=== PATIENT | male | born 1985 | race Two or more races ===

== ENCOUNTER 2020-08-03 06:38 | Emergency (ER) | payer OTHER, SELFPAY ==
[2020-08-03 06:53] VITALS: BP 116/73; PULSE 78; RESP 18; TEMP 35.8; O2SAT 97; BMI 24.3
--- NOTE | 2020-08-03 07:06 | ED.SKABFB ---
HPI - Skin/Abscess/Foreign Bdy General Chief complaint: Wound/Laceration Stated complaint: Wound Check Time Seen by Provider: 08/03/20 07:06 Source: patient Mode of arrival: ambulatory Limitations: no limitations History of Present Illness HPI narrative: left lesion left groin - x 3 months no associated symptoms has not followed up with the PCP complaint: lesion Onset (ago): month(s) (3) Location: generalized (left groin) Severity: mild Relieving factors: none Exacerbating factors: none Context: none Related Data Home Medications Medication Instructions Recorded Confirmed hydroxyzine HCl [Atarax] 100 mg PO NEEDED PRN 08/03/20 08/03/20 Allergies Allergy/AdvReac Type Severity Reaction Status Date / Time Penicillins [PCN] Allergy Mild RASH Verified 08/03/20 06:48 silver AdvReac Intermediate rash Verified 08/03/20 06:48 [From [employer] MESH] Review of Systems Review of Systems: Constitutional : No Fever, No Chills, Cardiovascular : No Chest Pain, No SOB Respiratory : No Dyspnea Gastrointestinal : No abdominal pain Musculoskeletal : No Joint Swelling Skin : No rash, positive skin lesion Neuro : No Weakness, No Numbness Psych : No SI/HI PMFSH Past Medical History Medical History (Updated 08/03/20 @ 07:08 by Margret Mack DO) Schizophrenia Social History Social History (Updated 08/03/20 @ 07:07 by Margret Mack DO) Smoking Status: Current every day smoker Substance Use Type: Marijuana Physical Exam Vital Signs and I&O and Narrative: Vital Signs and I&O: Vital Signs Temp 96.5 F L 08/03/20 06:53 Pulse 78 08/03/20 06:53 Resp 18 08/03/20 06:53 BP 116/73 08/03/20 06:53 Pulse Ox 97 08/03/20 06:53 Intake & Output 08/02/20 08/03/20 08/03/20 18:59 06:59 18:59 Weight 72.668 kg Body Mass Index 24.3 Appearance: Alert. Oriented X3. No acute distress. Eyes: Pupils equal, round and reactive to light. ENT: Pharynx normal. Neck: Normal inspection. Neck supple. CVS: Normal heart rate and rhythm. Pulses normal. Respiratory: No respiratory distress. Breath sounds normal. Abdomen: Soft and nontender. Skin: Skin warm and dry. Normal skin color. Normal skin turgor. L groin small 1cm firm lesion no erythema/ttp/no fluctuance, no signs of infection Extremities: No lower extremity edema. No lower extremity edema. Neuro: Oriented X 3. No motor deficit. No sensory deficit. MDM - Skin/Abscess/Foreign Bdy MDM Narrative Medical decision making narrative: chronic bump in left groin - no signs of infection, needs follow up for biopsy at this time, not on scrotum itself in groin from prior boil that he treated at home could be scar formation Discharge Plan Discharge Clinical Impression: Bumps on skin Patient Disposition: Home, Self-Care Instructions: Abscess Follow-up (ED) Prescriptions: No Action Atarax 100 mg Tablet 100 mg PO NEEDED PRN (Reason: Anxiety) RF: 0 Referrals: Ramon Thompson MD [Physician] - 3 days (call wednesday to schedule appointment)
== END 2020-08-03 08:06 | disposition home or self-care (01) ==
LOC: HO.ED 07:52
PROVIDERS: Emergency Provider Emergency Medicine
DX: L98.8 Other specified disorders of the skin and subcutaneous tissue (principal); R10.30 Lower abdominal pain, unspecified; F17.200 Nicotine dependence, unspecified, uncomplicated
CPT/HCPCS: 99283

== ENCOUNTER 2020-08-11 22:03 | Emergency (ER) | payer OTHER, SELFPAY ==
[2020-08-11 22:04] VITALS: BP 98/64; PULSE 98; RESP 16; TEMP 37.9; O2SAT 98; BMI 22.8
[2020-08-12 00:48] VITALS: BP 104/58; PULSE 84; RESP 16; TEMP 36.9; O2SAT 98
--- NOTE | 2020-08-12 00:49 | ED.GENADULT ---
HPI - General Adult General Chief complaint: General Medical Stated complaint: ABD PAIN Time Seen by Provider: 08/12/20 00:43 History of Present Illness HPI narrative: mid abdominal pain for the past 4 5 hours positive nausea no vomiting no diarrhea. Patient states he ate seafood and shortly afterwards started getting stomach cramping. Denies fevers or chills denies recent illness MD complaint: abdominal pain Onset (ago): hour(s) ( 3 hours) Severity: moderate Severity scale (1-10): 4 Quality: stabbing Pain Consistency: constant Relieving factors: none Related Data Home Medications Medication Instructions Recorded Confirmed hydroxyzine HCl [Atarax] 100 mg PO NEEDED PRN 08/03/20 08/03/20 Allergies Allergy/AdvReac Type Severity Reaction Status Date / Time Penicillins [PCN] Allergy Mild RASH Verified 08/03/20 06:48 silver AdvReac Intermediate rash Verified 08/03/20 06:48 [From [employer] MESH] Review of Systems Review of Systems: Constitutional : No Weight loss, No Fever, No Chills, No Night Sweats, No Fatigue, No Malaise ENT/Mouth : No Hearing loss, No Ear Pain, No Nasal Congestion, No Sinus Pain, No Hoarseness, No sore throat, No Rhinorrhea, No Swallowing Difficulty Eyes: No Eye Pain, No Swelling, No Redness, No Foreign Body, No Discharge, No Vision Changes Cardiovascular : No Chest Pain, No SOB, No Dyspnea on Exertion, No Orthopnea, No Edema, No Palpitations Respiratory : No Cough, No Sputum, No Wheezing, No Smoke Exposure, No Dyspnea Gastrointestinal : Positive Nausea, Positive Vomiting, positive Diarrhea, positive abdominal Pain, No Hematochezia, No Melena Genitourinary : no irregular bleeding, No Dysuria, No Urinary Frequency, No Hematuria, No Urinary Incontinence, No Urgency, No Flank Pain, No Urinary Flow Changes, No Hesitancy Musculoskeletal : No joint pain, No Myalgias, No Joint Swelling Skin : No Skin Lesions, No rash Neuro : No Weakness, No Numbness, No Paresthesias, No Loss of Consciousness, No Dizziness, No Headache Psych : No Anxiety/Panic, No Depression, No SI/HI/AH/VH, No Social Issues, Heme/Lymph: No Bruising, No Bleeding,No Lymphadenopathy Endocrine : No Polyuria, No Polydipsia, No Temperature Intolerance Yes all other systems are reviewed and are negative [facility] Past Medical History Medical History (Updated 08/12/20 @ 02:30 by Scott Terry DO) Foot drop, right foot Schizophrenia Surgical History (Updated 08/12/20 @ 00:51 by Scott Terry DO) No pertinent past surgical history Social History Social History Smoking Status: Current every day smoker Substance Use Type: Marijuana Advance Directives: No Advance Directives Information Provided: No Physical Exam Vital Signs: Vital Signs: Vital Signs Temp Pulse Resp BP Pulse Ox 08/12/20 02:45 98.2 F 76 16 106/49 L 98 08/12/20 00:48 98.4 F 84 16 104/58 L 98 08/11/20 22:04 100.2 F 98 16 98/64 98 Body Mass Index 22.8 insert vital signs Appearance: Alert. Oriented X3. No acute distress. Eyes: Pupils equal, round and reactive to light. ENT: Pharynx normal. Neck: Normal inspection. Neck supple. No lymph nodes noted. No crepitus CVS: Normal heart rate and rhythm. Pulses normal. Normal S1 and S2 Respiratory: No respiratory distress. Breath sounds normal. No Wheezing. No rales Abdomen: Soft and tenderness to mid abdomen. No rigidity. No distention. good BS x4 Skin: Skin warm and dry. Normal skin color. Normal skin turgor. Extremities: No lower extremity edema. Neurovascular intact to all extremities. No Lacerations. No Rash Neuro: Oriented X 3. No motor deficit. No sensory deficit. Moving all extermities. No slurred speech. Course Course Course Narrative: patient mid abdominal pain. Will get basic lab work IV fluids IV Toradol and IV Zofran Medical Decision Making [facility] Narrative Medical decision making narrative: 35-year-old male with 1 day history abdominal pain labs within normal limits. Patient wants to go home. Tolerating p.o. intake. No distress no discomfort Lab Data Result diagrams: 08/12/20 01:09 08/12/20 01:09 Labs: Lab Results 08/12/20 08/12/20 Range/Units 01:09 01:09 WBC 11.9 H (4.8-10.8) X10*3/uL RBC 3.93 L (4.60-5.80) X10*6/uL Hgb 13.1 L (14.0-18.0) g/dl Hct 38.8 L (42-52) % MCV 98.7 H (80-98) fL MCH 33.3 H (27.0-33.0) pg MCHC 33.8 (31.0-36.0) g/dl RDW 12.3 (11.0-16.0) % Plt Count 199 (160-400) X10*3/uL MPV 9.8 (9.4-12.4) fL Immature Gran % (Auto) 0.3 (0.0-0.4) % Neut % (Auto) 58.3 (45-73) % Lymph % (Auto) 31.2 (20-40) % Jones % (Auto) 6.9 (2-11) % Eos % (Auto) 2.9 (0-4) % Baso % (Auto) 0.4 (0-2) % Lymph # (Auto) 3.7 (1.2-4.9) X10*3/uL Jones # (Auto) 0.8 (0.1-1.2) X10*3/uL Eos # (Auto) 0.3 (0.0-0.4) X10*3/uL Baso # (Auto) 0.1 (0.0-0.2) X10*3/uL Abs Immat Gran (auto) 0.03 (0.00-0.03) X10*3/uL Absolute Neuts (auto) 6.9 (2.0-8.3) X10*3/uL Absolute Nucleated RBC 0.000 (0.0-0.012) X10*3/uL Nucleated RBC % (auto) 0.0 (0.0-0.2) /100WBC Sodium 141 (135-145) mmol/L Potassium 3.8 (3.3-5.1) mmol/l Chloride 105 (96-108) mmol/L Carbon Dioxide 31 H (22-29) mmol/L Anion Gap 9 L (12-20) BUN 15 (9-16) mg/dL Creatinine 1.10 (0.5-1.4) mg/dL Estim Creat Clear Calc 90.2 Estimated GFR > 60 Random Glucose 86 (60-115) mg/dL Calcium 8.5 (8.4-10.2) mg/dL Total Bilirubin 0.3 (0.0-1.0) mg/dL Direct Bilirubin < 0.2 (0.0-0.5) mg/dL AST 29 (5-37) U/L ALT 84 H (0-40) U/L Alkaline Phosphatase 63 (39-117) U/L Total Protein 6.4 L (6.5-8.0) g/dL Albumin 4.0 (3.5-5.0) g/dL Lipase 35 (8-78) U/L Discharge Plan Discharge Clinical Impression: Abdominal pain Qualifiers: Abdominal location: generalized Qualified Code(s): R10.84 - Generalized abdominal pain Patient Disposition: Home, Self-Care Instructions: Abdominal Pain (ED) Additional Instructions: Thank you for visiting the emergency department today. If your symptoms worsen or do not resolve completely please return to the emergency department immediately or call 911. if he have any questions please call your primary care physician Prescriptions: No Action Atarax 100 mg Tablet 100 mg PO NEEDED PRN (Reason: Anxiety) RF: 0 Referrals: [facility] [Provider Group] - 2 days Interventions: ED Discharge Assessment Last Done: 08/12/20 02:57 Discharge Date/Time: 08/12/20 02:58
[2020-08-12] MEDS: Ketorolac Tromethamine 30 MG/ML VIAL IVPUSH (01:10)
[2020-08-12] MEDS: ondansetron HCL 4 MG/2 ML VIAL IVPUSH (01:10)
[2020-08-12] MEDS: 0.9 % Sodium Chloride 1,000 ML 999 ML IVCONT (01:10)
[2020-08-12 01:16] LABS: Basophils Absolute Auto 0.1 X10*3/uL (0.0-0.2); Basophils Percent Auto 0.4 % (0-2); Eosinophils Absolute Auto 0.3 X10*3/uL (0.0-0.4); Eosinophils Percent Auto 2.9 % (0-4); Hematocrit 38.8 % (42-52); Hemoglobin 13.1 g/dl (14.0-18.0); Imm Gran Abs Auto 0.03 X10*3/uL (0.00-0.03); Imm Gran Pct Auto 0.3 % (0.0-0.4); Lymphocytes Absolute Auto 3.7 X10*3/uL (1.2-4.9); Lymphocytes Percent Auto 31.2 % (20-40); MANUAL DIFF FLAG NO; Mean Corpuscular HGB Conc 33.8 g/dl (31.0-36.0); Mean Corpuscular Hemoglobin 33.3 pg (27.0-33.0); Mean Corpuscular Volume 98.7 fL (80-98); Mean Platelet Volume 9.8 fL (9.4-12.4); Monocytes Absolute Auto 0.8 X10*3/uL (0.1-1.2); Monocytes Percent Auto 6.9 % (2-11); Neutrophils Absolute Auto 6.9 X10*3/uL (2.0-8.3); Neutrophils Percent Auto 58.3 % (45-73); Platelet Count 199 X10*3/uL (160-400); Red Blood Count 3.93 X10*6/uL (4.60-5.80); Red Cell Distribution Width 12.3 % (11.0-16.0); White Blood Count 11.9 X10*3/uL (4.8-10.8)
[2020-08-12 02:00] LABS: Alanine Aminotransferase 84 U/L (0-40); Alkaline Phosphatase 63 U/L (39-117); Anion Gap 9 (12-20); Aspartate Amino Transferase 29 U/L (5-37); Bilirubin Direct < 0.2 mg/dL (0.0-0.5); Bilirubin Total 0.3 mg/dL (0.0-1.0); Blood Urea Nitrogen 15 mg/dL (9-16); Calcium 8.5 mg/dL (8.4-10.2); Carbon Dioxide 31 mmol/L (22-29); Chloride 105 mmol/L (96-108); Creatinine Clr Calc Pharmacy 90.2; Estimated Glomerular Filt Rate > 60; Glucose Random 86 mg/dL (60-115); Lipase 35 U/L (8-78); Potassium 3.8 mmol/l (3.3-5.1); Sodium 141 mmol/L (135-145); Total Protein 6.4 g/dL (6.5-8.0)
[2020-08-12 02:45] VITALS: BP 106/49; PULSE 76; RESP 16; TEMP 36.8; O2SAT 98
== END 2020-08-12 02:58 | disposition home or self-care (01) ==
PROVIDERS: Emergency Provider Emergency Medicine
DX: R10.84 Generalized abdominal pain (principal); F17.200 Nicotine dependence, unspecified, uncomplicated; F12.90 Cannabis use, unspecified, uncomplicated
CPT/HCPCS: 36415; 80048; 80076; 83690; 85025; 96361; 96374; 96375; 99284; J1885; J2405

== ENCOUNTER 2020-08-13 04:35 | Emergency (ER) | payer OTHER, SELFPAY ==
[2020-08-13 04:39] VITALS: BP 140/74; PULSE 74; RESP 16; TEMP 36.2; O2SAT 98; BMI 22.0
--- NOTE | 2020-08-13 05:38 | ED_ITS ---
HPI - GI Bleed General Chief complaint: GI Bleed Stated complaint: HEMORRHOIDS Time Seen by Provider: 08/13/20 05:29 Source: patient Mode of arrival: ambulatory Limitations: no limitations History of Present Illness HPI Narrative: Patient comes to emergency room complaining of anal pain with bowel movements and constipation. last night, patient noticed blood in the toilet paper after he wiped. MD complaint: blood on toilet paper Onset (ago): day(s) Pain Consistency: intermittent Severity: moderate Relieving factors: none Exacerbating factors: bowel movement Treatments Prior to Arrival: none Related Data Home Medications Medication Instructions Recorded Confirmed hydroxyzine HCl [Atarax] 100 mg PO NEEDED PRN 08/03/20 08/03/20 Previous Rx's Medication Instructions Recorded hydrocortisone [Anusol-HC] 1 applic [place] BEDTIME PRN #30 g 08/13/20 polyethylene glycol 3350 [Miralax] 17 g PO DAILY #119 g 08/13/20 Allergies Allergy/AdvReac Type Severity Reaction Status Date / Time Penicillins [PCN] Allergy Mild RASH Verified 08/03/20 06:48 silver AdvReac Intermediate rash Verified 08/03/20 06:48 [From [employer] MESH] Review of Systems Review of Systems: Constitutional: No Weight loss, No Fever, No Chills, No Night Sweats, No Fatigue, No Malaise ENT/Mouth: No Hearing loss, No Ear Pain, No Nasal Congestion, No Sinus Pain, No Hoarseness, No sore throat, No Rhinorrhea, No Swallowing Difficulty Eyes: No Eye Pain, No Swelling, No Redness, No Foreign Body, No Discharge, No Vision Changes Cardiovascular: No Chest Pain, No SOB, No Dyspnea on Exertion, No Orthopnea, No Edema, No Palpitations Respiratory: No Cough, No Sputum, No Wheezing, No Smoke Exposure, No Dyspnea Gastrointestinal: No Nausea, No Vomiting, No Diarrhea, Three weeks with Constipation, No abdominal Pain, anal pain with bowel movements and wiping Genitourinary: no irregular bleeding, No Dysuria, No Urinary Frequency, No Hematuria, No Urinary Incontinence, No Urgency, No Flank Pain, No Urinary Flow Changes, No Hesitancy Musculoskeletal: No joint pain, No Myalgias, No Joint Swelling Skin: No Skin Lesions, No rash Neuro: No Weakness, No Numbness, No Paresthesias, No Loss of Consciousness, No Dizziness, No Headache Psych: No Anxiety/Panic, No Depression, No SI/HI/AH/VH, No Social Issues, Heme/Lymph: No Bruising, No Bleeding,No Lymphadenopathy Endocrine: No Polyuria, No Polydipsia, No Temperature Intolerance [facility] Past Medical History Medical History Foot drop, right foot Schizophrenia Surgical History No pertinent past surgical history Social History Social History Smoking Status: Current every day smoker Substance Use Type: Marijuana Advance Directives: No Physical Exam Vital Signs: Vital Signs: Vital Signs Temp Pulse Resp BP Pulse Ox 08/13/20 04:39 97.1 F 74 16 140/74 H 98 Body Mass Index 22.0 Appearance: Alert. Oriented X3. No acute distress. Eyes: Pupils equal, round and reactive to light. ENT: Pharynx normal. Neck: Normal inspection. Neck supple. No lymph nodes noted. No crepitus CVS: Normal heart rate and rhythm. Pulses normal. Normal S1 and S2 Respiratory: No respiratory distress. Breath sounds normal. No Wheezing. No rales Abdomen: Soft and nontender. No rigidity. No distention. good BS x4. rectal exam shows fissures, no blood Skin: Skin warm and dry. Normal skin color. Normal skin turgor. Extremities: No lower extremity edema. No lower extremity edema. No Lacerations. No Rash Neuro: Oriented X 3. No motor deficit. No sensory deficit. Moving all extermities. No slurred speech. MDM - GI Bleed MDM Narrative Medical decision making narrative: patient declined KENN[facility]Y. I discussed with the patient the physical exam, patient has features in the anus. Discussed with the patient that these are likely secondary to the constipation. Differential Diagnosis Differential diagnosis: Likely hemorrhoids and anal fissure Discharge Plan Discharge Clinical Impression: Anal fissure Patient Disposition: Home, Self-Care Instructions: Anal Fissure (ED) Additional Instructions: If you have any worsening symptoms, any new symptoms, please return to the emergency room or call 911 Prescriptions: New hydrocortisone [Anusol-HC] 2.5 % cream with perineal applicator 1 applic DC BEDTIME PRN (Reason: pain) Qty: 30 RF: 0 polyethylene glycol 3350 [Miralax] 17 gram/dose powder 17 g PO DAILY Qty: 119 RF: 0 No Action Atarax 100 mg Tablet 100 mg PO NEEDED PRN (Reason: Anxiety) RF: 0
== END 2020-08-13 05:59 | disposition home or self-care (01) ==
PROVIDERS: Emergency Provider Emergency Medicine
DX: K60.2 Anal fissure, unspecified (principal); F17.200 Nicotine dependence, unspecified, uncomplicated; F12.90 Cannabis use, unspecified, uncomplicated; Z79.899 Other long term (current) drug therapy
CPT/HCPCS: 99283

== ENCOUNTER 2020-08-14 04:08 | Emergency (ER) | payer OTHER, SELFPAY ==
[2020-08-14 04:59] VITALS: BP 130/80; PULSE 83; RESP 18; TEMP 36.9; O2SAT 98; BMI 23.5
== END 2020-08-14 05:48 | disposition left against medical advice (07) ==
PROVIDERS: Emergency Provider Emergency Medicine
DX: K59.00 Constipation, unspecified (principal)
CPT/HCPCS: 99281; 99284

== ENCOUNTER 2020-08-15 07:31 | Emergency (ER) | payer OTHER, SELFPAY ==
[2020-08-15 07:54] VITALS: BP 144/80; PULSE 76; RESP 14; TEMP 36.9; O2SAT 96; BMI 24.2
--- NOTE | 2020-08-15 07:59 | ED.BACK ---
HPI - Back Pain/Injury General Chief Complaint: Back Pain/Injury Stated Complaint: BACK PAIN Time Seen by Provider: 08/15/20 07:58 Source: patient Mode of arrival: ambulatory History of Present Illness HPI Narrative: 35 years old male came in with acute on chronic back pain, patient had old back injury related to work many years ago. MD elicited complaint: back pain Pertinent past history: prior back pain Onset (ago): week(s) ( Several) Timing: constant Severity: moderate Similar Symptoms Previously: Yes Quality: dull Location: lumbar spine Radiation: none Exacerbating factors: immobilization Relieving factors: immobilization Related Data Home Medications Medication Instructions Recorded Confirmed hydroxyzine HCl [Atarax] 100 mg PO NEEDED PRN 08/03/20 08/03/20 Previous Rx's Medication Instructions Recorded hydrocortisone [Anusol-HC] 1 applic [place] BEDTIME PRN #30 g 08/13/20 polyethylene glycol 3350 [Miralax] 17 g PO DAILY #119 g 08/13/20 cyclobenzaprine 10 mg PO TID PRN #30 tab 08/15/20 Allergies Allergy/AdvReac Type Severity Reaction Status Date / Time Penicillins [PCN] Allergy Mild RASH Verified 08/14/20 04:59 silver AdvReac Intermediate rash Verified 08/14/20 04:59 [From [employer] MESH] Review of Systems Review of Systems: Yes all other systems are reviewed and are negative PMFSH Past Medical History Attestation statement: The following information was validated with the patient. Medical History Foot drop, right foot Schizophrenia Surgical History No pertinent past surgical history Social History Social History Alcohol intake: never Smoking Status: Current every day smoker Use of substances other than those prescribed or required for medical reasons: Yes Substance Use Type: Marijuana Substance Use Frequency: Daily Physical Exam Vital Signs: Vital Signs: Vital Signs Temp Pulse Resp BP Pulse Ox 08/15/20 07:54 98.4 F 76 14 144/80 H 96 Body Mass Index 24.2 Const: General: cooperative and healthy appearing Orientation/consciousness: oriented to person HENMT: Head: Yes normal to inspection and Yes No palpable skull fracture present Ears: hearing grossly normal bilaterally General nose exam: Normal external nose present Eyes: General: appearance normal, both eyes and all related structures Neck: Neck: Yes normal visual inspection Chest: Chest palpation & inspection: normal inspection of the chest Resp: Effort & Inspection: normal respiratory effort Cardio: Jugular venous distension: no JVD Palpation: normal PMI GI: Inspection: Yes normal to inspection : General: Yes Bimanual renal exam normal bilaterally and Yes no CVA tenderness Back/Spine/Pelvis: Back: no CVA tenderness Cervical Spine: normal cervical lordosis Thoracic/Lumbar Spine: straight leg raise negative bilaterally Pelvis: no pain with anterior-posterior compression Skin: General skin exam: no rashes or lesions noted Neuro: General: oriented to person Cognition (Neuro): normal cognition Gait exam (Neuro): Normal gait present Motor exam (neuro): 5/5 motor strength present throughout Extrem: Other: chronic right foot drop. General: Yes normal to inspection Psych: Appearance: grossly normal Mental Status: mental status grossly normal Speech and movement: Normal speech and movement present Course Course Course Narrative: Acute on chronic back pain due to old work injury. Reevaluation(s) Reevaluation #1: Patient is applying lidocaine patches on the lower back, patient felt better with Flexeril. MDM - Back Pain/Injury MDM Narrative Medical decision making narrative: 35-year-old male acute on chronic back pain due to old work-related injury with chronic right foot drop, patient ran out of his Flexeril muscle relaxant. Normal neuro exam. Will discharge with Flexeril prescription. Differential Diagnosis Differential diagnosis: Likely lumbar radiculopathy and strain of lumbar region Medical Records Attestation: I reviewed the patient's medical records. Discharge Plan Discharge Clinical Impression: Strain of lumbar region Patient Disposition: Home, Self-Care Instructions: Chronic Back Pain (DC) Prescriptions: New cyclobenzaprine 10 mg tablet 10 mg PO TID PRN (Reason: muscle spasm) Qty: 30 RF: 0 No Action Atarax 100 mg Tablet 100 mg PO NEEDED PRN (Reason: Anxiety) RF: 0 hydrocortisone [Anusol-HC] 2.5 % cream with perineal applicator 1 applic [place] BEDTIME PRN (Reason: pain) Qty: 30 RF: 0 polyethylene glycol 3350 [Miralax] 17 gram/dose powder 17 g PO DAILY Qty: 119 RF: 0
[2020-08-15] MEDS: Cyclobenzaprine HCl 10 MG TABLET PO (08:14)
== END 2020-08-15 08:20 | disposition home or self-care (01) ==
LOC: HO.ED 08:12
PROVIDERS: Emergency Provider Emergency Medicine
DX: S39.012A Strain of muscle, fascia and tendon of lower back, initial encounter (principal); X58.XXXA Exposure to other specified factors, initial encounter; F17.200 Nicotine dependence, unspecified, uncomplicated; F12.90 Cannabis use, unspecified, uncomplicated; Y93.9 Activity, unspecified; Y92.9 Unspecified place or not applicable; Y99.0 Civilian activity done for income or pay; Z79.899 Other long term (current) drug therapy
CPT/HCPCS: 99283; 99284

== ENCOUNTER 2020-08-15 20:12 | Emergency (ER) | payer OTHER, SELFPAY ==
[2020-08-15 20:47] VITALS: BP 113/60; PULSE 70; RESP 16; TEMP 37.2; O2SAT 100; BMI 22.0
--- NOTE | 2020-08-15 21:26 | PC.NURSE ---
PT IN W/C ROLLING ALL AROUND REPEATIVELY TOLD HE NEEDED TO STAY IN ROOM. PT KEEPS STATING HE HAS IMORTANT THING TO DO AND HE IS NOT WAITING ALL DAY RADHA TEE IN ROOM TO ASSESS PT.
--- NOTE | 2020-08-15 21:27 | ED.LOWEXIN ---
HPI - Extremity Injury (Lower) General Chief Complaint: Extremity Injury, Lower Stated Complaint: FOOT PAIN Source: patient Mode of arrival: ambulatory Limitations: no limitations History of Present Illness HPI Narrative: Patient presents to the ED for chronic right lower extremity. patient has Right foot drop this year and never followed up with orthopedics. patient denies any new trauma. MD complaint: leg injury Related Data Home Medications Medication Instructions Recorded Confirmed hydroxyzine HCl [Atarax] 100 mg PO NEEDED PRN 08/03/20 08/03/20 Previous Rx's Medication Instructions Recorded hydrocortisone [Anusol-HC] 1 applic [place] BEDTIME PRN #30 g 08/13/20 polyethylene glycol 3350 [Miralax] 17 g PO DAILY #119 g 08/13/20 cyclobenzaprine 10 mg PO TID PRN #30 tab 08/15/20 tramadol 50 mg PO Q8H PRN #12 tab 08/15/20 Allergies Allergy/AdvReac Type Severity Reaction Status Date / Time Penicillins [PCN] Allergy Mild RASH Verified 08/16/20 01:55 silver AdvReac Intermediate rash Verified 08/16/20 01:55 [From [employer] MESH] Review of Systems Review of Systems: Yes all other systems are reviewed and are negative and unobtainable due to endotracheal tube Constitutional: Constitutional: Reports as per HPI and Reports no additional constitutional complaints ENT: Reports system reviewed and no additional complaints, except as documented and Reports as per HPI Cardiovascular: Cardiovascular: Reports as per HPI, Reports no additional cardiovascular complaints, Denies chest pain at rest, Denies chest pain with activity and Denies dyspnea Respiratory: Respiratory: Reports as per HPI, Reports no additional respiratory complaints, Denies chest congestion, Denies excessive phlegm production, Denies pain on inspiration, Denies pain with cough and Denies dyspnea Musculoskeletal: Comments: Chronic Right lower extremity pain PMFSH Past Medical History Medical History Foot drop, right foot Schizophrenia Surgical History No pertinent past surgical history Social History Social History Alcohol intake: never Smoking Status: Current every day smoker Substance Use Type: Marijuana Advance Directives: No Advance Directives Information Provided: No Physical Exam Vital Signs: Vital Signs: Vital Signs Temp Pulse Resp BP Pulse Ox 08/15/20 20:47 98.9 F 70 16 113/60 100 Body Mass Index 22.0 Const: General: cooperative, healthy appearing and comfortable Orientation/consciousness: oriented to person, oriented to place, oriented to time and patient oriented x3 HENMT: Head: Yes normal to inspection Eyes: General: appearance normal, both eyes and all related structures Neck: Neck: Yes normal visual inspection and Yes full ROM Chest: Chest palpation & inspection: normal inspection of the chest and normal palpation of entire chest wall Resp: Effort & Inspection: normal respiratory effort and able to speak in complete sentences Cardio: Jugular venous distension: no JVD Heart sounds: S1 normal heart sound present and S2 normal heart sound present GI: Inspection: Yes normal to inspection, No abdominal wall ecchymosis, No Abdominal wall edema and No distended : General: No CVA tenderness and Yes no CVA tenderness Back/Spine/Pelvis: Back: no CVA tenderness and No CVA tenderness Skin: General skin exam: no rashes or lesions noted Neuro: Other: chronic right lower extremity foot drop. Vascular and neuro exam is intact. Patient ambulates with a limp General: oriented to person, oriented to place, oriented to time, patient oriented x3 and CN's II-XI intact bilaterally Cranial nerves: Yes CN's II-XII intact bilaterally Extrem: General: Yes normal to inspection and Yes full ROM Psych: Appearance: grossly normal and well kempt Course Course Course Narrative: patient states he wants a referral for orhopedic and also prescription for pain. No new imaging indicated Reevaluation(s) Reevaluation #1: patient is safe for discharge. Patient walked out the ED before recieving discharge papers and prescription. MDM - Extremity Injury (Lower) MDM Narrative Medical decision making narrative: FOot drop Discharge Plan Discharge Clinical Impression: Foot drop, right Patient Disposition: Elopement Instructions: Foot Drop (ED) Additional Instructions: Return to the ED for any leg swelling, redness, calf pain, weakness, chest pain, shortness, worsening gait, or any other concerning symptoms. Prescriptions: New tramadol 50 mg tablet 50 mg PO Q8H PRN (Reason: pain) Qty: 12 RF: 0 No Action Atarax 100 mg Tablet 100 mg PO NEEDED PRN (Reason: Anxiety) RF: 0 hydrocortisone [Anusol-HC] 2.5 % cream with perineal applicator 1 applic [place] BEDTIME PRN (Reason: pain) Qty: 30 RF: 0 polyethylene glycol 3350 [Miralax] 17 gram/dose powder 17 g PO DAILY Qty: 119 RF: 0 cyclobenzaprine 10 mg tablet 10 mg PO TID PRN (Reason: muscle spasm) Qty: 30 RF: 0 Referrals: Oh Clemente MD [Physician] - 2 days ( Right foot drop since the summer and patient never followed up.) Interventions: ED Discharge Assessment Last Done: 08/15/20 21:52 Discharge Date/Time: 08/15/20 21:31 Print Language: [place]i
--- NOTE | 2020-08-15 21:30 | PC.NURSE ---
PT STATED HE DID NOT WANT TO WAIT FOR PAPER WORK AND LEFT ROOM AMBULATING WITH STEADY GAIT.
== END 2020-08-15 21:31 | disposition left against medical advice (07) ==
PROVIDERS: Emergency Provider Emergency Medicine
DX: M21.371 Foot drop, right foot (principal)
CPT/HCPCS: 99283; 99284

== ENCOUNTER 2020-08-16 01:46 | Emergency (ER) | payer OTHER, SELFPAY ==
[2020-08-16 01:49] VITALS: BP 122/64; PULSE 73; RESP 16; TEMP 35.6; O2SAT 99; BMI 52.0
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
--- NOTE | 2020-08-16 03:05 | XR_ITS ---
EXAMINATION: XR ANKLE, RIGHT CLINICAL INFORMATION: Acute on chronic right ankle pain COMPARISON: None TECHNIQUE: AP, lateral, and mortise views of the right ankle. FINDINGS: Osseous alignment is anatomic. No acute fracture is seen. No significant focal soft tissue abnormality identified. IMPRESSION: No acute findings.
--- NOTE | 2020-08-16 03:05 | XR_ITS ---
EXAMINATION: XR KNEE, RIGHT CLINICAL INFORMATION: Worsening right knee pain COMPARISON: None TECHNIQUE: Four views of the right knee. FINDINGS: Osseous alignment is anatomic. Joint spaces are maintained. No acute fracture is seen. No significant effusion. IMPRESSION: No acute findings.
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
--- NOTE | 2020-08-16 03:43 | PC.NURSE ---
pt dressed and ambulatory with steady gait in room.
== END 2020-08-16 04:17 | disposition home or self-care (01) ==
PROVIDERS: Emergency Provider Emergency Medicine
DX: M25.561 Pain in right knee (principal); M25.571 Pain in right ankle and joints of right foot; M54.5 Low back pain; Z79.899 Other long term (current) drug therapy
CPT/HCPCS: 73564; 73610; 99283

== ENCOUNTER 2020-08-17 05:10 | Emergency (ER) | payer OTHER, SELFPAY ==
[2020-08-17 05:19] VITALS: BP 108/58; PULSE 72; RESP 16; TEMP 37.1; O2SAT 97; BMI 22.3
[2020-08-17 06:02] VITALS: BP 108/58; PULSE 72; RESP 16; TEMP 37.1
[2020-08-17] MEDS: Acetaminophen 325 MG TABLET 975 MG PO (06:04)
[2020-08-17] MEDS: Ketorolac Tromethamine 15 MG/ML VIAL IM (06:05)
[2020-08-17] MEDS: Lidocaine 4 % Patch ADH..PATCH 1 PATCH TRANSDERMA (06:08)
--- NOTE | 2020-08-17 06:30 | ED_ITS ---
HPI - Back Pain/Injury General Chief Complaint: Back Pain/Injury Stated Complaint: Back pain Time Seen by Provider: 08/17/20 05:25 Source: patient Mode of arrival: ambulatory Limitations: no limitations History of Present Illness HPI Narrative: this is a 35-year-old male who presents with chronic back pain that he states he ran out of lidocaine patches for and has been worsening over the past 1-2 days. Patient denies any associated fevers, chills, urinary pain /burning / frequency, diarrhea, or nausea/vomiting. Related Data Home Medications Medication Instructions Recorded Confirmed hydroxyzine HCl [Atarax] 100 mg PO NEEDED PRN 08/03/20 08/03/20 Previous Rx's Medication Instructions Recorded hydrocortisone [Anusol-HC] 1 applic [place] BEDTIME PRN #30 g 08/13/20 polyethylene glycol 3350 [Miralax] 17 g PO DAILY #119 g 08/13/20 cyclobenzaprine 10 mg PO TID PRN #30 tab 08/15/20 tramadol 50 mg PO Q8H PRN #12 tab 08/15/20 ketorolac 10 mg PO Q6H PRN 5 Days #20 tab 08/17/20 Allergies Allergy/AdvReac Type Severity Reaction Status Date / Time Penicillins [PCN] Allergy Mild RASH Verified 08/16/20 01:55 silver AdvReac Intermediate rash Verified 08/16/20 01:55 [From TEGADERM AG MESH] Review of Systems Review of Systems: Pertinent positives and negatives as stated in HPI 10 point review systems is otherwise negative. [facility] Past Medical History Source: nursing notes reviewed Medical History Foot drop, right foot Schizophrenia Surgical History No pertinent past surgical history Social History Social History Alcohol intake: former Smoking Status: Current every day smoker Smoked in Last 30 Days: Yes Use of substances other than those prescribed or required for medical reasons: Yes Substance Use Type: Marijuana Substance Use Frequency: Daily Last Used Substance: Just Prior to Admission Any prior treatment program specific to substance use: No Advance Directives: No Advance Directives Information Provided: No Physical Exam Vital Signs: Vital Signs: Vital Signs Temp Pulse Resp BP Pulse Ox 10/17/20 06:02 98.7 F 72 16 108/58 L 08/17/20 05:19 98.7 F 72 16 108/58 L 97 Body Mass Index 22.3 VITAL SIGNS: Reviewed. GENERAL: Well developed, well nourished, in no acute distress. HEAD: Normocephalic/atraumatic, EYES: PERRLA, EOMI intact without pain, no nystagmus/pallor/icterus noted EARS: Ext canals without abnormality, TMs non-bulging and non-erythematous NOSE: Nares patent bilateral OROPHARYNX: no oral lesions noted, posterior pharynx clear and non-erythematous without noted tonsillar enlargement/erythema/exudates NECK: Supple, no adenopathy LUNGS: Normal breath sounds. No adventitious sounds or accessory muscle use. SpO2<97%> CARDIOVASCULAR: Regular rate and rhythm without noted murmurs, no JVD or lower extremity edema. ABDOMEN: Soft, non-tender, non-distended with bowel sounds. No rigidity. No guarding. No palpable masses or hernias noted MUSCULOSKELETAL: No tenderness, deformities, or effusions noted on gross inspection. EXTREMITIES: No cyanosis, clubbing or edema. BACK: Straight leg test is negative strength 5/5 and symmetric SKIN: Inspection of the skin reveals no rashes, ulcerations, jaundice, pallor, or petechiae. NEUROLOGIC: Alert and oriented x 4. Strength and sensation to light touch were grossly intact Course Course Course Narrative: this is a 35-year-old male with history and clinical presentation consistent with chronic lower back pain with a very mild exacerbation and doubt renal colic, UTI/cystitis. Patient received combination analgesics here in the emergency department with almost complete resolution of symptoms on re-evaluation. Patient was reassured and given a treatment regimen as well as exercises to further assist in back recovery. Discharge Plan Discharge Clinical Impression: Back pain Qualifiers: Back pain location: low back pain Chronicity: chronic Back pain laterality: left Sciatica presence: without sciatica Qualified Code(s): M54.5 - Low back pain Patient Disposition: Home, Self-Care Instructions: Back Pain (ED), Lower Back Exercises (ED) Additional Instructions: 1. Tylenol 1000 mg, orally, every 6 hours as needed for pain control. Do not exceed 4000 mg within 24 hours. 2. lidocaine patch, Called Salonpas, available in every [facility] [place], apply to area of maximal tenderness as directed on the outside packaging. The patient and/or family acknowledge understanding of results (as applicable), diagnosis, treatment plan, need for follow up, and symptoms that should prompt a return to the emergency room. Prescriptions: New ketorolac 10 mg tablet 10 mg PO Q6H PRN (Reason: pain) 5 Days Qty: 20 RF: 0 No Action Atarax 100 mg Tablet 100 mg PO NEEDED PRN (Reason: Anxiety) RF: 0 hydrocortisone [Anusol-HC] 2.5 % cream with perineal applicator 1 applic [place] BEDTIME PRN (Reason: pain) Qty: 30 RF: 0 polyethylene glycol 3350 [Miralax] 17 gram/dose powder 17 g PO DAILY Qty: 119 RF: 0 cyclobenzaprine 10 mg tablet 10 mg PO TID PRN (Reason: muscle spasm) Qty: 30 RF: 0 tramadol 50 mg tablet 50 mg PO Q8H PRN (Reason: pain) Qty: 12 RF: 0 Referrals: Physician,Unknown [Primary Care Provider] - 2 days Discharge Date/Time: 08/17/20 06:33
[2020-08-17 06:31] LABS: Appearance Urine CLEAR; Color Urine YELLOW; Glucose Urine UA NEG (NEG); Leukocyte Esterase Urine NEG (NEG); Nitrite Urine NEG (NEG); Specific Gravity - Urine >= 1.030 (1.005-1.025); UACC Culture Trigger NO; Urine Blood NEG (NEG); Urine Ketones NEG (NEG); Urine Protein NEG (NEG-TRACE)
== END 2020-08-17 06:33 | disposition home or self-care (01) ==
PROVIDERS: Emergency Provider Student in an Organized Health Care Education/Training Program
DX: G89.29 Other chronic pain (principal); M54.5 Low back pain; F17.200 Nicotine dependence, unspecified, uncomplicated; F20.9 Schizophrenia, unspecified; Z79.899 Other long term (current) drug therapy
CPT/HCPCS: 81003; 96372; 99284; J1885

== ENCOUNTER 2020-08-18 05:14 | Emergency (ER) | payer OTHER, SELFPAY ==
[2020-08-18 05:22] VITALS: BP 111/56; PULSE 84; RESP 15; TEMP 36.7; O2SAT 98; BMI 25.8
--- NOTE | 2020-08-18 05:24 | ED.BACK ---
HPI - Back Pain/Injury General Chief Complaint: Back Pain/Injury Stated Complaint: BACK PAIN Time Seen by Provider: 08/18/20 05:24 History of Present Illness HPI Narrative: This is a 35-year-old male who returns to the emergency department with complaints right greater than left lower back discomfort with radiation into the right lower extremity but denies any associated numbness/tingling/ weakness in that lower extremity. In addition, patient denies any bowel or bladder dysfunction which includes no loss of sensation in the perineal area. Patient states that he was unable to get his prescription that he was provided yesterday due to other obligations. Related Data Home Medications Medication Instructions Recorded Confirmed hydroxyzine HCl [Atarax] 100 mg PO NEEDED PRN 08/03/20 08/03/20 Previous Rx's Medication Instructions Recorded hydrocortisone [Anusol-HC] 1 applic [place] BEDTIME PRN #30 g 08/13/20 polyethylene glycol 3350 [Miralax] 17 g PO DAILY #119 g 08/13/20 cyclobenzaprine 10 mg PO TID PRN #30 tab 08/15/20 tramadol 50 mg PO Q8H PRN #12 tab 08/15/20 ketorolac 10 mg PO Q6H PRN 5 Days #20 tab 08/17/20 Allergies Allergy/AdvReac Type Severity Reaction Status Date / Time Penicillins [PCN] Allergy Mild RASH Verified 08/16/20 01:55 silver AdvReac Intermediate rash Verified 08/16/20 01:55 [From TEGADERM AG MESH] Review of Systems Review of Systems: Pertinent positives and negatives as stated in HPI 10 point review of systems is otherwise negative. [facility] Past Medical History Source: nursing notes reviewed Medical History Foot drop, right foot Schizophrenia Surgical History No pertinent past surgical history Social History Social History Alcohol intake: unknown Smoking Status: Unknown if ever smoked Use of substances other than those prescribed or required for medical reasons: Unknown Substance Use Type: Marijuana Advance Directives: No Physical Exam Vital Signs: Vital Signs: Vital Signs Temp Pulse Resp BP Pulse Ox 08/18/20 05:22 98.1 F 84 15 111/56 L 98 Body Mass Index 25.8 VITAL SIGNS: Reviewed. GENERAL: Well developed, well nourished, in no acute distress. HEAD: Normocephalic/atraumatic, EYES: PERRLA, EOMI intact without pain, no nystagmus/pallor/icterus noted EARS: Ext canals without abnormality, TMs non-bulging and non-erythematous NOSE: Nares patent bilateral OROPHARYNX: no oral lesions noted, posterior pharynx clear and non-erythematous without noted tonsillar enlargement/erythema/exudates NECK: Supple, no adenopathy LUNGS: Normal breath sounds. No adventitious sounds or accessory muscle use. SpO2<98%> CARDIOVASCULAR: Regular rate and rhythm without noted murmurs, no JVD or lower extremity edema. ABDOMEN: Soft, non-tender, non-distended with bowel sounds. No rigidity. No guarding. No palpable masses or hernias noted MUSCULOSKELETAL: No tenderness, deformities, or effusions noted on gross inspection. EXTREMITIES: No cyanosis, clubbing or edema, No noted footdrop SKIN: Inspection of the skin reveals no rashes, ulcerations, jaundice, pallor, or petechiae. NEUROLOGIC: Alert and oriented x 4. Strength and sensation to light touch were grossly intact x 4. Course Course Course Narrative: this is a 35-year-old male with history and clinical presentation consistent with inability to fill prescription and now presenting with consistent symptoms as yesterday. Patient will be provided a combination of analgesics for his discomfort and discharged in stable condition. There were no further symptoms to prompt repeat lab work or urinalysis. Discharge Plan Discharge Clinical Impression: Back pain with right-sided sciatica Patient Disposition: Home, Self-Care Instructions: Lumbar Radiculopathy (ED), Lower Back Exercises (ED) Additional Instructions: The patient and/or family acknowledge understanding of results (as applicable), diagnosis, treatment plan, need for follow up, and symptoms that should prompt a return to the emergency room. Prescriptions: No Action ketorolac 10 mg tablet 10 mg PO Q6H PRN (Reason: pain) 5 Days Qty: 20 RF: 0 Atarax 100 mg Tablet 100 mg PO NEEDED PRN (Reason: Anxiety) RF: 0 hydrocortisone [Anusol-HC] 2.5 % cream with perineal applicator 1 applic [place] BEDTIME PRN (Reason: pain) Qty: 30 RF: 0 polyethylene glycol 3350 [Miralax] 17 gram/dose powder 17 g PO DAILY Qty: 119 RF: 0 cyclobenzaprine 10 mg tablet 10 mg PO TID PRN (Reason: muscle spasm) Qty: 30 RF: 0 tramadol 50 mg tablet 50 mg PO Q8H PRN (Reason: pain) Qty: 12 RF: 0 Referrals: Physician,Unknown [Primary Care Provider] - 2 days
[2020-08-18] MEDS: Ketorolac Tromethamine 15 MG/ML VIAL IM (05:31)
[2020-08-18] MEDS: Acetaminophen 325 MG TABLET 975 MG PO (05:32)
[2020-08-18 05:38] VITALS: BP 111/63; PULSE 84; RESP 15; TEMP 36.7; O2SAT 98
== END 2020-08-18 05:42 | disposition home or self-care (01) ==
LOC: HO.ED 05:34
PROVIDERS: Emergency Provider Student in an Organized Health Care Education/Training Program
DX: M54.41 Lumbago with sciatica, right side (principal)
CPT/HCPCS: 96372; 99284; J1885

== ENCOUNTER 2020-08-19 00:06 | Emergency (ER) | payer OTHER, SELFPAY ==
[2020-08-19 00:17] VITALS: BP 104/66; PULSE 60; RESP 18; TEMP 36.7; O2SAT 98; BMI 23.6
--- NOTE | 2020-08-19 00:24 | ED_ITS ---
HPI - General Adult General Chief complaint: General Medical Stated complaint: Constipated Time Seen by Provider: 08/19/20 00:23 History of Present Illness HPI narrative: is a 35-year-old male who presents with complaints of increasing constipation for the past couple of days and states his last bowel movement was Wednesday. He denies any associated fevers, chills, nausea, vomiting, urinary pain /burning /frequency and denies any shortness of breath or chest pain /palpitations. Related Data Home Medications Medication Instructions Recorded Confirmed hydroxyzine HCl [Atarax] 100 mg PO NEEDED PRN 08/03/20 08/03/20 Previous Rx's Medication Instructions Recorded hydrocortisone [Anusol-HC] 1 applic [place] BEDTIME PRN #30 g 08/13/20 polyethylene glycol 3350 [Miralax] 17 g PO DAILY #119 g 08/13/20 cyclobenzaprine 10 mg PO TID PRN #30 tab 08/15/20 tramadol 50 mg PO Q8H PRN #12 tab 08/15/20 ketorolac 10 mg PO Q6H PRN 5 Days #20 tab 08/17/20 Allergies Allergy/AdvReac Type Severity Reaction Status Date / Time Penicillins [PCN] Allergy Mild RASH Verified 08/16/20 01:55 silver AdvReac Intermediate rash Verified 08/16/20 01:55 [From TEGADERM AG MESH] Review of Systems Review of Systems: Pertinent positives and negatives as stated in HPI 10 po int review of systems is otherwise negative. [facility] Past Medical History Source: nursing notes reviewed Medical History Foot drop, right foot Schizophrenia Surgical History No pertinent past surgical history Social History Social History Alcohol intake: current Alcohol intake frequency: a few times a week Alcohol type: beer Smoking Status: Current every day smoker Smoked in Last 30 Days: Yes Use of substances other than those prescribed or required for medical reasons: Refusing to respond Substance Use Type: Marijuana Advance Directives: No Physical Exam Vital Signs: Vital Signs: Vital Signs Temp Pulse Resp BP Pulse Ox 08/19/20 00:17 98.1 F 60 18 104/66 98 Body Mass Index 23.6 VITAL SIGNS: Reviewed. GENERAL: Well developed, well nourished, in no acute distress. HEAD: Normocephalic/atraumatic, EYES: PERRLA, EOMI intact without pain, no nystagmus/pallor/icterus noted EARS: Ext canals without abnormality, TMs non-bulging and non-erythematous NOSE: Nares patent bilateral OROPHARYNX: no oral lesions noted, posterior pharynx clear and non-erythematous without noted tonsillar enlargement/erythema/exudates NECK: Supple, no adenopathy LUNGS: Normal breath sounds. No adventitious sounds or accessory muscle use. SpO2<98%> CARDIOVASCULAR: Regular rate and rhythm without noted murmurs, no JVD or lower extremity edema. ABDOMEN: Soft, Mildly tender on palpation without rebound., non-distended with bowel sounds. No rigidity. No guarding. No palpable masses or hernias noted MUSCULOSKELETAL: No tenderness, deformities, or effusions noted on gross inspection. EXTREMITIES: No cyanosis, clubbing or edema. SKIN: Inspection of the skin reveals no rashes, ulcerations, jaundice, pallor, or petechiae. NEUROLOGIC: Alert and oriented x 4. Strength and sensation to light touch were grossly intact x 4. Course Course Course Narrative: This is a 35-year-old male with history and clinical presentation consistent with constipation and able to have a bowel movement upon arrival here to the emergency department. On review of all laboratory and imaging studies there were no acute findings other than moderate volume of stool on the KUB. All results and findings were discussed with patient at bedside and he was recommended to increase his water intake as well as start taking Colace. Medical Decision Making Lab Data Result diagrams: 08/19/20 01:10 08/19/20 01:10 Labs: Lab Results 08/19/20 08/19/20 Range/Units 01:10 01:10 WBC 9.6 (4.8-10.8) X10*3/uL RBC 4.09 L (4.60-5.80) X10*6/uL Hgb 13.5 L (14.0-18.0) g/dl Hct 40.0 L (42-52) % MCV 97.8 (80-98) fL MCH 33.0 (27.0-33.0) pg MCHC 33.8 (31.0-36.0) g/dl RDW 12.1 (11.0-16.0) % Plt Count 198 (160-400) X10*3/uL MPV 9.6 (9.4-12.4) fL Immature Gran % (Auto) 0.1 (0.0-0.4) % Neut % (Auto) 50.9 (45-73) % Lymph % (Auto) 36.1 (20-40) % Harrison % (Auto) 8.7 (2-11) % Eos % (Auto) 3.8 (0-4) % Baso % (Auto) 0.4 (0-2) % Lymph # (Auto) 3.5 (1.2-4.9) X10*3/uL Harrison # (Auto) 0.8 (0.1-1.2) X10*3/uL Eos # (Auto) 0.4 (0.0-0.4) X10*3/uL Baso # (Auto) 0.0 (0.0-0.2) X10*3/uL Abs Immat Gran (auto) 0.01 (0.00-0.03) X10*3/uL Absolute Neuts (auto) 4.9 (2.0-8.3) X10*3/uL Absolute Nucleated RBC 0.000 (0.0-0.012) X10*3/uL Nucleated RBC % (auto) 0.0 (0.0-0.2) /100WBC Sodium 136 (135-145) mmol/L Potassium 4.0 (3.3-5.1) mmol/l Chloride 103 (96-108) mmol/L Carbon Dioxide 25 (22-29) mmol/L Anion Gap 12 (12-20) BUN 20 H (9-16) mg/dL Creatinine 1.01 (0.5-1.4) mg/dL Estim Creat Clear Calc 98.7 Estimated GFR > 60 Random Glucose 92 (60-115) mg/dL Calcium 8.4 (8.4-10.2) mg/dL Total Bilirubin 0.3 (0.0-1.0) mg/dL AST 29 (5-37) U/L ALT 29 (0-40) U/L Alkaline Phosphatase 62 (39-117) U/L Total Protein 6.8 (6.5-8.0) g/dL Albumin 4.3 (3.5-5.0) g/dL Discharge Plan Discharge Clinical Impression: Constipation Qualifiers: Constipation type: other constipation type Qualified Code(s): K59.09 - Other constipation Patient Disposition: Home, Self-Care Instructions: Constipation (ED), High Fiber Diet (ED) Additional Instructions: 1. Increase your fluid intake, especially with water. 2. Recommend Colace, this is available at all drug stores and you should begin taking this as directed on the outside packaging until you began having regular bowel movements. The patient and/or family acknowledge understanding of results (as applicable), diagnosis, treatment plan, need for follow up, and symptoms that should prompt a return to the emergency room. Prescriptions: No Action ketorolac 10 mg tablet 10 mg PO Q6H PRN (Reason: pain) 5 Days Qty: 20 RF: 0 Atarax 100 mg Tablet 100 mg PO NEEDED PRN (Reason: Anxiety) RF: 0 hydrocortisone [Anusol-HC] 2.5 % cream with perineal applicator 1 applic [place] BEDTIME PRN (Reason: pain) Qty: 30 RF: 0 polyethylene glycol 3350 [Miralax] 17 gram/dose powder 17 g PO DAILY Qty: 119 RF: 0 cyclobenzaprine 10 mg tablet 10 mg PO TID PRN (Reason: muscle spasm) Qty: 30 RF: 0 tramadol 50 mg tablet 50 mg PO Q8H PRN (Reason: pain) Qty: 12 RF: 0 Referrals: Physician,Unknown [Primary Care Provider] - 2 days
--- NOTE | 2020-08-19 00:26 | XR_ITS ---
EXAMINATION: XR ABDOMEN KUB CLINICAL INDICATION: Constipation COMPARISON: None TECHNIQUE: AP view of the abdomen. FINDINGS: Bowel gas pattern is nonobstructive. Moderate amount of stool is present. Nonspecific tiny calcification overlies the lateral left sacrum, also present on lumbar spine radiograph of 09/16/2019. Included lung bases appear well aerated. No acute osseous findings are seen. IMPRESSION: Nonobstructive bowel gas pattern with moderate volume of stool.
--- NOTE | 2020-08-19 00:27 | PC.NURSE ---
pt ambulated from main ed lobby to room without incident. pt speaking in clear and full sentences. nad noted. pt immedietly asks for sandwich and something to drink. pt educated that if the doctor allows he can.
--- NOTE | 2020-08-19 00:31 | PC.NURSE ---
pt ambulated to bathroom to have bowel movement
--- NOTE | 2020-08-19 00:51 | PC.NURSE ---
pt remains in bathroom attempting to void, aware
[2020-08-19 01:20] LABS: Basophils Percent Auto 0.4 % (0-2); Eosinophils Absolute Auto 0.4 X10*3/uL (0.0-0.4); Eosinophils Percent Auto 3.8 % (0-4); Hemoglobin 13.5 g/dl (14.0-18.0); Imm Gran Abs Auto 0.01 X10*3/uL (0.00-0.03); Imm Gran Pct Auto 0.1 % (0.0-0.4); Lymphocytes Absolute Auto 3.5 X10*3/uL (1.2-4.9); Lymphocytes Percent Auto 36.1 % (20-40); MANUAL DIFF FLAG NO; Mean Corpuscular HGB Conc 33.8 g/dl (31.0-36.0); Mean Corpuscular Volume 97.8 fL (80-98); Mean Platelet Volume 9.6 fL (9.4-12.4); Monocytes Absolute Auto 0.8 X10*3/uL (0.1-1.2); Monocytes Percent Auto 8.7 % (2-11); Neutrophils Absolute Auto 4.9 X10*3/uL (2.0-8.3); Neutrophils Percent Auto 50.9 % (45-73); Platelet Count 198 X10*3/uL (160-400); Red Blood Count 4.09 X10*6/uL (4.60-5.80); Red Cell Distribution Width 12.1 % (11.0-16.0); White Blood Count 9.6 X10*3/uL (4.8-10.8)
[2020-08-19 01:57] LABS: Alanine Aminotransferase 29 U/L (0-40); Albumin Level 4.3 g/dL (3.5-5.0); Alkaline Phosphatase 62 U/L (39-117); Anion Gap 12 (12-20); Aspartate Amino Transferase 29 U/L (5-37); Bilirubin Total 0.3 mg/dL (0.0-1.0); Blood Urea Nitrogen 20 mg/dL (9-16); Calcium 8.4 mg/dL (8.4-10.2); Carbon Dioxide 25 mmol/L (22-29); Chloride 103 mmol/L (96-108); Creatinine Clr Calc Pharmacy 98.7; Estimated Glomerular Filt Rate > 60; Glucose Random 92 mg/dL (60-115); Sodium 136 mmol/L (135-145); Total Protein 6.8 g/dL (6.5-8.0)
[2020-08-19 02:09] LABS: Lipase 378 U/L (8-78)
== END 2020-08-19 02:13 | disposition home or self-care (01) ==
PROVIDERS: Emergency Provider Student in an Organized Health Care Education/Training Program
DX: K59.09 Other constipation (principal); F17.200 Nicotine dependence, unspecified, uncomplicated; Z71.6 Tobacco abuse counseling; Z79.899 Other long term (current) drug therapy
CPT/HCPCS: 36415; 74018; 80053; 83690; 85025; 99283; 99284

== ENCOUNTER 2020-08-23 07:28 | Emergency (ER) | payer OTHER, SELFPAY ==
--- NOTE | 2020-08-23 07:41 | PC.NURSE ---
PT WALKED BACK TO ROOM 18. ANGRY AND DEMANDING AN EKG NOW. STATES HE HAS A HEART MURMUR AND IS HAVING CHEST PAIN ANDRZEJ ATTEMPTED TO INTRODUCE HERSELF AND EXPLAIN THAT SHE WILL COMPLETE AND EKG.PT STATED SPEED IT UP,SPEED IT UP I HAVE A JOB TO GET TO UNLIKE YOU,I WANT TO BE SEEN NOW SECURITY CALLED FOR SUPPORT, PT LEFT ON HIS OWN ACCORD
== END 2020-08-23 07:45 | disposition left against medical advice (07) ==
PROVIDERS: Emergency Provider Emergency Medicine; PCP Internal Medicine
DX: R07.9 Chest pain, unspecified (principal)
CPT/HCPCS: 99281

== ENCOUNTER 2020-08-23 15:50 | Emergency (ER) | payer OTHER, SELFPAY ==
[2020-08-23 16:16] VITALS: BP 127/66; BP 128/86; PULSE 71; PULSE 77; RESP 16; TEMP 36.2; O2SAT 98; BMI 23.2
--- NOTE | 2020-08-23 16:55 | ED.OVERDOSE ---
HPI - Overdose General Chief Complaint: Overdose Stated Complaint: pcp Time Seen by Provider: 08/23/20 16:54 Source: EMS Mode of arrival: EMS Limitations: other ( PCP use) Related Data Home Medications Medication Instructions Recorded Confirmed hydroxyzine HCl [Atarax] 100 mg PO NEEDED PRN 08/03/20 08/03/20 Previous Rx's Medication Instructions Recorded hydrocortisone [Anusol-HC] 1 applic SD BEDTIME PRN #30 g 08/13/20 polyethylene glycol 3350 [Miralax] 17 g PO DAILY #119 g 08/13/20 cyclobenzaprine 10 mg PO TID PRN #30 tab 08/15/20 tramadol 50 mg PO Q8H PRN #12 tab 08/15/20 ketorolac 10 mg PO Q6H PRN 5 Days #20 tab 08/17/20 Allergies Allergy/AdvReac Type Severity Reaction Status Date / Time Penicillins [PCN] Allergy Mild RASH Verified 08/16/20 01:55 silver AdvReac Intermediate rash Verified 08/16/20 01:55 [From TEGADERM AG MESH] PMFSH Past Medical History Medical History Foot drop, right foot Schizophrenia Surgical History No pertinent past surgical history Social History Social History Alcohol intake: unknown Smoking Status: Current every day smoker Use of substances other than those prescribed or required for medical reasons: Yes Substance Use Type: Marijuana and Other Substance Use Type Other:: pcp Substance Use Frequency: Occasionally Last Used Substance: Just Prior to Admission Any prior treatment program specific to substance use: No Advance Directives: No Advance Directives Information Provided: No Physical Exam Vital Signs: Vital Signs: Vital Signs Temp Pulse Resp BP Pulse Ox 08/23/20 16:16 97.1 F 71 16 128/86 98 Body Mass Index 23.2 Discharge Plan Discharge Prescriptions: No Action ketorolac 10 mg tablet 10 mg PO Q6H PRN (Reason: pain) 5 Days Qty: 20 RF: 0 Atarax 100 mg Tablet 100 mg PO NEEDED PRN (Reason: Anxiety) RF: 0 hydrocortisone [Anusol-HC] 2.5 % cream with perineal applicator 1 applic SD BEDTIME PRN (Reason: pain) Qty: 30 RF: 0 polyethylene glycol 3350 [Miralax] 17 gram/dose powder 17 g PO DAILY Qty: 119 RF: 0 cyclobenzaprine 10 mg tablet 10 mg PO TID PRN (Reason: muscle spasm) Qty: 30 RF: 0 tramadol 50 mg tablet 50 mg PO Q8H PRN (Reason: pain) Qty: 12 RF: 0
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
--- NOTE | 2020-08-23 17:39 | CT_ITS ---
EXAMINATION: CT BRAIN AND CT CERVICAL SPINE WITHOUT CONTRAST. CLINICAL INFORMATION: EtOH/fall. COMPARISON: None TECHNIQUE: 5 mm thin axial and reformatted 2 mm thin sagittal and coronal images of brain were obtained. Subsequently axial 3 mm thin and reformatted 2 minutes thin sagittal and coronal images of cervical spine were obtained. DL 1136 FINDINGS: : There is a right frontal scalp hematoma without any underlying calvarial fracture. There is no acute intra-axial, extra-axial bleed, masses or midline shift. There is no acute infarction in evolution. There is no acute infarct in evolution. The lateral ventricles are symmetrical in size and configuration without enlargement. The paranasal sinuses and mastoid air cells are well-aerated. Cervical spine: There is normal cervical lordosis. The vertebral heights and alignment is normal. The disc heights is maintained. The craniovertebral junction and the C1-C2 alignment is normal. No visible acute fracture or dislocation or subluxation seen. The prevertebral and paravertebral soft tissues are normal. The lung apices are clear. CT/CT head/brain wo con IMPRESSION: No acute intracranial process seen except for right frontal scalp hematoma. No acute fracture or dislocation of cervical spine.
--- NOTE | 2020-08-23 17:39 | CT_ITS ---
EXAMINATION: CT BRAIN AND CT CERVICAL SPINE WITHOUT CONTRAST. CLINICAL INFORMATION: EtOH/fall. COMPARISON: None TECHNIQUE: 5 mm thin axial and reformatted 2 mm thin sagittal and coronal images of brain were obtained. Subsequently axial 3 mm thin and reformatted 2 minutes thin sagittal and coronal images of cervical spine were obtained. DL 1136 FINDINGS: : There is a right frontal scalp hematoma without any underlying calvarial fracture. There is no acute intra-axial, extra-axial bleed, masses or midline shift. There is no acute infarction in evolution. There is no acute infarct in evolution. The lateral ventricles are symmetrical in size and configuration without enlargement. The paranasal sinuses and mastoid air cells are well-aerated. Cervical spine: There is normal cervical lordosis. The vertebral heights and alignment is normal. The disc heights is maintained. The craniovertebral junction and the C1-C2 alignment is normal. No visible acute fracture or dislocation or subluxation seen. The prevertebral and paravertebral soft tissues are normal. The lung apices are clear. CT/CT cervical spine wo con IMPRESSION: No acute intracranial process seen except for right frontal scalp hematoma. No acute fracture or dislocation of cervical spine.
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
[2020-08-23 18:20] LABS: Amphetamine Screen Urine Not Detected (Not Detect); Barbiturates, Urine Not Detected (Not Detect); Benzodiazepines Screen Urine Not Detected (Not Detect); Cannabinoid Screen Urine POSITIVE (Not Detect); Cocaine Screen Urine Not Detected (Not Detect); Opiate Screen Urine Not Detected (Not Detect); Phencyclidine Screen Urine Not Detected (Not Detect)
--- NOTE | 2020-08-23 19:18 | PC.NURSE ---
Patient sleeping, unable to wake up for lab draw and CT scan, respiration +/=/non-labored bilaterally, patient is being observed on 1:1 for safety, patient had fall earlier shift. Will continue to monitor.
[2020-08-23 22:55] LABS: Ethanol 307 mg/dL
--- NOTE | 2020-08-24 00:46 | PC.NURSE ---
Patient demanding d/c/confrontational/argumentative/[id number]. Provider notified, patient continues defy redirection. Will continue to monitor.
[2020-08-24] MEDS: LORazepam 1 MG TABLET 2 MG PO (01:08)
[2020-08-24] MEDS: Acetaminophen 325 MG TABLET 650 MG PO (01:08)
--- NOTE | 2020-08-24 01:20 | PC.NURSE ---
Patient received Ativan 2 mg and Tylenol 650 mg, patient reluctantly took the medication, patient has been threatening staff member, loud/disruptive, non re-directable, will continue to monitor.
--- NOTE | 2020-08-24 01:44 | PC.NURSE ---
Patient is still hyper-verbal, non re-directable, argumentative, accusatory/threatening towards staff member, stated patient will have staff fired for keeping here. Patient currently sitting in his chair at [facility]. Will continue to monitor.
== END 2020-08-24 06:28 | disposition home or self-care (01) ==
PROVIDERS: Nurse Practitioner Primary Care; Emergency Provider Emergency Medicine
DX: F16.20 Hallucinogen dependence, uncomplicated (principal); F10.10 Alcohol abuse, uncomplicated; Y90.8 Blood alcohol level of 240 mg/100 ml or more; F17.200 Nicotine dependence, unspecified, uncomplicated; F20.9 Schizophrenia, unspecified; F12.90 Cannabis use, unspecified, uncomplicated; Z79.899 Other long term (current) drug therapy
CPT/HCPCS: 70450; 72125; 80307; 80320; 99284

== ENCOUNTER 2020-09-01 07:40 | Emergency (ER) | payer OTHER, SELFPAY ==
[2020-09-01 07:54] VITALS: BP 132/92; PULSE 86; RESP 18; TEMP 36.6; O2SAT 98; BMI 22.8
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
== END 2020-09-01 08:37 | disposition home or self-care (01) ==
PROVIDERS: Emergency Provider Emergency Medicine
DX: S70.11XA Contusion of right thigh, initial encounter (principal); M79.604 Pain in right leg; Y29.XXXA Contact with blunt object, undetermined intent, initial encounter; Y93.9 Activity, unspecified; Y92.9 Unspecified place or not applicable; Y99.9 Unspecified external cause status; Z79.899 Other long term (current) drug therapy
CPT/HCPCS: 99283

== ENCOUNTER 2020-09-08 05:18 | Emergency (ER) | payer OTHER, SELFPAY ==
[2020-09-08 05:36] VITALS: BP 126/79; PULSE 67; RESP 16; TEMP 36.9; O2SAT 99; BMI 23.4
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
== END 2020-09-08 06:41 | disposition home or self-care (01) ==
PROVIDERS: Emergency Provider Emergency Medicine Emergency Medical Services
DX: S93.401A Sprain of unspecified ligament of right ankle, initial encounter (principal); M79.604 Pain in right leg; X58.XXXA Exposure to other specified factors, initial encounter; Y93.9 Activity, unspecified; Y92.9 Unspecified place or not applicable; Y99.9 Unspecified external cause status; F17.200 Nicotine dependence, unspecified, uncomplicated; Z71.6 Tobacco abuse counseling; F12.90 Cannabis use, unspecified, uncomplicated; Z79.899 Other long term (current) drug therapy
CPT/HCPCS: 99283

== ENCOUNTER 2020-09-09 21:57 | Emergency (ER) | payer OTHER, SELFPAY ==
[2020-09-09 22:02] VITALS: BP 144/64; PULSE 88; RESP 18; TEMP 37.2; O2SAT 97; BMI 21.9
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
[2020-09-09] MEDS: Acetaminophen 325 MG TABLET 650 MG PO (22:44)
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
== END 2020-09-09 22:50 | disposition home or self-care (01) ==
PROVIDERS: Emergency Provider Emergency Medicine
DX: M25.571 Pain in right ankle and joints of right foot (principal); M54.5 Low back pain; F17.200 Nicotine dependence, unspecified, uncomplicated; Z71.6 Tobacco abuse counseling; F12.90 Cannabis use, unspecified, uncomplicated; Z79.899 Other long term (current) drug therapy
CPT/HCPCS: 99283

== ENCOUNTER 2020-09-17 06:12 | Emergency (ER) | payer OTHER, SELFPAY ==
[2020-09-17 06:26] VITALS: BP 130/84; PULSE 69; RESP 16; TEMP 37.1; O2SAT 100; BMI 48.6
[2020-09-17] MEDS: Ketorolac Tromethamine 15 MG/ML VIAL IM (06:36)
[2020-09-17] MEDS: Cyclobenzaprine HCl 10 MG TABLET PO (06:37)
[2020-09-17] MEDS: Acetaminophen 325 MG TABLET 975 MG PO (06:37)
--- NOTE | 2020-09-17 06:39 | PC.NURSE ---
MD at bedside, pt medicated per EMAR.
--- NOTE | 2020-09-17 06:46 | ED.BACK ---
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 Otherwise, he denies any fevers, chills, numbness/ tingling / weakness into either lower extremity, and denies any urinary or fecal incontinence. Related Data Home Medications Medication Instructions Recorded Confirmed hydroxyzine HCl [Atarax] 100 mg PO NEEDED PRN 08/03/20 08/03/20 Previous Rx's Medication Instructions Recorded hydrocortisone [Anusol-HC] 1 applic [place] BEDTIME PRN #30 g 08/13/20 polyethylene glycol 3350 [Miralax] 17 g PO DAILY #119 g 08/13/20 cyclobenzaprine 10 mg PO TID PRN #30 tab 08/15/20 tramadol 50 mg PO Q8H PRN #12 tab 08/15/20 ketorolac 10 mg PO Q6H PRN 5 Days #20 tab 08/17/20 cane #1 ea 09/01/20 cyclobenzaprine 5 mg PO TID PRN #10 tab 09/01/20 naproxen 500 mg PO BID PRN #14 tab 09/01/20 cyclobenzaprine 5 mg PO TID PRN #5 tab 09/08/20 cyclobenzaprine 10 mg PO BEDTIME PRN #3 tab 09/17/20 Allergies Allergy/AdvReac Type Severity Reaction Status Date / Time Penicillins [PCN] Allergy Mild RASH Verified 09/09/20 22:02 silver AdvReac Intermediate rash Verified 09/09/20 22:02 [From TEGADERM AG MESH] Review of Systems Review of Systems: Pertinent positives and negatives as stated in HPI 10 point review of systems otherwise negative. [facility] Past Medical History Source: nursing notes reviewed Medical History Contusion Foot drop, right foot Schizophrenia Surgical History No pertinent past surgical history Social History Social History Alcohol intake: unknown Smoking Status: Current every day smoker Substance Use Type: Heroin and Marijuana Advance Directives: No Physical Exam Vital Signs: Vital Signs: Last Vital Signs Temp 98.8 F 09/17/20 06:26 Pulse 69 09/17/20 06:26 Resp 16 09/17/20 06:26 BP 130/84 09/17/20 06:26 Pulse Ox 100 09/17/20 06:26 Body Mass Index 48.6 VITAL SIGNS: Reviewed. GENERAL: Well developed, well nourished, in no acute distress. HEAD: Normocephalic/atraumatic, EYES: PERRLA, EOMI intact without pain, no nystagmus/pallor/icterus noted EARS: Ext canals without abnormality, TMs non-bulging and non-erythematous NOSE: Nares patent bilateral OROPHARYNX: no oral lesions noted, posterior pharynx clear and non-erythematous without noted tonsillar enlargement/erythema/exudates NECK: Supple, no adenopathy LUNGS: Normal breath sounds. No adventitious sounds or accessory muscle use. SpO2<100> CARDIOVASCULAR: Regular rate and rhythm without noted murmurs, no JVD or lower extremity edema. ABDOMEN: Soft, non-tender, non-distended with bowel sounds. No rigidity. No guarding. No palpable masses or hernias noted MUSCULOSKELETAL: No tenderness, deformities, or effusions noted on gross inspection. EXTREMITIES: No cyanosis, clubbing or edema. SKIN: Inspection of the skin reveals no rashes, ulcerations, jaundice, pallor, or petechiae. NEUROLOGIC: Alert and oriented x 4. Strength and sensation to light touch were grossly intact x 4. Course Course Course Narrative: This is a 35-year-old male with history and clinical presentation consistent with chronic back pain and inadequate pain control. Patient was provided with combination analgesics and muscle relaxants with good resolution of symptoms on re-evaluation. Patient was discharged to home in stable condition. Discharge Plan Discharge Clinical Impression: Back pain Qualifiers: Back pain location: low back pain Chronicity: chronic Back pain laterality: bilateral Sciatica presence: without sciatica Qualified Code(s): M54.5 - Low back pain Patient Disposition: Home, Self-Care Instructions: Back Pain (ED) Additional Instructions: The patient and/or family acknowledge understanding of results (as applicable), diagnosis, treatment plan, need for follow up, and symptoms that should prompt a return to the emergency room. Prescriptions: New cyclobenzaprine 10 mg tablet 10 mg PO BEDTIME PRN (Reason: muscle spasm) Qty: 3 RF: 0 No Action ketorolac 10 mg tablet 10 mg PO Q6H PRN (Reason: pain) 5 Days Qty: 20 RF: 0 naproxen 500 mg tablet 500 mg PO BID PRN (Reason: pain) Qty: 14 RF: 0 cyclobenzaprine 5 mg tablet 5 mg PO TID PRN (Reason: muscle spasm) Qty: 10 RF: 0 (DME) cane Device See Rx Instructions .ROUTE .MEDSUPPLY Qty: 1 RF: 0 Atarax 100 mg Tablet 100 mg PO NEEDED PRN (Reason: Anxiety) RF: 0 hydrocortisone [Anusol-HC] 2.5 % cream with perineal applicator 1 applic [place] BEDTIME PRN (Reason: pain) Qty: 30 RF: 0 polyethylene glycol 3350 [Miralax] 17 gram/dose powder 17 g PO DAILY Qty: 119 RF: 0 cyclobenzaprine 10 mg tablet 10 mg PO TID PRN (Reason: muscle spasm) Qty: 30 RF: 0 tramadol 50 mg tablet 50 mg PO Q8H PRN (Reason: pain) Qty: 12 RF: 0 cyclobenzaprine 5 mg tablet 5 mg PO TID PRN (Reason: muscle spasm) Qty: 5 RF: 0 Referrals: Physician,Unknown [Primary Care Provider] - 2 days
== END 2020-09-17 07:09 | disposition home or self-care (01) ==
PROVIDERS: Emergency Provider Student in an Organized Health Care Education/Training Program
DX: M54.5 Low back pain (principal); F17.200 Nicotine dependence, unspecified, uncomplicated; F11.90 Opioid use, unspecified, uncomplicated; F12.90 Cannabis use, unspecified, uncomplicated; Z79.899 Other long term (current) drug therapy; Z71.6 Tobacco abuse counseling
CPT/HCPCS: 96372; 99283; 99284; J1885

== ENCOUNTER 2020-09-22 09:05 | Emergency (ER) | payer OTHER, SELFPAY ==
[2020-09-22 09:19] VITALS: PULSE 74; RESP 18; TEMP 36.6; O2SAT 100; BMI 22.4
--- NOTE | 2020-09-22 09:22 | ED.BACK ---
HPI - Back Pain/Injury General Chief Complaint: Back Pain/Injury Stated Complaint: back pain Time Seen by Provider: 09/22/20 09:22 Source: patient Mode of arrival: ambulatory Limitations: no limitations History of Present Illness HPI Narrative: 35-year-old male with history of chronic low back pain Presenting with acute exacerbation Denies any injury Pain is consistent with his ?chronic? pain States he has had this pain for several years now Recently had MRI and in PT being followed by his primary care doctor and referred to orthopedics States he ran out of Flexeril and his controller lock this causing exacerbation and pain No fever, headache, denies IVDA use, denies GI symptoms. MD elicited complaint: back pain Pertinent past history: prior back pain Onset (ago): day(s) Timing: intermittent Severity: moderate Similar Symptoms Previously: Yes Quality: aching Location: lumbar spine Radiation: none Exacerbating factors: movement Relieving factors: immobilization Associated symptoms: denies other symptoms Work related injury: No Related Data Home Medications Medication Instructions Recorded Confirmed hydroxyzine HCl [Atarax] 100 mg PO NEEDED PRN 08/03/20 08/03/20 Previous Rx's Medication Instructions Recorded hydrocortisone [Anusol-HC] 1 applic [place] BEDTIME PRN #30 g 08/13/20 polyethylene glycol 3350 [Miralax] 17 g PO DAILY #119 g 08/13/20 cyclobenzaprine 10 mg PO TID PRN #30 tab 08/15/20 tramadol 50 mg PO Q8H PRN #12 tab 08/15/20 ketorolac 10 mg PO Q6H PRN 5 Days #20 tab 08/17/20 cane #1 ea 09/01/20 cyclobenzaprine 5 mg PO TID PRN #10 tab 09/01/20 naproxen 500 mg PO BID PRN #14 tab 09/01/20 cyclobenzaprine 5 mg PO TID PRN #5 tab 09/08/20 cyclobenzaprine 10 mg PO BEDTIME PRN #3 tab 09/17/20 cyclobenzaprine 10 mg PO TID PRN #20 tab 09/22/20 ketorolac 10 mg PO QID 5 Days #20 tab 09/22/20 Allergies Allergy/AdvReac Type Severity Reaction Status Date / Time Penicillins [PCN] Allergy Mild RASH Verified 09/09/20 22:02 silver AdvReac Intermediate rash Verified 09/09/20 22:02 [From TEGADERM AG MESH] Review of Systems Review of Systems: Constitutional: No Weight loss, No Fever, No Chills, No Night Sweats, No Fatigue, No Malaise ENT/Mouth: No Hearing loss, No Ear Pain, No Nasal Congestion, No Sinus Pain, No Hoarseness, No sore throat, No Rhinorrhea, No Swallowing Difficulty Eyes: No Eye Pain, No Swelling, No Redness, No Foreign Body, No Discharge, No Vision Changes Cardiovascular: No Chest Pain, No SOB, No Dyspnea on Exertion, No Orthopnea, No Edema, No Palpitations Respiratory: No Cough, No Sputum, No Wheezing, No Smoke Exposure, No Dyspnea Gastrointestinal: No Nausea, No Vomiting, No Diarrhea, No Constipation, No abdominal Pain, No Hematochezia, No Melena Genitourinary: no irregular bleeding, No Dysuria, No Urinary Frequency, No Hematuria, No Urinary Incontinence Musculoskeletal: No joint pain, No Myalgias, No Joint Swelling Skin: No Skin Lesions, No rash Neuro: No Weakness, No Numbness, No Paresthesias, No Loss of Consciousness, No Dizziness, No Headache Psych: No Anxiety/Panic, No Depression, No SI/HI/AH/VH, No Social Issues Heme/Lymph: No Bruising, No Bleeding,No Lymphadenopathy Endocrine: No Polyuria, No Polydipsia, No Temperature Intolerance Yes all other systems are reviewed and are negative [facility] Past Medical History Medical History Contusion Foot drop, right foot Schizophrenia Surgical History No pertinent past surgical history Social History Social History Alcohol intake: unknown Smoking Status: Current every day smoker Substance Use Type: Heroin and Marijuana Advance Directives: No Advance Directives Information Provided: Yes Physical Exam Vital Signs: Vital Signs: Last Vital Signs Temp 98 F 09/22/20 09:19 Pulse 74 09/22/20 09:19 Resp 18 09/22/20 09:19 Pulse Ox 100 09/22/20 09:19 Body Mass Index 22.4 Reviewed Const: General: cooperative and healthy appearing; No acute distress or intoxicated appearing Nutritional Appearance: average body habitus Orientation/consciousness: patient oriented x3 HENMT: Head: Yes normal to inspection Ears: hearing grossly normal bilaterally Eyes: General: appearance normal, both eyes and all related structures Visual Ace: normal visual ace by confrontation Neck: Neck: Yes normal visual inspection, No positive Brudzinski's sign, No positive Kernig's sign and No tender Thyroid: Thyroid normal Chest: Chest palpation & inspection: normal inspection of the chest Resp: Effort & Inspection: normal respiratory effort Cardio: Jugular venous distension: no JVD GI: Inspection: Yes normal to inspection Percussion: Yes normal to percussion Auscultation: normal bowel sounds : General: Yes no CVA tenderness Back/Spine/Pelvis: Other: Pain diffusely of the paraspinal muscle. No midline to palpation, step-off. No induration. Negative leg lift. Deep tendon reflexes within normal limits. Pulses within normal limits. Back: no CVA tenderness Skin: General skin exam: no rashes or lesions noted Neuro: General: patient oriented x3 Extrem: General: Yes normal to inspection Course Course Course Narrative: AP of acute on chronic low back pain without red flags. Ambulatory status with gait. Will provide with refill of his Flexeril and ketorolac requesting referral to back surgeon will provide follow-up Dr. Radha Lopez. Agreeable clear return follow-up instructions provided. Stable for discharge Discharge Plan Discharge Clinical Impression: Strain of lumbar region Qualifiers: Encounter type: initial encounter Qualified Code(s): S39.012A - Strain of muscle, fascia and tendon of lower back, initial encounter Patient Disposition: Home, Self-Care Instructions: Back Pain (ED), Lower Back Exercises (ED) Prescriptions: New cyclobenzaprine 10 mg tablet 10 mg PO TID PRN (Reason: muscle spasm) Qty: 20 RF: 0 ketorolac 10 mg tablet 10 mg PO QID 5 Days Qty: 20 RF: 0 No Action ketorolac 10 mg tablet 10 mg PO Q6H PRN (Reason: pain) 5 Days Qty: 20 RF: 0 naproxen 500 mg tablet 500 mg PO BID PRN (Reason: pain) Qty: 14 RF: 0 cyclobenzaprine 5 mg tablet 5 mg PO TID PRN (Reason: muscle spasm) Qty: 10 RF: 0 (DME) cane Device See Rx Instructions .ROUTE .MEDSUPPLY Qty: 1 RF: 0 cyclobenzaprine 10 mg tablet 10 mg PO BEDTIME PRN (Reason: muscle spasm) Qty: 3 RF: 0 Atarax 100 mg Tablet 100 mg PO NEEDED PRN (Reason: Anxiety) RF: 0 hydrocortisone [Anusol-HC] 2.5 % cream with perineal applicator 1 applic [place] BEDTIME PRN (Reason: pain) Qty: 30 RF: 0 polyethylene glycol 3350 [Miralax] 17 gram/dose powder 17 g PO DAILY Qty: 119 RF: 0 cyclobenzaprine 10 mg tablet 10 mg PO TID PRN (Reason: muscle spasm) Qty: 30 RF: 0 tramadol 50 mg tablet 50 mg PO Q8H PRN (Reason: pain) Qty: 12 RF: 0 cyclobenzaprine 5 mg tablet 5 mg PO TID PRN (Reason: muscle spasm) Qty: 5 RF: 0 Referrals: Radha Lopez MD [Physician] - 2 weeks
[2020-09-22] MEDS: Ketorolac Tromethamine 30 MG/ML VIAL IM (09:32)
== END 2020-09-22 09:37 | disposition home or self-care (01) ==
PROVIDERS: Emergency Provider Emergency Medicine
DX: S39.012A Strain of muscle, fascia and tendon of lower back, initial encounter (principal); X58.XXXA Exposure to other specified factors, initial encounter; Y93.9 Activity, unspecified; Y92.9 Unspecified place or not applicable; Y99.9 Unspecified external cause status; Z79.899 Other long term (current) drug therapy; F17.200 Nicotine dependence, unspecified, uncomplicated; Z71.6 Tobacco abuse counseling
CPT/HCPCS: 96372; 99283; J1885

== ENCOUNTER 2020-09-26 10:03 | Emergency (ER) | payer OTHER, SELFPAY ==
[2020-09-26 10:19] VITALS: BP 130/76; PULSE 71; RESP 16; TEMP 36.6; O2SAT 100; BMI 23.6
--- NOTE | 2020-09-26 10:33 | ED.SKABFB ---
HPI - Skin/Abscess/Foreign Bdy General Chief complaint: Skin/Abscess/Foreign Body Stated complaint: wound check Time Seen by Provider: 09/26/20 10:11 Source: patient Mode of arrival: ambulatory Limitations: no limitations History of Present Illness HPI narrative: 35 y/o male presenting with a painful, warm, lump in his left groin. He thinks it is an ingrown hair. He states it has been present for 4 weeks and is worsening. He drained it early on but then it became larger and more painful. He denies recent drainage, no fevers, chills. No hx IVDA. complaint: abscess/boil Onset (ago): week(s) (4) Tetanus up to date: yes Location: genitals (left groin) Severity: mild Quality: aching Pain Consistency: constant Relieving factors: none Exacerbating factors: none Context: other (shaving ) Associated symptoms: denies other symptoms Treatments prior to arrival: none Related Data Home Medications Medication Instructions Recorded Confirmed hydroxyzine HCl [Atarax] 100 mg PO NEEDED PRN 08/03/20 08/03/20 Previous Rx's Medication Instructions Recorded hydrocortisone [Anusol-HC] 1 applic [place] BEDTIME PRN #30 g 08/13/20 polyethylene glycol 3350 [Miralax] 17 g PO DAILY #119 g 08/13/20 cyclobenzaprine 10 mg PO TID PRN #30 tab 08/15/20 tramadol 50 mg PO Q8H PRN #12 tab 08/15/20 ketorolac 10 mg PO Q6H PRN 5 Days #20 tab 08/17/20 cane #1 ea 09/01/20 cyclobenzaprine 5 mg PO TID PRN #10 tab 09/01/20 naproxen 500 mg PO BID PRN #14 tab 09/01/20 cyclobenzaprine 5 mg PO TID PRN #5 tab 09/08/20 cyclobenzaprine 10 mg PO BEDTIME PRN #3 tab 09/17/20 cyclobenzaprine 10 mg PO TID PRN #20 tab 09/22/20 ketorolac 10 mg PO QID 5 Days #20 tab 09/22/20 cephalexin [Keflex] 500 mg PO QID 7 Days #28 cap 09/26/20 doxycycline monohydrate 100 mg PO BID 7 Days #14 cap 09/26/20 Allergies Allergy/AdvReac Type Severity Reaction Status Date / Time Penicillins [PCN] Allergy Mild RASH Verified 09/09/20 22:02 silver AdvReac Intermediate rash Verified 09/09/20 22:02 [From TEGADERM AG MESH] Review of Systems Review of Systems: Constitutional: No Fever, No Chills Cardiovascular: No Chest Pain, No SOB, No Orthopnea, No Edema Respiratory: No Cough, No Sputum, No Wheezing, No dyspnea Gastrointestinal: No Nausea, No Vomiting, No Diarrhea, No abdominal Pain Genitourinary: No Dysuria, No Urinary Frequency, No Hematuria Musculoskeletal: + joint pain (chronic back pain), No Myalgias Skin: + Skin Lesions, No rash Heme/Lymph: No Bruising, No Lymphadenopathy PMFSH Past Medical History Attestation statement: The following information was validated with the patient. Medical History Contusion Foot drop, right foot Schizophrenia Surgical History No pertinent past surgical history Social History Social History Alcohol intake: unknown Smoking Status: Current every day smoker Substance Use Type: Heroin and Marijuana Advance Directives: No Advance Directives Information Provided: Yes Physical Exam Vital Signs: Vital Signs: Last Vital Signs Temp 97.8 F 09/26/20 10:19 Pulse 71 09/26/20 10:19 Resp 16 09/26/20 10:19 BP 130/76 09/26/20 10:19 Pulse Ox 100 09/26/20 10:19 Body Mass Index 23.6 Appearance: Alert. Oriented X3. No acute distress. HEENT: normal inspection Respiratory: No respiratory distress. Skin: Skin warm and dry. Left inguinal region with 2cm palpable tenderness mass with mild fluctuance and erythema Neuro: Oriented X 3. Non-foical Course Course Course Narrative: 35 y/o male presenting with left inguinal asbcess, amenable to drainage. See i&D note. Will give abx upon d/c. Stable for discharge. Procedures Abscess I/D Site: lower extremity (left inner groin ) Side (if applicable): left Local Anesthetic: lidocaine 2% Amount of anesthesia used (mL): 2 Technique: incised with blade Sent for culture/gram staining?: No Irrigation: Yes Packing used?: none Complications: pain MDM - Skin/Abscess/Foreign Bdy Differential Diagnosis Differential diagnosis: Likely abscess of skin or subcutaneous tissue, cellulitis and insect bites Critical Care Time Critical Care Time Critical Care Time: No Discharge Plan Discharge Clinical Impression: Abscess of skin or subcutaneous tissue Qualifiers: Site of cutaneous abscess: trunk Site of cutaneous abscess of trunk: groin Qualified Code(s): L02.214 - Cutaneous abscess of groin Patient Disposition: Home, Self-Care Instructions: Abscess Incision and Drainage (DC) Additional Instructions: Keep area clean and dry. Cover with gauze to absorb any additional drainage. Monitor for worsening infection - signs include increase pain, redness, warmth or drainage of pus. Take both of the antibiotics until they are completely gone. Avoid shaving in that area. Follow up with your primary care doctor next week. Prescriptions: New doxycycline monohydrate 100 mg capsule 100 mg PO BID 7 Days Qty: 14 RF: 0 cephalexin [Keflex] 500 mg capsule 500 mg PO QID 7 Days Qty: 28 RF: 0 No Action ketorolac 10 mg tablet 10 mg PO Q6H PRN (Reason: pain) 5 Days Qty: 20 RF: 0 naproxen 500 mg tablet 500 mg PO BID PRN (Reason: pain) Qty: 14 RF: 0 cyclobenzaprine 5 mg tablet 5 mg PO TID PRN (Reason: muscle spasm) Qty: 10 RF: 0 (DME) cane Device See Rx Instructions .ROUTE .MEDSUPPLY Qty: 1 RF: 0 cyclobenzaprine 10 mg tablet 10 mg PO BEDTIME PRN (Reason: muscle spasm) Qty: 3 RF: 0 Atarax 100 mg Tablet 100 mg PO NEEDED PRN (Reason: Anxiety) RF: 0 hydrocortisone [Anusol-HC] 2.5 % cream with perineal applicator 1 applic [place] BEDTIME PRN (Reason: pain) Qty: 30 RF: 0 polyethylene glycol 3350 [Miralax] 17 gram/dose powder 17 g PO DAILY Qty: 119 RF: 0 cyclobenzaprine 10 mg tablet 10 mg PO TID PRN (Reason: muscle spasm) Qty: 30 RF: 0 tramadol 50 mg tablet 50 mg PO Q8H PRN (Reason: pain) Qty: 12 RF: 0 cyclobenzaprine 5 mg tablet 5 mg PO TID PRN (Reason: muscle spasm) Qty: 5 RF: 0 cyclobenzaprine 10 mg tablet 10 mg PO TID PRN (Reason: muscle spasm) Qty: 20 RF: 0 ketorolac 10 mg tablet 10 mg PO QID 5 Days Qty: 20 RF: 0 Interventions: ED Discharge Assessment Last Done: 09/26/20 11:01 Discharge Date/Time: 09/26/20 11:02
[2020-09-26] MEDS: Lidocaine HCl 2 % MPF 5 ML VIAL INFILTRATI (10:55)
[2020-09-26] MEDS: cephALEXin 500 MG CAPSULE 1000 MG PO (10:56)
== END 2020-09-26 11:02 | disposition home or self-care (01) ==
PROVIDERS: Emergency Provider Emergency Medicine Emergency Medical Services
DX: L02.214 Cutaneous abscess of groin (principal); F11.10 Opioid abuse, uncomplicated; F12.10 Cannabis abuse, uncomplicated; Z71.51 Drug abuse counseling and surveillance of drug abuser; F17.200 Nicotine dependence, unspecified, uncomplicated; Z71.6 Tobacco abuse counseling; Z79.899 Other long term (current) drug therapy
CPT/HCPCS: 10060; 99283; 99284

== ENCOUNTER 2020-09-29 09:46 | Emergency (ER) | payer OTHER, SELFPAY ==
[2020-09-29 09:59] VITALS: BP 133/77; PULSE 82; RESP 14; TEMP 36.6; O2SAT 100; BMI 22.0
--- NOTE | 2020-09-29 10:16 | ED.BACK ---
HPI - Back Pain/Injury General Chief Complaint: Back Pain/Injury Stated Complaint: upper back pain Time Seen by Provider: 09/29/20 10:15 Source: patient Mode of arrival: ambulatory Limitations: no limitations History of Present Illness HPI Narrative: 35 y/o male presenting with acute on chronic back pain. He states he drank alcohol yesterday and thinks he slept in an uncomfortable position last night. His upper back and neck are sore. He reports chronic back pain, usually lower. He denies injury, headache or neck pain. No SOB, chest pain. MD elicited complaint: back pain Pertinent past history: prior back pain Onset (ago): hour(s) (4) Timing: constant Severity: moderate Similar Symptoms Previously: Yes Quality: aching Location: right upper back and left upper back Radiation: none Exacerbating factors: movement Relieving factors: immobilization Context: unknown Associated symptoms: denies other symptoms Work related injury: No Related Data Home Medications Medication Instructions Recorded Confirmed hydroxyzine HCl [Atarax] 100 mg PO NEEDED PRN 08/03/20 08/03/20 Previous Rx's Medication Instructions Recorded hydrocortisone [Anusol-HC] 1 applic [place] BEDTIME PRN #30 g 08/13/20 polyethylene glycol 3350 [Miralax] 17 g PO DAILY #119 g 08/13/20 cyclobenzaprine 10 mg PO TID PRN #30 tab 08/15/20 tramadol 50 mg PO Q8H PRN #12 tab 08/15/20 ketorolac 10 mg PO Q6H PRN 5 Days #20 tab 08/17/20 cane #1 ea 09/01/20 cyclobenzaprine 5 mg PO TID PRN #10 tab 09/01/20 naproxen 500 mg PO BID PRN #14 tab 09/01/20 cyclobenzaprine 5 mg PO TID PRN #5 tab 09/08/20 cyclobenzaprine 10 mg PO BEDTIME PRN #3 tab 09/17/20 cyclobenzaprine 10 mg PO TID PRN #20 tab 09/22/20 ketorolac 10 mg PO QID 5 Days #20 tab 09/22/20 cephalexin [Keflex] 500 mg PO QID 7 Days #28 cap 09/26/20 doxycycline monohydrate 100 mg PO BID 7 Days #14 cap 09/26/20 cyclobenzaprine 10 mg PO TID PRN #8 tab 09/29/20 ibuprofen 600 mg PO Q8H PRN #15 tab 09/29/20 lidocaine [Lidoderm] 1 patch TOPICAL DAILY #15 ea 09/29/20 Allergies Allergy/AdvReac Type Severity Reaction Status Date / Time Penicillins [PCN] Allergy Mild RASH Verified 09/09/20 22:02 silver AdvReac Intermediate rash Verified 09/09/20 22:02 [From TEGADES[employer] AG MESH] Review of Systems Review of Systems: Constitutional: No Fever, No Chills ENT/Mouth: No sore throat, No Rhinorrhea, No Swallowing Difficulty Eyes: No Eye Pain, No Swelling, No Redness Cardiovascular: No Chest Pain, No SOB Respiratory: No Cough, No Sputum Gastrointestinal: No Nausea, No Vomiting, No Diarrhea, No abdominal Pain Genitourinary: No Dysuria, No Urinary Frequency, No Hematuria Musculoskeletal: No joint pain, + Myalgias Skin: No Skin Lesions, No rash Neuro: No Weakness, No Numbness, No Dizziness, No Headache Psych: No Anxiety/Panic, No Depression Heme/Lymph: No Bruising PMFSH Past Medical History Attestation statement: The following information was validated with the patient. Medical History Contusion Foot drop, right foot Schizophrenia Surgical History No pertinent past surgical history Social History Social History Alcohol intake: unknown Smoking Status: Current every day smoker Substance Use Type: Heroin and Marijuana Advance Directives: No Advance Directives Information Provided: No Physical Exam Vital Signs: Vital Signs: Last Vital Signs Temp 97.8 F 09/29/20 09:59 Pulse 82 09/29/20 09:59 Resp 14 09/29/20 09:59 BP 133/77 09/29/20 09:59 Pulse Ox 100 09/29/20 09:59 Body Mass Index 22.0 Appearance: Alert. Oriented X3. No acute distress. HEENT: normal inspection Respiratory: No respiratory distress. Skin: Skin warm and dry. Normal skin color. Nomal skin turgor. No rashes. Back: muscle spasm and soft tissue tenderness of the entire trapezius muscle, no CVA tenderness, no spinal tenderness Extremities: atraumatic, normal ROM, no edema Neuro: Oriented X 3. No motor deficit. No sensory deficit. Course Course Course Narrative: 35 y/o male here with upper back soreness after sleeping in an uncomfortable position. No known injury, no SOB. Will treat for muscle spasm. Discharge Plan Discharge Clinical Impression: Thoracic back pain Qualifiers: Chronicity: acute Back pain laterality: bilateral Qualified Code(s): M54.6 - Pain in thoracic spine Patient Disposition: Home, Self-Care Instructions: Back Pain (ED) Additional Instructions: Use heat to the area several times per day. Take prescribed medications as needed for pain/discomfort. Follow up with your doctor this week. Prescriptions: New lidocaine [Lidoderm] 5 % adhesive patch,medicated 1 patch topical DAILY Qty: 15 RF: 0 ibuprofen 600 mg tablet 600 mg PO Q8H PRN (Reason: pain) Qty: 15 RF: 0 cyclobenzaprine 10 mg tablet 10 mg PO TID PRN (Reason: muscle spasm) Qty: 8 RF: 0 No Action ketorolac 10 mg tablet 10 mg PO Q6H PRN (Reason: pain) 5 Days Qty: 20 RF: 0 naproxen 500 mg tablet 500 mg PO BID PRN (Reason: pain) Qty: 14 RF: 0 cyclobenzaprine 5 mg tablet 5 mg PO TID PRN (Reason: muscle spasm) Qty: 10 RF: 0 (DME) cane Device See Rx Instructions .ROUTE .MEDSUPPLY Qty: 1 RF: 0 cyclobenzaprine 10 mg tablet 10 mg PO BEDTIME PRN (Reason: muscle spasm) Qty: 3 RF: 0 doxycycline monohydrate 100 mg capsule 100 mg PO BID 7 Days Qty: 14 RF: 0 cephalexin [Keflex] 500 mg capsule 500 mg PO QID 7 Days Qty: 28 RF: 0 Atarax 100 mg Tablet 100 mg PO NEEDED PRN (Reason: Anxiety) RF: 0 hydrocortisone [Anusol-HC] 2.5 % cream with perineal applicator 1 applic [place] BEDTIME PRN (Reason: pain) Qty: 30 RF: 0 polyethylene glycol 3350 [Miralax] 17 gram/dose powder 17 g PO DAILY Qty: 119 RF: 0 cyclobenzaprine 10 mg tablet 10 mg PO TID PRN (Reason: muscle spasm) Qty: 30 RF: 0 tramadol 50 mg tablet 50 mg PO Q8H PRN (Reason: pain) Qty: 12 RF: 0 cyclobenzaprine 5 mg tablet 5 mg PO TID PRN (Reason: muscle spasm) Qty: 5 RF: 0 cyclobenzaprine 10 mg tablet 10 mg PO TID PRN (Reason: muscle spasm) Qty: 20 RF: 0 ketorolac 10 mg tablet 10 mg PO QID 5 Days Qty: 20 RF: 0
== END 2020-09-29 10:35 | disposition home or self-care (01) ==
PROVIDERS: Emergency Provider Internal Medicine
DX: M54.6 Pain in thoracic spine (principal); F17.200 Nicotine dependence, unspecified, uncomplicated; F11.90 Opioid use, unspecified, uncomplicated; F12.90 Cannabis use, unspecified, uncomplicated; Z71.6 Tobacco abuse counseling; Z79.899 Other long term (current) drug therapy
CPT/HCPCS: 99283

== ENCOUNTER 2020-10-04 08:06 | Emergency (ER) | payer OTHER, SELFPAY ==
[2020-10-04 08:12] VITALS: BP 109/68; PULSE 93; RESP 18; TEMP 36.3; O2SAT 98; BMI 24.2
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
== END 2020-10-04 09:21 | disposition home or self-care (01) ==
PROVIDERS: Emergency Provider Emergency Medicine
DX: M54.5 Low back pain (principal); M25.562 Pain in left knee; M25.561 Pain in right knee; M54.6 Pain in thoracic spine; F20.9 Schizophrenia, unspecified; F12.90 Cannabis use, unspecified, uncomplicated; F11.90 Opioid use, unspecified, uncomplicated; F17.200 Nicotine dependence, unspecified, uncomplicated; Z71.6 Tobacco abuse counseling; Z79.899 Other long term (current) drug therapy
CPT/HCPCS: 99283

== ENCOUNTER 2020-10-06 06:18 | Emergency (ER) | payer OTHER, SELFPAY ==
[2020-10-06 06:35] VITALS: BP 104/69; PULSE 76; RESP 16; TEMP 36.6; O2SAT 100; BMI 22.8
--- NOTE | 2020-10-06 06:53 | ED.GENADULT ---
HPI - General Adult General Chief complaint: General Medical Stated complaint: multiple complatints Time Seen by Provider: 10/06/20 06:53 Source: patient Mode of arrival: ambulatory Limitations: no limitations History of Present Illness HPI narrative: patient is here schizophrenia with chronic pain problems for last few years, been here 15 times in last 2 months complaining of pain all over body again specially in the back patient ambulatory in the ER without any distress no trauma Related Data Home Medications Medication Instructions Recorded Confirmed hydroxyzine HCl [Atarax] 100 mg PO NEEDED PRN 08/03/20 08/03/20 Previous Rx's Medication Instructions Recorded hydrocortisone [Anusol-HC] 1 applic [place] BEDTIME PRN #30 g 08/13/20 polyethylene glycol 3350 [Miralax] 17 g PO DAILY #119 g 08/13/20 cyclobenzaprine 10 mg PO TID PRN #30 tab 08/15/20 tramadol 50 mg PO Q8H PRN #12 tab 08/15/20 ketorolac 10 mg PO Q6H PRN 5 Days #20 tab 08/17/20 cane #1 ea 09/01/20 cyclobenzaprine 5 mg PO TID PRN #10 tab 09/01/20 naproxen 500 mg PO BID PRN #14 tab 09/01/20 cyclobenzaprine 5 mg PO TID PRN #5 tab 09/08/20 cyclobenzaprine 10 mg PO BEDTIME PRN #3 tab 09/17/20 cyclobenzaprine 10 mg PO TID PRN #20 tab 09/22/20 ketorolac 10 mg PO QID 5 Days #20 tab 09/22/20 cephalexin [Keflex] 500 mg PO QID 7 Days #28 cap 09/26/20 doxycycline monohydrate 100 mg PO BID 7 Days #14 cap 09/26/20 cyclobenzaprine 10 mg PO TID PRN #8 tab 09/29/20 ibuprofen 600 mg PO Q8H PRN #15 tab 09/29/20 lidocaine [Lidoderm] 1 patch TOPICAL DAILY #15 ea 09/29/20 acetaminophen [Tylenol Extra 500 mg PO Q6H PRN #20 tab 10/04/20 Strength] lidocaine [Lidoderm] 1 patch TOPICAL DAILY PRN #30 ea 10/04/20 MDD remove after 12 hours methocarbamol [Robaxin-750] 750 mg PO Q8H PRN #10 tab 10/04/20 naproxen 500 mg PO BID PRN 10 Days #20 tab 10/04/20 Allergies Allergy/AdvReac Type Severity Reaction Status Date / Time Penicillins [PCN] Allergy Mild RASH Verified 09/09/20 22:02 silver AdvReac Intermediate rash Verified 09/09/20 22:02 [From TEGADERM AG MESH] Review of Systems Review of Systems: Yes all other systems are reviewed and are negative [facility] Past Medical History Medical History Contusion Foot drop, right foot Schizophrenia Surgical History No pertinent past surgical history Social History Social History Alcohol intake: never Smoking Status: Current every day smoker Substance Use Type: Heroin and Marijuana Advance Directives: No Physical Exam Vital Signs: Vital Signs: Last Vital Signs Temp 97.8 F 10/06/20 06:35 Pulse 76 10/06/20 06:35 Resp 16 10/06/20 06:35 BP 104/69 10/06/20 06:35 Pulse Ox 100 10/06/20 06:35 Body Mass Index 22.8 Appearance: Alert. Oriented X3. No acute distress. Eyes: Pupils equal, round and reactive to light. ENT: Pharynx normal. Neck: Normal inspection. Neck supple. CVS: Normal heart rate and rhythm. Pulses normal. Respiratory: No respiratory distress. Breath sounds normal. Abdomen: Soft and nontender. back: no focal spinal tenderness diffuse muscle tenderness is more subjective than objective good range of movements no neuro deficit Skin: Skin warm and dry. Normal skin color. Normal skin turgor. Extremities: No lower extremity edema. Good range of movement Neuro: Oriented X 3. No motor deficit. No sensory deficit. Medical Decision Making MDM Narrative Medical decision making narrative: patient with chronic muscular pain more related to anxiety and schizophrenia done any focal exam patient already has pain medicine at home patient advised to do exercise and yoga at home Discharge Plan Discharge Clinical Impression: Musculoskeletal back pain Patient Disposition: Home, Self-Care Instructions: Musculoskeletal Pain (ED) Additional Instructions: exercise and drink plenty of fluids Prescriptions: No Action ketorolac 10 mg tablet 10 mg PO Q6H PRN (Reason: pain) 5 Days Qty: 20 RF: 0 naproxen 500 mg tablet 500 mg PO BID PRN (Reason: pain) Qty: 14 RF: 0 cyclobenzaprine 5 mg tablet 5 mg PO TID PRN (Reason: muscle spasm) Qty: 10 RF: 0 (DME) cane Device See Rx Instructions .ROUTE .MEDSUPPLY Qty: 1 RF: 0 cyclobenzaprine 10 mg tablet 10 mg PO BEDTIME PRN (Reason: muscle spasm) Qty: 3 RF: 0 doxycycline monohydrate 100 mg capsule 100 mg PO BID 7 Days Qty: 14 RF: 0 cephalexin [Keflex] 500 mg capsule 500 mg PO QID 7 Days Qty: 28 RF: 0 lidocaine [Lidoderm] 5 % adhesive patch,medicated 1 patch topical DAILY Qty: 15 RF: 0 ibuprofen 600 mg tablet 600 mg PO Q8H PRN (Reason: pain) Qty: 15 RF: 0 cyclobenzaprine 10 mg tablet 10 mg PO TID PRN (Reason: muscle spasm) Qty: 8 RF: 0 Atarax 100 mg Tablet 100 mg PO NEEDED PRN (Reason: Anxiety) RF: 0 hydrocortisone [Anusol-HC] 2.5 % cream with perineal applicator 1 applic [place] BEDTIME PRN (Reason: pain) Qty: 30 RF: 0 polyethylene glycol 3350 [Miralax] 17 gram/dose powder 17 g PO DAILY Qty: 119 RF: 0 cyclobenzaprine 10 mg tablet 10 mg PO TID PRN (Reason: muscle spasm) Qty: 30 RF: 0 tramadol 50 mg tablet 50 mg PO Q8H PRN (Reason: pain) Qty: 12 RF: 0 cyclobenzaprine 5 mg tablet 5 mg PO TID PRN (Reason: muscle spasm) Qty: 5 RF: 0 cyclobenzaprine 10 mg tablet 10 mg PO TID PRN (Reason: muscle spasm) Qty: 20 RF: 0 ketorolac 10 mg tablet 10 mg PO QID 5 Days Qty: 20 RF: 0 methocarbamol [Robaxin-750] 750 mg tablet 750 mg PO Q8H PRN (Reason: pain, severe) Qty: 10 RF: 0 acetaminophen [Tylenol Extra Strength] 500 mg tablet 500 mg PO Q6H PRN (Reason: pain or fever) Qty: 20 RF: 0 lidocaine [Lidoderm] 5 % adhesive patch,medicated 1 patch topical DAILY MDD remove after 12 hours PRN (Reason: pain) Qty: 30 RF: 0 naproxen 500 mg tablet 500 mg PO BID PRN (Reason: pain) 10 Days Qty: 20 RF: 0
== END 2020-10-06 07:30 | disposition home or self-care (01) ==
PROVIDERS: Emergency Provider Internal Medicine
DX: M54.5 Low back pain (principal); F20.9 Schizophrenia, unspecified; F11.90 Opioid use, unspecified, uncomplicated; F12.90 Cannabis use, unspecified, uncomplicated; F17.200 Nicotine dependence, unspecified, uncomplicated; Z71.6 Tobacco abuse counseling; Z79.899 Other long term (current) drug therapy
CPT/HCPCS: 99283

== ENCOUNTER 2020-10-10 08:19 | Emergency (ER) | payer OTHER, SELFPAY ==
[2020-10-10 08:36] VITALS: BP 120/37; PULSE 98; RESP 18; TEMP 36.8; O2SAT 98; BMI 23.4
--- NOTE | 2020-10-10 08:53 | ED.DENTAL ---
HPI - Dental/Oral General Chief complaint: Dental/Oral Stated complaint: lump in mouth Time Seen by Provider: 10/10/20 08:42 Source: patient Mode of arrival: ambulatory History of Present Illness HPI Narrative: 35-year-old male With past medical history of schizophrenia, right footdrop, chronic back pain, presenting to ED complaining he bit right cheek, area formed a blister, and blister popped last night. Reports continued pain to area. Concerned it is infected. Denies sore throat, oral swelling, ear pain, fever, chills, difficulty swallowing Related Data Home Medications Medication Instructions Recorded Confirmed hydroxyzine HCl [Atarax] 100 mg PO NEEDED PRN 08/03/20 08/03/20 Previous Rx's Medication Instructions Recorded hydrocortisone [Anusol-HC] 1 applic [place] BEDTIME PRN #30 g 08/13/20 polyethylene glycol 3350 [Miralax] 17 g PO DAILY #119 g 08/13/20 cyclobenzaprine 10 mg PO TID PRN #30 tab 08/15/20 tramadol 50 mg PO Q8H PRN #12 tab 08/15/20 ketorolac 10 mg PO Q6H PRN 5 Days #20 tab 08/17/20 cane #1 ea 09/01/20 cyclobenzaprine 5 mg PO TID PRN #10 tab 09/01/20 naproxen 500 mg PO BID PRN #14 tab 09/01/20 cyclobenzaprine 5 mg PO TID PRN #5 tab 09/08/20 cyclobenzaprine 10 mg PO BEDTIME PRN #3 tab 09/17/20 cyclobenzaprine 10 mg PO TID PRN #20 tab 09/22/20 ketorolac 10 mg PO QID 5 Days #20 tab 09/22/20 cephalexin [Keflex] 500 mg PO QID 7 Days #28 cap 09/26/20 doxycycline monohydrate 100 mg PO BID 7 Days #14 cap 09/26/20 cyclobenzaprine 10 mg PO TID PRN #8 tab 09/29/20 ibuprofen 600 mg PO Q8H PRN #15 tab 09/29/20 lidocaine [Lidoderm] 1 patch TOPICAL DAILY #15 ea 09/29/20 acetaminophen [Tylenol Extra 500 mg PO Q6H PRN #20 tab 10/04/20 Strength] lidocaine [Lidoderm] 1 patch TOPICAL DAILY PRN #30 ea 10/04/20 MDD remove after 12 hours methocarbamol [Robaxin-750] 750 mg PO Q8H PRN #10 tab 10/04/20 naproxen 500 mg PO BID PRN 10 Days #20 tab 10/04/20 Allergies Allergy/AdvReac Type Severity Reaction Status Date / Time Penicillins [PCN] Allergy Mild RASH Verified 09/09/20 22:02 silver AdvReac Intermediate rash Verified 09/09/20 22:02 [From [employer] [facility]] Review of Systems Review of Systems: Constitutional: No Weight loss, No Fever, No Chills ENT/Mouth: No Ear Pain, No Sinus Pain, No Hoarseness, No sore throat, No Swallowing Difficulty, +R cheek pain Cardiovascular: No Chest Pain, No SOB Respiratory: No Cough, No Sputum, No Wheezing Gastrointestinal: No Nausea, No Vomiting, No Diarrhea, No Constipation, No Abdominal pain Skin: No Skin Lesions, No rash Yes all other systems are reviewed and are negative FOR[facility]LY [facility] Past Medical History Attestation statement: The following information was validated with the patient. Medical History Contusion Foot drop, right foot Schizophrenia Surgical History No pertinent past surgical history Social History Social History Alcohol intake: never Smoking Status: Current every day smoker Substance Use Type: Heroin and Marijuana Advance Directives: No Advance Directives Information Provided: Yes Physical Exam Vital Signs: Vital Signs: Last Vital Signs Temp 98.3 F 10/10/20 08:36 Pulse 98 10/10/20 08:36 Resp 18 10/10/20 08:36 BP 120/37 L 10/10/20 08:36 Pulse Ox 98 10/10/20 08:36 Body Mass Index 23.4 Const: General: cooperative and healthy appearing Orientation/consciousness: patient oriented x3 Limitations: no limitations HENMT: Other: +small bite michael noted to right internal cheek. No surrounding erythema, fluctuance, induration or cellulitis Head: Yes normal to inspection Ears: hearing grossly normal bilaterally and TM's normal bilaterally General nose exam: Normal external nose present Face and sinus: Yes normal facial exam Mouth: no drooling Throat: Yes posterior oropharynx normal, Yes uvula midline, No peritonsillar mass and No uvular edema Eyes: General: appearance normal, both eyes and all related structures EOM: EOMs intact bilaterally Neck: Neck: Yes normal visual inspection Resp: Effort & Inspection: normal respiratory effort and no stridor Cardio: Rate: regular rate Skin: Rashes: no rashes Wounds: no wounds Neuro: General: patient oriented x3 Gait exam (Neuro): Normal gait present Extrem: General: Yes normal to inspection MDM - Dental/Oral MDM Narrative Medical decision making narrative: R cheek with bite michael/popped possible blister site noted. No active infection, no intraoral or facial swelling Discharge Plan Discharge Clinical Impression: Aphthous ulcer Patient Disposition: Home, Self-Care Instructions: Canker Sores (ED) Additional Instructions: Practice warm saltwater rinses at home, you may also suck on ice cubes, take Tylenol Motrin for pain Follow-up with a dentist if area gets worse or swollen or you have fever return to the ED Prescriptions: No Action ketorolac 10 mg tablet 10 mg PO Q6H PRN (Reason: pain) 5 Days Qty: 20 RF: 0 naproxen 500 mg tablet 500 mg PO BID PRN (Reason: pain) Qty: 14 RF: 0 cyclobenzaprine 5 mg tablet 5 mg PO TID PRN (Reason: muscle spasm) Qty: 10 RF: 0 (DME) cane Device See Rx Instructions .ROUTE .MEDSUPPLY Qty: 1 RF: 0 cyclobenzaprine 10 mg tablet 10 mg PO BEDTIME PRN (Reason: muscle spasm) Qty: 3 RF: 0 doxycycline monohydrate 100 mg capsule 100 mg PO BID 7 Days Qty: 14 RF: 0 cephalexin [Keflex] 500 mg capsule 500 mg PO QID 7 Days Qty: 28 RF: 0 lidocaine [Lidoderm] 5 % adhesive patch,medicated 1 patch topical DAILY Qty: 15 RF: 0 ibuprofen 600 mg tablet 600 mg PO Q8H PRN (Reason: pain) Qty: 15 RF: 0 cyclobenzaprine 10 mg tablet 10 mg PO TID PRN (Reason: muscle spasm) Qty: 8 RF: 0 Atarax 100 mg Tablet 100 mg PO NEEDED PRN (Reason: Anxiety) RF: 0 hydrocortisone [Anusol-HC] 2.5 % cream with perineal applicator 1 applic WI BEDTIME PRN (Reason: pain) Qty: 30 RF: 0 polyethylene glycol 3350 [Miralax] 17 gram/dose powder 17 g PO DAILY Qty: 119 RF: 0 cyclobenzaprine 10 mg tablet 10 mg PO TID PRN (Reason: muscle spasm) Qty: 30 RF: 0 tramadol 50 mg tablet 50 mg PO Q8H PRN (Reason: pain) Qty: 12 RF: 0 cyclobenzaprine 5 mg tablet 5 mg PO TID PRN (Reason: muscle spasm) Qty: 5 RF: 0 cyclobenzaprine 10 mg tablet 10 mg PO TID PRN (Reason: muscle spasm) Qty: 20 RF: 0 ketorolac 10 mg tablet 10 mg PO QID 5 Days Qty: 20 RF: 0 methocarbamol [Robaxin-750] 750 mg tablet 750 mg PO Q8H PRN (Reason: pain, severe) Qty: 10 RF: 0 acetaminophen [Tylenol Extra Strength] 500 mg tablet 500 mg PO Q6H PRN (Reason: pain or fever) Qty: 20 RF: 0 lidocaine [Lidoderm] 5 % adhesive patch,medicated 1 patch topical DAILY MDD remove after 12 hours PRN (Reason: pain) Qty: 30 RF: 0 naproxen 500 mg tablet 500 mg PO BID PRN (Reason: pain) 10 Days Qty: 20 RF: 0 Referrals: Jonathan Aquino DMD [Dentist] - 2 days Dana Wren DMD [Dentist] - 2 days Tyler Reynolds DDS [Physician] - 2 days
== END 2020-10-10 09:09 | disposition home or self-care (01) ==
PROVIDERS: Emergency Provider Emergency Medicine
DX: K12.0 Recurrent oral aphthae (principal); F17.200 Nicotine dependence, unspecified, uncomplicated
CPT/HCPCS: 99283

== ENCOUNTER 2020-10-30 09:05 | Emergency (ER) | payer OTHER, SELFPAY ==
[2020-10-30 09:14] VITALS: BP 118/65; PULSE 86; RESP 17; TEMP 36.7; O2SAT 99; BMI 22.8
--- NOTE | 2020-10-30 09:26 | ED.BACK ---
HPI - Back Pain/Injury General Chief Complaint: Back Pain/Injury Stated Complaint: back pain Time Seen by Provider: 10/30/20 09:26 History of Present Illness HPI Narrative: Patient is a 35-year-old male with a history of schizophrenia presents today with having back pain mainly over the right side. Paraspinal area. Worse with movement. The pain is sharp. Patient denies any heavy lifting. Denies any trauma. Denies any IV drug use. Denies any bowel urinary incontinence. Denies any focal weakness. The pain is worse with movement. Rates it a /10. Denies any difficulty ambulating. Related Data Home Medications Medication Instructions Recorded Confirmed hydroxyzine HCl [Atarax] 100 mg PO NEEDED PRN 08/03/20 08/03/20 Previous Rx's Medication Instructions Recorded hydrocortisone [Anusol-HC] 1 applic [place] BEDTIME PRN #30 g 08/13/20 polyethylene glycol 3350 [Miralax] 17 g PO DAILY #119 g 08/13/20 cyclobenzaprine 10 mg PO TID PRN #30 tab 08/15/20 tramadol 50 mg PO Q8H PRN #12 tab 08/15/20 ketorolac 10 mg PO Q6H PRN 5 Days #20 tab 08/17/20 cane #1 ea 09/01/20 cyclobenzaprine 5 mg PO TID PRN #10 tab 09/01/20 naproxen 500 mg PO BID PRN #14 tab 09/01/20 cyclobenzaprine 5 mg PO TID PRN #5 tab 09/08/20 cyclobenzaprine 10 mg PO BEDTIME PRN #3 tab 09/17/20 cyclobenzaprine 10 mg PO TID PRN #20 tab 09/22/20 ketorolac 10 mg PO QID 5 Days #20 tab 09/22/20 cephalexin [Keflex] 500 mg PO QID 7 Days #28 cap 09/26/20 doxycycline monohydrate 100 mg PO BID 7 Days #14 cap 09/26/20 cyclobenzaprine 10 mg PO TID PRN #8 tab 09/29/20 ibuprofen 600 mg PO Q8H PRN #15 tab 09/29/20 lidocaine [Lidoderm] 1 patch TOPICAL DAILY #15 ea 09/29/20 acetaminophen [Tylenol Extra 500 mg PO Q6H PRN #20 tab 10/04/20 Strength] lidocaine [Lidoderm] 1 patch TOPICAL DAILY PRN #30 ea 10/04/20 MDD remove after 12 hours methocarbamol [Robaxin-750] 750 mg PO Q8H PRN #10 tab 10/04/20 naproxen 500 mg PO BID PRN 10 Days #20 tab 10/04/20 ibuprofen 400 mg PO Q6H PRN #20 tab 10/30/20 lidocaine [Lidoderm] 1 patch TOPICAL DAILY PRN #1 ea 10/30/20 Allergies Allergy/AdvReac Type Severity Reaction Status Date / Time Penicillins [PCN] Allergy Mild RASH Verified 10/30/20 09:16 silver AdvReac Intermediate rash Verified 10/30/20 09:16 [From [facility]] Review of Systems Review of Systems: Constitutional: No Weight loss, No Fever, No Chills, No Night Sweats, No Fatigue, No Malaise ENT/Mouth: No Hearing loss, No Ear Pain, No Nasal Congestion, No Sinus Pain, No Hoarseness, No sore throat, No Rhinorrhea, No Swallowing Difficulty Eyes: No Eye Pain, No Swelling, No Redness, No Foreign Body, No Discharge, No Vision Changes Cardiovascular: No Chest Pain, No SOB, No Dyspnea on Exertion, No Orthopnea, No Edema, No Palpitations Respiratory: No Cough, No Sputum, No Wheezing, No Smoke Exposure, No Dyspnea Gastrointestinal: No Nausea, No Vomiting, No Diarrhea, No Constipation, No abdominal Pain, No Hematochezia, No Melena Genitourinary: no irregular bleeding, No Dysuria, No Urinary Frequency, No Hematuria, No Urinary Incontinence, No Urgency, No Flank Pain, No Urinary Flow Changes, No Hesitancy Musculoskeletal: No joint pain, No Myalgias, No Joint Swelling Skin: No Skin Lesions, No rash Neuro: No Weakness, No Numbness, No Paresthesias, No Loss of Consciousness, No Dizziness, No Headache Psych: No Anxiety/Panic, No Depression, No SI/HI/AH/VH, No Social Issues, Heme/Lymph: No Bruising, No Bleeding,No Lymphadenopathy Endocrine: No Polyuria, No Polydipsia, No Temperature Intolerance PMFSH Past Medical History Attestation statement: The following information was validated with the patient. Medical History Contusion Foot drop, right foot Schizophrenia Surgical History No pertinent past surgical history Social History Social History Alcohol intake: never Smoking Status: Current every day smoker Substance Use Type: Heroin and Marijuana Advance Directives: No Advance Directives Information Provided: Yes Physical Exam Vital Signs: Vital Signs: Last Vital Signs Temp 98.0 F 10/30/20 09:14 Pulse 86 10/30/20 09:14 Resp 17 10/30/20 09:14 BP 118/65 10/30/20 09:14 Pulse Ox 99 10/30/20 09:14 Body Mass Index 22.8 Appearance: Alert. Oriented X3. No acute distress. Eyes: Pupils equal, round and reactive to light. ENT: Pharynx normal. Neck: Normal inspection. Neck supple. No lymph nodes noted. No crepitus CVS: Normal heart rate and rhythm. Pulses normal. Normal S1 and S2 Respiratory: No respiratory distress. Breath sounds normal. No Wheezing. No rales Abdomen: Soft and nontender. No rigidity. No distention. good BS x4 Skin: Skin warm and dry. Normal skin color. Normal skin turgor. Extremities: No lower extremity edema. Neurovascular intact to all extremities. No Lacerations. No Rash Neuro: Oriented X 3. No motor deficit. No sensory deficit. Moving all extermities. No slurred speech MDM - Back Pain/Injury MDM Narrative Medical decision making narrative: No bowel urinary incontinence. No focal weakness. Pain is localized to the lower back. In the paraspinal area. There is no areas of point tenderness to suggest spinal abscess. Patient has no history of IV use. In stable condition with discharge home. No trauma. Differential Diagnosis Differential diagnosis: Likely lumbar radiculopathy, sciatica, strain of lumbar region, renal colic and pyelonephritis Medical Records Attestation: I reviewed the patient's medical records. Lab Data Attestation: I reviewed the patient's lab results. Discharge Plan Discharge Clinical Impression: Strain of lumbar region Patient Disposition: Home, Self-Care Instructions: Acute Low Back Pain (ED) Prescriptions: New lidocaine [Lidoderm] 5 % adhesive patch,medicated 1 patch topical DAILY PRN (Reason: pain) Qty: 1 RF: 0 ibuprofen 400 mg tablet 400 mg PO Q6H PRN (Reason: pain) Qty: 20 RF: 0 No Action ketorolac 10 mg tablet 10 mg PO Q6H PRN (Reason: pain) 5 Days Qty: 20 RF: 0 naproxen 500 mg tablet 500 mg PO BID PRN (Reason: pain) Qty: 14 RF: 0 cyclobenzaprine 5 mg tablet 5 mg PO TID PRN (Reason: muscle spasm) Qty: 10 RF: 0 (DME) cane Device See Rx Instructions .ROUTE .MEDSUPPLY Qty: 1 RF: 0 cyclobenzaprine 10 mg tablet 10 mg PO BEDTIME PRN (Reason: muscle spasm) Qty: 3 RF: 0 doxycycline monohydrate 100 mg capsule 100 mg PO BID 7 Days Qty: 14 RF: 0 cephalexin [Keflex] 500 mg capsule 500 mg PO QID 7 Days Qty: 28 RF: 0 lidocaine [Lidoderm] 5 % adhesive patch,medicated 1 patch topical DAILY Qty: 15 RF: 0 ibuprofen 600 mg tablet 600 mg PO Q8H PRN (Reason: pain) Qty: 15 RF: 0 cyclobenzaprine 10 mg tablet 10 mg PO TID PRN (Reason: muscle spasm) Qty: 8 RF: 0 Atarax 100 mg Tablet 100 mg PO NEEDED PRN (Reason: Anxiety) RF: 0 hydrocortisone [Anusol-HC] 2.5 % cream with perineal applicator 1 applic MO BEDTIME PRN (Reason: pain) Qty: 30 RF: 0 polyethylene glycol 3350 [Miralax] 17 gram/dose powder 17 g PO DAILY Qty: 119 RF: 0 cyclobenzaprine 10 mg tablet 10 mg PO TID PRN (Reason: muscle spasm) Qty: 30 RF: 0 tramadol 50 mg tablet 50 mg PO Q8H PRN (Reason: pain) Qty: 12 RF: 0 cyclobenzaprine 5 mg tablet 5 mg PO TID PRN (Reason: muscle spasm) Qty: 5 RF: 0 cyclobenzaprine 10 mg tablet 10 mg PO TID PRN (Reason: muscle spasm) Qty: 20 RF: 0 ketorolac 10 mg tablet 10 mg PO QID 5 Days Qty: 20 RF: 0 methocarbamol [Robaxin-750] 750 mg tablet 750 mg PO Q8H PRN (Reason: pain, severe) Qty: 10 RF: 0 acetaminophen [Tylenol Extra Strength] 500 mg tablet 500 mg PO Q6H PRN (Reason: pain or fever) Qty: 20 RF: 0 lidocaine [Lidoderm] 5 % adhesive patch,medicated 1 patch topical DAILY MDD remove after 12 hours PRN (Reason: pain) Qty: 30 RF: 0 naproxen 500 mg tablet 500 mg PO BID PRN (Reason: pain) 10 Days Qty: 20 RF: 0 Referrals: Physician,Unknown [Primary Care Provider] - 2 days
== END 2020-10-30 09:38 | disposition home or self-care (01) ==
PROVIDERS: Emergency Provider Emergency Medicine Emergency Medical Services
DX: S39.012A Strain of muscle, fascia and tendon of lower back, initial encounter (principal); X58.XXXA Exposure to other specified factors, initial encounter; Y93.9 Activity, unspecified; Y92.9 Unspecified place or not applicable; Y99.9 Unspecified external cause status; F17.200 Nicotine dependence, unspecified, uncomplicated
CPT/HCPCS: 99283

== ENCOUNTER 2020-11-04 05:03 | Emergency (ER) | payer OTHER, SELFPAY ==
[2020-11-04 05:40] VITALS: BP 111/67; PULSE 69; RESP 18; O2SAT 100; BMI 24.3
--- NOTE | 2020-11-04 05:42 | ED_ITS ---
HPI - Abdominal Pain General Chief Complaint: Abdominal Pain Stated Complaint: ABD PAIN Time Seen by Provider: 11/04/20 05:42 Source: patient Mode of arrival: ambulatory Limitations: no limitations History of Present Illness HPI narrative: History of anxiety schizophrenia been here multiple times for multiple complaints comes here now for epigastric pain and vomiting 2 times earlier today no diarrhea feeling much better now, feels very anxious and he does get similar complaints when he gets anxiety no black stool no abdominal distention Related Data Home Medications Medication Instructions Recorded Confirmed hydroxyzine HCl [Atarax] 100 mg PO NEEDED PRN 08/03/20 08/03/20 Previous Rx's Medication Instructions Recorded hydrocortisone [Anusol-HC] 1 applic [place] BEDTIME PRN #30 g 08/13/20 polyethylene glycol 3350 [Miralax] 17 g PO DAILY #119 g 08/13/20 cyclobenzaprine 10 mg PO TID PRN #30 tab 08/15/20 tramadol 50 mg PO Q8H PRN #12 tab 08/15/20 ketorolac 10 mg PO Q6H PRN 5 Days #20 tab 08/17/20 cane #1 ea 09/01/20 cyclobenzaprine 5 mg PO TID PRN #10 tab 09/01/20 naproxen 500 mg PO BID PRN #14 tab 09/01/20 cyclobenzaprine 5 mg PO TID PRN #5 tab 09/08/20 cyclobenzaprine 10 mg PO BEDTIME PRN #3 tab 09/17/20 cyclobenzaprine 10 mg PO TID PRN #20 tab 09/22/20 ketorolac 10 mg PO QID 5 Days #20 tab 09/22/20 cephalexin [Keflex] 500 mg PO QID 7 Days #28 cap 09/26/20 doxycycline monohydrate 100 mg PO BID 7 Days #14 cap 09/26/20 cyclobenzaprine 10 mg PO TID PRN #8 tab 09/29/20 ibuprofen 600 mg PO Q8H PRN #15 tab 09/29/20 lidocaine [Lidoderm] 1 patch TOPICAL DAILY #15 ea 09/29/20 acetaminophen [Tylenol Extra 500 mg PO Q6H PRN #20 tab 10/04/20 Strength] lidocaine [Lidoderm] 1 patch TOPICAL DAILY PRN #30 ea 10/04/20 MDD remove after 12 hours methocarbamol [Robaxin-750] 750 mg PO Q8H PRN #10 tab 10/04/20 naproxen 500 mg PO BID PRN 10 Days #20 tab 10/04/20 ibuprofen 400 mg PO Q6H PRN #20 tab 10/30/20 lidocaine [Lidoderm] 1 patch TOPICAL DAILY PRN #1 ea 10/30/20 omeprazole 40 mg PO DAILY #20 cap 11/04/20 sucralfate [Carafate] 1 g PO BID #30 tab 11/04/20 Allergies Allergy/AdvReac Type Severity Reaction Status Date / Time Penicillins [PCN] Allergy Mild RASH Verified 10/30/20 09:16 silver AdvReac Intermediate rash Verified 10/30/20 09:16 [From [employer] MESH] Review of Systems Review of Systems Constitutional : No Weight loss, No Fever, No Chills ENT/Mouth : No sore throat, No Rhinorrhea Eyes: No Eye Pain, No Swelling Cardiovascular : No Chest Pain, no palpitations Respiratory : No Cough, No Sputum, no shortness of breath Gastrointestinal : + Nausea, +Vomiting, No Diarrhea, +abdominal Pain, no black stools Genitourinary : No Dysuria, No Urinary Frequency Musculoskeletal : No joint pain, No Myalgias, No Joint Swelling Skin : No Skin Lesions, No rash Neuro : No Weakness, No Numbness, No Dizziness, No Headache Psych : + Anxiety - Panic, No Depression Heme/Lymph: No Bruising, No Lymphadenopathy Endocrine : No Polyuria, No Polydipsia All other systems reviewed and are negative Physical Exam Vital Signs: Vital Signs: Last Vital Signs Pulse 69 11/04/20 05:40 Resp 18 11/04/20 05:40 BP 111/67 11/04/20 05:40 Pulse Ox 100 11/04/20 05:40 Body Mass Index 24.3 Appearance: Alert. Oriented X3. No acute distress. Anxious Eyes: Pupils equal, round and reactive to light. ENT: Pharynx normal. Neck: Normal inspection. Neck supple. CVS: Normal heart rate and rhythm. Pulses normal. Respiratory: No respiratory distress. Breath sounds normal. Abdomen: Soft mild epigastric tenderness no rebound tenderness. Bowel sounds are present, no mass palpable, no CVA tenderness Skin: Skin warm and dry. Normal skin color. Normal skin turgor. Extremities: No lower extremity edema. Neuro: Oriented X 3. No motor deficit. No sensory deficit. Course Course Course Narrative: Patient with frequent visits with anxiety and schizophrenia complaining of upper abdominal pain with nausea and vomiting after arrival in the ER patient feeling much better able to drink water without any vomiting give him Maalox for gastritis and Ativan for anxiety Discharge Plan Discharge Clinical Impression: Acute gastritis Qualifiers: Gastritis type: unspecified gastritis Gastritis bleeding: without bleeding Qualified Code(s): K29.00 - Acute gastritis without bleeding Patient Disposition: Home, Self-Care Instructions: Gastritis (ED) Additional Instructions: Drink plenty of fluids to not smoke do not drink, do not take ibuprofen in empty stomach. Take medication as prescribed. Report to the ER/PCP if not better Prescriptions: New omeprazole 40 mg capsule,delayed release(DR/EC) 40 mg PO DAILY Qty: 20 RF: 0 sucralfate [Carafate] 1 gram tablet 1 g PO BID Qty: 30 RF: 0 No Action ketorolac 10 mg tablet 10 mg PO Q6H PRN (Reason: pain) 5 Days Qty: 20 RF: 0 naproxen 500 mg tablet 500 mg PO BID PRN (Reason: pain) Qty: 14 RF: 0 cyclobenzaprine 5 mg tablet 5 mg PO TID PRN (Reason: muscle spasm) Qty: 10 RF: 0 (DME) cane Device See Rx Instructions .ROUTE .MEDSUPPLY Qty: 1 RF: 0 cyclobenzaprine 10 mg tablet 10 mg PO BEDTIME PRN (Reason: muscle spasm) Qty: 3 RF: 0 doxycycline monohydrate 100 mg capsule 100 mg PO BID 7 Days Qty: 14 RF: 0 cephalexin [Keflex] 500 mg capsule 500 mg PO QID 7 Days Qty: 28 RF: 0 lidocaine [Lidoderm] 5 % adhesive patch,medicated 1 patch topical DAILY Qty: 15 RF: 0 ibuprofen 600 mg tablet 600 mg PO Q8H PRN (Reason: pain) Qty: 15 RF: 0 cyclobenzaprine 10 mg tablet 10 mg PO TID PRN (Reason: muscle spasm) Qty: 8 RF: 0 lidocaine [Lidoderm] 5 % adhesive patch,medicated 1 patch topical DAILY PRN (Reason: pain) Qty: 1 RF: 0 ibuprofen 400 mg tablet 400 mg PO Q6H PRN (Reason: pain) Qty: 20 RF: 0 Atarax 100 mg Tablet 100 mg PO NEEDED PRN (Reason: Anxiety) RF: 0 hydrocortisone [Anusol-HC] 2.5 % cream with perineal applicator 1 applic NM BEDTIME PRN (Reason: pain) Qty: 30 RF: 0 polyethylene glycol 3350 [Miralax] 17 gram/dose powder 17 g PO DAILY Qty: 119 RF: 0 cyclobenzaprine 10 mg tablet 10 mg PO TID PRN (Reason: muscle spasm) Qty: 30 RF: 0 tramadol 50 mg tablet 50 mg PO Q8H PRN (Reason: pain) Qty: 12 RF: 0 cyclobenzaprine 5 mg tablet 5 mg PO TID PRN (Reason: muscle spasm) Qty: 5 RF: 0 cyclobenzaprine 10 mg tablet 10 mg PO TID PRN (Reason: muscle spasm) Qty: 20 RF: 0 ketorolac 10 mg tablet 10 mg PO QID 5 Days Qty: 20 RF: 0 methocarbamol [Robaxin-750] 750 mg tablet 750 mg PO Q8H PRN (Reason: pain, severe) Qty: 10 RF: 0 acetaminophen [Tylenol Extra Strength] 500 mg tablet 500 mg PO Q6H PRN (Reason: pain or fever) Qty: 20 RF: 0 lidocaine [Lidoderm] 5 % adhesive patch,medicated 1 patch topical DAILY MDD remove after 12 hours PRN (Reason: pain) Qty: 30 RF: 0 naproxen 500 mg tablet 500 mg PO BID PRN (Reason: pain) 10 Days Qty: 20 RF: 0 Interventions: ED Discharge Assessment Last Done: 11/04/20 06:13 Discharge Date/Time: 11/04/20 06:13 [facility] Past Medical History Medical History Contusion Foot drop, right foot Heart murmur Schizophrenia Surgical History No pertinent past surgical history Social History Social History Alcohol intake: never Smoking Status: Current every day smoker Substance Use Type: Heroin and Marijuana Advance Directives: No Advance Directives Information Provided: No
--- NOTE | 2020-11-04 05:53 | PC.NURSE ---
PO CHALLENGE WITH WATER, GIVEN BY . PLAN TO MEDICATE AND RE-EVALUATE. PT REPORTS 10 OUT OF 10 PAIN. PT DOES NOT APPEAR TO BE IN ANY DISTRESS AT THIS TIME, NO FACIAL GRIMACING, NO GUARDING, NO OTHER SIGNS OF PAIN/DISCOMFORT. AMBULATES STEADILY. STATES I THINK I HAD TOO MUCH CANDY LAST NIGHT .
[2020-11-04] MEDS: Omeprazole 40 MG CAPSULE.DR PO (06:06)
[2020-11-04] MEDS: Magnesium Hydrox/Alum Hydrox 30 ML ORAL.SUSP PO (06:06)
[2020-11-04] MEDS: LORazepam 1 MG TABLET PO (06:06)
== END 2020-11-04 06:13 | disposition home or self-care (01) ==
PROVIDERS: Emergency Provider Internal Medicine
DX: K29.00 Acute gastritis without bleeding (principal)
CPT/HCPCS: 99283

== ENCOUNTER 2020-11-26 07:29 | Emergency (ER) | payer OTHER, SELFPAY | END 2020-11-26 08:42 | disposition left against medical advice (07) | PROVIDERS: Emergency Provider Emergency Medicine | DX: R52 Pain, unspecified (principal) ==

== ENCOUNTER 2020-12-04 08:42 | Emergency (ER) | payer OTHER, SELFPAY ==
[2020-12-04 09:22] VITALS: BP 136/74; PULSE 81; RESP 16; TEMP 37.4; O2SAT 97; BMI 24.3
--- NOTE | 2020-12-04 10:09 | ED.GENADULT ---
HPI - General Adult General Chief complaint: General Medical <Ray Ogden NP - Last Filed: 12/06/20 12:55> Stated complaint: swollen lip <Ray Ogden NP - Last Filed: 12/06/20 12:55> Time Seen by Provider: 12/04/20 10:09 <Ray Ogden NP - Last Filed: 12/06/20 12:55> Source: patient <Ray Ogden NP - Last Filed: 12/06/20 12:55> Mode of arrival: ambulatory <Ray Ogden NP - Last Filed: 12/06/20 12:55> Limitations: no limitations <Ray Ogden NP - Last Filed: 12/06/20 12:55> History of Present Illness HPI narrative: State irritated skin on the left side of the face just inferior to the lip chin area. <Ray Ogden NP - Last Filed: 12/06/20 12:55> Onset (ago): minute(s) <Ray Ogden NP - Last Filed: 12/06/20 12:55> Related Data Home medications: Home Medications Medication Instructions Recorded Confirmed hydroxyzine HCl [Atarax] 100 mg PO NEEDED PRN 08/03/20 08/03/20 Previous Rx's Medication Instructions Recorded hydrocortisone [Anusol-HC] 1 applic [place] BEDTIME PRN #30 g 08/13/20 polyethylene glycol 3350 [Miralax] 17 g PO DAILY #119 g 08/13/20 cyclobenzaprine 10 mg PO TID PRN #30 tab 08/15/20 tramadol 50 mg PO Q8H PRN #12 tab 08/15/20 ketorolac 10 mg PO Q6H PRN 5 Days #20 tab 08/17/20 cane #1 ea 09/01/20 cyclobenzaprine 5 mg PO TID PRN #10 tab 09/01/20 naproxen 500 mg PO BID PRN #14 tab 09/01/20 cyclobenzaprine 5 mg PO TID PRN #5 tab 09/08/20 cyclobenzaprine 10 mg PO BEDTIME PRN #3 tab 09/17/20 cyclobenzaprine 10 mg PO TID PRN #20 tab 09/22/20 ketorolac 10 mg PO QID 5 Days #20 tab 09/22/20 cephalexin [Keflex] 500 mg PO QID 7 Days #28 cap 09/26/20 doxycycline monohydrate 100 mg PO BID 7 Days #14 cap 09/26/20 cyclobenzaprine 10 mg PO TID PRN #8 tab 09/29/20 ibuprofen 600 mg PO Q8H PRN #15 tab 09/29/20 lidocaine [Lidoderm] 1 patch TOPICAL DAILY #15 ea 09/29/20 acetaminophen [Tylenol Extra 500 mg PO Q6H PRN #20 tab 10/04/20 Strength] lidocaine [Lidoderm] 1 patch TOPICAL DAILY PRN #30 ea 10/04/20 MDD remove after 12 hours methocarbamol [Robaxin-750] 750 mg PO Q8H PRN #10 tab 10/04/20 naproxen 500 mg PO BID PRN 10 Days #20 tab 10/04/20 ibuprofen 400 mg PO Q6H PRN #20 tab 10/30/20 lidocaine [Lidoderm] 1 patch TOPICAL DAILY PRN #1 ea 10/30/20 omeprazole 40 mg PO DAILY #20 cap 11/04/20 sucralfate [Carafate] 1 g PO BID #30 tab 11/04/20 mupirocin 1 appl TOPICAL BID #15 g 12/04/20 cyclobenzaprine 10 mg PO TID PRN #14 tab 12/07/20 ibuprofen 600 mg PO Q6H PRN #30 tab 12/07/20 lidocaine 1 patch TOPICAL DAILY PRN #10 ea 12/07/20 PNV no.170-iron fum-folic acid 1 tab PO DAILY #30 tab 12/15/20 omeprazole 20 mg PO DAILY #30 cap 12/15/20 <Ray Ogden NP - Last Filed: 12/06/20 12:55> Allergies/adverse reactions: Allergies Allergy/AdvReac Type Severity Reaction Status Date / Time Penicillins [PCN] Allergy Mild RASH Verified 10/30/20 09:16 silver AdvReac Intermediate rash Verified 10/30/20 09:16 [From TEGADER[facility]ESH] <Ray Ogden NP - Last Filed: 12/06/20 12:55> Review of Systems Review of Systems: Constitutional: No Weight loss, No Fever, No Chills, No Night Sweats, No Fatigue, No Malaise ENT/Mouth: No Hearing loss, No Ear Pain, No Nasal Congestion, No Sinus Pain, No Hoarseness, No sore throat, No Rhinorrhea, No Swallowing Difficulty Eyes: No Eye Pain, No Swelling, No Redness, No Foreign Body, No Discharge, No Vision Changes Cardiovascular: Negative Respiratory: Negative Musculoskeletal: No joint pain, No Myalgias, No Joint Swelling Skin: No Skin Lesions, No rash, as noted HPI Neuro: Negative Psych: Negative Heme/Lymph: No Bruising, No Bleeding,No Lymphadenopathy Endocrine: Negative <Ray Ogden NP - Last Filed: 12/06/20 12:55> Yes all other systems are reviewed and are negative <Ray Ogden NP - Last Filed: 12/06/20 12:55> PMFSH Past Medical History Medical History: Medical History Contusion Foot drop, right foot Heart murmur Schizophrenia <Ray Ogden NP - Last Filed: 12/06/20 12:55> Surgical History: Surgical History No pertinent past surgical history <Ray Ogden NP - Last Filed: 12/06/20 12:55> Social History Social History: Social History Alcohol intake: current Alcohol intake frequency: 0-2 drinks per day Alcohol type: beer and hard liquor Smoking Status: Current every day smoker Use of substances other than those prescribed or required for medical reasons: Yes Substance Use Type: Crack/Cocaine and Heroin Advance Directives: No Advance Directives Information Provided: Yes <Ray Ogden NP - Last Filed: 12/06/20 12:55> Physical Exam Vital Signs: Vital Signs: Last Vital Signs Temp 99.4 F 12/04/20 09:22 Pulse 81 12/04/20 09:22 Resp 16 12/04/20 09:22 BP 136/74 12/04/20 09:22 Pulse Ox 97 12/04/20 09:22 Body Mass Index 24.3 Reviewed <Ray Ogden NP - Last Filed: 12/06/20 12:55> Vital Signs: Last Vital Signs Temp 99.4 F 12/04/20 09:22 Pulse 81 02/03/21 09:22 Resp 16 12/04/20 09:22 BP 136/74 12/04/20 09:22 Pulse Ox 97 12/04/20 09:22 Body Mass Index 24.3 <Chan Flood MD - Last Filed: 12/23/20 06:42> Const: General: cooperative and healthy appearing; No acute distress or intoxicated appearing <Ray Ogden NP - Last Filed: 12/06/20 12:55> Nutritional Appearance: average body habitus <Ray Ogden NP - Last Filed: 12/06/20 12:55> Orientation/consciousness: patient oriented x3 <Ray Ogden NP - Last Filed: 12/06/20 12:55> HENMT: Head: Yes normal to inspection <Ray Ogden NP - Last Filed: 12/06/20 12:55> Ears: hearing grossly normal bilaterally <Ray Ogden NP - Last Filed: 12/06/20 12:55> Chest: Chest palpation & inspection: normal inspection of the chest <Ray Ogden NP - Last Filed: 12/06/20 12:55> Resp: Effort & Inspection: normal respiratory effort <Ray Ogden NP - Last Filed: 12/06/20 12:55> : General: Yes no CVA tenderness <Ray Ogden NP - Last Filed: 12/06/20 12:55> Back/Spine/Pelvis: Back: no CVA tenderness <Ray Ogden NP - Last Filed: 12/06/20 12:55> Skin: Other: Less than 0.5 mm area to the inferior left lip chin area consistent with follicular disease. No induration or lip involvement. No overt cellulitis. <Ray Ogden NP - Last Filed: 12/06/20 12:55> General skin exam: no rashes or lesions noted <Ray Ogden NP - Last Filed: 12/06/20 12:55> Neuro: General: patient oriented x3 <Ray Ogden NP - Last Filed: 12/06/20 12:55> Extrem: General: Yes normal to inspection <Ray Ogden NP - Last Filed: 12/06/20 12:55> Course Course Course Narrative: I have reviewed the chart <Chan Flood MD - Last Filed: 12/23/20 06:42> Discharge Plan Discharge Clinical Impression: Folliculitis <Ray Ogden NP - Last Filed: 12/06/20 12:55> Patient Disposition: Home, Self-Care <Ray Ogden NP - Last Filed: 12/06/20 12:55> Instructions: Folliculitis (ED), Cold Compress or Soak (ED) <Ray Ogden NP - Last Filed: 12/06/20 12:55> Additional Instructions: This is a hair follicle infection after shaving This will get better with home remedy as well as topical antibiotic ointment as prescribed Trying to shave in this area or pick at it for the next 1 week Compresses I discussed Return if any concerns or worsening symptoms Thank you <Ray Ogden NP - Last Filed: 12/06/20 12:55> Prescriptions: New mupirocin 2 % ointment 1 appl topical BID Qty: 15 RF: 0 No Action ketorolac 10 mg tablet 10 mg PO Q6H PRN (Reason: pain) 5 Days Qty: 20 RF: 0 naproxen 500 mg tablet 500 mg PO BID PRN (Reason: pain) Qty: 14 RF: 0 cyclobenzaprine 5 mg tablet 5 mg PO TID PRN (Reason: muscle spasm) Qty: 10 RF: 0 (DME) cane Device See Rx Instructions .ROUTE .MEDSUPPLY Qty: 1 RF: 0 cyclobenzaprine 10 mg tablet 10 mg PO BEDTIME PRN (Reason: muscle spasm) Qty: 3 RF: 0 doxycycline monohydrate 100 mg capsule 100 mg PO BID 7 Days Qty: 14 RF: 0 cephalexin [Keflex] 500 mg capsule 500 mg PO QID 7 Days Qty: 28 RF: 0 lidocaine [Lidoderm] 5 % adhesive patch,medicated 1 patch topical DAILY Qty: 15 RF: 0 ibuprofen 600 mg tablet 600 mg PO Q8H PRN (Reason: pain) Qty: 15 RF: 0 cyclobenzaprine 10 mg tablet 10 mg PO TID PRN (Reason: muscle spasm) Qty: 8 RF: 0 lidocaine [Lidoderm] 5 % adhesive patch,medicated 1 patch topical DAILY PRN (Reason: pain) Qty: 1 RF: 0 ibuprofen 400 mg tablet 400 mg PO Q6H PRN (Reason: pain) Qty: 20 RF: 0 omeprazole 40 mg capsule,delayed release(DR/EC) 40 mg PO DAILY Qty: 20 RF: 0 sucralfate [Carafate] 1 gram tablet 1 g PO BID Qty: 30 RF: 0 omeprazole 20 mg capsule,delayed release(DR/EC) 20 mg PO DAILY Qty: 30 RF: 0 PNV no.170-iron fum-folic acid 27 mg iron- 1 mg tablet 1 tab PO DAILY Qty: 30 RF: 0 Atarax 100 mg Tablet 100 mg PO NEEDED PRN (Reason: Anxiety) RF: 0 hydrocortisone [Anusol-HC] 2.5 % cream with perineal applicator 1 applic IL BEDTIME PRN (Reason: pain) Qty: 30 RF: 0 polyethylene glycol 3350 [Miralax] 17 gram/dose powder 17 g PO DAILY Qty: 119 RF: 0 cyclobenzaprine 10 mg tablet 10 mg PO TID PRN (Reason: muscle spasm) Qty: 30 RF: 0 tramadol 50 mg tablet 50 mg PO Q8H PRN (Reason: pain) Qty: 12 RF: 0 cyclobenzaprine 5 mg tablet 5 mg PO TID PRN (Reason: muscle spasm) Qty: 5 RF: 0 cyclobenzaprine 10 mg tablet 10 mg PO TID PRN (Reason: muscle spasm) Qty: 20 RF: 0 ketorolac 10 mg tablet 10 mg PO QID 5 Days Qty: 20 RF: 0 methocarbamol [Robaxin-750] 750 mg tablet 750 mg PO Q8H PRN (Reason: pain, severe) Qty: 10 RF: 0 acetaminophen [Tylenol Extra Strength] 500 mg tablet 500 mg PO Q6H PRN (Reason: pain or fever) Qty: 20 RF: 0 lidocaine [Lidoderm] 5 % adhesive patch,medicated 1 patch topical DAILY MDD remove after 12 hours PRN (Reason: pain) Qty: 30 RF: 0 naproxen 500 mg tablet 500 mg PO BID PRN (Reason: pain) 10 Days Qty: 20 RF: 0 cyclobenzaprine 10 mg tablet 10 mg PO TID PRN (Reason: muscle spasm) Qty: 14 RF: 0 lidocaine 4 % adhesive patch,medicated 1 patch topical DAILY PRN (Reason: pain) Qty: 10 RF: 0 ibuprofen 600 mg tablet 600 mg PO Q6H PRN (Reason: pain) Qty: 30 RF: 0 <Ray Ogden NP - Last Filed: 12/06/20 12:55> Referrals: Physician,Unknown [Primary Care Provider] - 1 week (Your primary care doctor) <Ray Ogden NP - Last Filed: 12/06/20 12:55> Interventions: ED Discharge Assessment Last Done: 12/04/20 10:28 <Ray Ogden NP - Last Filed: 12/06/20 12:55> Discharge Date/Time: 12/04/20 10:28 <Ray Ogden NP - Last Filed: 12/06/20 12:55>
== END 2020-12-04 10:28 | disposition home or self-care (01) ==
PROVIDERS: Emergency Provider Emergency Medicine
DX: L73.9 Follicular disorder, unspecified (principal); F17.200 Nicotine dependence, unspecified, uncomplicated
CPT/HCPCS: 99283

== ENCOUNTER 2020-12-05 07:39 | Emergency (ER) | payer OTHER, SELFPAY ==
[2020-12-05 08:22] VITALS: BP 122/66; PULSE 69; RESP 16; TEMP 36.8; O2SAT 100; BMI 24.3
--- NOTE | 2020-12-05 10:51 | PC.NURSE ---
1st call to ed bed, not in wr
== END 2020-12-05 11:27 | disposition left against medical advice (07) ==
PROVIDERS: Emergency Provider Emergency Medicine
DX: M79.10 Myalgia, unspecified site (principal)
CPT/HCPCS: 99281; 99283

== ENCOUNTER 2020-12-07 04:56 | Emergency (ER) | payer OTHER, SELFPAY ==
[2020-12-07 06:43] VITALS: BP 121/74; PULSE 62; RESP 16; TEMP 36.8; O2SAT 98; BMI 24.7
--- NOTE | 2020-12-07 06:45 | ED.BACK ---
HPI - Back Pain/Injury General Chief Complaint: Back Pain/Injury Stated Complaint: Back pain Time Seen by Provider: 12/07/20 06:43 Source: patient and old records reviewed Mode of arrival: ambulatory Limitations: no limitations History of Present Illness MD elicited complaint: back pain Pertinent past history: prior back pain Onset (ago): day(s) (few) Timing: constant Severity: moderate Similar Symptoms Previously: Yes Quality: aching and spasming Location: lumbar spine and thoracic spine Radiation: none Exacerbating factors: movement Relieving factors: medication Context: unknown Associated symptoms: denies other symptoms Work related injury: No Related Data Home Medications Medication Instructions Recorded Confirmed hydroxyzine HCl [Atarax] 100 mg PO NEEDED PRN 08/03/20 08/03/20 Previous Rx's Medication Instructions Recorded hydrocortisone [Anusol-HC] 1 applic NE BEDTIME PRN #30 g 08/13/20 polyethylene glycol 3350 [Miralax] 17 g PO DAILY #119 g 08/13/20 cyclobenzaprine 10 mg PO TID PRN #30 tab 08/15/20 tramadol 50 mg PO Q8H PRN #12 tab 08/15/20 ketorolac 10 mg PO Q6H PRN 5 Days #20 tab 08/17/20 cane #1 ea 09/01/20 cyclobenzaprine 5 mg PO TID PRN #10 tab 09/01/20 naproxen 500 mg PO BID PRN #14 tab 09/01/20 cyclobenzaprine 5 mg PO TID PRN #5 tab 09/08/20 cyclobenzaprine 10 mg PO BEDTIME PRN #3 tab 09/17/20 cyclobenzaprine 10 mg PO TID PRN #20 tab 09/22/20 ketorolac 10 mg PO QID 5 Days #20 tab 09/22/20 cephalexin [Keflex] 500 mg PO QID 7 Days #28 cap 09/26/20 doxycycline monohydrate 100 mg PO BID 7 Days #14 cap 09/26/20 cyclobenzaprine 10 mg PO TID PRN #8 tab 09/29/20 ibuprofen 600 mg PO Q8H PRN #15 tab 09/29/20 lidocaine [Lidoderm] 1 patch TOPICAL DAILY #15 ea 09/29/20 acetaminophen [Tylenol Extra 500 mg PO Q6H PRN #20 tab 10/04/20 Strength] lidocaine [Lidoderm] 1 patch TOPICAL DAILY PRN #30 ea 10/04/20 MDD remove after 12 hours methocarbamol [Robaxin-750] 750 mg PO Q8H PRN #10 tab 10/04/20 naproxen 500 mg PO BID PRN 10 Days #20 tab 10/04/20 ibuprofen 400 mg PO Q6H PRN #20 tab 10/30/20 lidocaine [Lidoderm] 1 patch TOPICAL DAILY PRN #1 ea 10/30/20 omeprazole 40 mg PO DAILY #20 cap 11/04/20 sucralfate [Carafate] 1 g PO BID #30 tab 11/04/20 mupirocin 1 appl TOPICAL BID #15 g 12/04/20 cyclobenzaprine 10 mg PO TID PRN #14 tab 12/07/20 ibuprofen 600 mg PO Q6H PRN #30 tab 12/07/20 lidocaine 1 patch TOPICAL DAILY PRN #10 ea 12/07/20 Allergies Allergy/AdvReac Type Severity Reaction Status Date / Time Penicillins [PCN] Allergy Mild RASH Verified 10/30/20 09:16 silver AdvReac Intermediate rash Verified 10/30/20 09:16 [From [facility]ESH] Review of Systems Review of Systems: Constitutional : No Weight loss, No Fever, No Chills, ENT/Mouth : No Hearing loss, No Ear Pain, No Nasal Congestion, No Sinus Pain, No Hoarseness, No sore throat, No Rhinorrhea, No Swallowing Difficulty Cardiovascular : No Chest Pain, No SOB Respiratory : No Cough, No Dyspnea Gastrointestinal : No Nausea, No Vomiting, No Diarrhea, No abdominal Pain, No Hematochezia, No Melena Genitourinary : No Dysuria, No Urinary Frequency, No Hematuria, No Urinary Incontinence, Musculoskeletal : positive back pain Skin : No Skin Lesions, No rash Neuro : No Weakness, No Numbness, No Paresthesias, no loss of bowel or bladder incontinence, no saddle anesthesia [facility] Past Medical History Attestation statement: The following information was validated with the patient. Medical History Contusion Foot drop, right foot Heart murmur Schizophrenia Surgical History No pertinent past surgical history Social History Social History Alcohol intake: current Alcohol intake frequency: 3 or more drinks per day Alcohol type: beer and hard liquor Smoking Status: Current every day smoker Substance Use Type: Marijuana Advance Directives: No Advance Directives Information Provided: No Physical Exam Vital Signs: Vital Signs: Last Vital Signs Temp 98.2 F 12/07/20 06:43 Pulse 62 12/07/20 06:43 Resp 16 12/07/20 06:43 BP 121/74 12/07/20 06:43 Pulse Ox 98 12/07/20 06:43 Body Mass Index 24.7 Appearance: Alert. Oriented X3. No acute distress. Eyes: Pupils equal, round and reactive to light. ENT: Pharynx normal. Neck: Normal inspection. Neck supple. CVS: Normal heart rate and rhythm. Pulses normal. Respiratory: No respiratory distress. Breath sounds normal. Abdomen: Soft and nontender. Skin: Skin warm and dry. Normal skin color. Normal skin turgor. Extremities: No lower extremity edema. No calf ttp Neuro: Oriented X 3. No motor deficit. No sensory deficit. (chronic R foot drop) MDM - Back Pain/Injury MDM Narrative Medical decision making narrative: 35 yo male with no IVDA, no AC therapy, no saddle anesthesia, no b/b incontinence, comes in with c/o chronic back pain and spasms, he is NV intact other than R chronic foot drop - start on lidocaine, flexeril, ibuprofen, refer to PCP, threw away his orthotic boot explained to him that it may be difficult to replace needs to follow up with PCP Discharge Plan Discharge Clinical Impression: Muscle spasm of back Patient Disposition: Home, Self-Care Instructions: Muscle Spasm (ED) Additional Instructions: return to ED for any worsening symptoms or concerns Prescriptions: New cyclobenzaprine 10 mg tablet 10 mg PO TID PRN (Reason: muscle spasm) Qty: 14 RF: 0 lidocaine 4 % adhesive patch,medicated 1 patch topical DAILY PRN (Reason: pain) Qty: 10 RF: 0 ibuprofen 600 mg tablet 600 mg PO Q6H PRN (Reason: pain) Qty: 30 RF: 0 No Action ketorolac 10 mg tablet 10 mg PO Q6H PRN (Reason: pain) 5 Days Qty: 20 RF: 0 naproxen 500 mg tablet 500 mg PO BID PRN (Reason: pain) Qty: 14 RF: 0 cyclobenzaprine 5 mg tablet 5 mg PO TID PRN (Reason: muscle spasm) Qty: 10 RF: 0 (DME) cane Device See Rx Instructions .ROUTE .MEDSUPPLY Qty: 1 RF: 0 cyclobenzaprine 10 mg tablet 10 mg PO BEDTIME PRN (Reason: muscle spasm) Qty: 3 RF: 0 doxycycline monohydrate 100 mg capsule 100 mg PO BID 7 Days Qty: 14 RF: 0 cephalexin [Keflex] 500 mg capsule 500 mg PO QID 7 Days Qty: 28 RF: 0 lidocaine [Lidoderm] 5 % adhesive patch,medicated 1 patch topical DAILY Qty: 15 RF: 0 ibuprofen 600 mg tablet 600 mg PO Q8H PRN (Reason: pain) Qty: 15 RF: 0 cyclobenzaprine 10 mg tablet 10 mg PO TID PRN (Reason: muscle spasm) Qty: 8 RF: 0 lidocaine [Lidoderm] 5 % adhesive patch,medicated 1 patch topical DAILY PRN (Reason: pain) Qty: 1 RF: 0 ibuprofen 400 mg tablet 400 mg PO Q6H PRN (Reason: pain) Qty: 20 RF: 0 omeprazole 40 mg capsule,delayed release(DR/EC) 40 mg PO DAILY Qty: 20 RF: 0 sucralfate [Carafate] 1 gram tablet 1 g PO BID Qty: 30 RF: 0 mupirocin 2 % ointment 1 appl topical BID Qty: 15 RF: 0 Atarax 100 mg Tablet 100 mg PO NEEDED PRN (Reason: Anxiety) RF: 0 hydrocortisone [Anusol-HC] 2.5 % cream with perineal applicator 1 applic NE BEDTIME PRN (Reason: pain) Qty: 30 RF: 0 polyethylene glycol 3350 [Miralax] 17 gram/dose powder 17 g PO DAILY Qty: 119 RF: 0 cyclobenzaprine 10 mg tablet 10 mg PO TID PRN (Reason: muscle spasm) Qty: 30 RF: 0 tramadol 50 mg tablet 50 mg PO Q8H PRN (Reason: pain) Qty: 12 RF: 0 cyclobenzaprine 5 mg tablet 5 mg PO TID PRN (Reason: muscle spasm) Qty: 5 RF: 0 cyclobenzaprine 10 mg tablet 10 mg PO TID PRN (Reason: muscle spasm) Qty: 20 RF: 0 ketorolac 10 mg tablet 10 mg PO QID 5 Days Qty: 20 RF: 0 methocarbamol [Robaxin-750] 750 mg tablet 750 mg PO Q8H PRN (Reason: pain, severe) Qty: 10 RF: 0 acetaminophen [Tylenol Extra Strength] 500 mg tablet 500 mg PO Q6H PRN (Reason: pain or fever) Qty: 20 RF: 0 lidocaine [Lidoderm] 5 % adhesive patch,medicated 1 patch topical DAILY MDD remove after 12 hours PRN (Reason: pain) Qty: 30 RF: 0 naproxen 500 mg tablet 500 mg PO BID PRN (Reason: pain) 10 Days Qty: 20 RF: 0 Referrals: Physician,Unknown [Primary Care Provider] - 2 days (if not better)
[2020-12-07] MEDS: Cyclobenzaprine HCl 10 MG TABLET PO (07:06)
[2020-12-07] MEDS: Lidocaine 4 % Patch ADH..PATCH 1 PATCH TRANSDERMA (07:06)
== END 2020-12-07 07:08 | disposition home or self-care (01) ==
PROVIDERS: Emergency Provider Emergency Medicine
DX: M62.830 Muscle spasm of back (principal); M21.371 Foot drop, right foot; F17.200 Nicotine dependence, unspecified, uncomplicated
CPT/HCPCS: 99283

== ENCOUNTER 2020-12-08 12:46 | Emergency (ER) | payer OTHER, SELFPAY | END 2020-12-08 15:54 | disposition left against medical advice (07) | PROVIDERS: Emergency Provider Emergency Medicine | DX: M79.672 Pain in left foot (principal) ==

== ENCOUNTER 2020-12-13 14:10 | Emergency (ER) | payer OTHER, SELFPAY | END 2020-12-13 15:34 | disposition left against medical advice (07) | PROVIDERS: Emergency Provider Emergency Medicine | DX: R10.9 Unspecified abdominal pain (principal); R11.10 Vomiting, unspecified ==

== ENCOUNTER 2020-12-15 07:12 | Emergency (ER) | payer OTHER, SELFPAY ==
[2020-12-15 07:33] VITALS: BP 111/71; PULSE 80; RESP 16; TEMP 36.8; O2SAT 98; BMI 22.0
--- NOTE | 2020-12-15 07:56 | ED.GENADULT ---
HPI - General Adult General Chief complaint: Nausea/Vomiting/Diarrhea Stated complaint: STOMACH PAIN Time Seen by Provider: 12/15/20 07:40 Source: patient Mode of arrival: ambulatory Limitations: no limitations History of Present Illness HPI narrative: 35-year-old male who presents to the emergency department for evaluation of abdominal pain, nausea and weakness. The patient states that he drinks daily. He states that he drank a pt of Tequila, yesterday and stop drinking around 5:00 p.m. He states that he has history of gastritis and has epigastric pain constantly. He states that since finishing the Tequila he has had increased pain. He points to his mid epigastric area when asked to localize the pain. The pain is a constant, burning sensation which is 9/10 at its worst. He has associated nausea. He states that he vomited 2 times this morning, there was no blood in the emesis. He states that he is feeling weak. The patient denied change in his bowel movements, he states that he is constipated and this is a chronic condition. The patient recently got out of detox but did not complete his course of detox since he disagreed with the staff and had to leave early. He states that he also uses heroin-injection and intranasal, and smokes crack cocaine. He has not used these drugs in over a week. Related Data Home Medications Medication Instructions Recorded Confirmed hydroxyzine HCl [Atarax] 100 mg PO NEEDED PRN 08/03/20 08/03/20 Previous Rx's Medication Instructions Recorded hydrocortisone [Anusol-HC] 1 applic GA BEDTIME PRN #30 g 08/13/20 polyethylene glycol 3350 [Miralax] 17 g PO DAILY #119 g 08/13/20 cyclobenzaprine 10 mg PO TID PRN #30 tab 08/15/20 tramadol 50 mg PO Q8H PRN #12 tab 08/15/20 ketorolac 10 mg PO Q6H PRN 5 Days #20 tab 08/17/20 cane #1 ea 09/01/20 cyclobenzaprine 5 mg PO TID PRN #10 tab 09/01/20 naproxen 500 mg PO BID PRN #14 tab 09/01/20 cyclobenzaprine 5 mg PO TID PRN #5 tab 09/08/20 cyclobenzaprine 10 mg PO BEDTIME PRN #3 tab 09/17/20 cyclobenzaprine 10 mg PO TID PRN #20 tab 09/22/20 ketorolac 10 mg PO QID 5 Days #20 tab 09/22/20 cephalexin [Keflex] 500 mg PO QID 7 Days #28 cap 09/26/20 doxycycline monohydrate 100 mg PO BID 7 Days #14 cap 09/26/20 cyclobenzaprine 10 mg PO TID PRN #8 tab 09/29/20 ibuprofen 600 mg PO Q8H PRN #15 tab 09/29/20 lidocaine [Lidoderm] 1 patch TOPICAL DAILY #15 ea 09/29/20 acetaminophen [Tylenol Extra 500 mg PO Q6H PRN #20 tab 10/04/20 Strength] lidocaine [Lidoderm] 1 patch TOPICAL DAILY PRN #30 ea 10/04/20 MDD remove after 12 hours methocarbamol [Robaxin-750] 750 mg PO Q8H PRN #10 tab 10/04/20 naproxen 500 mg PO BID PRN 10 Days #20 tab 10/04/20 ibuprofen 400 mg PO Q6H PRN #20 tab 10/30/20 lidocaine [Lidoderm] 1 patch TOPICAL DAILY PRN #1 ea 10/30/20 omeprazole 40 mg PO DAILY #20 cap 11/04/20 sucralfate [Carafate] 1 g PO BID #30 tab 11/04/20 mupirocin 1 appl TOPICAL BID #15 g 12/04/20 cyclobenzaprine 10 mg PO TID PRN #14 tab 12/07/20 ibuprofen 600 mg PO Q6H PRN #30 tab 12/07/20 lidocaine 1 patch TOPICAL DAILY PRN #10 ea 12/07/20 Allergies Allergy/AdvReac Type Severity Reaction Status Date / Time Penicillins [PCN] Allergy Mild RASH Verified 10/30/20 09:16 silver AdvReac Intermediate rash Verified 10/30/20 09:16 [From [employer] MESH] Review of Systems Review of Systems: Yes all other systems are reviewed and are negative Neurologic: Reports Abnormal speech present [facility] Past Medical History [facility] Narrative: Past medical history: Schizoaffective disorder, fibromyalgia, heart murmur, alcohol abuse, opiate abuse, cocaine abuse. The patient smokes 2 packs per day times 14 years, he drinks alcohol daily up to 1-2 pt, he uses injection intranasal heroin and smokes crack cocaine. Medical History Contusion Foot drop, right foot Heart murmur Schizophrenia Surgical History No pertinent past surgical history Social History Social History Alcohol intake: current Alcohol intake frequency: 0-2 drinks per day Alcohol type: beer and hard liquor Smoking Status: Current every day smoker Use of substances other than those prescribed or required for medical reasons: Yes Substance Use Type: Crack/Cocaine and Heroin Advance Directives: No Advance Directives Information Provided: Yes Physical Exam Vital Signs: Vital Signs: Last Vital Signs Temp 98.3 F 12/15/20 07:33 Pulse 80 12/15/20 07:33 Resp 16 12/15/20 07:33 BP 111/71 12/15/20 07:33 Pulse Ox 98 12/15/20 07:33 Body Mass Index 22.0 Const: General: cooperative and healthy appearing Orientation/consciousness: oriented to person and oriented to place Limitations: no limitations HENMT: Head: Yes normal to inspection, Yes normocephalic and Yes atraumatic Ears: external ears normal General nose exam: Normal external nose present Face and sinus: Yes normal facial exam Mouth: Normal oral and palatal mucosa present Throat: Yes posterior oropharynx normal Eyes: Periorbital: periorbital findings normal Eyelids: Yes eyelids normal Conjunctivae: conjunctivae normal Sclerae: sclerae normal Corneas: corneas normal Pupils: Equal, round and reactive pupils present Direct Ophthalmoscopy: normal light reflex Neck: Neck: Yes full ROM, Yes no lymphadenopathy, Yes no meningeal signs, Yes trachea midline and Yes supple Chest: Chest palpation & inspection: normal inspection of the chest and normal palpation of entire chest wall Resp: Effort & Inspection: normal respiratory effort and able to speak in complete sentences Auscultation: clear to auscultation bilaterally Cardio: Rate: regular rate Rhythm: regular rhythm Heart sounds: S1 normal heart sound present, S2 normal heart sound present and no murmurs GI: Inspection: Yes normal to inspection Palpation (GI): Soft to palpation, Tenderness to palpation present (GI) in the epigastrum (Moderate), no guarding, not rigid and No hepatosplenomegaly present : General: Yes no CVA tenderness Back/Spine/Pelvis: Back: no CVA tenderness Cervical Spine: normal cervical lordosis Thoracic/Lumbar Spine: thoracic and lumbar spine normal to inspection Skin: Lesions: no lesions Rashes: no rashes Wounds: no wounds Neuro: General: oriented to person, oriented to place and no meningeal signs Cranial nerves: Yes Equal, round and reactive pupils present Cognition (Neuro): normal cognition Speech: Abnormal speech present Motor exam (neuro): 5/5 motor strength present throughout Extrem: General: Yes normal to inspection and Yes full ROM Psych: Appearance: well kempt Mental Status: mental status grossly normal Speech and movement: Normal speech and movement present Affect: normal affect Attitude: cooperative Thought process: Normal thought process present Thought content: Normal thought content present Course Course Course Narrative: 35-year-old male who presents emergency department for evaluation of nausea, vomiting and abdominal pain. The patient has gastritis. He drinks alcohol daily. He states that he finished a pint of TeGenescoila yesterday and since then he has been having increased epigastric pain. He also had nausea and vomiting which began this morning. Examination revealed midepigastric tenderness otherwise was unremarkable. Patient was ordered to get Zofran 4 mg ODT sublingual and a GI cocktail of Maalox 30 cc, viscous lidocaine 10 cc and 10 cc orally. 0837: Patient is feeling better after the above treatment. The patient is not interested in getting into detox at this time. The patient will be discharged with a prescription for omeprazole and vitamins. Discharge Plan Discharge Prescriptions: No Action ketorolac 10 mg tablet 10 mg PO Q6H PRN (Reason: pain) 5 Days Qty: 20 RF: 0 naproxen 500 mg tablet 500 mg PO BID PRN (Reason: pain) Qty: 14 RF: 0 cyclobenzaprine 5 mg tablet 5 mg PO TID PRN (Reason: muscle spasm) Qty: 10 RF: 0 (DME) cane Device See Rx Instructions .ROUTE .MEDSUPPLY Qty: 1 RF: 0 cyclobenzaprine 10 mg tablet 10 mg PO BEDTIME PRN (Reason: muscle spasm) Qty: 3 RF: 0 doxycycline monohydrate 100 mg capsule 100 mg PO BID 7 Days Qty: 14 RF: 0 cephalexin [Keflex] 500 mg capsule 500 mg PO QID 7 Days Qty: 28 RF: 0 lidocaine [Lidoderm] 5 % adhesive patch,medicated 1 patch topical DAILY Qty: 15 RF: 0 ibuprofen 600 mg tablet 600 mg PO Q8H PRN (Reason: pain) Qty: 15 RF: 0 cyclobenzaprine 10 mg tablet 10 mg PO TID PRN (Reason: muscle spasm) Qty: 8 RF: 0 lidocaine [Lidoderm] 5 % adhesive patch,medicated 1 patch topical DAILY PRN (Reason: pain) Qty: 1 RF: 0 ibuprofen 400 mg tablet 400 mg PO Q6H PRN (Reason: pain) Qty: 20 RF: 0 omeprazole 40 mg capsule,delayed release(DR/EC) 40 mg PO DAILY Qty: 20 RF: 0 sucralfate [Carafate] 1 gram tablet 1 g PO BID Qty: 30 RF: 0 mupirocin 2 % ointment 1 appl topical BID Qty: 15 RF: 0 Atarax 100 mg Tablet 100 mg PO NEEDED PRN (Reason: Anxiety) RF: 0 hydrocortisone [Anusol-HC] 2.5 % cream with perineal applicator 1 applic GA BEDTIME PRN (Reason: pain) Qty: 30 RF: 0 polyethylene glycol 3350 [Miralax] 17 gram/dose powder 17 g PO DAILY Qty: 119 RF: 0 cyclobenzaprine 10 mg tablet 10 mg PO TID PRN (Reason: muscle spasm) Qty: 30 RF: 0 tramadol 50 mg tablet 50 mg PO Q8H PRN (Reason: pain) Qty: 12 RF: 0 cyclobenzaprine 5 mg tablet 5 mg PO TID PRN (Reason: muscle spasm) Qty: 5 RF: 0 cyclobenzaprine 10 mg tablet 10 mg PO TID PRN (Reason: muscle spasm) Qty: 20 RF: 0 ketorolac 10 mg tablet 10 mg PO QID 5 Days Qty: 20 RF: 0 methocarbamol [Robaxin-750] 750 mg tablet 750 mg PO Q8H PRN (Reason: pain, severe) Qty: 10 RF: 0 acetaminophen [Tylenol Extra Strength] 500 mg tablet 500 mg PO Q6H PRN (Reason: pain or fever) Qty: 20 RF: 0 lidocaine [Lidoderm] 5 % adhesive patch,medicated 1 patch topical DAILY MDD remove after 12 hours PRN (Reason: pain) Qty: 30 RF: 0 naproxen 500 mg tablet 500 mg PO BID PRN (Reason: pain) 10 Days Qty: 20 RF: 0 cyclobenzaprine 10 mg tablet 10 mg PO TID PRN (Reason: muscle spasm) Qty: 14 RF: 0 lidocaine 4 % adhesive patch,medicated 1 patch topical DAILY PRN (Reason: pain) Qty: 10 RF: 0 ibuprofen 600 mg tablet 600 mg PO Q6H PRN (Reason: pain) Qty: 30 RF: 0
[2020-12-15] MEDS: Magnesium Hydrox/Alum Hydrox 30 ML ORAL.SUSP PO (08:11)
[2020-12-15] MEDS: Lidocaine HCl Viscous 2 % 15 ML SOLUTION 10 ML PO (08:11)
[2020-12-15] MEDS: PHENobarb/Hyoscy/Atropine/Scop 10 ML ELIXIR PO (08:11)
--- NOTE | 2020-12-15 08:12 | PC.NURSE ---
pt eating pretzels and drinking gingerale
== END 2020-12-15 08:58 | disposition home or self-care (01) ==
PROVIDERS: Emergency Provider Emergency Medicine Emergency Medical Services
DX: R10.13 Epigastric pain (principal); F11.10 Opioid abuse, uncomplicated; F14.10 Cocaine abuse, uncomplicated; F17.200 Nicotine dependence, unspecified, uncomplicated; Z79.899 Other long term (current) drug therapy; Z71.6 Tobacco abuse counseling; Z71.51 Drug abuse counseling and surveillance of drug abuser
CPT/HCPCS: 99283

== ENCOUNTER 2020-12-27 06:03 | Emergency (ER) | payer OTHER, SELFPAY ==
[2020-12-27 06:15] VITALS: BP 119/71; PULSE 58; RESP 16; TEMP 36.7; O2SAT 98; BMI 21.2
--- NOTE | 2020-12-27 07:29 | ED_ITS ---
HPI - General Adult General Chief complaint: Abdominal Pain Stated complaint: Abd pain/ Vomiting/ L Arm pain Time Seen by Provider: 12/27/20 07:10 Source: patient Mode of arrival: ambulatory Limitations: no limitations History of Present Illness HPI narrative: 35-year-old male who presents emergency department for evaluation of abdominal pain and vomiting. Patient is well-known to the emergency department, has a history of alcohol use disorder and gastritis, he has been seen here frequently with similar complaints. He was last seen on December 15, 2020 by me for similar complaints. At that time he was given prescription for omeprazole and multivitamins, he states that he has filled the omeprazole and is taking it. The patient does have a history of alcohol use disorder and drinks a pint of Tequila per day but states he has not had a drink for approximately 4-5 days. He states that yesterday at 5:00 p.m. he ate fried chicken and shortly after that developed nausea, abdominal pain and vomiting. He states that he has a burning abdominal pain which is constant, located in the mid epigastric area, is moderate to severe in intensity and is associated with nausea and vomiting. He states he has vomited 2-3 times since onset of his symptoms. He denies any diarrhea. He also is complaining of chronic back pain. He states that his back hurts from his neck to his lower spine and that this is a chronic condition that he takes Ketoralac, Flexeril and lidocaine patches with some relief his pain. He states he is out of all 3 of these medications. Related Data Home Medications Medication Instructions Recorded Confirmed hydroxyzine HCl [Atarax] 100 mg PO NEEDED PRN 08/03/20 08/03/20 Previous Rx's Medication Instructions Recorded hydrocortisone [Anusol-HC] 1 applic MD BEDTIME PRN #30 g 08/13/20 polyethylene glycol 3350 [Miralax] 17 g PO DAILY #119 g 08/13/20 cyclobenzaprine 10 mg PO TID PRN #30 tab 08/15/20 tramadol 50 mg PO Q8H PRN #12 tab 08/15/20 ketorolac 10 mg PO Q6H PRN 5 Days #20 tab 08/17/20 cane #1 ea 09/01/20 cyclobenzaprine 5 mg PO TID PRN #10 tab 09/01/20 naproxen 500 mg PO BID PRN #14 tab 09/01/20 cyclobenzaprine 5 mg PO TID PRN #5 tab 09/08/20 cyclobenzaprine 10 mg PO BEDTIME PRN #3 tab 09/17/20 cyclobenzaprine 10 mg PO TID PRN #20 tab 09/22/20 ketorolac 10 mg PO QID 5 Days #20 tab 09/22/20 cephalexin [Keflex] 500 mg PO QID 7 Days #28 cap 09/26/20 doxycycline monohydrate 100 mg PO BID 7 Days #14 cap 09/26/20 cyclobenzaprine 10 mg PO TID PRN #8 tab 09/29/20 ibuprofen 600 mg PO Q8H PRN #15 tab 09/29/20 lidocaine [Lidoderm] 1 patch TOPICAL DAILY #15 ea 09/29/20 acetaminophen [Tylenol Extra 500 mg PO Q6H PRN #20 tab 10/04/20 Strength] lidocaine [Lidoderm] 1 patch TOPICAL DAILY PRN #30 ea 10/04/20 MDD remove after 12 hours methocarbamol [Robaxin-750] 750 mg PO Q8H PRN #10 tab 10/04/20 naproxen 500 mg PO BID PRN 10 Days #20 tab 10/04/20 ibuprofen 400 mg PO Q6H PRN #20 tab 10/30/20 lidocaine [Lidoderm] 1 patch TOPICAL DAILY PRN #1 ea 10/30/20 omeprazole 40 mg PO DAILY #20 cap 11/04/20 sucralfate [Carafate] 1 g PO BID #30 tab 11/04/20 mupirocin 1 appl TOPICAL BID #15 g 12/04/20 cyclobenzaprine 10 mg PO TID PRN #14 tab 12/07/20 ibuprofen 600 mg PO Q6H PRN #30 tab 12/07/20 lidocaine 1 patch TOPICAL DAILY PRN #10 ea 12/07/20 PNV no.170-iron fum-folic acid 1 tab PO DAILY #30 tab 12/15/20 omeprazole 20 mg PO DAILY #30 cap 12/15/20 cyclobenzaprine 10 mg PO TID PRN #20 tab 12/27/20 lidocaine 1 patch TOPICAL Q24H #15 ea 12/27/20 Allergies Allergy/AdvReac Type Severity Reaction Status Date / Time Penicillins [PCN] Allergy Mild RASH Verified 10/30/20 09:16 silver AdvReac Intermediate rash Verified 10/30/20 09:16 [From [employer] MESH] Review of Systems Review of Systems: Yes all other systems are reviewed and are negative Neurologic: Reports Abnormal speech present [facility] Past Medical History [facility] Narrative: Past medical history also includes alcohol use disorder, alcoholic gastritis and chronic back pain Medical History Contusion Foot drop, right foot Heart murmur Schizophrenia Surgical History No pertinent past surgical history Social History Social History Alcohol intake: current Alcohol intake frequency: 0-2 drinks per day Alcohol type: beer and hard liquor Smoking Status: Current every day smoker Substance Use Type: Crack/Cocaine and Heroin Advance Directives: No Physical Exam Vital Signs: Vital Signs: Last Vital Signs Temp 98.1 F 12/27/20 06:15 Pulse 58 12/27/20 06:15 Resp 16 12/27/20 06:15 BP 119/71 12/27/20 06:15 Pulse Ox 98 12/27/20 06:15 Body Mass Index 21.2 Const: General: cooperative Orientation/consciousness: oriented to person and oriented to place Limitations: no limitations HENMT: Head: Yes normal to inspection, Yes normocephalic and Yes atraumatic Ears: external ears normal General nose exam: Normal external nose present Face and sinus: Yes normal facial exam Mouth: Normal oral and palatal mucosa present Throat: Yes posterior oropharynx normal Eyes: Periorbital: periorbital findings normal Eyelids: Yes eyelids normal Conjunctivae: conjunctivae normal Sclerae: sclerae normal Corneas: corneas normal Pupils: Equal, round and reactive pupils present Direct Ophthalmoscopy: normal light reflex Neck: Neck: Yes full ROM, Yes no lymphadenopathy, Yes no meningeal signs, Yes trachea midline and Yes supple Chest: Chest palpation & inspection: normal inspection of the chest and normal palpation of entire chest wall Resp: Effort & Inspection: normal respiratory effort and able to speak in complete sentences Auscultation: clear to auscultation bilaterally Cardio: Rate: regular rate Rhythm: regular rhythm Heart sounds: S1 normal heart sound present, S2 normal heart sound present and no murmurs GI: Inspection: Yes normal to inspection Palpation (GI): Soft to palpation, Tenderness to palpation present (GI) in the epigastrum (Moderate), no guarding, not rigid and No hepatosplenomegaly present : General: Yes no CVA tenderness Back/Spine/Pelvis: Back: no CVA tenderness Cervical Spine: normal cervical lordosis Thoracic/Lumbar Spine: thoracic and lumbar spine normal to inspection Skin: Lesions: no lesions Rashes: no rashes Wounds: no wounds Neuro: General: oriented to person, oriented to place and no meningeal signs Cranial nerves: Yes CN's II-XII intact bilaterally and Yes Equal, round and reactive pupils present Cognition (Neuro): normal cognition Speech: Abnormal speech present Motor exam (neuro): 5/5 motor strength present throughout Extrem: General: Yes normal to inspection and Yes full ROM Psych: Appearance: well kempt Mental Status: mental status grossly normal Speech and movement: Normal speech and movement present Affect: normal affect Attitude: cooperative Thought process: Normal thought process present Thought content: Normal thought content present Course Course Course Narrative: 35-year-old male with a history of alcohol use disorder, alcoholic gastritis, chronic back pain who presents emergency department for evaluation of epigastric pain, nausea, vomiting and back pain. Physical examination did reveal midepigastric tenderness otherwise was unremarkable. The patient was worked up 1 week ago and has had multiple workups in the past which have been unremarkable. The patient will be treated for nausea, vomiting and gastritis with Zofran 4 mg ODT, viscous lidocaine 10 mL orally, 10 mL orally and Maalox 30 mL orally. 0800: Patient states that he is feeling better. The patient was discharged home, I did give him a prescription for cyclobenzaprine and lidocaine patches for his back pain. He was advised to continue to take omeprazole for his gastritis. Discharge Plan Discharge Clinical Impression: Gastritis Qualifiers: Gastritis type: alcoholic Chronicity: acute Gastritis bleeding: without bleeding Qualified Code(s): K29.20 - Alcoholic gastritis without bleeding Back pain Qualifiers: Back pain location: low back pain Chronicity: acute Back pain laterality: bilateral Sciatica presence: without sciatica Qualified Code(s): M54.5 - Low back pain Patient Disposition: Home, Self-Care Instructions: Gastritis (ED) Prescriptions: New cyclobenzaprine 10 mg tablet 10 mg PO TID PRN (Reason: muscle pain or spasm) Qty: 20 RF: 0 lidocaine 5 % adhesive patch,medicated 1 patch topical Q24H Qty: 15 RF: 0 No Action ketorolac 10 mg tablet 10 mg PO Q6H PRN (Reason: pain) 5 Days Qty: 20 RF: 0 naproxen 500 mg tablet 500 mg PO BID PRN (Reason: pain) Qty: 14 RF: 0 cyclobenzaprine 5 mg tablet 5 mg PO TID PRN (Reason: muscle spasm) Qty: 10 RF: 0 (DME) cane Device See Rx Instructions .ROUTE .MEDSUPPLY Qty: 1 RF: 0 cyclobenzaprine 10 mg tablet 10 mg PO BEDTIME PRN (Reason: muscle spasm) Qty: 3 RF: 0 doxycycline monohydrate 100 mg capsule 100 mg PO BID 7 Days Qty: 14 RF: 0 cephalexin [Keflex] 500 mg capsule 500 mg PO QID 7 Days Qty: 28 RF: 0 lidocaine [Lidoderm] 5 % adhesive patch,medicated 1 patch topical DAILY Qty: 15 RF: 0 ibuprofen 600 mg tablet 600 mg PO Q8H PRN (Reason: pain) Qty: 15 RF: 0 cyclobenzaprine 10 mg tablet 10 mg PO TID PRN (Reason: muscle spasm) Qty: 8 RF: 0 lidocaine [Lidoderm] 5 % adhesive patch,medicated 1 patch topical DAILY PRN (Reason: pain) Qty: 1 RF: 0 ibuprofen 400 mg tablet 400 mg PO Q6H PRN (Reason: pain) Qty: 20 RF: 0 omeprazole 40 mg capsule,delayed release(DR/EC) 40 mg PO DAILY Qty: 20 RF: 0 sucralfate [Carafate] 1 gram tablet 1 g PO BID Qty: 30 RF: 0 mupirocin 2 % ointment 1 appl topical BID Qty: 15 RF: 0 omeprazole 20 mg capsule,delayed release(DR/EC) 20 mg PO DAILY Qty: 30 RF: 0 PNV no.170-iron fum-folic acid 27 mg iron- 1 mg tablet 1 tab PO DAILY Qty: 30 RF: 0 Atarax 100 mg Tablet 100 mg PO NEEDED PRN (Reason: Anxiety) RF: 0 hydrocortisone [Anusol-HC] 2.5 % cream with perineal applicator 1 applic MD BEDTIME PRN (Reason: pain) Qty: 30 RF: 0 polyethylene glycol 3350 [Miralax] 17 gram/dose powder 17 g PO DAILY Qty: 119 RF: 0 cyclobenzaprine 10 mg tablet 10 mg PO TID PRN (Reason: muscle spasm) Qty: 30 RF: 0 tramadol 50 mg tablet 50 mg PO Q8H PRN (Reason: pain) Qty: 12 RF: 0 cyclobenzaprine 5 mg tablet 5 mg PO TID PRN (Reason: muscle spasm) Qty: 5 RF: 0 cyclobenzaprine 10 mg tablet 10 mg PO TID PRN (Reason: muscle spasm) Qty: 20 RF: 0 ketorolac 10 mg tablet 10 mg PO QID 5 Days Qty: 20 RF: 0 methocarbamol [Robaxin-750] 750 mg tablet 750 mg PO Q8H PRN (Reason: pain, severe) Qty: 10 RF: 0 acetaminophen [Tylenol Extra Strength] 500 mg tablet 500 mg PO Q6H PRN (Reason: pain or fever) Qty: 20 RF: 0 lidocaine [Lidoderm] 5 % adhesive patch,medicated 1 patch topical DAILY MDD remove after 12 hours PRN (Reason: pain) Qty: 30 RF: 0 naproxen 500 mg tablet 500 mg PO BID PRN (Reason: pain) 10 Days Qty: 20 RF: 0 cyclobenzaprine 10 mg tablet 10 mg PO TID PRN (Reason: muscle spasm) Qty: 14 RF: 0 lidocaine 4 % adhesive patch,medicated 1 patch topical DAILY PRN (Reason: pain) Qty: 10 RF: 0 ibuprofen 600 mg tablet 600 mg PO Q6H PRN (Reason: pain) Qty: 30 RF: 0
[2020-12-27] MEDS: Lidocaine HCl Viscous 2 % 15 ML SOLUTION PO (07:47)
[2020-12-27] MEDS: PHENobarb/Hyoscy/Atropine/Scop 10 ML ELIXIR PO (07:47)
[2020-12-27] MEDS: Magnesium Hydrox/Alum Hydrox 30 ML ORAL.SUSP PO (07:47)
== END 2020-12-27 08:03 | disposition home or self-care (01) ==
PROVIDERS: Emergency Provider Emergency Medicine Emergency Medical Services
DX: M54.5 Low back pain (principal); K29.20 Alcoholic gastritis without bleeding; M79.602 Pain in left arm; R11.10 Vomiting, unspecified; F11.90 Opioid use, unspecified, uncomplicated; F14.90 Cocaine use, unspecified, uncomplicated; F17.200 Nicotine dependence, unspecified, uncomplicated; Z79.899 Other long term (current) drug therapy; Z71.6 Tobacco abuse counseling
CPT/HCPCS: 99283

== ENCOUNTER 2021-01-02 05:32 | Emergency (ER) | payer OTHER, SELFPAY ==
--- NOTE | ~2021-01-02 | US_ITS ---
EXAMINATION: US ABDOMEN LIMITED CLINICAL INFORMATION: Right upper quadrant pain.. COMPARISON: Abdominal radiograph 08/19/2020. TECHNIQUE: Real-time imaging of the right upper quadrant abdominal viscera. FINDINGS: PANCREAS: Normal. LIVER: Normal. The liver is normal in size. The liver contour is normal. Parenchymal echogenicity is normal. No focal hepatic lesion. There is no intrahepatic biliary duct dilatation seen. GALLBLADDER: Normal. The gallbladder is physiologically distended without evidence of stones, sludge, polyps, wall thickening or pericholecystic fluid. COMMON BILE DUCT: Normal in caliber measuring 0.3 cm in diameter. RIGHT KIDNEY: Normal. No hydronephrosis. No renal calculi or focal parenchymal lesions. The kidney measures 11.2 cm in maximum dimension. FREE FLUID: None. US/US abdomen limited IMPRESSION: Normal right upper quadrant abdominal ultrasound. No cholelithiasis. Normal appearance of the gallbladder. No biliary duct dilatation.
[2021-01-02 05:47] VITALS: BP 108/59; PULSE 76; RESP 16; TEMP 36.6; O2SAT 98; BMI 21.2
--- NOTE | 2021-01-02 06:38 | ED.ABDPAIN ---
HPI - Abdominal Pain General Chief Complaint: Abdominal Pain Stated Complaint: ABD PAIN Time Seen by Provider: 01/02/21 06:38 Source: patient Mode of arrival: ambulatory Limitations: no limitations History of Present Illness HPI narrative: 35 yo male with repeat visits for upper abdominal pain has not had recent labs or US/CT for this, he is eating poorly notes pain with spicy and fried foods now notes after eating fried chicken and fried porkchops he has RUQ pain and vomiting MD elicited complaint: abdominal pain Onset (ago): day(s) (3) Pain Consistency: intermittent Location: epigastric and RUQ Severity: moderate Quality: stabbing Radiation: none Migration to: no migration Exacerbating factors: eating Relieving factors: nothing Context: history of similar episodes Associated symptoms: nausea and vomiting Related Data Home Medications Medication Instructions Recorded Confirmed hydroxyzine HCl [Atarax] 100 mg PO NEEDED PRN 08/03/20 08/03/20 Previous Rx's Medication Instructions Recorded hydrocortisone [Anusol-HC] 1 applic DC BEDTIME PRN #30 g 08/13/20 polyethylene glycol 3350 [Miralax] 17 g PO DAILY #119 g 08/13/20 cyclobenzaprine 10 mg PO TID PRN #30 tab 08/15/20 tramadol 50 mg PO Q8H PRN #12 tab 08/15/20 ketorolac 10 mg PO Q6H PRN 5 Days #20 tab 08/17/20 cane #1 ea 09/01/20 cyclobenzaprine 5 mg PO TID PRN #10 tab 09/01/20 naproxen 500 mg PO BID PRN #14 tab 09/01/20 cyclobenzaprine 5 mg PO TID PRN #5 tab 09/08/20 cyclobenzaprine 10 mg PO BEDTIME PRN #3 tab 09/17/20 cyclobenzaprine 10 mg PO TID PRN #20 tab 09/22/20 ketorolac 10 mg PO QID 5 Days #20 tab 09/22/20 cephalexin [Keflex] 500 mg PO QID 7 Days #28 cap 09/26/20 doxycycline monohydrate 100 mg PO BID 7 Days #14 cap 09/26/20 cyclobenzaprine 10 mg PO TID PRN #8 tab 09/29/20 ibuprofen 600 mg PO Q8H PRN #15 tab 09/29/20 lidocaine [Lidoderm] 1 patch TOPICAL DAILY #15 ea 09/29/20 acetaminophen [Tylenol Extra 500 mg PO Q6H PRN #20 tab 10/04/20 Strength] lidocaine [Lidoderm] 1 patch TOPICAL DAILY PRN #30 ea 10/04/20 MDD remove after 12 hours methocarbamol [Robaxin-750] 750 mg PO Q8H PRN #10 tab 10/04/20 naproxen 500 mg PO BID PRN 10 Days #20 tab 10/04/20 ibuprofen 400 mg PO Q6H PRN #20 tab 10/30/20 lidocaine [Lidoderm] 1 patch TOPICAL DAILY PRN #1 ea 10/30/20 omeprazole 40 mg PO DAILY #20 cap 11/04/20 sucralfate [Carafate] 1 g PO BID #30 tab 11/04/20 mupirocin 1 appl TOPICAL BID #15 g 12/04/20 cyclobenzaprine 10 mg PO TID PRN #14 tab 12/07/20 ibuprofen 600 mg PO Q6H PRN #30 tab 12/07/20 lidocaine 1 patch TOPICAL DAILY PRN #10 ea 12/07/20 PNV no.170-iron fum-folic acid 1 tab PO DAILY #30 tab 12/15/20 omeprazole 20 mg PO DAILY #30 cap 12/15/20 cyclobenzaprine 10 mg PO TID PRN #20 tab 12/27/20 lidocaine 1 patch TOPICAL Q24H #15 ea 12/27/20 ondansetron 4 mg PO Q8H PRN #20 tab 01/02/21 Allergies Allergy/AdvReac Type Severity Reaction Status Date / Time Penicillins [PCN] Allergy Mild RASH Verified 10/30/20 09:16 silver AdvReac Intermediate rash Verified 10/30/20 09:16 [From TEGADERM AG MESH] Review of Systems Review of Systems Constitutional : No Weight loss, No Fever, No Chills ENT/Mouth : No sore throat, No Rhinorrhea Eyes: No Swelling, No Redness Cardiovascular : No Chest Pain, No SOB, NoEdema Respiratory : No Cough, No Sputum, No Wheezing Gastrointestinal : Positive Nausea, Positive Vomiting, no Diarrhea, positive abdominal Pain, No Hematochezia, No Melena Genitourinary : No Dysuria, No Urinary Frequency, No Hematuria, No Urgency Musculoskeletal : No joint pain, No Myalgias, No Joint Swelling Skin : No Skin Lesions, No rash Neuro : No Weakness, No Numbness, No Dizziness, No Headache Psych : No Anxiety/Panic, No Depression Heme/Lymph: No Bruising, No Lymphadenopathy Endocrine : No Polyuria, No Polydipsia All other systems reviewed and are negative. Physical Exam Vital Signs: Vital Signs: Last Vital Signs Temp 98 F 01/02/21 05:47 Pulse 76 01/02/21 05:47 Resp 16 01/02/21 05:47 BP 108/59 L 01/02/21 05:47 Pulse Ox 98 01/02/21 05:47 Body Mass Index 21.2 Appearance: Alert. Oriented X3. No acute distress. Eyes: Pupils equal, round and reactive to light. ENT: Pharynx normal. Neck: Normal inspection. Neck supple. CVS: Normal heart rate and rhythm. Pulses normal. Respiratory: No respiratory distress. Breath sounds normal. Abdomen: Soft and moderate RUQ and epigastric pain Skin: Skin warm and dry. Normal skin color. Normal skin turgor. Extremities: No lower extremity edema. No calf ttp Neuro: Oriented X 3. No motor deficit. No sensory deficit. Course Course Course Narrative: wants to leave mild elevation in LFTs - stable for DC at this time MDM - Abdominal Pain MDM Narrative Medical decision making narrative: 35 yo male with worsening RUQ and epigastric pain after eating fried foods at this time will need labs, US to r/o GB disease, dispo per results and findings. Lab Data Result diagrams: 01/02/21 06:56 01/02/21 06:56 Labs: Lab Results 01/02/21 01/02/21 01/02/21 Range/Units 06:56 06:56 06:56 WBC 9.1 (4.8-10.8) X10*3/uL RBC 4.36 L (4.60-5.80) X10*6/uL Hgb 14.6 (14.0-18.0) g/dl Hct 43.7 (42-52) % MCV 100.2 H (80-98) fL MCH 33.5 H (27.0-33.0) pg MCHC 33.4 (31.0-36.0) g/dl RDW 12.6 (11.0-16.0) % Plt Count 196 (160-400) X10*3/uL MPV 9.9 (9.4-12.4) fL Immature Gran % (Auto) 0.3 (0.0-0.4) % Neut % (Auto) 64.4 (45-73) % Lymph % (Auto) 25.4 (20-40) % [place] % (Auto) 5.4 (2-11) % Eos % (Auto) 4.2 H (0-4) % Baso % (Auto) 0.3 (0-2) % Lymph # (Auto) 2.3 (1.2-4.9) X10*3/uL [place] # (Auto) 0.5 (0.1-1.2) X10*3/uL Eos # (Auto) 0.4 (0.0-0.4) X10*3/uL Baso # (Auto) 0.0 (0.0-0.2) X10*3/uL Abs Immat Gran (auto) 0.03 (0.00-0.03) X10*3/uL Absolute Neuts (auto) 5.9 (2.0-8.3) X10*3/uL Absolute Nucleated RBC 0.000 (0.0-0.012) X10*3/uL Nucleated RBC % (auto) 0.0 (0.0-0.2) /100WBC Hold Blue Top SEE NOTE Sodium 140 (135-145) mmol/L Potassium 4.1 (3.3-5.1) mmol/L Chloride 103 (96-108) mmol/L Carbon Dioxide 30 H (22-29) mmol/L Anion Gap 11 L (12-20) BUN 10 (9-16) mg/dL Creatinine 0.97 (0.5-1.4) mg/dL Estim Creat Clear Calc 95.4 Estimated GFR > 60 Random Glucose 88 (60-115) mg/dL Calcium 8.7 (8.4-10.2) mg/dL Magnesium 1.9 (1.6-2.6) mg/dL Total Bilirubin 0.5 (0.0-1.0) mg/dL Direct Bilirubin 0.2 (0.0-0.5) mg/dL AST 59 H (5-37) U/L ALT 99 H (0-40) U/L Alkaline Phosphatase 64 (39-117) U/L Total Protein 6.9 (6.5-8.0) g/dL Albumin 4.4 (3.5-5.0) g/dL Lipase 25 (8-78) U/L Discharge Plan Discharge Clinical Impression: Abdominal pain Qualifiers: Abdominal location: epigastric Qualified Code(s): R10.13 - Epigastric pain Gastritis Qualifiers: Gastritis type: unspecified gastritis Chronicity: chronic Gastritis bleeding: without bleeding Qualified Code(s): K29.50 - Unspecified chronic gastritis without bleeding Patient Disposition: Home, Self-Care Instructions: Gastritis (ED) Additional Instructions: return to ED for any worsening symptoms or concerns Prescriptions: New ondansetron 4 mg tablet,disintegrating 4 mg PO Q8H PRN (Reason: nausea and vomiting) Qty: 20 RF: 0 No Action ketorolac 10 mg tablet 10 mg PO Q6H PRN (Reason: pain) 5 Days Qty: 20 RF: 0 naproxen 500 mg tablet 500 mg PO BID PRN (Reason: pain) Qty: 14 RF: 0 cyclobenzaprine 5 mg tablet 5 mg PO TID PRN (Reason: muscle spasm) Qty: 10 RF: 0 (DME) cane Device See Rx Instructions .ROUTE .MEDSUPPLY Qty: 1 RF: 0 cyclobenzaprine 10 mg tablet 10 mg PO BEDTIME PRN (Reason: muscle spasm) Qty: 3 RF: 0 doxycycline monohydrate 100 mg capsule 100 mg PO BID 7 Days Qty: 14 RF: 0 cephalexin [Keflex] 500 mg capsule 500 mg PO QID 7 Days Qty: 28 RF: 0 lidocaine [Lidoderm] 5 % adhesive patch,medicated 1 patch topical DAILY Qty: 15 RF: 0 ibuprofen 600 mg tablet 600 mg PO Q8H PRN (Reason: pain) Qty: 15 RF: 0 cyclobenzaprine 10 mg tablet 10 mg PO TID PRN (Reason: muscle spasm) Qty: 8 RF: 0 lidocaine [Lidoderm] 5 % adhesive patch,medicated 1 patch topical DAILY PRN (Reason: pain) Qty: 1 RF: 0 ibuprofen 400 mg tablet 400 mg PO Q6H PRN (Reason: pain) Qty: 20 RF: 0 omeprazole 40 mg capsule,delayed release(DR/EC) 40 mg PO DAILY Qty: 20 RF: 0 sucralfate [Carafate] 1 gram tablet 1 g PO BID Qty: 30 RF: 0 mupirocin 2 % ointment 1 appl topical BID Qty: 15 RF: 0 omeprazole 20 mg capsule,delayed release(DR/EC) 20 mg PO DAILY Qty: 30 RF: 0 PNV no.170-iron fum-folic acid 27 mg iron- 1 mg tablet 1 tab PO DAILY Qty: 30 RF: 0 cyclobenzaprine 10 mg tablet 10 mg PO TID PRN (Reason: muscle pain or spasm) Qty: 20 RF: 0 lidocaine 5 % adhesive patch,medicated 1 patch topical Q24H Qty: 15 RF: 0 Atarax 100 mg Tablet 100 mg PO NEEDED PRN (Reason: Anxiety) RF: 0 hydrocortisone [Anusol-HC] 2.5 % cream with perineal applicator 1 applic DC BEDTIME PRN (Reason: pain) Qty: 30 RF: 0 polyethylene glycol 3350 [Miralax] 17 gram/dose powder 17 g PO DAILY Qty: 119 RF: 0 cyclobenzaprine 10 mg tablet 10 mg PO TID PRN (Reason: muscle spasm) Qty: 30 RF: 0 tramadol 50 mg tablet 50 mg PO Q8H PRN (Reason: pain) Qty: 12 RF: 0 cyclobenzaprine 5 mg tablet 5 mg PO TID PRN (Reason: muscle spasm) Qty: 5 RF: 0 cyclobenzaprine 10 mg tablet 10 mg PO TID PRN (Reason: muscle spasm) Qty: 20 RF: 0 ketorolac 10 mg tablet 10 mg PO QID 5 Days Qty: 20 RF: 0 methocarbamol [Robaxin-750] 750 mg tablet 750 mg PO Q8H PRN (Reason: pain, severe) Qty: 10 RF: 0 acetaminophen [Tylenol Extra Strength] 500 mg tablet 500 mg PO Q6H PRN (Reason: pain or fever) Qty: 20 RF: 0 lidocaine [Lidoderm] 5 % adhesive patch,medicated 1 patch topical DAILY MDD remove after 12 hours PRN (Reason: pain) Qty: 30 RF: 0 naproxen 500 mg tablet 500 mg PO BID PRN (Reason: pain) 10 Days Qty: 20 RF: 0 cyclobenzaprine 10 mg tablet 10 mg PO TID PRN (Reason: muscle spasm) Qty: 14 RF: 0 lidocaine 4 % adhesive patch,medicated 1 patch topical DAILY PRN (Reason: pain) Qty: 10 RF: 0 ibuprofen 600 mg tablet 600 mg PO Q6H PRN (Reason: pain) Qty: 30 RF: 0 PMFSH Past Medical History Medical History Contusion Foot drop, right foot Heart murmur Schizophrenia Surgical History No pertinent past surgical history Social History Social History Alcohol intake: current Alcohol intake frequency: 0-2 drinks per day Alcohol type: beer and hard liquor Smoking Status: Current every day smoker Substance Use Type: Crack/Cocaine and Heroin Advance Directives: No Advance Directives Information Provided: No
--- NOTE | 2021-01-02 06:40 | PC.NURSE ---
AT BEDSIDE EVALUATING PATIENT.
[2021-01-02 07:02] LABS: Basophils Percent Auto 0.3 % (0-2); Eosinophils Absolute Auto 0.4 X10*3/uL (0.0-0.4); Eosinophils Percent Auto 4.2 % (0-4); Hematocrit 43.7 % (42-52); Hemoglobin 14.6 g/dl (14.0-18.0); Imm Gran Abs Auto 0.03 X10*3/uL (0.00-0.03); Imm Gran Pct Auto 0.3 % (0.0-0.4); Lymphocytes Absolute Auto 2.3 X10*3/uL (1.2-4.9); Lymphocytes Percent Auto 25.4 % (20-40); MANUAL DIFF FLAG NO; Mean Corpuscular HGB Conc 33.4 g/dl (31.0-36.0); Mean Corpuscular Hemoglobin 33.5 pg (27.0-33.0); Mean Corpuscular Volume 100.2 fL (80-98); Mean Platelet Volume 9.9 fL (9.4-12.4); Monocytes Absolute Auto 0.5 X10*3/uL (0.1-1.2); Monocytes Percent Auto 5.4 % (2-11); Neutrophils Absolute Auto 5.9 X10*3/uL (2.0-8.3); Neutrophils Percent Auto 64.4 % (45-73); Platelet Count 196 X10*3/uL (160-400); Red Blood Count 4.36 X10*6/uL (4.60-5.80); Red Cell Distribution Width 12.6 % (11.0-16.0); White Blood Count 9.1 X10*3/uL (4.8-10.8)
[2021-01-02] MEDS: ondansetron HCL 4 MG/2 ML VIAL IVPUSH (07:05)
[2021-01-02] MEDS: 0.9 % Sodium Chloride 1,000 ML 999 ML IVCONT (07:05)
[2021-01-02] MEDS: Famotidine/PF 20 MG/2 ML VIAL IVPUSH (07:06)
[2021-01-02] MEDS: Ketorolac Tromethamine 30 MG/ML VIAL IVPUSH (07:06)
--- NOTE | 2021-01-02 07:09 | PC.NURSE ---
LAYING ON STRETCHER. WATCHING TV. AWARE OF NPO STATUS
--- NOTE | 2021-01-02 07:51 | PC.NURSE ---
PT REQUESTING CRACKERS AND LAXMI WHARTON. REMINDED OF NPO STATUS
[2021-01-02 07:57] LABS: Alanine Aminotransferase 99 U/L (0-40); Albumin Level 4.4 g/dL (3.5-5.0); Alkaline Phosphatase 64 U/L (39-117); Anion Gap 11 (12-20); Aspartate Amino Transferase 59 U/L (5-37); Bilirubin Direct 0.2 mg/dL (0.0-0.5); Bilirubin Total 0.5 mg/dL (0.0-1.0); Blood Urea Nitrogen 10 mg/dL (9-16); Calcium 8.7 mg/dL (8.4-10.2); Carbon Dioxide 30 mmol/L (22-29); Chloride 103 mmol/L (96-108); Creatinine Clr Calc Pharmacy 95.4; Estimated Glomerular Filt Rate > 60; Glucose Random 88 mg/dL (60-115); Lipase 25 U/L (8-78); Magnesium 1.9 mg/dL (1.6-2.6); Potassium 4.1 mmol/L (3.3-5.1); Sodium 140 mmol/L (135-145); Total Protein 6.9 g/dL (6.5-8.0)
== END 2021-01-02 08:38 | disposition home or self-care (01) ==
PROVIDERS: Emergency Provider Emergency Medicine
DX: K29.50 Unspecified chronic gastritis without bleeding (principal); R10.11 Right upper quadrant pain; F17.200 Nicotine dependence, unspecified, uncomplicated; F12.90 Cannabis use, unspecified, uncomplicated
CPT/HCPCS: 36415; 76705; 80048; 80076; 83690; 83735; 85025; 96361; 96374; 96375; 99283; J1885; J2405

== ENCOUNTER 2021-01-05 02:25 | Emergency (ER) | payer OTHER, SELFPAY ==
--- NOTE | ~2021-01-05 | XR_ITS ---
EXAMINATION: XR CHEST CLINICAL INFORMATION: Pain COMPARISON: 02/22/2020 TECHNIQUE: Frontal view of the chest was obtained. FINDINGS: Lung volumes are symmetric. No focal consolidation is seen. No evidence of pneumothorax, pleural effusion, or pulmonary edema. The cardiomediastinal contour is unremarkable. No acute osseous findings are seen. XR/XR chest 1V IMPRESSION: No acute cardiopulmonary findings.
[2021-01-05 02:50] VITALS: BP 114/63; PULSE 86; RESP 18; TEMP 36.9; O2SAT 96; BMI 22.8
--- NOTE | 2021-01-05 02:50 | ED.CHESTPAIN ---
HPI - Chest Pain General Chief Complaint: General Medical Stated Complaint: Chest wall pain Time Seen by Provider: 01/05/21 02:50 Source: patient Mode of arrival: ambulatory Limitations: no limitations History of Present Illness HPI narrative: CWP since coughing yesterday while smoking THC complaint: chest pain Onset (ago): day(s) (1) Timing of current episode: constant Prior episodes: Yes Onset: associated with drug use Pain location: substernal Pain radiation: none Severity: mild Quality: aching Relieving factors: nothing Exacerbating factors: palpation Treatment prior to arrival: none Related Data Home Medications Medication Instructions Recorded Confirmed hydroxyzine HCl [Atarax] 100 mg PO NEEDED PRN 08/03/20 08/03/20 Previous Rx's Medication Instructions Recorded hydrocortisone [Anusol-HC] 1 applic VA BEDTIME PRN #30 g 08/13/20 polyethylene glycol 3350 [Miralax] 17 g PO DAILY #119 g 08/13/20 cyclobenzaprine 10 mg PO TID PRN #30 tab 08/15/20 tramadol 50 mg PO Q8H PRN #12 tab 08/15/20 ketorolac 10 mg PO Q6H PRN 5 Days #20 tab 08/17/20 cane #1 ea 09/01/20 cyclobenzaprine 5 mg PO TID PRN #10 tab 09/01/20 naproxen 500 mg PO BID PRN #14 tab 09/01/20 cyclobenzaprine 5 mg PO TID PRN #5 tab 09/08/20 cyclobenzaprine 10 mg PO BEDTIME PRN #3 tab 09/17/20 cyclobenzaprine 10 mg PO TID PRN #20 tab 09/22/20 ketorolac 10 mg PO QID 5 Days #20 tab 09/22/20 cephalexin [Keflex] 500 mg PO QID 7 Days #28 cap 09/26/20 doxycycline monohydrate 100 mg PO BID 7 Days #14 cap 09/26/20 cyclobenzaprine 10 mg PO TID PRN #8 tab 09/29/20 ibuprofen 600 mg PO Q8H PRN #15 tab 09/29/20 lidocaine [Lidoderm] 1 patch TOPICAL DAILY #15 ea 09/29/20 acetaminophen [Tylenol Extra 500 mg PO Q6H PRN #20 tab 10/04/20 Strength] lidocaine [Lidoderm] 1 patch TOPICAL DAILY PRN #30 ea 10/04/20 MDD remove after 12 hours methocarbamol [Robaxin-750] 750 mg PO Q8H PRN #10 tab 10/04/20 naproxen 500 mg PO BID PRN 10 Days #20 tab 10/04/20 ibuprofen 400 mg PO Q6H PRN #20 tab 10/30/20 lidocaine [Lidoderm] 1 patch TOPICAL DAILY PRN #1 ea 10/30/20 omeprazole 40 mg PO DAILY #20 cap 11/04/20 sucralfate [Carafate] 1 g PO BID #30 tab 11/04/20 mupirocin 1 appl TOPICAL BID #15 g 12/04/20 cyclobenzaprine 10 mg PO TID PRN #14 tab 12/07/20 ibuprofen 600 mg PO Q6H PRN #30 tab 12/07/20 lidocaine 1 patch TOPICAL DAILY PRN #10 ea 12/07/20 PNV no.170-iron fum-folic acid 1 tab PO DAILY #30 tab 12/15/20 omeprazole 20 mg PO DAILY #30 cap 12/15/20 cyclobenzaprine 10 mg PO TID PRN #20 tab 12/27/20 lidocaine 1 patch TOPICAL Q24H #15 ea 12/27/20 ondansetron 4 mg PO Q8H PRN #20 tab 01/02/21 Allergies Allergy/AdvReac Type Severity Reaction Status Date / Time Penicillins [PCN] Allergy Mild RASH Verified 10/30/20 09:16 silver AdvReac Intermediate rash Verified 10/30/20 09:16 [From TEGADERM AG MESH] Review of Systems Review of Systems: Constitutional : No Weight loss, No Fever, No Chills ENT/Mouth : No sore throat, No Rhinorrhea Eyes: No Eye Pain, No Swelling Cardiovascular : pos Chest Pain, no SOB, no Dyspnea on Exertion, No Orthopnea, No Edema, No Palpitations Respiratory : No Cough, No Sputum Gastrointestinal : no Nausea, No Vomiting, No Diarrhea, No abdominal Pain, No Hematochezia, No Melena Genitourinary : No Dysuria, No Urinary Frequency Musculoskeletal : No joint pain, No Myalgias, No Joint Swelling Skin : No Skin Lesions, No rash Neuro : No Weakness, No Numbness, No Dizziness, No Headache Psych : No Anxiety/Panic, No Depression Heme/Lymph: No Bruising, No Lymphadenopathy Endocrine : No Polyuria, No Polydipsia All other systems reviewed and are negative [facility] Past Medical History Attestation statement: The following information was validated with the patient. Medical History Contusion Foot drop, right foot Heart murmur Schizophrenia Surgical History No pertinent past surgical history Social History Social History Alcohol intake: current Alcohol intake frequency: 0-2 drinks per day Alcohol type: beer and hard liquor Smoking Status: Current every day smoker Smoked in Last 30 Days: Yes Use of substances other than those prescribed or required for medical reasons: Yes Substance Use Type: Marijuana Substance Use Frequency: Daily Last Used Substance: Hours (ago) Any prior treatment program specific to substance use: No Advance Directives: No Advance Directives Information Provided: No Physical Exam Vital Signs: Vital Signs: Last Vital Signs Temp 98.5 F 01/05/21 02:55 Pulse 83 01/05/21 02:55 Resp 18 01/05/21 02:55 BP 106/64 01/05/21 02:55 Pulse Ox 96 01/05/21 02:55 Body Mass Index 22.8 Appearance: Alert. Oriented X3. No acute distress. strong odor of THC Eyes: Pupils equal, round and reactive to light. blood shot ENT: Pharynx normal. Neck: Normal inspection. Neck supple. CVS: Normal heart rate and rhythm. Pulses normal. Chest: reproduceable CWP with palpation of sternum Respiratory: No respiratory distress. Breath sounds normal. Abdomen: Soft and nontender. Skin: Skin warm and dry. Normal skin color. Normal skin turgor. Extremities: No lower extremity edema. No calf ttp Neuro: Oriented X 3. No motor deficit. No sensory deficit. MDM - Chest Pain MDM Narrative Medical decision making narrative: 35 yo male with frequent ED visits for various complaints today c/o reproduceable CWP after smoking THC - no cocaine reported, he is PERC negative it seems MSK in nature doubt ACS, CXR ordered for pneumomediastinum it seems mostly MSK Discharge Plan Discharge Clinical Impression: Chest wall pain Patient Disposition: Home, Self-Care Instructions: Chest Wall Pain (ED) Additional Instructions: return to ED for any worsening symptoms or concerns Prescriptions: No Action ketorolac 10 mg tablet 10 mg PO Q6H PRN (Reason: pain) 5 Days Qty: 20 RF: 0 naproxen 500 mg tablet 500 mg PO BID PRN (Reason: pain) Qty: 14 RF: 0 cyclobenzaprine 5 mg tablet 5 mg PO TID PRN (Reason: muscle spasm) Qty: 10 RF: 0 (DME) cane Device See Rx Instructions .ROUTE .MEDSUPPLY Qty: 1 RF: 0 cyclobenzaprine 10 mg tablet 10 mg PO BEDTIME PRN (Reason: muscle spasm) Qty: 3 RF: 0 doxycycline monohydrate 100 mg capsule 100 mg PO BID 7 Days Qty: 14 RF: 0 cephalexin [Keflex] 500 mg capsule 500 mg PO QID 7 Days Qty: 28 RF: 0 lidocaine [Lidoderm] 5 % adhesive patch,medicated 1 patch topical DAILY Qty: 15 RF: 0 ibuprofen 600 mg tablet 600 mg PO Q8H PRN (Reason: pain) Qty: 15 RF: 0 cyclobenzaprine 10 mg tablet 10 mg PO TID PRN (Reason: muscle spasm) Qty: 8 RF: 0 lidocaine [Lidoderm] 5 % adhesive patch,medicated 1 patch topical DAILY PRN (Reason: pain) Qty: 1 RF: 0 ibuprofen 400 mg tablet 400 mg PO Q6H PRN (Reason: pain) Qty: 20 RF: 0 omeprazole 40 mg capsule,delayed release(DR/EC) 40 mg PO DAILY Qty: 20 RF: 0 sucralfate [Carafate] 1 gram tablet 1 g PO BID Qty: 30 RF: 0 mupirocin 2 % ointment 1 appl topical BID Qty: 15 RF: 0 omeprazole 20 mg capsule,delayed release(DR/EC) 20 mg PO DAILY Qty: 30 RF: 0 PNV no.170-iron fum-folic acid 27 mg iron- 1 mg tablet 1 tab PO DAILY Qty: 30 RF: 0 cyclobenzaprine 10 mg tablet 10 mg PO TID PRN (Reason: muscle pain or spasm) Qty: 20 RF: 0 lidocaine 5 % adhesive patch,medicated 1 patch topical Q24H Qty: 15 RF: 0 ondansetron 4 mg tablet,disintegrating 4 mg PO Q8H PRN (Reason: nausea and vomiting) Qty: 20 RF: 0 Atarax 100 mg Tablet 100 mg PO NEEDED PRN (Reason: Anxiety) RF: 0 hydrocortisone [Anusol-HC] 2.5 % cream with perineal applicator 1 applic VA BEDTIME PRN (Reason: pain) Qty: 30 RF: 0 polyethylene glycol 3350 [Miralax] 17 gram/dose powder 17 g PO DAILY Qty: 119 RF: 0 cyclobenzaprine 10 mg tablet 10 mg PO TID PRN (Reason: muscle spasm) Qty: 30 RF: 0 tramadol 50 mg tablet 50 mg PO Q8H PRN (Reason: pain) Qty: 12 RF: 0 cyclobenzaprine 5 mg tablet 5 mg PO TID PRN (Reason: muscle spasm) Qty: 5 RF: 0 cyclobenzaprine 10 mg tablet 10 mg PO TID PRN (Reason: muscle spasm) Qty: 20 RF: 0 ketorolac 10 mg tablet 10 mg PO QID 5 Days Qty: 20 RF: 0 methocarbamol [Robaxin-750] 750 mg tablet 750 mg PO Q8H PRN (Reason: pain, severe) Qty: 10 RF: 0 acetaminophen [Tylenol Extra Strength] 500 mg tablet 500 mg PO Q6H PRN (Reason: pain or fever) Qty: 20 RF: 0 lidocaine [Lidoderm] 5 % adhesive patch,medicated 1 patch topical DAILY MDD remove after 12 hours PRN (Reason: pain) Qty: 30 RF: 0 naproxen 500 mg tablet 500 mg PO BID PRN (Reason: pain) 10 Days Qty: 20 RF: 0 cyclobenzaprine 10 mg tablet 10 mg PO TID PRN (Reason: muscle spasm) Qty: 14 RF: 0 lidocaine 4 % adhesive patch,medicated 1 patch topical DAILY PRN (Reason: pain) Qty: 10 RF: 0 ibuprofen 600 mg tablet 600 mg PO Q6H PRN (Reason: pain) Qty: 30 RF: 0
[2021-01-05 02:55] VITALS: BP 106/64; PULSE 83; RESP 18; TEMP 36.9; O2SAT 96
--- NOTE | 2021-01-05 04:05 | PC.NURSE ---
pt a&O, no sob or chest pain at this time. pt denies any n/v. pt out of bed to bathroom-no dizziness or lightheadedness. reviewed discharge instructions.
== END 2021-01-05 04:06 | disposition home or self-care (01) ==
PROVIDERS: Emergency Provider Emergency Medicine
DX: R07.89 Other chest pain (principal); F17.200 Nicotine dependence, unspecified, uncomplicated; F12.90 Cannabis use, unspecified, uncomplicated; Z71.6 Tobacco abuse counseling; Z79.899 Other long term (current) drug therapy
CPT/HCPCS: 71045; 99284

== ENCOUNTER 2021-01-08 18:14 | Emergency (ER) | payer OTHER, SELFPAY ==
--- NOTE | 2021-01-08 18:35 | ED_ITS ---
HPI - Overdose General Stated Complaint: OD Time Seen by Provider: 01/08/21 18:29 Source: patient Mode of arrival: EMS Limitations: no limitations History of Present Illness HPI Narrative: Patient is a 35-year-old male who was doing 5 bags of heroin with his friends today when he overdosed, he states his friends gave him Narcan and called 911. Upon arrival to the hospital, patient was conscious, feeling well and during my exam, he was eating dinner. He states he feels fine, denies headache, dizziness, chest pain, shortness of breath, abdominal pain, nausea, vomiting, diarrhea or fevers. He states he would like to go home [place]. When asked if he has any interest in quitting drugs he did say yes. MD complaint: accidental overdose Related Data Home Medications Medication Instructions Recorded Confirmed hydroxyzine HCl [Atarax] 100 mg PO NEEDED PRN 08/03/20 08/03/20 Previous Rx's Medication Instructions Recorded hydrocortisone [Anusol-HC] 1 applic TN BEDTIME PRN #30 g 08/13/20 polyethylene glycol 3350 [Miralax] 17 g PO DAILY #119 g 08/13/20 cyclobenzaprine 10 mg PO TID PRN #30 tab 08/15/20 tramadol 50 mg PO Q8H PRN #12 tab 08/15/20 ketorolac 10 mg PO Q6H PRN 5 Days #20 tab 08/17/20 cane #1 ea 09/01/20 cyclobenzaprine 5 mg PO TID PRN #10 tab 09/01/20 naproxen 500 mg PO BID PRN #14 tab 09/01/20 cyclobenzaprine 5 mg PO TID PRN #5 tab 09/08/20 cyclobenzaprine 10 mg PO BEDTIME PRN #3 tab 09/17/20 cyclobenzaprine 10 mg PO TID PRN #20 tab 09/22/20 ketorolac 10 mg PO QID 5 Days #20 tab 09/22/20 cephalexin [Keflex] 500 mg PO QID 7 Days #28 cap 09/26/20 doxycycline monohydrate 100 mg PO BID 7 Days #14 cap 09/26/20 cyclobenzaprine 10 mg PO TID PRN #8 tab 09/29/20 ibuprofen 600 mg PO Q8H PRN #15 tab 09/29/20 lidocaine [Lidoderm] 1 patch TOPICAL DAILY #15 ea 09/29/20 acetaminophen [Tylenol Extra 500 mg PO Q6H PRN #20 tab 10/04/20 Strength] lidocaine [Lidoderm] 1 patch TOPICAL DAILY PRN #30 ea 10/04/20 MDD remove after 12 hours methocarbamol [Robaxin-750] 750 mg PO Q8H PRN #10 tab 10/04/20 naproxen 500 mg PO BID PRN 10 Days #20 tab 10/04/20 ibuprofen 400 mg PO Q6H PRN #20 tab 10/30/20 lidocaine [Lidoderm] 1 patch TOPICAL DAILY PRN #1 ea 10/30/20 omeprazole 40 mg PO DAILY #20 cap 11/04/20 sucralfate [Carafate] 1 g PO BID #30 tab 11/04/20 mupirocin 1 appl TOPICAL BID #15 g 12/04/20 cyclobenzaprine 10 mg PO TID PRN #14 tab 12/07/20 ibuprofen 600 mg PO Q6H PRN #30 tab 12/07/20 lidocaine 1 patch TOPICAL DAILY PRN #10 ea 12/07/20 PNV no.170-iron fum-folic acid 1 tab PO DAILY #30 tab 12/15/20 omeprazole 20 mg PO DAILY #30 cap 12/15/20 cyclobenzaprine 10 mg PO TID PRN #20 tab 12/27/20 lidocaine 1 patch TOPICAL Q24H #15 ea 12/27/20 ondansetron 4 mg PO Q8H PRN #20 tab 01/02/21 Allergies Allergy/AdvReac Type Severity Reaction Status Date / Time Penicillins [PCN] Allergy Mild RASH Verified 10/30/20 09:16 silver AdvReac Intermediate rash Verified 10/30/20 09:16 [From TEGADERM AG MESH] Review of Systems Review of Systems: Yes all other systems are reviewed and are negative PMFSH Past Medical History Medical History Contusion Foot drop, right foot Heart murmur Schizophrenia Surgical History No pertinent past surgical history Social History Social History Alcohol intake: current Alcohol intake frequency: 0-2 drinks per day Alcohol type: beer and hard liquor Smoking Status: Current every day smoker Substance Use Type: Marijuana Physical Exam Const: General: cooperative, healthy appearing, comfortable, no acute distress and well developed Orientation/consciousness: patient oriented x3 Limitations: no limitations HENMT: Head: Yes normal to inspection Eyes: General: appearance normal, both eyes and all related structures Pupils: Equal, round and reactive pupils present and Pupil size comments bilaterally 2 Neck: Neck: Yes normal visual inspection and Yes full ROM Resp: Effort & Inspection: normal respiratory effort and able to speak in complete sentences Neuro: General: patient oriented x3 Cranial nerves: Yes Equal, round and reactive pupils present Extrem: General: Yes normal to inspection Psych: Appearance: grossly normal Speech and movement: Normal speech and movement present Affect: Blunted affect present Attitude: cooperative Thought content: Normal thought content present Course Course Course Narrative: Patient is a 35-year-old male with a past medical history of schizophrenia who was brought in by ambulance today after he overdosed on heroin and his friends gave him Narcan. Patient has no complaints and is eating dinner. Patient did express interest in quitting drugs so I have the recovery advocate speak with him. Will discharge patient after we observed him for 1 hour, VSS. Discharge Plan Discharge Prescriptions: No Action ketorolac 10 mg tablet 10 mg PO Q6H PRN (Reason: pain) 5 Days Qty: 20 RF: 0 naproxen 500 mg tablet 500 mg PO BID PRN (Reason: pain) Qty: 14 RF: 0 cyclobenzaprine 5 mg tablet 5 mg PO TID PRN (Reason: muscle spasm) Qty: 10 RF: 0 (DME) cane Device See Rx Instructions .ROUTE .MEDSUPPLY Qty: 1 RF: 0 cyclobenzaprine 10 mg tablet 10 mg PO BEDTIME PRN (Reason: muscle spasm) Qty: 3 RF: 0 doxycycline monohydrate 100 mg capsule 100 mg PO BID 7 Days Qty: 14 RF: 0 cephalexin [Keflex] 500 mg capsule 500 mg PO QID 7 Days Qty: 28 RF: 0 lidocaine [Lidoderm] 5 % adhesive patch,medicated 1 patch topical DAILY Qty: 15 RF: 0 ibuprofen 600 mg tablet 600 mg PO Q8H PRN (Reason: pain) Qty: 15 RF: 0 cyclobenzaprine 10 mg tablet 10 mg PO TID PRN (Reason: muscle spasm) Qty: 8 RF: 0 lidocaine [Lidoderm] 5 % adhesive patch,medicated 1 patch topical DAILY PRN (Reason: pain) Qty: 1 RF: 0 ibuprofen 400 mg tablet 400 mg PO Q6H PRN (Reason: pain) Qty: 20 RF: 0 omeprazole 40 mg capsule,delayed release(DR/EC) 40 mg PO DAILY Qty: 20 RF: 0 sucralfate [Carafate] 1 gram tablet 1 g PO BID Qty: 30 RF: 0 mupirocin 2 % ointment 1 appl topical BID Qty: 15 RF: 0 omeprazole 20 mg capsule,delayed release(DR/EC) 20 mg PO DAILY Qty: 30 RF: 0 PNV no.170-iron fum-folic acid 27 mg iron- 1 mg tablet 1 tab PO DAILY Qty: 30 RF: 0 cyclobenzaprine 10 mg tablet 10 mg PO TID PRN (Reason: muscle pain or spasm) Qty: 20 RF: 0 lidocaine 5 % adhesive patch,medicated 1 patch topical Q24H Qty: 15 RF: 0 ondansetron 4 mg tablet,disintegrating 4 mg PO Q8H PRN (Reason: nausea and vomiting) Qty: 20 RF: 0 Atarax 100 mg Tablet 100 mg PO NEEDED PRN (Reason: Anxiety) RF: 0 hydrocortisone [Anusol-HC] 2.5 % cream with perineal applicator 1 applic TN BEDTIME PRN (Reason: pain) Qty: 30 RF: 0 polyethylene glycol 3350 [Miralax] 17 gram/dose powder 17 g PO DAILY Qty: 119 RF: 0 cyclobenzaprine 10 mg tablet 10 mg PO TID PRN (Reason: muscle spasm) Qty: 30 RF: 0 tramadol 50 mg tablet 50 mg PO Q8H PRN (Reason: pain) Qty: 12 RF: 0 cyclobenzaprine 5 mg tablet 5 mg PO TID PRN (Reason: muscle spasm) Qty: 5 RF: 0 cyclobenzaprine 10 mg tablet 10 mg PO TID PRN (Reason: muscle spasm) Qty: 20 RF: 0 ketorolac 10 mg tablet 10 mg PO QID 5 Days Qty: 20 RF: 0 methocarbamol [Robaxin-750] 750 mg tablet 750 mg PO Q8H PRN (Reason: pain, severe) Qty: 10 RF: 0 acetaminophen [Tylenol Extra Strength] 500 mg tablet 500 mg PO Q6H PRN (Reason: pain or fever) Qty: 20 RF: 0 lidocaine [Lidoderm] 5 % adhesive patch,medicated 1 patch topical DAILY MDD remove after 12 hours PRN (Reason: pain) Qty: 30 RF: 0 naproxen 500 mg tablet 500 mg PO BID PRN (Reason: pain) 10 Days Qty: 20 RF: 0 cyclobenzaprine 10 mg tablet 10 mg PO TID PRN (Reason: muscle spasm) Qty: 14 RF: 0 lidocaine 4 % adhesive patch,medicated 1 patch topical DAILY PRN (Reason: pain) Qty: 10 RF: 0 ibuprofen 600 mg tablet 600 mg PO Q6H PRN (Reason: pain) Qty: 30 RF: 0
--- NOTE | 2021-01-08 18:41 | MHC.RECOVSUP ---
? Reason for consult Overdose o Current location: [facility] o Identified substance use concern: Heroin - Overdose - Support ? Intervention: o ATS bed search started/completed/in process o MAT started or to be started o Community resources provided o Harm reduction discussion ? Plan: ? Additional information: Patient was Cooperative And refused service
[2021-01-08 18:48] VITALS: BP 117/90; BP 145/62; PULSE 80; PULSE 88; RESP 16; TEMP 36.8; O2SAT 98; O2SAT 99; BMI 22.8
--- NOTE | 2021-01-08 18:49 | MHC.RECOVSUP ---
? Reason for consult Overdose o Current location: [facility] o Identified substance use concern: Heroin - Overdose ? Additional information: Patient refused service
--- NOTE | 2021-01-08 18:54 | PC.NURSE ---
pt ate 75% of supper.
--- NOTE | 2021-01-08 18:57 | PC.NURSE ---
pt is rude is continuously asking to leave. mlp (cash) aware.
--- NOTE | 2021-01-08 18:58 | PC.NURSE ---
Patient came in with overdose of heroine. Patient states he wants to go home and leave AMA. Explained to patient that he may leave at 1915. Patient is agreeable.
== END 2021-01-08 19:22 | disposition home or self-care (01) ==
LOC: HO.ED 18:55
PROVIDERS: Emergency Provider Emergency Medicine
DX: T40.1X1A Poisoning by heroin, accidental (unintentional), initial encounter (principal); Y92.9 Unspecified place or not applicable; F20.9 Schizophrenia, unspecified; F17.200 Nicotine dependence, unspecified, uncomplicated; F12.90 Cannabis use, unspecified, uncomplicated
CPT/HCPCS: 99283; 99284

== ENCOUNTER 2021-01-16 09:20 | Emergency (ER) | payer OTHER, SELFPAY ==
--- NOTE | ~2021-01-16 | XR_ITS ---
EXAMINATION: XR ELBOW, LEFT CLINICAL INFORMATION: Left shoulder pain COMPARISON: None TECHNIQUE: AP, lateral, and oblique views of the left elbow. FINDINGS: The bones and soft tissues are normal. No fracture or joint effusion. Alignment is anatomic. Joint spaces are maintained. XR/XR elbow LT min 3V IMPRESSION: Normal left elbow.
--- NOTE | ~2021-01-16 | XR_ITS ---
EXAMINATION: XR SHOULDER, LEFT CLINICAL INFORMATION: Left shoulder pain COMPARISON: Radiographs of the left humerus 09/20/2019 TECHNIQUE: AP external rotation, Grashey, scapular Y, and axillary views of the left shoulder. FINDINGS: There is a tiny calcific density along the inferior aspect of the glenoid which may relate to chronic changes/old injury. Arguably this may have been present on prior radiographs 09/20/2000 Otherwise, the bones and soft tissues are normal. No fracture. Glenohumeral and acromioclavicular alignment is anatomic with normal joint space. No abnormal soft tissue calcifications. XR/XR shoulder LT min 2V IMPRESSION: No acute abnormality of the left shoulder.
[2021-01-16 09:38] VITALS: BP 120/64; PULSE 76; RESP 16; TEMP 36.3; O2SAT 97; BMI 22.0
--- NOTE | 2021-01-16 10:44 | ED_ITS ---
HPI - Extremity Problem General Chief complaint: Extremity Injury, Upper Stated complaint: lt arm pain Time Seen by Provider: 01/16/21 09:39 Source: patient Mode of arrival: ambulatory Limitations: no limitations History of Present Illness HPI Narrative: 35-year-old male with a past medical history of substance abuse of alcohol and IV drug usage, chronic mental illness, schizophrenia, heart murmur, hypertension and chronic back pain presenting to the ED with complaint left shoulder/elbow pain after he fell approximately 2 weeks ago. Denies head injury or loss of consciousness or being on any blood thinners or any other injuries complaints or concerns at this time. Complaint: extremity pain Onset (ago): week(s) (Two weeks ago worse today) Pain Consistency: constant Location: left, upper extremity and elbow Quality: aching Radiation: none Relieving factors: nothing Exacerbating factors: range of motion and palpation Associated symptoms: denies other symptoms Related Data Home Medications Medication Instructions Recorded Confirmed hydroxyzine HCl [Atarax] 100 mg PO NEEDED PRN 08/03/20 08/03/20 Previous Rx's Medication Instructions Recorded hydrocortisone [Anusol-HC] 1 applic FL BEDTIME PRN #30 g 08/13/20 polyethylene glycol 3350 [Miralax] 17 g PO DAILY #119 g 08/13/20 cyclobenzaprine 10 mg PO TID PRN #30 tab 08/15/20 tramadol 50 mg PO Q8H PRN #12 tab 08/15/20 ketorolac 10 mg PO Q6H PRN 5 Days #20 tab 08/17/20 cane #1 ea 09/01/20 cyclobenzaprine 5 mg PO TID PRN #10 tab 09/01/20 naproxen 500 mg PO BID PRN #14 tab 09/01/20 cyclobenzaprine 5 mg PO TID PRN #5 tab 09/08/20 cyclobenzaprine 10 mg PO BEDTIME PRN #3 tab 09/17/20 cyclobenzaprine 10 mg PO TID PRN #20 tab 09/22/20 ketorolac 10 mg PO QID 5 Days #20 tab 09/22/20 cephalexin [Keflex] 500 mg PO QID 7 Days #28 cap 09/26/20 doxycycline monohydrate 100 mg PO BID 7 Days #14 cap 09/26/20 cyclobenzaprine 10 mg PO TID PRN #8 tab 09/29/20 ibuprofen 600 mg PO Q8H PRN #15 tab 09/29/20 lidocaine [Lidoderm] 1 patch TOPICAL DAILY #15 ea 09/29/20 acetaminophen [Tylenol Extra 500 mg PO Q6H PRN #20 tab 10/04/20 Strength] lidocaine [Lidoderm] 1 patch TOPICAL DAILY PRN #30 ea 10/04/20 MDD remove after 12 hours methocarbamol [Robaxin-750] 750 mg PO Q8H PRN #10 tab 10/04/20 naproxen 500 mg PO BID PRN 10 Days #20 tab 10/04/20 ibuprofen 400 mg PO Q6H PRN #20 tab 10/30/20 lidocaine [Lidoderm] 1 patch TOPICAL DAILY PRN #1 ea 10/30/20 omeprazole 40 mg PO DAILY #20 cap 11/04/20 sucralfate [Carafate] 1 g PO BID #30 tab 11/04/20 mupirocin 1 appl TOPICAL BID #15 g 12/04/20 cyclobenzaprine 10 mg PO TID PRN #14 tab 12/07/20 ibuprofen 600 mg PO Q6H PRN #30 tab 12/07/20 lidocaine 1 patch TOPICAL DAILY PRN #10 ea 12/07/20 PNV no.170-iron fum-folic acid 1 tab PO DAILY #30 tab 12/15/20 omeprazole 20 mg PO DAILY #30 cap 12/15/20 cyclobenzaprine 10 mg PO TID PRN #20 tab 12/27/20 lidocaine 1 patch TOPICAL Q24H #15 ea 12/27/20 ondansetron 4 mg PO Q8H PRN #20 tab 01/02/21 naloxone [Narcan] 4 mg INTRANASAL Q3M PRN #2 ea 01/08/21 cyclobenzaprine 10 mg PO TID PRN #10 tab 01/16/21 ketorolac 10 mg PO Q8H PRN #10 tab 01/16/21 Allergies Allergy/AdvReac Type Severity Reaction Status Date / Time Penicillins [PCN] Allergy Mild RASH Verified 10/30/20 09:16 silver AdvReac Intermediate rash Verified 10/30/20 09:16 [From TEGADERM AG MESH] Review of Systems Review of Systems: Constitutional : No changes in activity, No lethargy, No recent prior head injury, No agitation, No increased fussiness ENT/Mouth : No Ear Pain, No Nasal discharge/drainage Eyes: No Eye Pain, No Swelling, No Redness, No Foreign Body, No Vision Changes Cardiovascular : No Chest Pain, No SOB Respiratory : No Cough Gastrointestinal : No Nausea, No Vomiting, No abdominal Pain Genitourinary : No Dysuria, No Urinary Frequency, No Urinary Incontinence, No Urgency, No Flank Pain Musculoskeletal : + joint pain, No neck stiffness, No back pain/injury Skin : No lacerations Neuro : No unsteady gait, No Paresthesias, No Loss of Consciousness, No altered mental status, No Headache Yes all other systems are reviewed and are negative REPLACED BY [facility] Past Medical History Attestation statement: The following information was validated with the patient. Medical History Contusion Foot drop, right foot Heart murmur Schizophrenia Surgical History No pertinent past surgical history Social History Social History Alcohol intake: unknown Smoking Status: Current every day smoker Use of substances other than those prescribed or required for medical reasons: Yes Substance Use Type: Heroin and Marijuana Substance Use Frequency: Daily Advance Directives: No Advance Directives Information Provided: No Physical Exam Vital Signs: Vital Signs: Last Vital Signs Temp 97.4 F 01/16/21 09:38 Pulse 76 01/16/21 09:38 Resp 16 01/16/21 09:38 BP 120/64 01/16/21 09:38 Pulse Ox 97 01/16/21 09:38 Body Mass Index 22.0 vital signs have been reviewed as normal and appeared to be correct. Blood pressure normal. Heart rate normal. Respiration rate normal. Temperature normal. Oxygen saturation normal. Appearance: Alert. Oriented X3. No acute distress. Head: Normal external exam. Normocephalic. Atraumatic. Eyes: PERRLA. EOMI. Conjunctiva and sclera normal. Eyelids normal. ENT: Pharynx normal. Uvula midline. Moist mucous membranes. Neck: Normal inspection. Neck supple. FROM. No adenopathy. No meningeal signs. CVS: Normal heart rate and rhythm. Heart sound normal. No murmurs noted. Pulses normal throughout. Respiratory: No respiratory distress. Painless inspiration. Breath sounds normal. No wheezes/rales/rhonchi noted. Chest nontender. No accessory muscle usage noted or decreased air movement noted. Back: Full range of motion noted. Skin: Skin warm and dry. Normal skin color. Normal skin turgor. No rashes/lesions/lacerations noted. Extremities: Patient with tenderness to palpation to anterior aspect of left shoulder. Patient with full range of motion. No laxity noted. No obvious deformities surrounding erythema or signs of infection/fluctuance or induration noted. Patient with mild tenderness to palpation to left elbow joint. No obvious laxity noted. No obvious deformities noted. No signs of infection/fluctuance/erythema/induration noted. Patient has full range of motion to the left elbow joint. No upper/lower extremity edema. Otherwise all other Extremities exhibit normal range of motion and nontender. Neuro: Oriented X 3. No motor deficit. No sensory deficit. Reflexes normal. Course Course Course Narrative: 35-year-old male presenting to the ED after he had a fall approximately 2 weeks ago injuring his left elbow/left shoulder with persistent pain worse today. Imaging obtained and negative for any fractures or any other acute processes. Patient has full range of motion no laxity or obvious deformities. No signs of infection. Will DC home with symptomatic treatment only instructed to return if any new or worsening symptoms and to follow up with primary care provider. Patient understands agrees with this plan. MDM - Extremity (Nontraumatic) Imaging Data Left elbow/left shoulder: Attestation: I personally reviewed and interpreted this imaging study as follows: Radiologist's impression: FINDINGS: The bones and soft tissues are normal. No fracture or joint effusion. Alignment is anatomic. Joint spaces are maintained. XR/XR elbow LT min 3V IMPRESSION: Normal left elbow FINDINGS: There is a tiny calcific density along the inferior aspect of the glenoid which may relate to chronic changes/old injury. Arguably this may have been present on prior radiographs 09/20/2000 Otherwise, the bones and soft tissues are normal. No fracture. Glenohumeral and acromioclavicular alignment is anatomic with normal joint space. No abnormal soft tissue calcifications. XR/XR shoulder LT min 2V IMPRESSION: No acute abnormality of the left shoulder. Discharge Plan Discharge Clinical Impression: Fall Qualifiers: Encounter type: initial encounter Qualified Code(s): W19.XXXA - Unspecified fall, initial encounter Sprain of elbow, left Qualifiers: Encounter type: initial encounter Qualified Code(s): S53.402A - Unspecified sprain of left elbow, initial encounter Sprain of left shoulder joint Qualifiers: Encounter type: initial encounter Shoulder sprain type: unspecified sprain Qualified Code(s): S43.402A - Unspecified sprain of left shoulder joint, initial encounter Patient Disposition: Home, Self-Care Instructions: Elbow Sprain (ED), Shoulder Sprain (ED) Prescriptions: New ketorolac 10 mg tablet 10 mg PO Q8H PRN (Reason: pain) Qty: 10 RF: 0 cyclobenzaprine 10 mg tablet 10 mg PO TID PRN (Reason: muscle spasm) Qty: 10 RF: 0 No Action ketorolac 10 mg tablet 10 mg PO Q6H PRN (Reason: pain) 5 Days Qty: 20 RF: 0 naproxen 500 mg tablet 500 mg PO BID PRN (Reason: pain) Qty: 14 RF: 0 cyclobenzaprine 5 mg tablet 5 mg PO TID PRN (Reason: muscle spasm) Qty: 10 RF: 0 (DME) cane Device See Rx Instructions .ROUTE .MEDSUPPLY Qty: 1 RF: 0 cyclobenzaprine 10 mg tablet 10 mg PO BEDTIME PRN (Reason: muscle spasm) Qty: 3 RF: 0 doxycycline monohydrate 100 mg capsule 100 mg PO BID 7 Days Qty: 14 RF: 0 cephalexin [Keflex] 500 mg capsule 500 mg PO QID 7 Days Qty: 28 RF: 0 lidocaine [Lidoderm] 5 % adhesive patch,medicated 1 patch topical DAILY Qty: 15 RF: 0 ibuprofen 600 mg tablet 600 mg PO Q8H PRN (Reason: pain) Qty: 15 RF: 0 cyclobenzaprine 10 mg tablet 10 mg PO TID PRN (Reason: muscle spasm) Qty: 8 RF: 0 lidocaine [Lidoderm] 5 % adhesive patch,medicated 1 patch topical DAILY PRN (Reason: pain) Qty: 1 RF: 0 ibuprofen 400 mg tablet 400 mg PO Q6H PRN (Reason: pain) Qty: 20 RF: 0 omeprazole 40 mg capsule,delayed release(DR/EC) 40 mg PO DAILY Qty: 20 RF: 0 sucralfate [Carafate] 1 gram tablet 1 g PO BID Qty: 30 RF: 0 mupirocin 2 % ointment 1 appl topical BID Qty: 15 RF: 0 omeprazole 20 mg capsule,delayed release(DR/EC) 20 mg PO DAILY Qty: 30 RF: 0 PNV no.170-iron fum-folic acid 27 mg iron- 1 mg tablet 1 tab PO DAILY Qty: 30 RF: 0 cyclobenzaprine 10 mg tablet 10 mg PO TID PRN (Reason: muscle pain or spasm) Qty: 20 RF: 0 lidocaine 5 % adhesive patch,medicated 1 patch topical Q24H Qty: 15 RF: 0 ondansetron 4 mg tablet,disintegrating 4 mg PO Q8H PRN (Reason: nausea and vomiting) Qty: 20 RF: 0 Narcan 4 mg/actuation spray,non-aerosol 4 mg intranasal Q3M PRN (Reason: opioid overdose) Qty: 2 RF: 0 Atarax 100 mg Tablet 100 mg PO NEEDED PRN (Reason: Anxiety) RF: 0 hydrocortisone [Anusol-HC] 2.5 % cream with perineal applicator 1 applic FL BEDTIME PRN (Reason: pain) Qty: 30 RF: 0 polyethylene glycol 3350 [Miralax] 17 gram/dose powder 17 g PO DAILY Qty: 119 RF: 0 cyclobenzaprine 10 mg tablet 10 mg PO TID PRN (Reason: muscle spasm) Qty: 30 RF: 0 tramadol 50 mg tablet 50 mg PO Q8H PRN (Reason: pain) Qty: 12 RF: 0 cyclobenzaprine 5 mg tablet 5 mg PO TID PRN (Reason: muscle spasm) Qty: 5 RF: 0 cyclobenzaprine 10 mg tablet 10 mg PO TID PRN (Reason: muscle spasm) Qty: 20 RF: 0 ketorolac 10 mg tablet 10 mg PO QID 5 Days Qty: 20 RF: 0 methocarbamol [Robaxin-750] 750 mg tablet 750 mg PO Q8H PRN (Reason: pain, severe) Qty: 10 RF: 0 acetaminophen [Tylenol Extra Strength] 500 mg tablet 500 mg PO Q6H PRN (Reason: pain or fever) Qty: 20 RF: 0 lidocaine [Lidoderm] 5 % adhesive patch,medicated 1 patch topical DAILY MDD remove after 12 hours PRN (Reason: pain) Qty: 30 RF: 0 naproxen 500 mg tablet 500 mg PO BID PRN (Reason: pain) 10 Days Qty: 20 RF: 0 cyclobenzaprine 10 mg tablet 10 mg PO TID PRN (Reason: muscle spasm) Qty: 14 RF: 0 lidocaine 4 % adhesive patch,medicated 1 patch topical DAILY PRN (Reason: pain) Qty: 10 RF: 0 ibuprofen 600 mg tablet 600 mg PO Q6H PRN (Reason: pain) Qty: 30 RF: 0 Referrals: Physician,Unknown [Primary Care Provider] - 2 days (your pcp) Print Language: Armenian
== END 2021-01-16 11:00 | disposition home or self-care (01) ==
PROVIDERS: Emergency Provider Emergency Medicine Emergency Medical Services
DX: S53.402A Unspecified sprain of left elbow, initial encounter (principal); S43.402A Unspecified sprain of left shoulder joint, initial encounter; W19.XXXA Unspecified fall, initial encounter; I10 Essential (primary) hypertension; F20.9 Schizophrenia, unspecified; F11.10 Opioid abuse, uncomplicated; F10.10 Alcohol abuse, uncomplicated; F12.90 Cannabis use, unspecified, uncomplicated; Y93.9 Activity, unspecified; Y92.9 Unspecified place or not applicable; Y99.9 Unspecified external cause status
CPT/HCPCS: 73030; 73080; 99283

== ENCOUNTER 2021-01-18 10:28 | Emergency (ER) | payer OTHER, SELFPAY ==
[2021-01-18 10:45] VITALS: BP 124/70; PULSE 74; RESP 18; TEMP 36.7; O2SAT 98; BMI 22.0
--- NOTE | 2021-01-18 11:32 | PC.NURSE ---
PT GIVEN BUS PASS TO GET TO [facility] IN [place].
--- NOTE | 2021-01-18 11:42 | ED.GENADULT ---
HPI - General Adult General Chief complaint: ETOH/Substance Use Stated complaint: DETOX Time Seen by Provider: 01/18/21 11:41 History of Present Illness HPI narrative: Patient is requesting to go to detox but says he has no transportation and apparently a bed is ready in [place] He denies any recent illness he denies any recent injury or illness and says the only issue is he is hoping we could help him get to the detox He has been regularly abusing heroin cocaine and alcohol Denies any suicidal homicidal thoughts and denies hearing voices or any delusions or hallucinations Related Data Home Medications Medication Instructions Recorded Confirmed hydroxyzine HCl [Atarax] 100 mg PO NEEDED PRN 08/03/20 08/03/20 Previous Rx's Medication Instructions Recorded hydrocortisone [Anusol-HC] 1 applic [place] BEDTIME PRN #30 g 08/13/20 polyethylene glycol 3350 [Miralax] 17 g PO DAILY #119 g 08/13/20 cyclobenzaprine 10 mg PO TID PRN #30 tab 08/15/20 tramadol 50 mg PO Q8H PRN #12 tab 08/15/20 ketorolac 10 mg PO Q6H PRN 5 Days #20 tab 08/17/20 cane #1 ea 09/01/20 cyclobenzaprine 5 mg PO TID PRN #10 tab 09/01/20 naproxen 500 mg PO BID PRN #14 tab 09/01/20 cyclobenzaprine 5 mg PO TID PRN #5 tab 09/08/20 cyclobenzaprine 10 mg PO BEDTIME PRN #3 tab 09/17/20 cyclobenzaprine 10 mg PO TID PRN #20 tab 09/22/20 ketorolac 10 mg PO QID 5 Days #20 tab 09/22/20 cephalexin [Keflex] 500 mg PO QID 7 Days #28 cap 09/26/20 doxycycline monohydrate 100 mg PO BID 7 Days #14 cap 09/26/20 cyclobenzaprine 10 mg PO TID PRN #8 tab 09/29/20 ibuprofen 600 mg PO Q8H PRN #15 tab 09/29/20 lidocaine [Lidoderm] 1 patch TOPICAL DAILY #15 ea 09/29/20 acetaminophen [Tylenol Extra 500 mg PO Q6H PRN #20 tab 10/04/20 Strength] lidocaine [Lidoderm] 1 patch TOPICAL DAILY PRN #30 ea 10/04/20 MDD remove after 12 hours methocarbamol [Robaxin-750] 750 mg PO Q8H PRN #10 tab 10/04/20 naproxen 500 mg PO BID PRN 10 Days #20 tab 10/04/20 ibuprofen 400 mg PO Q6H PRN #20 tab 10/30/20 lidocaine [Lidoderm] 1 patch TOPICAL DAILY PRN #1 ea 10/30/20 omeprazole 40 mg PO DAILY #20 cap 11/04/20 sucralfate [Carafate] 1 g PO BID #30 tab 11/04/20 mupirocin 1 appl TOPICAL BID #15 g 12/04/20 cyclobenzaprine 10 mg PO TID PRN #14 tab 12/07/20 ibuprofen 600 mg PO Q6H PRN #30 tab 12/07/20 lidocaine 1 patch TOPICAL DAILY PRN #10 ea 12/07/20 PNV no.170-iron fum-folic acid 1 tab PO DAILY #30 tab 12/15/20 omeprazole 20 mg PO DAILY #30 cap 12/15/20 cyclobenzaprine 10 mg PO TID PRN #20 tab 12/27/20 lidocaine 1 patch TOPICAL Q24H #15 ea 12/27/20 ondansetron 4 mg PO Q8H PRN #20 tab 01/02/21 naloxone [Narcan] 4 mg INTRANASAL Q3M PRN #2 ea 01/08/21 cyclobenzaprine 10 mg PO TID PRN #10 tab 01/16/21 ketorolac 10 mg PO Q8H PRN #10 tab 01/16/21 Allergies Allergy/AdvReac Type Severity Reaction Status Date / Time Penicillins [PCN] Allergy Mild RASH Verified 10/30/20 09:16 silver AdvReac Intermediate rash Verified 10/30/20 09:16 [From TEGADERM AG MESH] Review of Systems Review of Systems: No fever no chills no dizziness no confusion no weakness no headache no chest pain no shortness of breath no abdominal pain no nausea vomiting or diarrhea no skin rash no numbness or weakness PMFSH Past Medical History PMFSH Narrative: Patient confirms using opiates cocaine and alcohol regularly Source: nursing notes reviewed Medical History Contusion Foot drop, right foot Heart murmur Schizophrenia Surgical History No pertinent past surgical history Social History Social History Alcohol intake: unknown Smoking Status: Current every day smoker Substance Use Type: Heroin and Marijuana Advance Directives: No Advance Directives Information Provided: No Physical Exam Vital Signs: Vital Signs: Last Vital Signs Temp 98.0 F 01/18/21 10:45 Pulse 74 01/18/21 10:45 Resp 18 01/18/21 10:45 BP 124/70 01/18/21 10:45 Pulse Ox 98 01/18/21 10:45 Body Mass Index 22.0 General appearance no acute distress comfortable relaxed and cooperative A&O x3 Head is normocephalic atraumatic Pupils equal round react to light neck is ocular motions are intact Neck is supple Chest clear to auscultation bilaterally with full symmetrical breath sounds Heart no murmurs Abdomen soft nontender Extremities full range of motion x4 Neuro there is no tremor, gait and balance are normal, verbal communication and understanding are normal, motor is 5/5 x4 no facial asymmetry Course Course Course Narrative: Patient seems to be sober not in any acute or dangerous phase of withdrawal and is cleared to go to detox and is provided with a bus voucher Discharge Plan Discharge Clinical Impression: Substance abuse Patient Disposition: Home, Self-Care Additional Instructions: We have arranged transportation to detox You are medically cleared to go to detox Prescriptions: No Action ketorolac 10 mg tablet 10 mg PO Q6H PRN (Reason: pain) 5 Days Qty: 20 RF: 0 naproxen 500 mg tablet 500 mg PO BID PRN (Reason: pain) Qty: 14 RF: 0 cyclobenzaprine 5 mg tablet 5 mg PO TID PRN (Reason: muscle spasm) Qty: 10 RF: 0 (DME) cane Device See Rx Instructions .ROUTE .MEDSUPPLY Qty: 1 RF: 0 cyclobenzaprine 10 mg tablet 10 mg PO BEDTIME PRN (Reason: muscle spasm) Qty: 3 RF: 0 doxycycline monohydrate 100 mg capsule 100 mg PO BID 7 Days Qty: 14 RF: 0 cephalexin [Keflex] 500 mg capsule 500 mg PO QID 7 Days Qty: 28 RF: 0 lidocaine [Lidoderm] 5 % adhesive patch,medicated 1 patch topical DAILY Qty: 15 RF: 0 ibuprofen 600 mg tablet 600 mg PO Q8H PRN (Reason: pain) Qty: 15 RF: 0 cyclobenzaprine 10 mg tablet 10 mg PO TID PRN (Reason: muscle spasm) Qty: 8 RF: 0 lidocaine [Lidoderm] 5 % adhesive patch,medicated 1 patch topical DAILY PRN (Reason: pain) Qty: 1 RF: 0 ibuprofen 400 mg tablet 400 mg PO Q6H PRN (Reason: pain) Qty: 20 RF: 0 omeprazole 40 mg capsule,delayed release(DR/EC) 40 mg PO DAILY Qty: 20 RF: 0 sucralfate [Carafate] 1 gram tablet 1 g PO BID Qty: 30 RF: 0 mupirocin 2 % ointment 1 appl topical BID Qty: 15 RF: 0 omeprazole 20 mg capsule,delayed release(DR/EC) 20 mg PO DAILY Qty: 30 RF: 0 PNV no.170-iron fum-folic acid 27 mg iron- 1 mg tablet 1 tab PO DAILY Qty: 30 RF: 0 cyclobenzaprine 10 mg tablet 10 mg PO TID PRN (Reason: muscle pain or spasm) Qty: 20 RF: 0 lidocaine 5 % adhesive patch,medicated 1 patch topical Q24H Qty: 15 RF: 0 ondansetron 4 mg tablet,disintegrating 4 mg PO Q8H PRN (Reason: nausea and vomiting) Qty: 20 RF: 0 Narcan 4 mg/actuation spray,non-aerosol 4 mg intranasal Q3M PRN (Reason: opioid overdose) Qty: 2 RF: 0 Atarax 100 mg Tablet 100 mg PO NEEDED PRN (Reason: Anxiety) RF: 0 hydrocortisone [Anusol-HC] 2.5 % cream with perineal applicator 1 applic [place] BEDTIME PRN (Reason: pain) Qty: 30 RF: 0 polyethylene glycol 3350 [Miralax] 17 gram/dose powder 17 g PO DAILY Qty: 119 RF: 0 cyclobenzaprine 10 mg tablet 10 mg PO TID PRN (Reason: muscle spasm) Qty: 30 RF: 0 tramadol 50 mg tablet 50 mg PO Q8H PRN (Reason: pain) Qty: 12 RF: 0 cyclobenzaprine 5 mg tablet 5 mg PO TID PRN (Reason: muscle spasm) Qty: 5 RF: 0 cyclobenzaprine 10 mg tablet 10 mg PO TID PRN (Reason: muscle spasm) Qty: 20 RF: 0 ketorolac 10 mg tablet 10 mg PO QID 5 Days Qty: 20 RF: 0 methocarbamol [Robaxin-750] 750 mg tablet 750 mg PO Q8H PRN (Reason: pain, severe) Qty: 10 RF: 0 acetaminophen [Tylenol Extra Strength] 500 mg tablet 500 mg PO Q6H PRN (Reason: pain or fever) Qty: 20 RF: 0 lidocaine [Lidoderm] 5 % adhesive patch,medicated 1 patch topical DAILY MDD remove after 12 hours PRN (Reason: pain) Qty: 30 RF: 0 naproxen 500 mg tablet 500 mg PO BID PRN (Reason: pain) 10 Days Qty: 20 RF: 0 cyclobenzaprine 10 mg tablet 10 mg PO TID PRN (Reason: muscle spasm) Qty: 14 RF: 0 lidocaine 4 % adhesive patch,medicated 1 patch topical DAILY PRN (Reason: pain) Qty: 10 RF: 0 ibuprofen 600 mg tablet 600 mg PO Q6H PRN (Reason: pain) Qty: 30 RF: 0 ketorolac 10 mg tablet 10 mg PO Q8H PRN (Reason: pain) Qty: 10 RF: 0 cyclobenzaprine 10 mg tablet 10 mg PO TID PRN (Reason: muscle spasm) Qty: 10 RF: 0 Interventions: ED Discharge Assessment Last Done: 01/18/21 11:46 Discharge Date/Time: 01/18/21 11:46
--- NOTE | 2021-01-18 12:14 | MHC.CARE ---
10:30 - Met w/ Pt at the request of the ED home care associate. Pt walked to the hospital from his residence and stated that he wanted to enter into a recovery program. Pt advised me that [facility] had open beds but he had no way there. Pt stated that he last used yesterday. Upon speaking with ED staff it was determined that pt would have to be seen by a provider and that he would be given a bus ticket if he was medically cleared. Pt advised me he had no thoughts of harm to self or others and came here to attempt to get a means of transportation to the [facility].
== END 2021-01-18 11:46 | disposition home or self-care (01) ==
PROVIDERS: Emergency Provider Emergency Medicine
DX: Z02.2 Encounter for examination for admission to residential institution (principal); F14.10 Cocaine abuse, uncomplicated; F11.10 Opioid abuse, uncomplicated; F10.10 Alcohol abuse, uncomplicated; F17.200 Nicotine dependence, unspecified, uncomplicated; F12.90 Cannabis use, unspecified, uncomplicated
CPT/HCPCS: 99283; 99284

== ENCOUNTER 2021-01-27 05:06 | Emergency (ER) | payer OTHER, SELFPAY ==
[2021-01-27 05:14] VITALS: BP 135/85; PULSE 88; RESP 16; TEMP 36.7; O2SAT 98; BMI 24.3
[2021-01-27] MEDS: Lidocaine 4 % Patch ADH..PATCH 1 PATCH TRANSDERMA (05:54)
[2021-01-27] MEDS: Ketorolac Tromethamine 15 MG/ML VIAL IM (05:54)
[2021-01-27] MEDS: Acetaminophen 325 MG TABLET 975 MG PO (05:55)
--- NOTE | 2021-01-27 06:11 | ED_ITS ---
HPI - Back Pain/Injury General Chief Complaint: Back Pain/Injury Stated Complaint: Back pain Time Seen by Provider: 01/27/21 05:24 Source: patient Mode of arrival: ambulatory History of Present Illness HPI Narrative: This is a 36-year-old male presents with acute on chronic right- sided lower back pain that does not radiate into the right lower extremity and is not associated with any bowel or bladder dysfunction. Patient states that it simply flare sometimes and denies any associated fevers, chills, IV drug use, urinary pain/burning/frequency. Related Data Home Medications Medication Instructions Recorded Confirmed hydroxyzine HCl [Atarax] 100 mg PO NEEDED PRN 08/03/20 08/03/20 Previous Rx's Medication Instructions Recorded hydrocortisone [Anusol-HC] 1 applic [place] BEDTIME PRN #30 g 08/13/20 polyethylene glycol 3350 [Miralax] 17 g PO DAILY #119 g 08/13/20 cyclobenzaprine 10 mg PO TID PRN #30 tab 08/15/20 tramadol 50 mg PO Q8H PRN #12 tab 08/15/20 ketorolac 10 mg PO Q6H PRN 5 Days #20 tab 08/17/20 cane #1 ea 09/01/20 cyclobenzaprine 5 mg PO TID PRN #10 tab 09/01/20 naproxen 500 mg PO BID PRN #14 tab 09/01/20 cyclobenzaprine 5 mg PO TID PRN #5 tab 09/08/20 cyclobenzaprine 10 mg PO BEDTIME PRN #3 tab 09/17/20 cyclobenzaprine 10 mg PO TID PRN #20 tab 09/22/20 ketorolac 10 mg PO QID 5 Days #20 tab 09/22/20 cephalexin [Keflex] 500 mg PO QID 7 Days #28 cap 09/26/20 doxycycline monohydrate 100 mg PO BID 7 Days #14 cap 09/26/20 cyclobenzaprine 10 mg PO TID PRN #8 tab 09/29/20 ibuprofen 600 mg PO Q8H PRN #15 tab 09/29/20 lidocaine [Lidoderm] 1 patch TOPICAL DAILY #15 ea 09/29/20 acetaminophen [Tylenol Extra 500 mg PO Q6H PRN #20 tab 10/04/20 Strength] lidocaine [Lidoderm] 1 patch TOPICAL DAILY PRN #30 ea 10/04/20 MDD remove after 12 hours methocarbamol [Robaxin-750] 750 mg PO Q8H PRN #10 tab 10/04/20 naproxen 500 mg PO BID PRN 10 Days #20 tab 10/04/20 ibuprofen 400 mg PO Q6H PRN #20 tab 10/30/20 lidocaine [Lidoderm] 1 patch TOPICAL DAILY PRN #1 ea 10/30/20 omeprazole 40 mg PO DAILY #20 cap 11/04/20 sucralfate [Carafate] 1 g PO BID #30 tab 11/04/20 mupirocin 1 appl TOPICAL BID #15 g 12/04/20 cyclobenzaprine 10 mg PO TID PRN #14 tab 12/07/20 ibuprofen 600 mg PO Q6H PRN #30 tab 12/07/20 lidocaine 1 patch TOPICAL DAILY PRN #10 ea 12/07/20 PNV no.170-iron fum-folic acid 1 tab PO DAILY #30 tab 12/15/20 omeprazole 20 mg PO DAILY #30 cap 12/15/20 cyclobenzaprine 10 mg PO TID PRN #20 tab 12/27/20 lidocaine 1 patch TOPICAL Q24H #15 ea 12/27/20 ondansetron 4 mg PO Q8H PRN #20 tab 01/02/21 naloxone [Narcan] 4 mg INTRANASAL Q3M PRN #2 ea 01/08/21 cyclobenzaprine 10 mg PO TID PRN #10 tab 01/16/21 ketorolac 10 mg PO Q8H PRN #10 tab 01/16/21 ketorolac 10 mg PO Q6H PRN 5 Days #20 tab 01/27/21 Allergies Allergy/AdvReac Type Severity Reaction Status Date / Time Penicillins [PCN] Allergy Mild RASH Verified 01/27/21 05:17 silver AdvReac Intermediate rash Verified 01/27/21 05:17 [From TEGADERM AG MESH] Review of Systems Review of Systems: Pertinent positives and negatives as stated in HPI 10 point review of systems is otherwise negative. [facility] Past Medical History Source: nursing notes reviewed Medical History Contusion Foot drop, right foot Heart murmur Schizophrenia Surgical History No pertinent past surgical history Social History Social History Alcohol intake: unknown Smoking Status: Current every day smoker Use of substances other than those prescribed or required for medical reasons: Yes Substance Use Type: Crack/Cocaine, Heroin and Marijuana Substance Use Frequency: Chronic Longstanding Advance Directives: No Advance Directives Information Provided: No Physical Exam Vital Signs: Vital Signs: Last Vital Signs Temp 98.1 F 01/27/21 05:14 Pulse 88 01/27/21 05:14 Resp 16 01/27/21 05:14 BP 135/85 01/27/21 05:14 Pulse Ox 98 01/27/21 05:14 Body Mass Index 24.3 VITAL SIGNS: Reviewed. GENERAL: Well developed, well nourished, in no acute distress. HEAD: Normocephalic/atraumatic, EYES: PERRLA, EOMI OROPHARYNX: no oral lesions noted, posterior pharynx clear NECK: Supple, no adenopathy LUNGS: Normal breath sounds. No adventitious sounds or accessory muscle use. SpO2<98> CARDIOVASCULAR: Regular rate and rhythm without noted murmurs ABDOMEN: Soft, non-tender, non-distended with bowel sounds. BACK: No midline vertebral tenderness, there is some mild pain on palpation over the right paraspinal lumbar region with negative straight leg testing NEUROLOGIC: Alert and oriented x 4. Course Course Course Narrative: This is a 36-year-old male presents with acute on chronic back pain with low clinical suspicion for infection or etiologies. Patient was provided with combination analgesics and reassessed. On re-evaluation patient reports complete resolution of discomfort and he was discharged in stable condition. Discharge Plan Discharge Clinical Impression: Back pain Qualifiers: Back pain location: low back pain Chronicity: chronic Back pain laterality: right Sciatica presence: without sciatica Qualified Code(s): M54.5 - Low back pain Patient Disposition: Home, Self-Care Instructions: Chronic Back Pain (DC), Lower Back Exercises (ED) Additional Instructions: 1. Tylenol 1000 mg, orally, every 6 hours as needed for pain control. Do not exceed 4000 mg within 24 hours. 2. Please follow-up with your primary care provider in the next 2-3 days for re- evaluation. 3. Lidocaine patch, these are available at every [facility]/[employer], apply to area of maximal tenderness as directed on the outside packaging. Do not hesitate to return to the emergency department should you experience any acute worsening of your symptoms especially if associated with fever, chills, urinary difficulties. Prescriptions: New ketorolac 10 mg tablet 10 mg PO Q6H PRN (Reason: pain) 5 Days Qty: 20 RF: 0 No Action ketorolac 10 mg tablet 10 mg PO Q6H PRN (Reason: pain) 5 Days Qty: 20 RF: 0 naproxen 500 mg tablet 500 mg PO BID PRN (Reason: pain) Qty: 14 RF: 0 cyclobenzaprine 5 mg tablet 5 mg PO TID PRN (Reason: muscle spasm) Qty: 10 RF: 0 (DME) cane Device See Rx Instructions .ROUTE .MEDSUPPLY Qty: 1 RF: 0 cyclobenzaprine 10 mg tablet 10 mg PO BEDTIME PRN (Reason: muscle spasm) Qty: 3 RF: 0 doxycycline monohydrate 100 mg capsule 100 mg PO BID 7 Days Qty: 14 RF: 0 cephalexin [Keflex] 500 mg capsule 500 mg PO QID 7 Days Qty: 28 RF: 0 lidocaine [Lidoderm] 5 % adhesive patch,medicated 1 patch topical DAILY Qty: 15 RF: 0 ibuprofen 600 mg tablet 600 mg PO Q8H PRN (Reason: pain) Qty: 15 RF: 0 cyclobenzaprine 10 mg tablet 10 mg PO TID PRN (Reason: muscle spasm) Qty: 8 RF: 0 lidocaine [Lidoderm] 5 % adhesive patch,medicated 1 patch topical DAILY PRN (Reason: pain) Qty: 1 RF: 0 ibuprofen 400 mg tablet 400 mg PO Q6H PRN (Reason: pain) Qty: 20 RF: 0 omeprazole 40 mg capsule,delayed release(DR/EC) 40 mg PO DAILY Qty: 20 RF: 0 sucralfate [Carafate] 1 gram tablet 1 g PO BID Qty: 30 RF: 0 mupirocin 2 % ointment 1 appl topical BID Qty: 15 RF: 0 omeprazole 20 mg capsule,delayed release(DR/EC) 20 mg PO DAILY Qty: 30 RF: 0 PNV no.170-iron fum-folic acid 27 mg iron- 1 mg tablet 1 tab PO DAILY Qty: 30 RF: 0 cyclobenzaprine 10 mg tablet 10 mg PO TID PRN (Reason: muscle pain or spasm) Qty: 20 RF: 0 lidocaine 5 % adhesive patch,medicated 1 patch topical Q24H Qty: 15 RF: 0 ondansetron 4 mg tablet,disintegrating 4 mg PO Q8H PRN (Reason: nausea and vomiting) Qty: 20 RF: 0 Narcan 4 mg/actuation spray,non-aerosol 4 mg intranasal Q3M PRN (Reason: opioid overdose) Qty: 2 RF: 0 Atarax 100 mg Tablet 100 mg PO NEEDED PRN (Reason: Anxiety) RF: 0 hydrocortisone [Anusol-HC] 2.5 % cream with perineal applicator 1 applic [place] BEDTIME PRN (Reason: pain) Qty: 30 RF: 0 polyethylene glycol 3350 [Miralax] 17 gram/dose powder 17 g PO DAILY Qty: 119 RF: 0 cyclobenzaprine 10 mg tablet 10 mg PO TID PRN (Reason: muscle spasm) Qty: 30 RF: 0 tramadol 50 mg tablet 50 mg PO Q8H PRN (Reason: pain) Qty: 12 RF: 0 cyclobenzaprine 5 mg tablet 5 mg PO TID PRN (Reason: muscle spasm) Qty: 5 RF: 0 cyclobenzaprine 10 mg tablet 10 mg PO TID PRN (Reason: muscle spasm) Qty: 20 RF: 0 ketorolac 10 mg tablet 10 mg PO QID 5 Days Qty: 20 RF: 0 methocarbamol [Robaxin-750] 750 mg tablet 750 mg PO Q8H PRN (Reason: pain, severe) Qty: 10 RF: 0 acetaminophen [Tylenol Extra Strength] 500 mg tablet 500 mg PO Q6H PRN (Reason: pain or fever) Qty: 20 RF: 0 lidocaine [Lidoderm] 5 % adhesive patch,medicated 1 patch topical DAILY MDD remove after 12 hours PRN (Reason: pain) Qty: 30 RF: 0 naproxen 500 mg tablet 500 mg PO BID PRN (Reason: pain) 10 Days Qty: 20 RF: 0 cyclobenzaprine 10 mg tablet 10 mg PO TID PRN (Reason: muscle spasm) Qty: 14 RF: 0 lidocaine 4 % adhesive patch,medicated 1 patch topical DAILY PRN (Reason: pain) Qty: 10 RF: 0 ibuprofen 600 mg tablet 600 mg PO Q6H PRN (Reason: pain) Qty: 30 RF: 0 ketorolac 10 mg tablet 10 mg PO Q8H PRN (Reason: pain) Qty: 10 RF: 0 cyclobenzaprine 10 mg tablet 10 mg PO TID PRN (Reason: muscle spasm) Qty: 10 RF: 0 Interventions: ED Discharge Assessment Last Done: 01/27/21 06:49 Discharge Date/Time: 01/27/21 07:31
== END 2021-01-27 07:31 | disposition home or self-care (01) ==
PROVIDERS: Emergency Provider Student in an Organized Health Care Education/Training Program
DX: M54.5 Low back pain (principal); F17.200 Nicotine dependence, unspecified, uncomplicated; F14.90 Cocaine use, unspecified, uncomplicated; F12.90 Cannabis use, unspecified, uncomplicated; F11.90 Opioid use, unspecified, uncomplicated; I10 Essential (primary) hypertension
CPT/HCPCS: 96372; 99284; J1885

== ENCOUNTER 2021-01-27 14:53 | Emergency (ER) | payer OTHER, SELFPAY ==
--- NOTE | 2021-01-27 15:10 | ED.OVERDOSE ---
HPI - Overdose General Chief Complaint: Overdose <RADHA Barber - Last Filed: 01/27/21 16:26> Stated Complaint: OD <RADHA Barber - Last Filed: 01/27/21 16:26> Time Seen by Provider: 01/27/21 15:06 <RADHA Barber - Last Filed: 01/27/21 16:26> Source: patient and EMS <RADHA Barber - Last Filed: 01/27/21 16:26> Mode of arrival: EMS <RADHA Barber - Last Filed: 01/27/21 16:26> Limitations: no limitations <RADHA Barber - Last Filed: 01/27/21 16:26> History of Present Illness HPI Narrative: 36 y/o male with history of polysubstance abuse, history of several overdoses in the past presents, schizophrenia, HTN who presents to the ED via EMS after he had an unintentional overdose on heroin and crack 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 He was given 4mg IN Narcan by EMS. He states he was just trying to get high and not trying to kill or hurt himself. He cannot quantify how much he uses, reports it's a lot and it's every day. He was just out of [facility] recently with an appointment at [facility] in [place] on 01/30/21. He arrives to the ED AAOX 3 and conversant. <RADHA Barber - Last Filed: 01/27/21 16:26> MD complaint: intentional overdose <RADHA Barber - Last Filed: 01/27/21 16:26> Onset (ago): hour(s) (1) <RADHA Barber - Last Filed: 01/27/21 16:26> Intent: other (to get high ) <RADHA Barber - Last Filed: 01/27/21 16:26> How Overdose Was Discovered: family/friend present at time <RADHA Barber - Last Filed: 01/27/21 16:26> Context: Intentional Overdose: relationship problems <RADHA Barber - Last Filed: 01/27/21 16:26> Context: Accidental Overdose: wanted to get high <RADHA Barber - Last Filed: 01/27/21 16:26> Treatments Prior to Arrival: narcan <RADHA Barber - Last Filed: 01/27/21 16:26> Related Data Home Medications: Home Medications Medication Instructions Recorded Confirmed hydroxyzine HCl [Atarax] 100 mg PO NEEDED PRN 08/03/20 08/03/20 Previous Rx's Medication Instructions Recorded hydrocortisone [Anusol-HC] 1 applic WI BEDTIME PRN #30 g 08/13/20 polyethylene glycol 3350 [Miralax] 17 g PO DAILY #119 g 08/13/20 cyclobenzaprine 10 mg PO TID PRN #30 tab 08/15/20 tramadol 50 mg PO Q8H PRN #12 tab 08/15/20 ketorolac 10 mg PO Q6H PRN 5 Days #20 tab 08/17/20 cane #1 ea 09/01/20 cyclobenzaprine 5 mg PO TID PRN #10 tab 09/01/20 naproxen 500 mg PO BID PRN #14 tab 09/01/20 cyclobenzaprine 5 mg PO TID PRN #5 tab 09/08/20 cyclobenzaprine 10 mg PO BEDTIME PRN #3 tab 09/17/20 cyclobenzaprine 10 mg PO TID PRN #20 tab 09/22/20 ketorolac 10 mg PO QID 5 Days #20 tab 09/22/20 cephalexin [Keflex] 500 mg PO QID 7 Days #28 cap 09/26/20 doxycycline monohydrate 100 mg PO BID 7 Days #14 cap 09/26/20 cyclobenzaprine 10 mg PO TID PRN #8 tab 09/29/20 ibuprofen 600 mg PO Q8H PRN #15 tab 09/29/20 lidocaine [Lidoderm] 1 patch TOPICAL DAILY #15 ea 09/29/20 acetaminophen [Tylenol Extra 500 mg PO Q6H PRN #20 tab 10/04/20 Strength] lidocaine [Lidoderm] 1 patch TOPICAL DAILY PRN #30 ea 10/04/20 MDD remove after 12 hours methocarbamol [Robaxin-750] 750 mg PO Q8H PRN #10 tab 10/04/20 naproxen 500 mg PO BID PRN 10 Days #20 tab 10/04/20 ibuprofen 400 mg PO Q6H PRN #20 tab 10/30/20 lidocaine [Lidoderm] 1 patch TOPICAL DAILY PRN #1 ea 10/30/20 omeprazole 40 mg PO DAILY #20 cap 11/04/20 sucralfate [Carafate] 1 g PO BID #30 tab 11/04/20 mupirocin 1 appl TOPICAL BID #15 g 12/04/20 cyclobenzaprine 10 mg PO TID PRN #14 tab 12/07/20 ibuprofen 600 mg PO Q6H PRN #30 tab 12/07/20 lidocaine 1 patch TOPICAL DAILY PRN #10 ea 12/07/20 PNV no.170-iron fum-folic acid 1 tab PO DAILY #30 tab 12/15/20 omeprazole 20 mg PO DAILY #30 cap 12/15/20 cyclobenzaprine 10 mg PO TID PRN #20 tab 12/27/20 lidocaine 1 patch TOPICAL Q24H #15 ea 12/27/20 ondansetron 4 mg PO Q8H PRN #20 tab 01/02/21 naloxone [Narcan] 4 mg INTRANASAL Q3M PRN #2 ea 01/08/21 cyclobenzaprine 10 mg PO TID PRN #10 tab 01/16/21 ketorolac 10 mg PO Q8H PRN #10 tab 01/16/21 ketorolac 10 mg PO Q6H PRN 5 Days #20 tab 01/27/21 ibuprofen 600 mg PO Q6H PRN #20 tab 02/10/21 loperamide [Anti-Diarrheal 2 mg PO Q4H PRN #10 tab 02/10/21 (loperamide)] ondansetron HCl [Zofran] 4 mg PO Q6H PRN #14 tab 02/10/21 ondansetron 4 mg PO Q6-8H PRN #14 tab 02/13/21 pantoprazole [Protonix] 20 mg PO DAILY #30 tab 02/13/21 <RADHA Barber - Last Filed: 01/27/21 16:26> Allergies/Adverse Reactions: Allergies Allergy/AdvReac Type Severity Reaction Status Date / Time Penicillins [PCN] Allergy Mild RASH Verified 01/27/21 05:17 silver AdvReac Intermediate rash Verified 01/27/21 05:17 [From TEGADERM AG MESH] <RADHA Barber - Last Filed: 01/27/21 16:26> Review of Systems Review of Systems: Constitutional: No Fever, No Chills Cardiovascular: No Chest Pain, No SOB, Respiratory: No Cough, No Sputum Gastrointestinal: No Nausea, No Vomiting, No Diarrhea, No abdominal Pain, Musculoskeletal: No joint pain, No Myalgias Skin: No Skin Lesions, No rash Neuro: No Weakness, No Numbness, No Dizziness, + Headache Psych: No Anxiety/Panic, No Depression Heme/Lymph: + Bruising, No Lymphadenopathy <RADHA Barber - Last Filed: 01/27/21 16:26> [facility] Past Medical History Attestation statement: The following information was validated with the patient. <RADHA Barber - Last Filed: 01/27/21 16:26> Medical History: Medical History Contusion Foot drop, right foot Heart murmur Schizophrenia <RADHA Barber - Last Filed: 01/27/21 16:26> Surgical History: Surgical History No pertinent past surgical history <RADHA Barber - Last Filed: 01/27/21 16:26> Social History Social History: Social History Alcohol intake: unknown Smoking Status: Current every day smoker Use of substances other than those prescribed or required for medical reasons: Yes Substance Use Type: Marijuana Substance Use Frequency: Daily Advance Directives: No <RADHA Barber - Last Filed: 01/27/21 16:26> Physical Exam Vital Signs: Vital Signs: Last Vital Signs Temp 97.8 F 01/27/21 15:11 Pulse 102 H 01/27/21 15:11 Resp 18 01/27/21 15:11 BP 132/68 01/27/21 15:11 Pulse Ox 100 01/27/21 15:11 Body Mass Index 19.7 Appearance: Alert. Oriented X3. No acute distress. Eyes: Pupils equal, round and reactive to light. ENT: Pharynx normal. Neck: Normal inspection. Neck supple. CVS: Normal heart rate and rhythm. Pulses normal. Respiratory: No respiratory distress. Breath sounds normal. Abdomen: Soft and nontender. +BS x4 Skin: Skin warm and dry. Normal skin color. Normal skin turgor. No rashes. Extremities: No lower extremity edema. LUE with bruising in AC area from recent injection of drugs Neuro: Oriented X 3. No motor deficit. No sensory deficit. Steady gait. <RADHA Barber - Last Filed: 01/27/21 16:26> Vital Signs: Last Vital Signs Temp 97.8 F 01/27/21 15:11 Pulse 102 H 01/27/21 15:11 Resp 18 01/27/21 15:11 BP 132/68 01/27/21 15:11 Pulse Ox 100 01/27/21 15:11 Body Mass Index 19.7 <Chan Flood MD - Last Filed: 02/14/21 13:33> Course Course Course Narrative: 36 y/o male presenting with unintentional overdose requiring narcan. He is AAO on arrival. Will monitor and d/c when clinically approrpiate. 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 <RADHA Barber - Last Filed: 01/27/21 16:26> I have reviewed the chart <Chan Flood MD - Last Filed: 02/14/21 13:33> Reevaluation(s) Reevaluation #1: Pelon from CARE team discussed sobriety and options with the patient - resources provided. He made an appointment in our clinic for tomorrow instead of [facility]. He has been observed in the ED for 1.5 hours. He is AAO, ambulating well and eating. He is stable for discharge. <RADHA Barber - Last Filed: 01/27/21 16:26> Consultations Consultation #1: CARE team <RADHA Barber - Last Filed: 01/27/21 16:26> Discharge Plan Discharge Clinical Impression: Drug overdose <RADHA Barber - Last Filed: 01/27/21 16:26> Patient Disposition: Home, Self-Care <RADHA Barber - Last Filed: 01/27/21 16:26> Instructions: Adult Overdose (ED) <RADHA Barber - Last Filed: 01/27/21 16:26> Additional Instructions: DO NOT USE HEROIN - IT CAN KILL YOU Recommend detox Follow up in the Clinic tomorrow as scheduled <RADHA Barber - Last Filed: 01/27/21 16:26> Prescriptions: No Action ketorolac 10 mg tablet 10 mg PO Q6H PRN (Reason: pain) 5 Days Qty: 20 RF: 0 naproxen 500 mg tablet 500 mg PO BID PRN (Reason: pain) Qty: 14 RF: 0 cyclobenzaprine 5 mg tablet 5 mg PO TID PRN (Reason: muscle spasm) Qty: 10 RF: 0 (DME) cane Device See Rx Instructions .ROUTE .MEDSUPPLY Qty: 1 RF: 0 cyclobenzaprine 10 mg tablet 10 mg PO BEDTIME PRN (Reason: muscle spasm) Qty: 3 RF: 0 doxycycline monohydrate 100 mg capsule 100 mg PO BID 7 Days Qty: 14 RF: 0 cephalexin [Keflex] 500 mg capsule 500 mg PO QID 7 Days Qty: 28 RF: 0 lidocaine [Lidoderm] 5 % adhesive patch,medicated 1 patch topical DAILY Qty: 15 RF: 0 ibuprofen 600 mg tablet 600 mg PO Q8H PRN (Reason: pain) Qty: 15 RF: 0 cyclobenzaprine 10 mg tablet 10 mg PO TID PRN (Reason: muscle spasm) Qty: 8 RF: 0 lidocaine [Lidoderm] 5 % adhesive patch,medicated 1 patch topical DAILY PRN (Reason: pain) Qty: 1 RF: 0 ibuprofen 400 mg tablet 400 mg PO Q6H PRN (Reason: pain) Qty: 20 RF: 0 omeprazole 40 mg capsule,delayed release(DR/EC) 40 mg PO DAILY Qty: 20 RF: 0 sucralfate [Carafate] 1 gram tablet 1 g PO BID Qty: 30 RF: 0 mupirocin 2 % ointment 1 appl topical BID Qty: 15 RF: 0 omeprazole 20 mg capsule,delayed release(DR/EC) 20 mg PO DAILY Qty: 30 RF: 0 PNV no.170-iron fum-folic acid 27 mg iron- 1 mg tablet 1 tab PO DAILY Qty: 30 RF: 0 cyclobenzaprine 10 mg tablet 10 mg PO TID PRN (Reason: muscle pain or spasm) Qty: 20 RF: 0 lidocaine 5 % adhesive patch,medicated 1 patch topical Q24H Qty: 15 RF: 0 ondansetron 4 mg tablet,disintegrating 4 mg PO Q8H PRN (Reason: nausea and vomiting) Qty: 20 RF: 0 Narcan 4 mg/actuation spray,non-aerosol 4 mg intranasal Q3M PRN (Reason: opioid overdose) Qty: 2 RF: 0 ketorolac 10 mg tablet 10 mg PO Q6H PRN (Reason: pain) 5 Days Qty: 20 RF: 0 ondansetron HCl [Zofran] 4 mg tablet 4 mg PO Q6H PRN (Reason: nausea and vomiting) Qty: 14 RF: 0 loperamide [Anti-Diarrheal (loperamide)] 2 mg tablet 2 mg PO Q4H PRN (Reason: loose stool) Qty: 10 RF: 0 ibuprofen 600 mg tablet 600 mg PO Q6H PRN (Reason: fever or pain) Qty: 20 RF: 0 Atarax 100 mg Tablet 100 mg PO NEEDED PRN (Reason: Anxiety) RF: 0 hydrocortisone [Anusol-HC] 2.5 % cream with perineal applicator 1 applic WI BEDTIME PRN (Reason: pain) Qty: 30 RF: 0 polyethylene glycol 3350 [Miralax] 17 gram/dose powder 17 g PO DAILY Qty: 119 RF: 0 cyclobenzaprine 10 mg tablet 10 mg PO TID PRN (Reason: muscle spasm) Qty: 30 RF: 0 tramadol 50 mg tablet 50 mg PO Q8H PRN (Reason: pain) Qty: 12 RF: 0 cyclobenzaprine 5 mg tablet 5 mg PO TID PRN (Reason: muscle spasm) Qty: 5 RF: 0 cyclobenzaprine 10 mg tablet 10 mg PO TID PRN (Reason: muscle spasm) Qty: 20 RF: 0 ketorolac 10 mg tablet 10 mg PO QID 5 Days Qty: 20 RF: 0 methocarbamol [Robaxin-750] 750 mg tablet 750 mg PO Q8H PRN (Reason: pain, severe) Qty: 10 RF: 0 acetaminophen [Tylenol Extra Strength] 500 mg tablet 500 mg PO Q6H PRN (Reason: pain or fever) Qty: 20 RF: 0 lidocaine [Lidoderm] 5 % adhesive patch,medicated 1 patch topical DAILY MDD remove after 12 hours PRN (Reason: pain) Qty: 30 RF: 0 naproxen 500 mg tablet 500 mg PO BID PRN (Reason: pain) 10 Days Qty: 20 RF: 0 cyclobenzaprine 10 mg tablet 10 mg PO TID PRN (Reason: muscle spasm) Qty: 14 RF: 0 lidocaine 4 % adhesive patch,medicated 1 patch topical DAILY PRN (Reason: pain) Qty: 10 RF: 0 ibuprofen 600 mg tablet 600 mg PO Q6H PRN (Reason: pain) Qty: 30 RF: 0 ketorolac 10 mg tablet 10 mg PO Q8H PRN (Reason: pain) Qty: 10 RF: 0 cyclobenzaprine 10 mg tablet 10 mg PO TID PRN (Reason: muscle spasm) Qty: 10 RF: 0 pantoprazole [Protonix] 20 mg tablet,delayed release (DR/EC) 20 mg PO DAILY Qty: 30 RF: 0 ondansetron 4 mg tablet,disintegrating 4 mg PO Q6-8H PRN (Reason: nausea and vomiting) Qty: 14 RF: 0 <RADHA Barber - Last Filed: 01/27/21 16:26> Interventions: ED Discharge Assessment Last Done: 01/27/21 16:35 <RADHA Barber - Last Filed: 01/27/21 16:26> Discharge Date/Time: 01/27/21 16:36 <RADHA Barber - Last Filed: 01/27/21 16:26>
[2021-01-27 15:11] VITALS: BP 132/68; PULSE 102; RESP 18; TEMP 36.6; O2SAT 100; BMI 19.7
--- NOTE | 2021-01-27 16:06 | MHC.RECOVSUP ---
Recovery Support note: Patient is a 36 year old Taiwanese speaking male who presented to [facility] after an accidental overdose. This sql report writer met with patient to discuss substance use and treatment options. Patient reports daily heroin use, stating he has overdosed five times in one day. Patient acknowledges that he cannot continue this lifestyle and he reports a desire to get on Suboxone. Patient reports the [facility] is more convenient for him as he [address]. Patient has an appointment at the [facility] for 01/28 at 11:00. Patient provided with information on support groups as well.
== END 2021-01-27 16:36 | disposition home or self-care (01) ==
PROVIDERS: Emergency Provider Emergency Medicine
DX: T40.1X1A Poisoning by heroin, accidental (unintentional), initial encounter (principal); T40.5X1A Poisoning by cocaine, accidental (unintentional), initial encounter; Y92.9 Unspecified place or not applicable; F17.200 Nicotine dependence, unspecified, uncomplicated; I10 Essential (primary) hypertension
CPT/HCPCS: 99283

== ENCOUNTER 2021-01-31 00:39 | Emergency (ER) | payer OTHER, SELFPAY | END 2021-01-31 03:38 | disposition left against medical advice (07) | PROVIDERS: Emergency Provider Emergency Medicine | DX: M54.5 Low back pain (principal) ==

== ENCOUNTER 2021-02-02 01:24 | Emergency (ER) | payer OTHER, SELFPAY | END 2021-02-02 03:03 | disposition left against medical advice (07) | PROVIDERS: Emergency Provider Emergency Medicine | DX: M54.5 Low back pain (principal); M79.605 Pain in left leg; M79.604 Pain in right leg ==

== ENCOUNTER 2021-02-03 05:51 | Emergency (ER) | payer OTHER, SELFPAY ==
[2021-02-03 07:08] VITALS: BP 132/75; PULSE 68; RESP 18; TEMP 36.7; O2SAT 100; BMI 25.0
--- NOTE | 2021-02-03 07:24 | ED_ITS ---
HPI - Nausea/Vomiting/Diarrhea General Chief complaint: Nausea/Vomiting/Diarrhea Stated complaint: Abd pain/Multiple complaints Time Seen by Provider: 02/03/21 07:24 Source: patient Mode of arrival: ambulatory Limitations: no limitations History of Present Illness HPI Narrative: abdominal pain and back pain worse for years. patient with history of pancreatitis and is still drinking MD elicited complaint: nausea and vomiting Pertinent past history: other (gastritis) Onset (ago): year(s) Description of vomiting: watery Associated nausea: Yes Location of pain: epigastric Radiation: other (into the back) Pain consistency: intermittent Severity: moderate Quality: aching Exacerbating factors: eating and alcohol intake Relieving factors: none Associated symptoms: nausea/vomiting Related Data Home Medications Medication Instructions Recorded Confirmed hydroxyzine HCl [Atarax] 100 mg PO NEEDED PRN 08/03/20 08/03/20 Previous Rx's Medication Instructions Recorded hydrocortisone [Anusol-HC] 1 applic GA BEDTIME PRN #30 g 08/13/20 polyethylene glycol 3350 [Miralax] 17 g PO DAILY #119 g 08/13/20 cyclobenzaprine 10 mg PO TID PRN #30 tab 08/15/20 tramadol 50 mg PO Q8H PRN #12 tab 08/15/20 ketorolac 10 mg PO Q6H PRN 5 Days #20 tab 08/17/20 cane #1 ea 09/01/20 cyclobenzaprine 5 mg PO TID PRN #10 tab 09/01/20 naproxen 500 mg PO BID PRN #14 tab 09/01/20 cyclobenzaprine 5 mg PO TID PRN #5 tab 09/08/20 cyclobenzaprine 10 mg PO BEDTIME PRN #3 tab 09/17/20 cyclobenzaprine 10 mg PO TID PRN #20 tab 09/22/20 ketorolac 10 mg PO QID 5 Days #20 tab 09/22/20 cephalexin [Keflex] 500 mg PO QID 7 Days #28 cap 09/26/20 doxycycline monohydrate 100 mg PO BID 7 Days #14 cap 09/26/20 cyclobenzaprine 10 mg PO TID PRN #8 tab 09/29/20 ibuprofen 600 mg PO Q8H PRN #15 tab 09/29/20 lidocaine [Lidoderm] 1 patch TOPICAL DAILY #15 ea 09/29/20 acetaminophen [Tylenol Extra 500 mg PO Q6H PRN #20 tab 10/04/20 Strength] lidocaine [Lidoderm] 1 patch TOPICAL DAILY PRN #30 ea 10/04/20 MDD remove after 12 hours methocarbamol [Robaxin-750] 750 mg PO Q8H PRN #10 tab 10/04/20 naproxen 500 mg PO BID PRN 10 Days #20 tab 10/04/20 ibuprofen 400 mg PO Q6H PRN #20 tab 10/30/20 lidocaine [Lidoderm] 1 patch TOPICAL DAILY PRN #1 ea 10/30/20 omeprazole 40 mg PO DAILY #20 cap 11/04/20 sucralfate [Carafate] 1 g PO BID #30 tab 11/04/20 mupirocin 1 appl TOPICAL BID #15 g 12/04/20 cyclobenzaprine 10 mg PO TID PRN #14 tab 12/07/20 ibuprofen 600 mg PO Q6H PRN #30 tab 12/07/20 lidocaine 1 patch TOPICAL DAILY PRN #10 ea 12/07/20 PNV no.170-iron fum-folic acid 1 tab PO DAILY #30 tab 12/15/20 omeprazole 20 mg PO DAILY #30 cap 12/15/20 cyclobenzaprine 10 mg PO TID PRN #20 tab 12/27/20 lidocaine 1 patch TOPICAL Q24H #15 ea 12/27/20 ondansetron 4 mg PO Q8H PRN #20 tab 01/02/21 naloxone [Narcan] 4 mg INTRANASAL Q3M PRN #2 ea 01/08/21 cyclobenzaprine 10 mg PO TID PRN #10 tab 01/16/21 ketorolac 10 mg PO Q8H PRN #10 tab 01/16/21 ketorolac 10 mg PO Q6H PRN 5 Days #20 tab 01/27/21 Allergies Allergy/AdvReac Type Severity Reaction Status Date / Time Penicillins [PCN] Allergy Mild RASH Verified 01/27/21 05:17 silver AdvReac Intermediate rash Verified 01/27/21 05:17 [From TEGADERM AG MESH] Review of Systems Constitutional: Constitutional: Reports no additional constitutional complaints Eyes: Eyes: Reports no additional eye complaints ENT: Denies dizziness Cardiovascular: Cardiovascular: Reports no additional cardiovascular complaints Respiratory: Respiratory: Reports as per HPI Gastrointestinal: Gastrointestinal: Reports nausea Musculoskeletal: Musculoskeletal: Reports no additional musculoskeletal complaints Integumentary/Breasts: Skin/Breast: Denies rash Neurologic: Reports system reviewed and no additional complaints, except as documented, Denies dizziness and Denies Sensory deficit (Neuro) Psychiatric: Psychiatric: Denies anxiety [facility] Past Medical History Medical History Contusion Foot drop, right foot Heart murmur Schizophrenia Surgical History No pertinent past surgical history Social History Social History Alcohol intake: unknown Smoking Status: Current every day smoker Substance Use Type: Crack/Cocaine, Heroin and Marijuana Advance Directives: No Advance Directives Information Provided: No Physical Exam Vital Signs: Vital Signs: Last Vital Signs Temp 98.0 F 02/03/21 07:08 Pulse 68 02/03/21 07:08 Resp 18 02/03/21 07:08 BP 132/75 02/03/21 07:08 Pulse Ox 100 02/03/21 07:08 Body Mass Index 25.0 Const: General: healthy appearing Nutritional Appearance: average body habitus Orientation/consciousness: oriented to person and patient oriented x3 Limitations: no limitations HENMT: Head: Yes normal to inspection Ears: external ears normal General nose exam: Normal external nose present Mouth: Normal oral and palatal mucosa present and oropharynx normal Throat: Yes posterior oropharynx normal Eyes: General: appearance normal, both eyes and all related structures Neck: Other: supple Neck: Yes normal visual inspection Chest: Chest palpation & inspection: normal inspection of the chest Resp: Auscultation: clear to auscultation bilaterally Cardio: Jugular venous distension: no JVD Rate: regular rate Rhythm: regular rhythm Heart sounds: S1 normal heart sound present and S2 normal heart sound present GI: Other: epigastric tenderness Inspection: Yes normal to inspection Palpation (GI): Soft to palpation, Tenderness to palpation present (GI) and No hepatosplenomegaly present Auscultation: normal bowel sounds : General: Yes no CVA tenderness Back/Spine/Pelvis: Back: no CVA tenderness Skin: General skin exam: no rashes or lesions noted Neuro: General: oriented to person and patient oriented x3 Cranial nerves: Yes CN's II-XII intact bilaterally Motor exam (neuro): 5/5 motor strength present throughout Sensory Exam: No Sensory deficit (Neuro) Extrem: General: Yes normal to inspection Psych: Appearance: grossly normal Discharge Plan Discharge Prescriptions: No Action ketorolac 10 mg tablet 10 mg PO Q6H PRN (Reason: pain) 5 Days Qty: 20 RF: 0 naproxen 500 mg tablet 500 mg PO BID PRN (Reason: pain) Qty: 14 RF: 0 cyclobenzaprine 5 mg tablet 5 mg PO TID PRN (Reason: muscle spasm) Qty: 10 RF: 0 (DME) cane Device See Rx Instructions .ROUTE .MEDSUPPLY Qty: 1 RF: 0 cyclobenzaprine 10 mg tablet 10 mg PO BEDTIME PRN (Reason: muscle spasm) Qty: 3 RF: 0 doxycycline monohydrate 100 mg capsule 100 mg PO BID 7 Days Qty: 14 RF: 0 cephalexin [Keflex] 500 mg capsule 500 mg PO QID 7 Days Qty: 28 RF: 0 lidocaine [Lidoderm] 5 % adhesive patch,medicated 1 patch topical DAILY Qty: 15 RF: 0 ibuprofen 600 mg tablet 600 mg PO Q8H PRN (Reason: pain) Qty: 15 RF: 0 cyclobenzaprine 10 mg tablet 10 mg PO TID PRN (Reason: muscle spasm) Qty: 8 RF: 0 lidocaine [Lidoderm] 5 % adhesive patch,medicated 1 patch topical DAILY PRN (Reason: pain) Qty: 1 RF: 0 ibuprofen 400 mg tablet 400 mg PO Q6H PRN (Reason: pain) Qty: 20 RF: 0 omeprazole 40 mg capsule,delayed release(DR/EC) 40 mg PO DAILY Qty: 20 RF: 0 sucralfate [Carafate] 1 gram tablet 1 g PO BID Qty: 30 RF: 0 mupirocin 2 % ointment 1 appl topical BID Qty: 15 RF: 0 omeprazole 20 mg capsule,delayed release(DR/EC) 20 mg PO DAILY Qty: 30 RF: 0 PNV no.170-iron fum-folic acid 27 mg iron- 1 mg tablet 1 tab PO DAILY Qty: 30 RF: 0 cyclobenzaprine 10 mg tablet 10 mg PO TID PRN (Reason: muscle pain or spasm) Qty: 20 RF: 0 lidocaine 5 % adhesive patch,medicated 1 patch topical Q24H Qty: 15 RF: 0 ondansetron 4 mg tablet,disintegrating 4 mg PO Q8H PRN (Reason: nausea and vomiting) Qty: 20 RF: 0 Narcan 4 mg/actuation spray,non-aerosol 4 mg intranasal Q3M PRN (Reason: opioid overdose) Qty: 2 RF: 0 ketorolac 10 mg tablet 10 mg PO Q6H PRN (Reason: pain) 5 Days Qty: 20 RF: 0 Atarax 100 mg Tablet 100 mg PO NEEDED PRN (Reason: Anxiety) RF: 0 hydrocortisone [Anusol-HC] 2.5 % cream with perineal applicator 1 applic GA BEDTIME PRN (Reason: pain) Qty: 30 RF: 0 polyethylene glycol 3350 [Miralax] 17 gram/dose powder 17 g PO DAILY Qty: 119 RF: 0 cyclobenzaprine 10 mg tablet 10 mg PO TID PRN (Reason: muscle spasm) Qty: 30 RF: 0 tramadol 50 mg tablet 50 mg PO Q8H PRN (Reason: pain) Qty: 12 RF: 0 cyclobenzaprine 5 mg tablet 5 mg PO TID PRN (Reason: muscle spasm) Qty: 5 RF: 0 cyclobenzaprine 10 mg tablet 10 mg PO TID PRN (Reason: muscle spasm) Qty: 20 RF: 0 ketorolac 10 mg tablet 10 mg PO QID 5 Days Qty: 20 RF: 0 methocarbamol [Robaxin-750] 750 mg tablet 750 mg PO Q8H PRN (Reason: pain, severe) Qty: 10 RF: 0 acetaminophen [Tylenol Extra Strength] 500 mg tablet 500 mg PO Q6H PRN (Reason: pain or fever) Qty: 20 RF: 0 lidocaine [Lidoderm] 5 % adhesive patch,medicated 1 patch topical DAILY MDD remove after 12 hours PRN (Reason: pain) Qty: 30 RF: 0 naproxen 500 mg tablet 500 mg PO BID PRN (Reason: pain) 10 Days Qty: 20 RF: 0 cyclobenzaprine 10 mg tablet 10 mg PO TID PRN (Reason: muscle spasm) Qty: 14 RF: 0 lidocaine 4 % adhesive patch,medicated 1 patch topical DAILY PRN (Reason: pain) Qty: 10 RF: 0 ibuprofen 600 mg tablet 600 mg PO Q6H PRN (Reason: pain) Qty: 30 RF: 0 ketorolac 10 mg tablet 10 mg PO Q8H PRN (Reason: pain) Qty: 10 RF: 0 cyclobenzaprine 10 mg tablet 10 mg PO TID PRN (Reason: muscle spasm) Qty: 10 RF: 0
== END 2021-02-03 08:39 | disposition left against medical advice (07) ==
LOC: HO.ED 07:30
PROVIDERS: Emergency Provider Emergency Medicine
DX: R10.13 Epigastric pain (principal); M54.5 Low back pain; F11.90 Opioid use, unspecified, uncomplicated; F17.200 Nicotine dependence, unspecified, uncomplicated; Z79.899 Other long term (current) drug therapy; Z71.6 Tobacco abuse counseling
CPT/HCPCS: 99282; 99283

== ENCOUNTER 2021-02-05 03:00 | Emergency (ER) | payer OTHER, SELFPAY ==
[2021-02-05 03:09] VITALS: BP 138/81; PULSE 80; RESP 16; TEMP 37.1; O2SAT 100; BMI 24.3
[2021-02-05 05:09] LABS: MANUAL DIFF FLAG NO
[2021-02-05 05:10] LABS: Basophils Percent Auto 0.3 % (0-2); Eosinophils Absolute Auto 0.3 X10*3/uL (0.0-0.4); Eosinophils Percent Auto 1.9 % (0-4); Hematocrit 43.4 % (42-52); Hemoglobin 14.5 g/dl (14.0-18.0); Imm Gran Abs Auto 0.05 X10*3/uL (0.00-0.03); Imm Gran Pct Auto 0.4 % (0.0-0.4); Lymphocytes Absolute Auto 2.7 X10*3/uL (1.2-4.9); Lymphocytes Percent Auto 19.1 % (20-40); Mean Corpuscular HGB Conc 33.4 g/dl (31.0-36.0); Mean Corpuscular Hemoglobin 32.7 pg (27.0-33.0); Mean Platelet Volume 9.2 fL (9.4-12.4); Monocytes Absolute Auto 0.6 X10*3/uL (0.1-1.2); Monocytes Percent Auto 3.9 % (2-11); Neutrophils Absolute Auto 10.6 X10*3/uL (2.0-8.3); Neutrophils Percent Auto 74.4 % (45-73); Platelet Count 277 X10*3/uL (160-400); Red Blood Count 4.43 X10*6/uL (4.60-5.80); Red Cell Distribution Width 12.8 % (11.0-16.0); White Blood Count 14.2 X10*3/uL (4.8-10.8)
--- NOTE | 2021-02-05 05:21 | ED_ITS ---
HPI - Abdominal Pain General Chief Complaint: Abdominal Pain Stated Complaint: BLEEDING RECTUM Time Seen by Provider: 02/05/21 04:52 History of Present Illness HPI narrative: Patient complaining of history of having anal fissure hemorrhoids with having streaks of blood mixed with normal stool. Patient denies any abdominal pain or fever no chills no cough no congestion no systemic complaints. Related Data Home Medications Medication Instructions Recorded Confirmed hydroxyzine HCl [Atarax] 100 mg PO NEEDED PRN 08/03/20 08/03/20 Previous Rx's Medication Instructions Recorded hydrocortisone [Anusol-HC] 1 applic SC BEDTIME PRN #30 g 08/13/20 polyethylene glycol 3350 [Miralax] 17 g PO DAILY #119 g 08/13/20 cyclobenzaprine 10 mg PO TID PRN #30 tab 08/15/20 tramadol 50 mg PO Q8H PRN #12 tab 08/15/20 ketorolac 10 mg PO Q6H PRN 5 Days #20 tab 08/17/20 cane #1 ea 09/01/20 cyclobenzaprine 5 mg PO TID PRN #10 tab 09/01/20 naproxen 500 mg PO BID PRN #14 tab 09/01/20 cyclobenzaprine 5 mg PO TID PRN #5 tab 09/08/20 cyclobenzaprine 10 mg PO BEDTIME PRN #3 tab 09/17/20 cyclobenzaprine 10 mg PO TID PRN #20 tab 09/22/20 ketorolac 10 mg PO QID 5 Days #20 tab 09/22/20 cephalexin [Keflex] 500 mg PO QID 7 Days #28 cap 09/26/20 doxycycline monohydrate 100 mg PO BID 7 Days #14 cap 09/26/20 cyclobenzaprine 10 mg PO TID PRN #8 tab 09/29/20 ibuprofen 600 mg PO Q8H PRN #15 tab 09/29/20 lidocaine [Lidoderm] 1 patch TOPICAL DAILY #15 ea 09/29/20 acetaminophen [Tylenol Extra 500 mg PO Q6H PRN #20 tab 10/04/20 Strength] lidocaine [Lidoderm] 1 patch TOPICAL DAILY PRN #30 ea 10/04/20 MDD remove after 12 hours methocarbamol [Robaxin-750] 750 mg PO Q8H PRN #10 tab 10/04/20 naproxen 500 mg PO BID PRN 10 Days #20 tab 10/04/20 ibuprofen 400 mg PO Q6H PRN #20 tab 10/30/20 lidocaine [Lidoderm] 1 patch TOPICAL DAILY PRN #1 ea 10/30/20 omeprazole 40 mg PO DAILY #20 cap 11/04/20 sucralfate [Carafate] 1 g PO BID #30 tab 11/04/20 mupirocin 1 appl TOPICAL BID #15 g 12/04/20 cyclobenzaprine 10 mg PO TID PRN #14 tab 12/07/20 ibuprofen 600 mg PO Q6H PRN #30 tab 12/07/20 lidocaine 1 patch TOPICAL DAILY PRN #10 ea 12/07/20 PNV no.170-iron fum-folic acid 1 tab PO DAILY #30 tab 12/15/20 omeprazole 20 mg PO DAILY #30 cap 12/15/20 cyclobenzaprine 10 mg PO TID PRN #20 tab 12/27/20 lidocaine 1 patch TOPICAL Q24H #15 ea 12/27/20 ondansetron 4 mg PO Q8H PRN #20 tab 01/02/21 naloxone [Narcan] 4 mg INTRANASAL Q3M PRN #2 ea 01/08/21 cyclobenzaprine 10 mg PO TID PRN #10 tab 01/16/21 ketorolac 10 mg PO Q8H PRN #10 tab 01/16/21 ketorolac 10 mg PO Q6H PRN 5 Days #20 tab 01/27/21 Allergies Allergy/AdvReac Type Severity Reaction Status Date / Time Penicillins [PCN] Allergy Mild RASH Verified 01/27/21 05:17 silver AdvReac Intermediate rash Verified 01/27/21 05:17 [From TEGADERM AG MESH] Review of Systems Review of Systems Constitutional: No Weight loss, No Fever, No Chills, No Night Sweats, No Fatigue, No Malaise ENT/Mouth: No Hearing loss, No Ear Pain, No Nasal Congestion, No Sinus Pain, No Hoarseness, No sore throat, No Rhinorrhea, No Swallowing Difficulty Eyes: No Eye Pain, No Swelling, No Redness, No Foreign Body, No Discharge, No Vision Changes Cardiovascular: No Chest Pain, No SOB, No Dyspnea on Exertion, No Orthopnea, No Edema, No Palpitations Respiratory: No Cough, No Sputum, No Wheezing, No Smoke Exposure, No Dyspnea Gastrointestinal: No Nausea, No Vomiting, No Diarrhea, No Constipation, No abdominal Pain, No Hematochezia, No Melena Genitourinary: no irregular bleeding, No Dysuria, No Urinary Frequency, No Hematuria, No Urinary Incontinence, No Urgency, No Flank Pain, No Urinary Flow Changes, No Hesitancy Musculoskeletal: No joint pain, No Myalgias, No Joint Swelling Skin: No Skin Lesions, No rash Neuro: No Weakness, No Numbness, No Paresthesias, No Loss of Consciousness, No Dizziness, No Headache Psych: No Anxiety/Panic, No Depression, No SI/HI/AH/VH, No Social Issues, Heme/Lymph: No Bruising, No Bleeding,No Lymphadenopathy Endocrine: No Polyuria, No Polydipsia, No Temperature Intolerance Physical Exam Vital Signs: Vital Signs: Last Vital Signs Temp 98.7 F 02/05/21 03:09 Pulse 80 02/05/21 03:09 Resp 16 02/05/21 03:09 BP 138/81 02/05/21 03:09 Pulse Ox 100 02/05/21 03:09 Body Mass Index 24.3 Appearance: Alert. Oriented X3. No acute distress. Eyes: Pupils equal, round and reactive to light. ENT: Pharynx normal. Neck: Normal inspection. Neck supple. No lymph nodes noted. No crepitus CVS: Normal heart rate and rhythm. Pulses normal. Normal S1 and S2 Respiratory: No respiratory distress. Breath sounds normal. No Wheezing. No rales Abdomen: Soft and nontender. No rigidity. No distention. good BS x4 Skin: Skin warm and dry. Normal skin color. Normal skin turgor. Extremities: No lower extremity edema. Neurovascular intact to all extremities. No Lacerations. No Rash Neuro: Oriented X 3. No motor deficit. No sensory deficit. Moving all extermities. No slurred speech MDM - Abdominal Pain MDM Narrative Medical decision making narrative: History of the same. Patient's hemoglobin is normal. Positive normal stool. Likely bleeding from hemorrhoid or anal fissure. Will have patient follow-up on an outpatient basis. Lab Data Result diagrams: 02/05/21 05:05 Labs: Lab Results 02/05/21 Range/Units 05:05 WBC 14.2 H (4.8-10.8) X10*3/uL RBC 4.43 L (4.60-5.80) X10*6/uL Hgb 14.5 (14.0-18.0) g/dl Hct 43.4 (42-52) % MCV 98.0 (80-98) fL MCH 32.7 (27.0-33.0) pg MCHC 33.4 (31.0-36.0) g/dl RDW 12.8 (11.0-16.0) % Plt Count 277 D (160-400) X10*3/uL MPV 9.2 L (9.4-12.4) fL Immature Gran % (Auto) 0.4 (0.0-0.4) % Neut % (Auto) 74.4 H (45-73) % Lymph % (Auto) 19.1 L (20-40) % Lanier % (Auto) 3.9 (2-11) % Eos % (Auto) 1.9 (0-4) % Baso % (Auto) 0.3 (0-2) % Lymph # (Auto) 2.7 (1.2-4.9) X10*3/uL Lanier # (Auto) 0.6 (0.1-1.2) X10*3/uL Eos # (Auto) 0.3 (0.0-0.4) X10*3/uL Baso # (Auto) 0.0 (0.0-0.2) X10*3/uL Abs Immat Gran (auto) 0.05 H (0.00-0.03) X10*3/uL Absolute Neuts (auto) 10.6 H (2.0-8.3) X10*3/uL Absolute Nucleated RBC 0.000 (0.0-0.012) X10*3/uL Nucleated RBC % (auto) 0.0 (0.0-0.2) /100WBC Discharge Plan Discharge Clinical Impression: Schizophrenia, External hemorrhoid Patient Disposition: Home, Self-Care Instructions: Hemorrhoids (ED) Prescriptions: No Action ketorolac 10 mg tablet 10 mg PO Q6H PRN (Reason: pain) 5 Days Qty: 20 RF: 0 naproxen 500 mg tablet 500 mg PO BID PRN (Reason: pain) Qty: 14 RF: 0 cyclobenzaprine 5 mg tablet 5 mg PO TID PRN (Reason: muscle spasm) Qty: 10 RF: 0 (DME) cane Device See Rx Instructions .ROUTE .MEDSUPPLY Qty: 1 RF: 0 cyclobenzaprine 10 mg tablet 10 mg PO BEDTIME PRN (Reason: muscle spasm) Qty: 3 RF: 0 doxycycline monohydrate 100 mg capsule 100 mg PO BID 7 Days Qty: 14 RF: 0 cephalexin [Keflex] 500 mg capsule 500 mg PO QID 7 Days Qty: 28 RF: 0 lidocaine [Lidoderm] 5 % adhesive patch,medicated 1 patch topical DAILY Qty: 15 RF: 0 ibuprofen 600 mg tablet 600 mg PO Q8H PRN (Reason: pain) Qty: 15 RF: 0 cyclobenzaprine 10 mg tablet 10 mg PO TID PRN (Reason: muscle spasm) Qty: 8 RF: 0 lidocaine [Lidoderm] 5 % adhesive patch,medicated 1 patch topical DAILY PRN (Reason: pain) Qty: 1 RF: 0 ibuprofen 400 mg tablet 400 mg PO Q6H PRN (Reason: pain) Qty: 20 RF: 0 omeprazole 40 mg capsule,delayed release(DR/EC) 40 mg PO DAILY Qty: 20 RF: 0 sucralfate [Carafate] 1 gram tablet 1 g PO BID Qty: 30 RF: 0 mupirocin 2 % ointment 1 appl topical BID Qty: 15 RF: 0 omeprazole 20 mg capsule,delayed release(DR/EC) 20 mg PO DAILY Qty: 30 RF: 0 PNV no.170-iron fum-folic acid 27 mg iron- 1 mg tablet 1 tab PO DAILY Qty: 30 RF: 0 cyclobenzaprine 10 mg tablet 10 mg PO TID PRN (Reason: muscle pain or spasm) Qty: 20 RF: 0 lidocaine 5 % adhesive patch,medicated 1 patch topical Q24H Qty: 15 RF: 0 ondansetron 4 mg tablet,disintegrating 4 mg PO Q8H PRN (Reason: nausea and vomiting) Qty: 20 RF: 0 Narcan 4 mg/actuation spray,non-aerosol 4 mg intranasal Q3M PRN (Reason: opioid overdose) Qty: 2 RF: 0 ketorolac 10 mg tablet 10 mg PO Q6H PRN (Reason: pain) 5 Days Qty: 20 RF: 0 Atarax 100 mg Tablet 100 mg PO NEEDED PRN (Reason: Anxiety) RF: 0 hydrocortisone [Anusol-HC] 2.5 % cream with perineal applicator 1 applic SC BEDTIME PRN (Reason: pain) Qty: 30 RF: 0 polyethylene glycol 3350 [Miralax] 17 gram/dose powder 17 g PO DAILY Qty: 119 RF: 0 cyclobenzaprine 10 mg tablet 10 mg PO TID PRN (Reason: muscle spasm) Qty: 30 RF: 0 tramadol 50 mg tablet 50 mg PO Q8H PRN (Reason: pain) Qty: 12 RF: 0 cyclobenzaprine 5 mg tablet 5 mg PO TID PRN (Reason: muscle spasm) Qty: 5 RF: 0 cyclobenzaprine 10 mg tablet 10 mg PO TID PRN (Reason: muscle spasm) Qty: 20 RF: 0 ketorolac 10 mg tablet 10 mg PO QID 5 Days Qty: 20 RF: 0 methocarbamol [Robaxin-750] 750 mg tablet 750 mg PO Q8H PRN (Reason: pain, severe) Qty: 10 RF: 0 acetaminophen [Tylenol Extra Strength] 500 mg tablet 500 mg PO Q6H PRN (Reason: pain or fever) Qty: 20 RF: 0 lidocaine [Lidoderm] 5 % adhesive patch,medicated 1 patch topical DAILY MDD remove after 12 hours PRN (Reason: pain) Qty: 30 RF: 0 naproxen 500 mg tablet 500 mg PO BID PRN (Reason: pain) 10 Days Qty: 20 RF: 0 cyclobenzaprine 10 mg tablet 10 mg PO TID PRN (Reason: muscle spasm) Qty: 14 RF: 0 lidocaine 4 % adhesive patch,medicated 1 patch topical DAILY PRN (Reason: pain) Qty: 10 RF: 0 ibuprofen 600 mg tablet 600 mg PO Q6H PRN (Reason: pain) Qty: 30 RF: 0 ketorolac 10 mg tablet 10 mg PO Q8H PRN (Reason: pain) Qty: 10 RF: 0 cyclobenzaprine 10 mg tablet 10 mg PO TID PRN (Reason: muscle spasm) Qty: 10 RF: 0 Referrals: Physician,Unknown [Primary Care Provider] - 2 days [facility] Past Medical History Medical History Contusion Foot drop, right foot Heart murmur Schizophrenia Surgical History (Reviewed 02/05/21 @ 05: by Yesenia Frazier MD) No pertinent past surgical history Social History Social History Alcohol intake: unknown Smoking Status: Current every day smoker Substance Use Type: Crack/Cocaine, Heroin and Marijuana Advance Directives: No Advance Directives Information Provided: No
== END 2021-02-05 05:39 | disposition home or self-care (01) ==
PROVIDERS: Emergency Provider Emergency Medicine Emergency Medical Services
DX: F20.9 Schizophrenia, unspecified (principal); K64.4 Residual hemorrhoidal skin tags; F11.90 Opioid use, unspecified, uncomplicated; F12.90 Cannabis use, unspecified, uncomplicated; F14.90 Cocaine use, unspecified, uncomplicated; F17.200 Nicotine dependence, unspecified, uncomplicated; Z71.6 Tobacco abuse counseling; Z79.899 Other long term (current) drug therapy
CPT/HCPCS: 36415; 85025; 99283

== ENCOUNTER 2021-02-06 04:43 | Emergency (ER) | payer OTHER, SELFPAY ==
[2021-02-06 04:55] VITALS: BP 109/87; PULSE 99; RESP 16; TEMP 37.1; O2SAT 96; BMI 24.3
== END 2021-02-06 06:36 | disposition left against medical advice (07) ==
PROVIDERS: Emergency Provider Emergency Medicine
DX: M54.9 Dorsalgia, unspecified (principal); M25.561 Pain in right knee
CPT/HCPCS: 99281; 99282

== ENCOUNTER 2021-02-10 10:05 | Emergency (ER) | payer OTHER, SELFPAY ==
--- NOTE | ~2021-02-10 | XR_ITS ---
EXAMINATION: XR CHEST CLINICAL INFORMATION: Cough. COMPARISON: Chest 03/07/2021 TECHNIQUE: Frontal view of the chest was obtained. FINDINGS: No significant abnormality is noted involving the heart, lungs, mediastinum, bony thorax or soft tissues. XR/XR chest 1V IMPRESSION: Unremarkable chest examination.
[2021-02-10 10:26] VITALS: BP 138/82; PULSE 72; RESP 18; TEMP 36.9; O2SAT 100; BMI 22.0
--- NOTE | 2021-02-10 10:47 | ED.URI ---
HPI - URI/Sore Throat General Chief Complaint: Upper Respiratory Symptoms Stated Complaint: covid+ Time Seen by Provider: 02/10/21 10:47 History of Present Illness HPI Narrative: Patient is COVID positive having been tested 3 days ago and comes in complaining of frequent nausea some vomiting diarrhea cough nonproductive and feeling body aches and fatigue Related Data Home Medications Medication Instructions Recorded Confirmed hydroxyzine HCl [Atarax] 100 mg PO NEEDED PRN 08/03/20 08/03/20 Previous Rx's Medication Instructions Recorded hydrocortisone [Anusol-HC] 1 applic DE BEDTIME PRN #30 g 08/13/20 polyethylene glycol 3350 [Miralax] 17 g PO DAILY #119 g 08/13/20 cyclobenzaprine 10 mg PO TID PRN #30 tab 08/15/20 tramadol 50 mg PO Q8H PRN #12 tab 08/15/20 ketorolac 10 mg PO Q6H PRN 5 Days #20 tab 08/17/20 cane #1 ea 09/01/20 cyclobenzaprine 5 mg PO TID PRN #10 tab 09/01/20 naproxen 500 mg PO BID PRN #14 tab 09/01/20 cyclobenzaprine 5 mg PO TID PRN #5 tab 09/08/20 cyclobenzaprine 10 mg PO BEDTIME PRN #3 tab 09/17/20 cyclobenzaprine 10 mg PO TID PRN #20 tab 09/22/20 ketorolac 10 mg PO QID 5 Days #20 tab 09/22/20 cephalexin [Keflex] 500 mg PO QID 7 Days #28 cap 09/26/20 doxycycline monohydrate 100 mg PO BID 7 Days #14 cap 09/26/20 cyclobenzaprine 10 mg PO TID PRN #8 tab 09/29/20 ibuprofen 600 mg PO Q8H PRN #15 tab 09/29/20 lidocaine [Lidoderm] 1 patch TOPICAL DAILY #15 ea 09/29/20 acetaminophen [Tylenol Extra 500 mg PO Q6H PRN #20 tab 10/04/20 Strength] lidocaine [Lidoderm] 1 patch TOPICAL DAILY PRN #30 ea 10/04/20 MDD remove after 12 hours methocarbamol [Robaxin-750] 750 mg PO Q8H PRN #10 tab 10/04/20 naproxen 500 mg PO BID PRN 10 Days #20 tab 10/04/20 ibuprofen 400 mg PO Q6H PRN #20 tab 10/30/20 lidocaine [Lidoderm] 1 patch TOPICAL DAILY PRN #1 ea 10/30/20 omeprazole 40 mg PO DAILY #20 cap 11/04/20 sucralfate [Carafate] 1 g PO BID #30 tab 11/04/20 mupirocin 1 appl TOPICAL BID #15 g 12/04/20 cyclobenzaprine 10 mg PO TID PRN #14 tab 12/07/20 ibuprofen 600 mg PO Q6H PRN #30 tab 12/07/20 lidocaine 1 patch TOPICAL DAILY PRN #10 ea 12/07/20 PNV no.170-iron fum-folic acid 1 tab PO DAILY #30 tab 12/15/20 omeprazole 20 mg PO DAILY #30 cap 12/15/20 cyclobenzaprine 10 mg PO TID PRN #20 tab 12/27/20 lidocaine 1 patch TOPICAL Q24H #15 ea 12/27/20 ondansetron 4 mg PO Q8H PRN #20 tab 01/02/21 naloxone [Narcan] 4 mg INTRANASAL Q3M PRN #2 ea 01/08/21 cyclobenzaprine 10 mg PO TID PRN #10 tab 01/16/21 ketorolac 10 mg PO Q8H PRN #10 tab 01/16/21 ketorolac 10 mg PO Q6H PRN 5 Days #20 tab 01/27/21 ibuprofen 600 mg PO Q6H PRN #20 tab 02/10/21 loperamide [Anti-Diarrheal 2 mg PO Q4H PRN #10 tab 02/10/21 (loperamide)] ondansetron HCl [Zofran] 4 mg PO Q6H PRN #14 tab 02/10/21 ondansetron 4 mg PO Q6-8H PRN #14 tab 02/13/21 pantoprazole [Protonix] 20 mg PO DAILY #30 tab 02/13/21 Allergies Allergy/AdvReac Type Severity Reaction Status Date / Time Penicillins [PCN] Allergy Mild RASH Verified 01/27/21 05:17 silver AdvReac Intermediate rash Verified 01/27/21 05:17 [From TEGADERM AG MESH] Review of Systems Review of Systems: COVID positive complains of cough, body aches, nausea and diarrhea Negatives are no fever no chills no dizziness no weakness no confusion no headache no neck pain no shortness of breath no chest pain no abdominal pain no changes in urination, no dysuria no frequency no skin rash PMFSH Past Medical History Source: nursing notes reviewed Medical History Contusion Foot drop, right foot Heart murmur Schizophrenia Surgical History No pertinent past surgical history Social History Social History Alcohol intake: unknown Smoking Status: Current every day smoker Use of substances other than those prescribed or required for medical reasons: Yes Substance Use Type: Marijuana Substance Use Frequency: Daily Advance Directives: No Physical Exam Vital Signs: Vital Signs: Last Vital Signs Temp 98.5 F 02/10/21 10:26 Pulse 72 02/10/21 10:26 Resp 18 02/10/21 10:26 BP 138/82 02/10/21 10:26 Pulse Ox 100 02/10/21 10:26 Body Mass Index 22.0 General appearance no acute distress, common cooperative The eyes no discharge or redness The neck was supple The chest clear to auscultation bilaterally with symmetric equal breath sounds The heart no murmur Abdomen was soft and nontender Extremities full range of motion x4, no calf tenderness or swelling no edema Skin no rash Neuro no focal deficit Course Course Course Narrative: Chest x-ray was negative, patient was tolerating p.o., no shortness of breath, nontender abdomen and was discharged home with warnings to return any time if worse Discharge Plan Discharge Clinical Impression: COVID-19 Patient Disposition: Home, Self-Care Additional Instructions: Your chest x-ray was normal You can use Motrin and/or Tylenol for aches and pains You can use Zofran tablets for nausea You can use Imodium as needed for diarrhea Drink plenty of fluids For the sore in her nose you can apply Vaseline to moisturize it, and saline nose spray available [id number] will be helpful too Return to the ER any time any worse condition or any concerns Prescriptions: New ondansetron HCl [Zofran] 4 mg tablet 4 mg PO Q6H PRN (Reason: nausea and vomiting) Qty: 14 RF: 0 loperamide [Anti-Diarrheal (loperamide)] 2 mg tablet 2 mg PO Q4H PRN (Reason: loose stool) Qty: 10 RF: 0 ibuprofen 600 mg tablet 600 mg PO Q6H PRN (Reason: fever or pain) Qty: 20 RF: 0 No Action ketorolac 10 mg tablet 10 mg PO Q6H PRN (Reason: pain) 5 Days Qty: 20 RF: 0 naproxen 500 mg tablet 500 mg PO BID PRN (Reason: pain) Qty: 14 RF: 0 cyclobenzaprine 5 mg tablet 5 mg PO TID PRN (Reason: muscle spasm) Qty: 10 RF: 0 (DME) cane Device See Rx Instructions .ROUTE .MEDSUPPLY Qty: 1 RF: 0 cyclobenzaprine 10 mg tablet 10 mg PO BEDTIME PRN (Reason: muscle spasm) Qty: 3 RF: 0 doxycycline monohydrate 100 mg capsule 100 mg PO BID 7 Days Qty: 14 RF: 0 cephalexin [Keflex] 500 mg capsule 500 mg PO QID 7 Days Qty: 28 RF: 0 lidocaine [Lidoderm] 5 % adhesive patch,medicated 1 patch topical DAILY Qty: 15 RF: 0 ibuprofen 600 mg tablet 600 mg PO Q8H PRN (Reason: pain) Qty: 15 RF: 0 cyclobenzaprine 10 mg tablet 10 mg PO TID PRN (Reason: muscle spasm) Qty: 8 RF: 0 lidocaine [Lidoderm] 5 % adhesive patch,medicated 1 patch topical DAILY PRN (Reason: pain) Qty: 1 RF: 0 ibuprofen 400 mg tablet 400 mg PO Q6H PRN (Reason: pain) Qty: 20 RF: 0 omeprazole 40 mg capsule,delayed release(DR/EC) 40 mg PO DAILY Qty: 20 RF: 0 sucralfate [Carafate] 1 gram tablet 1 g PO BID Qty: 30 RF: 0 mupirocin 2 % ointment 1 appl topical BID Qty: 15 RF: 0 omeprazole 20 mg capsule,delayed release(DR/EC) 20 mg PO DAILY Qty: 30 RF: 0 PNV no.170-iron fum-folic acid 27 mg iron- 1 mg tablet 1 tab PO DAILY Qty: 30 RF: 0 cyclobenzaprine 10 mg tablet 10 mg PO TID PRN (Reason: muscle pain or spasm) Qty: 20 RF: 0 lidocaine 5 % adhesive patch,medicated 1 patch topical Q24H Qty: 15 RF: 0 ondansetron 4 mg tablet,disintegrating 4 mg PO Q8H PRN (Reason: nausea and vomiting) Qty: 20 RF: 0 Narcan 4 mg/actuation spray,non-aerosol 4 mg intranasal Q3M PRN (Reason: opioid overdose) Qty: 2 RF: 0 ketorolac 10 mg tablet 10 mg PO Q6H PRN (Reason: pain) 5 Days Qty: 20 RF: 0 Atarax 100 mg Tablet 100 mg PO NEEDED PRN (Reason: Anxiety) RF: 0 hydrocortisone [Anusol-HC] 2.5 % cream with perineal applicator 1 applic DE BEDTIME PRN (Reason: pain) Qty: 30 RF: 0 polyethylene glycol 3350 [Miralax] 17 gram/dose powder 17 g PO DAILY Qty: 119 RF: 0 cyclobenzaprine 10 mg tablet 10 mg PO TID PRN (Reason: muscle spasm) Qty: 30 RF: 0 tramadol 50 mg tablet 50 mg PO Q8H PRN (Reason: pain) Qty: 12 RF: 0 cyclobenzaprine 5 mg tablet 5 mg PO TID PRN (Reason: muscle spasm) Qty: 5 RF: 0 cyclobenzaprine 10 mg tablet 10 mg PO TID PRN (Reason: muscle spasm) Qty: 20 RF: 0 ketorolac 10 mg tablet 10 mg PO QID 5 Days Qty: 20 RF: 0 methocarbamol [Robaxin-750] 750 mg tablet 750 mg PO Q8H PRN (Reason: pain, severe) Qty: 10 RF: 0 acetaminophen [Tylenol Extra Strength] 500 mg tablet 500 mg PO Q6H PRN (Reason: pain or fever) Qty: 20 RF: 0 lidocaine [Lidoderm] 5 % adhesive patch,medicated 1 patch topical DAILY MDD remove after 12 hours PRN (Reason: pain) Qty: 30 RF: 0 naproxen 500 mg tablet 500 mg PO BID PRN (Reason: pain) 10 Days Qty: 20 RF: 0 cyclobenzaprine 10 mg tablet 10 mg PO TID PRN (Reason: muscle spasm) Qty: 14 RF: 0 lidocaine 4 % adhesive patch,medicated 1 patch topical DAILY PRN (Reason: pain) Qty: 10 RF: 0 ibuprofen 600 mg tablet 600 mg PO Q6H PRN (Reason: pain) Qty: 30 RF: 0 ketorolac 10 mg tablet 10 mg PO Q8H PRN (Reason: pain) Qty: 10 RF: 0 cyclobenzaprine 10 mg tablet 10 mg PO TID PRN (Reason: muscle spasm) Qty: 10 RF: 0 pantoprazole [Protonix] 20 mg tablet,delayed release (DR/EC) 20 mg PO DAILY Qty: 30 RF: 0 ondansetron 4 mg tablet,disintegrating 4 mg PO Q6-8H PRN (Reason: nausea and vomiting) Qty: 14 RF: 0 Interventions: ED Discharge Assessment Last Done: 02/10/21 11:44 Discharge Date/Time: 02/10/21 12:09
[2021-02-10] MEDS: Acetaminophen 325 MG TABLET 650 MG PO (10:58)
== END 2021-02-10 12:09 | disposition home or self-care (01) ==
PROVIDERS: Emergency Provider Emergency Medicine
DX: U07.1 COVID-19 (principal); R11.2 Nausea with vomiting, unspecified; R19.7 Diarrhea, unspecified; F12.90 Cannabis use, unspecified, uncomplicated; F17.200 Nicotine dependence, unspecified, uncomplicated
CPT/HCPCS: 71045; 99283

== ENCOUNTER 2021-02-13 06:07 | Emergency (ER) | payer OTHER, SELFPAY ==
--- NOTE | 2021-02-13 08:07 | ED.GENADULT ---
HPI - General Adult General Chief complaint: Abdominal Pain Stated complaint: Covid + Abdominal Pain Time Seen by Provider: 02/13/21 06:48 Source: patient Mode of arrival: ambulatory Limitations: no limitations History of Present Illness HPI narrative: 36-year-old male who presents emergency department for evaluation of abdominal pain. The patient states that he woke up at 3:00 a.m. with epigastric pain. He describes the pain as a constant, squeezing sensation which is 9/10 at its worst. Patient states that he had similar pain 3 months prior. He states that today's pain is worse if he eats food. He states he has had associated nausea but no vomiting. Patient states he feels constipated and has not moved his bowels in several days. The patient states that he tested positive for COVID-19 approximately 1 month prior, at that time he had cough, fever, chills, diarrhea and weakness. He states that he is still feeling weak and he does not believe that he has fully recovered from the virus yet. He denies any frequency, urgency, dysuria, dark tarry stools or bloody stools. Related Data Home Medications Medication Instructions Recorded Confirmed hydroxyzine HCl [Atarax] 100 mg PO NEEDED PRN 08/03/20 08/03/20 Previous Rx's Medication Instructions Recorded hydrocortisone [Anusol-HC] 1 applic [place] BEDTIME PRN #30 g 08/13/20 polyethylene glycol 3350 [Miralax] 17 g PO DAILY #119 g 08/13/20 cyclobenzaprine 10 mg PO TID PRN #30 tab 08/15/20 tramadol 50 mg PO Q8H PRN #12 tab 08/15/20 ketorolac 10 mg PO Q6H PRN 5 Days #20 tab 08/17/20 cane #1 ea 09/01/20 cyclobenzaprine 5 mg PO TID PRN #10 tab 09/01/20 naproxen 500 mg PO BID PRN #14 tab 09/01/20 cyclobenzaprine 5 mg PO TID PRN #5 tab 09/08/20 cyclobenzaprine 10 mg PO BEDTIME PRN #3 tab 09/17/20 cyclobenzaprine 10 mg PO TID PRN #20 tab 09/22/20 ketorolac 10 mg PO QID 5 Days #20 tab 09/22/20 cephalexin [Keflex] 500 mg PO QID 7 Days #28 cap 09/26/20 doxycycline monohydrate 100 mg PO BID 7 Days #14 cap 09/26/20 cyclobenzaprine 10 mg PO TID PRN #8 tab 09/29/20 ibuprofen 600 mg PO Q8H PRN #15 tab 09/29/20 lidocaine [Lidoderm] 1 patch TOPICAL DAILY #15 ea 09/29/20 acetaminophen [Tylenol Extra 500 mg PO Q6H PRN #20 tab 10/04/20 Strength] lidocaine [Lidoderm] 1 patch TOPICAL DAILY PRN #30 ea 10/04/20 MDD remove after 12 hours methocarbamol [Robaxin-750] 750 mg PO Q8H PRN #10 tab 10/04/20 naproxen 500 mg PO BID PRN 10 Days #20 tab 10/04/20 ibuprofen 400 mg PO Q6H PRN #20 tab 10/30/20 lidocaine [Lidoderm] 1 patch TOPICAL DAILY PRN #1 ea 10/30/20 omeprazole 40 mg PO DAILY #20 cap 11/04/20 sucralfate [Carafate] 1 g PO BID #30 tab 11/04/20 mupirocin 1 appl TOPICAL BID #15 g 12/04/20 cyclobenzaprine 10 mg PO TID PRN #14 tab 12/07/20 ibuprofen 600 mg PO Q6H PRN #30 tab 12/07/20 lidocaine 1 patch TOPICAL DAILY PRN #10 ea 12/07/20 PNV no.170-iron fum-folic acid 1 tab PO DAILY #30 tab 12/15/20 omeprazole 20 mg PO DAILY #30 cap 12/15/20 cyclobenzaprine 10 mg PO TID PRN #20 tab 12/27/20 lidocaine 1 patch TOPICAL Q24H #15 ea 12/27/20 ondansetron 4 mg PO Q8H PRN #20 tab 01/02/21 naloxone [Narcan] 4 mg INTRANASAL Q3M PRN #2 ea 01/08/21 cyclobenzaprine 10 mg PO TID PRN #10 tab 01/16/21 ketorolac 10 mg PO Q8H PRN #10 tab 01/16/21 ketorolac 10 mg PO Q6H PRN 5 Days #20 tab 01/27/21 ibuprofen 600 mg PO Q6H PRN #20 tab 02/10/21 loperamide [Anti-Diarrheal 2 mg PO Q4H PRN #10 tab 02/10/21 (loperamide)] ondansetron HCl [Zofran] 4 mg PO Q6H PRN #14 tab 02/10/21 ondansetron 4 mg PO Q6-8H PRN #14 tab 02/13/21 pantoprazole [Protonix] 20 mg PO DAILY #30 tab 02/13/21 Allergies Allergy/AdvReac Type Severity Reaction Status Date / Time Penicillins [PCN] Allergy Mild RASH Verified 01/27/21 05:17 silver AdvReac Intermediate rash Verified 01/27/21 05:17 [From [email or web address] MESH] Review of Systems Review of Systems: Yes all other systems are reviewed and are negative [facility] Past Medical History [facility] Narrative: The patient denies alcohol use, he does cigarettes, 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 Medical History Contusion Foot drop, right foot Heart murmur Schizophrenia Surgical History No pertinent past surgical history Social History Social History Alcohol intake: unknown Smoking Status: Current every day smoker Use of substances other than those prescribed or required for medical reasons: Yes Substance Use Type: Marijuana Substance Use Frequency: Daily Advance Directives: No Physical Exam Const: General: cooperative and healthy appearing Orientation/consciousness: oriented to person and oriented to place Limitations: no limitations HENMT: Head: Yes normal to inspection, Yes normocephalic and Yes atraumatic Ears: external ears normal General nose exam: Normal external nose present Face and sinus: Yes normal facial exam Mouth: Normal oral and palatal mucosa present Throat: Yes posterior oropharynx normal Eyes: Periorbital: periorbital findings normal Eyelids: Yes eyelids normal Conjunctivae: conjunctivae normal Sclerae: sclerae normal Corneas: corneas normal Pupils: Equal, round and reactive pupils present Direct Ophthalmoscopy: normal light reflex Neck: Neck: Yes full ROM, Yes no lymphadenopathy, Yes no meningeal signs, Yes trachea midline and Yes supple Chest: Chest palpation & inspection: normal inspection of the chest and normal palpation of entire chest wall Resp: Effort & Inspection: normal respiratory effort and able to speak in complete sentences Auscultation: clear to auscultation bilaterally Cardio: Rate: regular rate Rhythm: regular rhythm Heart sounds: S1 normal heart sound present, S2 normal heart sound present and no murmurs GI: Inspection: Yes normal to inspection Palpation (GI): Soft to palpation, Tenderness to palpation present (GI) in the epigastrum ( Moderate), no guarding, not rigid and No hepatosplenomegaly present Auscultation: normal bowel sounds : General: Yes no CVA tenderness Back/Spine/Pelvis: Back: no CVA tenderness Cervical Spine: normal cervical lordosis Thoracic/Lumbar Spine: thoracic and lumbar spine normal to inspection Skin: Lesions: no lesions Rashes: no rashes Wounds: no wounds Neuro: General: oriented to person, oriented to place and no meningeal signs Cranial nerves: Yes CN's II-XII intact bilaterally and Yes Equal, round and reactive pupils present Cognition (Neuro): normal cognition Motor exam (neuro): 5/5 motor strength present throughout Extrem: General: Yes normal to inspection and Yes full ROM Psych: Appearance: well kempt Mental Status: mental status grossly normal Speech and movement: Normal speech and movement present Affect: normal affect Attitude: cooperative Thought process: Normal thought process present Thought content: Normal thought content present Course Course Course Narrative: 36-year-old male who presents emergency department for evaluation of epigastric pain which began at 3:00 a.m.. Patient was COVID 19 positive approximately 1 month prior and most of his symptoms resolved except for fatigue. The patient's exam did reveal midepigastric tenderness otherwise was unremarkable. His presentation is consistent with acute gastritis. He has had similar gastritis in the past. The patient will be started on Protonix 20 mg once a day for 1 month. He was also given prescription for Zofran for his nausea. was given verbal and printed instructions and discharged home. Discharge Plan Discharge Clinical Impression: Nausea Gastritis Qualifiers: Gastritis type: unspecified gastritis Chronicity: acute Gastritis bleeding: without bleeding Qualified Code(s): K29.00 - Acute gastritis without bleeding Patient Disposition: Home, Self-Care Instructions: Gastritis (ED) Additional Instructions: your symptoms and physical exam are consistent with gastritis (inflammation of your stomach caused by too much acid). take Protonix 20 mg pills, 1 pill once a day for 1 month, this will shut off your acid production your stomach and help you stomach heel. Take ondansetron ( Zofran) 4 mg ODT, 1 pill dissolved in your mouth every 6-8 hours as needed for nausea and vomiting. Your COVID infection was 1 month prior, based on the symptoms that you are having, I do not think that she our Infectious anymore in you do not need to isolate yourself from your family or friends. Follow-up with your doctor in 2 days. Please return to the emergency department if your symptoms get worse or if you develop any symptoms that are concerning to you. Prescriptions: New pantoprazole [Protonix] 20 mg tablet,delayed release (DR/EC) 20 mg PO DAILY Qty: 30 RF: 0 ondansetron 4 mg tablet,disintegrating 4 mg PO Q6-8H PRN (Reason: nausea and vomiting) Qty: 14 RF: 0 No Action ketorolac 10 mg tablet 10 mg PO Q6H PRN (Reason: pain) 5 Days Qty: 20 RF: 0 naproxen 500 mg tablet 500 mg PO BID PRN (Reason: pain) Qty: 14 RF: 0 cyclobenzaprine 5 mg tablet 5 mg PO TID PRN (Reason: muscle spasm) Qty: 10 RF: 0 (DME) cane Device See Rx Instructions .ROUTE .MEDSUPPLY Qty: 1 RF: 0 cyclobenzaprine 10 mg tablet 10 mg PO BEDTIME PRN (Reason: muscle spasm) Qty: 3 RF: 0 doxycycline monohydrate 100 mg capsule 100 mg PO BID 7 Days Qty: 14 RF: 0 cephalexin [Keflex] 500 mg capsule 500 mg PO QID 7 Days Qty: 28 RF: 0 lidocaine [Lidoderm] 5 % adhesive patch,medicated 1 patch topical DAILY Qty: 15 RF: 0 ibuprofen 600 mg tablet 600 mg PO Q8H PRN (Reason: pain) Qty: 15 RF: 0 cyclobenzaprine 10 mg tablet 10 mg PO TID PRN (Reason: muscle spasm) Qty: 8 RF: 0 lidocaine [Lidoderm] 5 % adhesive patch,medicated 1 patch topical DAILY PRN (Reason: pain) Qty: 1 RF: 0 ibuprofen 400 mg tablet 400 mg PO Q6H PRN (Reason: pain) Qty: 20 RF: 0 omeprazole 40 mg capsule,delayed release(DR/EC) 40 mg PO DAILY Qty: 20 RF: 0 sucralfate [Carafate] 1 gram tablet 1 g PO BID Qty: 30 RF: 0 mupirocin 2 % ointment 1 appl topical BID Qty: 15 RF: 0 omeprazole 20 mg capsule,delayed release(DR/EC) 20 mg PO DAILY Qty: 30 RF: 0 PNV no.170-iron fum-folic acid 27 mg iron- 1 mg tablet 1 tab PO DAILY Qty: 30 RF: 0 cyclobenzaprine 10 mg tablet 10 mg PO TID PRN (Reason: muscle pain or spasm) Qty: 20 RF: 0 lidocaine 5 % adhesive patch,medicated 1 patch topical Q24H Qty: 15 RF: 0 ondansetron 4 mg tablet,disintegrating 4 mg PO Q8H PRN (Reason: nausea and vomiting) Qty: 20 RF: 0 Narcan 4 mg/actuation spray,non-aerosol 4 mg intranasal Q3M PRN (Reason: opioid overdose) Qty: 2 RF: 0 ketorolac 10 mg tablet 10 mg PO Q6H PRN (Reason: pain) 5 Days Qty: 20 RF: 0 ondansetron HCl [Zofran] 4 mg tablet 4 mg PO Q6H PRN (Reason: nausea and vomiting) Qty: 14 RF: 0 loperamide [Anti-Diarrheal (loperamide)] 2 mg tablet 2 mg PO Q4H PRN (Reason: loose stool) Qty: 10 RF: 0 ibuprofen 600 mg tablet 600 mg PO Q6H PRN (Reason: fever or pain) Qty: 20 RF: 0 Atarax 100 mg Tablet 100 mg PO NEEDED PRN (Reason: Anxiety) RF: 0 hydrocortisone [Anusol-HC] 2.5 % cream with perineal applicator 1 applic [place] BEDTIME PRN (Reason: pain) Qty: 30 RF: 0 polyethylene glycol 3350 [Miralax] 17 gram/dose powder 17 g PO DAILY Qty: 119 RF: 0 cyclobenzaprine 10 mg tablet 10 mg PO TID PRN (Reason: muscle spasm) Qty: 30 RF: 0 tramadol 50 mg tablet 50 mg PO Q8H PRN (Reason: pain) Qty: 12 RF: 0 cyclobenzaprine 5 mg tablet 5 mg PO TID PRN (Reason: muscle spasm) Qty: 5 RF: 0 cyclobenzaprine 10 mg tablet 10 mg PO TID PRN (Reason: muscle spasm) Qty: 20 RF: 0 ketorolac 10 mg tablet 10 mg PO QID 5 Days Qty: 20 RF: 0 methocarbamol [Robaxin-750] 750 mg tablet 750 mg PO Q8H PRN (Reason: pain, severe) Qty: 10 RF: 0 acetaminophen [Tylenol Extra Strength] 500 mg tablet 500 mg PO Q6H PRN (Reason: pain or fever) Qty: 20 RF: 0 lidocaine [Lidoderm] 5 % adhesive patch,medicated 1 patch topical DAILY MDD remove after 12 hours PRN (Reason: pain) Qty: 30 RF: 0 naproxen 500 mg tablet 500 mg PO BID PRN (Reason: pain) 10 Days Qty: 20 RF: 0 cyclobenzaprine 10 mg tablet 10 mg PO TID PRN (Reason: muscle spasm) Qty: 14 RF: 0 lidocaine 4 % adhesive patch,medicated 1 patch topical DAILY PRN (Reason: pain) Qty: 10 RF: 0 ibuprofen 600 mg tablet 600 mg PO Q6H PRN (Reason: pain) Qty: 30 RF: 0 ketorolac 10 mg tablet 10 mg PO Q8H PRN (Reason: pain) Qty: 10 RF: 0 cyclobenzaprine 10 mg tablet 10 mg PO TID PRN (Reason: muscle spasm) Qty: 10 RF: 0
[2021-02-13 08:08] VITALS: BP 129/70; PULSE 66; RESP 18; TEMP 37.1; O2SAT 100; BMI 21.2
== END 2021-02-13 08:28 | disposition home or self-care (01) ==
PROVIDERS: Emergency Provider Emergency Medicine Emergency Medical Services
DX: K29.00 Acute gastritis without bleeding (principal); F17.200 Nicotine dependence, unspecified, uncomplicated; F12.90 Cannabis use, unspecified, uncomplicated; Z86.16 Personal history of COVID-19; Z71.6 Tobacco abuse counseling; Z79.899 Other long term (current) drug therapy
CPT/HCPCS: 99283; 99284

== ENCOUNTER 2021-02-16 09:13 | Emergency (ER) | payer OTHER, SELFPAY ==
[2021-02-16 09:20] VITALS: BP 111/61; PULSE 75; RESP 18; TEMP 37.1; O2SAT 97; BMI 22.8
--- NOTE | 2021-02-16 09:29 | ED_ITS ---
HPI - Back Pain/Injury General Chief Complaint: Back Pain/Injury Stated Complaint: BACK PAIN Time Seen by Provider: 02/16/21 09:16 Source: patient Mode of arrival: ambulatory Limitations: no limitations History of Present Illness HPI Narrative: Patient presents to ED for chronic back pain exacerbation. Patient denies any recent blunt back trauma. Patient denies any fever, chills, dysuria, hematuria, flank pain, fever, chills, any IV drug use. Patient also states chronic right footdrop he had since last year, but did not follow-up with orthopedic and would like referral to Orthopedics. Patient denies any ur inary/bowel incontinence pain MD elicited complaint: back pain Related Data Home Medications Medication Instructions Recorded Confirmed hydroxyzine HCl [Atarax] 100 mg PO NEEDED PRN 08/03/20 08/03/20 Previous Rx's Medication Instructions Recorded hydrocortisone [Anusol-HC] 1 applic [place] BEDTIME PRN #30 g 08/13/20 polyethylene glycol 3350 [Miralax] 17 g PO DAILY #119 g 08/13/20 cyclobenzaprine 10 mg PO TID PRN #30 tab 08/15/20 tramadol 50 mg PO Q8H PRN #12 tab 08/15/20 ketorolac 10 mg PO Q6H PRN 5 Days #20 tab 08/17/20 cane #1 ea 09/01/20 cyclobenzaprine 5 mg PO TID PRN #10 tab 09/01/20 naproxen 500 mg PO BID PRN #14 tab 09/01/20 cyclobenzaprine 5 mg PO TID PRN #5 tab 09/08/20 cyclobenzaprine 10 mg PO BEDTIME PRN #3 tab 09/17/20 cyclobenzaprine 10 mg PO TID PRN #20 tab 09/22/20 ketorolac 10 mg PO QID 5 Days #20 tab 09/22/20 cephalexin [Keflex] 500 mg PO QID 7 Days #28 cap 09/26/20 doxycycline monohydrate 100 mg PO BID 7 Days #14 cap 09/26/20 cyclobenzaprine 10 mg PO TID PRN #8 tab 09/29/20 ibuprofen 600 mg PO Q8H PRN #15 tab 09/29/20 lidocaine [Lidoderm] 1 patch TOPICAL DAILY #15 ea 09/29/20 acetaminophen [Tylenol Extra 500 mg PO Q6H PRN #20 tab 10/04/20 Strength] lidocaine [Lidoderm] 1 patch TOPICAL DAILY PRN #30 ea 10/04/20 MDD remove after 12 hours methocarbamol [Robaxin-750] 750 mg PO Q8H PRN #10 tab 10/04/20 naproxen 500 mg PO BID PRN 10 Days #20 tab 10/04/20 ibuprofen 400 mg PO Q6H PRN #20 tab 10/30/20 lidocaine [Lidoderm] 1 patch TOPICAL DAILY PRN #1 ea 10/30/20 omeprazole 40 mg PO DAILY #20 cap 11/04/20 sucralfate [Carafate] 1 g PO BID #30 tab 11/04/20 mupirocin 1 appl TOPICAL BID #15 g 12/04/20 cyclobenzaprine 10 mg PO TID PRN #14 tab 12/07/20 ibuprofen 600 mg PO Q6H PRN #30 tab 12/07/20 lidocaine 1 patch TOPICAL DAILY PRN #10 ea 12/07/20 PNV no.170-iron fum-folic acid 1 tab PO DAILY #30 tab 12/15/20 omeprazole 20 mg PO DAILY #30 cap 12/15/20 cyclobenzaprine 10 mg PO TID PRN #20 tab 12/27/20 lidocaine 1 patch TOPICAL Q24H #15 ea 12/27/20 ondansetron 4 mg PO Q8H PRN #20 tab 01/02/21 naloxone [Narcan] 4 mg INTRANASAL Q3M PRN #2 ea 01/08/21 cyclobenzaprine 10 mg PO TID PRN #10 tab 01/16/21 ketorolac 10 mg PO Q8H PRN #10 tab 01/16/21 ketorolac 10 mg PO Q6H PRN 5 Days #20 tab 01/27/21 ibuprofen 600 mg PO Q6H PRN #20 tab 02/10/21 loperamide [Anti-Diarrheal 2 mg PO Q4H PRN #10 tab 02/10/21 (loperamide)] ondansetron HCl [Zofran] 4 mg PO Q6H PRN #14 tab 02/10/21 ondansetron 4 mg PO Q6-8H PRN #14 tab 02/13/21 pantoprazole [Protonix] 20 mg PO DAILY #30 tab 02/13/21 cyclobenzaprine 10 mg PO TID PRN #18 tab 02/16/21 naproxen 500 mg PO BID PRN #20 tab 02/16/21 Allergies Allergy/AdvReac Type Severity Reaction Status Date / Time Penicillins [PCN] Allergy Mild RASH Verified 02/16/21 09:22 silver AdvReac Intermediate rash Verified 02/16/21 09:22 [From [email or web address]] Review of Systems Review of Systems: Yes all other systems are reviewed and are negative Constitutional: Constitutional: Reports as per HPI and Reports no additional constitutional complaints Eyes: Eyes: Reports as per HPI and Reports no additional eye complaints ENT: Reports system reviewed and no additional complaints, except as documented and Reports as per HPI Cardiovascular: Cardiovascular: Reports as per HPI and Reports no additional cardiovascular complaints Respiratory: Respiratory: Reports no additional respiratory complaints Gastrointestinal: Gastrointestinal: Reports as per HPI and Reports no additional gastrointestinal complaints Genitourinary: Genitourinary: Reports no additional male genitourinary complaints Musculoskeletal: Musculoskeletal: Reports no additional musculoskeletal complaints, Reports as per HPI and Reports back pain Neurologic: Reports system reviewed and no additional complaints, except as documented and Reports as per HPI Psychiatric: Psychiatric: Reports no additional psychiatric complaints and Reports as per HPI [facility] Past Medical History Medical History Contusion Foot drop, right foot Heart murmur Schizophrenia Surgical History No pertinent past surgical history Social History Social History Alcohol intake: unknown Smoking Status: Current every day smoker Substance Use Type: Marijuana Advance Directives: Yes Advance Directives Information Provided: No Advance Directives on File: No Physical Exam Vital Signs: Vital Signs: Last Vital Signs Temp 98.7 F 02/16/21 09:20 Pulse 75 02/16/21 09:20 Resp 18 02/16/21 09:20 BP 111/61 02/16/21 09:20 Pulse Ox 97 02/16/21 09:20 Body Mass Index 22.8 Const: General: cooperative, healthy appearing, comfortable, no acute distress, well developed, alert, awake and Physically active Orien tation/consciousness: patient oriented x3 HENMT: Head: Yes normal to inspection, Yes No palpable skull fracture present, Yes normocephalic, Yes atraumatic and No abrasion Eyes: General: appearance normal, both eyes and all related structures Neck: Neck: Yes normal visual inspection, Yes full ROM, Yes no lymphadenopathy, Yes no meningeal signs, Yes trachea midline, Yes supple and No tender Chest: Chest palpation & inspection: normal inspection of the chest and normal palpation of entire chest wall Resp: Effort & Inspection: normal respiratory effort and able to speak in complete sentences Auscultation: clear to auscultation bilaterally Cardio: Jugular venous distension: no JVD Heart sounds: S1 normal heart sound present and S2 normal heart sound present GI: Inspection: Yes normal to inspection and No abdominal wall ecchymosis Palpation (GI): Soft to palpation, not firm, nontender, no guarding and not rigid : General: No CVA tenderness and Yes no CVA tenderness Back/Spine/Pelvis: Back: no CVA tenderness, No CVA tenderness and back tenderness (Mild lumbar spine tenderness.) Skin: General skin exam: no rashes or lesions noted and elasticity normal Neuro: General: patient oriented x3, no meningeal signs and CN's II-XI intact bilaterally Cranial nerves: Yes CN's II-XII intact bilaterally Extrem: Other: Chronic right lower extremity footdrop. vascular, motor, and neuro exam is intact. General: Yes normal to inspection and Yes full ROM Psych: Appearance: grossly normal, well kempt and not disheveled Course Course Course Narrative: Chronic back pain exacerbation no trauma. No new imaging indicated. Not concerned for cord compression. Patient denies any history of IV drug use. Not concerned for epidural abscess. Reevaluation(s) Reevaluation #1: Patient will be discharged with NSAIDs muscle relaxer. Patient informed of [id number] lidocaine patch MDM - Back Pain/Injury MDM Narrative Medical decision making narrative: Chronic back pain exacerbated Discharge Plan Discharge Clinical Impression: Foot drop, right foot, Chronic back pain Patient Disposition: Home, Self-Care Instructions: Foot Drop (ED), Chronic Back Pain (DC) Additional Instructions: Return to the ED immediately for worsening back pain, fever, chills, urinary/bowel incontinence, paralysis of lower extremity, any other concerning symptoms. Prescriptions: New cyclobenzaprine 10 mg tablet 10 mg PO TID PRN (Reason: pain) Qty: 18 RF: 0 naproxen 500 mg tablet 500 mg PO BID PRN (Reason: pain) Qty: 20 RF: 0 No Action ketorolac 10 mg tablet 10 mg PO Q6H PRN (Reason: pain) 5 Days Qty: 20 RF: 0 naproxen 500 mg tablet 500 mg PO BID PRN (Reason: pain) Qty: 14 RF: 0 cyclobenzaprine 5 mg tablet 5 mg PO TID PRN (Reason: muscle spasm) Qty: 10 RF: 0 (DME) cane Device See Rx Instructions .ROUTE .MEDSUPPLY Qty: 1 RF: 0 cyclobenzaprine 10 mg tablet 10 mg PO BEDTIME PRN (Reason: muscle spasm) Qty: 3 RF: 0 doxycycline monohydrate 100 mg capsule 100 mg PO BID 7 Days Qty: 14 RF: 0 cephalexin [Keflex] 500 mg capsule 500 mg PO QID 7 Days Qty: 28 RF: 0 lidocaine [Lidoderm] 5 % adhesive patch,medicated 1 patch topical DAILY Qty: 15 RF: 0 ibuprofen 600 mg tablet 600 mg PO Q8H PRN (Reason: pain) Qty: 15 RF: 0 cyclobenzaprine 10 mg tablet 10 mg PO TID PRN (Reason: muscle spasm) Qty: 8 RF: 0 lidocaine [Lidoderm] 5 % adhesive patch,medicated 1 patch topical DAILY PRN (Reason: pain) Qty: 1 RF: 0 ibuprofen 400 mg tablet 400 mg PO Q6H PRN (Reason: pain) Qty: 20 RF: 0 omeprazole 40 mg capsule,delayed release(DR/EC) 40 mg PO DAILY Qty: 20 RF: 0 sucralfate [Carafate] 1 gram tablet 1 g PO BID Qty: 30 RF: 0 mupirocin 2 % ointment 1 appl topical BID Qty: 15 RF: 0 omeprazole 20 mg capsule,delayed release(DR/EC) 20 mg PO DAILY Qty: 30 RF: 0 PNV no.170-iron fum-folic acid 27 mg iron- 1 mg tablet 1 tab PO DAILY Qty: 30 RF: 0 cyclobenzaprine 10 mg tablet 10 mg PO TID PRN (Reason: muscle pain or spasm) Qty: 20 RF: 0 lidocaine 5 % adhesive patch,medicated 1 patch topical Q24H Qty: 15 RF: 0 ondansetron 4 mg tablet,disintegrating 4 mg PO Q8H PRN (Reason: nausea and vomiting) Qty: 20 RF: 0 Narcan 4 mg/actuation spray,non-aerosol 4 mg intranasal Q3M PRN (Reason: opioid overdose) Qty: 2 RF: 0 ketorolac 10 mg tablet 10 mg PO Q6H PRN (Reason: pain) 5 Days Qty: 20 RF: 0 ondansetron HCl [Zofran] 4 mg tablet 4 mg PO Q6H PRN (Reason: nausea and vomiting) Qty: 14 RF: 0 loperamide [Anti-Diarrheal (loperamide)] 2 mg tablet 2 mg PO Q4H PRN (Reason: loose stool) Qty: 10 RF: 0 ibuprofen 600 mg tablet 600 mg PO Q6H PRN (Reason: fever or pain) Qty: 20 RF: 0 Atarax 100 mg Tablet 100 mg PO NEEDED PRN (Reason: Anxiety) RF: 0 hydrocortisone [Anusol-HC] 2.5 % cream with perineal applicator 1 applic [place] BEDTIME PRN (Reason: pain) Qty: 30 RF: 0 polyethylene glycol 3350 [Miralax] 17 gram/dose powder 17 g PO DAILY Qty: 119 RF: 0 cyclobenzaprine 10 mg tablet 10 mg PO TID PRN (Reason: muscle spasm) Qty: 30 RF: 0 tramadol 50 mg tablet 50 mg PO Q8H PRN (Reason: pain) Qty: 12 RF: 0 cyclobenzaprine 5 mg tablet 5 mg PO TID PRN (Reason: muscle spasm) Qty: 5 RF: 0 cyclobenzaprine 10 mg tablet 10 mg PO TID PRN (Reason: muscle spasm) Qty: 20 RF: 0 ketorolac 10 mg tablet 10 mg PO QID 5 Days Qty: 20 RF: 0 methocarbamol [Robaxin-750] 750 mg tablet 750 mg PO Q8H PRN (Reason: pain, severe) Qty: 10 RF: 0 acetaminophen [Tylenol Extra Strength] 500 mg tablet 500 mg PO Q6H PRN (Reason: pain or fever) Qty: 20 RF: 0 lidocaine [Lidoderm] 5 % adhesive patch,medicated 1 patch topical DAILY MDD remove after 12 hours PRN (Reason: pain) Qty: 30 RF: 0 naproxen 500 mg tablet 500 mg PO BID PRN (Reason: pain) 10 Days Qty: 20 RF: 0 cyclobenzaprine 10 mg tablet 10 mg PO TID PRN (Reason: muscle spasm) Qty: 14 RF: 0 lidocaine 4 % adhesive patch,medicated 1 patch topical DAILY PRN (Reason: pain) Qty: 10 RF: 0 ibuprofen 600 mg tablet 600 mg PO Q6H PRN (Reason: pain) Qty: 30 RF: 0 ketorolac 10 mg tablet 10 mg PO Q8H PRN (Reason: pain) Qty: 10 RF: 0 cyclobenzaprine 10 mg tablet 10 mg PO TID PRN (Reason: muscle spasm) Qty: 10 RF: 0 pantoprazole [Protonix] 20 mg tablet,delayed release (DR/EC) 20 mg PO DAILY Qty: 30 RF: 0 ondansetron 4 mg tablet,disintegrating 4 mg PO Q6-8H PRN (Reason: nausea and vomiting) Qty: 14 RF: 0 Referrals: Oh Clemente MD [Physician] - 2 days (Right foot drop. never followed up with orthopedic. ) Interventions: ED Discharge Assessment Last Done: 02/16/21 09:41 Discharge Date/Time: 02/16/21 09:43 Print Language: Croatian
== END 2021-02-16 09:43 | disposition home or self-care (01) ==
PROVIDERS: Emergency Provider Emergency Medicine
DX: M54.5 Low back pain (principal); M21.371 Foot drop, right foot; F12.90 Cannabis use, unspecified, uncomplicated; Z79.899 Other long term (current) drug therapy
CPT/HCPCS: 99283

== ENCOUNTER 2021-02-18 17:36 | Emergency (ER) | payer OTHER, SELFPAY | END 2021-02-18 18:05 | disposition left against medical advice (07) | PROVIDERS: Emergency Provider Emergency Medicine | DX: M54.9 Dorsalgia, unspecified (principal) ==

== ENCOUNTER 2021-02-19 00:24 | Emergency (ER) | payer OTHER, SELFPAY ==
[2021-02-19 00:25] VITALS: BP 116/61; PULSE 89; RESP 16; TEMP 36.6; O2SAT 96; BMI 21.2
--- NOTE | 2021-02-19 00:50 | ED.BACK ---
HPI - Back Pain/Injury General Chief Complaint: Back Pain/Injury Stated Complaint: BACK PAIN Time Seen by Provider: 02/19/21 00:47 Source: patient and old records reviewed Mode of arrival: ambulatory Limitations: no limitations History of Present Illness MD elicited complaint: back pain Pertinent past history: prior back pain Onset (ago): month(s) Timing: intermittent Severity: similar to previous episodes Similar Symptoms Previously: Yes Quality: dull Location: lumbar spine Radiation: none Exacerbating factors: movement Relieving factors: none Context: unknown Associated symptoms: denies other symptoms Treatments prior to arrival: NSAIDS and other medications Work related injury: No Related Data Home Medications Medication Instructions Recorded Confirmed hydroxyzine HCl [Atarax] 100 mg PO NEEDED PRN 08/03/20 08/03/20 Previous Rx's Medication Instructions Recorded hydrocortisone [Anusol-HC] 1 applic FL BEDTIME PRN #30 g 08/13/20 polyethylene glycol 3350 [Miralax] 17 g PO DAILY #119 g 08/13/20 cyclobenzaprine 10 mg PO TID PRN #30 tab 08/15/20 tramadol 50 mg PO Q8H PRN #12 tab 08/15/20 ketorolac 10 mg PO Q6H PRN 5 Days #20 tab 08/17/20 cane #1 ea 09/01/20 cyclobenzaprine 5 mg PO TID PRN #10 tab 09/01/20 naproxen 500 mg PO BID PRN #14 tab 09/01/20 cyclobenzaprine 5 mg PO TID PRN #5 tab 09/08/20 cyclobenzaprine 10 mg PO BEDTIME PRN #3 tab 09/17/20 cyclobenzaprine 10 mg PO TID PRN #20 tab 09/22/20 ketorolac 10 mg PO QID 5 Days #20 tab 09/22/20 cephalexin [Keflex] 500 mg PO QID 7 Days #28 cap 09/26/20 doxycycline monohydrate 100 mg PO BID 7 Days #14 cap 09/26/20 cyclobenzaprine 10 mg PO TID PRN #8 tab 09/29/20 ibuprofen 600 mg PO Q8H PRN #15 tab 09/29/20 lidocaine [Lidoderm] 1 patch TOPICAL DAILY #15 ea 09/29/20 acetaminophen [Tylenol Extra 500 mg PO Q6H PRN #20 tab 10/04/20 Strength] lidocaine [Lidoderm] 1 patch TOPICAL DAILY PRN #30 ea 10/04/20 MDD remove after 12 hours methocarbamol [Robaxin-750] 750 mg PO Q8H PRN #10 tab 10/04/20 naproxen 500 mg PO BID PRN 10 Days #20 tab 10/04/20 ibuprofen 400 mg PO Q6H PRN #20 tab 10/30/20 lidocaine [Lidoderm] 1 patch TOPICAL DAILY PRN #1 ea 10/30/20 omeprazole 40 mg PO DAILY #20 cap 11/04/20 sucralfate [Carafate] 1 g PO BID #30 tab 11/04/20 mupirocin 1 appl TOPICAL BID #15 g 12/04/20 cyclobenzaprine 10 mg PO TID PRN #14 tab 12/07/20 ibuprofen 600 mg PO Q6H PRN #30 tab 12/07/20 lidocaine 1 patch TOPICAL DAILY PRN #10 ea 12/07/20 PNV no.170-iron fum-folic acid 1 tab PO DAILY #30 tab 12/15/20 omeprazole 20 mg PO DAILY #30 cap 12/15/20 cyclobenzaprine 10 mg PO TID PRN #20 tab 12/27/20 lidocaine 1 patch TOPICAL Q24H #15 ea 12/27/20 ondansetron 4 mg PO Q8H PRN #20 tab 01/02/21 naloxone [Narcan] 4 mg INTRANASAL Q3M PRN #2 ea 01/08/21 cyclobenzaprine 10 mg PO TID PRN #10 tab 01/16/21 ketorolac 10 mg PO Q8H PRN #10 tab 01/16/21 ketorolac 10 mg PO Q6H PRN 5 Days #20 tab 01/27/21 ibuprofen 600 mg PO Q6H PRN #20 tab 02/10/21 loperamide [Anti-Diarrheal 2 mg PO Q4H PRN #10 tab 02/10/21 (loperamide)] ondansetron HCl [Zofran] 4 mg PO Q6H PRN #14 tab 02/10/21 ondansetron 4 mg PO Q6-8H PRN #14 tab 02/13/21 pantoprazole [Protonix] 20 mg PO DAILY #30 tab 04/15/21 cyclobenzaprine 10 mg PO TID PRN #18 tab 02/16/21 naproxen 500 mg PO BID PRN #20 tab 02/16/21 lidocaine 1 patch TOPICAL DAILY PRN #10 ea 02/19/21 Allergies Allergy/AdvReac Type Severity Reaction Status Date / Time Penicillins [PCN] Allergy Mild RASH Verified 02/16/21 09:22 silver AdvReac Intermediate rash Verified 02/16/21 09:22 [From [employer] MESH] Review of Systems Review of Systems: Constitutional : No Weight loss, No Fever, No Chills, ENT/Mouth : No Hearing loss, No Ear Pain, No Nasal Congestion, No Sinus Pain, No Hoarseness, No sore throat, No Rhinorrhea, No Swallowing Difficulty Cardiovascular : No Chest Pain, No SOB Respiratory : No Cough, No Dyspnea Gastrointestinal : No Nausea, No Vomiting, No Diarrhea, No abdominal Pain, No Hematochezia, No Melena Genitourinary : No Dysuria, No Urinary Frequency, No Hematuria, No Urinary Incontinence, Musculoskeletal : positive back pain Skin : No Skin Lesions, No rash Neuro : No Weakness, No Numbness, No Paresthesias, no loss of bowel or bladder incontinence, no saddle anesthesia [facility] Past Medical History Attestation statement: The following information was validated with the patient. Medical History Contusion Foot drop, right foot Heart murmur Schizophrenia Surgical History No pertinent past surgical history Social History Social History Alcohol intake: unknown Smoking Status: Current every day smoker Substance Use Type: Marijuana Advance Directives: No Physical Exam Vital Signs: Vital Signs: Last Vital Signs Temp 98 F 02/19/21 00:25 Pulse 89 02/19/21 00:25 Resp 16 02/19/21 00:25 BP 116/61 02/19/21 00:25 Pulse Ox 96 02/19/21 00:25 Body Mass Index 21.2 Appearance: Alert. Oriented X3. No acute distress. Eyes: Pupils equal, round and reactive to light. ENT: Pharynx normal. Neck: Normal inspection. Neck supple. CVS: Normal heart rate and rhythm. Pulses normal. Respiratory: No respiratory distress. Breath sounds normal. Abdomen: Soft and nontender. Back: mild ttp lumbar paraspinals Skin: Skin warm and dry. Normal skin color. Normal skin turgor. Extremities: No lower extremity edema. No calf ttp Neuro: Oriented X 3. No motor deficit. No sensory deficit. Steady gait MDM - Back Pain/Injury MDM Narrative Medical decision making narrative: 36 yo male here with typical chronic back pain no IVDA, no fevers, no AC therapy, wants a lidocaine patch and a sandwhich, he frequents the ED for various complaints, no red flag symptoms Discharge Plan Discharge Clinical Impression: Chronic back pain Qualifiers: Back pain location: low back pain Back pain laterality: bilateral Sciatica presence: without sciatica Qualified Code(s): M54.5 - Low back pain Patient Disposition: Home, Self-Care Instructions: Chronic Back Pain (DC) Additional Instructions: return to ED for any worsening symptoms or concerns Prescriptions: New lidocaine 4 % adhesive patch,medicated 1 patch topical DAILY PRN (Reason: pain) Qty: 10 RF: 0 No Action ketorolac 10 mg tablet 10 mg PO Q6H PRN (Reason: pain) 5 Days Qty: 20 RF: 0 naproxen 500 mg tablet 500 mg PO BID PRN (Reason: pain) Qty: 14 RF: 0 cyclobenzaprine 5 mg tablet 5 mg PO TID PRN (Reason: muscle spasm) Qty: 10 RF: 0 (DME) cane Device See Rx Instructions .ROUTE .MEDSUPPLY Qty: 1 RF: 0 cyclobenzaprine 10 mg tablet 10 mg PO BEDTIME PRN (Reason: muscle spasm) Qty: 3 RF: 0 doxycycline monohydrate 100 mg capsule 100 mg PO BID 7 Days Qty: 14 RF: 0 cephalexin [Keflex] 500 mg capsule 500 mg PO QID 7 Days Qty: 28 RF: 0 lidocaine [Lidoderm] 5 % adhesive patch,medicated 1 patch topical DAILY Qty: 15 RF: 0 ibuprofen 600 mg tablet 600 mg PO Q8H PRN (Reason: pain) Qty: 15 RF: 0 cyclobenzaprine 10 mg tablet 10 mg PO TID PRN (Reason: muscle spasm) Qty: 8 RF: 0 lidocaine [Lidoderm] 5 % adhesive patch,medicated 1 patch topical DAILY PRN (Reason: pain) Qty: 1 RF: 0 ibuprofen 400 mg tablet 400 mg PO Q6H PRN (Reason: pain) Qty: 20 RF: 0 omeprazole 40 mg capsule,delayed release(DR/EC) 40 mg PO DAILY Qty: 20 RF: 0 sucralfate [Carafate] 1 gram tablet 1 g PO BID Qty: 30 RF: 0 mupirocin 2 % ointment 1 appl topical BID Qty: 15 RF: 0 omeprazole 20 mg capsule,delayed release(DR/EC) 20 mg PO DAILY Qty: 30 RF: 0 PNV no.170-iron fum-folic acid 27 mg iron- 1 mg tablet 1 tab PO DAILY Qty: 30 RF: 0 cyclobenzaprine 10 mg tablet 10 mg PO TID PRN (Reason: muscle pain or spasm) Qty: 20 RF: 0 lidocaine 5 % adhesive patch,medicated 1 patch topical Q24H Qty: 15 RF: 0 ondansetron 4 mg tablet,disintegrating 4 mg PO Q8H PRN (Reason: nausea and vomiting) Qty: 20 RF: 0 Narcan 4 mg/actuation spray,non-aerosol 4 mg intranasal Q3M PRN (Reason: opioid overdose) Qty: 2 RF: 0 ketorolac 10 mg tablet 10 mg PO Q6H PRN (Reason: pain) 5 Days Qty: 20 RF: 0 ondansetron HCl [Zofran] 4 mg tablet 4 mg PO Q6H PRN (Reason: nausea and vomiting) Qty: 14 RF: 0 loperamide [Anti-Diarrheal (loperamide)] 2 mg tablet 2 mg PO Q4H PRN (Reason: loose stool) Qty: 10 RF: 0 ibuprofen 600 mg tablet 600 mg PO Q6H PRN (Reason: fever or pain) Qty: 20 RF: 0 Atarax 100 mg Tablet 100 mg PO NEEDED PRN (Reason: Anxiety) RF: 0 hydrocortisone [Anusol-HC] 2.5 % cream with perineal applicator 1 applic FL BEDTIME PRN (Reason: pain) Qty: 30 RF: 0 polyethylene glycol 3350 [Miralax] 17 gram/dose powder 17 g PO DAILY Qty: 119 RF: 0 cyclobenzaprine 10 mg tablet 10 mg PO TID PRN (Reason: muscle spasm) Qty: 30 RF: 0 tramadol 50 mg tablet 50 mg PO Q8H PRN (Reason: pain) Qty: 12 RF: 0 cyclobenzaprine 5 mg tablet 5 mg PO TID PRN (Reason: muscle spasm) Qty: 5 RF: 0 cyclobenzaprine 10 mg tablet 10 mg PO TID PRN (Reason: muscle spasm) Qty: 20 RF: 0 ketorolac 10 mg tablet 10 mg PO QID 5 Days Qty: 20 RF: 0 methocarbamol [Robaxin-750] 750 mg tablet 750 mg PO Q8H PRN (Reason: pain, severe) Qty: 10 RF: 0 acetaminophen [Tylenol Extra Strength] 500 mg tablet 500 mg PO Q6H PRN (Reason: pain or fever) Qty: 20 RF: 0 lidocaine [Lidoderm] 5 % adhesive patch,medicated 1 patch topical DAILY MDD remove after 12 hours PRN (Reason: pain) Qty: 30 RF: 0 naproxen 500 mg tablet 500 mg PO BID PRN (Reason: pain) 10 Days Qty: 20 RF: 0 cyclobenzaprine 10 mg tablet 10 mg PO TID PRN (Reason: muscle spasm) Qty: 14 RF: 0 lidocaine 4 % adhesive patch,medicated 1 patch topical DAILY PRN (Reason: pain) Qty: 10 RF: 0 ibuprofen 600 mg tablet 600 mg PO Q6H PRN (Reason: pain) Qty: 30 RF: 0 ketorolac 10 mg tablet 10 mg PO Q8H PRN (Reason: pain) Qty: 10 RF: 0 cyclobenzaprine 10 mg tablet 10 mg PO TID PRN (Reason: muscle spasm) Qty: 10 RF: 0 pantoprazole [Protonix] 20 mg tablet,delayed release (DR/EC) 20 mg PO DAILY Qty: 30 RF: 0 ondansetron 4 mg tablet,disintegrating 4 mg PO Q6-8H PRN (Reason: nausea and vomiting) Qty: 14 RF: 0 cyclobenzaprine 10 mg tablet 10 mg PO TID PRN (Reason: pain) Qty: 18 RF: 0 naproxen 500 mg tablet 500 mg PO BID PRN (Reason: pain) Qty: 20 RF: 0
[2021-02-19] MEDS: Lidocaine 4 % Patch ADH..PATCH 1 PATCH TRANSDERMA (01:04)
== END 2021-02-19 01:08 | disposition home or self-care (01) ==
PROVIDERS: Emergency Provider Emergency Medicine
DX: M54.5 Low back pain (principal); F12.90 Cannabis use, unspecified, uncomplicated; F17.200 Nicotine dependence, unspecified, uncomplicated; Z71.6 Tobacco abuse counseling; Z79.899 Other long term (current) drug therapy
CPT/HCPCS: 99283

== ENCOUNTER 2021-02-27 07:10 | Emergency (ER) | payer OTHER, SELFPAY ==
[2021-02-27 07:40] VITALS: BP 111/52; PULSE 80; RESP 16; TEMP 37.2; O2SAT 98; BMI 22.8
--- NOTE | 2021-02-27 08:15 | ED_ITS ---
HPI - Back Pain/Injury General Chief Complaint: Back Pain/Injury Stated Complaint: back pain Time Seen by Provider: 02/27/21 08:15 Source: patient Mode of arrival: ambulatory Limitations: no limitations History of Present Illness HPI Narrative: Patient injured his foot 1 year ago and his back too. Patient with no bowel or bladder problems MD elicited complaint: back pain Pertinent past history: prior back pain Onset (ago): year(s) Timing: constant Severity: mild Quality: burning Location: right lower back and left lower back Exacerbating factors: movement Relieving factors: none Context: while lifting and turning/twisting Related Data Home Medications Medication Instructions Recorded Confirmed hydroxyzine HCl [Atarax] 100 mg PO NEEDED PRN 08/03/20 08/03/20 Previous Rx's Medication Instructions Recorded hydrocortisone [Anusol-HC] 1 applic [place] BEDTIME PRN #30 g 08/13/20 polyethylene glycol 3350 [Miralax] 17 g PO DAILY #119 g 08/13/20 cyclobenzaprine 10 mg PO TID PRN #30 tab 08/15/20 tramadol 50 mg PO Q8H PRN #12 tab 08/15/20 ketorolac 10 mg PO Q6H PRN 5 Days #20 tab 08/17/20 cane #1 ea 09/01/20 cyclobenzaprine 5 mg PO TID PRN #10 tab 09/01/20 naproxen 500 mg PO BID PRN #14 tab 09/01/20 cyclobenzaprine 5 mg PO TID PRN #5 tab 09/08/20 cyclobenzaprine 10 mg PO BEDTIME PRN #3 tab 09/17/20 cyclobenzaprine 10 mg PO TID PRN #20 tab 09/22/20 ketorolac 10 mg PO QID 5 Days #20 tab 09/22/20 cephalexin [Keflex] 500 mg PO QID 7 Days #28 cap 09/26/20 doxycycline monohydrate 100 mg PO BID 7 Days #14 cap 09/26/20 cyclobenzaprine 10 mg PO TID PRN #8 tab 09/29/20 ibuprofen 600 mg PO Q8H PRN #15 tab 09/29/20 lidocaine [Lidoderm] 1 patch TOPICAL DAILY #15 ea 09/29/20 acetaminophen [Tylenol Extra 500 mg PO Q6H PRN #20 tab 10/04/20 Strength] lidocaine [Lidoderm] 1 patch TOPICAL DAILY PRN #30 ea 10/04/20 MDD remove after 12 hours methocarbamol [Robaxin-750] 750 mg PO Q8H PRN #10 tab 10/04/20 naproxen 500 mg PO BID PRN 10 Days #20 tab 10/04/20 ibuprofen 400 mg PO Q6H PRN #20 tab 10/30/20 lidocaine [Lidoderm] 1 patch TOPICAL DAILY PRN #1 ea 10/30/20 omeprazole 40 mg PO DAILY #20 cap 11/04/20 sucralfate [Carafate] 1 g PO BID #30 tab 11/04/20 mupirocin 1 appl TOPICAL BID #15 g 12/04/20 cyclobenzaprine 10 mg PO TID PRN #14 tab 12/07/20 ibuprofen 600 mg PO Q6H PRN #30 tab 12/07/20 lidocaine 1 patch TOPICAL DAILY PRN #10 ea 12/07/20 PNV no.170-iron fum-folic acid 1 tab PO DAILY #30 tab 12/15/20 omeprazole 20 mg PO DAILY #30 cap 12/15/20 cyclobenzaprine 10 mg PO TID PRN #20 tab 12/27/20 lidocaine 1 patch TOPICAL Q24H #15 ea 12/27/20 ondansetron 4 mg PO Q8H PRN #20 tab 01/02/21 naloxone [Narcan] 4 mg INTRANASAL Q3M PRN #2 ea 01/08/21 cyclobenzaprine 10 mg PO TID PRN #10 tab 01/16/21 ketorolac 10 mg PO Q8H PRN #10 tab 01/16/21 ketorolac 10 mg PO Q6H PRN 5 Days #20 tab 01/27/21 ibuprofen 600 mg PO Q6H PRN #20 tab 02/10/21 loperamide [Anti-Diarrheal 2 mg PO Q4H PRN #10 tab 02/10/21 (loperamide)] ondansetron HCl [Zofran] 4 mg PO Q6H PRN #14 tab 02/10/21 ondansetron 4 mg PO Q6-8H PRN #14 tab 02/13/21 pantoprazole [Protonix] 20 mg PO DAILY #30 tab 02/13/21 cyclobenzaprine 10 mg PO TID PRN #18 tab 02/16/21 naproxen 500 mg PO BID PRN #20 tab 02/16/21 lidocaine 1 patch TOPICAL DAILY PRN #10 ea 02/19/21 cyclobenzaprine 10 mg PO TID #10 tab 02/27/21 naproxen [Naprosyn] 500 mg PO BID #20 tab 02/27/21 Allergies Allergy/AdvReac Type Severity Reaction Status Date / Time Penicillins [PCN] Allergy Mild RASH Verified 02/16/21 09:22 silver AdvReac Intermediate rash Verified 02/16/21 09:22 [From [email or web address] MESH] Review of Systems Constitutional: Constitutional: Reports no additional constitutional complaints Eyes: Eyes: Reports no additional eye complaints ENT: Denies dizziness Cardiovascular: Cardiovascular: Reports no additional cardiovascular complaints Respiratory: Respiratory: Reports as per HPI Gastrointestinal: Gastrointestinal: Reports no additional gastrointestinal complaints Musculoskeletal: Musculoskeletal: Reports no additional musculoskeletal complaints Integumentary/Breasts: Skin/Breast: Denies rash Neurologic: Reports system reviewed and no additional complaints, except as documented, Denies dizziness and Denies Sensory deficit (Neuro) Psychiatric: Psychiatric: Denies anxiety [facility] Past Medical History Medical History Anxiety Bipolar 1 disorder Contusion Depression Foot drop, right foot Heart murmur Schizophrenia Surgical History No pertinent past surgical history Social History Social History Alcohol intake: unknown Smoking Status: Current every day smoker Substance Use Type: Marijuana Advance Directives: Yes Advance Directives Information Provided: No Advance Directives on File: No Physical Exam Vital Signs: Vital Signs: Last Vital Signs Temp 99.0 F 02/27/21 07:40 Pulse 80 02/27/21 07:40 Resp 16 02/27/21 07:40 BP 111/52 L 02/27/21 07:40 Pulse Ox 98 02/27/21 07:40 Body Mass Index 22.8 Const: General: healthy appearing Nutritional Appearance: average body habitus Orientation/consciousness: oriented to person and patient oriented x3 Limitations: no limitations HENMT: Head: Yes normal to inspection Ears: external ears normal General nose exam: Normal external nose present Mouth: Normal oral and palatal mucosa present and oropharynx normal Throat: Yes posterior oropharynx normal Eyes: General: appearance normal, both eyes and all related structures Neck: Other: supple Neck: Yes normal visual inspection Chest: Chest palpation & inspection: normal inspection of the chest Resp: Auscultation: clear to auscultation bilaterally Cardio: Jugular venous distension: no JVD Rate: regular rate Rhythm: regular rhythm Heart sounds: S1 normal heart sound present and S2 normal heart sound present GI: Inspection: Yes normal to inspection Palpation (GI): Soft to palpation, nontender and No hepatosplenomegaly present Auscultation: normal bowel sounds Back/Spine/Pelvis: Other: mild paralumbar pain Skin: General skin exam: no rashes or lesions noted Neuro: General: oriented to person and patient oriented x3 Cranial nerves: Yes CN's II-XII intact bilaterally Motor exam (neuro): 5/5 motor strength present throughout Sensory Exam: No Sensory deficit (Neuro) Extrem: Other: right foot with good pulses no erythema, no evidence of injury Psych: Appearance: grossly normal Course Course Course Narrative: Patient with chronic pain will start NSAID and flexeril as patient is out of medication Discharge Plan Discharge Clinical Impression: Chronic back pain Qualifiers: Back pain location: low back pain Back pain laterality: midline Sciatica presence: with sciatica Sciatica laterality: bilateral sciatica Qualified Code(s): M54.41 - Lumbago with sciatica, right side Chronic foot pain Qualifiers: Laterality: right Qualified Code(s): M79.671 - Pain in right foot Patient Disposition: Home, Self-Care Prescriptions: New cyclobenzaprine 10 mg tablet 10 mg PO TID Qty: 10 RF: 0 naproxen [Naprosyn] 500 mg tablet 500 mg PO BID Qty: 20 RF: 0 No Action ketorolac 10 mg tablet 10 mg PO Q6H PRN (Reason: pain) 5 Days Qty: 20 RF: 0 naproxen 500 mg tablet 500 mg PO BID PRN (Reason: pain) Qty: 14 RF: 0 cyclobenzaprine 5 mg tablet 5 mg PO TID PRN (Reason: muscle spasm) Qty: 10 RF: 0 (DME) cane Device See Rx Instructions .ROUTE .MEDSUPPLY Qty: 1 RF: 0 cyclobenzaprine 10 mg tablet 10 mg PO BEDTIME PRN (Reason: muscle spasm) Qty: 3 RF: 0 doxycycline monohydrate 100 mg capsule 100 mg PO BID 7 Days Qty: 14 RF: 0 cephalexin [Keflex] 500 mg capsule 500 mg PO QID 7 Days Qty: 28 RF: 0 lidocaine [Lidoderm] 5 % adhesive patch,medicated 1 patch topical DAILY Qty: 15 RF: 0 ibuprofen 600 mg tablet 600 mg PO Q8H PRN (Reason: pain) Qty: 15 RF: 0 cyclobenzaprine 10 mg tablet 10 mg PO TID PRN (Reason: muscle spasm) Qty: 8 RF: 0 lidocaine [Lidoderm] 5 % adhesive patch,medicated 1 patch topical DAILY PRN (Reason: pain) Qty: 1 RF: 0 ibuprofen 400 mg tablet 400 mg PO Q6H PRN (Reason: pain) Qty: 20 RF: 0 omeprazole 40 mg capsule,delayed release(DR/EC) 40 mg PO DAILY Qty: 20 RF: 0 sucralfate [Carafate] 1 gram tablet 1 g PO BID Qty: 30 RF: 0 mupirocin 2 % ointment 1 appl topical BID Qty: 15 RF: 0 omeprazole 20 mg capsule,delayed release(DR/EC) 20 mg PO DAILY Qty: 30 RF: 0 PNV no.170-iron fum-folic acid 27 mg iron- 1 mg tablet 1 tab PO DAILY Qty: 30 RF: 0 cyclobenzaprine 10 mg tablet 10 mg PO TID PRN (Reason: muscle pain or spasm) Qty: 20 RF: 0 lidocaine 5 % adhesive patch,medicated 1 patch topical Q24H Qty: 15 RF: 0 ondansetron 4 mg tablet,disintegrating 4 mg PO Q8H PRN (Reason: nausea and vomiting) Qty: 20 RF: 0 Narcan 4 mg/actuation spray,non-aerosol 4 mg intranasal Q3M PRN (Reason: opioid overdose) Qty: 2 RF: 0 ketorolac 10 mg tablet 10 mg PO Q6H PRN (Reason: pain) 5 Days Qty: 20 RF: 0 ondansetron HCl [Zofran] 4 mg tablet 4 mg PO Q6H PRN (Reason: nausea and vomiting) Qty: 14 RF: 0 loperamide [Anti-Diarrheal (loperamide)] 2 mg tablet 2 mg PO Q4H PRN (Reason: loose stool) Qty: 10 RF: 0 ibuprofen 600 mg tablet 600 mg PO Q6H PRN (Reason: fever or pain) Qty: 20 RF: 0 Atarax 100 mg Tablet 100 mg PO NEEDED PRN (Reason: Anxiety) RF: 0 hydrocortisone [Anusol-HC] 2.5 % cream with perineal applicator 1 applic [place] BEDTIME PRN (Reason: pain) Qty: 30 RF: 0 polyethylene glycol 3350 [Miralax] 17 gram/dose powder 17 g PO DAILY Qty: 119 RF: 0 cyclobenzaprine 10 mg tablet 10 mg PO TID PRN (Reason: muscle spasm) Qty: 30 RF: 0 tramadol 50 mg tablet 50 mg PO Q8H PRN (Reason: pain) Qty: 12 RF: 0 cyclobenzaprine 5 mg tablet 5 mg PO TID PRN (Reason: muscle spasm) Qty: 5 RF: 0 cyclobenzaprine 10 mg tablet 10 mg PO TID PRN (Reason: muscle spasm) Qty: 20 RF: 0 ketorolac 10 mg tablet 10 mg PO QID 5 Days Qty: 20 RF: 0 methocarbamol [Robaxin-750] 750 mg tablet 750 mg PO Q8H PRN (Reason: pain, severe) Qty: 10 RF: 0 acetaminophen [Tylenol Extra Strength] 500 mg tablet 500 mg PO Q6H PRN (Reason: pain or fever) Qty: 20 RF: 0 lidocaine [Lidoderm] 5 % adhesive patch,medicated 1 patch topical DAILY MDD remove after 12 hours PRN (Reason: pain) Qty: 30 RF: 0 naproxen 500 mg tablet 500 mg PO BID PRN (Reason: pain) 10 Days Qty: 20 RF: 0 cyclobenzaprine 10 mg tablet 10 mg PO TID PRN (Reason: muscle spasm) Qty: 14 RF: 0 lidocaine 4 % adhesive patch,medicated 1 patch topical DAILY PRN (Reason: pain) Qty: 10 RF: 0 ibuprofen 600 mg tablet 600 mg PO Q6H PRN (Reason: pain) Qty: 30 RF: 0 ketorolac 10 mg tablet 10 mg PO Q8H PRN (Reason: pain) Qty: 10 RF: 0 cyclobenzaprine 10 mg tablet 10 mg PO TID PRN (Reason: muscle spasm) Qty: 10 RF: 0 pantoprazole [Protonix] 20 mg tablet,delayed release (DR/EC) 20 mg PO DAILY Qty: 30 RF: 0 ondansetron 4 mg tablet,disintegrating 4 mg PO Q6-8H PRN (Reason: nausea and vomiting) Qty: 14 RF: 0 cyclobenzaprine 10 mg tablet 10 mg PO TID PRN (Reason: pain) Qty: 18 RF: 0 naproxen 500 mg tablet 500 mg PO BID PRN (Reason: pain) Qty: 20 RF: 0 lidocaine 4 % adhesive patch,medicated 1 patch topical DAILY PRN (Reason: pain) Qty: 10 RF: 0 Referrals: Physician,Unknown [Primary Care Provider] - 2 days
== END 2021-02-27 08:43 | disposition home or self-care (01) ==
PROVIDERS: Emergency Provider Emergency Medicine
DX: M54.41 Lumbago with sciatica, right side (principal); M79.671 Pain in right foot; F12.90 Cannabis use, unspecified, uncomplicated; F17.200 Nicotine dependence, unspecified, uncomplicated; Z71.6 Tobacco abuse counseling; Z79.899 Other long term (current) drug therapy
CPT/HCPCS: 99283

== ENCOUNTER 2021-03-02 09:04 | Emergency (ER) | payer OTHER, SELFPAY ==
[2021-03-02 09:12] VITALS: BP 123/76; PULSE 78; RESP 18; TEMP 36.1; O2SAT 95; BMI 22.8
--- NOTE | 2021-03-02 09:50 | ED_ITS ---
HPI - Back Pain/Injury General Chief Complaint: Back Pain/Injury Stated Complaint: back pain Time Seen by Provider: 03/02/21 09:50 History of Present Illness HPI Narrative: Patient with chronic back pain complains of continued pain slightly worse today with no new injury He has a pre-existing injury to his right leg that has left him with a footdrop for over year, but he denies any new weakness no numbness no changes to bowel, no fever no chills Related Data Home Medications Medication Instructions Recorded Confirmed hydroxyzine HCl [Atarax] 100 mg PO NEEDED PRN 08/03/20 08/03/20 Previous Rx's Medication Instructions Recorded hydrocortisone [Anusol-HC] 1 applic ID BEDTIME PRN #30 g 08/13/20 polyethylene glycol 3350 [Miralax] 17 g PO DAILY #119 g 08/13/20 cyclobenzaprine 10 mg PO TID PRN #30 tab 08/15/20 tramadol 50 mg PO Q8H PRN #12 tab 08/15/20 ketorolac 10 mg PO Q6H PRN 5 Days #20 tab 08/17/20 cane #1 ea 09/01/20 cyclobenzaprine 5 mg PO TID PRN #10 tab 09/01/20 naproxen 500 mg PO BID PRN #14 tab 09/01/20 cyclobenzaprine 5 mg PO TID PRN #5 tab 09/08/20 cyclobenzaprine 10 mg PO BEDTIME PRN #3 tab 09/17/20 cyclobenzaprine 10 mg PO TID PRN #20 tab 09/22/20 ketorolac 10 mg PO QID 5 Days #20 tab 09/22/20 cephalexin [Keflex] 500 mg PO QID 7 Days #28 cap 09/26/20 doxycycline monohydrate 100 mg PO BID 7 Days #14 cap 09/26/20 cyclobenzaprine 10 mg PO TID PRN #8 tab 09/29/20 ibuprofen 600 mg PO Q8H PRN #15 tab 09/29/20 lidocaine [Lidoderm] 1 patch TOPICAL DAILY #15 ea 09/29/20 acetaminophen [Tylenol Extra 500 mg PO Q6H PRN #20 tab 10/04/20 Strength] lidocaine [Lidoderm] 1 patch TOPICAL DAILY PRN #30 ea 10/04/20 MDD remove after 12 hours methocarbamol [Robaxin-750] 750 mg PO Q8H PRN #10 tab 10/04/20 naproxen 500 mg PO BID PRN 10 Days #20 tab 10/04/20 ibuprofen 400 mg PO Q6H PRN #20 tab 10/30/20 lidocaine [Lidoderm] 1 patch TOPICAL DAILY PRN #1 ea 10/30/20 omeprazole 40 mg PO DAILY #20 cap 11/04/20 sucralfate [Carafate] 1 g PO BID #30 tab 11/04/20 mupirocin 1 appl TOPICAL BID #15 g 12/04/20 cyclobenzaprine 10 mg PO TID PRN #14 tab 12/07/20 ibuprofen 600 mg PO Q6H PRN #30 tab 12/07/20 lidocaine 1 patch TOPICAL DAILY PRN #10 ea 12/07/20 PNV no.170-iron fum-folic acid 1 tab PO DAILY #30 tab 12/15/20 omeprazole 20 mg PO DAILY #30 cap 12/15/20 cyclobenzaprine 10 mg PO TID PRN #20 tab 12/27/20 lidocaine 1 patch TOPICAL Q24H #15 ea 12/27/20 ondansetron 4 mg PO Q8H PRN #20 tab 01/02/21 naloxone [Narcan] 4 mg INTRANASAL Q3M PRN #2 ea 01/08/21 cyclobenzaprine 10 mg PO TID PRN #10 tab 01/16/21 ketorolac 10 mg PO Q8H PRN #10 tab 01/16/21 ketorolac 10 mg PO Q6H PRN 5 Days #20 tab 01/27/21 ibuprofen 600 mg PO Q6H PRN #20 tab 02/10/21 loperamide [Anti-Diarrheal 2 mg PO Q4H PRN #10 tab 02/10/21 (loperamide)] ondansetron HCl [Zofran] 4 mg PO Q6H PRN #14 tab 02/10/21 ondansetron 4 mg PO Q6-8H PRN #14 tab 02/13/21 pantoprazole [Protonix] 20 mg PO DAILY #30 tab 02/13/21 cyclobenzaprine 10 mg PO TID PRN #18 tab 02/16/21 naproxen 500 mg PO BID PRN #20 tab 02/16/21 lidocaine 1 patch TOPICAL DAILY PRN #10 ea 02/19/21 cyclobenzaprine 10 mg PO TID #10 tab 02/27/21 naproxen [Naprosyn] 500 mg PO BID #20 tab 02/27/21 cyclobenzaprine 5 mg PO TID PRN #10 tab 03/02/21 ibuprofen 600 mg PO Q6H PRN #14 tab 03/02/21 lidocaine 1 patch TOPICAL DAILY PRN #15 ea 03/02/21 oxycodone 5 mg PO Q6H PRN #5 tab 03/02/21 Allergies Allergy/AdvReac Type Severity Reaction Status Date / Time Penicillins [PCN] Allergy Mild RASH Verified 02/16/21 09:22 silver AdvReac Intermediate rash Verified 02/16/21 09:22 [From [employer] MESH] Review of Systems Review of Systems: Positive for back pain, neck is are no fever no chills no dizziness no new weakness no chest pain abdominal pain no numbness, pain does not radiate no dysuria no incontinence no bowel or bladder changes Yes all other systems are reviewed and are negative PMFSH Past Medical History Source: nursing notes reviewed Medical History Anxiety Bipolar 1 disorder Contusion Depression Foot drop, right foot Heart murmur Schizophrenia Surgical History No pertinent past surgical history Social History Social History Alcohol intake: unknown Smoking Status: Current every day smoker Substance Use Type: Marijuana Advance Directives: No Advance Directives Information Provided: No Physical Exam Vital Signs: Vital Signs: Last Vital Signs Temp 97.0 F 03/02/21 09:12 Pulse 78 03/02/21 09:12 Resp 18 03/02/21 09:12 BP 123/76 03/02/21 09:12 Pulse Ox 95 03/02/21 09:12 Body Mass Index 22.8 General appearance is no acute distress Head is normocephalic atraumatic Neck is supple and nontender Respiratory no distress Abdomen soft nontender The back and lower lumbar paraspinal tenderness, no bony tenderness no CVA tenderness, skin was normal Neuro there is a right foot weakness in dorsiflexion and plantar flexion of the ankle, patient states this has been that way for year since an injury to his leg No other motor weakness or sensory deficit Course Course Course Narrative: Patient with chronic back pain is treated without she has it and advised to follow with primary doctor Discharge Plan Discharge Clinical Impression: Back pain Qualifiers: Back pain location: low back pain Chronicity: chronic Back pain laterality: unspecified Sciatica presence: without sciatica Qualified Code(s): M54.5 - Low back pain Patient Disposition: Home, Self-Care Additional Instructions: Follow with your doctors for back pain and for the chronic foot drop Prescriptions: New lidocaine 5 % adhesive patch,medicated 1 patch topical DAILY PRN (Reason: back pain) Qty: 15 RF: 0 oxycodone 5 mg tablet 5 mg PO Q6H PRN (Reason: pain) Qty: 5 RF: 0 ibuprofen 600 mg tablet 600 mg PO Q6H PRN (Reason: pain) Qty: 14 RF: 0 cyclobenzaprine 5 mg tablet 5 mg PO TID PRN (Reason: muscle spasm) Qty: 10 RF: 0 No Action ketorolac 10 mg tablet 10 mg PO Q6H PRN (Reason: pain) 5 Days Qty: 20 RF: 0 naproxen 500 mg tablet 500 mg PO BID PRN (Reason: pain) Qty: 14 RF: 0 cyclobenzaprine 5 mg tablet 5 mg PO TID PRN (Reason: muscle spasm) Qty: 10 RF: 0 (DME) cane Device See Rx Instructions .ROUTE .MEDSUPPLY Qty: 1 RF: 0 cyclobenzaprine 10 mg tablet 10 mg PO BEDTIME PRN (Reason: muscle spasm) Qty: 3 RF: 0 doxycycline monohydrate 100 mg capsule 100 mg PO BID 7 Days Qty: 14 RF: 0 cephalexin [Keflex] 500 mg capsule 500 mg PO QID 7 Days Qty: 28 RF: 0 lidocaine [Lidoderm] 5 % adhesive patch,medicated 1 patch topical DAILY Qty: 15 RF: 0 ibuprofen 600 mg tablet 600 mg PO Q8H PRN (Reason: pain) Qty: 15 RF: 0 cyclobenzaprine 10 mg tablet 10 mg PO TID PRN (Reason: muscle spasm) Qty: 8 RF: 0 lidocaine [Lidoderm] 5 % adhesive patch,medicated 1 patch topical DAILY PRN (Reason: pain) Qty: 1 RF: 0 ibuprofen 400 mg tablet 400 mg PO Q6H PRN (Reason: pain) Qty: 20 RF: 0 omeprazole 40 mg capsule,delayed release(DR/EC) 40 mg PO DAILY Qty: 20 RF: 0 sucralfate [Carafate] 1 gram tablet 1 g PO BID Qty: 30 RF: 0 mupirocin 2 % ointment 1 appl topical BID Qty: 15 RF: 0 omeprazole 20 mg capsule,delayed release(DR/EC) 20 mg PO DAILY Qty: 30 RF: 0 PNV no.170-iron fum-folic acid 27 mg iron- 1 mg tablet 1 tab PO DAILY Qty: 30 RF: 0 cyclobenzaprine 10 mg tablet 10 mg PO TID PRN (Reason: muscle pain or spasm) Qty: 20 RF: 0 lidocaine 5 % adhesive patch,medicated 1 patch topical Q24H Qty: 15 RF: 0 ondansetron 4 mg tablet,disintegrating 4 mg PO Q8H PRN (Reason: nausea and vomiting) Qty: 20 RF: 0 Narcan 4 mg/actuation spray,non-aerosol 4 mg intranasal Q3M PRN (Reason: opioid overdose) Qty: 2 RF: 0 ketorolac 10 mg tablet 10 mg PO Q6H PRN (Reason: pain) 5 Days Qty: 20 RF: 0 ondansetron HCl [Zofran] 4 mg tablet 4 mg PO Q6H PRN (Reason: nausea and vomiting) Qty: 14 RF: 0 loperamide [Anti-Diarrheal (loperamide)] 2 mg tablet 2 mg PO Q4H PRN (Reason: loose stool) Qty: 10 RF: 0 ibuprofen 600 mg tablet 600 mg PO Q6H PRN (Reason: fever or pain) Qty: 20 RF: 0 Atarax 100 mg Tablet 100 mg PO NEEDED PRN (Reason: Anxiety) RF: 0 hydrocortisone [Anusol-HC] 2.5 % cream with perineal applicator 1 applic ID BEDTIME PRN (Reason: pain) Qty: 30 RF: 0 polyethylene glycol 3350 [Miralax] 17 gram/dose powder 17 g PO DAILY Qty: 119 RF: 0 cyclobenzaprine 10 mg tablet 10 mg PO TID PRN (Reason: muscle spasm) Qty: 30 RF: 0 tramadol 50 mg tablet 50 mg PO Q8H PRN (Reason: pain) Qty: 12 RF: 0 cyclobenzaprine 5 mg tablet 5 mg PO TID PRN (Reason: muscle spasm) Qty: 5 RF: 0 cyclobenzaprine 10 mg tablet 10 mg PO TID PRN (Reason: muscle spasm) Qty: 20 RF: 0 ketorolac 10 mg tablet 10 mg PO QID 5 Days Qty: 20 RF: 0 methocarbamol [Robaxin-750] 750 mg tablet 750 mg PO Q8H PRN (Reason: pain, severe) Qty: 10 RF: 0 acetaminophen [Tylenol Extra Strength] 500 mg tablet 500 mg PO Q6H PRN (Reason: pain or fever) Qty: 20 RF: 0 lidocaine [Lidoderm] 5 % adhesive patch,medicated 1 patch topical DAILY MDD remove after 12 hours PRN (Reason: pain) Qty: 30 RF: 0 naproxen 500 mg tablet 500 mg PO BID PRN (Reason: pain) 10 Days Qty: 20 RF: 0 cyclobenzaprine 10 mg tablet 10 mg PO TID PRN (Reason: muscle spasm) Qty: 14 RF: 0 lidocaine 4 % adhesive patch,medicated 1 patch topical DAILY PRN (Reason: pain) Qty: 10 RF: 0 ibuprofen 600 mg tablet 600 mg PO Q6H PRN (Reason: pain) Qty: 30 RF: 0 ketorolac 10 mg tablet 10 mg PO Q8H PRN (Reason: pain) Qty: 10 RF: 0 cyclobenzaprine 10 mg tablet 10 mg PO TID PRN (Reason: muscle spasm) Qty: 10 RF: 0 pantoprazole [Protonix] 20 mg tablet,delayed release (DR/EC) 20 mg PO DAILY Qty: 30 RF: 0 ondansetron 4 mg tablet,disintegrating 4 mg PO Q6-8H PRN (Reason: nausea and vomiting) Qty: 14 RF: 0 cyclobenzaprine 10 mg tablet 10 mg PO TID PRN (Reason: pain) Qty: 18 RF: 0 naproxen 500 mg tablet 500 mg PO BID PRN (Reason: pain) Qty: 20 RF: 0 lidocaine 4 % adhesive patch,medicated 1 patch topical DAILY PRN (Reason: pain) Qty: 10 RF: 0 cyclobenzaprine 10 mg tablet 10 mg PO TID Qty: 10 RF: 0 naproxen [Naprosyn] 500 mg tablet 500 mg PO BID Qty: 20 RF: 0
[2021-03-02] MEDS: Ketorolac Tromethamine 30 MG/ML VIAL IM (10:10)
[2021-03-02 10:13] VITALS: RESP 18
== END 2021-03-02 10:14 | disposition home or self-care (01) ==
PROVIDERS: Emergency Provider Emergency Medicine
DX: M54.5 Low back pain (principal); M21.372 Foot drop, left foot; F17.210 Nicotine dependence, cigarettes, uncomplicated; F12.90 Cannabis use, unspecified, uncomplicated
CPT/HCPCS: 96372; 99283; 99284; J1885

== ENCOUNTER 2021-03-11 05:08 | Emergency (ER) | payer OTHER, SELFPAY ==
[2021-03-11 05:19] VITALS: BP 129/68; PULSE 82; RESP 16; TEMP 37.2; O2SAT 97; BMI 22.5
--- NOTE | 2021-03-11 06:40 | ED.BACK ---
HPI - Back Pain/Injury General Chief Complaint: Back Pain/Injury Stated Complaint: lower back pain Time Seen by Provider: 03/11/21 06:40 Source: patient Mode of arrival: ambulatory Limitations: no limitations History of Present Illness MD elicited complaint: back pain Pertinent past history: prior back pain Onset (ago): week(s) Timing: intermittent Severity: mild Similar Symptoms Previously: Yes Quality: dull Location: lumbar spine Radiation: none Exacerbating factors: movement Relieving factors: none Context: unknown Associated symptoms: denies other symptoms Treatments prior to arrival: NSAIDS Related Data Home Medications Medication Instructions Recorded Confirmed hydroxyzine HCl [Atarax] 100 mg PO NEEDED PRN 08/03/20 08/03/20 Previous Rx's Medication Instructions Recorded hydrocortisone [Anusol-HC] 1 applic [place] BEDTIME PRN #30 g 08/13/20 polyethylene glycol 3350 [Miralax] 17 g PO DAILY #119 g 08/13/20 cyclobenzaprine 10 mg PO TID PRN #30 tab 08/15/20 tramadol 50 mg PO Q8H PRN #12 tab 08/15/20 ketorolac 10 mg PO Q6H PRN 5 Days #20 tab 08/17/20 cane #1 ea 09/01/20 cyclobenzaprine 5 mg PO TID PRN #10 tab 09/01/20 naproxen 500 mg PO BID PRN #14 tab 09/01/20 cyclobenzaprine 5 mg PO TID PRN #5 tab 09/08/20 cyclobenzaprine 10 mg PO BEDTIME PRN #3 tab 09/17/20 cyclobenzaprine 10 mg PO TID PRN #20 tab 09/22/20 ketorolac 10 mg PO QID 5 Days #20 tab 09/22/20 cephalexin [Keflex] 500 mg PO QID 7 Days #28 cap 09/26/20 doxycycline monohydrate 100 mg PO BID 7 Days #14 cap 09/26/20 cyclobenzaprine 10 mg PO TID PRN #8 tab 09/29/20 ibuprofen 600 mg PO Q8H PRN #15 tab 09/29/20 lidocaine [Lidoderm] 1 patch TOPICAL DAILY #15 ea 09/29/20 acetaminophen [Tylenol Extra 500 mg PO Q6H PRN #20 tab 10/04/20 Strength] lidocaine [Lidoderm] 1 patch TOPICAL DAILY PRN #30 ea 10/04/20 MDD remove after 12 hours methocarbamol [Robaxin-750] 750 mg PO Q8H PRN #10 tab 10/04/20 naproxen 500 mg PO BID PRN 10 Days #20 tab 10/04/20 ibuprofen 400 mg PO Q6H PRN #20 tab 10/30/20 lidocaine [Lidoderm] 1 patch TOPICAL DAILY PRN #1 ea 10/30/20 omeprazole 40 mg PO DAILY #20 cap 11/04/20 sucralfate [Carafate] 1 g PO BID #30 tab 11/04/20 mupirocin 1 appl TOPICAL BID #15 g 12/04/20 cyclobenzaprine 10 mg PO TID PRN #14 tab 12/07/20 ibuprofen 600 mg PO Q6H PRN #30 tab 12/07/20 lidocaine 1 patch TOPICAL DAILY PRN #10 ea 12/07/20 PNV no.170-iron fum-folic acid 1 tab PO DAILY #30 tab 12/15/20 omeprazole 20 mg PO DAILY #30 cap 12/15/20 cyclobenzaprine 10 mg PO TID PRN #20 tab 12/27/20 lidocaine 1 patch TOPICAL Q24H #15 ea 12/27/20 ondansetron 4 mg PO Q8H PRN #20 tab 01/02/21 naloxone [Narcan] 4 mg INTRANASAL Q3M PRN #2 ea 01/08/21 cyclobenzaprine 10 mg PO TID PRN #10 tab 01/16/21 ketorolac 10 mg PO Q8H PRN #10 tab 01/16/21 ketorolac 10 mg PO Q6H PRN 5 Days #20 tab 01/27/21 ibuprofen 600 mg PO Q6H PRN #20 tab 02/10/21 loperamide [Anti-Diarrheal 2 mg PO Q4H PRN #10 tab 02/10/21 (loperamide)] ondansetron HCl [Zofran] 4 mg PO Q6H PRN #14 tab 02/10/21 ondansetron 4 mg PO Q6-8H PRN #14 tab 02/13/21 pantoprazole [Protonix] 20 mg PO DAILY #30 tab 02/13/21 cyclobenzaprine 10 mg PO TID PRN #18 tab 02/16/21 naproxen 500 mg PO BID PRN #20 tab 02/16/21 lidocaine 1 patch TOPICAL DAILY PRN #10 ea 02/19/21 cyclobenzaprine 10 mg PO TID #10 tab 02/27/21 naproxen [Naprosyn] 500 mg PO BID #20 tab 02/27/21 cyclobenzaprine 5 mg PO TID PRN #10 tab 03/02/21 ibuprofen 600 mg PO Q6H PRN #14 tab 03/02/21 lidocaine 1 patch TOPICAL DAILY PRN #15 ea 03/02/21 oxycodone 5 mg PO Q6H PRN #5 tab 03/02/21 Allergies Allergy/AdvReac Type Severity Reaction Status Date / Time Penicillins [PCN] Allergy Mild RASH Verified 02/16/21 09:22 silver AdvReac Intermediate rash Verified 02/16/21 09:22 [From [employer]] Review of Systems Review of Systems: Constitutional : No Weight loss, No Fever, No Chills, ENT/Mouth : No Hearing loss, No Ear Pain Cardiovascular : No Chest Pain, No SOB Respiratory : No Cough, No Dyspnea Gastrointestinal : No Nausea, No Vomiting Genitourinary : No Dysuria, No Urinary Frequency, No Hematuria, No Urinary Incontinence, Musculoskeletal : positive back pain Neuro : No Weakness, No Numbness, No Paresthesias, no loss of bowel or bladder incontinence, no saddle anesthesia PMFSH Past Medical History Attestation statement: The following information was validated with the patient. Medical History Anxiety Bipolar 1 disorder Contusion Depression Foot drop, right foot Heart murmur Schizophrenia Surgical History No pertinent past surgical history Social History Social History Alcohol intake: unknown Smoking Status: Current every day smoker Use of substances other than those prescribed or required for medical reasons: Yes Substance Use Type: Marijuana Advance Directives: No Physical Exam Vital Signs: Vital Signs: Last Vital Signs Temp 98.9 F 03/11/21 05:19 Pulse 82 03/11/21 05:19 Resp 16 03/11/21 05:19 BP 129/68 03/11/21 05:19 Pulse Ox 97 03/11/21 05:19 Body Mass Index 22.5 Appearance: Alert. Oriented X3. No acute distress. Eyes: Pupils equal, round and reactive to light. Neck: Normal inspection. Neck supple. CVS: Pulses normal. Respiratory: No respiratory distress. Skin: Skin warm and dry. Normal skin color. Extremities: No lower extremity edema. Neuro: Oriented X 3. No motor deficit. No sensory deficit. Steady gait MDM - Back Pain/Injury MDM Narrative Medical decision making narrative: 36 yo male laying on stretcher able to walk without issue, comes in with c/o chronic back pain, usually wants a sandwich and a lidocaine patch, no neuro findings, refuses to stay longer in the ED at this time Discharge Plan Discharge Clinical Impression: Chronic back pain Qualifiers: Back pain location: low back pain Back pain laterality: bilateral Sciatica presence: without sciatica Qualified Code(s): M54.5 - Low back pain Patient Disposition: Elopement Prescriptions: No Action ketorolac 10 mg tablet 10 mg PO Q6H PRN (Reason: pain) 5 Days Qty: 20 RF: 0 naproxen 500 mg tablet 500 mg PO BID PRN (Reason: pain) Qty: 14 RF: 0 cyclobenzaprine 5 mg tablet 5 mg PO TID PRN (Reason: muscle spasm) Qty: 10 RF: 0 (DME) cane Device See Rx Instructions .ROUTE .MEDSUPPLY Qty: 1 RF: 0 cyclobenzaprine 10 mg tablet 10 mg PO BEDTIME PRN (Reason: muscle spasm) Qty: 3 RF: 0 doxycycline monohydrate 100 mg capsule 100 mg PO BID 7 Days Qty: 14 RF: 0 cephalexin [Keflex] 500 mg capsule 500 mg PO QID 7 Days Qty: 28 RF: 0 lidocaine [Lidoderm] 5 % adhesive patch,medicated 1 patch topical DAILY Qty: 15 RF: 0 ibuprofen 600 mg tablet 600 mg PO Q8H PRN (Reason: pain) Qty: 15 RF: 0 cyclobenzaprine 10 mg tablet 10 mg PO TID PRN (Reason: muscle spasm) Qty: 8 RF: 0 lidocaine [Lidoderm] 5 % adhesive patch,medicated 1 patch topical DAILY PRN (Reason: pain) Qty: 1 RF: 0 ibuprofen 400 mg tablet 400 mg PO Q6H PRN (Reason: pain) Qty: 20 RF: 0 omeprazole 40 mg capsule,delayed release(DR/EC) 40 mg PO DAILY Qty: 20 RF: 0 sucralfate [Carafate] 1 gram tablet 1 g PO BID Qty: 30 RF: 0 mupirocin 2 % ointment 1 appl topical BID Qty: 15 RF: 0 omeprazole 20 mg capsule,delayed release(DR/EC) 20 mg PO DAILY Qty: 30 RF: 0 PNV no.170-iron fum-folic acid 27 mg iron- 1 mg tablet 1 tab PO DAILY Qty: 30 RF: 0 cyclobenzaprine 10 mg tablet 10 mg PO TID PRN (Reason: muscle pain or spasm) Qty: 20 RF: 0 lidocaine 5 % adhesive patch,medicated 1 patch topical Q24H Qty: 15 RF: 0 ondansetron 4 mg tablet,disintegrating 4 mg PO Q8H PRN (Reason: nausea and vomiting) Qty: 20 RF: 0 Narcan 4 mg/actuation spray,non-aerosol 4 mg intranasal Q3M PRN (Reason: opioid overdose) Qty: 2 RF: 0 ketorolac 10 mg tablet 10 mg PO Q6H PRN (Reason: pain) 5 Days Qty: 20 RF: 0 ondansetron HCl [Zofran] 4 mg tablet 4 mg PO Q6H PRN (Reason: nausea and vomiting) Qty: 14 RF: 0 loperamide [Anti-Diarrheal (loperamide)] 2 mg tablet 2 mg PO Q4H PRN (Reason: loose stool) Qty: 10 RF: 0 ibuprofen 600 mg tablet 600 mg PO Q6H PRN (Reason: fever or pain) Qty: 20 RF: 0 lidocaine 5 % adhesive patch,medicated 1 patch topical DAILY PRN (Reason: back pain) Qty: 15 RF: 0 oxycodone 5 mg tablet 5 mg PO Q6H PRN (Reason: pain) Qty: 5 RF: 0 ibuprofen 600 mg tablet 600 mg PO Q6H PRN (Reason: pain) Qty: 14 RF: 0 cyclobenzaprine 5 mg tablet 5 mg PO TID PRN (Reason: muscle spasm) Qty: 10 RF: 0 Atarax 100 mg Tablet 100 mg PO NEEDED PRN (Reason: Anxiety) RF: 0 hydrocortisone [Anusol-HC] 2.5 % cream with perineal applicator 1 applic [place] BEDTIME PRN (Reason: pain) Qty: 30 RF: 0 polyethylene glycol 3350 [Miralax] 17 gram/dose powder 17 g PO DAILY Qty: 119 RF: 0 cyclobenzaprine 10 mg tablet 10 mg PO TID PRN (Reason: muscle spasm) Qty: 30 RF: 0 tramadol 50 mg tablet 50 mg PO Q8H PRN (Reason: pain) Qty: 12 RF: 0 cyclobenzaprine 5 mg tablet 5 mg PO TID PRN (Reason: muscle spasm) Qty: 5 RF: 0 cyclobenzaprine 10 mg tablet 10 mg PO TID PRN (Reason: muscle spasm) Qty: 20 RF: 0 ketorolac 10 mg tablet 10 mg PO QID 5 Days Qty: 20 RF: 0 methocarbamol [Robaxin-750] 750 mg tablet 750 mg PO Q8H PRN (Reason: pain, severe) Qty: 10 RF: 0 acetaminophen [Tylenol Extra Strength] 500 mg tablet 500 mg PO Q6H PRN (Reason: pain or fever) Qty: 20 RF: 0 lidocaine [Lidoderm] 5 % adhesive patch,medicated 1 patch topical DAILY MDD remove after 12 hours PRN (Reason: pain) Qty: 30 RF: 0 naproxen 500 mg tablet 500 mg PO BID PRN (Reason: pain) 10 Days Qty: 20 RF: 0 cyclobenzaprine 10 mg tablet 10 mg PO TID PRN (Reason: muscle spasm) Qty: 14 RF: 0 lidocaine 4 % adhesive patch,medicated 1 patch topical DAILY PRN (Reason: pain) Qty: 10 RF: 0 ibuprofen 600 mg tablet 600 mg PO Q6H PRN (Reason: pain) Qty: 30 RF: 0 ketorolac 10 mg tablet 10 mg PO Q8H PRN (Reason: pain) Qty: 10 RF: 0 cyclobenzaprine 10 mg tablet 10 mg PO TID PRN (Reason: muscle spasm) Qty: 10 RF: 0 pantoprazole [Protonix] 20 mg tablet,delayed release (DR/EC) 20 mg PO DAILY Qty: 30 RF: 0 ondansetron 4 mg tablet,disintegrating 4 mg PO Q6-8H PRN (Reason: nausea and vomiting) Qty: 14 RF: 0 cyclobenzaprine 10 mg tablet 10 mg PO TID PRN (Reason: pain) Qty: 18 RF: 0 naproxen 500 mg tablet 500 mg PO BID PRN (Reason: pain) Qty: 20 RF: 0 lidocaine 4 % adhesive patch,medicated 1 patch topical DAILY PRN (Reason: pain) Qty: 10 RF: 0 cyclobenzaprine 10 mg tablet 10 mg PO TID Qty: 10 RF: 0 naproxen [Naprosyn] 500 mg tablet 500 mg PO BID Qty: 20 RF: 0 Interventions: ED Discharge Assessment Last Done: 03/11/21 06:49 Discharge Date/Time: 03/11/21 06:51
--- NOTE | 2021-03-11 06:47 | PC.NURSE ---
Patient stated that he has been here long enough and he is not willing to wait anymore for medication or discharged papers. Patient eloped.
== END 2021-03-11 06:51 | disposition left against medical advice (07) ==
PROVIDERS: Emergency Provider Emergency Medicine
DX: G89.29 Other chronic pain (principal); M54.5 Low back pain; F99 Mental disorder, not otherwise specified; I10 Essential (primary) hypertension; M21.371 Foot drop, right foot; F19.10 Other psychoactive substance abuse, uncomplicated; F12.90 Cannabis use, unspecified, uncomplicated; F17.200 Nicotine dependence, unspecified, uncomplicated
CPT/HCPCS: 99283; 99284

== ENCOUNTER 2021-03-28 04:59 | Emergency (ER) | payer OTHER, SELFPAY ==
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
[2021-03-28 05:03] VITALS: BP 137/78; PULSE 81; RESP 18; TEMP 36.9; O2SAT 98; BMI 29.2
--- NOTE | 2021-03-28 05:35 | PC.NURSE ---
PT AMBULATORY WITH STEADY GAIT TO BATHROOM. REMOVED HIS LIDO PATCHES FROM LOWER BACK IN ROOM AND DISPOSED OF THEM. PT REQUESTED AND WAS GIVEN LARGE CONTAINER OF WATER. PT CATCHING UP ON PHONE CALLS WITH HOSPITAL PHONE.
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
[2021-03-28] MEDS: Ketorolac Tromethamine 60 MG/2 ML VIAL IM (06:15)
--- NOTE | 2021-03-28 06:34 | PC.NURSE ---
PT REQUESTED AND WAS GIVEN A FEW SANDWICHES AND SODAS.
== END 2021-03-28 06:38 | disposition home or self-care (01) ==
PROVIDERS: Emergency Provider Emergency Medicine
DX: M54.5 Low back pain (principal); I10 Essential (primary) hypertension; M21.371 Foot drop, right foot; F20.9 Schizophrenia, unspecified; F19.10 Other psychoactive substance abuse, uncomplicated; R01.1 Cardiac murmur, unspecified; Z86.16 Personal history of COVID-19; Z79.899 Other long term (current) drug therapy
CPT/HCPCS: 72100; 96372; 99283; 99284; J1885

== ENCOUNTER 2021-03-31 09:35 | Emergency (ER) | payer OTHER, SELFPAY ==
[2021-03-31 09:48] VITALS: BP 125/83; PULSE 69; RESP 16; TEMP 36.3; O2SAT 100; BMI 25.0
--- NOTE | 2021-03-31 10:40 | ED.SKABFB ---
HPI - Skin/Abscess/Foreign Bdy General Chief complaint: Skin/Abscess/Foreign Body Stated complaint: GROWTH ON BACK OF NECK Time Seen by Provider: 03/31/21 10:18 Source: patient Mode of arrival: ambulatory Limitations: no limitations History of Present Illness HPI narrative: 36-year-old healthy male who is up-to-date on immunizations who presents the emergency department with skin rash/bump to the posterior neck. Patient states he notices this morning is concerned it could be infection from heat. States he has been outside and he recently with lots of sweat. Denies fevers or chills. Denies chest pain or shortness of breath. Denies issues with ranging the neck. Does have a history of skin abscesses in the past denies MRSA history. Related Data Home Medications Medication Instructions Recorded Confirmed hydroxyzine HCl [Atarax] 100 mg PO NEEDED PRN 08/03/20 08/03/20 Previous Rx's Medication Instructions Recorded hydrocortisone [Anusol-HC] 1 applic GA BEDTIME PRN #30 g 08/13/20 polyethylene glycol 3350 [Miralax] 17 g PO DAILY #119 g 08/13/20 cyclobenzaprine 10 mg PO TID PRN #30 tab 08/15/20 tramadol 50 mg PO Q8H PRN #12 tab 08/15/20 ketorolac 10 mg PO Q6H PRN 5 Days #20 tab 08/17/20 cane #1 ea 09/01/20 cyclobenzaprine 5 mg PO TID PRN #10 tab 09/01/20 naproxen 500 mg PO BID PRN #14 tab 09/01/20 cyclobenzaprine 5 mg PO TID PRN #5 tab 09/08/20 cyclobenzaprine 10 mg PO BEDTIME PRN #3 tab 09/17/20 cyclobenzaprine 10 mg PO TID PRN #20 tab 09/22/20 ketorolac 10 mg PO QID 5 Days #20 tab 09/22/20 cephalexin [Keflex] 500 mg PO QID 7 Days #28 cap 09/26/20 doxycycline monohydrate 100 mg PO BID 7 Days #14 cap 09/26/20 cyclobenzaprine 10 mg PO TID PRN #8 tab 09/29/20 ibuprofen 600 mg PO Q8H PRN #15 tab 09/29/20 lidocaine [Lidoderm] 1 patch TOPICAL DAILY #15 ea 09/29/20 acetaminophen [Tylenol Extra 500 mg PO Q6H PRN #20 tab 10/04/20 Strength] lidocaine [Lidoderm] 1 patch TOPICAL DAILY PRN #30 ea 10/04/20 MDD remove after 12 hours methocarbamol [Robaxin-750] 750 mg PO Q8H PRN #10 tab 10/04/20 naproxen 500 mg PO BID PRN 10 Days #20 tab 10/04/20 ibuprofen 400 mg PO Q6H PRN #20 tab 10/30/20 lidocaine [Lidoderm] 1 patch TOPICAL DAILY PRN #1 ea 10/30/20 omeprazole 40 mg PO DAILY #20 cap 11/04/20 sucralfate [Carafate] 1 g PO BID #30 tab 11/04/20 mupirocin 1 appl TOPICAL BID #15 g 12/04/20 cyclobenzaprine 10 mg PO TID PRN #14 tab 12/07/20 ibuprofen 600 mg PO Q6H PRN #30 tab 12/07/20 lidocaine 1 patch TOPICAL DAILY PRN #10 ea 12/07/20 PNV no.170-iron fum-folic acid 1 tab PO DAILY #30 tab 12/15/20 omeprazole 20 mg PO DAILY #30 cap 12/15/20 cyclobenzaprine 10 mg PO TID PRN #20 tab 12/27/20 lidocaine 1 patch TOPICAL Q24H #15 ea 12/27/20 ondansetron 4 mg PO Q8H PRN #20 tab 01/02/21 naloxone [Narcan] 4 mg INTRANASAL Q3M PRN #2 ea 01/08/21 cyclobenzaprine 10 mg PO TID PRN #10 tab 01/16/21 ketorolac 10 mg PO Q8H PRN #10 tab 01/16/21 ketorolac 10 mg PO Q6H PRN 5 Days #20 tab 01/27/21 ibuprofen 600 mg PO Q6H PRN #20 tab 02/10/21 loperamide [Anti-Diarrheal 2 mg PO Q4H PRN #10 tab 02/10/21 (loperamide)] ondansetron HCl [Zofran] 4 mg PO Q6H PRN #14 tab 02/10/21 ondansetron 4 mg PO Q6-8H PRN #14 tab 02/13/21 pantoprazole [Protonix] 20 mg PO DAILY #30 tab 02/13/21 cyclobenzaprine 10 mg PO TID PRN #18 tab 02/16/21 naproxen 500 mg PO BID PRN #20 tab 02/16/21 lidocaine 1 patch TOPICAL DAILY PRN #10 ea 02/19/21 cyclobenzaprine 10 mg PO TID #10 tab 02/27/21 naproxen [Naprosyn] 500 mg PO BID #20 tab 02/27/21 cyclobenzaprine 5 mg PO TID PRN #10 tab 03/02/21 ibuprofen 600 mg PO Q6H PRN #14 tab 03/02/21 lidocaine 1 patch TOPICAL DAILY PRN #15 ea 03/02/21 oxycodone 5 mg PO Q6H PRN #5 tab 03/02/21 cyclobenzaprine 10 mg PO TID PRN #10 tab 03/28/21 lidocaine [Aspercreme (lidocaine 1 patch TOPICAL BID PRN #10 ea 03/28/21 HCl)] doxycycline hyclate 100 mg PO BID #20 cap 03/31/21 Allergies Allergy/AdvReac Type Severity Reaction Status Date / Time Penicillins [PCN] Allergy Mild RASH Verified 03/28/21 05:03 silver AdvReac Intermediate rash Verified 03/28/21 05:03 [From TEGADERM AG MESH] Review of Systems Review of Systems: Constitutional : No Weight loss, No Fever, No Chills, No Night Sweats, No Fatigue, No Malaise ENT/Mouth : No Hearing loss, No Ear Pain, No Nasal Congestion, No Sinus Pain, No Hoarseness, No sore throat, No Rhinorrhea, No Swallowing Difficulty Eyes: No Eye Pain, No Swelling, No Redness, No Foreign Body, No Discharge, No Vision Changes Cardiovascular : No Chest Pain, No SOB, No Dyspnea on Exertion, No Orthopnea, No Edema, No Palpitations Respiratory : No Cough, No Sputum, No Wheezing, No Smoke Exposure, No Dyspnea Gastrointestinal : No Nausea, No Vomiting, No Diarrhea, No Constipation, No abdominal Pain, No Hematochezia, No Melena Genitourinary : no irregular bleeding, No Dysuria, No Urinary Frequency, No Hematuria, No Urinary Incontinence, No Urgency, No Flank Pain, No Urinary Flow Changes, No Hesitancy Musculoskeletal : No joint pain, No Myalgias, No Joint Swelling Skin : + rash/edema to posterior neck Neuro : No Weakness, No Numbness, No Paresthesias, No Loss of Consciousness, No Dizziness, No Headache Psych : No Anxiety/Panic, No Depression, No SI/HI/AH/VH, No Social Issues, Heme/Lymph: No Bruising, No Bleeding,No Lymphadenopathy Endocrine : No Polyuria, No Polydipsia, No Temperature Intolerance [facility] Past Medical History Attestation statement: The following information was validated with the patient. Source: old records reviewed and nursing notes reviewed Medical History Anxiety Bipolar 1 disorder Contusion Depression Foot drop, right foot Heart murmur Schizophrenia Surgical History No pertinent past surgical history Social History Social History Alcohol intake: unknown Substance Use Type: Marijuana Advance Directives: Yes Advance Directives Information Provided: Yes Advance Directives on File: No Physical Exam Vital Signs: Vital Signs: Last Vital Signs Temp 97.3 F 03/31/21 09:48 Pulse 69 03/31/21 09:48 Resp 16 03/31/21 09:48 BP 125/83 03/31/21 09:48 Pulse Ox 100 03/31/21 09:48 Body Mass Index 25.0 vital signs have been reviewed as normal and appeared to be correct. Blood pressure normal. Heart rate normal. Respiration rate normal. Temperature normal. Oxygen saturation normal. Appearance: Alert. Oriented X3. No acute distress. Head: Normal external exam. Normocephalic. Atraumatic. No Hernandez signs noted. No raccoon eyes noted Eyes: PERRLA. EOMI. Conjunctiva and sclera normal. Eyelids normal. ENT: EAC normal. Moist mucous membranes. No trismus noted. No drooling noted. No muffled voice noted. Neck: Normal inspection. Neck supple. FROM. No adenopathy. No meningeal signs. Patient with small circular area of erythema and underlying firmness to the mid posterior neck. No fluctuation no streaking. Consistent with a folliculitis CVS: Pulses normal throughout. Respiratory: No respiratory distress. Chest nontender. No accessory muscle usage noted or decreased air movement noted. Abdomen: No distention noted. No visible injury noted. Back: Full range of motion noted. Skin: Skin warm and dry. Normal skin color. Normal skin turgor. Extremities: No lower extremity edema. Extremities exhibit normal range of motion. Extremities nontender. Neuro: Oriented X 3. No motor deficit. No sensory deficit. MDM - Skin/Abscess/Foreign Bdy MDM Narrative Medical decision making narrative: Patient's vital signs are stable and he is afebrile. Patient presenting to the emergency department with rash/edema to the posterior neck consistent with a mild cellulitis versus folliculitis. No fluctuance that would benefit from drainage do not feel there is a abscess fluid collection at this time. Given penicillin allergy will treat with doxycycline and advise close primary care follow-up and strict return precautions patient is comfortable with this plan and feel that discharge is safe at this time. Differential Diagnosis Differential diagnosis: Likely abscess of skin or subcutaneous tissue, cellulitis, insect bites and contact dermatitis Medical Records Attestation: I reviewed the patient's medical records. Lab Data Attestation: I reviewed the patient's lab results. Discharge Plan Discharge Clinical Impression: Cellulitis Qualifiers: Site of cellulitis: neck Qualified Code(s): L03.221 - Cellulitis of neck Patient Disposition: Home, Self-Care Instructions: Cellulitis (ED) Additional Instructions: You were seen in the emergency department today due to a rash with swelling to the neck this is consistent with early cellulitis/skin infection or an infected hair/folliculitis. There is nothing to drain at this time however if the bump becomes larger and more painful you develop fevers please return to the emergency department. Prescriptions: New doxycycline hyclate 100 mg capsule 100 mg PO BID Qty: 20 RF: 0 No Action ketorolac 10 mg tablet 10 mg PO Q6H PRN (Reason: pain) 5 Days Qty: 20 RF: 0 naproxen 500 mg tablet 500 mg PO BID PRN (Reason: pain) Qty: 14 RF: 0 cyclobenzaprine 5 mg tablet 5 mg PO TID PRN (Reason: muscle spasm) Qty: 10 RF: 0 (DME) cane Device See Rx Instructions .ROUTE .MEDSUPPLY Qty: 1 RF: 0 cyclobenzaprine 10 mg tablet 10 mg PO BEDTIME PRN (Reason: muscle spasm) Qty: 3 RF: 0 doxycycline monohydrate 100 mg capsule 100 mg PO BID 7 Days Qty: 14 RF: 0 cephalexin [Keflex] 500 mg capsule 500 mg PO QID 7 Days Qty: 28 RF: 0 lidocaine [Lidoderm] 5 % adhesive patch,medicated 1 patch topical DAILY Qty: 15 RF: 0 ibuprofen 600 mg tablet 600 mg PO Q8H PRN (Reason: pain) Qty: 15 RF: 0 cyclobenzaprine 10 mg tablet 10 mg PO TID PRN (Reason: muscle spasm) Qty: 8 RF: 0 lidocaine [Lidoderm] 5 % adhesive patch,medicated 1 patch topical DAILY PRN (Reason: pain) Qty: 1 RF: 0 ibuprofen 400 mg tablet 400 mg PO Q6H PRN (Reason: pain) Qty: 20 RF: 0 omeprazole 40 mg capsule,delayed release(DR/EC) 40 mg PO DAILY Qty: 20 RF: 0 sucralfate [Carafate] 1 gram tablet 1 g PO BID Qty: 30 RF: 0 mupirocin 2 % ointment 1 appl topical BID Qty: 15 RF: 0 omeprazole 20 mg capsule,delayed release(DR/EC) 20 mg PO DAILY Qty: 30 RF: 0 PNV no.170-iron fum-folic acid 27 mg iron- 1 mg tablet 1 tab PO DAILY Qty: 30 RF: 0 cyclobenzaprine 10 mg tablet 10 mg PO TID PRN (Reason: muscle pain or spasm) Qty: 20 RF: 0 lidocaine 5 % adhesive patch,medicated 1 patch topical Q24H Qty: 15 RF: 0 ondansetron 4 mg tablet,disintegrating 4 mg PO Q8H PRN (Reason: nausea and vomiting) Qty: 20 RF: 0 Narcan 4 mg/actuation spray,non-aerosol 4 mg intranasal Q3M PRN (Reason: opioid overdose) Qty: 2 RF: 0 ketorolac 10 mg tablet 10 mg PO Q6H PRN (Reason: pain) 5 Days Qty: 20 RF: 0 ondansetron HCl [Zofran] 4 mg tablet 4 mg PO Q6H PRN (Reason: nausea and vomiting) Qty: 14 RF: 0 loperamide [Anti-Diarrheal (loperamide)] 2 mg tablet 2 mg PO Q4H PRN (Reason: loose stool) Qty: 10 RF: 0 ibuprofen 600 mg tablet 600 mg PO Q6H PRN (Reason: fever or pain) Qty: 20 RF: 0 lidocaine 5 % adhesive patch,medicated 1 patch topical DAILY PRN (Reason: back pain) Qty: 15 RF: 0 oxycodone 5 mg tablet 5 mg PO Q6H PRN (Reason: pain) Qty: 5 RF: 0 ibuprofen 600 mg tablet 600 mg PO Q6H PRN (Reason: pain) Qty: 14 RF: 0 cyclobenzaprine 5 mg tablet 5 mg PO TID PRN (Reason: muscle spasm) Qty: 10 RF: 0 cyclobenzaprine 10 mg tablet 10 mg PO TID PRN (Reason: muscle spasm) Qty: 10 RF: 0 lidocaine [Aspercreme (lidocaine HCl)] 4 % adhesive patch,medicated 1 patch topical BID PRN (Reason: pain) Qty: 10 RF: 0 Atarax 100 mg Tablet 100 mg PO NEEDED PRN (Reason: Anxiety) RF: 0 hydrocortisone [Anusol-HC] 2.5 % cream with perineal applicator 1 applic GA BEDTIME PRN (Reason: pain) Qty: 30 RF: 0 polyethylene glycol 3350 [Miralax] 17 gram/dose powder 17 g PO DAILY Qty: 119 RF: 0 cyclobenzaprine 10 mg tablet 10 mg PO TID PRN (Reason: muscle spasm) Qty: 30 RF: 0 tramadol 50 mg tablet 50 mg PO Q8H PRN (Reason: pain) Qty: 12 RF: 0 cyclobenzaprine 5 mg tablet 5 mg PO TID PRN (Reason: muscle spasm) Qty: 5 RF: 0 cyclobenzaprine 10 mg tablet 10 mg PO TID PRN (Reason: muscle spasm) Qty: 20 RF: 0 ketorolac 10 mg tablet 10 mg PO QID 5 Days Qty: 20 RF: 0 methocarbamol [Robaxin-750] 750 mg tablet 750 mg PO Q8H PRN (Reason: pain, severe) Qty: 10 RF: 0 acetaminophen [Tylenol Extra Strength] 500 mg tablet 500 mg PO Q6H PRN (Reason: pain or fever) Qty: 20 RF: 0 lidocaine [Lidoderm] 5 % adhesive patch,medicated 1 patch topical DAILY MDD remove after 12 hours PRN (Reason: pain) Qty: 30 RF: 0 naproxen 500 mg tablet 500 mg PO BID PRN (Reason: pain) 10 Days Qty: 20 RF: 0 cyclobenzaprine 10 mg tablet 10 mg PO TID PRN (Reason: muscle spasm) Qty: 14 RF: 0 lidocaine 4 % adhesive patch,medicated 1 patch topical DAILY PRN (Reason: pain) Qty: 10 RF: 0 ibuprofen 600 mg tablet 600 mg PO Q6H PRN (Reason: pain) Qty: 30 RF: 0 ketorolac 10 mg tablet 10 mg PO Q8H PRN (Reason: pain) Qty: 10 RF: 0 cyclobenzaprine 10 mg tablet 10 mg PO TID PRN (Reason: muscle spasm) Qty: 10 RF: 0 pantoprazole [Protonix] 20 mg tablet,delayed release (DR/EC) 20 mg PO DAILY Qty: 30 RF: 0 ondansetron 4 mg tablet,disintegrating 4 mg PO Q6-8H PRN (Reason: nausea and vomiting) Qty: 14 RF: 0 cyclobenzaprine 10 mg tablet 10 mg PO TID PRN (Reason: pain) Qty: 18 RF: 0 naproxen 500 mg tablet 500 mg PO BID PRN (Reason: pain) Qty: 20 RF: 0 lidocaine 4 % adhesive patch,medicated 1 patch topical DAILY PRN (Reason: pain) Qty: 10 RF: 0 cyclobenzaprine 10 mg tablet 10 mg PO TID Qty: 10 RF: 0 naproxen [Naprosyn] 500 mg tablet 500 mg PO BID Qty: 20 RF: 0 Referrals: Physician,Unknown [Primary Care Provider] - 2 days (your primary care doctor) Interventions: ED Discharge Assessment Last Done: 03/31/21 10:58 Discharge Date/Time: 03/31/21 11:01 Print Language: Sami
== END 2021-03-31 11:01 | disposition home or self-care (01) ==
PROVIDERS: Emergency Provider Emergency Medicine Emergency Medical Services
DX: L03.221 Cellulitis of neck (principal); F12.90 Cannabis use, unspecified, uncomplicated; M21.371 Foot drop, right foot; Z86.16 Personal history of COVID-19
CPT/HCPCS: 99283

== ENCOUNTER 2021-04-12 08:28 | Emergency (ER) | payer OTHER, SELFPAY ==
[2021-04-12 08:34] VITALS: BP 136/77; PULSE 78; RESP 18; TEMP 36.8; O2SAT 98; BMI 24.0
--- NOTE | 2021-04-12 09:45 | ED.GENADULT ---
HPI - General Adult General Chief complaint: General Medical Stated complaint: RASH Time Seen by Provider: 04/12/21 09:41 Source: patient Mode of arrival: ambulatory Limitations: no limitations History of Present Illness HPI narrative: The patient is a 36-year-old male was well known to this emergency department, of anxiety, bipolar 1 and schizophrenia who presents with a 1 week small circular rash on the upper right extremity which is itchy. He denies fevers. Related Data Home Medications Medication Instructions Recorded Confirmed hydroxyzine HCl [Atarax] 100 mg PO NEEDED PRN 08/03/20 08/03/20 Previous Rx's Medication Instructions Recorded hydrocortisone [Anusol-HC] 1 applic UT BEDTIME PRN #30 g 08/13/20 polyethylene glycol 3350 [Miralax] 17 g PO DAILY #119 g 08/13/20 cyclobenzaprine 10 mg PO TID PRN #30 tab 08/15/20 tramadol 50 mg PO Q8H PRN #12 tab 08/15/20 ketorolac 10 mg PO Q6H PRN 5 Days #20 tab 08/17/20 cane #1 ea 09/01/20 cyclobenzaprine 5 mg PO TID PRN #10 tab 09/01/20 naproxen 500 mg PO BID PRN #14 tab 09/01/20 cyclobenzaprine 5 mg PO TID PRN #5 tab 09/08/20 cyclobenzaprine 10 mg PO BEDTIME PRN #3 tab 09/17/20 cyclobenzaprine 10 mg PO TID PRN #20 tab 09/22/20 ketorolac 10 mg PO QID 5 Days #20 tab 09/22/20 cephalexin [Keflex] 500 mg PO QID 7 Days #28 cap 09/26/20 doxycycline monohydrate 100 mg PO BID 7 Days #14 cap 09/26/20 cyclobenzaprine 10 mg PO TID PRN #8 tab 09/29/20 ibuprofen 600 mg PO Q8H PRN #15 tab 09/29/20 lidocaine [Lidoderm] 1 patch TOPICAL DAILY #15 ea 09/29/20 acetaminophen [Tylenol Extra 500 mg PO Q6H PRN #20 tab 10/04/20 Strength] lidocaine [Lidoderm] 1 patch TOPICAL DAILY PRN #30 ea 10/04/20 MDD remove after 12 hours methocarbamol [Robaxin-750] 750 mg PO Q8H PRN #10 tab 10/04/20 naproxen 500 mg PO BID PRN 10 Days #20 tab 10/04/20 ibuprofen 400 mg PO Q6H PRN #20 tab 10/30/20 lidocaine [Lidoderm] 1 patch TOPICAL DAILY PRN #1 ea 10/30/20 omeprazole 40 mg PO DAILY #20 cap 11/04/20 sucralfate [Carafate] 1 g PO BID #30 tab 11/04/20 mupirocin 1 appl TOPICAL BID #15 g 12/04/20 cyclobenzaprine 10 mg PO TID PRN #14 tab 12/07/20 ibuprofen 600 mg PO Q6H PRN #30 tab 12/07/20 lidocaine 1 patch TOPICAL DAILY PRN #10 ea 12/07/20 PNV no.170-iron fum-folic acid 1 tab PO DAILY #30 tab 12/15/20 omeprazole 20 mg PO DAILY #30 cap 12/15/20 cyclobenzaprine 10 mg PO TID PRN #20 tab 12/27/20 lidocaine 1 patch TOPICAL Q24H #15 ea 12/27/20 ondansetron 4 mg PO Q8H PRN #20 tab 01/02/21 naloxone [Narcan] 4 mg INTRANASAL Q3M PRN #2 ea 01/08/21 cyclobenzaprine 10 mg PO TID PRN #10 tab 01/16/21 ketorolac 10 mg PO Q8H PRN #10 tab 01/16/21 ketorolac 10 mg PO Q6H PRN 5 Days #20 tab 01/27/21 ibuprofen 600 mg PO Q6H PRN #20 tab 02/10/21 loperamide [Anti-Diarrheal 2 mg PO Q4H PRN #10 tab 02/10/21 (loperamide)] ondansetron HCl [Zofran] 4 mg PO Q6H PRN #14 tab 02/10/21 ondansetron 4 mg PO Q6-8H PRN #14 tab 02/13/21 pantoprazole [Protonix] 20 mg PO DAILY #30 tab 02/13/21 cyclobenzaprine 10 mg PO TID PRN #18 tab 02/16/21 naproxen 500 mg PO BID PRN #20 tab 02/16/21 lidocaine 1 patch TOPICAL DAILY PRN #10 ea 02/19/21 cyclobenzaprine 10 mg PO TID #10 tab 02/27/21 naproxen [Naprosyn] 500 mg PO BID #20 tab 02/27/21 cyclobenzaprine 5 mg PO TID PRN #10 tab 03/02/21 ibuprofen 600 mg PO Q6H PRN #14 tab 03/02/21 lidocaine 1 patch TOPICAL DAILY PRN #15 ea 03/02/21 oxycodone 5 mg PO Q6H PRN #5 tab 03/02/21 cyclobenzaprine 10 mg PO TID PRN #10 tab 03/28/21 lidocaine [Aspercreme (lidocaine 1 patch TOPICAL BID PRN #10 ea 03/28/21 HCl)] doxycycline hyclate 100 mg PO BID #20 cap 03/31/21 triamcinolone acetonide 1 appl TOPICAL BID #15 g 04/12/21 Allergies Allergy/AdvReac Type Severity Reaction Status Date / Time Penicillins [PCN] Allergy Mild RASH Verified 03/28/21 05:03 silver AdvReac Intermediate rash Verified 03/28/21 05:03 [From TEGADERM AG MESH] Review of Systems Review of Systems: Yes all other systems are reviewed and are negative [facility] Past Medical History Medical History Anxiety Bipolar 1 disorder Contusion Depression Foot drop, right foot Heart murmur Schizophrenia Surgical History No pertinent past surgical history Social History Social History Alcohol intake: unknown Substance Use Type: Marijuana Advance Directives: Yes Advance Directives Information Provided: Yes Advance Directives on File: No Physical Exam Vital Signs: Vital Signs: Last Vital Signs Temp 98.3 F 04/12/21 08:34 Pulse 78 04/12/21 08:34 Resp 18 04/12/21 08:34 BP 136/77 04/12/21 08:34 Pulse Ox 98 04/12/21 08:34 Body Mass Index 24.0 Const: General: cooperative, healthy appearing, comfortable and no acute distress Nutritional Appearance: average body habitus Orientation/consciousness: patient oriented x3 Limitations: no limitations Eyes: General: appearance normal, both eyes and all related structures Skin: Other: Right upper extremity, 1cm circular, dry, erythematous, non vescicular rash Neuro: General: patient oriented x3 Discharge Plan Discharge Clinical Impression: Rash and nonspecific skin eruption Patient Disposition: Home, Self-Care Instructions: Acute Rash (ED) Additional Instructions: As discussed, please use the cream I have sent to your pharmacy twice daily. If no relief, please follow up with your PCP. Prescriptions: New triamcinolone acetonide 0.025 % ointment 1 appl topical BID Qty: 15 RF: 0 No Action ketorolac 10 mg tablet 10 mg PO Q6H PRN (Reason: pain) 5 Days Qty: 20 RF: 0 naproxen 500 mg tablet 500 mg PO BID PRN (Reason: pain) Qty: 14 RF: 0 cyclobenzaprine 5 mg tablet 5 mg PO TID PRN (Reason: muscle spasm) Qty: 10 RF: 0 (DME) cane Device See Rx Instructions .ROUTE .MEDSUPPLY Qty: 1 RF: 0 cyclobenzaprine 10 mg tablet 10 mg PO BEDTIME PRN (Reason: muscle spasm) Qty: 3 RF: 0 doxycycline monohydrate 100 mg capsule 100 mg PO BID 7 Days Qty: 14 RF: 0 cephalexin [Keflex] 500 mg capsule 500 mg PO QID 7 Days Qty: 28 RF: 0 lidocaine [Lidoderm] 5 % adhesive patch,medicated 1 patch topical DAILY Qty: 15 RF: 0 ibuprofen 600 mg tablet 600 mg PO Q8H PRN (Reason: pain) Qty: 15 RF: 0 cyclobenzaprine 10 mg tablet 10 mg PO TID PRN (Reason: muscle spasm) Qty: 8 RF: 0 lidocaine [Lidoderm] 5 % adhesive patch,medicated 1 patch topical DAILY PRN (Reason: pain) Qty: 1 RF: 0 ibuprofen 400 mg tablet 400 mg PO Q6H PRN (Reason: pain) Qty: 20 RF: 0 omeprazole 40 mg capsule,delayed release(DR/EC) 40 mg PO DAILY Qty: 20 RF: 0 sucralfate [Carafate] 1 gram tablet 1 g PO BID Qty: 30 RF: 0 mupirocin 2 % ointment 1 appl topical BID Qty: 15 RF: 0 omeprazole 20 mg capsule,delayed release(DR/EC) 20 mg PO DAILY Qty: 30 RF: 0 PNV no.170-iron fum-folic acid 27 mg iron- 1 mg tablet 1 tab PO DAILY Qty: 30 RF: 0 cyclobenzaprine 10 mg tablet 10 mg PO TID PRN (Reason: muscle pain or spasm) Qty: 20 RF: 0 lidocaine 5 % adhesive patch,medicated 1 patch topical Q24H Qty: 15 RF: 0 ondansetron 4 mg tablet,disintegrating 4 mg PO Q8H PRN (Reason: nausea and vomiting) Qty: 20 RF: 0 Narcan 4 mg/actuation spray,non-aerosol 4 mg intranasal Q3M PRN (Reason: opioid overdose) Qty: 2 RF: 0 ketorolac 10 mg tablet 10 mg PO Q6H PRN (Reason: pain) 5 Days Qty: 20 RF: 0 ondansetron HCl [Zofran] 4 mg tablet 4 mg PO Q6H PRN (Reason: nausea and vomiting) Qty: 14 RF: 0 loperamide [Anti-Diarrheal (loperamide)] 2 mg tablet 2 mg PO Q4H PRN (Reason: loose stool) Qty: 10 RF: 0 ibuprofen 600 mg tablet 600 mg PO Q6H PRN (Reason: fever or pain) Qty: 20 RF: 0 lidocaine 5 % adhesive patch,medicated 1 patch topical DAILY PRN (Reason: back pain) Qty: 15 RF: 0 oxycodone 5 mg tablet 5 mg PO Q6H PRN (Reason: pain) Qty: 5 RF: 0 ibuprofen 600 mg tablet 600 mg PO Q6H PRN (Reason: pain) Qty: 14 RF: 0 cyclobenzaprine 5 mg tablet 5 mg PO TID PRN (Reason: muscle spasm) Qty: 10 RF: 0 cyclobenzaprine 10 mg tablet 10 mg PO TID PRN (Reason: muscle spasm) Qty: 10 RF: 0 lidocaine [Aspercreme (lidocaine HCl)] 4 % adhesive patch,medicated 1 patch topical BID PRN (Reason: pain) Qty: 10 RF: 0 Atarax 100 mg Tablet 100 mg PO NEEDED PRN (Reason: Anxiety) RF: 0 hydrocortisone [Anusol-HC] 2.5 % cream with perineal applicator 1 applic UT BEDTIME PRN (Reason: pain) Qty: 30 RF: 0 polyethylene glycol 3350 [Miralax] 17 gram/dose powder 17 g PO DAILY Qty: 119 RF: 0 cyclobenzaprine 10 mg tablet 10 mg PO TID PRN (Reason: muscle spasm) Qty: 30 RF: 0 tramadol 50 mg tablet 50 mg PO Q8H PRN (Reason: pain) Qty: 12 RF: 0 cyclobenzaprine 5 mg tablet 5 mg PO TID PRN (Reason: muscle spasm) Qty: 5 RF: 0 cyclobenzaprine 10 mg tablet 10 mg PO TID PRN (Reason: muscle spasm) Qty: 20 RF: 0 ketorolac 10 mg tablet 10 mg PO QID 5 Days Qty: 20 RF: 0 methocarbamol [Robaxin-750] 750 mg tablet 750 mg PO Q8H PRN (Reason: pain, severe) Qty: 10 RF: 0 acetaminophen [Tylenol Extra Strength] 500 mg tablet 500 mg PO Q6H PRN (Reason: pain or fever) Qty: 20 RF: 0 lidocaine [Lidoderm] 5 % adhesive patch,medicated 1 patch topical DAILY MDD remove after 12 hours PRN (Reason: pain) Qty: 30 RF: 0 naproxen 500 mg tablet 500 mg PO BID PRN (Reason: pain) 10 Days Qty: 20 RF: 0 cyclobenzaprine 10 mg tablet 10 mg PO TID PRN (Reason: muscle spasm) Qty: 14 RF: 0 lidocaine 4 % adhesive patch,medicated 1 patch topical DAILY PRN (Reason: pain) Qty: 10 RF: 0 ibuprofen 600 mg tablet 600 mg PO Q6H PRN (Reason: pain) Qty: 30 RF: 0 ketorolac 10 mg tablet 10 mg PO Q8H PRN (Reason: pain) Qty: 10 RF: 0 cyclobenzaprine 10 mg tablet 10 mg PO TID PRN (Reason: muscle spasm) Qty: 10 RF: 0 pantoprazole [Protonix] 20 mg tablet,delayed release (DR/EC) 20 mg PO DAILY Qty: 30 RF: 0 ondansetron 4 mg tablet,disintegrating 4 mg PO Q6-8H PRN (Reason: nausea and vomiting) Qty: 14 RF: 0 cyclobenzaprine 10 mg tablet 10 mg PO TID PRN (Reason: pain) Qty: 18 RF: 0 naproxen 500 mg tablet 500 mg PO BID PRN (Reason: pain) Qty: 20 RF: 0 lidocaine 4 % adhesive patch,medicated 1 patch topical DAILY PRN (Reason: pain) Qty: 10 RF: 0 cyclobenzaprine 10 mg tablet 10 mg PO TID Qty: 10 RF: 0 naproxen [Naprosyn] 500 mg tablet 500 mg PO BID Qty: 20 RF: 0 doxycycline hyclate 100 mg capsule 100 mg PO BID Qty: 20 RF: 0 Interventions: ED Discharge Assessment Last Done: 04/12/21 09:46 Discharge Date/Time: 04/12/21 09:47
== END 2021-04-12 09:47 | disposition home or self-care (01) ==
PROVIDERS: Emergency Provider Emergency Medicine Emergency Medical Services
DX: R21 Rash and other nonspecific skin eruption (principal)
CPT/HCPCS: 99283

== ENCOUNTER 2021-05-03 06:54 | Emergency (ER) | payer OTHER, SELFPAY ==
[2021-05-03 07:05] VITALS: BP 164/74; PULSE 76; RESP 18; TEMP 36.7; O2SAT 99; BMI 26.6
--- NOTE | 2021-05-03 08:13 | PC.NURSE ---
Pt upset that he has not been seen yet. States if I'm not going to be seen, I'll just go home The pt took his belongings and started walking towards ed exit. Nurse encouraged pt to wait a little bit more and the ed provider will be over to see him. However pt continued to exit the ed.
== END 2021-05-03 08:19 | disposition left against medical advice (07) ==
PROVIDERS: Emergency Provider Emergency Medicine
DX: M54.9 Dorsalgia, unspecified (principal)
CPT/HCPCS: 99281; 99282

== ENCOUNTER 2021-05-04 07:14 | Emergency (ER) | payer OTHER, SELFPAY ==
[2021-05-04 07:21] VITALS: BP 128/74; PULSE 77; RESP 16; TEMP 37.1; O2SAT 98; BMI 25.8
--- NOTE | 2021-05-04 08:29 | ED.BACK ---
HPI - Back Pain/Injury General Chief Complaint: Back Pain/Injury Stated Complaint: PAIN ALL OVER Time Seen by Provider: 05/04/21 08:39 Source: patient Mode of arrival: ambulatory Limitations: no limitations History of Present Illness HPI Narrative: Patient presents to ED for chronic low back pain exacerbation. Patient denies any recent trauma, abdominal pain, flank pain, fever, chills, nausea, vomiting, hematuria, dysuria, testicular pain, penile discharge, penile lesions. Patient requesting muscle relaxer and lidocaine patch for pain relief. Patient will follow-up with PCP. Negative for any headache. denies any chest pain, shortness of breath, dizziness, weakness, or diarrhea. patient denies any urinary or bowel incontinence. MD elicited complaint: back pain Related Data Home Medications Medication Instructions Recorded Confirmed hydroxyzine HCl [Atarax] 100 mg PO NEEDED PRN 08/03/20 08/03/20 Previous Rx's Medication Instructions Recorded hydrocortisone [Anusol-HC] 1 applic UT BEDTIME PRN #30 g 08/13/20 polyethylene glycol 3350 [Miralax] 17 g PO DAILY #119 g 08/13/20 cyclobenzaprine 10 mg PO TID PRN #30 tab 08/15/20 tramadol 50 mg PO Q8H PRN #12 tab 08/15/20 ketorolac 10 mg PO Q6H PRN 5 Days #20 tab 08/17/20 cane #1 ea 09/01/20 cyclobenzaprine 5 mg PO TID PRN #10 tab 09/01/20 naproxen 500 mg PO BID PRN #14 tab 09/01/20 cyclobenzaprine 5 mg PO TID PRN #5 tab 09/08/20 cyclobenzaprine 10 mg PO BEDTIME PRN #3 tab 09/17/20 cyclobenzaprine 10 mg PO TID PRN #20 tab 09/22/20 ketorolac 10 mg PO QID 5 Days #20 tab 09/22/20 cephalexin [Keflex] 500 mg PO QID 7 Days #28 cap 09/26/20 doxycycline monohydrate 100 mg PO BID 7 Days #14 cap 09/26/20 cyclobenzaprine 10 mg PO TID PRN #8 tab 09/29/20 ibuprofen 600 mg PO Q8H PRN #15 tab 09/29/20 lidocaine [Lidoderm] 1 patch TOPICAL DAILY #15 ea 09/29/20 acetaminophen [Tylenol Extra 500 mg PO Q6H PRN #20 tab 10/04/20 Strength] lidocaine [Lidoderm] 1 patch TOPICAL DAILY PRN #30 ea 10/04/20 MDD remove after 12 hours methocarbamol [Robaxin-750] 750 mg PO Q8H PRN #10 tab 10/04/20 naproxen 500 mg PO BID PRN 10 Days #20 tab 10/04/20 ibuprofen 400 mg PO Q6H PRN #20 tab 10/30/20 lidocaine [Lidoderm] 1 patch TOPICAL DAILY PRN #1 ea 10/30/20 omeprazole 40 mg PO DAILY #20 cap 11/04/20 sucralfate [Carafate] 1 g PO BID #30 tab 11/04/20 mupirocin 1 appl TOPICAL BID #15 g 12/04/20 cyclobenzaprine 10 mg PO TID PRN #14 tab 12/07/20 ibuprofen 600 mg PO Q6H PRN #30 tab 12/07/20 lidocaine 1 patch TOPICAL DAILY PRN #10 ea 12/07/20 PNV no.170-iron fum-folic acid 1 tab PO DAILY #30 tab 12/15/20 omeprazole 20 mg PO DAILY #30 cap 12/15/20 cyclobenzaprine 10 mg PO TID PRN #20 tab 12/27/20 lidocaine 1 patch TOPICAL Q24H #15 ea 12/27/20 ondansetron 4 mg PO Q8H PRN #20 tab 01/02/21 naloxone [Narcan] 4 mg INTRANASAL Q3M PRN #2 ea 01/08/21 cyclobenzaprine 10 mg PO TID PRN #10 tab 01/16/21 ketorolac 10 mg PO Q8H PRN #10 tab 01/16/21 ketorolac 10 mg PO Q6H PRN 5 Days #20 tab 01/27/21 ibuprofen 600 mg PO Q6H PRN #20 tab 02/10/21 loperamide [Anti-Diarrheal 2 mg PO Q4H PRN #10 tab 02/10/21 (loperamide)] ondansetron HCl [Zofran] 4 mg PO Q6H PRN #14 tab 02/10/21 ondansetron 4 mg PO Q6-8H PRN #14 tab 02/13/21 pantoprazole [Protonix] 20 mg PO DAILY #30 tab 02/13/21 cyclobenzaprine 10 mg PO TID PRN #18 tab 02/16/21 naproxen 500 mg PO BID PRN #20 tab 02/16/21 lidocaine 1 patch TOPICAL DAILY PRN #10 ea 02/19/21 cyclobenzaprine 10 mg PO TID #10 tab 02/27/21 naproxen [Naprosyn] 500 mg PO BID #20 tab 02/27/21 cyclobenzaprine 5 mg PO TID PRN #10 tab 03/02/21 ibuprofen 600 mg PO Q6H PRN #14 tab 03/02/21 lidocaine 1 patch TOPICAL DAILY PRN #15 ea 03/02/21 oxycodone 5 mg PO Q6H PRN #5 tab 03/02/21 cyclobenzaprine 10 mg PO TID PRN #10 tab 03/28/21 lidocaine [Aspercreme (lidocaine 1 patch TOPICAL BID PRN #10 ea 03/28/21 HCl)] doxycycline hyclate 100 mg PO BID #20 cap 03/31/21 triamcinolone acetonide 1 appl TOPICAL BID #15 g 04/12/21 cyclobenzaprine 10 mg PO TID PRN #15 tab 05/04/21 lidocaine HCl 1 patch TOPICAL BID PRN #30 ea 05/04/21 naproxen 500 mg PO BID PRN #20 tab 05/04/21 Allergies Allergy/AdvReac Type Severity Reaction Status Date / Time Penicillins [PCN] Allergy Mild RASH Verified 03/28/21 05:03 silver AdvReac Intermediate rash Verified 03/28/21 05:03 [From TEGADER[facility] MESH] Review of Systems Review of Systems: Yes all other systems are reviewed and are negative Constitutional: Constitutional: Reports as per HPI and Reports no additional constitutional complaints Eyes: Eyes: Reports as per HPI and Reports no additional eye complaints ENT: Reports system reviewed and no additional complaints, except as documented and Reports as per HPI Cardiovascular: Cardiovascular: Reports as per HPI and Reports no additional cardiovascular complaints Respiratory: Respiratory: Reports as per HPI and Reports no additional respiratory complaints Gastrointestinal: Gastrointestinal: Reports as per HPI and Reports no additional gastrointestinal complaints Genitourinary: Genitourinary: Reports no additional male genitourinary complaints and Reports as per HPI Musculoskeletal: Musculoskeletal: Reports no additional musculoskeletal complaints, Reports as per HPI and Reports back pain Neurologic: Reports system reviewed and no additional complaints, except as documented and Reports as per HPI Psychiatric: Psychiatric: Reports no additional psychiatric complaints and Reports as per HPI [facility] Past Medical History Medical History Anxiety Bipolar 1 disorder Contusion Depression Foot drop, right foot Heart murmur Schizophrenia Surgical History No pertinent past surgical history Social History Social History Alcohol intake: unknown Substance Use Type: Marijuana Advance Directives: Yes Advance Directives Information Provided: No Advance Directives on File: No Physical Exam Vital Signs: Vital Signs: Last Vital Signs Temp 98.7 F 05/04/21 07:21 Pulse 77 05/04/21 07:21 Resp 16 05/04/21 07:21 BP 128/74 05/04/21 07:21 Pulse Ox 98 05/04/21 07:21 Body Mass Index 25.8 Const: General: cooperative, healthy appearing, comfortable, no acute distress, well developed, alert, awake and Physically active Orientation/consciousness: patient oriented x3 HENMT: Other: Negative for rash in ears. Head: Yes normal to inspection, Yes No palpable skull fracture present, Yes normocephalic, Yes atraumatic and No abrasion Ears: hearing grossly normal bilaterally, external ears normal, TM's normal bilaterally and EAC's normal Eyes: General: appearance normal, both eyes and all related structures Neck: Neck: Yes normal visual inspection, Yes full ROM, Yes no lymphadenopathy, Yes no meningeal signs, Yes trachea midline, Yes supple and No tender Chest: Chest palpation & inspection: normal inspection of the chest and normal palpation of entire chest wall Resp: Effort & Inspection: normal respiratory effort and able to speak in complete sentences Auscultation: clear to auscultation bilaterally Cardio: Jugular venous distension: no JVD Heart sounds: S1 normal heart sound present and S2 normal heart sound present GI: Inspection: Yes normal to inspection and No abdominal wall ecchymosis Palpation (GI): Soft to palpation, not firm, nontender, no guarding and not rigid : General: No CVA tenderness and Yes no CVA tenderness Back/Spine/Pelvis: Back: no CVA tenderness, No CVA tenderness and back tenderness ( Lumbar) Skin: General skin exam: no rashes or lesions noted and elasticity normal Neuro: General: patient oriented x3, gait normal, no meningeal signs and CN's II-XI intact bilaterally Cranial nerves: Yes CN's II-XII intact bilaterally Extrem: General: Yes normal to inspection and Yes full ROM Psych: Appearance: grossly normal, well kempt and not disheveled Course Course Course Narrative: patient's lumbar spine tenderness. No need for repeat x-ray. Patient has history of chronic back pain. No new trauma. Reevaluation(s) Reevaluation #1: will discharge with lidocaine patch, NSAIDs, and muscle relaxer. Patient has normal gait. Not suspecting any spinal fracture, cord compression, or spinal epidural abscess. Patient denies any IV drug use. Patient smokes marijuana. not suspecting meningitis Time: 08:33 MDM - Back Pain/Injury MDM Narrative Medical decision making narrative: Chronic back pain. Discharge Plan Discharge Clinical Impression: Lumbar radiculopathy Patient Disposition: Home, Self-Care Instructions: Lumbar Radiculopathy (ED) Additional Instructions: return to the ED immediately for any urinary / bowel incontinence, nausea, vomiting, abdominal pain, flank pain, fever, chills, dysuria, hematuria, testicular pain, penile pain, penile lesions, Paralysis of lower extremities or any other concerning symptoms. please follow-up with your PCP Prescriptions: New naproxen 500 mg tablet 500 mg PO BID PRN (Reason: pain) Qty: 20 RF: 0 cyclobenzaprine 10 mg tablet 10 mg PO TID PRN (Reason: pain) Qty: 15 RF: 0 lidocaine HCl 4 % adhesive patch,medicated 1 patch topical BID PRN (Reason: pain) Qty: 30 RF: 0 No Action ketorolac 10 mg tablet 10 mg PO Q6H PRN (Reason: pain) 5 Days Qty: 20 RF: 0 naproxen 500 mg tablet 500 mg PO BID PRN (Reason: pain) Qty: 14 RF: 0 cyclobenzaprine 5 mg tablet 5 mg PO TID PRN (Reason: muscle spasm) Qty: 10 RF: 0 (DME) cane Device See Rx Instructions .ROUTE .MEDSUPPLY Qty: 1 RF: 0 cyclobenzaprine 10 mg tablet 10 mg PO BEDTIME PRN (Reason: muscle spasm) Qty: 3 RF: 0 doxycycline monohydrate 100 mg capsule 100 mg PO BID 7 Days Qty: 14 RF: 0 cephalexin [Keflex] 500 mg capsule 500 mg PO QID 7 Days Qty: 28 RF: 0 lidocaine [Lidoderm] 5 % adhesive patch,medicated 1 patch topical DAILY Qty: 15 RF: 0 ibuprofen 600 mg tablet 600 mg PO Q8H PRN (Reason: pain) Qty: 15 RF: 0 cyclobenzaprine 10 mg tablet 10 mg PO TID PRN (Reason: muscle spasm) Qty: 8 RF: 0 lidocaine [Lidoderm] 5 % adhesive patch,medicated 1 patch topical DAILY PRN (Reason: pain) Qty: 1 RF: 0 ibuprofen 400 mg tablet 400 mg PO Q6H PRN (Reason: pain) Qty: 20 RF: 0 omeprazole 40 mg capsule,delayed release(DR/EC) 40 mg PO DAILY Qty: 20 RF: 0 sucralfate [Carafate] 1 gram tablet 1 g PO BID Qty: 30 RF: 0 mupirocin 2 % ointment 1 appl topical BID Qty: 15 RF: 0 omeprazole 20 mg capsule,delayed release(DR/EC) 20 mg PO DAILY Qty: 30 RF: 0 PNV no.170-iron fum-folic acid 27 mg iron- 1 mg tablet 1 tab PO DAILY Qty: 30 RF: 0 cyclobenzaprine 10 mg tablet 10 mg PO TID PRN (Reason: muscle pain or spasm) Qty: 20 RF: 0 lidocaine 5 % adhesive patch,medicated 1 patch topical Q24H Qty: 15 RF: 0 ondansetron 4 mg tablet,disintegrating 4 mg PO Q8H PRN (Reason: nausea and vomiting) Qty: 20 RF: 0 Narcan 4 mg/actuation spray,non-aerosol 4 mg intranasal Q3M PRN (Reason: opioid overdose) Qty: 2 RF: 0 ketorolac 10 mg tablet 10 mg PO Q6H PRN (Reason: pain) 5 Days Qty: 20 RF: 0 ondansetron HCl [Zofran] 4 mg tablet 4 mg PO Q6H PRN (Reason: nausea and vomiting) Qty: 14 RF: 0 loperamide [Anti-Diarrheal (loperamide)] 2 mg tablet 2 mg PO Q4H PRN (Reason: loose stool) Qty: 10 RF: 0 ibuprofen 600 mg tablet 600 mg PO Q6H PRN (Reason: fever or pain) Qty: 20 RF: 0 lidocaine 5 % adhesive patch,medicated 1 patch topical DAILY PRN (Reason: back pain) Qty: 15 RF: 0 oxycodone 5 mg tablet 5 mg PO Q6H PRN (Reason: pain) Qty: 5 RF: 0 ibuprofen 600 mg tablet 600 mg PO Q6H PRN (Reason: pain) Qty: 14 RF: 0 cyclobenzaprine 5 mg tablet 5 mg PO TID PRN (Reason: muscle spasm) Qty: 10 RF: 0 cyclobenzaprine 10 mg tablet 10 mg PO TID PRN (Reason: muscle spasm) Qty: 10 RF: 0 lidocaine [Aspercreme (lidocaine HCl)] 4 % adhesive patch,medicated 1 patch topical BID PRN (Reason: pain) Qty: 10 RF: 0 Atarax 100 mg Tablet 100 mg PO NEEDED PRN (Reason: Anxiety) RF: 0 hydrocortisone [Anusol-HC] 2.5 % cream with perineal applicator 1 applic UT BEDTIME PRN (Reason: pain) Qty: 30 RF: 0 polyethylene glycol 3350 [Miralax] 17 gram/dose powder 17 g PO DAILY Qty: 119 RF: 0 cyclobenzaprine 10 mg tablet 10 mg PO TID PRN (Reason: muscle spasm) Qty: 30 RF: 0 tramadol 50 mg tablet 50 mg PO Q8H PRN (Reason: pain) Qty: 12 RF: 0 cyclobenzaprine 5 mg tablet 5 mg PO TID PRN (Reason: muscle spasm) Qty: 5 RF: 0 cyclobenzaprine 10 mg tablet 10 mg PO TID PRN (Reason: muscle spasm) Qty: 20 RF: 0 ketorolac 10 mg tablet 10 mg PO QID 5 Days Qty: 20 RF: 0 methocarbamol [Robaxin-750] 750 mg tablet 750 mg PO Q8H PRN (Reason: pain, severe) Qty: 10 RF: 0 acetaminophen [Tylenol Extra Strength] 500 mg tablet 500 mg PO Q6H PRN (Reason: pain or fever) Qty: 20 RF: 0 lidocaine [Lidoderm] 5 % adhesive patch,medicated 1 patch topical DAILY MDD remove after 12 hours PRN (Reason: pain) Qty: 30 RF: 0 naproxen 500 mg tablet 500 mg PO BID PRN (Reason: pain) 10 Days Qty: 20 RF: 0 cyclobenzaprine 10 mg tablet 10 mg PO TID PRN (Reason: muscle spasm) Qty: 14 RF: 0 lidocaine 4 % adhesive patch,medicated 1 patch topical DAILY PRN (Reason: pain) Qty: 10 RF: 0 ibuprofen 600 mg tablet 600 mg PO Q6H PRN (Reason: pain) Qty: 30 RF: 0 ketorolac 10 mg tablet 10 mg PO Q8H PRN (Reason: pain) Qty: 10 RF: 0 cyclobenzaprine 10 mg tablet 10 mg PO TID PRN (Reason: muscle spasm) Qty: 10 RF: 0 pantoprazole [Protonix] 20 mg tablet,delayed release (DR/EC) 20 mg PO DAILY Qty: 30 RF: 0 ondansetron 4 mg tablet,disintegrating 4 mg PO Q6-8H PRN (Reason: nausea and vomiting) Qty: 14 RF: 0 cyclobenzaprine 10 mg tablet 10 mg PO TID PRN (Reason: pain) Qty: 18 RF: 0 naproxen 500 mg tablet 500 mg PO BID PRN (Reason: pain) Qty: 20 RF: 0 lidocaine 4 % adhesive patch,medicated 1 patch topical DAILY PRN (Reason: pain) Qty: 10 RF: 0 cyclobenzaprine 10 mg tablet 10 mg PO TID Qty: 10 RF: 0 naproxen [Naprosyn] 500 mg tablet 500 mg PO BID Qty: 20 RF: 0 doxycycline hyclate 100 mg capsule 100 mg PO BID Qty: 20 RF: 0 triamcinolone acetonide 0.025 % ointment 1 appl topical BID Qty: 15 RF: 0 Interventions: ED Discharge Assessment Last Done: 05/04/21 08:46 Discharge Date/Time: 05/04/21 08:46 Print Language: Persian
--- NOTE | 2021-05-04 08:41 | ED.ABDPAIN ---
HPI - Abdominal Pain General Chief Complaint: Back Pain/Injury Stated Complaint: PAIN ALL OVER Time Seen by Provider: 05/04/21 08:39 Source: patient Mode of arrival: ambulatory Limitations: no limitations Related Data Home Medications Medication Instructions Recorded Confirmed hydroxyzine HCl 100 mg tablet 100 mg PO NEEDED PRN 08/03/20 08/03/20 Previous Rx's Medication Instructions Recorded hydrocortisone 2.5 % topical cream 1 applic [place] BEDTIME PRN #30 g 08/13/20 with perineal applicator (Anusol-HC) polyethylene glycol 3350 17 17 g PO DAILY #119 g 08/13/20 gram/dose oral powder (Miralax) cyclobenzaprine 10 mg tablet 10 mg PO TID PRN #30 tab 08/15/20 tramadol 50 mg tablet 50 mg PO Q8H PRN #12 tab 08/15/20 ketorolac 10 mg tablet 10 mg PO Q6H PRN 5 Days #20 tab 08/17/20 cane #1 ea 09/01/20 cyclobenzaprine 5 mg tablet 5 mg PO TID PRN #10 tab 09/01/20 naproxen 500 mg tablet 500 mg PO BID PRN #14 tab 09/01/20 cyclobenzaprine 5 mg tablet 5 mg PO TID PRN #5 tab 09/08/20 cyclobenzaprine 10 mg tablet 10 mg PO BEDTIME PRN #3 tab 09/17/20 cyclobenzaprine 10 mg tablet 10 mg PO TID PRN #20 tab 09/22/20 ketorolac 10 mg tablet 10 mg PO QID 5 Days #20 tab 09/22/20 cephalexin 500 mg capsule (Keflex) 500 mg PO QID 7 Days #28 cap 09/26/20 doxycycline monohydrate 100 mg 100 mg PO BID 7 Days #14 cap 09/26/20 capsule cyclobenzaprine 10 mg tablet 10 mg PO TID PRN #8 tab 09/29/20 ibuprofen 600 mg tablet 600 mg PO Q8H PRN #15 tab 09/29/20 lidocaine 5 % topical patch 1 patch TOPICAL DAILY #15 ea 09/29/20 (Lidoderm) acetaminophen 500 mg tablet 500 mg PO Q6H PRN #20 tab 10/04/20 (Tylenol Extra Strength) lidocaine 5 % topical patch 1 patch TOPICAL DAILY PRN #30 ea 10/04/20 (Lidoderm) MDD remove after 12 hours methocarbamol 750 mg tablet 750 mg PO Q8H PRN #10 tab 10/04/20 (Robaxin-750) naproxen 500 mg tablet 500 mg PO BID PRN 10 Days #20 tab 10/04/20 ibuprofen 400 mg tablet 400 mg PO Q6H PRN #20 tab 10/30/20 lidocaine 5 % topical patch 1 patch TOPICAL DAILY PRN #1 ea 10/30/20 (Lidoderm) omeprazole 40 mg capsule,delayed 40 mg PO DAILY #20 cap 11/04/20 release sucralfate 1 gram tablet (Carafate) 1 g PO BID #30 tab 11/04/20 mupirocin 2 % topical ointment 1 appl TOPICAL BID #15 g 12/04/20 cyclobenzaprine 10 mg tablet 10 mg PO TID PRN #14 tab 12/07/20 ibuprofen 600 mg tablet 600 mg PO Q6H PRN #30 tab 12/07/20 lidocaine 4 % topical patch 1 patch TOPICAL DAILY PRN #10 ea 12/07/20 omeprazole 20 mg capsule,delayed 20 mg PO DAILY #30 cap 12/15/20 release vitamins no.170-iron 1 tab PO DAILY #30 tab 12/15/20 fumarate 27 mg-folic acid 1 mg tablet cyclobenzaprine 10 mg tablet 10 mg PO TID PRN #20 tab 12/27/20 lidocaine 5 % topical patch 1 patch TOPICAL Q24H #15 ea 12/27/20 ondansetron 4 mg disintegrating 4 mg PO Q8H PRN #20 tab 01/02/21 tablet naloxone 4 mg/actuation nasal 4 mg INTRANASAL Q3M PRN #2 ea 01/08/21 spray (Narcan) cyclobenzaprine 10 mg tablet 10 mg PO TID PRN #10 tab 01/16/21 ketorolac 10 mg tablet 10 mg PO Q8H PRN #10 tab 01/16/21 ketorolac 10 mg tablet 10 mg PO Q6H PRN 5 Days #20 tab 01/27/21 ibuprofen 600 mg tablet 600 mg PO Q6H PRN #20 tab 02/10/21 loperamide 2 mg tablet 2 mg PO Q4H PRN #10 tab 02/10/21 (Anti-Diarrheal (loperamide)) ondansetron HCl 4 mg tablet 4 mg PO Q6H PRN #14 tab 02/10/21 (Zofran) ondansetron 4 mg disintegrating 4 mg PO Q6-8H PRN #14 tab 02/13/21 tablet pantoprazole 20 mg tablet,delayed 20 mg PO DAILY #30 tab 02/13/21 release (Protonix) cyclobenzaprine 10 mg tablet 10 mg PO TID PRN #18 tab 02/16/21 naproxen 500 mg tablet 500 mg PO BID PRN #20 tab 02/16/21 lidocaine 4 % topical patch 1 patch TOPICAL DAILY PRN #10 ea 02/19/21 cyclobenzaprine 10 mg tablet 10 mg PO TID #10 tab 02/27/21 naproxen 500 mg tablet (Naprosyn) 500 mg PO BID #20 tab 02/27/21 cyclobenzaprine 5 mg tablet 5 mg PO TID PRN #10 tab 03/02/21 ibuprofen 600 mg tablet 600 mg PO Q6H PRN #14 tab 03/02/21 lidocaine 5 % topical patch 1 patch TOPICAL DAILY PRN #15 ea 03/02/21 oxycodone 5 mg tablet 5 mg PO Q6H PRN #5 tab 03/02/21 cyclobenzaprine 10 mg tablet 10 mg PO TID PRN #10 tab 03/28/21 lidocaine 4 % topical patch 1 patch TOPICAL BID PRN #10 ea 03/28/21 (Aspercreme (lidocaine)) doxycycline hyclate 100 mg capsule 100 mg PO BID #20 cap 03/31/21 triamcinolone acetonide 0.025 % 1 appl TOPICAL BID #15 g 04/12/21 topical ointment cyclobenzaprine 10 mg tablet 10 mg PO TID PRN #15 tab 05/04/21 lidocaine HCl 4 % topical patch 1 patch TOPICAL BID PRN #30 ea 05/04/21 naproxen 500 mg tablet 500 mg PO BID PRN #20 tab 05/04/21 Allergies Allergy/AdvReac Type Severity Reaction Status Date / Time Penicillins [PCN] Allergy Mild RASH Verified 03/28/21 05:03 silver AdvReac Intermediate rash Verified 03/28/21 05:03 [From TEGADERM AG MESH] Physical Exam Vital Signs: Vital Signs: Last Vital Signs Temp 98.7 F 05/04/21 07:21 Pulse 77 05/04/21 07:21 Resp 16 05/04/21 07:21 BP 128/74 05/04/21 07:21 Pulse Ox 98 05/04/21 07:21 Body Mass Index 25.8 Discharge Plan Discharge Clinical Impression: Lumbar radiculopathy Patient Disposition: Home, Self-Care Instructions: Lumbar Radiculopathy (ED) Additional Instructions: return to the ED immediately for any urinary / bowel incontinence, nausea, vomiting, abdominal pain, flank pain, fever, chills, dysuria, hematuria, testicular pain, penile pain, penile lesions, Paralysis of lower extremities or any other concerning symptoms. please follow-up with your PCP Prescriptions: New naproxen 500 mg tablet 500 mg PO BID PRN (Reason: pain) Qty: 20 RF: 0 cyclobenzaprine 10 mg tablet 10 mg PO TID PRN (Reason: pain) Qty: 15 RF: 0 lidocaine HCl 4 % adhesive patch,medicated 1 patch topical BID PRN (Reason: pain) Qty: 30 RF: 0 No Action ketorolac 10 mg tablet 10 mg PO Q6H PRN (Reason: pain) 5 Days Qty: 20 RF: 0 naproxen 500 mg tablet 500 mg PO BID PRN (Reason: pain) Qty: 14 RF: 0 cyclobenzaprine 5 mg tablet 5 mg PO TID PRN (Reason: muscle spasm) Qty: 10 RF: 0 (DME) cane Device See Rx Instructions .ROUTE .MEDSUPPLY Qty: 1 RF: 0 cyclobenzaprine 10 mg tablet 10 mg PO BEDTIME PRN (Reason: muscle spasm) Qty: 3 RF: 0 doxycycline monohydrate 100 mg capsule 100 mg PO BID 7 Days Qty: 14 RF: 0 cephalexin [Keflex] 500 mg capsule 500 mg PO QID 7 Days Qty: 28 RF: 0 lidocaine [Lidoderm] 5 % adhesive patch,medicated 1 patch topical DAILY Qty: 15 RF: 0 ibuprofen 600 mg tablet 600 mg PO Q8H PRN (Reason: pain) Qty: 15 RF: 0 cyclobenzaprine 10 mg tablet 10 mg PO TID PRN (Reason: muscle spasm) Qty: 8 RF: 0 lidocaine [Lidoderm] 5 % adhesive patch,medicated 1 patch topical DAILY PRN (Reason: pain) Qty: 1 RF: 0 ibuprofen 400 mg tablet 400 mg PO Q6H PRN (Reason: pain) Qty: 20 RF: 0 omeprazole 40 mg capsule,delayed release(DR/EC) 40 mg PO DAILY Qty: 20 RF: 0 sucralfate [Carafate] 1 gram tablet 1 g PO BID Qty: 30 RF: 0 mupirocin 2 % ointment 1 appl topical BID Qty: 15 RF: 0 omeprazole 20 mg capsule,delayed release(DR/EC) 20 mg PO DAILY Qty: 30 RF: 0 PNV no.170-iron fum-folic acid 27 mg iron- 1 mg tablet 1 tab PO DAILY Qty: 30 RF: 0 cyclobenzaprine 10 mg tablet 10 mg PO TID PRN (Reason: muscle pain or spasm) Qty: 20 RF: 0 lidocaine 5 % adhesive patch,medicated 1 patch topical Q24H Qty: 15 RF: 0 ondansetron 4 mg tablet,disintegrating 4 mg PO Q8H PRN (Reason: nausea and vomiting) Qty: 20 RF: 0 Narcan 4 mg/actuation spray,non-aerosol 4 mg intranasal Q3M PRN (Reason: opioid overdose) Qty: 2 RF: 0 ketorolac 10 mg tablet 10 mg PO Q6H PRN (Reason: pain) 5 Days Qty: 20 RF: 0 ondansetron HCl [Zofran] 4 mg tablet 4 mg PO Q6H PRN (Reason: nausea and vomiting) Qty: 14 RF: 0 loperamide [Anti-Diarrheal (loperamide)] 2 mg tablet 2 mg PO Q4H PRN (Reason: loose stool) Qty: 10 RF: 0 ibuprofen 600 mg tablet 600 mg PO Q6H PRN (Reason: fever or pain) Qty: 20 RF: 0 lidocaine 5 % adhesive patch,medicated 1 patch topical DAILY PRN (Reason: back pain) Qty: 15 RF: 0 oxycodone 5 mg tablet 5 mg PO Q6H PRN (Reason: pain) Qty: 5 RF: 0 ibuprofen 600 mg tablet 600 mg PO Q6H PRN (Reason: pain) Qty: 14 RF: 0 cyclobenzaprine 5 mg tablet 5 mg PO TID PRN (Reason: muscle spasm) Qty: 10 RF: 0 cyclobenzaprine 10 mg tablet 10 mg PO TID PRN (Reason: muscle spasm) Qty: 10 RF: 0 lidocaine [Aspercreme (lidocaine HCl)] 4 % adhesive patch,medicated 1 patch topical BID PRN (Reason: pain) Qty: 10 RF: 0 Atarax 100 mg Tablet 100 mg PO NEEDED PRN (Reason: Anxiety) RF: 0 hydrocortisone [Anusol-HC] 2.5 % cream with perineal applicator 1 applic AK BEDTIME PRN (Reason: pain) Qty: 30 RF: 0 polyethylene glycol 3350 [Miralax] 17 gram/dose powder 17 g PO DAILY Qty: 119 RF: 0 cyclobenzaprine 10 mg tablet 10 mg PO TID PRN (Reason: muscle spasm) Qty: 30 RF: 0 tramadol 50 mg tablet 50 mg PO Q8H PRN (Reason: pain) Qty: 12 RF: 0 cyclobenzaprine 5 mg tablet 5 mg PO TID PRN (Reason: muscle spasm) Qty: 5 RF: 0 cyclobenzaprine 10 mg tablet 10 mg PO TID PRN (Reason: muscle spasm) Qty: 20 RF: 0 ketorolac 10 mg tablet 10 mg PO QID 5 Days Qty: 20 RF: 0 methocarbamol [Robaxin-750] 750 mg tablet 750 mg PO Q8H PRN (Reason: pain, severe) Qty: 10 RF: 0 acetaminophen [Tylenol Extra Strength] 500 mg tablet 500 mg PO Q6H PRN (Reason: pain or fever) Qty: 20 RF: 0 lidocaine [Lidoderm] 5 % adhesive patch,medicated 1 patch topical DAILY MDD remove after 12 hours PRN (Reason: pain) Qty: 30 RF: 0 naproxen 500 mg tablet 500 mg PO BID PRN (Reason: pain) 10 Days Qty: 20 RF: 0 cyclobenzaprine 10 mg tablet 10 mg PO TID PRN (Reason: muscle spasm) Qty: 14 RF: 0 lidocaine 4 % adhesive patch,medicated 1 patch topical DAILY PRN (Reason: pain) Qty: 10 RF: 0 ibuprofen 600 mg tablet 600 mg PO Q6H PRN (Reason: pain) Qty: 30 RF: 0 ketorolac 10 mg tablet 10 mg PO Q8H PRN (Reason: pain) Qty: 10 RF: 0 cyclobenzaprine 10 mg tablet 10 mg PO TID PRN (Reason: muscle spasm) Qty: 10 RF: 0 pantoprazole [Protonix] 20 mg tablet,delayed release (DR/EC) 20 mg PO DAILY Qty: 30 RF: 0 ondansetron 4 mg tablet,disintegrating 4 mg PO Q6-8H PRN (Reason: nausea and vomiting) Qty: 14 RF: 0 cyclobenzaprine 10 mg tablet 10 mg PO TID PRN (Reason: pain) Qty: 18 RF: 0 naproxen 500 mg tablet 500 mg PO BID PRN (Reason: pain) Qty: 20 RF: 0 lidocaine 4 % adhesive patch,medicated 1 patch topical DAILY PRN (Reason: pain) Qty: 10 RF: 0 cyclobenzaprine 10 mg tablet 10 mg PO TID Qty: 10 RF: 0 naproxen [Naprosyn] 500 mg tablet 500 mg PO BID Qty: 20 RF: 0 doxycycline hyclate 100 mg capsule 100 mg PO BID Qty: 20 RF: 0 triamcinolone acetonide 0.025 % ointment 1 appl topical BID Qty: 15 RF: 0 Interventions: ED Discharge Assessment Last Done: 05/04/21 08:46 Discharge Date/Time: 05/04/21 08:46 Print Language: Yi [facility] Past Medical History Medical History Anxiety Bipolar 1 disorder Contusion Depression Foot drop, right foot Heart murmur Schizophrenia Surgical History No pertinent past surgical history Social History Social History Alcohol intake: unknown Substance Use Type: Marijuana Advance Directives: No Advance Directives Information Provided: No
== END 2021-05-04 08:46 | disposition home or self-care (01) ==
PROVIDERS: Emergency Provider Emergency Medicine
DX: M54.16 Radiculopathy, lumbar region (principal)
CPT/HCPCS: 99283

== ENCOUNTER 2021-05-10 07:07 | Emergency (ER) | payer OTHER, SELFPAY | END 2021-05-10 08:16 | disposition left against medical advice (07) | PROVIDERS: Emergency Provider Emergency Medicine | DX: R21 Rash and other nonspecific skin eruption (principal) ==

== ENCOUNTER 2021-05-19 07:42 | Emergency (ER) | payer OTHER, SELFPAY ==
[2021-05-19 07:59] VITALS: BP 122/77; PULSE 71; RESP 18; TEMP 37; O2SAT 98; BMI 22.3
== END 2021-05-19 09:03 | disposition left against medical advice (07) ==
PROVIDERS: Emergency Provider Emergency Medicine; PCP Physician Assistant Medical
DX: S99.911A Unspecified injury of right ankle, initial encounter (principal); X58.XXXA Exposure to other specified factors, initial encounter; Y93.9 Activity, unspecified; Y92.9 Unspecified place or not applicable; Y99.9 Unspecified external cause status
CPT/HCPCS: 99281; 99282

== ENCOUNTER 2021-05-20 06:02 | Emergency (ER) | payer OTHER, SELFPAY ==
--- NOTE | ~2021-05-20 | XR_ITS ---
EXAMINATION: XR FOOT, RIGHT CLINICAL INFORMATION: Injury base of fifth digit with tenderness. COMPARISON: None TECHNIQUE: AP, lateral, and oblique views of the right foot. FINDINGS: There is no visible acute fracture, dislocation or subluxation. Especially there is no fracture involving the fifth metatarsal. The ankle mortise and subtalar joints are normal. The soft tissues are normal. XR/XR foot RT 2V IMPRESSION: Unremarkable right foot exam.
[2021-05-20 07:06] VITALS: BP 118/72; PULSE 79; RESP 16; TEMP 36.7; O2SAT 98; BMI 25.0
--- NOTE | 2021-05-20 07:32 | ED.LOWEXIN ---
HPI - Extremity Injury (Lower) General Chief Complaint: Extremity Injury, Lower Stated Complaint: Ankle pain Time Seen by Provider: 05/20/21 07:32 Source: patient Mode of arrival: ambulatory Limitations: no limitations History of Present Illness HPI Narrative: sprained his ankle 2 days ago. going down stairs he twisted his ankle complaint: ankle injury Onset (ago): day(s) Place: home Severity: mild Relieving factors: nothing Exacerbating factors: weight bearing Related Data Home Medications Medication Instructions Recorded Confirmed hydroxyzine HCl [Atarax] 100 mg PO NEEDED PRN 08/03/20 08/03/20 Previous Rx's Medication Instructions Recorded hydrocortisone [Anusol-HC] 1 applic AR BEDTIME PRN #30 g 08/13/20 polyethylene glycol 3350 [Miralax] 17 g PO DAILY #119 g 08/13/20 cyclobenzaprine 10 mg PO TID PRN #30 tab 08/15/20 tramadol 50 mg PO Q8H PRN #12 tab 08/15/20 ketorolac 10 mg PO Q6H PRN 5 Days #20 tab 08/17/20 cane #1 ea 09/01/20 cyclobenzaprine 5 mg PO TID PRN #10 tab 09/01/20 naproxen 500 mg PO BID PRN #14 tab 09/01/20 cyclobenzaprine 5 mg PO TID PRN #5 tab 09/08/20 cyclobenzaprine 10 mg PO BEDTIME PRN #3 tab 09/17/20 cyclobenzaprine 10 mg PO TID PRN #20 tab 09/22/20 ketorolac 10 mg PO QID 5 Days #20 tab 09/22/20 cephalexin [Keflex] 500 mg PO QID 7 Days #28 cap 09/26/20 doxycycline monohydrate 100 mg PO BID 7 Days #14 cap 09/26/20 cyclobenzaprine 10 mg PO TID PRN #8 tab 09/29/20 ibuprofen 600 mg PO Q8H PRN #15 tab 09/29/20 lidocaine [Lidoderm] 1 patch TOPICAL DAILY #15 ea 09/29/20 acetaminophen [Tylenol Extra 500 mg PO Q6H PRN #20 tab 10/04/20 Strength] lidocaine [Lidoderm] 1 patch TOPICAL DAILY PRN #30 ea 10/04/20 MDD remove after 12 hours methocarbamol [Robaxin-750] 750 mg PO Q8H PRN #10 tab 10/04/20 naproxen 500 mg PO BID PRN 10 Days #20 tab 10/04/20 ibuprofen 400 mg PO Q6H PRN #20 tab 10/30/20 lidocaine [Lidoderm] 1 patch TOPICAL DAILY PRN #1 ea 10/30/20 omeprazole 40 mg PO DAILY #20 cap 11/04/20 sucralfate [Carafate] 1 g PO BID #30 tab 11/04/20 mupirocin 1 appl TOPICAL BID #15 g 12/04/20 cyclobenzaprine 10 mg PO TID PRN #14 tab 12/07/20 ibuprofen 600 mg PO Q6H PRN #30 tab 12/07/20 lidocaine 1 patch TOPICAL DAILY PRN #10 ea 12/07/20 PNV no.170-iron fum-folic acid 1 tab PO DAILY #30 tab 12/15/20 omeprazole 20 mg PO DAILY #30 cap 12/15/20 cyclobenzaprine 10 mg PO TID PRN #20 tab 12/27/20 lidocaine 1 patch TOPICAL Q24H #15 ea 12/27/20 ondansetron 4 mg PO Q8H PRN #20 tab 01/02/21 naloxone [Narcan] 4 mg INTRANASAL Q3M PRN #2 ea 01/08/21 cyclobenzaprine 10 mg PO TID PRN #10 tab 01/16/21 ketorolac 10 mg PO Q8H PRN #10 tab 01/16/21 ketorolac 10 mg PO Q6H PRN 5 Days #20 tab 01/27/21 ibuprofen 600 mg PO Q6H PRN #20 tab 02/10/21 loperamide [Anti-Diarrheal 2 mg PO Q4H PRN #10 tab 02/10/21 (loperamide)] ondansetron HCl [Zofran] 4 mg PO Q6H PRN #14 tab 02/10/21 ondansetron 4 mg PO Q6-8H PRN #14 tab 02/13/21 pantoprazole [Protonix] 20 mg PO DAILY #30 tab 02/13/21 cyclobenzaprine 10 mg PO TID PRN #18 tab 02/16/21 naproxen 500 mg PO BID PRN #20 tab 02/16/21 lidocaine 1 patch TOPICAL DAILY PRN #10 ea 02/19/21 cyclobenzaprine 10 mg PO TID #10 tab 02/27/21 naproxen [Naprosyn] 500 mg PO BID #20 tab 02/27/21 cyclobenzaprine 5 mg PO TID PRN #10 tab 03/02/21 ibuprofen 600 mg PO Q6H PRN #14 tab 03/02/21 lidocaine 1 patch TOPICAL DAILY PRN #15 ea 03/02/21 oxycodone 5 mg PO Q6H PRN #5 tab 03/02/21 cyclobenzaprine 10 mg PO TID PRN #10 tab 03/28/21 lidocaine [Aspercreme (lidocaine 1 patch TOPICAL BID PRN #10 ea 03/28/21 HCl)] doxycycline hyclate 100 mg PO BID #20 cap 03/31/21 triamcinolone acetonide 1 appl TOPICAL BID #15 g 04/12/21 cyclobenzaprine 10 mg PO TID PRN #15 tab 05/04/21 lidocaine HCl 1 patch TOPICAL BID PRN #30 ea 05/04/21 naproxen 500 mg PO BID PRN #20 tab 05/04/21 Allergies Allergy/AdvReac Type Severity Reaction Status Date / Time Penicillins [PCN] Allergy Mild RASH Verified 03/28/21 05:03 silver AdvReac Intermediate rash Verified 03/28/21 05:03 [From TEGADERM AG MESH] Review of Systems Constitutional: Constitutional: Reports no additional constitutional complaints Eyes: Eyes: Reports no additional eye complaints ENT: Denies dizziness Cardiovascular: Cardiovascular: Reports no additional cardiovascular complaints Respiratory: Respiratory: Reports as per HPI Gastrointestinal: Gastrointestinal: Reports no additional gastrointestinal complaints Musculoskeletal: Musculoskeletal: Reports no additional musculoskeletal complaints Integumentary/Breasts: Skin/Breast: Denies rash Neurologic: Reports system reviewed and no additional complaints, except as documented, Denies dizziness and Denies Sensory deficit (Neuro) Psychiatric: Psychiatric: Denies anxiety PMFSH Past Medical History Medical History Anxiety Bipolar 1 disorder Contusion Depression Foot drop, right foot Heart murmur Schizophrenia Surgical History No pertinent past surgical history Social History Social History Alcohol intake: unknown Substance Use Type: Marijuana Advance Directives: No Physical Exam Vital Signs: Vital Signs: Last Vital Signs Temp 98.0 F 05/20/21 07:06 Pulse 79 05/20/21 07:06 Resp 16 05/20/21 07:06 BP 118/72 05/20/21 07:06 Pulse Ox 98 05/20/21 07:06 Body Mass Index 25.0 Const: General: healthy appearing Nutritional Appearance: average body habitus Orientation/consciousness: oriented to person and patient oriented x3 Limitations: no limitations HENMT: Head: Yes normal to inspection Ears: external ears normal General nose exam: Normal external nose present Mouth: Normal oral and palatal mucosa present and oropharynx normal Throat: Yes posterior oropharynx normal Eyes: General: appearance normal, both eyes and all related structures Neck: Other: supple Neck: Yes normal visual inspection Chest: Chest palpation & inspection: normal inspection of the chest Resp: Auscultation: clear to auscultation bilaterally Cardio: Jugular venous distension: no JVD Rate: regular rate Rhythm: regular rhythm Heart sounds: S1 normal heart sound present and S2 normal heart sound present GI: Inspection: Yes normal to inspection Palpation (GI): Soft to palpation, nontender and No hepatosplenomegaly present Auscultation: normal bowel sounds : General: Yes no CVA tenderness Back/Spine/Pelvis: Back: no CVA tenderness Skin: General skin exam: no rashes or lesions noted Neuro: General: oriented to person and patient oriented x3 Cranial nerves: Yes CN's II-XII intact bilaterally Motor exam (neuro): 5/5 motor strength present throughout Sensory Exam: No Sensory deficit (Neuro) Extrem: Other: right foot base of the 5th swelling and mild tenderness Psych: Appearance: grossly normal Course Course Course Narrative: patient with foot contusion will dc on ice and tylenol MDM - Extremity Injury (Lower) Imaging Data right foot: Radiologist's impression: IMPRESSION: Unremarkable right foot exam. Discharge Plan Discharge Clinical Impression: Contusion of foot Qualifiers: Encounter type: initial encounter Laterality: right Qualified Code(s): S90.31XA - Contusion of right foot, initial encounter Patient Disposition: Home, Self-Care Instructions: Foot Contusion (ED) Additional Instructions: tylenol 4 times a day, ice 20 minutes off and on Prescriptions: No Action ketorolac 10 mg tablet 10 mg PO Q6H PRN (Reason: pain) 5 Days Qty: 20 RF: 0 naproxen 500 mg tablet 500 mg PO BID PRN (Reason: pain) Qty: 14 RF: 0 cyclobenzaprine 5 mg tablet 5 mg PO TID PRN (Reason: muscle spasm) Qty: 10 RF: 0 (DME) cane Device See Rx Instructions .ROUTE .MEDSUPPLY Qty: 1 RF: 0 cyclobenzaprine 10 mg tablet 10 mg PO BEDTIME PRN (Reason: muscle spasm) Qty: 3 RF: 0 doxycycline monohydrate 100 mg capsule 100 mg PO BID 7 Days Qty: 14 RF: 0 cephalexin [Keflex] 500 mg capsule 500 mg PO QID 7 Days Qty: 28 RF: 0 lidocaine [Lidoderm] 5 % adhesive patch,medicated 1 patch topical DAILY Qty: 15 RF: 0 ibuprofen 600 mg tablet 600 mg PO Q8H PRN (Reason: pain) Qty: 15 RF: 0 cyclobenzaprine 10 mg tablet 10 mg PO TID PRN (Reason: muscle spasm) Qty: 8 RF: 0 lidocaine [Lidoderm] 5 % adhesive patch,medicated 1 patch topical DAILY PRN (Reason: pain) Qty: 1 RF: 0 ibuprofen 400 mg tablet 400 mg PO Q6H PRN (Reason: pain) Qty: 20 RF: 0 omeprazole 40 mg capsule,delayed release(DR/EC) 40 mg PO DAILY Qty: 20 RF: 0 sucralfate [Carafate] 1 gram tablet 1 g PO BID Qty: 30 RF: 0 mupirocin 2 % ointment 1 appl topical BID Qty: 15 RF: 0 omeprazole 20 mg capsule,delayed release(DR/EC) 20 mg PO DAILY Qty: 30 RF: 0 PNV no.170-iron fum-folic acid 27 mg iron- 1 mg tablet 1 tab PO DAILY Qty: 30 RF: 0 cyclobenzaprine 10 mg tablet 10 mg PO TID PRN (Reason: muscle pain or spasm) Qty: 20 RF: 0 lidocaine 5 % adhesive patch,medicated 1 patch topical Q24H Qty: 15 RF: 0 ondansetron 4 mg tablet,disintegrating 4 mg PO Q8H PRN (Reason: nausea and vomiting) Qty: 20 RF: 0 Narcan 4 mg/actuation spray,non-aerosol 4 mg intranasal Q3M PRN (Reason: opioid overdose) Qty: 2 RF: 0 ketorolac 10 mg tablet 10 mg PO Q6H PRN (Reason: pain) 5 Days Qty: 20 RF: 0 ondansetron HCl [Zofran] 4 mg tablet 4 mg PO Q6H PRN (Reason: nausea and vomiting) Qty: 14 RF: 0 loperamide [Anti-Diarrheal (loperamide)] 2 mg tablet 2 mg PO Q4H PRN (Reason: loose stool) Qty: 10 RF: 0 ibuprofen 600 mg tablet 600 mg PO Q6H PRN (Reason: fever or pain) Qty: 20 RF: 0 lidocaine 5 % adhesive patch,medicated 1 patch topical DAILY PRN (Reason: back pain) Qty: 15 RF: 0 oxycodone 5 mg tablet 5 mg PO Q6H PRN (Reason: pain) Qty: 5 RF: 0 ibuprofen 600 mg tablet 600 mg PO Q6H PRN (Reason: pain) Qty: 14 RF: 0 cyclobenzaprine 5 mg tablet 5 mg PO TID PRN (Reason: muscle spasm) Qty: 10 RF: 0 cyclobenzaprine 10 mg tablet 10 mg PO TID PRN (Reason: muscle spasm) Qty: 10 RF: 0 lidocaine [Aspercreme (lidocaine HCl)] 4 % adhesive patch,medicated 1 patch topical BID PRN (Reason: pain) Qty: 10 RF: 0 naproxen 500 mg tablet 500 mg PO BID PRN (Reason: pain) Qty: 20 RF: 0 cyclobenzaprine 10 mg tablet 10 mg PO TID PRN (Reason: pain) Qty: 15 RF: 0 lidocaine HCl 4 % adhesive patch,medicated 1 patch topical BID PRN (Reason: pain) Qty: 30 RF: 0 Atarax 100 mg Tablet 100 mg PO NEEDED PRN (Reason: Anxiety) RF: 0 hydrocortisone [Anusol-HC] 2.5 % cream with perineal applicator 1 applic AR BEDTIME PRN (Reason: pain) Qty: 30 RF: 0 polyethylene glycol 3350 [Miralax] 17 gram/dose powder 17 g PO DAILY Qty: 119 RF: 0 cyclobenzaprine 10 mg tablet 10 mg PO TID PRN (Reason: muscle spasm) Qty: 30 RF: 0 tramadol 50 mg tablet 50 mg PO Q8H PRN (Reason: pain) Qty: 12 RF: 0 cyclobenzaprine 5 mg tablet 5 mg PO TID PRN (Reason: muscle spasm) Qty: 5 RF: 0 cyclobenzaprine 10 mg tablet 10 mg PO TID PRN (Reason: muscle spasm) Qty: 20 RF: 0 ketorolac 10 mg tablet 10 mg PO QID 5 Days Qty: 20 RF: 0 methocarbamol [Robaxin-750] 750 mg tablet 750 mg PO Q8H PRN (Reason: pain, severe) Qty: 10 RF: 0 acetaminophen [Tylenol Extra Strength] 500 mg tablet 500 mg PO Q6H PRN (Reason: pain or fever) Qty: 20 RF: 0 lidocaine [Lidoderm] 5 % adhesive patch,medicated 1 patch topical DAILY MDD remove after 12 hours PRN (Reason: pain) Qty: 30 RF: 0 naproxen 500 mg tablet 500 mg PO BID PRN (Reason: pain) 10 Days Qty: 20 RF: 0 cyclobenzaprine 10 mg tablet 10 mg PO TID PRN (Reason: muscle spasm) Qty: 14 RF: 0 lidocaine 4 % adhesive patch,medicated 1 patch topical DAILY PRN (Reason: pain) Qty: 10 RF: 0 ibuprofen 600 mg tablet 600 mg PO Q6H PRN (Reason: pain) Qty: 30 RF: 0 ketorolac 10 mg tablet 10 mg PO Q8H PRN (Reason: pain) Qty: 10 RF: 0 cyclobenzaprine 10 mg tablet 10 mg PO TID PRN (Reason: muscle spasm) Qty: 10 RF: 0 pantoprazole [Protonix] 20 mg tablet,delayed release (DR/EC) 20 mg PO DAILY Qty: 30 RF: 0 ondansetron 4 mg tablet,disintegrating 4 mg PO Q6-8H PRN (Reason: nausea and vomiting) Qty: 14 RF: 0 cyclobenzaprine 10 mg tablet 10 mg PO TID PRN (Reason: pain) Qty: 18 RF: 0 naproxen 500 mg tablet 500 mg PO BID PRN (Reason: pain) Qty: 20 RF: 0 lidocaine 4 % adhesive patch,medicated 1 patch topical DAILY PRN (Reason: pain) Qty: 10 RF: 0 cyclobenzaprine 10 mg tablet 10 mg PO TID Qty: 10 RF: 0 naproxen [Naprosyn] 500 mg tablet 500 mg PO BID Qty: 20 RF: 0 doxycycline hyclate 100 mg capsule 100 mg PO BID Qty: 20 RF: 0 triamcinolone acetonide 0.025 % ointment 1 appl topical BID Qty: 15 RF: 0
== END 2021-05-20 09:15 | disposition home or self-care (01) ==
PROVIDERS: Emergency Provider Emergency Medicine
DX: S90.31XA Contusion of right foot, initial encounter (principal); X50.1XXA Overexertion from prolonged static or awkward postures, initial encounter; Y93.9 Activity, unspecified; Y92.9 Unspecified place or not applicable; Y99.9 Unspecified external cause status
CPT/HCPCS: 73620; 99282; 99283

== ENCOUNTER 2021-05-29 06:55 | Emergency (ER) | payer OTHER, SELFPAY ==
[2021-05-29 07:44] VITALS: BP 124/74; PULSE 68; RESP 16; TEMP 36.6; O2SAT 99
== END 2021-05-29 08:32 | disposition left against medical advice (07) ==
PROVIDERS: Emergency Provider Emergency Medicine
DX: M54.5 Low back pain (principal)

== ENCOUNTER 2021-05-31 05:43 | Emergency (ER) | payer OTHER, SELFPAY ==
[2021-05-31 05:53] VITALS: BP 122/68; PULSE 79; RESP 16; TEMP 36.8; O2SAT 97; BMI 22.0
--- NOTE | 2021-05-31 06:25 | ED.ABDPAIN ---
HPI - Abdominal Pain General Chief Complaint: Abdominal Pain Stated Complaint: Abd pain Time Seen by Provider: 05/31/21 06:23 Source: patient Mode of arrival: ambulatory History of Present Illness HPI narrative: This is a 36-year-old male who arrives from home with complaints of epigastric pain that he describes as a ?burning sensation? since about 3:00 a.m. this morning after he drank a cup of black coffee. Patient then further informs that he has an ulcer but denies any hematemesis, but did have vomiting x1. Otherwise, he denies any fevers, chills, diarrhea. Related Data Home Medications Medication Instructions Recorded Confirmed hydroxyzine HCl 100 mg tablet 100 mg PO NEEDED PRN 08/03/20 08/03/20 Previous Rx's Medication Instructions Recorded hydrocortisone 2.5 % topical cream 1 applic NE BEDTIME PRN #30 g 08/13/20 with perineal applicator (Anusol-HC) polyethylene glycol 3350 17 17 g PO DAILY #119 g 08/13/20 gram/dose oral powder (Miralax) cyclobenzaprine 10 mg tablet 10 mg PO TID PRN #30 tab 08/15/20 tramadol 50 mg tablet 50 mg PO Q8H PRN #12 tab 08/15/20 ketorolac 10 mg tablet 10 mg PO Q6H PRN 5 Days #20 tab 08/17/20 cane #1 ea 09/01/20 cyclobenzaprine 5 mg tablet 5 mg PO TID PRN #10 tab 09/01/20 naproxen 500 mg tablet 500 mg PO BID PRN #14 tab 09/01/20 cyclobenzaprine 5 mg tablet 5 mg PO TID PRN #5 tab 09/08/20 cyclobenzaprine 10 mg tablet 10 mg PO BEDTIME PRN #3 tab 09/17/20 cyclobenzaprine 10 mg tablet 10 mg PO TID PRN #20 tab 09/22/20 ketorolac 10 mg tablet 10 mg PO QID 5 Days #20 tab 09/22/20 cephalexin 500 mg capsule (Keflex) 500 mg PO QID 7 Days #28 cap 09/26/20 doxycycline monohydrate 100 mg 100 mg PO BID 7 Days #14 cap 09/26/20 capsule cyclobenzaprine 10 mg tablet 10 mg PO TID PRN #8 tab 09/29/20 ibuprofen 600 mg tablet 600 mg PO Q8H PRN #15 tab 09/29/20 lidocaine 5 % topical patch 1 patch TOPICAL DAILY #15 ea 09/29/20 (Lidoderm) acetaminophen 500 mg tablet 500 mg PO Q6H PRN #20 tab 10/04/20 (Tylenol Extra Strength) lidocaine 5 % topical patch 1 patch TOPICAL DAILY PRN #30 ea 10/04/20 (Lidoderm) MDD remove after 12 hours methocarbamol 750 mg tablet 750 mg PO Q8H PRN #10 tab 10/04/20 (Robaxin-750) naproxen 500 mg tablet 500 mg PO BID PRN 10 Days #20 tab 10/04/20 ibuprofen 400 mg tablet 400 mg PO Q6H PRN #20 tab 10/30/20 lidocaine 5 % topical patch 1 patch TOPICAL DAILY PRN #1 ea 10/30/20 (Lidoderm) omeprazole 40 mg capsule,delayed 40 mg PO DAILY #20 cap 11/04/20 release sucralfate 1 gram tablet (Carafate) 1 g PO BID #30 tab 11/04/20 mupirocin 2 % topical ointment 1 appl TOPICAL BID #15 g 12/04/20 cyclobenzaprine 10 mg tablet 10 mg PO TID PRN #14 tab 12/07/20 ibuprofen 600 mg tablet 600 mg PO Q6H PRN #30 tab 12/07/20 lidocaine 4 % topical patch 1 patch TOPICAL DAILY PRN #10 ea 12/07/20 omeprazole 20 mg capsule,delayed 20 mg PO DAILY #30 cap 12/15/20 release vitamins no.170-iron 1 tab PO DAILY #30 tab 12/15/20 fumarate 27 mg-folic acid 1 mg tablet cyclobenzaprine 10 mg tablet 10 mg PO TID PRN #20 tab 12/27/20 lidocaine 5 % topical patch 1 patch TOPICAL Q24H #15 ea 12/27/20 ondansetron 4 mg disintegrating 4 mg PO Q8H PRN #20 tab 01/02/21 tablet naloxone 4 mg/actuation nasal 4 mg INTRANASAL Q3M PRN #2 ea 01/08/21 spray (Narcan) cyclobenzaprine 10 mg tablet 10 mg PO TID PRN #10 tab 01/16/21 ketorolac 10 mg tablet 10 mg PO Q8H PRN #10 tab 01/16/21 ketorolac 10 mg tablet 10 mg PO Q6H PRN 5 Days #20 tab 01/27/21 ibuprofen 600 mg tablet 600 mg PO Q6H PRN #20 tab 02/10/21 loperamide 2 mg tablet 2 mg PO Q4H PRN #10 tab 02/10/21 (Anti-Diarrheal (loperamide)) ondansetron HCl 4 mg tablet 4 mg PO Q6H PRN #14 tab 02/10/21 (Zofran) ondansetron 4 mg disintegrating 4 mg PO Q6-8H PRN #14 tab 02/13/21 tablet pantoprazole 20 mg tablet,delayed 20 mg PO DAILY #30 tab 02/13/21 release (Protonix) cyclobenzaprine 10 mg tablet 10 mg PO TID PRN #18 tab 02/16/21 naproxen 500 mg tablet 500 mg PO BID PRN #20 tab 02/16/21 lidocaine 4 % topical patch 1 patch TOPICAL DAILY PRN #10 ea 02/19/21 cyclobenzaprine 10 mg tablet 10 mg PO TID #10 tab 02/27/21 naproxen 500 mg tablet (Naprosyn) 500 mg PO BID #20 tab 02/27/21 cyclobenzaprine 5 mg tablet 5 mg PO TID PRN #10 tab 03/02/21 ibuprofen 600 mg tablet 600 mg PO Q6H PRN #14 tab 03/02/21 lidocaine 5 % topical patch 1 patch TOPICAL DAILY PRN #15 ea 03/02/21 oxycodone 5 mg tablet 5 mg PO Q6H PRN #5 tab 03/02/21 cyclobenzaprine 10 mg tablet 10 mg PO TID PRN #10 tab 03/28/21 lidocaine 4 % topical patch 1 patch TOPICAL BID PRN #10 ea 03/28/21 (Aspercreme (lidocaine)) doxycycline hyclate 100 mg capsule 100 mg PO BID #20 cap 03/31/21 triamcinolone acetonide 0.025 % 1 appl TOPICAL BID #15 g 04/12/21 topical ointment cyclobenzaprine 10 mg tablet 10 mg PO TID PRN #15 tab 05/04/21 lidocaine HCl 4 % topical patch 1 patch TOPICAL BID PRN #30 ea 05/04/21 naproxen 500 mg tablet 500 mg PO BID PRN #20 tab 05/04/21 sucralfate 100 mg/mL oral 10 ml PO BID #420 ml 05/31/21 suspension (Carafate) Allergies Allergy/AdvReac Type Severity Reaction Status Date / Time Penicillins [PCN] Allergy Mild RASH Verified 03/28/21 05:03 silver AdvReac Intermediate rash Verified 03/28/21 05:03 [From TEGADERM AG MESH] Review of Systems Review of Systems Pertinent positives and negatives as stated in HPI 10 point review of systems is otherwise negative. Physical Exam Vital Signs: Vital Signs: Last Vital Signs Temp 98.3 F 05/31/21 05:53 Pulse 79 05/31/21 05:53 Resp 16 05/31/21 05:53 BP 122/68 05/31/21 05:53 Pulse Ox 97 05/31/21 05:53 Body Mass Index 22.0 VITAL SIGNS: Reviewed. GENERAL: Well developed, well nourished, in no acute distress. HEAD: Normocephalic/atraumatic EYES: PERRLA, EOMI LUNGS: Normal breath sounds. No adventitious sounds or accessory muscle use. SpO2<97> CARDIOVASCULAR: Regular rate and rhythm without noted murmurs, no JVD or lower extremity edema. ABDOMEN: Soft, non-tender, non-distended with bowel sounds. NEUROLOGIC: Alert and oriented x 4. Course Course Course Narrative: 36-year-old male with history and clinical presentation consistent with gastritis and less likely felt to be pancreatitis given the circumstances described that prompted his visit. Patient was provided with a GI cocktail as well as Tylenol and was noted to tolerate oral intake prior to discharge. In addition, patient demonstrated improvement of his symptoms and was discharged in stable condition with a script for Carafate. Discharge Plan Discharge Clinical Impression: Gastritis Patient Disposition: Home, Self-Care Instructions: Gastritis (ED), Diet for Stomach Ulcers and Gastritis (ED) Additional Instructions: 1. You have been prescribed a liquid medication for treatment of your ulcer. 2. Recommend following up with your primary care provider in the next 2-3 days for re-evaluation further outpatient management. Return to the ER for any acute worsening of symptoms. Prescriptions: New sucralfate [Carafate] 100 mg/mL suspension 10 ml PO BID Qty: 420 RF: 0 No Action ketorolac 10 mg tablet 10 mg PO Q6H PRN (Reason: pain) 5 Days Qty: 20 RF: 0 naproxen 500 mg tablet 500 mg PO BID PRN (Reason: pain) Qty: 14 RF: 0 cyclobenzaprine 5 mg tablet 5 mg PO TID PRN (Reason: muscle spasm) Qty: 10 RF: 0 (DME) cane Device See Rx Instructions .ROUTE .MEDSUPPLY Qty: 1 RF: 0 cyclobenzaprine 10 mg tablet 10 mg PO BEDTIME PRN (Reason: muscle spasm) Qty: 3 RF: 0 doxycycline monohydrate 100 mg capsule 100 mg PO BID 7 Days Qty: 14 RF: 0 cephalexin [Keflex] 500 mg capsule 500 mg PO QID 7 Days Qty: 28 RF: 0 lidocaine [Lidoderm] 5 % adhesive patch,medicated 1 patch topical DAILY Qty: 15 RF: 0 ibuprofen 600 mg tablet 600 mg PO Q8H PRN (Reason: pain) Qty: 15 RF: 0 cyclobenzaprine 10 mg tablet 10 mg PO TID PRN (Reason: muscle spasm) Qty: 8 RF: 0 lidocaine [Lidoderm] 5 % adhesive patch,medicated 1 patch topical DAILY PRN (Reason: pain) Qty: 1 RF: 0 ibuprofen 400 mg tablet 400 mg PO Q6H PRN (Reason: pain) Qty: 20 RF: 0 omeprazole 40 mg capsule,delayed release(DR/EC) 40 mg PO DAILY Qty: 20 RF: 0 sucralfate [Carafate] 1 gram tablet 1 g PO BID Qty: 30 RF: 0 mupirocin 2 % ointment 1 appl topical BID Qty: 15 RF: 0 omeprazole 20 mg capsule,delayed release(DR/EC) 20 mg PO DAILY Qty: 30 RF: 0 PNV no.170-iron fum-folic acid 27 mg iron- 1 mg tablet 1 tab PO DAILY Qty: 30 RF: 0 cyclobenzaprine 10 mg tablet 10 mg PO TID PRN (Reason: muscle pain or spasm) Qty: 20 RF: 0 lidocaine 5 % adhesive patch,medicated 1 patch topical Q24H Qty: 15 RF: 0 ondansetron 4 mg tablet,disintegrating 4 mg PO Q8H PRN (Reason: nausea and vomiting) Qty: 20 RF: 0 Narcan 4 mg/actuation spray,non-aerosol 4 mg intranasal Q3M PRN (Reason: opioid overdose) Qty: 2 RF: 0 ketorolac 10 mg tablet 10 mg PO Q6H PRN (Reason: pain) 5 Days Qty: 20 RF: 0 ondansetron HCl [Zofran] 4 mg tablet 4 mg PO Q6H PRN (Reason: nausea and vomiting) Qty: 14 RF: 0 loperamide [Anti-Diarrheal (loperamide)] 2 mg tablet 2 mg PO Q4H PRN (Reason: loose stool) Qty: 10 RF: 0 ibuprofen 600 mg tablet 600 mg PO Q6H PRN (Reason: fever or pain) Qty: 20 RF: 0 lidocaine 5 % adhesive patch,medicated 1 patch topical DAILY PRN (Reason: back pain) Qty: 15 RF: 0 oxycodone 5 mg tablet 5 mg PO Q6H PRN (Reason: pain) Qty: 5 RF: 0 ibuprofen 600 mg tablet 600 mg PO Q6H PRN (Reason: pain) Qty: 14 RF: 0 cyclobenzaprine 5 mg tablet 5 mg PO TID PRN (Reason: muscle spasm) Qty: 10 RF: 0 cyclobenzaprine 10 mg tablet 10 mg PO TID PRN (Reason: muscle spasm) Qty: 10 RF: 0 lidocaine [Aspercreme (lidocaine HCl)] 4 % adhesive patch,medicated 1 patch topical BID PRN (Reason: pain) Qty: 10 RF: 0 naproxen 500 mg tablet 500 mg PO BID PRN (Reason: pain) Qty: 20 RF: 0 cyclobenzaprine 10 mg tablet 10 mg PO TID PRN (Reason: pain) Qty: 15 RF: 0 lidocaine HCl 4 % adhesive patch,medicated 1 patch topical BID PRN (Reason: pain) Qty: 30 RF: 0 Atarax 100 mg Tablet 100 mg PO NEEDED PRN (Reason: Anxiety) RF: 0 hydrocortisone [Anusol-HC] 2.5 % cream with perineal applicator 1 applic NE BEDTIME PRN (Reason: pain) Qty: 30 RF: 0 polyethylene glycol 3350 [Miralax] 17 gram/dose powder 17 g PO DAILY Qty: 119 RF: 0 cyclobenzaprine 10 mg tablet 10 mg PO TID PRN (Reason: muscle spasm) Qty: 30 RF: 0 tramadol 50 mg tablet 50 mg PO Q8H PRN (Reason: pain) Qty: 12 RF: 0 cyclobenzaprine 5 mg tablet 5 mg PO TID PRN (Reason: muscle spasm) Qty: 5 RF: 0 cyclobenzaprine 10 mg tablet 10 mg PO TID PRN (Reason: muscle spasm) Qty: 20 RF: 0 ketorolac 10 mg tablet 10 mg PO QID 5 Days Qty: 20 RF: 0 methocarbamol [Robaxin-750] 750 mg tablet 750 mg PO Q8H PRN (Reason: pain, severe) Qty: 10 RF: 0 acetaminophen [Tylenol Extra Strength] 500 mg tablet 500 mg PO Q6H PRN (Reason: pain or fever) Qty: 20 RF: 0 lidocaine [Lidoderm] 5 % adhesive patch,medicated 1 patch topical DAILY MDD remove after 12 hours PRN (Reason: pain) Qty: 30 RF: 0 naproxen 500 mg tablet 500 mg PO BID PRN (Reason: pain) 10 Days Qty: 20 RF: 0 cyclobenzaprine 10 mg tablet 10 mg PO TID PRN (Reason: muscle spasm) Qty: 14 RF: 0 lidocaine 4 % adhesive patch,medicated 1 patch topical DAILY PRN (Reason: pain) Qty: 10 RF: 0 ibuprofen 600 mg tablet 600 mg PO Q6H PRN (Reason: pain) Qty: 30 RF: 0 ketorolac 10 mg tablet 10 mg PO Q8H PRN (Reason: pain) Qty: 10 RF: 0 cyclobenzaprine 10 mg tablet 10 mg PO TID PRN (Reason: muscle spasm) Qty: 10 RF: 0 pantoprazole [Protonix] 20 mg tablet,delayed release (DR/EC) 20 mg PO DAILY Qty: 30 RF: 0 ondansetron 4 mg tablet,disintegrating 4 mg PO Q6-8H PRN (Reason: nausea and vomiting) Qty: 14 RF: 0 cyclobenzaprine 10 mg tablet 10 mg PO TID PRN (Reason: pain) Qty: 18 RF: 0 naproxen 500 mg tablet 500 mg PO BID PRN (Reason: pain) Qty: 20 RF: 0 lidocaine 4 % adhesive patch,medicated 1 patch topical DAILY PRN (Reason: pain) Qty: 10 RF: 0 cyclobenzaprine 10 mg tablet 10 mg PO TID Qty: 10 RF: 0 naproxen [Naprosyn] 500 mg tablet 500 mg PO BID Qty: 20 RF: 0 doxycycline hyclate 100 mg capsule 100 mg PO BID Qty: 20 RF: 0 triamcinolone acetonide 0.025 % ointment 1 appl topical BID Qty: 15 RF: 0 Referrals: Ave Mckin[facility] PA [Primary Care Provider] - 2 days PMF Past Medical History Source: nursing notes reviewed Medical History Anxiety Bipolar 1 disorder Contusion Depression Foot drop, right foot Heart murmur Schizophrenia Surgical History No pertinent past surgical history Social History Social History Alcohol intake: unknown Substance Use Type: Marijuana Advance Directives: No Advance Directives Information Provided: No
[2021-05-31] MEDS: Acetaminophen 325 MG TABLET 975 MG PO (06:31)
[2021-05-31] MEDS: Lidocaine HCl Viscous 2 % 15 ML SOLUTION 10 ML MUCOUS MEM (06:31)
[2021-05-31] MEDS: Magnesium Hydrox/Alum Hydrox 30 ML ORAL.SUSP PO (06:31)
== END 2021-05-31 06:35 | disposition home or self-care (01) ==
PROVIDERS: Emergency Provider Student in an Organized Health Care Education/Training Program; PCP Physician Assistant Medical
DX: K29.70 Gastritis, unspecified, without bleeding (principal); I10 Essential (primary) hypertension; F19.10 Other psychoactive substance abuse, uncomplicated; F20.9 Schizophrenia, unspecified
CPT/HCPCS: 99283

== ENCOUNTER 2021-06-02 05:48 | Emergency (ER) | payer OTHER, SELFPAY ==
[2021-06-02 06:04] VITALS: BP 129/76; PULSE 62; RESP 16; TEMP 36.3; O2SAT 96; BMI 24.2
--- NOTE | 2021-06-02 06:31 | ED.GENADULT ---
HPI - General Adult General Chief complaint: General Medical Stated complaint: wants detox Time Seen by Provider: 06/02/21 06:31 Source: patient Mode of arrival: ambulatory Limitations: no limitations History of Present Illness HPI narrative: no SI requesting help to go to detox for ETOH complaint: requesting help with detox Onset (ago): day(s) Severity: mild Relieving factors: none Exacerbating factors: other (drinking ETOH) Associated symptoms: denies other symptoms Treatments prior to arrival: none Related Data Home Medications Medication Instructions Recorded Confirmed hydroxyzine HCl 100 mg tablet 100 mg PO NEEDED PRN 08/03/20 08/03/20 Previous Rx's Medication Instructions Recorded hydrocortisone 2.5 % topical cream 1 applic [place] BEDTIME PRN #30 g 08/13/20 with perineal applicator (Anusol-HC) polyethylene glycol 3350 17 17 g PO DAILY #119 g 08/13/20 gram/dose oral powder (Miralax) cyclobenzaprine 10 mg tablet 10 mg PO TID PRN #30 tab 08/15/20 tramadol 50 mg tablet 50 mg PO Q8H PRN #12 tab 08/15/20 ketorolac 10 mg tablet 10 mg PO Q6H PRN 5 Days #20 tab 08/17/20 cane #1 ea 09/01/20 cyclobenzaprine 5 mg tablet 5 mg PO TID PRN #10 tab 09/01/20 naproxen 500 mg tablet 500 mg PO BID PRN #14 tab 09/01/20 cyclobenzaprine 5 mg tablet 5 mg PO TID PRN #5 tab 09/08/20 cyclobenzaprine 10 mg tablet 10 mg PO BEDTIME PRN #3 tab 09/17/20 cyclobenzaprine 10 mg tablet 10 mg PO TID PRN #20 tab 09/22/20 ketorolac 10 mg tablet 10 mg PO QID 5 Days #20 tab 09/22/20 cephalexin 500 mg capsule (Keflex) 500 mg PO QID 7 Days #28 cap 09/26/20 doxycycline monohydrate 100 mg 100 mg PO BID 7 Days #14 cap 09/26/20 capsule cyclobenzaprine 10 mg tablet 10 mg PO TID PRN #8 tab 09/29/20 ibuprofen 600 mg tablet 600 mg PO Q8H PRN #15 tab 09/29/20 lidocaine 5 % topical patch 1 patch TOPICAL DAILY #15 ea 09/29/20 (Lidoderm) acetaminophen 500 mg tablet 500 mg PO Q6H PRN #20 tab 10/04/20 (Tylenol Extra Strength) lidocaine 5 % topical patch 1 patch TOPICAL DAILY PRN #30 ea 10/04/20 (Lidoderm) MDD remove after 12 hours methocarbamol 750 mg tablet 750 mg PO Q8H PRN #10 tab 10/04/20 (Robaxin-750) naproxen 500 mg tablet 500 mg PO BID PRN 10 Days #20 tab 10/04/20 ibuprofen 400 mg tablet 400 mg PO Q6H PRN #20 tab 10/30/20 lidocaine 5 % topical patch 1 patch TOPICAL DAILY PRN #1 ea 10/30/20 (Lidoderm) omeprazole 40 mg capsule,delayed 40 mg PO DAILY #20 cap 11/04/20 release sucralfate 1 gram tablet (Carafate) 1 g PO BID #30 tab 11/04/20 mupirocin 2 % topical ointment 1 appl TOPICAL BID #15 g 12/04/20 cyclobenzaprine 10 mg tablet 10 mg PO TID PRN #14 tab 12/07/20 ibuprofen 600 mg tablet 600 mg PO Q6H PRN #30 tab 12/07/20 lidocaine 4 % topical patch 1 patch TOPICAL DAILY PRN #10 ea 12/07/20 omeprazole 20 mg capsule,delayed 20 mg PO DAILY #30 cap 12/15/20 release vitamins no.170-iron 1 tab PO DAILY #30 tab 12/15/20 fumarate 27 mg-folic acid 1 mg tablet cyclobenzaprine 10 mg tablet 10 mg PO TID PRN #20 tab 12/27/20 lidocaine 5 % topical patch 1 patch TOPICAL Q24H #15 ea 12/27/20 ondansetron 4 mg disintegrating 4 mg PO Q8H PRN #20 tab 01/02/21 tablet naloxone 4 mg/actuation nasal 4 mg INTRANASAL Q3M PRN #2 ea 01/08/21 spray (Narcan) cyclobenzaprine 10 mg tablet 10 mg PO TID PRN #10 tab 01/16/21 ketorolac 10 mg tablet 10 mg PO Q8H PRN #10 tab 01/16/21 ketorolac 10 mg tablet 10 mg PO Q6H PRN 5 Days #20 tab 01/27/21 ibuprofen 600 mg tablet 600 mg PO Q6H PRN #20 tab 02/10/21 loperamide 2 mg tablet 2 mg PO Q4H PRN #10 tab 02/10/21 (Anti-Diarrheal (loperamide)) ondansetron HCl 4 mg tablet 4 mg PO Q6H PRN #14 tab 02/10/21 (Zofran) ondansetron 4 mg disintegrating 4 mg PO Q6-8H PRN #14 tab 02/13/21 tablet pantoprazole 20 mg tablet,delayed 20 mg PO DAILY #30 tab 02/13/21 release (Protonix) cyclobenzaprine 10 mg tablet 10 mg PO TID PRN #18 tab 02/16/21 naproxen 500 mg tablet 500 mg PO BID PRN #20 tab 02/16/21 lidocaine 4 % topical patch 1 patch TOPICAL DAILY PRN #10 ea 02/19/21 cyclobenzaprine 10 mg tablet 10 mg PO TID #10 tab 02/27/21 naproxen 500 mg tablet (Naprosyn) 500 mg PO BID #20 tab 02/27/21 cyclobenzaprine 5 mg tablet 5 mg PO TID PRN #10 tab 03/02/21 ibuprofen 600 mg tablet 600 mg PO Q6H PRN #14 tab 03/02/21 lidocaine 5 % topical patch 1 patch TOPICAL DAILY PRN #15 ea 03/02/21 oxycodone 5 mg tablet 5 mg PO Q6H PRN #5 tab 03/02/21 cyclobenzaprine 10 mg tablet 10 mg PO TID PRN #10 tab 03/28/21 lidocaine 4 % topical patch 1 patch TOPICAL BID PRN #10 ea 03/28/21 (Aspercreme (lidocaine)) doxycycline hyclate 100 mg capsule 100 mg PO BID #20 cap 03/31/21 triamcinolone acetonide 0.025 % 1 appl TOPICAL BID #15 g 04/12/21 topical ointment cyclobenzaprine 10 mg tablet 10 mg PO TID PRN #15 tab 05/04/21 lidocaine HCl 4 % topical patch 1 patch TOPICAL BID PRN #30 ea 05/04/21 naproxen 500 mg tablet 500 mg PO BID PRN #20 tab 05/04/21 sucralfate 100 mg/mL oral 10 ml PO BID #420 ml 05/31/21 suspension (Carafate) Allergies Allergy/AdvReac Type Severity Reaction Status Date / Time Penicillins [PCN] Allergy Mild RASH Verified 03/28/21 05:03 silver AdvReac Intermediate rash Verified 03/28/21 05:03 [From [facility] MESH] Review of Systems Review of Systems: Constitutional :No Fever, No Chills ENT/Mouth : No sore throat, No Rhinorrhea Eyes: No Eye Pain, No Swelling, No Redness Cardiovascular : No Chest Pain, No SOB Respiratory : No Cough, No Sputum, No Wheezing Gastrointestinal : No Nausea, No Vomiting, No Diarrhea Genitourinary : No Dysuria, No Urinary Frequency Musculoskeletal : No joint pain, No Myalgias Skin : No Skin Lesions, No rash Neuro : No Weakness, No Numbness Psych : No Anxiety/Panic, No Depression PMFSH Past Medical History Attestation statement: The following information was validated with the patient. Medical History Anxiety Bipolar 1 disorder Contusion Depression Foot drop, right foot Heart murmur Schizophrenia Surgical History No pertinent past surgical history Social History Social History Alcohol intake: unknown Substance Use Type: Marijuana Advance Directives: No Advance Directives Information Provided: No Physical Exam Vital Signs: Vital Signs: Last Vital Signs Temp 97.3 F 06/02/21 06:04 Pulse 62 06/02/21 06:04 Resp 16 06/02/21 06:04 BP 129/76 06/02/21 06:04 Pulse Ox 96 06/02/21 06:04 Body Mass Index 24.2 Appearance: Alert. Oriented X3. No acute distress. Eyes: Pupils equal, round and reactive to light. ENT: Pharynx normal. Neck: Normal inspection. Neck supple. CVS: Normal heart rate and rhythm. Pulses normal. Respiratory: No respiratory distress. Breath sounds normal. Abdomen: Soft and nontender. Skin: Skin warm and dry. Normal skin color. Normal skin turgor. Extremities: No lower extremity edema. No calf ttp Neuro: Oriented X 3. No motor deficit. No sensory deficit. 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 Discharge Plan Discharge Clinical Impression: Alcohol abuse Patient Disposition: Home, Self-Care Instructions: Abuse of Alcohol (ED) Additional Instructions: return to ED for any worsening symptoms or concerns Prescriptions: No Action ketorolac 10 mg tablet 10 mg PO Q6H PRN (Reason: pain) 5 Days Qty: 20 RF: 0 naproxen 500 mg tablet 500 mg PO BID PRN (Reason: pain) Qty: 14 RF: 0 cyclobenzaprine 5 mg tablet 5 mg PO TID PRN (Reason: muscle spasm) Qty: 10 RF: 0 (DME) cane Device See Rx Instructions .ROUTE .MEDSUPPLY Qty: 1 RF: 0 cyclobenzaprine 10 mg tablet 10 mg PO BEDTIME PRN (Reason: muscle spasm) Qty: 3 RF: 0 doxycycline monohydrate 100 mg capsule 100 mg PO BID 7 Days Qty: 14 RF: 0 cephalexin [Keflex] 500 mg capsule 500 mg PO QID 7 Days Qty: 28 RF: 0 lidocaine [Lidoderm] 5 % adhesive patch,medicated 1 patch topical DAILY Qty: 15 RF: 0 ibuprofen 600 mg tablet 600 mg PO Q8H PRN (Reason: pain) Qty: 15 RF: 0 cyclobenzaprine 10 mg tablet 10 mg PO TID PRN (Reason: muscle spasm) Qty: 8 RF: 0 lidocaine [Lidoderm] 5 % adhesive patch,medicated 1 patch topical DAILY PRN (Reason: pain) Qty: 1 RF: 0 ibuprofen 400 mg tablet 400 mg PO Q6H PRN (Reason: pain) Qty: 20 RF: 0 omeprazole 40 mg capsule,delayed release(DR/EC) 40 mg PO DAILY Qty: 20 RF: 0 sucralfate [Carafate] 1 gram tablet 1 g PO BID Qty: 30 RF: 0 mupirocin 2 % ointment 1 appl topical BID Qty: 15 RF: 0 omeprazole 20 mg capsule,delayed release(DR/EC) 20 mg PO DAILY Qty: 30 RF: 0 PNV no.170-iron fum-folic acid 27 mg iron- 1 mg tablet 1 tab PO DAILY Qty: 30 RF: 0 cyclobenzaprine 10 mg tablet 10 mg PO TID PRN (Reason: muscle pain or spasm) Qty: 20 RF: 0 lidocaine 5 % adhesive patch,medicated 1 patch topical Q24H Qty: 15 RF: 0 ondansetron 4 mg tablet,disintegrating 4 mg PO Q8H PRN (Reason: nausea and vomiting) Qty: 20 RF: 0 Narcan 4 mg/actuation spray,non-aerosol 4 mg intranasal Q3M PRN (Reason: opioid overdose) Qty: 2 RF: 0 ketorolac 10 mg tablet 10 mg PO Q6H PRN (Reason: pain) 5 Days Qty: 20 RF: 0 ondansetron HCl [Zofran] 4 mg tablet 4 mg PO Q6H PRN (Reason: nausea and vomiting) Qty: 14 RF: 0 loperamide [Anti-Diarrheal (loperamide)] 2 mg tablet 2 mg PO Q4H PRN (Reason: loose stool) Qty: 10 RF: 0 ibuprofen 600 mg tablet 600 mg PO Q6H PRN (Reason: fever or pain) Qty: 20 RF: 0 lidocaine 5 % adhesive patch,medicated 1 patch topical DAILY PRN (Reason: back pain) Qty: 15 RF: 0 oxycodone 5 mg tablet 5 mg PO Q6H PRN (Reason: pain) Qty: 5 RF: 0 ibuprofen 600 mg tablet 600 mg PO Q6H PRN (Reason: pain) Qty: 14 RF: 0 cyclobenzaprine 5 mg tablet 5 mg PO TID PRN (Reason: muscle spasm) Qty: 10 RF: 0 cyclobenzaprine 10 mg tablet 10 mg PO TID PRN (Reason: muscle spasm) Qty: 10 RF: 0 lidocaine [Aspercreme (lidocaine HCl)] 4 % adhesive patch,medicated 1 patch topical BID PRN (Reason: pain) Qty: 10 RF: 0 naproxen 500 mg tablet 500 mg PO BID PRN (Reason: pain) Qty: 20 RF: 0 cyclobenzaprine 10 mg tablet 10 mg PO TID PRN (Reason: pain) Qty: 15 RF: 0 lidocaine HCl 4 % adhesive patch,medicated 1 patch topical BID PRN (Reason: pain) Qty: 30 RF: 0 Atarax 100 mg Tablet 100 mg PO NEEDED PRN (Reason: Anxiety) RF: 0 hydrocortisone [Anusol-HC] 2.5 % cream with perineal applicator 1 applic WI BEDTIME PRN (Reason: pain) Qty: 30 RF: 0 polyethylene glycol 3350 [Miralax] 17 gram/dose powder 17 g PO DAILY Qty: 119 RF: 0 cyclobenzaprine 10 mg tablet 10 mg PO TID PRN (Reason: muscle spasm) Qty: 30 RF: 0 tramadol 50 mg tablet 50 mg PO Q8H PRN (Reason: pain) Qty: 12 RF: 0 cyclobenzaprine 5 mg tablet 5 mg PO TID PRN (Reason: muscle spasm) Qty: 5 RF: 0 cyclobenzaprine 10 mg tablet 10 mg PO TID PRN (Reason: muscle spasm) Qty: 20 RF: 0 ketorolac 10 mg tablet 10 mg PO QID 5 Days Qty: 20 RF: 0 methocarbamol [Robaxin-750] 750 mg tablet 750 mg PO Q8H PRN (Reason: pain, severe) Qty: 10 RF: 0 acetaminophen [Tylenol Extra Strength] 500 mg tablet 500 mg PO Q6H PRN (Reason: pain or fever) Qty: 20 RF: 0 lidocaine [Lidoderm] 5 % adhesive patch,medicated 1 patch topical DAILY MDD remove after 12 hours PRN (Reason: pain) Qty: 30 RF: 0 naproxen 500 mg tablet 500 mg PO BID PRN (Reason: pain) 10 Days Qty: 20 RF: 0 cyclobenzaprine 10 mg tablet 10 mg PO TID PRN (Reason: muscle spasm) Qty: 14 RF: 0 lidocaine 4 % adhesive patch,medicated 1 patch topical DAILY PRN (Reason: pain) Qty: 10 RF: 0 ibuprofen 600 mg tablet 600 mg PO Q6H PRN (Reason: pain) Qty: 30 RF: 0 ketorolac 10 mg tablet 10 mg PO Q8H PRN (Reason: pain) Qty: 10 RF: 0 cyclobenzaprine 10 mg tablet 10 mg PO TID PRN (Reason: muscle spasm) Qty: 10 RF: 0 pantoprazole [Protonix] 20 mg tablet,delayed release (DR/EC) 20 mg PO DAILY Qty: 30 RF: 0 ondansetron 4 mg tablet,disintegrating 4 mg PO Q6-8H PRN (Reason: nausea and vomiting) Qty: 14 RF: 0 cyclobenzaprine 10 mg tablet 10 mg PO TID PRN (Reason: pain) Qty: 18 RF: 0 naproxen 500 mg tablet 500 mg PO BID PRN (Reason: pain) Qty: 20 RF: 0 lidocaine 4 % adhesive patch,medicated 1 patch topical DAILY PRN (Reason: pain) Qty: 10 RF: 0 cyclobenzaprine 10 mg tablet 10 mg PO TID Qty: 10 RF: 0 naproxen [Naprosyn] 500 mg tablet 500 mg PO BID Qty: 20 RF: 0 doxycycline hyclate 100 mg capsule 100 mg PO BID Qty: 20 RF: 0 triamcinolone acetonide 0.025 % ointment 1 appl topical BID Qty: 15 RF: 0 sucralfate [Carafate] 100 mg/mL suspension 10 ml PO BID Qty: 420 RF: 0
== END 2021-06-02 06:58 | disposition home or self-care (01) ==
PROVIDERS: Emergency Provider Emergency Medicine
DX: F10.10 Alcohol abuse, uncomplicated (principal); Y90.9 Presence of alcohol in blood, level not specified; I10 Essential (primary) hypertension; F12.90 Cannabis use, unspecified, uncomplicated; Z86.16 Personal history of COVID-19; Z79.899 Other long term (current) drug therapy
CPT/HCPCS: 99283

== ENCOUNTER 2021-06-10 07:57 | Emergency (ER) | payer OTHER, SELFPAY ==
[2021-06-10 08:15] VITALS: BP 140/97; PULSE 64; RESP 16; TEMP 36.2; O2SAT 99; BMI 24.3
[2021-06-10 09:33] LABS: Glucose Urine UA NEG (NEG); Leukocyte Esterase Urine NEG (NEG); Nitrite Urine NEG (NEG); Specific Gravity - Urine 1.025 (1.005-1.025); Urine Blood NEG (NEG); Urine Ketones NEG (NEG); Urine Protein NEG (NEG-TRACE)
[2021-06-10 09:40] LABS: RBC Urine 0 /HPF (0); WBC Urine 0 /HPF (0-4)
[2021-06-10 10:01] LABS: Appearance Urine CLEAR; Color Urine YELLOW
--- NOTE | 2021-06-10 10:18 | ED_ITS ---
HPI - Back Pain/Injury General Chief Complaint: Back Pain/Injury <RADHA Cassidy Last Filed: 06/10/21 19:35> Stated Complaint: back pain <RADHA Cassidy Last Filed: 06/10/21 19:35> Time Seen by Provider: 06/10/21 10:04 <RADHA Cassidy Last Filed: 06/10/21 19:35> Source: patient <RADHA Cassidy Last Filed: 06/10/21 19:35> Mode of arrival: ambulatory <RDAHA Cassidy Last Filed: 06/10/21 19:35> Limitations: no limitations <RADHA Cassidy Last Filed: 06/10/21 19:35> History of Present Illness HPI Narrative: 36-year-old male with a past medical history of schizophrenia presents for acute on chronic low back pain. States 4 years ago he sustained an injury at work lifting, and has had chronic low back pain since then. No back surgeries. Patient was referred to physical therapy which never helped. Today his low back pain is worse, there is no precipitating event, he is not sure why his back pain is worse today. Patient has no red flag symptoms, no leg weakness, no saddle paresthesias, no history of IV drug use, no personal history of cancer, no incontinence of bowel or bladder, no fevers. Patient states his back pain today feels like the back pain he has had in the past. States his insurance does not pay for lidocaine patches, was wondering if he could have a lidocaine patch here in the emergency room. <RADHA Cassidy - Last Filed: 06/10/21 19:35> MD elicited complaint: back pain <RADHA Cassidy Last Filed: 06/10/21 19:35> Pertinent past history: prior back pain <RADHA Cassidy Last Filed: 06/10/21 19:35> Onset (ago): day(s) (1) <RADHA Cassidy Last Filed: 06/10/21 19:35> Timing: constant <RADHA Cassidy Last Filed: 06/10/21 19:35> Severity: moderate <RADHA Cassidy Last Filed: 06/10/21 19:35> Similar Symptoms Previously: Yes <RADHA Cassidy - Last Filed: 06/10/21 19:35> Quality: aching <RADHA Cassidy - Last Filed: 06/10/21 19:35> Location: right lower back and left lower back <RADHA Cassidy - Last Filed: 06/10/21 19:35> Radiation: none <RADHA Cassidy - Last Filed: 06/10/21 19:35> Exacerbating factors: movement <RDAHA Cassidy - Last Filed: 06/10/21 19:35> Relieving factors: none <RADHA Cassidy - Last Filed: 06/10/21 19:35> Associated symptoms: denies other symptoms <RADHA Cassidy - Last Filed: 06/10/21 19:35> Work related injury: No <RADHA Cassidy - Last Filed: 06/10/21 19:35> Related Data Home Medications: Home Medications Medication Instructions Recorded Confirmed hydroxyzine HCl 100 mg tablet 100 mg PO NEEDED PRN 08/03/20 08/03/20 Previous Rx's Medication Instructions Recorded hydrocortisone 2.5 % topical cream 1 applic PA BEDTIME PRN #30 g 08/13/20 with perineal applicator (Anusol-HC) polyethylene glycol 3350 17 17 g PO DAILY #119 g 08/13/20 gram/dose oral powder (Miralax) cyclobenzaprine 10 mg tablet 10 mg PO TID PRN #30 tab 08/15/20 tramadol 50 mg tablet 50 mg PO Q8H PRN #12 tab 08/15/20 ketorolac 10 mg tablet 10 mg PO Q6H PRN 5 Days #20 tab 08/17/20 cane #1 ea 09/01/20 cyclobenzaprine 5 mg tablet 5 mg PO TID PRN #10 tab 09/01/20 naproxen 500 mg tablet 500 mg PO BID PRN #14 tab 09/01/20 cyclobenzaprine 5 mg tablet 5 mg PO TID PRN #5 tab 09/08/20 cyclobenzaprine 10 mg tablet 10 mg PO BEDTIME PRN #3 tab 09/17/20 cyclobenzaprine 10 mg tablet 10 mg PO TID PRN #20 tab 09/22/20 ketorolac 10 mg tablet 10 mg PO QID 5 Days #20 tab 09/22/20 cephalexin 500 mg capsule (Keflex) 500 mg PO QID 7 Days #28 cap 09/26/20 doxycycline monohydrate 100 mg 100 mg PO BID 7 Days #14 cap 09/26/20 capsule cyclobenzaprine 10 mg tablet 10 mg PO TID PRN #8 tab 09/29/20 ibuprofen 600 mg tablet 600 mg PO Q8H PRN #15 tab 09/29/20 lidocaine 5 % topical patch 1 patch TOPICAL DAILY #15 ea 09/29/20 (Lidoderm) acetaminophen 500 mg tablet 500 mg PO Q6H PRN #20 tab 10/04/20 (Tylenol Extra Strength) lidocaine 5 % topical patch 1 patch TOPICAL DAILY PRN #30 ea 10/04/20 (Lidoderm) MDD remove after 12 hours methocarbamol 750 mg tablet 750 mg PO Q8H PRN #10 tab 10/04/20 (Robaxin-750) naproxen 500 mg tablet 500 mg PO BID PRN 10 Days #20 tab 10/04/20 ibuprofen 400 mg tablet 400 mg PO Q6H PRN #20 tab 10/30/20 lidocaine 5 % topical patch 1 patch TOPICAL DAILY PRN #1 ea 10/30/20 (Lidoderm) omeprazole 40 mg capsule,delayed 40 mg PO DAILY #20 cap 11/04/20 release sucralfate 1 gram tablet (Carafate) 1 g PO BID #30 tab 11/04/20 mupirocin 2 % topical ointment 1 appl TOPICAL BID #15 g 12/04/20 cyclobenzaprine 10 mg tablet 10 mg PO TID PRN #14 tab 12/07/20 ibuprofen 600 mg tablet 600 mg PO Q6H PRN #30 tab 12/07/20 lidocaine 4 % topical patch 1 patch TOPICAL DAILY PRN #10 ea 12/07/20 omeprazole 20 mg capsule,delayed 20 mg PO DAILY #30 cap 12/15/20 release vitamins no.170-iron 1 tab PO DAILY #30 tab 12/15/20 fumarate 27 mg-folic acid 1 mg tablet cyclobenzaprine 10 mg tablet 10 mg PO TID PRN #20 tab 12/27/20 lidocaine 5 % topical patch 1 patch TOPICAL Q24H #15 ea 12/27/20 ondansetron 4 mg disintegrating 4 mg PO Q8H PRN #20 tab 01/02/21 tablet naloxone 4 mg/actuation nasal 4 mg INTRANASAL Q3M PRN #2 ea 01/08/21 spray (Narcan) cyclobenzaprine 10 mg tablet 10 mg PO TID PRN #10 tab 01/16/21 ketorolac 10 mg tablet 10 mg PO Q8H PRN #10 tab 01/16/21 ketorolac 10 mg tablet 10 mg PO Q6H PRN 5 Days #20 tab 01/27/21 ibuprofen 600 mg tablet 600 mg PO Q6H PRN #20 tab 02/10/21 loperamide 2 mg tablet 2 mg PO Q4H PRN #10 tab 02/10/21 (Anti-Diarrheal (loperamide)) ondansetron HCl 4 mg tablet 4 mg PO Q6H PRN #14 tab 02/10/21 (Zofran) ondansetron 4 mg disintegrating 4 mg PO Q6-8H PRN #14 tab 02/13/21 tablet pantoprazole 20 mg tablet,delayed 20 mg PO DAILY #30 tab 02/13/21 release (Protonix) cyclobenzaprine 10 mg tablet 10 mg PO TID PRN #18 tab 02/16/21 naproxen 500 mg tablet 500 mg PO BID PRN #20 tab 02/16/21 lidocaine 4 % topical patch 1 patch TOPICAL DAILY PRN #10 ea 02/19/21 cyclobenzaprine 10 mg tablet 10 mg PO TID #10 tab 02/27/21 naproxen 500 mg tablet (Naprosyn) 500 mg PO BID #20 tab 02/27/21 cyclobenzaprine 5 mg tablet 5 mg PO TID PRN #10 tab 03/02/21 ibuprofen 600 mg tablet 600 mg PO Q6H PRN #14 tab 03/02/21 lidocaine 5 % topical patch 1 patch TOPICAL DAILY PRN #15 ea 03/02/21 oxycodone 5 mg tablet 5 mg PO Q6H PRN #5 tab 03/02/21 cyclobenzaprine 10 mg tablet 10 mg PO TID PRN #10 tab 03/28/21 lidocaine 4 % topical patch 1 patch TOPICAL BID PRN #10 ea 03/28/21 (Aspercreme (lidocaine)) doxycycline hyclate 100 mg capsule 100 mg PO BID #20 cap 03/31/21 triamcinolone acetonide 0.025 % 1 appl TOPICAL BID #15 g 04/12/21 topical ointment cyclobenzaprine 10 mg tablet 10 mg PO TID PRN #15 tab 05/04/21 lidocaine HCl 4 % topical patch 1 patch TOPICAL BID PRN #30 ea 05/04/21 naproxen 500 mg tablet 500 mg PO BID PRN #20 tab 05/04/21 sucralfate 100 mg/mL oral 10 ml PO BID #420 ml 05/31/21 suspension (Carafate) cyclobenzaprine 10 mg tablet 10 mg PO TID #9 tab 06/10/21 ketorolac 10 mg tablet 10 mg PO TID PRN 5 Days tab 06/10/21 <RADHA Cassidy - Last Filed: 06/10/21 19:35> Allergies/Adverse Reactions: Allergies Allergy/AdvReac Type Severity Reaction Status Date / Time Penicillins [PCN] Allergy Mild RASH Verified 03/28/21 05:03 silver AdvReac Intermediate rash Verified 03/28/21 05:03 [From [facility]] <RADHA Cassidy - Last Filed: 06/10/21 19:35> Review of Systems Review of Systems: Constitutional : No Weight loss, No Fever, No Chills, No Night Sweats,No Fatigue, No Malaise ENT/Mouth : No Hearing loss, No Ear Pain, No Nasal Congestion, NoSinus Pain, No Hoarseness, No sore throat, No Rhinorrhea, NoSwallowing Difficulty Eyes: No Eye Pain, No Swelling, No Redness, No Foreign Body, NoDischarge, No Vision Changes Cardiovascular : No Chest Pain, No SOB, No Dyspnea on Exertion, NoOrthopnea, No Edema, No Palpitations Respiratory : No Cough, No Sputum, No Wheezing, No Smoke Exposure, No Dyspnea Gastrointestinal : no bowel incontinence, No Nausea, No Vomiting, No Diarrhea, NoConstipation, No abdominal Pain, No Hematochezia, No Melena Genitourinary : No Urinary Incontinence, No Urgency, No FlankPain, No Urinary Flow Changes, No Hesitancy Musculoskeletal : low back pain Skin : No Skin Lesions, No rash Neuro : No Weakness, No Numbness, No saddle Paresthesias, No Loss ofConsciousness, No Dizziness, No Headache Psych : No Anxiety/Panic, No Depression, No SI/HI/AH/VH, No Social Issues, Heme/Lymph: No Bruising, No Bleeding,No Lymphadenopathy Endocrine : No Polyuria, No Polydipsia, No Temperature Intolerance <RADHA Cassidy - Last Filed: 06/10/21 19:35> Yes all other systems are reviewed and are negative <RADHA Cassidy - Last Filed: 06/10/21 19:35> PMFSH Past Medical History Medical History: Medical History Anxiety Bipolar 1 disorder Contusion Depression Foot drop, right foot Heart murmur Schizophrenia <RADHA Cassidy - Last Filed: 06/10/21 19:35> Surgical History: Surgical History No pertinent past surgical history <RADHA Cassidy - Last Filed: 06/10/21 19:35> Social History Social History: Social History Alcohol intake: unknown Substance Use Type: Marijuana Advance Directives: Yes Advance Directives Information Provided: Yes Advance Directives on File: No <RADHA Cassidy - Last Filed: 06/10/21 19:35> Physical Exam Vital Signs: Vital Signs: Last Vital Signs Temp 97.2 F 06/10/21 08:15 Pulse 64 06/10/21 08:15 Resp 16 06/10/21 08:15 BP 140/97 H 06/10/21 08:15 Pulse Ox 99 06/10/21 08:15 Body Mass Index 24.3 <RADHA Cassidy - Last Filed: 06/10/21 19:35> Vital Signs: Last Vital Signs Temp 97.2 F 06/10/21 08:15 Pulse 64 06/10/21 08:15 Resp 16 06/10/21 08:15 BP 140/97 H 06/10/21 08:15 Pulse Ox 99 06/10/21 08:15 Body Mass Index 24.3 <Valentín Dobbs MD - Last Filed: 06/11/21 07:01> Const: General: cooperative, no acute distress, well developed, alert and awake <RADHA Cassidy - Last Filed: 06/10/21 19:35> Nutritional Appearance: well nourished <Poonam Adamson [facility] Last Filed: 06/10/21 19:35> Orientation/consciousness: patient oriented x3 <Poonam Adamson [facility] Last Filed: 06/10/21 19:35> Limitations: no limitations <Poonam Adamson [facility] Last Filed: 06/10/21 19:35> Eyes: Conjunctivae: conjunctivae normal <Poonam Adamson [facility] Last Filed: 06/10/21 19:35> Pupils: Equal, round and reactive pupils present <Poonam Adamson [facility] Last Filed: 06/10/21 19:35> EOM: EOMs intact bilaterally <Poonam Adamson [facility] Last Filed: 06/10/21 19:35> Neck: Neck: Yes full ROM, Yes no lymphadenopathy and Yes supple <Poonam Adamson [facility] Last Filed: 06/10/21 19:35> Resp: Effort & Inspection: normal respiratory effort and able to speak in complete sentences <Poonam Adamson [facility] Last Filed: 06/10/21 19:35> Auscultation: clear to auscultation bilaterally, no crackles, no rales, no rhonchi and no wheezes <Poonam Adamson [facility] Last Filed: 06/10/21 19:35> Cardio: Rate: regular rate <Poonam Adamson [facility] Last Filed: 06/10/21 19:35> Rhythm: regular rhythm <Poonam Adamson [facility] Last Filed: 06/10/21 19:35> Heart sounds: S1 normal heart sound present and S2 normal heart sound present <Poonam Adamson [facility] Last Filed: 06/10/21 19:35> GI: Inspection: Yes normal to inspection <Poonam Adamson [facility] Last Filed: 06/10/21 19:35> Palpation (GI): Soft to palpation, nontender, no guarding and not rigid <Poonam Adamson [facility] Last Filed: 06/10/21 19:35> Percussion: Yes normal to percussion <Poonam Adamson [facility] Last Filed: 06/10/21 19:35> Auscultation: normal bowel sounds <RADHA Cassidy Last Filed: 06/10/21 19:35> Back/Spine/Pelvis: Cervical Spine: normal cervical lordosis, No cervical muscular tenderness, No Cervical spine tenderness and No step off deformity <RADHA Cassidy Last Filed: 06/10/21 19:35> Thoracic/Lumbar Spine: straight leg raise negative bilaterally, paraspinal muscle tenderness bilaterally, thoraco-lumbar ROM limited with forward flexion, thoraco-lumbar spasm on the right greater than left, No thoracic spinal tenderness and No lumbar spinal tenderness <RADHA Cassidy - Last Filed: 06/10/21 19:35> Pelvis: no buttock tenderness <RADHA Cassidy Last Filed: 06/10/21 19:35> Skin: General skin exam: no rashes or lesions noted <RADHA Cassidy Last Filed: 06/10/21 19:35> Neuro: General: patient oriented x3, tone normal and moves all extremities <RADHA Cassidy - Last Filed: 06/10/21 19:35> Cranial nerves: Yes Equal, round and reactive pupils present <RADHA Cassidy Last Filed: 06/10/21 19:35> Extrem: General: Yes normal to inspection and Yes full ROM <RADHA Cassidy - Last Filed: 06/10/21 19:35> Psych: Appearance: grossly normal <RADHA Cassidy Last Filed: 06/10/21 19:35> Affect: normal affect <RADHA Cassidy Last Filed: 06/10/21 19:35> Attitude: cooperative <RADHA Cassidy Last Filed: 06/10/21 19:35> Thought process: Normal thought process present <RADHA Cassidy Last Filed: 06/10/21 19:35> Course Course Course Narrative: [age] year male with pain for acute on chronic lymphatic pain that started today. On exam, patient has intact lower extremity motor strength, sensation, deep tendon reflexes, pulses. Patient has no red flag symptoms. Gave lidocaine patch here, prescribed NSAID and muscle relaxant. Gave return precautions. <RADHA Ham Last Filed: 06/10/21 19:35> MDM - Back Pain/Injury Lab Data Labs: Lab Results 06/10/21 Range/Units 09:26 Urine Color YELLOW Urine Appearance CLEAR Urine pH 6.0 (5.0-8.0) Ur Specific [place] 1.025 (1.005-1.025) Urine Protein NEG (NEG-TRACE) MG/DL Urine Glucose (UA) NEG (NEG) MG/DL Urine Ketones NEG (NEG) MG/DL Urine Blood NEG (NEG) Urine Nitrite NEG (NEG) Ur Leukocyte Esterase NEG (NEG) Urine RBC 0 (0) /HPF Urine WBC 0 (0-4) /HPF Ur Squamous Epith Cells NONE /LPF Urine Bacteria NONE /LPF <RADHA Cassidy - Last Filed: 06/10/21 19:35> Lab Results 06/10/21 Range/Units 09:26 Urine Color YELLOW Urine Appearance CLEAR Urine pH 6.0 (5.0-8.0) Ur Specific [place] 1.025 (1.005-1.025) Urine Protein NEG (NEG-TRACE) MG/DL Urine Glucose (UA) NEG (NEG) MG/DL Urine Ketones NEG (NEG) MG/DL Urine Blood NEG (NEG) Urine Nitrite NEG (NEG) Ur Leukocyte Esterase NEG (NEG) Urine RBC 0 (0) /HPF Urine WBC 0 (0-4) /HPF Ur Squamous Epith Cells NONE /LPF Urine Bacteria NONE /LPF <Valentín Dobbs MD - Last Filed: 06/11/21 07:01> Discharge Plan Discharge Clinical Impression: Back pain <RADHA Cassidy - Last Filed: 06/10/21 19:35> Patient Disposition: Home, Self-Care <RADHA Cassidy - Last Filed: 06/10/21 19:35> Instructions: Acute Low Back Pain (ED) <RADHA Cassidy - Last Filed: 06/10/21 19:35> Additional Instructions: Call your primary care provider and have them help you get back on your psychiatric medications. Please leave the lidocaine patch on for only 12 hours, taken off after 12 hours. You may fill the prescriptions I provided, please tell your primary care provider about today's emergency room visit. You have bowel or bladder incontinence, if you have numbness or tingling in your groin, or leg weakness. Please return to the emergency room for any other new or concerning symptoms <RADHA Cassidy - Last Filed: 06/10/21 19:35> Prescriptions: New cyclobenzaprine 10 mg tablet 10 mg PO TID Qty: 9 RF: 0 ketorolac 10 mg tablet 10 mg PO TID PRN (Reason: pain) 5 Days RF: 0 No Action ketorolac 10 mg tablet 10 mg PO Q6H PRN (Reason: pain) 5 Days Qty: 20 RF: 0 naproxen 500 mg tablet 500 mg PO BID PRN (Reason: pain) Qty: 14 RF: 0 cyclobenzaprine 5 mg tablet 5 mg PO TID PRN (Reason: muscle spasm) Qty: 10 RF: 0 (DME) cane Device See Rx Instructions .ROUTE .MEDSUPPLY Qty: 1 RF: 0 cyclobenzaprine 10 mg tablet 10 mg PO BEDTIME PRN (Reason: muscle spasm) Qty: 3 RF: 0 doxycycline monohydrate 100 mg capsule 100 mg PO BID 7 Days Qty: 14 RF: 0 cephalexin [Keflex] 500 mg capsule 500 mg PO QID 7 Days Qty: 28 RF: 0 lidocaine [Lidoderm] 5 % adhesive patch,medicated 1 patch topical DAILY Qty: 15 RF: 0 ibuprofen 600 mg tablet 600 mg PO Q8H PRN (Reason: pain) Qty: 15 RF: 0 cyclobenzaprine 10 mg tablet 10 mg PO TID PRN (Reason: muscle spasm) Qty: 8 RF: 0 lidocaine [Lidoderm] 5 % adhesive patch,medicated 1 patch topical DAILY PRN (Reason: pain) Qty: 1 RF: 0 ibuprofen 400 mg tablet 400 mg PO Q6H PRN (Reason: pain) Qty: 20 RF: 0 omeprazole 40 mg capsule,delayed release(DR/EC) 40 mg PO DAILY Qty: 20 RF: 0 sucralfate [Carafate] 1 gram tablet 1 g PO BID Qty: 30 RF: 0 mupirocin 2 % ointment 1 appl topical BID Qty: 15 RF: 0 omeprazole 20 mg capsule,delayed release(DR/EC) 20 mg PO DAILY Qty: 30 RF: 0 PNV no.170-iron fum-folic acid 27 mg iron- 1 mg tablet 1 tab PO DAILY Qty: 30 RF: 0 cyclobenzaprine 10 mg tablet 10 mg PO TID PRN (Reason: muscle pain or spasm) Qty: 20 RF: 0 lidocaine 5 % adhesive patch,medicated 1 patch topical Q24H Qty: 15 RF: 0 ondansetron 4 mg tablet,disintegrating 4 mg PO Q8H PRN (Reason: nausea and vomiting) Qty: 20 RF: 0 Narcan 4 mg/actuation spray,non-aerosol 4 mg intranasal Q3M PRN (Reason: opioid overdose) Qty: 2 RF: 0 ketorolac 10 mg tablet 10 mg PO Q6H PRN (Reason: pain) 5 Days Qty: 20 RF: 0 ondansetron HCl [Zofran] 4 mg tablet 4 mg PO Q6H PRN (Reason: nausea and vomiting) Qty: 14 RF: 0 loperamide [Anti-Diarrheal (loperamide)] 2 mg tablet 2 mg PO Q4H PRN (Reason: loose stool) Qty: 10 RF: 0 ibuprofen 600 mg tablet 600 mg PO Q6H PRN (Reason: fever or pain) Qty: 20 RF: 0 lidocaine 5 % adhesive patch,medicated 1 patch topical DAILY PRN (Reason: back pain) Qty: 15 RF: 0 oxycodone 5 mg tablet 5 mg PO Q6H PRN (Reason: pain) Qty: 5 RF: 0 ibuprofen 600 mg tablet 600 mg PO Q6H PRN (Reason: pain) Qty: 14 RF: 0 cyclobenzaprine 5 mg tablet 5 mg PO TID PRN (Reason: muscle spasm) Qty: 10 RF: 0 cyclobenzaprine 10 mg tablet 10 mg PO TID PRN (Reason: muscle spasm) Qty: 10 RF: 0 lidocaine [Aspercreme (lidocaine HCl)] 4 % adhesive patch,medicated 1 patch topical BID PRN (Reason: pain) Qty: 10 RF: 0 naproxen 500 mg tablet 500 mg PO BID PRN (Reason: pain) Qty: 20 RF: 0 cyclobenzaprine 10 mg tablet 10 mg PO TID PRN (Reason: pain) Qty: 15 RF: 0 lidocaine HCl 4 % adhesive patch,medicated 1 patch topical BID PRN (Reason: pain) Qty: 30 RF: 0 Atarax 100 mg Tablet 100 mg PO NEEDED PRN (Reason: Anxiety) RF: 0 hydrocortisone [Anusol-HC] 2.5 % cream with perineal applicator 1 applic PA BEDTIME PRN (Reason: pain) Qty: 30 RF: 0 polyethylene glycol 3350 [Miralax] 17 gram/dose powder 17 g PO DAILY Qty: 119 RF: 0 cyclobenzaprine 10 mg tablet 10 mg PO TID PRN (Reason: muscle spasm) Qty: 30 RF: 0 tramadol 50 mg tablet 50 mg PO Q8H PRN (Reason: pain) Qty: 12 RF: 0 cyclobenzaprine 5 mg tablet 5 mg PO TID PRN (Reason: muscle spasm) Qty: 5 RF: 0 cyclobenzaprine 10 mg tablet 10 mg PO TID PRN (Reason: muscle spasm) Qty: 20 RF: 0 ketorolac 10 mg tablet 10 mg PO QID 5 Days Qty: 20 RF: 0 methocarbamol [Robaxin-750] 750 mg tablet 750 mg PO Q8H PRN (Reason: pain, severe) Qty: 10 RF: 0 acetaminophen [Tylenol Extra Strength] 500 mg tablet 500 mg PO Q6H PRN (Reason: pain or fever) Qty: 20 RF: 0 lidocaine [Lidoderm] 5 % adhesive patch,medicated 1 patch topical DAILY MDD remove after 12 hours PRN (Reason: pain) Qty: 30 RF: 0 naproxen 500 mg tablet 500 mg PO BID PRN (Reason: pain) 10 Days Qty: 20 RF: 0 cyclobenzaprine 10 mg tablet 10 mg PO TID PRN (Reason: muscle spasm) Qty: 14 RF: 0 lidocaine 4 % adhesive patch,medicated 1 patch topical DAILY PRN (Reason: pain) Qty: 10 RF: 0 ibuprofen 600 mg tablet 600 mg PO Q6H PRN (Reason: pain) Qty: 30 RF: 0 ketorolac 10 mg tablet 10 mg PO Q8H PRN (Reason: pain) Qty: 10 RF: 0 cyclobenzaprine 10 mg tablet 10 mg PO TID PRN (Reason: muscle spasm) Qty: 10 RF: 0 pantoprazole [Protonix] 20 mg tablet,delayed release (DR/EC) 20 mg PO DAILY Qty: 30 RF: 0 ondansetron 4 mg tablet,disintegrating 4 mg PO Q6-8H PRN (Reason: nausea and vomiting) Qty: 14 RF: 0 cyclobenzaprine 10 mg tablet 10 mg PO TID PRN (Reason: pain) Qty: 18 RF: 0 naproxen 500 mg tablet 500 mg PO BID PRN (Reason: pain) Qty: 20 RF: 0 lidocaine 4 % adhesive patch,medicated 1 patch topical DAILY PRN (Reason: pain) Qty: 10 RF: 0 cyclobenzaprine 10 mg tablet 10 mg PO TID Qty: 10 RF: 0 naproxen [Naprosyn] 500 mg tablet 500 mg PO BID Qty: 20 RF: 0 doxycycline hyclate 100 mg capsule 100 mg PO BID Qty: 20 RF: 0 triamcinolone acetonide 0.025 % ointment 1 appl topical BID Qty: 15 RF: 0 sucralfate [Carafate] 100 mg/mL suspension 10 ml PO BID Qty: 420 RF: 0 <RADHA Cassidy - Last Filed: 06/10/21 19:35> Interventions: ED Discharge Assessment Last Done: 06/10/21 10:48 <RADHA Cassidy - Last Filed: 06/10/21 19:35> Discharge Date/Time: 06/10/21 10:49 <RADHA Cassidy - Last Filed: 06/10/21 19:35>
[2021-06-10] MEDS: Ketorolac Tromethamine 15 MG/ML VIAL IM (10:35)
[2021-06-10] MEDS: Cyclobenzaprine HCl 10 MG TABLET PO (10:36)
[2021-06-10] MEDS: Lidocaine 4 % Patch ADH..PATCH 1 PATCH TRANSDERMA (10:36)
== END 2021-06-10 10:49 | disposition home or self-care (01) ==
PROVIDERS: Physician Assistant; Emergency Provider Emergency Medicine Emergency Medical Services
DX: M54.5 Low back pain (principal); I10 Essential (primary) hypertension; F19.10 Other psychoactive substance abuse, uncomplicated; F12.90 Cannabis use, unspecified, uncomplicated
CPT/HCPCS: 81001; 96372; 99284; J1885

== ENCOUNTER 2021-06-20 18:55 | Emergency (ER) | payer OTHER, SELFPAY ==
--- NOTE | ~2021-06-20 | CT_ITS ---
CT head/brain wo con CLINICAL INFORMATION: Reason for Exam intoxicated and possible head injury. COMPARISON: No prior CT scan available for comparison. TECHNIQUE: Department standard protocol. This CT examination was performed using dose optimization techniques as appropriate, variously including the following: *Automated exposure control *Adjustment of mA and/or kV according to patient size (this includes techniques or standardized protocols for targeted exams where dose is matched to indication/reason for exam; i.e. extremities or head) *Use of iterative reconstruction technique DLP: 692 mGy-cm FINDINGS: CEREBRAL HEMISPHERES: There is no evidence of intra-axial or extra-axial mass, hemorrhage or acute infarct. BRAIN PARENCHYMA: Normal blunt-white matter differentiation. SUBDURAL SPACE: No bleed. BASAL GANGLIA AND PINEAL GLAND: Unremarkable VENTRICLES: Symmetric and normal in size. CEREBELLUM AND BRAINSTEM: No space-occupying mass, hemorrhage or acute infarct. CEREBELLOPONTINE ANGLES: No lesion found. ORBITS: No intraorbital mass. VESSELS: Unremarkable SKULL BASE: Unremarkable INCLUDED SINUSES AT SKULL BASE: Clear SKULL AND SKIN: No fracture or bone lesion found. CT/CT head/brain wo con IMPRESSION: No CT evidence of intracranial space-occupying mass, bleed or infarct.
--- NOTE | ~2021-06-20 | XR_ITS ---
EXAMINATION: XR elbow RT min 3V CLINICAL INFORMATION: Reason for Exam found drunk and injury to right elbow COMPARISON: None available at the time of this dictation. TECHNIQUE: 3 views of the elbow were obtained. FINDINGS: There is no fracture or dislocation. Bone alignments are satisfactory. Surrounding soft tissues are normal. No osteolytic or osteoblastic lesion. XR/XR elbow RT min 3V IMPRESSION: No fracture.
[2021-06-20 19:18] VITALS: BP 130/80; PULSE 110; O2SAT 99; BMI 19.3
[2021-06-20 19:29] VITALS: BP 126/84; PULSE 86; RESP 18; TEMP 36.7; O2SAT 96
--- NOTE | 2021-06-20 19:44 | PC.NURSE ---
report called to inpt RN, pt sent upstairs in stable condition w/ all belongings
--- NOTE | 2021-06-20 19:47 | ED.OVERDOSE ---
HPI - Overdose General Chief Complaint: Overdose Stated Complaint: od Time Seen by Provider: 06/20/21 19:46 Source: patient and EMS Mode of arrival: EMS Limitations: no limitations History of Present Illness HPI Narrative: 36 years old male came in by ambulance for evaluation of unintentional overdose. This is a 36-year-old male known to be drug abuser brought in by ambulance after found in the street unresponsive patient required 8 mg of Narcan intranasally, and patient require chest dropping to response initially patient was agonal respiration but improved with BVM. Patient now admitted he drank 4 B years, used 3 bags of cocaine by sniffing, and used 2 bags of heroin by sniffing also. Patient is complaining of right-sided head pain with superficial abrasion to the right side of the head. Patient also complaining of right elbow pain and swelling. Related Data Home Medications Medication Instructions Recorded Confirmed hydroxyzine HCl 100 mg tablet 100 mg PO NEEDED PRN 08/03/20 08/03/20 Previous Rx's Medication Instructions Recorded hydrocortisone 2.5 % topical cream 1 applic [place] BEDTIME PRN #30 g 08/13/20 with perineal applicator (Anusol-HC) polyethylene glycol 3350 17 17 g PO DAILY #119 g 08/13/20 gram/dose oral powder (Miralax) cyclobenzaprine 10 mg tablet 10 mg PO TID PRN #30 tab 08/15/20 tramadol 50 mg tablet 50 mg PO Q8H PRN #12 tab 08/15/20 ketorolac 10 mg tablet 10 mg PO Q6H PRN 5 Days #20 tab 08/17/20 cane #1 ea 09/01/20 cyclobenzaprine 5 mg tablet 5 mg PO TID PRN #10 tab 09/01/20 naproxen 500 mg tablet 500 mg PO BID PRN #14 tab 09/01/20 cyclobenzaprine 5 mg tablet 5 mg PO TID PRN #5 tab 09/08/20 cyclobenzaprine 10 mg tablet 10 mg PO BEDTIME PRN #3 tab 09/17/20 cyclobenzaprine 10 mg tablet 10 mg PO TID PRN #20 tab 09/22/20 ketorolac 10 mg tablet 10 mg PO QID 5 Days #20 tab 09/22/20 cephalexin 500 mg capsule (Keflex) 500 mg PO QID 7 Days #28 cap 09/26/20 doxycycline monohydrate 100 mg 100 mg PO BID 7 Days #14 cap 09/26/20 capsule cyclobenzaprine 10 mg tablet 10 mg PO TID PRN #8 tab 09/29/20 ibuprofen 600 mg tablet 600 mg PO Q8H PRN #15 tab 09/29/20 lidocaine 5 % topical patch 1 patch TOPICAL DAILY #15 ea 09/29/20 (Lidoderm) acetaminophen 500 mg tablet 500 mg PO Q6H PRN #20 tab 10/04/20 (Tylenol Extra Strength) lidocaine 5 % topical patch 1 patch TOPICAL DAILY PRN #30 ea 10/04/20 (Lidoderm) MDD remove after 12 hours methocarbamol 750 mg tablet 750 mg PO Q8H PRN #10 tab 10/04/20 (Robaxin-750) naproxen 500 mg tablet 500 mg PO BID PRN 10 Days #20 tab 10/04/20 ibuprofen 400 mg tablet 400 mg PO Q6H PRN #20 tab 10/30/20 lidocaine 5 % topical patch 1 patch TOPICAL DAILY PRN #1 ea 10/30/20 (Lidoderm) omeprazole 40 mg capsule,delayed 40 mg PO DAILY #20 cap 11/04/20 release sucralfate 1 gram tablet (Carafate) 1 g PO BID #30 tab 11/04/20 mupirocin 2 % topical ointment 1 appl TOPICAL BID #15 g 12/04/20 cyclobenzaprine 10 mg tablet 10 mg PO TID PRN #14 tab 12/07/20 ibuprofen 600 mg tablet 600 mg PO Q6H PRN #30 tab 12/07/20 lidocaine 4 % topical patch 1 patch TOPICAL DAILY PRN #10 ea 12/07/20 omeprazole 20 mg capsule,delayed 20 mg PO DAILY #30 cap 12/15/20 release vitamins no.170-iron 1 tab PO DAILY #30 tab 12/15/20 fumarate 27 mg-folic acid 1 mg tablet cyclobenzaprine 10 mg tablet 10 mg PO TID PRN #20 tab 12/27/20 lidocaine 5 % topical patch 1 patch TOPICAL Q24H #15 ea 12/27/20 ondansetron 4 mg disintegrating 4 mg PO Q8H PRN #20 tab 01/02/21 tablet naloxone 4 mg/actuation nasal 4 mg INTRANASAL Q3M PRN #2 ea 01/08/21 spray (Narcan) cyclobenzaprine 10 mg tablet 10 mg PO TID PRN #10 tab 01/16/21 ketorolac 10 mg tablet 10 mg PO Q8H PRN #10 tab 01/16/21 ketorolac 10 mg tablet 10 mg PO Q6H PRN 5 Days #20 tab 01/27/21 ibuprofen 600 mg tablet 600 mg PO Q6H PRN #20 tab 02/10/21 loperamide 2 mg tablet 2 mg PO Q4H PRN #10 tab 02/10/21 (Anti-Diarrheal (loperamide)) ondansetron HCl 4 mg tablet 4 mg PO Q6H PRN #14 tab 02/10/21 (Zofran) ondansetron 4 mg disintegrating 4 mg PO Q6-8H PRN #14 tab 02/13/21 tablet pantoprazole 20 mg tablet,delayed 20 mg PO DAILY #30 tab 02/13/21 release (Protonix) cyclobenzaprine 10 mg tablet 10 mg PO TID PRN #18 tab 02/16/21 naproxen 500 mg tablet 500 mg PO BID PRN #20 tab 02/16/21 lidocaine 4 % topical patch 1 patch TOPICAL DAILY PRN #10 ea 02/19/21 cyclobenzaprine 10 mg tablet 10 mg PO TID #10 tab 02/27/21 naproxen 500 mg tablet (Naprosyn) 500 mg PO BID #20 tab 02/27/21 cyclobenzaprine 5 mg tablet 5 mg PO TID PRN #10 tab 03/02/21 ibuprofen 600 mg tablet 600 mg PO Q6H PRN #14 tab 03/02/21 lidocaine 5 % topical patch 1 patch TOPICAL DAILY PRN #15 ea 03/02/21 oxycodone 5 mg tablet 5 mg PO Q6H PRN #5 tab 03/02/21 cyclobenzaprine 10 mg tablet 10 mg PO TID PRN #10 tab 03/28/21 lidocaine 4 % topical patch 1 patch TOPICAL BID PRN #10 ea 03/28/21 (Aspercreme (lidocaine)) doxycycline hyclate 100 mg capsule 100 mg PO BID #20 cap 03/31/21 triamcinolone acetonide 0.025 % 1 appl TOPICAL BID #15 g 04/12/21 topical ointment cyclobenzaprine 10 mg tablet 10 mg PO TID PRN #15 tab 05/04/21 lidocaine HCl 4 % topical patch 1 patch TOPICAL BID PRN #30 ea 05/04/21 naproxen 500 mg tablet 500 mg PO BID PRN #20 tab 05/04/21 sucralfate 100 mg/mL oral 10 ml PO BID #420 ml 05/31/21 suspension (Carafate) cyclobenzaprine 10 mg tablet 10 mg PO TID #9 tab 06/10/21 ketorolac 10 mg tablet 10 mg PO TID PRN 5 Days tab 06/10/21 Allergies Allergy/AdvReac Type Severity Reaction Status Date / Time Penicillins [PCN] Allergy Mild RASH Verified 03/28/21 05:03 silver AdvReac Intermediate rash Verified 03/28/21 05:03 [From TEGADERM AG MESH] Review of Systems Review of Systems: All other systems are reviewed and are negative Constitutional: Reports as per HPI and Reports no additional constitutional complaints Eyes: Reports as per HPI and Reports no additional eye complaints Reports system reviewed and no additional complaints, except as documented Cardiovascular: Reports as per HPI and Reports no additional cardiovascular complaints Respiratory: Reports as per HPI and Reports no additional respiratory complaints Gastrointestinal: Reports as per HPI and Reports no additional gastrointestinal complaints Genitourinary: Reports no additional female genitourinary complaints Musculoskeletal: Reports no additional musculoskeletal complaints Skin/Breast: Reports system reviewed and no additional complaints, except as docu Psychiatric: Reports no additional psychiatric complaints Endocrine: Reports no additional endocrine complaints Hematologic/Lymphatic: Reports no additional hematologic/lymphatic complaints Allergic/Immunologic: Reports no additional allergic/immunologic complaints Reports system reviewed and no additional complaints, except as documented and Reports Abnormal speech present [facility] Past Medical History Medical History Anxiety Bipolar 1 disorder Contusion Depression Foot drop, right foot Heart murmur Schizophrenia Surgical History No pertinent past surgical history Social History Social History Alcohol intake: unknown Substance Use Type: Marijuana Advance Directives: No Physical Exam Vital Signs: Vital Signs: Last Vital Signs Temp 98.1 F 06/20/21 19:29 Pulse 86 06/20/21 19:29 Resp 18 06/20/21 19:29 BP 126/84 06/20/21 19:29 Pulse Ox 96 06/20/21 19:29 Body Mass Index 19.3 Vital signs have been reviewed as appeared to be correct. Blood pressure normal. Heart rate normal. Respiration rate normal. Temperature normal. Oxygen saturation normal. Appearance: Alert. Oriented X3. No acute distress. Head: Normal external exam. Normocephalic. Superficial abrasion to the right side of the forehead. No Hernandez signs noted. No raccoon eyes noted Eyes: PERRLA. EOMI. Conjunctiva and sclera normal. Eyelids normal. ENT: TM's Normal. Pharynx normal. Uvula midline. Moist mucous membranes. No trismus noted. No drooling noted. No muffled voice noted. Neck: Normal inspection. Neck supple. FROM. No adenopathy. Thyroid Normal. No meningeal signs. No neck mass noted. CVS: Normal heart rate and rhythm. Heart sound normal. No murmurs noted. Pulses normal throughout. Respiratory: No respiratory distress. Painless inspiration. Breath sounds normal. No wheezes/rales/rhonchi noted. Chest nontender. No accessory muscle usage noted or decreased air movement noted. Abdomen: Soft and nontender. Bowel sounds normal in all 4 quadrants. No distention noted. No organomegaly noted. No visible injury noted. Back: No CVA tenderness. Full range of motion noted. Skin: Skin warm and dry. Normal skin color. Normal skin turgor. No rashes/lesions/lacerations noted. Extremities: Right elbow tenderness with swelling, superficial abrasion to the right elbow. Neuro: Oriented X 3. Cranial nerve exam: II-XII are grossly intact No motor deficit. No sensory deficit. Reflexes normal. Course Course Course Narrative: Assessment and plan. 36-year-old male with history of drug abuse and alcohol intoxication came min by EMS after was found in the street patient needed Narcan to regain his consciousness by EMS, patient remained awake and responsive in the emergency department. Patient was observed in the emergency department no SI or HI. Will discharge. MDM - Overdose Imaging Data Right elbow x-ray: Radiologist's impression: No fracture. CT scan - head: Radiologist's impression: No acute intracranial pathology. Discharge Plan Discharge Clinical Impression: Drug overdose, Alcohol intoxication, Closed head injury, Contusion of elbow, right Patient Disposition: Home, Self-Care Instructions: Contusion in Adults (ED) Prescriptions: No Action ketorolac 10 mg tablet 10 mg PO Q6H PRN (Reason: pain) 5 Days Qty: 20 RF: 0 naproxen 500 mg tablet 500 mg PO BID PRN (Reason: pain) Qty: 14 RF: 0 cyclobenzaprine 5 mg tablet 5 mg PO TID PRN (Reason: muscle spasm) Qty: 10 RF: 0 (DME) cane Device See Rx Instructions .ROUTE .MEDSUPPLY Qty: 1 RF: 0 cyclobenzaprine 10 mg tablet 10 mg PO BEDTIME PRN (Reason: muscle spasm) Qty: 3 RF: 0 doxycycline monohydrate 100 mg capsule 100 mg PO BID 7 Days Qty: 14 RF: 0 cephalexin [Keflex] 500 mg capsule 500 mg PO QID 7 Days Qty: 28 RF: 0 lidocaine [Lidoderm] 5 % adhesive patch,medicated 1 patch topical DAILY Qty: 15 RF: 0 ibuprofen 600 mg tablet 600 mg PO Q8H PRN (Reason: pain) Qty: 15 RF: 0 cyclobenzaprine 10 mg tablet 10 mg PO TID PRN (Reason: muscle spasm) Qty: 8 RF: 0 lidocaine [Lidoderm] 5 % adhesive patch,medicated 1 patch topical DAILY PRN (Reason: pain) Qty: 1 RF: 0 ibuprofen 400 mg tablet 400 mg PO Q6H PRN (Reason: pain) Qty: 20 RF: 0 omeprazole 40 mg capsule,delayed release(DR/EC) 40 mg PO DAILY Qty: 20 RF: 0 sucralfate [Carafate] 1 gram tablet 1 g PO BID Qty: 30 RF: 0 mupirocin 2 % ointment 1 appl topical BID Qty: 15 RF: 0 omeprazole 20 mg capsule,delayed release(DR/EC) 20 mg PO DAILY Qty: 30 RF: 0 PNV no.170-iron fum-folic acid 27 mg iron- 1 mg tablet 1 tab PO DAILY Qty: 30 RF: 0 cyclobenzaprine 10 mg tablet 10 mg PO TID PRN (Reason: muscle pain or spasm) Qty: 20 RF: 0 lidocaine 5 % adhesive patch,medicated 1 patch topical Q24H Qty: 15 RF: 0 ondansetron 4 mg tablet,disintegrating 4 mg PO Q8H PRN (Reason: nausea and vomiting) Qty: 20 RF: 0 Narcan 4 mg/actuation spray,non-aerosol 4 mg intranasal Q3M PRN (Reason: opioid overdose) Qty: 2 RF: 0 ketorolac 10 mg tablet 10 mg PO Q6H PRN (Reason: pain) 5 Days Qty: 20 RF: 0 ondansetron HCl [Zofran] 4 mg tablet 4 mg PO Q6H PRN (Reason: nausea and vomiting) Qty: 14 RF: 0 loperamide [Anti-Diarrheal (loperamide)] 2 mg tablet 2 mg PO Q4H PRN (Reason: loose stool) Qty: 10 RF: 0 ibuprofen 600 mg tablet 600 mg PO Q6H PRN (Reason: fever or pain) Qty: 20 RF: 0 lidocaine 5 % adhesive patch,medicated 1 patch topical DAILY PRN (Reason: back pain) Qty: 15 RF: 0 oxycodone 5 mg tablet 5 mg PO Q6H PRN (Reason: pain) Qty: 5 RF: 0 ibuprofen 600 mg tablet 600 mg PO Q6H PRN (Reason: pain) Qty: 14 RF: 0 cyclobenzaprine 5 mg tablet 5 mg PO TID PRN (Reason: muscle spasm) Qty: 10 RF: 0 cyclobenzaprine 10 mg tablet 10 mg PO TID PRN (Reason: muscle spasm) Qty: 10 RF: 0 lidocaine [Aspercreme (lidocaine HCl)] 4 % adhesive patch,medicated 1 patch topical BID PRN (Reason: pain) Qty: 10 RF: 0 naproxen 500 mg tablet 500 mg PO BID PRN (Reason: pain) Qty: 20 RF: 0 cyclobenzaprine 10 mg tablet 10 mg PO TID PRN (Reason: pain) Qty: 15 RF: 0 lidocaine HCl 4 % adhesive patch,medicated 1 patch topical BID PRN (Reason: pain) Qty: 30 RF: 0 Atarax 100 mg Tablet 100 mg PO NEEDED PRN (Reason: Anxiety) RF: 0 hydrocortisone [Anusol-HC] 2.5 % cream with perineal applicator 1 applic WI BEDTIME PRN (Reason: pain) Qty: 30 RF: 0 polyethylene glycol 3350 [Miralax] 17 gram/dose powder 17 g PO DAILY Qty: 119 RF: 0 cyclobenzaprine 10 mg tablet 10 mg PO TID PRN (Reason: muscle spasm) Qty: 30 RF: 0 tramadol 50 mg tablet 50 mg PO Q8H PRN (Reason: pain) Qty: 12 RF: 0 cyclobenzaprine 5 mg tablet 5 mg PO TID PRN (Reason: muscle spasm) Qty: 5 RF: 0 cyclobenzaprine 10 mg tablet 10 mg PO TID PRN (Reason: muscle spasm) Qty: 20 RF: 0 ketorolac 10 mg tablet 10 mg PO QID 5 Days Qty: 20 RF: 0 methocarbamol [Robaxin-750] 750 mg tablet 750 mg PO Q8H PRN (Reason: pain, severe) Qty: 10 RF: 0 acetaminophen [Tylenol Extra Strength] 500 mg tablet 500 mg PO Q6H PRN (Reason: pain or fever) Qty: 20 RF: 0 lidocaine [Lidoderm] 5 % adhesive patch,medicated 1 patch topical DAILY MDD remove after 12 hours PRN (Reason: pain) Qty: 30 RF: 0 naproxen 500 mg tablet 500 mg PO BID PRN (Reason: pain) 10 Days Qty: 20 RF: 0 cyclobenzaprine 10 mg tablet 10 mg PO TID PRN (Reason: muscle spasm) Qty: 14 RF: 0 lidocaine 4 % adhesive patch,medicated 1 patch topical DAILY PRN (Reason: pain) Qty: 10 RF: 0 ibuprofen 600 mg tablet 600 mg PO Q6H PRN (Reason: pain) Qty: 30 RF: 0 ketorolac 10 mg tablet 10 mg PO Q8H PRN (Reason: pain) Qty: 10 RF: 0 cyclobenzaprine 10 mg tablet 10 mg PO TID PRN (Reason: muscle spasm) Qty: 10 RF: 0 pantoprazole [Protonix] 20 mg tablet,delayed release (DR/EC) 20 mg PO DAILY Qty: 30 RF: 0 ondansetron 4 mg tablet,disintegrating 4 mg PO Q6-8H PRN (Reason: nausea and vomiting) Qty: 14 RF: 0 cyclobenzaprine 10 mg tablet 10 mg PO TID PRN (Reason: pain) Qty: 18 RF: 0 naproxen 500 mg tablet 500 mg PO BID PRN (Reason: pain) Qty: 20 RF: 0 lidocaine 4 % adhesive patch,medicated 1 patch topical DAILY PRN (Reason: pain) Qty: 10 RF: 0 cyclobenzaprine 10 mg tablet 10 mg PO TID Qty: 10 RF: 0 naproxen [Naprosyn] 500 mg tablet 500 mg PO BID Qty: 20 RF: 0 doxycycline hyclate 100 mg capsule 100 mg PO BID Qty: 20 RF: 0 triamcinolone acetonide 0.025 % ointment 1 appl topical BID Qty: 15 RF: 0 sucralfate [Carafate] 100 mg/mL suspension 10 ml PO BID Qty: 420 RF: 0 cyclobenzaprine 10 mg tablet 10 mg PO TID Qty: 9 RF: 0 ketorolac 10 mg tablet 10 mg PO TID PRN (Reason: pain) 5 Days RF: 0 Referrals: Physician,Unknown [Primary Care Provider] - 2 days Interventions: Admission Worksheet (ED) Last Done: 06/20/21 19:41
== END 2021-06-20 21:37 | disposition home or self-care (01) ==
PROVIDERS: Emergency Provider Emergency Medicine
DX: T40.1X1A Poisoning by heroin, accidental (unintentional), initial encounter (principal); T40.5X1A Poisoning by cocaine, accidental (unintentional), initial encounter; R40.4 Transient alteration of awareness; F11.10 Opioid abuse, uncomplicated; F14.10 Cocaine abuse, uncomplicated; F10.120 Alcohol abuse with intoxication, uncomplicated; Y90.9 Presence of alcohol in blood, level not specified; S09.90XA Unspecified injury of head, initial encounter; S00.81XA Abrasion of other part of head, initial encounter; S50.01XA Contusion of right elbow, initial encounter; X58.XXXA Exposure to other specified factors, initial encounter; I10 Essential (primary) hypertension; F20.9 Schizophrenia, unspecified; Y93.9 Activity, unspecified; Y92.480 Sidewalk as the place of occurrence of the external cause; Y99.9 Unspecified external cause status; Z79.899 Other long term (current) drug therapy
CPT/HCPCS: 70450; 73080; 99284; 99285

== ENCOUNTER 2021-07-02 06:01 | Emergency (ER) | payer OTHER, SELFPAY ==
[2021-07-02 06:33] VITALS: BP 141/85; PULSE 98; RESP 20; TEMP 36.6; O2SAT 98; BMI 21.2
--- NOTE | 2021-07-02 07:10 | ED.SKABFB ---
HPI - Skin/Abscess/Foreign Bdy General Chief complaint: Skin/Abscess/Foreign Body Stated complaint: Lump Time Seen by Provider: 07/02/21 07:10 Source: patient Mode of arrival: ambulatory Limitations: no limitations History of Present Illness MD complaint: lesion Onset (ago): day(s) (2) Tetanus up to date: yes Location: generalized (abdomen) Severity: mild Relieving factors: none Exacerbating factors: none Context: other (popped a pimple at home) Associated symptoms: denies other symptoms Treatments prior to arrival: attempted to drain pus at home Related Data Home Medications Medication Instructions Recorded Confirmed hydroxyzine HCl 100 mg tablet 100 mg PO NEEDED PRN 08/03/20 08/03/20 Previous Rx's Medication Instructions Recorded hydrocortisone 2.5 % topical cream 1 applic AL BEDTIME PRN #30 g 08/13/20 with perineal applicator (Anusol-HC) polyethylene glycol 3350 17 17 g PO DAILY #119 g 08/13/20 gram/dose oral powder (Miralax) cyclobenzaprine 10 mg tablet 10 mg PO TID PRN #30 tab 08/15/20 tramadol 50 mg tablet 50 mg PO Q8H PRN #12 tab 08/15/20 ketorolac 10 mg tablet 10 mg PO Q6H PRN 5 Days #20 tab 08/17/20 cane #1 ea 09/01/20 cyclobenzaprine 5 mg tablet 5 mg PO TID PRN #10 tab 09/01/20 naproxen 500 mg tablet 500 mg PO BID PRN #14 tab 09/01/20 cyclobenzaprine 5 mg tablet 5 mg PO TID PRN #5 tab 09/08/20 cyclobenzaprine 10 mg tablet 10 mg PO BEDTIME PRN #3 tab 09/17/20 cyclobenzaprine 10 mg tablet 10 mg PO TID PRN #20 tab 09/22/20 ketorolac 10 mg tablet 10 mg PO QID 5 Days #20 tab 09/22/20 cephalexin 500 mg capsule (Keflex) 500 mg PO QID 7 Days #28 cap 09/26/20 doxycycline monohydrate 100 mg 100 mg PO BID 7 Days #14 cap 09/26/20 capsule cyclobenzaprine 10 mg tablet 10 mg PO TID PRN #8 tab 09/29/20 ibuprofen 600 mg tablet 600 mg PO Q8H PRN #15 tab 09/29/20 lidocaine 5 % topical patch 1 patch TOPICAL DAILY #15 ea 09/29/20 (Lidoderm) acetaminophen 500 mg tablet 500 mg PO Q6H PRN #20 tab 10/04/20 (Tylenol Extra Strength) lidocaine 5 % topical patch 1 patch TOPICAL DAILY PRN #30 ea 10/04/20 (Lidoderm) MDD remove after 12 hours methocarbamol 750 mg tablet 750 mg PO Q8H PRN #10 tab 10/04/20 (Robaxin-750) naproxen 500 mg tablet 500 mg PO BID PRN 10 Days #20 tab 10/04/20 ibuprofen 400 mg tablet 400 mg PO Q6H PRN #20 tab 10/30/20 lidocaine 5 % topical patch 1 patch TOPICAL DAILY PRN #1 ea 10/30/20 (Lidoderm) omeprazole 40 mg capsule,delayed 40 mg PO DAILY #20 cap 11/04/20 release sucralfate 1 gram tablet (Carafate) 1 g PO BID #30 tab 11/04/20 mupirocin 2 % topical ointment 1 appl TOPICAL BID #15 g 12/04/20 cyclobenzaprine 10 mg tablet 10 mg PO TID PRN #14 tab 12/07/20 ibuprofen 600 mg tablet 600 mg PO Q6H PRN #30 tab 12/07/20 lidocaine 4 % topical patch 1 patch TOPICAL DAILY PRN #10 ea 12/07/20 omeprazole 20 mg capsule,delayed 20 mg PO DAILY #30 cap 12/15/20 release vitamins no.170-iron 1 tab PO DAILY #30 tab 12/15/20 fumarate 27 mg-folic acid 1 mg tablet cyclobenzaprine 10 mg tablet 10 mg PO TID PRN #20 tab 12/27/20 lidocaine 5 % topical patch 1 patch TOPICAL Q24H #15 ea 12/27/20 ondansetron 4 mg disintegrating 4 mg PO Q8H PRN #20 tab 01/02/21 tablet naloxone 4 mg/actuation nasal 4 mg INTRANASAL Q3M PRN #2 ea 01/08/21 spray (Narcan) cyclobenzaprine 10 mg tablet 10 mg PO TID PRN #10 tab 01/16/21 ketorolac 10 mg tablet 10 mg PO Q8H PRN #10 tab 01/16/21 ketorolac 10 mg tablet 10 mg PO Q6H PRN 5 Days #20 tab 01/27/21 ibuprofen 600 mg tablet 600 mg PO Q6H PRN #20 tab 02/10/21 loperamide 2 mg tablet 2 mg PO Q4H PRN #10 tab 02/10/21 (Anti-Diarrheal (loperamide)) ondansetron HCl 4 mg tablet 4 mg PO Q6H PRN #14 tab 02/10/21 (Zofran) ondansetron 4 mg disintegrating 4 mg PO Q6-8H PRN #14 tab 02/13/21 tablet pantoprazole 20 mg tablet,delayed 20 mg PO DAILY #30 tab 02/13/21 release (Protonix) cyclobenzaprine 10 mg tablet 10 mg PO TID PRN #18 tab 02/16/21 naproxen 500 mg tablet 500 mg PO BID PRN #20 tab 02/16/21 lidocaine 4 % topical patch 1 patch TOPICAL DAILY PRN #10 ea 02/19/21 cyclobenzaprine 10 mg tablet 10 mg PO TID #10 tab 02/27/21 naproxen 500 mg tablet (Naprosyn) 500 mg PO BID #20 tab 02/27/21 cyclobenzaprine 5 mg tablet 5 mg PO TID PRN #10 tab 03/02/21 ibuprofen 600 mg tablet 600 mg PO Q6H PRN #14 tab 03/02/21 lidocaine 5 % topical patch 1 patch TOPICAL DAILY PRN #15 ea 03/02/21 oxycodone 5 mg tablet 5 mg PO Q6H PRN #5 tab 03/02/21 cyclobenzaprine 10 mg tablet 10 mg PO TID PRN #10 tab 03/28/21 lidocaine 4 % topical patch 1 patch TOPICAL BID PRN #10 ea 03/28/21 (Aspercreme (lidocaine)) doxycycline hyclate 100 mg capsule 100 mg PO BID #20 cap 03/31/21 triamcinolone acetonide 0.025 % 1 appl TOPICAL BID #15 g 04/12/21 topical ointment cyclobenzaprine 10 mg tablet 10 mg PO TID PRN #15 tab 05/04/21 lidocaine HCl 4 % topical patch 1 patch TOPICAL BID PRN #30 ea 05/04/21 naproxen 500 mg tablet 500 mg PO BID PRN #20 tab 05/04/21 sucralfate 100 mg/mL oral 10 ml PO BID #420 ml 05/31/21 suspension (Carafate) cyclobenzaprine 10 mg tablet 10 mg PO TID #9 tab 06/10/21 ketorolac 10 mg tablet 10 mg PO TID PRN 5 Days tab 06/10/21 Allergies Allergy/AdvReac Type Severity Reaction Status Date / Time Penicillins [PCN] Allergy Mild RASH Verified 03/28/21 05:03 silver AdvReac Intermediate rash Verified 03/28/21 05:03 [From [employer] AG MESH] Review of Systems Review of Systems: Constitutional : No Fever, No Chills ENT/Mouth : No sore throat, No Rhinorrhea Eyes: No Eye Pain, No Swelling, No Redness Cardiovascular : No Chest Pain, No SOB Respiratory : No Cough, No Sputum Gastrointestinal : No Nausea, No Vomiting, No Diarrhea, No abdominal Pain Genitourinary : No Dysuria, No Hematuria Musculoskeletal : No joint pain, No Myalgias, No Joint Swelling Skin : pos Skin Lesions, no skin rash PMFSH Past Medical History Medical History Anxiety Bipolar 1 disorder Contusion Depression Foot drop, right foot Heart murmur Schizophrenia Surgical History No pertinent past surgical history Social History Social History Alcohol intake: unknown Substance Use Type: Marijuana Advance Directives: No Physical Exam Vital Signs: Vital Signs: Last Vital Signs Temp 97.8 F 07/02/21 06:33 Pulse 98 07/02/21 06:33 Resp 20 07/02/21 06:33 BP 141/85 H 07/02/21 06:33 Pulse Ox 98 07/02/21 06:33 Body Mass Index 21.2 Appearance: Alert. Oriented X3. No acute distress. Eyes: Pupils equal, round and reactive to light. ENT: Pharynx normal. Neck: Normal inspection. Neck supple. CVS: Normal heart rate and rhythm. Pulses normal. Respiratory: No respiratory distress. Breath sounds normal. Abdomen: Soft and nontender. R side of abdomen small punctate area that was a pimple no mass , erythema, drainage, fluctuance felt Skin: Skin warm and dry. Normal skin color. Normal skin turgor. Extremities: No lower extremity edema. No calf ttp Neuro: Oriented X 3. No motor deficit. No sensory deficit. MDM - Skin/Abscess/Foreign Bdy MDM Narrative Medical decision making narrative: 36 yo male with hx of substance abuse has pimple to R abdomen - no signs of cellulitis or abscess he already popped it at home - applied dressing and bacitracin instructed him on wound care Discharge Plan Discharge Clinical Impression: Skin pimple Patient Disposition: Home, Self-Care Instructions: Furunculosis and Carbunculosis (ED) Additional Instructions: return to ED for any worsening symptoms or concerns cover with bandage apply neosporin daily Prescriptions: No Action ketorolac 10 mg tablet 10 mg PO Q6H PRN (Reason: pain) 5 Days Qty: 20 RF: 0 naproxen 500 mg tablet 500 mg PO BID PRN (Reason: pain) Qty: 14 RF: 0 cyclobenzaprine 5 mg tablet 5 mg PO TID PRN (Reason: muscle spasm) Qty: 10 RF: 0 (DME) cane Device See Rx Instructions .ROUTE .MEDSUPPLY Qty: 1 RF: 0 cyclobenzaprine 10 mg tablet 10 mg PO BEDTIME PRN (Reason: muscle spasm) Qty: 3 RF: 0 doxycycline monohydrate 100 mg capsule 100 mg PO BID 7 Days Qty: 14 RF: 0 cephalexin [Keflex] 500 mg capsule 500 mg PO QID 7 Days Qty: 28 RF: 0 lidocaine [Lidoderm] 5 % adhesive patch,medicated 1 patch topical DAILY Qty: 15 RF: 0 ibuprofen 600 mg tablet 600 mg PO Q8H PRN (Reason: pain) Qty: 15 RF: 0 cyclobenzaprine 10 mg tablet 10 mg PO TID PRN (Reason: muscle spasm) Qty: 8 RF: 0 lidocaine [Lidoderm] 5 % adhesive patch,medicated 1 patch topical DAILY PRN (Reason: pain) Qty: 1 RF: 0 ibuprofen 400 mg tablet 400 mg PO Q6H PRN (Reason: pain) Qty: 20 RF: 0 omeprazole 40 mg capsule,delayed release(DR/EC) 40 mg PO DAILY Qty: 20 RF: 0 sucralfate [Carafate] 1 gram tablet 1 g PO BID Qty: 30 RF: 0 mupirocin 2 % ointment 1 appl topical BID Qty: 15 RF: 0 omeprazole 20 mg capsule,delayed release(DR/EC) 20 mg PO DAILY Qty: 30 RF: 0 PNV no.170-iron fum-folic acid 27 mg iron- 1 mg tablet 1 tab PO DAILY Qty: 30 RF: 0 cyclobenzaprine 10 mg tablet 10 mg PO TID PRN (Reason: muscle pain or spasm) Qty: 20 RF: 0 lidocaine 5 % adhesive patch,medicated 1 patch topical Q24H Qty: 15 RF: 0 ondansetron 4 mg tablet,disintegrating 4 mg PO Q8H PRN (Reason: nausea and vomiting) Qty: 20 RF: 0 Narcan 4 mg/actuation spray,non-aerosol 4 mg intranasal Q3M PRN (Reason: opioid overdose) Qty: 2 RF: 0 ketorolac 10 mg tablet 10 mg PO Q6H PRN (Reason: pain) 5 Days Qty: 20 RF: 0 ondansetron HCl [Zofran] 4 mg tablet 4 mg PO Q6H PRN (Reason: nausea and vomiting) Qty: 14 RF: 0 loperamide [Anti-Diarrheal (loperamide)] 2 mg tablet 2 mg PO Q4H PRN (Reason: loose stool) Qty: 10 RF: 0 ibuprofen 600 mg tablet 600 mg PO Q6H PRN (Reason: fever or pain) Qty: 20 RF: 0 lidocaine 5 % adhesive patch,medicated 1 patch topical DAILY PRN (Reason: back pain) Qty: 15 RF: 0 oxycodone 5 mg tablet 5 mg PO Q6H PRN (Reason: pain) Qty: 5 RF: 0 ibuprofen 600 mg tablet 600 mg PO Q6H PRN (Reason: pain) Qty: 14 RF: 0 cyclobenzaprine 5 mg tablet 5 mg PO TID PRN (Reason: muscle spasm) Qty: 10 RF: 0 cyclobenzaprine 10 mg tablet 10 mg PO TID PRN (Reason: muscle spasm) Qty: 10 RF: 0 lidocaine [Aspercreme (lidocaine HCl)] 4 % adhesive patch,medicated 1 patch topical BID PRN (Reason: pain) Qty: 10 RF: 0 naproxen 500 mg tablet 500 mg PO BID PRN (Reason: pain) Qty: 20 RF: 0 cyclobenzaprine 10 mg tablet 10 mg PO TID PRN (Reason: pain) Qty: 15 RF: 0 lidocaine HCl 4 % adhesive patch,medicated 1 patch topical BID PRN (Reason: pain) Qty: 30 RF: 0 Atarax 100 mg Tablet 100 mg PO NEEDED PRN (Reason: Anxiety) RF: 0 hydrocortisone [Anusol-HC] 2.5 % cream with perineal applicator 1 applic AL BEDTIME PRN (Reason: pain) Qty: 30 RF: 0 polyethylene glycol 3350 [Miralax] 17 gram/dose powder 17 g PO DAILY Qty: 119 RF: 0 cyclobenzaprine 10 mg tablet 10 mg PO TID PRN (Reason: muscle spasm) Qty: 30 RF: 0 tramadol 50 mg tablet 50 mg PO Q8H PRN (Reason: pain) Qty: 12 RF: 0 cyclobenzaprine 5 mg tablet 5 mg PO TID PRN (Reason: muscle spasm) Qty: 5 RF: 0 cyclobenzaprine 10 mg tablet 10 mg PO TID PRN (Reason: muscle spasm) Qty: 20 RF: 0 ketorolac 10 mg tablet 10 mg PO QID 5 Days Qty: 20 RF: 0 methocarbamol [Robaxin-750] 750 mg tablet 750 mg PO Q8H PRN (Reason: pain, severe) Qty: 10 RF: 0 acetaminophen [Tylenol Extra Strength] 500 mg tablet 500 mg PO Q6H PRN (Reason: pain or fever) Qty: 20 RF: 0 lidocaine [Lidoderm] 5 % adhesive patch,medicated 1 patch topical DAILY MDD remove after 12 hours PRN (Reason: pain) Qty: 30 RF: 0 naproxen 500 mg tablet 500 mg PO BID PRN (Reason: pain) 10 Days Qty: 20 RF: 0 cyclobenzaprine 10 mg tablet 10 mg PO TID PRN (Reason: muscle spasm) Qty: 14 RF: 0 lidocaine 4 % adhesive patch,medicated 1 patch topical DAILY PRN (Reason: pain) Qty: 10 RF: 0 ibuprofen 600 mg tablet 600 mg PO Q6H PRN (Reason: pain) Qty: 30 RF: 0 ketorolac 10 mg tablet 10 mg PO Q8H PRN (Reason: pain) Qty: 10 RF: 0 cyclobenzaprine 10 mg tablet 10 mg PO TID PRN (Reason: muscle spasm) Qty: 10 RF: 0 pantoprazole [Protonix] 20 mg tablet,delayed release (DR/EC) 20 mg PO DAILY Qty: 30 RF: 0 ondansetron 4 mg tablet,disintegrating 4 mg PO Q6-8H PRN (Reason: nausea and vomiting) Qty: 14 RF: 0 cyclobenzaprine 10 mg tablet 10 mg PO TID PRN (Reason: pain) Qty: 18 RF: 0 naproxen 500 mg tablet 500 mg PO BID PRN (Reason: pain) Qty: 20 RF: 0 lidocaine 4 % adhesive patch,medicated 1 patch topical DAILY PRN (Reason: pain) Qty: 10 RF: 0 cyclobenzaprine 10 mg tablet 10 mg PO TID Qty: 10 RF: 0 naproxen [Naprosyn] 500 mg tablet 500 mg PO BID Qty: 20 RF: 0 doxycycline hyclate 100 mg capsule 100 mg PO BID Qty: 20 RF: 0 triamcinolone acetonide 0.025 % ointment 1 appl topical BID Qty: 15 RF: 0 sucralfate [Carafate] 100 mg/mL suspension 10 ml PO BID Qty: 420 RF: 0 cyclobenzaprine 10 mg tablet 10 mg PO TID Qty: 9 RF: 0 ketorolac 10 mg tablet 10 mg PO TID PRN (Reason: pain) 5 Days RF: 0
[2021-07-02 07:19] VITALS: BP 132/77; PULSE 73; RESP 18; TEMP 36.3; O2SAT 98; BMI 22.8
--- NOTE | 2021-07-02 07:50 | PC.NURSE ---
UPON ARRIVAL TO BED, PT EXAMINED BY DR LIVE. SMALL PIMPLE NOTED TO RIGHT FLANK. NO REDNESS. NO OBVIOUS S/S OF DISTRESS BY PATIENT. PT REPORTS IT'S KIND OF ITCHY . PLAN IS FOR DC HOME AFTER EVAL. PT AGREEABLE TO PLAN.
== END 2021-07-02 07:23 | disposition home or self-care (01) ==
PROVIDERS: Emergency Provider Emergency Medicine
DX: R23.8 Other skin changes (principal); F19.10 Other psychoactive substance abuse, uncomplicated; I10 Essential (primary) hypertension
CPT/HCPCS: 99283

== ENCOUNTER 2021-07-08 21:27 | Emergency (ER) | payer OTHER, SELFPAY ==
[2021-07-08 21:30] VITALS: BP 112/60; PULSE 84; RESP 18; TEMP 36.9; O2SAT 100; BMI 22.8
--- NOTE | 2021-07-08 22:17 | ED.WOUNDLAC ---
HPI - Wound/Laceration General Chief Complaint: Wound/Laceration Stated Complaint: work inj Time Seen by Provider: 07/08/21 21:45 Source: patient Mode of arrival: ambulatory Limitations: no limitations History of Present Illness HPI narrative: Patient have multiple abrasions on the right hand got abraded at work seems to be slightly infected with redness around it. No fever no other injuries Related Data Home Medications Medication Instructions Recorded Confirmed hydroxyzine HCl 100 mg tablet 100 mg PO NEEDED PRN 08/03/20 08/03/20 Previous Rx's Medication Instructions Recorded hydrocortisone 2.5 % topical cream 1 applic [place] BEDTIME PRN #30 g 08/13/20 with perineal applicator (Anusol-HC) polyethylene glycol 3350 17 17 g PO DAILY #119 g 08/13/20 gram/dose oral powder (Miralax) cyclobenzaprine 10 mg tablet 10 mg PO TID PRN #30 tab 08/15/20 tramadol 50 mg tablet 50 mg PO Q8H PRN #12 tab 08/15/20 ketorolac 10 mg tablet 10 mg PO Q6H PRN 5 Days #20 tab 08/17/20 cane #1 ea 09/01/20 cyclobenzaprine 5 mg tablet 5 mg PO TID PRN #10 tab 09/01/20 naproxen 500 mg tablet 500 mg PO BID PRN #14 tab 09/01/20 cyclobenzaprine 5 mg tablet 5 mg PO TID PRN #5 tab 09/08/20 cyclobenzaprine 10 mg tablet 10 mg PO BEDTIME PRN #3 tab 09/17/20 cyclobenzaprine 10 mg tablet 10 mg PO TID PRN #20 tab 09/22/20 ketorolac 10 mg tablet 10 mg PO QID 5 Days #20 tab 09/22/20 cephalexin 500 mg capsule (Keflex) 500 mg PO QID 7 Days #28 cap 09/26/20 doxycycline monohydrate 100 mg 100 mg PO BID 7 Days #14 cap 09/26/20 capsule cyclobenzaprine 10 mg tablet 10 mg PO TID PRN #8 tab 09/29/20 ibuprofen 600 mg tablet 600 mg PO Q8H PRN #15 tab 09/29/20 lidocaine 5 % topical patch 1 patch TOPICAL DAILY #15 ea 09/29/20 (Lidoderm) acetaminophen 500 mg tablet 500 mg PO Q6H PRN #20 tab 10/04/20 (Tylenol Extra Strength) lidocaine 5 % topical patch 1 patch TOPICAL DAILY PRN #30 ea 10/04/20 (Lidoderm) MDD remove after 12 hours methocarbamol 750 mg tablet 750 mg PO Q8H PRN #10 tab 10/04/20 (Robaxin-750) naproxen 500 mg tablet 500 mg PO BID PRN 10 Days #20 tab 10/04/20 ibuprofen 400 mg tablet 400 mg PO Q6H PRN #20 tab 10/30/20 lidocaine 5 % topical patch 1 patch TOPICAL DAILY PRN #1 ea 10/30/20 (Lidoderm) omeprazole 40 mg capsule,delayed 40 mg PO DAILY #20 cap 11/04/20 release sucralfate 1 gram tablet (Carafate) 1 g PO BID #30 tab 11/04/20 mupirocin 2 % topical ointment 1 appl TOPICAL BID #15 g 12/04/20 cyclobenzaprine 10 mg tablet 10 mg PO TID PRN #14 tab 12/07/20 ibuprofen 600 mg tablet 600 mg PO Q6H PRN #30 tab 12/07/20 lidocaine 4 % topical patch 1 patch TOPICAL DAILY PRN #10 ea 12/07/20 omeprazole 20 mg capsule,delayed 20 mg PO DAILY #30 cap 12/15/20 release vitamins no.170-iron 1 tab PO DAILY #30 tab 12/15/20 fumarate 27 mg-folic acid 1 mg tablet cyclobenzaprine 10 mg tablet 10 mg PO TID PRN #20 tab 12/27/20 lidocaine 5 % topical patch 1 patch TOPICAL Q24H #15 ea 12/27/20 ondansetron 4 mg disintegrating 4 mg PO Q8H PRN #20 tab 01/02/21 tablet naloxone 4 mg/actuation nasal 4 mg INTRANASAL Q3M PRN #2 ea 01/08/21 spray (Narcan) cyclobenzaprine 10 mg tablet 10 mg PO TID PRN #10 tab 01/16/21 ketorolac 10 mg tablet 10 mg PO Q8H PRN #10 tab 01/16/21 ketorolac 10 mg tablet 10 mg PO Q6H PRN 5 Days #20 tab 01/27/21 ibuprofen 600 mg tablet 600 mg PO Q6H PRN #20 tab 02/10/21 loperamide 2 mg tablet 2 mg PO Q4H PRN #10 tab 02/10/21 (Anti-Diarrheal (loperamide)) ondansetron HCl 4 mg tablet 4 mg PO Q6H PRN #14 tab 02/10/21 (Zofran) ondansetron 4 mg disintegrating 4 mg PO Q6-8H PRN #14 tab 02/13/21 tablet pantoprazole 20 mg tablet,delayed 20 mg PO DAILY #30 tab 02/13/21 release (Protonix) cyclobenzaprine 10 mg tablet 10 mg PO TID PRN #18 tab 02/16/21 naproxen 500 mg tablet 500 mg PO BID PRN #20 tab 02/16/21 lidocaine 4 % topical patch 1 patch TOPICAL DAILY PRN #10 ea 02/19/21 cyclobenzaprine 10 mg tablet 10 mg PO TID #10 tab 02/27/21 naproxen 500 mg tablet (Naprosyn) 500 mg PO BID #20 tab 02/27/21 cyclobenzaprine 5 mg tablet 5 mg PO TID PRN #10 tab 03/02/21 ibuprofen 600 mg tablet 600 mg PO Q6H PRN #14 tab 03/02/21 lidocaine 5 % topical patch 1 patch TOPICAL DAILY PRN #15 ea 03/02/21 oxycodone 5 mg tablet 5 mg PO Q6H PRN #5 tab 03/02/21 cyclobenzaprine 10 mg tablet 10 mg PO TID PRN #10 tab 03/28/21 lidocaine 4 % topical patch 1 patch TOPICAL BID PRN #10 ea 03/28/21 (Aspercreme (lidocaine)) doxycycline hyclate 100 mg capsule 100 mg PO BID #20 cap 03/31/21 triamcinolone acetonide 0.025 % 1 appl TOPICAL BID #15 g 04/12/21 topical ointment cyclobenzaprine 10 mg tablet 10 mg PO TID PRN #15 tab 05/04/21 lidocaine HCl 4 % topical patch 1 patch TOPICAL BID PRN #30 ea 05/04/21 naproxen 500 mg tablet 500 mg PO BID PRN #20 tab 05/04/21 sucralfate 100 mg/mL oral 10 ml PO BID #420 ml 05/31/21 suspension (Carafate) cyclobenzaprine 10 mg tablet 10 mg PO TID #9 tab 06/10/21 ketorolac 10 mg tablet 10 mg PO TID PRN 5 Days tab 06/10/21 doxycycline hyclate 100 mg tablet 100 mg PO BID #20 tab 07/08/21 Allergies Allergy/AdvReac Type Severity Reaction Status Date / Time Penicillins [PCN] Allergy Mild RASH Verified 03/28/21 05:03 silver AdvReac Intermediate rash Verified 03/28/21 05:03 [From TEGADERM AG MESH] Review of Systems Review of Systems: Yes all other systems are reviewed and are negative [facility]LY [facility] Past Medical History Medical History Anxiety Bipolar 1 disorder Contusion Depression Foot drop, right foot Heart murmur Schizophrenia Surgical History No pertinent past surgical history Social History Social History Alcohol intake: unknown Substance Use Type: Marijuana Advance Directives: No Advance Directives Information Provided: No Physical Exam Vital Signs: Vital Signs: Last Vital Signs Temp 98.5 F 07/08/21 21:30 Pulse 84 07/08/21 21:30 Resp 18 07/08/21 21:30 BP 112/60 07/08/21 21:30 Pulse Ox 100 07/08/21 21:30 Body Mass Index 22.8 Extrem: Hand/finger images: 1. Superficial abrasion with slight erythema MDM - Wound/Laceration MDM Narrative Medical decision making narrative: Slightly infected abrasions will discharge patient home on doxycycline Discharge Plan Discharge Clinical Impression: Abrasion Patient Disposition: Home, Self-Care Instructions: Abrasion (ED) Additional Instructions: Local care as advised take antibiotics as prescribed Prescriptions: New doxycycline hyclate 100 mg tablet 100 mg PO BID Qty: 20 RF: 0 No Action ketorolac 10 mg tablet 10 mg PO Q6H PRN (Reason: pain) 5 Days Qty: 20 RF: 0 naproxen 500 mg tablet 500 mg PO BID PRN (Reason: pain) Qty: 14 RF: 0 cyclobenzaprine 5 mg tablet 5 mg PO TID PRN (Reason: muscle spasm) Qty: 10 RF: 0 (DME) cane Device See Rx Instructions .ROUTE .MEDSUPPLY Qty: 1 RF: 0 cyclobenzaprine 10 mg tablet 10 mg PO BEDTIME PRN (Reason: muscle spasm) Qty: 3 RF: 0 doxycycline monohydrate 100 mg capsule 100 mg PO BID 7 Days Qty: 14 RF: 0 cephalexin [Keflex] 500 mg capsule 500 mg PO QID 7 Days Qty: 28 RF: 0 lidocaine [Lidoderm] 5 % adhesive patch,medicated 1 patch topical DAILY Qty: 15 RF: 0 ibuprofen 600 mg tablet 600 mg PO Q8H PRN (Reason: pain) Qty: 15 RF: 0 cyclobenzaprine 10 mg tablet 10 mg PO TID PRN (Reason: muscle spasm) Qty: 8 RF: 0 lidocaine [Lidoderm] 5 % adhesive patch,medicated 1 patch topical DAILY PRN (Reason: pain) Qty: 1 RF: 0 ibuprofen 400 mg tablet 400 mg PO Q6H PRN (Reason: pain) Qty: 20 RF: 0 omeprazole 40 mg capsule,delayed release(DR/EC) 40 mg PO DAILY Qty: 20 RF: 0 sucralfate [Carafate] 1 gram tablet 1 g PO BID Qty: 30 RF: 0 mupirocin 2 % ointment 1 appl topical BID Qty: 15 RF: 0 omeprazole 20 mg capsule,delayed release(DR/EC) 20 mg PO DAILY Qty: 30 RF: 0 PNV no.170-iron fum-folic acid 27 mg iron- 1 mg tablet 1 tab PO DAILY Qty: 30 RF: 0 cyclobenzaprine 10 mg tablet 10 mg PO TID PRN (Reason: muscle pain or spasm) Qty: 20 RF: 0 lidocaine 5 % adhesive patch,medicated 1 patch topical Q24H Qty: 15 RF: 0 ondansetron 4 mg tablet,disintegrating 4 mg PO Q8H PRN (Reason: nausea and vomiting) Qty: 20 RF: 0 Narcan 4 mg/actuation spray,non-aerosol 4 mg intranasal Q3M PRN (Reason: opioid overdose) Qty: 2 RF: 0 ketorolac 10 mg tablet 10 mg PO Q6H PRN (Reason: pain) 5 Days Qty: 20 RF: 0 ondansetron HCl [Zofran] 4 mg tablet 4 mg PO Q6H PRN (Reason: nausea and vomiting) Qty: 14 RF: 0 loperamide [Anti-Diarrheal (loperamide)] 2 mg tablet 2 mg PO Q4H PRN (Reason: loose stool) Qty: 10 RF: 0 ibuprofen 600 mg tablet 600 mg PO Q6H PRN (Reason: fever or pain) Qty: 20 RF: 0 lidocaine 5 % adhesive patch,medicated 1 patch topical DAILY PRN (Reason: back pain) Qty: 15 RF: 0 oxycodone 5 mg tablet 5 mg PO Q6H PRN (Reason: pain) Qty: 5 RF: 0 ibuprofen 600 mg tablet 600 mg PO Q6H PRN (Reason: pain) Qty: 14 RF: 0 cyclobenzaprine 5 mg tablet 5 mg PO TID PRN (Reason: muscle spasm) Qty: 10 RF: 0 cyclobenzaprine 10 mg tablet 10 mg PO TID PRN (Reason: muscle spasm) Qty: 10 RF: 0 lidocaine [Aspercreme (lidocaine HCl)] 4 % adhesive patch,medicated 1 patch topical BID PRN (Reason: pain) Qty: 10 RF: 0 naproxen 500 mg tablet 500 mg PO BID PRN (Reason: pain) Qty: 20 RF: 0 cyclobenzaprine 10 mg tablet 10 mg PO TID PRN (Reason: pain) Qty: 15 RF: 0 lidocaine HCl 4 % adhesive patch,medicated 1 patch topical BID PRN (Reason: pain) Qty: 30 RF: 0 Atarax 100 mg Tablet 100 mg PO NEEDED PRN (Reason: Anxiety) RF: 0 hydrocortisone [Anusol-HC] 2.5 % cream with perineal applicator 1 applic NH BEDTIME PRN (Reason: pain) Qty: 30 RF: 0 polyethylene glycol 3350 [Miralax] 17 gram/dose powder 17 g PO DAILY Qty: 119 RF: 0 cyclobenzaprine 10 mg tablet 10 mg PO TID PRN (Reason: muscle spasm) Qty: 30 RF: 0 tramadol 50 mg tablet 50 mg PO Q8H PRN (Reason: pain) Qty: 12 RF: 0 cyclobenzaprine 5 mg tablet 5 mg PO TID PRN (Reason: muscle spasm) Qty: 5 RF: 0 cyclobenzaprine 10 mg tablet 10 mg PO TID PRN (Reason: muscle spasm) Qty: 20 RF: 0 ketorolac 10 mg tablet 10 mg PO QID 5 Days Qty: 20 RF: 0 methocarbamol [Robaxin-750] 750 mg tablet 750 mg PO Q8H PRN (Reason: pain, severe) Qty: 10 RF: 0 acetaminophen [Tylenol Extra Strength] 500 mg tablet 500 mg PO Q6H PRN (Reason: pain or fever) Qty: 20 RF: 0 lidocaine [Lidoderm] 5 % adhesive patch,medicated 1 patch topical DAILY MDD remove after 12 hours PRN (Reason: pain) Qty: 30 RF: 0 naproxen 500 mg tablet 500 mg PO BID PRN (Reason: pain) 10 Days Qty: 20 RF: 0 cyclobenzaprine 10 mg tablet 10 mg PO TID PRN (Reason: muscle spasm) Qty: 14 RF: 0 lidocaine 4 % adhesive patch,medicated 1 patch topical DAILY PRN (Reason: pain) Qty: 10 RF: 0 ibuprofen 600 mg tablet 600 mg PO Q6H PRN (Reason: pain) Qty: 30 RF: 0 ketorolac 10 mg tablet 10 mg PO Q8H PRN (Reason: pain) Qty: 10 RF: 0 cyclobenzaprine 10 mg tablet 10 mg PO TID PRN (Reason: muscle spasm) Qty: 10 RF: 0 pantoprazole [Protonix] 20 mg tablet,delayed release (DR/EC) 20 mg PO DAILY Qty: 30 RF: 0 ondansetron 4 mg tablet,disintegrating 4 mg PO Q6-8H PRN (Reason: nausea and vomiting) Qty: 14 RF: 0 cyclobenzaprine 10 mg tablet 10 mg PO TID PRN (Reason: pain) Qty: 18 RF: 0 naproxen 500 mg tablet 500 mg PO BID PRN (Reason: pain) Qty: 20 RF: 0 lidocaine 4 % adhesive patch,medicated 1 patch topical DAILY PRN (Reason: pain) Qty: 10 RF: 0 cyclobenzaprine 10 mg tablet 10 mg PO TID Qty: 10 RF: 0 naproxen [Naprosyn] 500 mg tablet 500 mg PO BID Qty: 20 RF: 0 doxycycline hyclate 100 mg capsule 100 mg PO BID Qty: 20 RF: 0 triamcinolone acetonide 0.025 % ointment 1 appl topical BID Qty: 15 RF: 0 sucralfate [Carafate] 100 mg/mL suspension 10 ml PO BID Qty: 420 RF: 0 cyclobenzaprine 10 mg tablet 10 mg PO TID Qty: 9 RF: 0 ketorolac 10 mg tablet 10 mg PO TID PRN (Reason: pain) 5 Days RF: 0
== END 2021-07-08 22:42 | disposition home or self-care (01) ==
PROVIDERS: Emergency Provider Internal Medicine
DX: S60.511A Abrasion of right hand, initial encounter (principal); X58.XXXA Exposure to other specified factors, initial encounter; Y93.9 Activity, unspecified; Y92.9 Unspecified place or not applicable; Y99.0 Civilian activity done for income or pay
CPT/HCPCS: 99283

== ENCOUNTER 2021-07-11 18:59 | Emergency (ER) | payer OTHER, SELFPAY ==
--- NOTE | 2021-07-11 19:49 | ED.OVERDOSE ---
HPI - Overdose General Chief Complaint: Overdose Stated Complaint: overdose Source: patient Mode of arrival: ambulatory Limitations: no limitations History of Present Illness HPI Narrative: 36-year-old male presents via EMS for overdose. Received Narcan in the field arrives alert oriented and in no acute distress. MD complaint: accidental overdose Context: Accidental Overdose: wanted to get high Related Data Home Medications Medication Instructions Recorded Confirmed hydroxyzine HCl 100 mg tablet 100 mg PO NEEDED PRN 08/03/20 08/03/20 Previous Rx's Medication Instructions Recorded hydrocortisone 2.5 % topical cream 1 applic VA BEDTIME PRN #30 g 08/13/20 with perineal applicator (Anusol-HC) polyethylene glycol 3350 17 17 g PO DAILY #119 g 08/13/20 gram/dose oral powder (Miralax) cyclobenzaprine 10 mg tablet 10 mg PO TID PRN #30 tab 08/15/20 tramadol 50 mg tablet 50 mg PO Q8H PRN #12 tab 08/15/20 ketorolac 10 mg tablet 10 mg PO Q6H PRN 5 Days #20 tab 08/17/20 cane #1 ea 09/01/20 cyclobenzaprine 5 mg tablet 5 mg PO TID PRN #10 tab 09/01/20 naproxen 500 mg tablet 500 mg PO BID PRN #14 tab 09/01/20 cyclobenzaprine 5 mg tablet 5 mg PO TID PRN #5 tab 09/08/20 cyclobenzaprine 10 mg tablet 10 mg PO BEDTIME PRN #3 tab 09/17/20 cyclobenzaprine 10 mg tablet 10 mg PO TID PRN #20 tab 09/22/20 ketorolac 10 mg tablet 10 mg PO QID 5 Days #20 tab 09/22/20 cephalexin 500 mg capsule (Keflex) 500 mg PO QID 7 Days #28 cap 09/26/20 doxycycline monohydrate 100 mg 100 mg PO BID 7 Days #14 cap 09/26/20 capsule cyclobenzaprine 10 mg tablet 10 mg PO TID PRN #8 tab 09/29/20 ibuprofen 600 mg tablet 600 mg PO Q8H PRN #15 tab 09/29/20 lidocaine 5 % topical patch 1 patch TOPICAL DAILY #15 ea 09/29/20 (Lidoderm) acetaminophen 500 mg tablet 500 mg PO Q6H PRN #20 tab 10/04/20 (Tylenol Extra Strength) lidocaine 5 % topical patch 1 patch TOPICAL DAILY PRN #30 ea 10/04/20 (Lidoderm) MDD remove after 12 hours methocarbamol 750 mg tablet 750 mg PO Q8H PRN #10 tab 10/04/20 (Robaxin-750) naproxen 500 mg tablet 500 mg PO BID PRN 10 Days #20 tab 10/04/20 ibuprofen 400 mg tablet 400 mg PO Q6H PRN #20 tab 10/30/20 lidocaine 5 % topical patch 1 patch TOPICAL DAILY PRN #1 ea 10/30/20 (Lidoderm) omeprazole 40 mg capsule,delayed 40 mg PO DAILY #20 cap 11/04/20 release sucralfate 1 gram tablet (Carafate) 1 g PO BID #30 tab 11/04/20 mupirocin 2 % topical ointment 1 appl TOPICAL BID #15 g 12/04/20 cyclobenzaprine 10 mg tablet 10 mg PO TID PRN #14 tab 12/07/20 ibuprofen 600 mg tablet 600 mg PO Q6H PRN #30 tab 12/07/20 lidocaine 4 % topical patch 1 patch TOPICAL DAILY PRN #10 ea 12/07/20 omeprazole 20 mg capsule,delayed 20 mg PO DAILY #30 cap 12/15/20 release vitamins no.170-iron 1 tab PO DAILY #30 tab 12/15/20 fumarate 27 mg-folic acid 1 mg tablet cyclobenzaprine 10 mg tablet 10 mg PO TID PRN #20 tab 12/27/20 lidocaine 5 % topical patch 1 patch TOPICAL Q24H #15 ea 12/27/20 ondansetron 4 mg disintegrating 4 mg PO Q8H PRN #20 tab 01/02/21 tablet naloxone 4 mg/actuation nasal 4 mg INTRANASAL Q3M PRN #2 ea 01/08/21 spray (Narcan) cyclobenzaprine 10 mg tablet 10 mg PO TID PRN #10 tab 01/16/21 ketorolac 10 mg tablet 10 mg PO Q8H PRN #10 tab 01/16/21 ketorolac 10 mg tablet 10 mg PO Q6H PRN 5 Days #20 tab 01/27/21 ibuprofen 600 mg tablet 600 mg PO Q6H PRN #20 tab 02/10/21 loperamide 2 mg tablet 2 mg PO Q4H PRN #10 tab 02/10/21 (Anti-Diarrheal (loperamide)) ondansetron HCl 4 mg tablet 4 mg PO Q6H PRN #14 tab 02/10/21 (Zofran) ondansetron 4 mg disintegrating 4 mg PO Q6-8H PRN #14 tab 02/13/21 tablet pantoprazole 20 mg tablet,delayed 20 mg PO DAILY #30 tab 02/13/21 release (Protonix) cyclobenzaprine 10 mg tablet 10 mg PO TID PRN #18 tab 02/16/21 naproxen 500 mg tablet 500 mg PO BID PRN #20 tab 02/16/21 lidocaine 4 % topical patch 1 patch TOPICAL DAILY PRN #10 ea 02/19/21 cyclobenzaprine 10 mg tablet 10 mg PO TID #10 tab 02/27/21 naproxen 500 mg tablet (Naprosyn) 500 mg PO BID #20 tab 02/27/21 cyclobenzaprine 5 mg tablet 5 mg PO TID PRN #10 tab 03/02/21 ibuprofen 600 mg tablet 600 mg PO Q6H PRN #14 tab 03/02/21 lidocaine 5 % topical patch 1 patch TOPICAL DAILY PRN #15 ea 03/02/21 oxycodone 5 mg tablet 5 mg PO Q6H PRN #5 tab 03/02/21 cyclobenzaprine 10 mg tablet 10 mg PO TID PRN #10 tab 03/28/21 lidocaine 4 % topical patch 1 patch TOPICAL BID PRN #10 ea 03/28/21 (Aspercreme (lidocaine)) doxycycline hyclate 100 mg capsule 100 mg PO BID #20 cap 03/31/21 triamcinolone acetonide 0.025 % 1 appl TOPICAL BID #15 g 04/12/21 topical ointment cyclobenzaprine 10 mg tablet 10 mg PO TID PRN #15 tab 05/04/21 lidocaine HCl 4 % topical patch 1 patch TOPICAL BID PRN #30 ea 05/04/21 naproxen 500 mg tablet 500 mg PO BID PRN #20 tab 05/04/21 sucralfate 100 mg/mL oral 10 ml PO BID #420 ml 05/31/21 suspension (Carafate) cyclobenzaprine 10 mg tablet 10 mg PO TID #9 tab 06/10/21 ketorolac 10 mg tablet 10 mg PO TID PRN 5 Days tab 06/10/21 doxycycline hyclate 100 mg tablet 100 mg PO BID #20 tab 07/08/21 Allergies Allergy/AdvReac Type Severity Reaction Status Date / Time Penicillins [PCN] Allergy Mild RASH Verified 03/28/21 05:03 silver AdvReac Intermediate rash Verified 03/28/21 05:03 [From Proactive Comfort AG MESH] Review of Systems Review of Systems: Constitutional: No Fever, No Chills ENT/Mouth: No sore throat, No Rhinorrhea Eyes: No Eye Pain, No Swelling, No Redness Cardiovascular: No Chest Pain, No SOB Respiratory: No Cough, No Sputum Gastrointestinal: No Nausea, No Vomiting, No Diarrhea, No abdominal Pain Genitourinary: No Dysuria, No Hematuria Musculoskeletal: No joint pain, No Myalgias, No Joint Swelling Skin: No Skin Lesions, No rash Neuro: No Weakness, No Numbness, No Loss of Consciousness, No Dizziness, No Headache Psych: Positive substance abuse, No Anxiety, No Depression, No SI/HI/AH/VH Heme/Lymph: No Bruising, No Bleeding,No Lymphadenopathy Endocrine: No Polyuria, No Polydipsia Yes all other systems are reviewed and are negative [facility] Past Medical History Attestation statement: The following information was validated with the patient. Source: old records reviewed Medical History Anxiety Bipolar 1 disorder Contusion Depression Foot drop, right foot Heart murmur Schizophrenia Surgical History No pertinent past surgical history Social History Social History Alcohol intake: unknown Substance Use Type: Marijuana Advance Directives: No Physical Exam Vital Signs: Vital Signs: Last Vital Signs Temp 98 F 07/11/21 20:17 Pulse 98 07/11/21 20:17 Resp 18 07/11/21 20:17 BP 132/89 07/11/21 20:17 Pulse Ox 97 07/11/21 20:17 Body Mass Index 24.9 Appearance: Alert. Oriented X3. No acute distress. Eyes: Pupils equal, round and reactive to light. ENT: Pharynx normal. Neck: Normal inspection. Neck supple. CVS: Normal heart rate and rhythm. Pulses normal. Respiratory: No respiratory distress. Breath sounds normal. Abdomen: Soft and nontender. Skin: Skin warm and dry. Normal skin color. Normal skin turgor. Extremities: No lower extremity edema. Gait well balanced well coordinated. Neuro: No motor deficit. No sensory deficit. Cranial nerves 2-12 intact. Course Course Course Narrative: 36-year-old male presents for accidental overdose. Was given Narcan in the field. Is alert oriented x4, remorseful at this time, even unlabored respirations, vital signs stable within normal limits. O2 sat 99% on room air. Patient is interested in detox. Care team consult pending. At 8:30 p.m. patient is belligerent, stating that he wants to leave, no longer interested in detox. Swearing at staff, walking around [place] and is unable to be redirected. Patient's vital signs are stable and within normal limits, O2 sat 97% on room air, even unlabored respirations. Discharge home. MDM - Overdose Differential Diagnosis Differential diagnosis: Likely drug overdose Medical Records Attestation: I reviewed the patient's medical records. Discharge Plan Discharge Clinical Impression: Drug overdose Patient Disposition: Home, Self-Care Instructions: Adult Overdose (ED) Additional Instructions: Consider detox. Heroin will kill you. Thank you for choosing this emergency department for evaluation. Please follow-up with primary care physician as needed. Return to the emergency department for any new, concerning, or worsening symptoms. Prescriptions: No Action ketorolac 10 mg tablet 10 mg PO Q6H PRN (Reason: pain) 5 Days Qty: 20 RF: 0 naproxen 500 mg tablet 500 mg PO BID PRN (Reason: pain) Qty: 14 RF: 0 cyclobenzaprine 5 mg tablet 5 mg PO TID PRN (Reason: muscle spasm) Qty: 10 RF: 0 (DME) cane Device See Rx Instructions .ROUTE .MEDSUPPLY Qty: 1 RF: 0 cyclobenzaprine 10 mg tablet 10 mg PO BEDTIME PRN (Reason: muscle spasm) Qty: 3 RF: 0 doxycycline monohydrate 100 mg capsule 100 mg PO BID 7 Days Qty: 14 RF: 0 cephalexin [Keflex] 500 mg capsule 500 mg PO QID 7 Days Qty: 28 RF: 0 lidocaine [Lidoderm] 5 % adhesive patch,medicated 1 patch topical DAILY Qty: 15 RF: 0 ibuprofen 600 mg tablet 600 mg PO Q8H PRN (Reason: pain) Qty: 15 RF: 0 cyclobenzaprine 10 mg tablet 10 mg PO TID PRN (Reason: muscle spasm) Qty: 8 RF: 0 lidocaine [Lidoderm] 5 % adhesive patch,medicated 1 patch topical DAILY PRN (Reason: pain) Qty: 1 RF: 0 ibuprofen 400 mg tablet 400 mg PO Q6H PRN (Reason: pain) Qty: 20 RF: 0 omeprazole 40 mg capsule,delayed release(DR/EC) 40 mg PO DAILY Qty: 20 RF: 0 sucralfate [Carafate] 1 gram tablet 1 g PO BID Qty: 30 RF: 0 mupirocin 2 % ointment 1 appl topical BID Qty: 15 RF: 0 omeprazole 20 mg capsule,delayed release(DR/EC) 20 mg PO DAILY Qty: 30 RF: 0 PNV no.170-iron fum-folic acid 27 mg iron- 1 mg tablet 1 tab PO DAILY Qty: 30 RF: 0 cyclobenzaprine 10 mg tablet 10 mg PO TID PRN (Reason: muscle pain or spasm) Qty: 20 RF: 0 lidocaine 5 % adhesive patch,medicated 1 patch topical Q24H Qty: 15 RF: 0 ondansetron 4 mg tablet,disintegrating 4 mg PO Q8H PRN (Reason: nausea and vomiting) Qty: 20 RF: 0 Narcan 4 mg/actuation spray,non-aerosol 4 mg intranasal Q3M PRN (Reason: opioid overdose) Qty: 2 RF: 0 ketorolac 10 mg tablet 10 mg PO Q6H PRN (Reason: pain) 5 Days Qty: 20 RF: 0 ondansetron HCl [Zofran] 4 mg tablet 4 mg PO Q6H PRN (Reason: nausea and vomiting) Qty: 14 RF: 0 loperamide [Anti-Diarrheal (loperamide)] 2 mg tablet 2 mg PO Q4H PRN (Reason: loose stool) Qty: 10 RF: 0 ibuprofen 600 mg tablet 600 mg PO Q6H PRN (Reason: fever or pain) Qty: 20 RF: 0 lidocaine 5 % adhesive patch,medicated 1 patch topical DAILY PRN (Reason: back pain) Qty: 15 RF: 0 oxycodone 5 mg tablet 5 mg PO Q6H PRN (Reason: pain) Qty: 5 RF: 0 ibuprofen 600 mg tablet 600 mg PO Q6H PRN (Reason: pain) Qty: 14 RF: 0 cyclobenzaprine 5 mg tablet 5 mg PO TID PRN (Reason: muscle spasm) Qty: 10 RF: 0 cyclobenzaprine 10 mg tablet 10 mg PO TID PRN (Reason: muscle spasm) Qty: 10 RF: 0 lidocaine [Aspercreme (lidocaine HCl)] 4 % adhesive patch,medicated 1 patch topical BID PRN (Reason: pain) Qty: 10 RF: 0 naproxen 500 mg tablet 500 mg PO BID PRN (Reason: pain) Qty: 20 RF: 0 cyclobenzaprine 10 mg tablet 10 mg PO TID PRN (Reason: pain) Qty: 15 RF: 0 lidocaine HCl 4 % adhesive patch,medicated 1 patch topical BID PRN (Reason: pain) Qty: 30 RF: 0 doxycycline hyclate 100 mg tablet 100 mg PO BID Qty: 20 RF: 0 Atarax 100 mg Tablet 100 mg PO NEEDED PRN (Reason: Anxiety) RF: 0 hydrocortisone [Anusol-HC] 2.5 % cream with perineal applicator 1 applic VA BEDTIME PRN (Reason: pain) Qty: 30 RF: 0 polyethylene glycol 3350 [Miralax] 17 gram/dose powder 17 g PO DAILY Qty: 119 RF: 0 cyclobenzaprine 10 mg tablet 10 mg PO TID PRN (Reason: muscle spasm) Qty: 30 RF: 0 tramadol 50 mg tablet 50 mg PO Q8H PRN (Reason: pain) Qty: 12 RF: 0 cyclobenzaprine 5 mg tablet 5 mg PO TID PRN (Reason: muscle spasm) Qty: 5 RF: 0 cyclobenzaprine 10 mg tablet 10 mg PO TID PRN (Reason: muscle spasm) Qty: 20 RF: 0 ketorolac 10 mg tablet 10 mg PO QID 5 Days Qty: 20 RF: 0 methocarbamol [Robaxin-750] 750 mg tablet 750 mg PO Q8H PRN (Reason: pain, severe) Qty: 10 RF: 0 acetaminophen [Tylenol Extra Strength] 500 mg tablet 500 mg PO Q6H PRN (Reason: pain or fever) Qty: 20 RF: 0 lidocaine [Lidoderm] 5 % adhesive patch,medicated 1 patch topical DAILY MDD remove after 12 hours PRN (Reason: pain) Qty: 30 RF: 0 naproxen 500 mg tablet 500 mg PO BID PRN (Reason: pain) 10 Days Qty: 20 RF: 0 cyclobenzaprine 10 mg tablet 10 mg PO TID PRN (Reason: muscle spasm) Qty: 14 RF: 0 lidocaine 4 % adhesive patch,medicated 1 patch topical DAILY PRN (Reason: pain) Qty: 10 RF: 0 ibuprofen 600 mg tablet 600 mg PO Q6H PRN (Reason: pain) Qty: 30 RF: 0 ketorolac 10 mg tablet 10 mg PO Q8H PRN (Reason: pain) Qty: 10 RF: 0 cyclobenzaprine 10 mg tablet 10 mg PO TID PRN (Reason: muscle spasm) Qty: 10 RF: 0 pantoprazole [Protonix] 20 mg tablet,delayed release (DR/EC) 20 mg PO DAILY Qty: 30 RF: 0 ondansetron 4 mg tablet,disintegrating 4 mg PO Q6-8H PRN (Reason: nausea and vomiting) Qty: 14 RF: 0 cyclobenzaprine 10 mg tablet 10 mg PO TID PRN (Reason: pain) Qty: 18 RF: 0 naproxen 500 mg tablet 500 mg PO BID PRN (Reason: pain) Qty: 20 RF: 0 lidocaine 4 % adhesive patch,medicated 1 patch topical DAILY PRN (Reason: pain) Qty: 10 RF: 0 cyclobenzaprine 10 mg tablet 10 mg PO TID Qty: 10 RF: 0 naproxen [Naprosyn] 500 mg tablet 500 mg PO BID Qty: 20 RF: 0 doxycycline hyclate 100 mg capsule 100 mg PO BID Qty: 20 RF: 0 triamcinolone acetonide 0.025 % ointment 1 appl topical BID Qty: 15 RF: 0 sucralfate [Carafate] 100 mg/mL suspension 10 ml PO BID Qty: 420 RF: 0 cyclobenzaprine 10 mg tablet 10 mg PO TID Qty: 9 RF: 0 ketorolac 10 mg tablet 10 mg PO TID PRN (Reason: pain) 5 Days RF: 0 Interventions: ED Discharge Assessment Last Done: 07/11/21 21:02 Discharge Date/Time: 07/11/21 21:03
[2021-07-11 20:17] VITALS: BP 132/89; PULSE 98; RESP 18; TEMP 36.6; O2SAT 97; BMI 24.9
--- NOTE | 2021-07-11 20:51 | MHC.CARE ---
This sign writer letterer or painter met with pt, per providers request. During the interview, he appeared to be in the contemplation stage of change, where he is intending to develop healthy habits and understands that his substance abuse has negative consequences in his actions. During the intervention he stated that he his drug of choice was cocaine/crack and alcohol. However, he was not looking for Detox services. However, he did request outpatient substance abuse resources. This sign writer letterer or painter went over the community resources and gave him pamphlets to such. Pt requested to be discharged. IZAIAH Douglas and ROXANNE Ledezma was consulted.
== END 2021-07-11 21:03 | disposition home or self-care (01) ==
PROVIDERS: Emergency Provider Emergency Medicine Emergency Medical Services
DX: T40.1X1A Poisoning by heroin, accidental (unintentional), initial encounter (principal); Y92.9 Unspecified place or not applicable; Z79.899 Other long term (current) drug therapy; Z71.51 Drug abuse counseling and surveillance of drug abuser
CPT/HCPCS: 99283

== ENCOUNTER 2021-07-14 06:16 | Emergency (ER) | payer OTHER, SELFPAY ==
[2021-07-14 06:36] VITALS: BP 111/57; PULSE 79; RESP 14; TEMP 36.6; O2SAT 98; BMI 24.7
== END 2021-07-14 10:06 | disposition left against medical advice (07) ==
PROVIDERS: Emergency Provider Emergency Medicine
DX: M54.5 Low back pain (principal); M79.672 Pain in left foot; M79.671 Pain in right foot
CPT/HCPCS: 99281

== ENCOUNTER 2021-07-26 06:02 | Emergency (ER) | payer OTHER, SELFPAY ==
[2021-07-26 06:40] VITALS: BP 115/69; PULSE 55; RESP 16; TEMP 36.3; O2SAT 98; BMI 25.7
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
== END 2021-07-26 08:58 | disposition home or self-care (01) ==
PROVIDERS: Emergency Provider Emergency Medicine Emergency Medical Services
DX: M54.5 Low back pain (principal); Z79.899 Other long term (current) drug therapy
CPT/HCPCS: 99283

== ENCOUNTER 2021-07-31 05:49 | Emergency (ER) | payer OTHER, SELFPAY ==
[2021-07-31 06:01] VITALS: BP 105/53; PULSE 71; RESP 18; TEMP 36.2; O2SAT 97; BMI 25.8
[2021-07-31 06:05] VITALS: BP 117/64; PULSE 70; RESP 18; TEMP 36.6; O2SAT 97; BMI 24.1
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
--- NOTE | 2021-07-31 06:45 | PC.NURSE ---
PT SLEEPING AWAITING FOR MD'S EVAL.
--- NOTE | 2021-07-31 06:50 | ED_ITS ---
HPI - Back Pain/Injury General Chief Complaint: Neck Pain/Injury Stated Complaint: back/neck pain Time Seen by Provider: 07/31/21 06:49 Source: patient Mode of arrival: ambulatory Limitations: no limitations History of Present Illness HPI Narrative: 36-year-old male past medical history of chronic back pain that has been going on for 3 years presents to the emergency department stating he has been having really bad marked pain, that is sharp in nature, it is localized to the mid lower back. He states this pain is sharp in nature. And feels like his typical back pain. He denies any weakness, urinary incontinence. He is coming from home. Denies chest pain, shortness of breath, fevers, chills, nausea, vomiting. He denies any trauma to the area. He has not had any falls. MD elicited complaint: back pain Pertinent past history: prior back pain Onset (ago): year(s) (3) Timing: constant Severity: severe Quality: sharp Location: lumbar spine and thoracic spine Radiation: none Exacerbating factors: movement Relieving factors: none Associated symptoms: denies other symptoms Related Data Home Medications Medication Instructions Recorded Confirmed hydroxyzine HCl 100 mg tablet 100 mg PO NEEDED PRN 08/03/20 08/03/20 Previous Rx's Medication Instructions Recorded hydrocortisone 2.5 % topical cream 1 applic MT BEDTIME PRN #30 g 08/13/20 with perineal applicator (Anusol-HC) polyethylene glycol 3350 17 17 g PO DAILY #119 g 08/13/20 gram/dose oral powder (Miralax) cyclobenzaprine 10 mg tablet 10 mg PO TID PRN #30 tab 08/15/20 tramadol 50 mg tablet 50 mg PO Q8H PRN #12 tab 08/15/20 ketorolac 10 mg tablet 10 mg PO Q6H PRN 5 Days #20 tab 08/17/20 cane #1 ea 09/01/20 cyclobenzaprine 5 mg tablet 5 mg PO TID PRN #10 tab 09/01/20 naproxen 500 mg tablet 500 mg PO BID PRN #14 tab 09/01/20 cyclobenzaprine 5 mg tablet 5 mg PO TID PRN #5 tab 09/08/20 cyclobenzaprine 10 mg tablet 10 mg PO BEDTIME PRN #3 tab 09/17/20 cyclobenzaprine 10 mg tablet 10 mg PO TID PRN #20 tab 09/22/20 ketorolac 10 mg tablet 10 mg PO QID 5 Days #20 tab 09/22/20 cephalexin 500 mg capsule (Keflex) 500 mg PO QID 7 Days #28 cap 09/26/20 doxycycline monohydrate 100 mg 100 mg PO BID 7 Days #14 cap 09/26/20 capsule cyclobenzaprine 10 mg tablet 10 mg PO TID PRN #8 tab 09/29/20 ibuprofen 600 mg tablet 600 mg PO Q8H PRN #15 tab 09/29/20 lidocaine 5 % topical patch 1 patch TOPICAL DAILY #15 ea 09/29/20 (Lidoderm) acetaminophen 500 mg tablet 500 mg PO Q6H PRN #20 tab 10/04/20 (Tylenol Extra Strength) lidocaine 5 % topical patch 1 patch TOPICAL DAILY PRN #30 ea 10/04/20 (Lidoderm) MDD remove after 12 hours methocarbamol 750 mg tablet 750 mg PO Q8H PRN #10 tab 10/04/20 (Robaxin-750) naproxen 500 mg tablet 500 mg PO BID PRN 10 Days #20 tab 10/04/20 ibuprofen 400 mg tablet 400 mg PO Q6H PRN #20 tab 10/30/20 lidocaine 5 % topical patch 1 patch TOPICAL DAILY PRN #1 ea 10/30/20 (Lidoderm) omeprazole 40 mg capsule,delayed 40 mg PO DAILY #20 cap 11/04/20 release sucralfate 1 gram tablet (Carafate) 1 g PO BID #30 tab 11/04/20 mupirocin 2 % topical ointment 1 appl TOPICAL BID #15 g 12/04/20 cyclobenzaprine 10 mg tablet 10 mg PO TID PRN #14 tab 12/07/20 ibuprofen 600 mg tablet 600 mg PO Q6H PRN #30 tab 12/07/20 lidocaine 4 % topical patch 1 patch TOPICAL DAILY PRN #10 ea 12/07/20 omeprazole 20 mg capsule,delayed 20 mg PO DAILY #30 cap 12/15/20 release vitamins no.170-iron 1 tab PO DAILY #30 tab 12/15/20 fumarate 27 mg-folic acid 1 mg tablet cyclobenzaprine 10 mg tablet 10 mg PO TID PRN #20 tab 12/27/20 lidocaine 5 % topical patch 1 patch TOPICAL Q24H #15 ea 12/27/20 ondansetron 4 mg disintegrating 4 mg PO Q8H PRN #20 tab 01/02/21 tablet naloxone 4 mg/actuation nasal 4 mg INTRANASAL Q3M PRN #2 ea 01/08/21 spray (Narcan) cyclobenzaprine 10 mg tablet 10 mg PO TID PRN #10 tab 01/16/21 ketorolac 10 mg tablet 10 mg PO Q8H PRN #10 tab 01/16/21 ketorolac 10 mg tablet 10 mg PO Q6H PRN 5 Days #20 tab 01/27/21 ibuprofen 600 mg tablet 600 mg PO Q6H PRN #20 tab 02/10/21 loperamide 2 mg tablet 2 mg PO Q4H PRN #10 tab 02/10/21 (Anti-Diarrheal (loperamide)) ondansetron HCl 4 mg tablet 4 mg PO Q6H PRN #14 tab 02/10/21 (Zofran) ondansetron 4 mg disintegrating 4 mg PO Q6-8H PRN #14 tab 02/13/21 tablet pantoprazole 20 mg tablet,delayed 20 mg PO DAILY #30 tab 02/13/21 release (Protonix) cyclobenzaprine 10 mg tablet 10 mg PO TID PRN #18 tab 02/16/21 naproxen 500 mg tablet 500 mg PO BID PRN #20 tab 02/16/21 lidocaine 4 % topical patch 1 patch TOPICAL DAILY PRN #10 ea 02/19/21 cyclobenzaprine 10 mg tablet 10 mg PO TID #10 tab 02/27/21 naproxen 500 mg tablet (Naprosyn) 500 mg PO BID #20 tab 02/27/21 cyclobenzaprine 5 mg tablet 5 mg PO TID PRN #10 tab 03/02/21 ibuprofen 600 mg tablet 600 mg PO Q6H PRN #14 tab 03/02/21 lidocaine 5 % topical patch 1 patch TOPICAL DAILY PRN #15 ea 03/02/21 oxycodone 5 mg tablet 5 mg PO Q6H PRN #5 tab 03/02/21 cyclobenzaprine 10 mg tablet 10 mg PO TID PRN #10 tab 03/28/21 lidocaine 4 % topical patch 1 patch TOPICAL BID PRN #10 ea 03/28/21 (Aspercreme (lidocaine)) doxycycline hyclate 100 mg capsule 100 mg PO BID #20 cap 03/31/21 triamcinolone acetonide 0.025 % 1 appl TOPICAL BID #15 g 04/12/21 topical ointment cyclobenzaprine 10 mg tablet 10 mg PO TID PRN #15 tab 05/04/21 lidocaine HCl 4 % topical patch 1 patch TOPICAL BID PRN #30 ea 05/04/21 naproxen 500 mg tablet 500 mg PO BID PRN #20 tab 05/04/21 sucralfate 100 mg/mL oral 10 ml PO BID #420 ml 05/31/21 suspension (Carafate) cyclobenzaprine 10 mg tablet 10 mg PO TID #9 tab 06/10/21 ketorolac 10 mg tablet 10 mg PO TID PRN 5 Days tab 06/10/21 doxycycline hyclate 100 mg tablet 100 mg PO BID #20 tab 07/08/21 cyclobenzaprine 10 mg tablet 10 mg PO TID PRN #14 tab 07/26/21 ketorolac 10 mg tablet 10 mg PO TID PRN 5 Days #15 tab 07/26/21 Allergies Allergy/AdvReac Type Severity Reaction Status Date / Time Penicillins [PCN] Allergy Mild RASH Verified 07/26/21 06:41 silver AdvReac Intermediate rash Verified 07/26/21 06:41 [From TEGADERM AG MESH] Review of Systems Review of Systems: Yes all other systems are reviewed and are negative PMFSH Past Medical History Medical History Anxiety Bipolar 1 disorder Contusion Depression Foot drop, right foot Heart murmur Schizophrenia Surgical History No pertinent past surgical history Social History Social History Alcohol intake: unknown Substance Use Type: Marijuana Advance Directives: No Advance Directives Information Provided: No Physical Exam Vital Signs: Vital Signs: Last Vital Signs Temp 97.9 F 07/31/21 06:05 Pulse 70 07/31/21 06:05 Resp 18 07/31/21 06:05 BP 117/64 07/31/21 06:05 Pulse Ox 97 07/31/21 06:05 Body Mass Index 24.1 Const: General: cooperative and no acute distress Orientation/consciousness: oriented to person and oriented to place Limitations: no limitations HENMT: Head: Yes normal to inspection, Yes normocephalic and Yes atraumatic Ears: external ears normal General nose exam: Normal external nose present Face and sinus: Yes normal facial exam Mouth: Normal oral and palatal mucosa present Throat: Yes posterior oropharynx normal Eyes: General: appearance normal, both eyes and all related structures Pupils: Equal, round and reactive pupils present Neck: Neck: Yes normal visual inspection, Yes no lymphadenopathy, Yes trachea midline and Yes supple Chest: Chest palpation & inspection: normal inspection of the chest and normal palpation of entire chest wall Resp: Effort & Inspection: normal respiratory effort and able to speak in complete sentences Auscultation: clear to auscultation bilaterally Cardio: Rate: regular rate Rhythm: regular rhythm Heart sounds: S1 normal heart sound present, S2 normal heart sound present and no murmurs GI: Inspection: Yes normal to inspection Palpation (GI): Soft to palpation, nontender and no guarding Auscultation: normal bowel sounds : General: Yes no CVA tenderness Back/Spine/Pelvis: Back: no CVA tenderness Skin: General skin exam: no rashes or lesions noted Neuro: General: oriented to person and oriented to place Cranial nerves: Yes CN's II-XII intact bilaterally and Yes Equal, round and reactive pupils present Cognition (Neuro): normal cognition Motor exam (neuro): 5/5 motor strength present throughout Extrem: General: Yes normal to inspection Psych: Appearance: grossly normal Speech and movement: Normal speech and movement present Affect: normal affect Attitude: cooperative Thought process: Normal thought process present Thought content: Normal thought content present MDM - Back Pain/Injury MDM Narrative Medical decision making narrative: This is a 36-year-old male past medical history of chronic back pain presenting to the emergency department for back pain. He states this pain has been going on for over 3 years. He describes the pain as sharp and localize to his middle and upper back. He feels like this is his typical back pain. He denies weakness, urinary incontinence. He is able to ambulate with a steady gait. He denies trauma. 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 He has been educated that it is important that if he is having pain he should picker box operator the Scripts, and the muscle relaxer will help loosen up his muscles, and may improve pain. He confirms understanding. 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 Based off of this patient's history and physical exam, imaging is not warranted. This is likely chronic back pain. There is no midline tenderness, or focal neuro deficits. There is also no weakness appreciated on exam. Patient is ambulating around the room. With a steady gait. 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, these will help you feel better Follow up with your PCP in two days Return to the emergency department with new or worsening symptoms Prescriptions: No Action ketorolac 10 mg tablet 10 mg PO Q6H PRN (Reason: pain) 5 Days Qty: 20 RF: 0 naproxen 500 mg tablet 500 mg PO BID PRN (Reason: pain) Qty: 14 RF: 0 cyclobenzaprine 5 mg tablet 5 mg PO TID PRN (Reason: muscle spasm) Qty: 10 RF: 0 (DME) cane Device See Rx Instructions .ROUTE .MEDSUPPLY Qty: 1 RF: 0 cyclobenzaprine 10 mg tablet 10 mg PO BEDTIME PRN (Reason: muscle spasm) Qty: 3 RF: 0 doxycycline monohydrate 100 mg capsule 100 mg PO BID 7 Days Qty: 14 RF: 0 cephalexin [Keflex] 500 mg capsule 500 mg PO QID 7 Days Qty: 28 RF: 0 lidocaine [Lidoderm] 5 % adhesive patch,medicated 1 patch topical DAILY Qty: 15 RF: 0 ibuprofen 600 mg tablet 600 mg PO Q8H PRN (Reason: pain) Qty: 15 RF: 0 cyclobenzaprine 10 mg tablet 10 mg PO TID PRN (Reason: muscle spasm) Qty: 8 RF: 0 lidocaine [Lidoderm] 5 % adhesive patch,medicated 1 patch topical DAILY PRN (Reason: pain) Qty: 1 RF: 0 ibuprofen 400 mg tablet 400 mg PO Q6H PRN (Reason: pain) Qty: 20 RF: 0 omeprazole 40 mg capsule,delayed release(DR/EC) 40 mg PO DAILY Qty: 20 RF: 0 sucralfate [Carafate] 1 gram tablet 1 g PO BID Qty: 30 RF: 0 mupirocin 2 % ointment 1 appl topical BID Qty: 15 RF: 0 omeprazole 20 mg capsule,delayed release(DR/EC) 20 mg PO DAILY Qty: 30 RF: 0 PNV no.170-iron fum-folic acid 27 mg iron- 1 mg tablet 1 tab PO DAILY Qty: 30 RF: 0 cyclobenzaprine 10 mg tablet 10 mg PO TID PRN (Reason: muscle pain or spasm) Qty: 20 RF: 0 lidocaine 5 % adhesive patch,medicated 1 patch topical Q24H Qty: 15 RF: 0 ondansetron 4 mg tablet,disintegrating 4 mg PO Q8H PRN (Reason: nausea and vomiting) Qty: 20 RF: 0 Narcan 4 mg/actuation spray,non-aerosol 4 mg intranasal Q3M PRN (Reason: opioid overdose) Qty: 2 RF: 0 ketorolac 10 mg tablet 10 mg PO Q6H PRN (Reason: pain) 5 Days Qty: 20 RF: 0 ondansetron HCl [Zofran] 4 mg tablet 4 mg PO Q6H PRN (Reason: nausea and vomiting) Qty: 14 RF: 0 loperamide [Anti-Diarrheal (loperamide)] 2 mg tablet 2 mg PO Q4H PRN (Reason: loose stool) Qty: 10 RF: 0 ibuprofen 600 mg tablet 600 mg PO Q6H PRN (Reason: fever or pain) Qty: 20 RF: 0 lidocaine 5 % adhesive patch,medicated 1 patch topical DAILY PRN (Reason: back pain) Qty: 15 RF: 0 oxycodone 5 mg tablet 5 mg PO Q6H PRN (Reason: pain) Qty: 5 RF: 0 ibuprofen 600 mg tablet 600 mg PO Q6H PRN (Reason: pain) Qty: 14 RF: 0 cyclobenzaprine 5 mg tablet 5 mg PO TID PRN (Reason: muscle spasm) Qty: 10 RF: 0 cyclobenzaprine 10 mg tablet 10 mg PO TID PRN (Reason: muscle spasm) Qty: 10 RF: 0 lidocaine [Aspercreme (lidocaine HCl)] 4 % adhesive patch,medicated 1 patch topical BID PRN (Reason: pain) Qty: 10 RF: 0 naproxen 500 mg tablet 500 mg PO BID PRN (Reason: pain) Qty: 20 RF: 0 cyclobenzaprine 10 mg tablet 10 mg PO TID PRN (Reason: pain) Qty: 15 RF: 0 lidocaine HCl 4 % adhesive patch,medicated 1 patch topical BID PRN (Reason: pain) Qty: 30 RF: 0 doxycycline hyclate 100 mg tablet 100 mg PO BID Qty: 20 RF: 0 Atarax 100 mg Tablet 100 mg PO NEEDED PRN (Reason: Anxiety) RF: 0 hydrocortisone [Anusol-HC] 2.5 % cream with perineal applicator 1 applic MT BEDTIME PRN (Reason: pain) Qty: 30 RF: 0 polyethylene glycol 3350 [Miralax] 17 gram/dose powder 17 g PO DAILY Qty: 119 RF: 0 cyclobenzaprine 10 mg tablet 10 mg PO TID PRN (Reason: muscle spasm) Qty: 30 RF: 0 tramadol 50 mg tablet 50 mg PO Q8H PRN (Reason: pain) Qty: 12 RF: 0 cyclobenzaprine 5 mg tablet 5 mg PO TID PRN (Reason: muscle spasm) Qty: 5 RF: 0 cyclobenzaprine 10 mg tablet 10 mg PO TID PRN (Reason: muscle spasm) Qty: 20 RF: 0 ketorolac 10 mg tablet 10 mg PO QID 5 Days Qty: 20 RF: 0 methocarbamol [Robaxin-750] 750 mg tablet 750 mg PO Q8H PRN (Reason: pain, severe) Qty: 10 RF: 0 acetaminophen [Tylenol Extra Strength] 500 mg tablet 500 mg PO Q6H PRN (Reason: pain or fever) Qty: 20 RF: 0 lidocaine [Lidoderm] 5 % adhesive patch,medicated 1 patch topical DAILY MDD remove after 12 hours PRN (Reason: pain) Qty: 30 RF: 0 naproxen 500 mg tablet 500 mg PO BID PRN (Reason: pain) 10 Days Qty: 20 RF: 0 cyclobenzaprine 10 mg tablet 10 mg PO TID PRN (Reason: muscle spasm) Qty: 14 RF: 0 lidocaine 4 % adhesive patch,medicated 1 patch topical DAILY PRN (Reason: pain) Qty: 10 RF: 0 ibuprofen 600 mg tablet 600 mg PO Q6H PRN (Reason: pain) Qty: 30 RF: 0 ketorolac 10 mg tablet 10 mg PO Q8H PRN (Reason: pain) Qty: 10 RF: 0 cyclobenzaprine 10 mg tablet 10 mg PO TID PRN (Reason: muscle spasm) Qty: 10 RF: 0 pantoprazole [Protonix] 20 mg tablet,delayed release (DR/EC) 20 mg PO DAILY Qty: 30 RF: 0 ondansetron 4 mg tablet,disintegrating 4 mg PO Q6-8H PRN (Reason: nausea and vomiting) Qty: 14 RF: 0 cyclobenzaprine 10 mg tablet 10 mg PO TID PRN (Reason: pain) Qty: 18 RF: 0 naproxen 500 mg tablet 500 mg PO BID PRN (Reason: pain) Qty: 20 RF: 0 lidocaine 4 % adhesive patch,medicated 1 patch topical DAILY PRN (Reason: pain) Qty: 10 RF: 0 cyclobenzaprine 10 mg tablet 10 mg PO TID Qty: 10 RF: 0 naproxen [Naprosyn] 500 mg tablet 500 mg PO BID Qty: 20 RF: 0 doxycycline hyclate 100 mg capsule 100 mg PO BID Qty: 20 RF: 0 triamcinolone acetonide 0.025 % ointment 1 appl topical BID Qty: 15 RF: 0 sucralfate [Carafate] 100 mg/mL suspension 10 ml PO BID Qty: 420 RF: 0 cyclobenzaprine 10 mg tablet 10 mg PO TID Qty: 9 RF: 0 ketorolac 10 mg tablet 10 mg PO TID PRN (Reason: pain) 5 Days RF: 0 cyclobenzaprine 10 mg tablet 10 mg PO TID PRN (Reason: pain) Qty: 14 RF: 0 ketorolac 10 mg tablet 10 mg PO TID PRN (Reason: pain) 5 Days Qty: 15 RF: 0
[2021-07-31] MEDS: Ibuprofen 600 MG TABLET PO (07:06)
== END 2021-07-31 07:16 | disposition home or self-care (01) ==
PROVIDERS: Emergency Provider Emergency Medicine Emergency Medical Services
DX: M54.5 Low back pain (principal); F12.90 Cannabis use, unspecified, uncomplicated; Z79.899 Other long term (current) drug therapy
CPT/HCPCS: 99283

== ENCOUNTER 2021-08-03 06:59 | Emergency (ER) | payer OTHER, SELFPAY | END 2021-08-03 08:49 | disposition left against medical advice (07) | PROVIDERS: Emergency Provider Emergency Medicine | DX: M79.606 Pain in leg, unspecified (principal) ==

== ENCOUNTER 2021-08-06 05:42 | Emergency (ER) | payer OTHER, SELFPAY ==
[2021-08-06 06:10] VITALS: BP 107/50; PULSE 70; RESP 18; O2SAT 96; BMI 27.4
--- NOTE | 2021-08-06 07:36 | ED.LOWEXIN ---
HPI - Extremity Injury (Lower) General Chief Complaint: Extremity Injury, Lower Stated Complaint: foot pain Time Seen by Provider: 08/06/21 07:35 Source: patient Mode of arrival: ambulatory Limitations: no limitations History of Present Illness HPI Narrative: right groin to thigh pain that started one week ago. Patient has not taking his flexeril. He has not taken any medications. Patient had NSAIDS and flexeril ordered last week. Related Data Home Medications Medication Instructions Recorded Confirmed hydroxyzine HCl 100 mg tablet 100 mg PO NEEDED PRN 08/03/20 08/03/20 Previous Rx's Medication Instructions Recorded hydrocortisone 2.5 % topical cream 1 applic TN BEDTIME PRN #30 g 08/13/20 with perineal applicator (Anusol-HC) polyethylene glycol 3350 17 17 g PO DAILY #119 g 08/13/20 gram/dose oral powder (Miralax) cyclobenzaprine 10 mg tablet 10 mg PO TID PRN #30 tab 08/15/20 tramadol 50 mg tablet 50 mg PO Q8H PRN #12 tab 08/15/20 ketorolac 10 mg tablet 10 mg PO Q6H PRN 5 Days #20 tab 08/17/20 cane #1 ea 09/01/20 cyclobenzaprine 5 mg tablet 5 mg PO TID PRN #10 tab 09/01/20 naproxen 500 mg tablet 500 mg PO BID PRN #14 tab 09/01/20 cyclobenzaprine 5 mg tablet 5 mg PO TID PRN #5 tab 09/08/20 cyclobenzaprine 10 mg tablet 10 mg PO BEDTIME PRN #3 tab 09/17/20 cyclobenzaprine 10 mg tablet 10 mg PO TID PRN #20 tab 09/22/20 ketorolac 10 mg tablet 10 mg PO QID 5 Days #20 tab 09/22/20 cephalexin 500 mg capsule (Keflex) 500 mg PO QID 7 Days #28 cap 09/26/20 doxycycline monohydrate 100 mg 100 mg PO BID 7 Days #14 cap 09/26/20 capsule cyclobenzaprine 10 mg tablet 10 mg PO TID PRN #8 tab 09/29/20 ibuprofen 600 mg tablet 600 mg PO Q8H PRN #15 tab 09/29/20 lidocaine 5 % topical patch 1 patch TOPICAL DAILY #15 ea 11/29/20 (Lidoderm) acetaminophen 500 mg tablet 500 mg PO Q6H PRN #20 tab 10/04/20 (Tylenol Extra Strength) lidocaine 5 % topical patch 1 patch TOPICAL DAILY PRN #30 ea 10/04/20 (Lidoderm) MDD remove after 12 hours methocarbamol 750 mg tablet 750 mg PO Q8H PRN #10 tab 10/04/20 (Robaxin-750) naproxen 500 mg tablet 500 mg PO BID PRN 10 Days #20 tab 10/04/20 ibuprofen 400 mg tablet 400 mg PO Q6H PRN #20 tab 10/30/20 lidocaine 5 % topical patch 1 patch TOPICAL DAILY PRN #1 ea 10/30/20 (Lidoderm) omeprazole 40 mg capsule,delayed 40 mg PO DAILY #20 cap 11/04/20 release sucralfate 1 gram tablet (Carafate) 1 g PO BID #30 tab 11/04/20 mupirocin 2 % topical ointment 1 appl TOPICAL BID #15 g 12/04/20 cyclobenzaprine 10 mg tablet 10 mg PO TID PRN #14 tab 12/07/20 ibuprofen 600 mg tablet 600 mg PO Q6H PRN #30 tab 12/07/20 lidocaine 4 % topical patch 1 patch TOPICAL DAILY PRN #10 ea 12/07/20 omeprazole 20 mg capsule,delayed 20 mg PO DAILY #30 cap 12/15/20 release vitamins no.170-iron 1 tab PO DAILY #30 tab 12/15/20 fumarate 27 mg-folic acid 1 mg tablet cyclobenzaprine 10 mg tablet 10 mg PO TID PRN #20 tab 12/27/20 lidocaine 5 % topical patch 1 patch TOPICAL Q24H #15 ea 12/27/20 ondansetron 4 mg disintegrating 4 mg PO Q8H PRN #20 tab 01/02/21 tablet naloxone 4 mg/actuation nasal 4 mg INTRANASAL Q3M PRN #2 ea 01/08/21 spray (Narcan) cyclobenzaprine 10 mg tablet 10 mg PO TID PRN #10 tab 01/16/21 ketorolac 10 mg tablet 10 mg PO Q8H PRN #10 tab 01/16/21 ketorolac 10 mg tablet 10 mg PO Q6H PRN 5 Days #20 tab 01/27/21 ibuprofen 600 mg tablet 600 mg PO Q6H PRN #20 tab 02/10/21 loperamide 2 mg tablet 2 mg PO Q4H PRN #10 tab 02/10/21 (Anti-Diarrheal (loperamide)) ondansetron HCl 4 mg tablet 4 mg PO Q6H PRN #14 tab 02/10/21 (Zofran) ondansetron 4 mg disintegrating 4 mg PO Q6-8H PRN #14 tab 02/13/21 tablet pantoprazole 20 mg tablet,delayed 20 mg PO DAILY #30 tab 02/13/21 release (Protonix) cyclobenzaprine 10 mg tablet 10 mg PO TID PRN #18 tab 02/16/21 naproxen 500 mg tablet 500 mg PO BID PRN #20 tab 02/16/21 lidocaine 4 % topical patch 1 patch TOPICAL DAILY PRN #10 ea 02/19/21 cyclobenzaprine 10 mg tablet 10 mg PO TID #10 tab 02/27/21 naproxen 500 mg tablet (Naprosyn) 500 mg PO BID #20 tab 02/27/21 cyclobenzaprine 5 mg tablet 5 mg PO TID PRN #10 tab 03/02/21 ibuprofen 600 mg tablet 600 mg PO Q6H PRN #14 tab 03/02/21 lidocaine 5 % topical patch 1 patch TOPICAL DAILY PRN #15 ea 03/02/21 oxycodone 5 mg tablet 5 mg PO Q6H PRN #5 tab 03/02/21 cyclobenzaprine 10 mg tablet 10 mg PO TID PRN #10 tab 03/28/21 lidocaine 4 % topical patch 1 patch TOPICAL BID PRN #10 ea 03/28/21 (Aspercreme (lidocaine)) doxycycline hyclate 100 mg capsule 100 mg PO BID #20 cap 03/31/21 triamcinolone acetonide 0.025 % 1 appl TOPICAL BID #15 g 04/12/21 topical ointment cyclobenzaprine 10 mg tablet 10 mg PO TID PRN #15 tab 05/04/21 lidocaine HCl 4 % topical patch 1 patch TOPICAL BID PRN #30 ea 05/04/21 naproxen 500 mg tablet 500 mg PO BID PRN #20 tab 05/04/21 sucralfate 100 mg/mL oral 10 ml PO BID #420 ml 05/31/21 suspension (Carafate) cyclobenzaprine 10 mg tablet 10 mg PO TID #9 tab 06/10/21 ketorolac 10 mg tablet 10 mg PO TID PRN 5 Days tab 06/10/21 doxycycline hyclate 100 mg tablet 100 mg PO BID #20 tab 07/08/21 cyclobenzaprine 10 mg tablet 10 mg PO TID PRN #14 tab 07/26/21 ketorolac 10 mg tablet 10 mg PO TID PRN 5 Days #15 tab 07/26/21 cyclobenzaprine 10 mg tablet 10 mg PO TID #10 tab 08/06/21 naproxen 500 mg tablet (Naprosyn) 500 mg PO BID #20 tab 08/06/21 famotidine 20 mg tablet (Pepcid) 20 mg PO DAILY PRN #30 tab 08/12/21 cyclobenzaprine 10 mg tablet 10 mg PO TID PRN #14 tab 08/19/21 famotidine 20 mg tablet (Pepcid) 20 mg PO DAILY PRN #30 tab 08/19/21 naproxen 500 mg tablet (Naprosyn) 500 mg PO BID PRN #20 tab 08/19/21 Allergies Allergy/AdvReac Type Severity Reaction Status Date / Time Penicillins [PCN] Allergy Mild RASH Verified 08/19/21 05:37 silver AdvReac Intermediate rash Verified 08/19/21 05:37 [From [facility]] Review of Systems Constitutional: Constitutional: Reports no additional constitutional complaints Eyes: Eyes: Reports no additional eye complaints ENT: Denies dizziness Cardiovascular: Cardiovascular: Reports no additional cardiovascular complaints Respiratory: Respiratory: Reports as per HPI Gastrointestinal: Gastrointestinal: Reports no additional gastrointestinal complaints Musculoskeletal: Musculoskeletal: Reports no additional musculoskeletal complaints Integumentary/Breasts: Skin/Breast: Denies rash Neurologic: Reports system reviewed and no additional complaints, except as documented, Denies dizziness and Denies Sensory deficit (Neuro) Psychiatric: Psychiatric: Denies anxiety PMFSH Past Medical History Medical History Anxiety Bipolar 1 disorder Contusion Depression Foot drop, right foot Heart murmur Schizophrenia Surgical History No pertinent past surgical history Social History Social History Alcohol intake: current Alcohol intake frequency: does not drink Alcohol type: beer and hard liquor Patient Tobacco Use Status: Current everyday Tobacco user Substance Use Type: Marijuana Advance Directives: No Advance Directives Information Provided: No Physical Exam Vital Signs: Vital Signs: Last Vital Signs Pulse 70 08/06/21 06:10 Resp 18 08/06/21 06:10 BP 107/50 L 08/06/21 06:10 Pulse Ox 96 08/06/21 06:10 Body Mass Index 27.4 Const: General: healthy appearing Nutritional Appearance: average body habitus Orientation/consciousness: oriented to person and patient oriented x3 Limitations: no limitations HENMT: Head: Yes normal to inspection Ears: external ears normal General nose exam: Normal external nose present Mouth: Normal oral and palatal mucosa present and oropharynx normal Throat: Yes posterior oropharynx normal Eyes: General: appearance normal, both eyes and all related structures Neck: Other: supple Neck: Yes normal visual inspection Chest: Chest palpation & inspection: normal inspection of the chest Resp: Auscultation: clear to auscultation bilaterally Cardio: Jugular venous distension: no JVD Rate: regular rate Rhythm: regular rhythm Heart sounds: S1 normal heart sound present and S2 normal heart sound present GI: Inspection: Yes normal to inspection Palpation (GI): Soft to palpation, nontender and No hepatosplenomegaly present Auscultation: normal bowel sounds Back/Spine/Pelvis: Other: Right SI and sciatic notch pain Skin: General skin exam: no rashes or lesions noted Neuro: General: oriented to person and patient oriented x3 Cranial nerves: Yes CN's II-XII intact bilaterally Motor exam (neuro): 5/5 motor strength present throughout Sensory Exam: No Sensory deficit (Neuro) Extrem: General: Yes normal to inspection Psych: Appearance: grossly normal Course Reevaluation(s) Reevaluation #1: patient known well to us, he has symptoms consistent with SI and sciatica will reorder NSAIDs and flexeril Time: 07:41 Discharge Plan Discharge Clinical Impression: Lumbar back pain, Sciatica Patient Disposition: Home, Self-Care Prescriptions: New cyclobenzaprine 10 mg tablet 10 mg PO TID Qty: 10 RF: 0 naproxen [Naprosyn] 500 mg tablet 500 mg PO BID Qty: 20 RF: 0 No Action ketorolac 10 mg tablet 10 mg PO Q6H PRN (Reason: pain) 5 Days Qty: 20 RF: 0 naproxen 500 mg tablet 500 mg PO BID PRN (Reason: pain) Qty: 14 RF: 0 cyclobenzaprine 5 mg tablet 5 mg PO TID PRN (Reason: muscle spasm) Qty: 10 RF: 0 (DME) cane Device See Rx Instructions .ROUTE .MEDSUPPLY Qty: 1 RF: 0 cyclobenzaprine 10 mg tablet 10 mg PO BEDTIME PRN (Reason: muscle spasm) Qty: 3 RF: 0 doxycycline monohydrate 100 mg capsule 100 mg PO BID 7 Days Qty: 14 RF: 0 cephalexin [Keflex] 500 mg capsule 500 mg PO QID 7 Days Qty: 28 RF: 0 lidocaine [Lidoderm] 5 % adhesive patch,medicated 1 patch topical DAILY Qty: 15 RF: 0 ibuprofen 600 mg tablet 600 mg PO Q8H PRN (Reason: pain) Qty: 15 RF: 0 cyclobenzaprine 10 mg tablet 10 mg PO TID PRN (Reason: muscle spasm) Qty: 8 RF: 0 lidocaine [Lidoderm] 5 % adhesive patch,medicated 1 patch topical DAILY PRN (Reason: pain) Qty: 1 RF: 0 ibuprofen 400 mg tablet 400 mg PO Q6H PRN (Reason: pain) Qty: 20 RF: 0 omeprazole 40 mg capsule,delayed release(DR/EC) 40 mg PO DAILY Qty: 20 RF: 0 sucralfate [Carafate] 1 gram tablet 1 g PO BID Qty: 30 RF: 0 mupirocin 2 % ointment 1 appl topical BID Qty: 15 RF: 0 omeprazole 20 mg capsule,delayed release(DR/EC) 20 mg PO DAILY Qty: 30 RF: 0 PNV no.170-iron fum-folic acid 27 mg iron- 1 mg tablet 1 tab PO DAILY Qty: 30 RF: 0 cyclobenzaprine 10 mg tablet 10 mg PO TID PRN (Reason: muscle pain or spasm) Qty: 20 RF: 0 lidocaine 5 % adhesive patch,medicated 1 patch topical Q24H Qty: 15 RF: 0 ondansetron 4 mg tablet,disintegrating 4 mg PO Q8H PRN (Reason: nausea and vomiting) Qty: 20 RF: 0 Narcan 4 mg/actuation spray,non-aerosol 4 mg intranasal Q3M PRN (Reason: opioid overdose) Qty: 2 RF: 0 ketorolac 10 mg tablet 10 mg PO Q6H PRN (Reason: pain) 5 Days Qty: 20 RF: 0 ondansetron HCl [Zofran] 4 mg tablet 4 mg PO Q6H PRN (Reason: nausea and vomiting) Qty: 14 RF: 0 loperamide [Anti-Diarrheal (loperamide)] 2 mg tablet 2 mg PO Q4H PRN (Reason: loose stool) Qty: 10 RF: 0 ibuprofen 600 mg tablet 600 mg PO Q6H PRN (Reason: fever or pain) Qty: 20 RF: 0 lidocaine 5 % adhesive patch,medicated 1 patch topical DAILY PRN (Reason: back pain) Qty: 15 RF: 0 oxycodone 5 mg tablet 5 mg PO Q6H PRN (Reason: pain) Qty: 5 RF: 0 ibuprofen 600 mg tablet 600 mg PO Q6H PRN (Reason: pain) Qty: 14 RF: 0 cyclobenzaprine 5 mg tablet 5 mg PO TID PRN (Reason: muscle spasm) Qty: 10 RF: 0 cyclobenzaprine 10 mg tablet 10 mg PO TID PRN (Reason: muscle spasm) Qty: 10 RF: 0 lidocaine [Aspercreme (lidocaine HCl)] 4 % adhesive patch,medicated 1 patch topical BID PRN (Reason: pain) Qty: 10 RF: 0 naproxen 500 mg tablet 500 mg PO BID PRN (Reason: pain) Qty: 20 RF: 0 cyclobenzaprine 10 mg tablet 10 mg PO TID PRN (Reason: pain) Qty: 15 RF: 0 lidocaine HCl 4 % adhesive patch,medicated 1 patch topical BID PRN (Reason: pain) Qty: 30 RF: 0 doxycycline hyclate 100 mg tablet 100 mg PO BID Qty: 20 RF: 0 Atarax 100 mg Tablet 100 mg PO NEEDED PRN (Reason: Anxiety) RF: 0 hydrocortisone [Anusol-HC] 2.5 % cream with perineal applicator 1 applic TN BEDTIME PRN (Reason: pain) Qty: 30 RF: 0 polyethylene glycol 3350 [Miralax] 17 gram/dose powder 17 g PO DAILY Qty: 119 RF: 0 cyclobenzaprine 10 mg tablet 10 mg PO TID PRN (Reason: muscle spasm) Qty: 30 RF: 0 tramadol 50 mg tablet 50 mg PO Q8H PRN (Reason: pain) Qty: 12 RF: 0 cyclobenzaprine 5 mg tablet 5 mg PO TID PRN (Reason: muscle spasm) Qty: 5 RF: 0 cyclobenzaprine 10 mg tablet 10 mg PO TID PRN (Reason: muscle spasm) Qty: 20 RF: 0 ketorolac 10 mg tablet 10 mg PO QID 5 Days Qty: 20 RF: 0 methocarbamol [Robaxin-750] 750 mg tablet 750 mg PO Q8H PRN (Reason: pain, severe) Qty: 10 RF: 0 acetaminophen [Tylenol Extra Strength] 500 mg tablet 500 mg PO Q6H PRN (Reason: pain or fever) Qty: 20 RF: 0 lidocaine [Lidoderm] 5 % adhesive patch,medicated 1 patch topical DAILY MDD remove after 12 hours PRN (Reason: pain) Qty: 30 RF: 0 naproxen 500 mg tablet 500 mg PO BID PRN (Reason: pain) 10 Days Qty: 20 RF: 0 cyclobenzaprine 10 mg tablet 10 mg PO TID PRN (Reason: muscle spasm) Qty: 14 RF: 0 lidocaine 4 % adhesive patch,medicated 1 patch topical DAILY PRN (Reason: pain) Qty: 10 RF: 0 ibuprofen 600 mg tablet 600 mg PO Q6H PRN (Reason: pain) Qty: 30 RF: 0 ketorolac 10 mg tablet 10 mg PO Q8H PRN (Reason: pain) Qty: 10 RF: 0 cyclobenzaprine 10 mg tablet 10 mg PO TID PRN (Reason: muscle spasm) Qty: 10 RF: 0 pantoprazole [Protonix] 20 mg tablet,delayed release (DR/EC) 20 mg PO DAILY Qty: 30 RF: 0 ondansetron 4 mg tablet,disintegrating 4 mg PO Q6-8H PRN (Reason: nausea and vomiting) Qty: 14 RF: 0 cyclobenzaprine 10 mg tablet 10 mg PO TID PRN (Reason: pain) Qty: 18 RF: 0 naproxen 500 mg tablet 500 mg PO BID PRN (Reason: pain) Qty: 20 RF: 0 lidocaine 4 % adhesive patch,medicated 1 patch topical DAILY PRN (Reason: pain) Qty: 10 RF: 0 cyclobenzaprine 10 mg tablet 10 mg PO TID Qty: 10 RF: 0 naproxen [Naprosyn] 500 mg tablet 500 mg PO BID Qty: 20 RF: 0 doxycycline hyclate 100 mg capsule 100 mg PO BID Qty: 20 RF: 0 triamcinolone acetonide 0.025 % ointment 1 appl topical BID Qty: 15 RF: 0 sucralfate [Carafate] 100 mg/mL suspension 10 ml PO BID Qty: 420 RF: 0 cyclobenzaprine 10 mg tablet 10 mg PO TID Qty: 9 RF: 0 ketorolac 10 mg tablet 10 mg PO TID PRN (Reason: pain) 5 Days RF: 0 cyclobenzaprine 10 mg tablet 10 mg PO TID PRN (Reason: pain) Qty: 14 RF: 0 ketorolac 10 mg tablet 10 mg PO TID PRN (Reason: pain) 5 Days Qty: 15 RF: 0 cyclobenzaprine 10 mg tablet 10 mg PO TID PRN (Reason: muscle spasm) Qty: 14 RF: 0 famotidine [Pepcid] 20 mg tablet 20 mg PO DAILY PRN (Reason: abdominal discomfort) Qty: 30 RF: 0 naproxen [Naprosyn] 500 mg tablet 500 mg PO BID PRN (Reason: pain) Qty: 20 RF: 0 famotidine [Pepcid] 20 mg tablet 20 mg PO DAILY PRN (Reason: abdominal discomfort) Qty: 30 RF: 0 Referrals: Physician,Unknown J [Primary Care Provider] - 1 week Interventions: ED Discharge Assessment Last Done: 08/06/21 07:52 Discharge Date/Time: 08/06/21 07:52
== END 2021-08-06 07:52 | disposition home or self-care (01) ==
PROVIDERS: Emergency Provider Emergency Medicine
DX: M54.40 Lumbago with sciatica, unspecified side (principal)
CPT/HCPCS: 99283

== ENCOUNTER 2021-08-12 05:05 | Emergency (ER) | payer OTHER, SELFPAY ==
[2021-08-12 05:15] VITALS: BP 118/62; PULSE 70; RESP 20; TEMP 35.8; O2SAT 100; BMI 26.6
[2021-08-12 05:52] LABS: MANUAL DIFF FLAG NO
[2021-08-12 05:53] LABS: Basophils Absolute Auto 0.1 X10*3/uL (0.0-0.2); Basophils Percent Auto 0.7 % (0-2); Eosinophils Absolute Auto 0.4 X10*3/uL (0.0-0.4); Eosinophils Percent Auto 4.3 % (0-4); Hematocrit 41.3 % (42-52); Hemoglobin 13.8 g/dl (14.0-18.0); Imm Gran Abs Auto 0.02 X10*3/uL (0.00-0.03); Imm Gran Pct Auto 0.2 % (0.0-0.4); Lymphocytes Absolute Auto 2.4 X10*3/uL (1.2-4.9); Lymphocytes Percent Auto 28.8 % (20-40); Mean Corpuscular HGB Conc 33.4 g/dl (31.0-36.0); Mean Corpuscular Hemoglobin 33.5 pg (27.0-33.0); Mean Corpuscular Volume 100.2 fL (80-98); Mean Platelet Volume 9.4 fL (9.4-12.4); Monocytes Absolute Auto 0.5 X10*3/uL (0.1-1.2); Monocytes Percent Auto 5.5 % (2-11); Neutrophils Percent Auto 60.5 % (45-73); Platelet Count 195 X10*3/uL (160-400); Red Blood Count 4.12 X10*6/uL (4.60-5.80); Red Cell Distribution Width 13.2 % (11.0-16.0); White Blood Count 8.3 X10*3/uL (4.8-10.8)
[2021-08-12 06:12] LABS: Alanine Aminotransferase 57 U/L (0-40); Albumin Level 4.3 g/dL (3.5-5.0); Alkaline Phosphatase 58 U/L (39-117); Anion Gap 9 (12-20); Aspartate Amino Transferase 28 U/L (5-37); Bilirubin Direct 0.2 mg/dL (0.0-0.5); Bilirubin Total 0.6 mg/dL (0.0-1.0); Blood Urea Nitrogen 10 mg/dL (9-16); Carbon Dioxide 32 mmol/L (22-29); Chloride 104 mmol/L (96-108); Creatinine Clr Calc Pharmacy 92.6; Estimated Glomerular Filt Rate > 60; Glucose Random 98 mg/dL (60-115); Lipase 162 U/L (8-78); Potassium 4.5 mmol/L (3.3-5.1); Sodium 140 mmol/L (135-145); Total Protein 6.9 g/dL (6.5-8.0)
--- NOTE | 2021-08-12 06:39 | ED.ABDPAIN ---
HPI - Abdominal Pain General Chief Complaint: Abdominal Pain Stated Complaint: Abdominal Pain Time Seen by Provider: 08/12/21 06:39 Source: patient and old records reviewed Mode of arrival: ambulatory Limitations: no limitations History of Present Illness MD elicited complaint: abdominal pain Pertinent past history: gastritis Onset (ago): minute(s) Pain Consistency: constant Location: epigastric Severity: mild Quality: aching and dull Radiation: none Migration to: no migration Exacerbating factors: other (drank coffee on empty stomach) Relieving factors: nothing Context: history of similar episodes Associated symptoms: denies other symptoms Related Data Home Medications Medication Instructions Recorded Confirmed hydroxyzine HCl 100 mg tablet 100 mg PO NEEDED PRN 08/03/20 08/03/20 Previous Rx's Medication Instructions Recorded hydrocortisone 2.5 % topical cream 1 applic IA BEDTIME PRN #30 g 08/13/20 with perineal applicator (Anusol-HC) polyethylene glycol 3350 17 17 g PO DAILY #119 g 08/13/20 gram/dose oral powder (Miralax) cyclobenzaprine 10 mg tablet 10 mg PO TID PRN #30 tab 08/15/20 tramadol 50 mg tablet 50 mg PO Q8H PRN #12 tab 08/15/20 ketorolac 10 mg tablet 10 mg PO Q6H PRN 5 Days #20 tab 08/17/20 cane #1 ea 09/01/20 cyclobenzaprine 5 mg tablet 5 mg PO TID PRN #10 tab 09/01/20 naproxen 500 mg tablet 500 mg PO BID PRN #14 tab 09/01/20 cyclobenzaprine 5 mg tablet 5 mg PO TID PRN #5 tab 09/08/20 cyclobenzaprine 10 mg tablet 10 mg PO BEDTIME PRN #3 tab 09/17/20 cyclobenzaprine 10 mg tablet 10 mg PO TID PRN #20 tab 09/22/20 ketorolac 10 mg tablet 10 mg PO QID 5 Days #20 tab 09/22/20 cephalexin 500 mg capsule (Keflex) 500 mg PO QID 7 Days #28 cap 09/26/20 doxycycline monohydrate 100 mg 100 mg PO BID 7 Days #14 cap 09/26/20 capsule cyclobenzaprine 10 mg tablet 10 mg PO TID PRN #8 tab 09/29/20 ibuprofen 600 mg tablet 600 mg PO Q8H PRN #15 tab 09/29/20 lidocaine 5 % topical patch 1 patch TOPICAL DAILY #15 ea 09/29/20 (Lidoderm) acetaminophen 500 mg tablet 500 mg PO Q6H PRN #20 tab 10/04/20 (Tylenol Extra Strength) lidocaine 5 % topical patch 1 patch TOPICAL DAILY PRN #30 ea 10/04/20 (Lidoderm) MDD remove after 12 hours methocarbamol 750 mg tablet 750 mg PO Q8H PRN #10 tab 10/04/20 (Robaxin-750) naproxen 500 mg tablet 500 mg PO BID PRN 10 Days #20 tab 10/04/20 ibuprofen 400 mg tablet 400 mg PO Q6H PRN #20 tab 10/30/20 lidocaine 5 % topical patch 1 patch TOPICAL DAILY PRN #1 ea 10/30/20 (Lidoderm) omeprazole 40 mg capsule,delayed 40 mg PO DAILY #20 cap 11/04/20 release sucralfate 1 gram tablet (Carafate) 1 g PO BID #30 tab 11/04/20 mupirocin 2 % topical ointment 1 appl TOPICAL BID #15 g 12/04/20 cyclobenzaprine 10 mg tablet 10 mg PO TID PRN #14 tab 12/07/20 ibuprofen 600 mg tablet 600 mg PO Q6H PRN #30 tab 12/07/20 lidocaine 4 % topical patch 1 patch TOPICAL DAILY PRN #10 ea 12/07/20 omeprazole 20 mg capsule,delayed 20 mg PO DAILY #30 cap 12/15/20 release vitamins no.170-iron 1 tab PO DAILY #30 tab 12/15/20 fumarate 27 mg-folic acid 1 mg tablet cyclobenzaprine 10 mg tablet 10 mg PO TID PRN #20 tab 12/27/20 lidocaine 5 % topical patch 1 patch TOPICAL Q24H #15 ea 12/27/20 ondansetron 4 mg disintegrating 4 mg PO Q8H PRN #20 tab 01/02/21 tablet naloxone 4 mg/actuation nasal 4 mg INTRANASAL Q3M PRN #2 ea 01/08/21 spray (Narcan) cyclobenzaprine 10 mg tablet 10 mg PO TID PRN #10 tab 01/16/21 ketorolac 10 mg tablet 10 mg PO Q8H PRN #10 tab 01/16/21 ketorolac 10 mg tablet 10 mg PO Q6H PRN 5 Days #20 tab 01/27/21 ibuprofen 600 mg tablet 600 mg PO Q6H PRN #20 tab 02/10/21 loperamide 2 mg tablet 2 mg PO Q4H PRN #10 tab 02/10/21 (Anti-Diarrheal (loperamide)) ondansetron HCl 4 mg tablet 4 mg PO Q6H PRN #14 tab 02/10/21 (Zofran) ondansetron 4 mg disintegrating 4 mg PO Q6-8H PRN #14 tab 02/13/21 tablet pantoprazole 20 mg tablet,delayed 20 mg PO DAILY #30 tab 02/13/21 release (Protonix) cyclobenzaprine 10 mg tablet 10 mg PO TID PRN #18 tab 02/16/21 naproxen 500 mg tablet 500 mg PO BID PRN #20 tab 02/16/21 lidocaine 4 % topical patch 1 patch TOPICAL DAILY PRN #10 ea 02/19/21 cyclobenzaprine 10 mg tablet 10 mg PO TID #10 tab 02/27/21 naproxen 500 mg tablet (Naprosyn) 500 mg PO BID #20 tab 02/27/21 cyclobenzaprine 5 mg tablet 5 mg PO TID PRN #10 tab 03/02/21 ibuprofen 600 mg tablet 600 mg PO Q6H PRN #14 tab 03/02/21 lidocaine 5 % topical patch 1 patch TOPICAL DAILY PRN #15 ea 03/02/21 oxycodone 5 mg tablet 5 mg PO Q6H PRN #5 tab 03/02/21 cyclobenzaprine 10 mg tablet 10 mg PO TID PRN #10 tab 03/28/21 lidocaine 4 % topical patch 1 patch TOPICAL BID PRN #10 ea 03/28/21 (Aspercreme (lidocaine)) doxycycline hyclate 100 mg capsule 100 mg PO BID #20 cap 03/31/21 triamcinolone acetonide 0.025 % 1 appl TOPICAL BID #15 g 04/12/21 topical ointment cyclobenzaprine 10 mg tablet 10 mg PO TID PRN #15 tab 05/04/21 lidocaine HCl 4 % topical patch 1 patch TOPICAL BID PRN #30 ea 05/04/21 naproxen 500 mg tablet 500 mg PO BID PRN #20 tab 05/04/21 sucralfate 100 mg/mL oral 10 ml PO BID #420 ml 05/31/21 suspension (Carafate) cyclobenzaprine 10 mg tablet 10 mg PO TID #9 tab 06/10/21 ketorolac 10 mg tablet 10 mg PO TID PRN 5 Days tab 06/10/21 doxycycline hyclate 100 mg tablet 100 mg PO BID #20 tab 07/08/21 cyclobenzaprine 10 mg tablet 10 mg PO TID PRN #14 tab 07/26/21 ketorolac 10 mg tablet 10 mg PO TID PRN 5 Days #15 tab 07/26/21 cyclobenzaprine 10 mg tablet 10 mg PO TID #10 tab 08/06/21 naproxen 500 mg tablet (Naprosyn) 500 mg PO BID #20 tab 08/06/21 famotidine 20 mg tablet (Pepcid) 20 mg PO DAILY PRN #30 tab 08/12/21 Allergies Allergy/AdvReac Type Severity Reaction Status Date / Time Penicillins [PCN] Allergy Mild RASH Verified 07/26/21 06:41 silver AdvReac Intermediate rash Verified 07/26/21 06:41 [From [facility]ESH] Review of Systems Review of Systems Constitutional : No Weight loss, No Fever, No Chills ENT/Mouth : No sore throat, No Rhinorrhea Eyes: No Swelling, No Redness Cardiovascular : No Chest Pain, No SOB, NoEdema Respiratory : No Cough, No Sputum, No Wheezing Gastrointestinal : no Nausea, no Vomiting,no Diarrhea, positive abdominal Pain, No Hematochezia, No Melena Genitourinary : No Dysuria, No Urinary Frequency, No Hematuria, No Urgency Musculoskeletal : No joint pain, No Myalgias, No Joint Swelling Skin : No Skin Lesions, No rash Neuro : No Weakness, No Numbness, No Dizziness, No Headache Psych : No Anxiety/Panic, No Depression Heme/Lymph: No Bruising, No Lymphadenopathy Endocrine : No Polyuria, No Polydipsia All other systems reviewed and are negative. Physical Exam Vital Signs: Vital Signs: Last Vital Signs Temp 96.5 F L 08/12/21 05:15 Pulse 70 08/12/21 05:15 Resp 20 08/12/21 05:15 BP 118/62 08/12/21 05:15 Pulse Ox 100 08/12/21 05:15 Body Mass Index 26.6 Appearance: Alert. Oriented X3. No acute distress. Eyes: Pupils equal, round and reactive to light. ENT: Pharynx normal. Neck: Normal inspection. Neck supple. CVS: Normal heart rate and rhythm. Pulses normal. Respiratory: No respiratory distress. Breath sounds normal. Abdomen: Soft and nontender. Skin: Skin warm and dry. Normal skin color. Normal skin turgor. Extremities: No lower extremity edema. No calf ttp Neuro: Oriented X 3. No motor deficit. No sensory deficit. MDM - Abdominal Pain MDM Narrative Medical decision making narrative: 36 yo male well known to us comes in with c/o upper abdominal pain started just [employer] after drinking coffee on empty stomach - he has no n/v/d he is tolerating PO in no distress talking other pateints and he is walking around the ED in no pain. Suspect gastritis he does have mild elevated in his lipase but when I palpate his abdomen he has no pain. Will start on pepcid - he has been Rx meds multiple times in the past but he states he has none now. Lab Data Result diagrams: 08/12/21 05:48 08/12/21 05:48 Labs: Lab Results 08/12/21 08/12/21 Range/Units 05:48 05:48 WBC 8.3 (4.8-10.8) X10*3/uL RBC 4.12 L (4.60-5.80) X10*6/uL Hgb 13.8 L (14.0-18.0) g/dl Hct 41.3 L (42-52) % MCV 100.2 H (80-98) fL MCH 33.5 H (27.0-33.0) pg MCHC 33.4 (31.0-36.0) g/dl RDW 13.2 (11.0-16.0) % Plt Count 195 D (160-400) X10*3/uL MPV 9.4 (9.4-12.4) fL Immature Gran % (Auto) 0.2 (0.0-0.4) % Neut % (Auto) 60.5 (45-73) % Lymph % (Auto) 28.8 (20-40) % [place] % (Auto) 5.5 (2-11) % Eos % (Auto) 4.3 H (0-4) % Baso % (Auto) 0.7 (0-2) % Lymph # (Auto) 2.4 (1.2-4.9) X10*3/uL [place] # (Auto) 0.5 (0.1-1.2) X10*3/uL Eos # (Auto) 0.4 (0.0-0.4) X10*3/uL Baso # (Auto) 0.1 (0.0-0.2) X10*3/uL Abs Immat Gran (auto) 0.02 (0.00-0.03) X10*3/uL Absolute Neuts (auto) 5.0 (2.0-8.3) X10*3/uL Absolute Nucleated RBC 0.000 (0.0-0.012) X10*3/uL Nucleated RBC % (auto) 0.0 (0.0-0.2) /100WBC Sodium 140 (135-145) mmol/L Potassium 4.5 (3.3-5.1) mmol/L Chloride 104 (96-108) mmol/L Carbon Dioxide 32 H (22-29) mmol/L Anion Gap 9 L (12-20) BUN 10 (9-16) mg/dL Creatinine 1.03 (0.5-1.4) mg/dL Estim Creat Clear Calc 92.6 Estimated GFR > 60 Random Glucose 98 (60-115) mg/dL Calcium 9.0 (8.4-10.2) mg/dL Total Bilirubin 0.6 (0.0-1.0) mg/dL Direct Bilirubin 0.2 (0.0-0.5) mg/dL AST 28 D (5-37) U/L ALT 57 H (0-40) U/L Alkaline Phosphatase 58 (39-117) U/L Total Protein 6.9 (6.5-8.0) g/dL Albumin 4.3 (3.5-5.0) g/dL Lipase 162 H (8-78) U/L Discharge Plan Discharge Clinical Impression: Gastritis Qualifiers: Gastritis type: unspecified gastritis Chronicity: acute Gastritis bleeding: without bleeding Qualified Code(s): K29.00 - Acute gastritis without bleeding Patient Disposition: Home, Self-Care Instructions: Gastritis (ED) Additional Instructions: return to ED for any worsening symptoms or concerns Prescriptions: New famotidine [Pepcid] 20 mg tablet 20 mg PO DAILY PRN (Reason: abdominal discomfort) Qty: 30 RF: 0 No Action ketorolac 10 mg tablet 10 mg PO Q6H PRN (Reason: pain) 5 Days Qty: 20 RF: 0 naproxen 500 mg tablet 500 mg PO BID PRN (Reason: pain) Qty: 14 RF: 0 cyclobenzaprine 5 mg tablet 5 mg PO TID PRN (Reason: muscle spasm) Qty: 10 RF: 0 (DME) cane Device See Rx Instructions .ROUTE .MEDSUPPLY Qty: 1 RF: 0 cyclobenzaprine 10 mg tablet 10 mg PO BEDTIME PRN (Reason: muscle spasm) Qty: 3 RF: 0 doxycycline monohydrate 100 mg capsule 100 mg PO BID 7 Days Qty: 14 RF: 0 cephalexin [Keflex] 500 mg capsule 500 mg PO QID 7 Days Qty: 28 RF: 0 lidocaine [Lidoderm] 5 % adhesive patch,medicated 1 patch topical DAILY Qty: 15 RF: 0 ibuprofen 600 mg tablet 600 mg PO Q8H PRN (Reason: pain) Qty: 15 RF: 0 cyclobenzaprine 10 mg tablet 10 mg PO TID PRN (Reason: muscle spasm) Qty: 8 RF: 0 lidocaine [Lidoderm] 5 % adhesive patch,medicated 1 patch topical DAILY PRN (Reason: pain) Qty: 1 RF: 0 ibuprofen 400 mg tablet 400 mg PO Q6H PRN (Reason: pain) Qty: 20 RF: 0 omeprazole 40 mg capsule,delayed release(DR/EC) 40 mg PO DAILY Qty: 20 RF: 0 sucralfate [Carafate] 1 gram tablet 1 g PO BID Qty: 30 RF: 0 mupirocin 2 % ointment 1 appl topical BID Qty: 15 RF: 0 omeprazole 20 mg capsule,delayed release(DR/EC) 20 mg PO DAILY Qty: 30 RF: 0 PNV no.170-iron fum-folic acid 27 mg iron- 1 mg tablet 1 tab PO DAILY Qty: 30 RF: 0 cyclobenzaprine 10 mg tablet 10 mg PO TID PRN (Reason: muscle pain or spasm) Qty: 20 RF: 0 lidocaine 5 % adhesive patch,medicated 1 patch topical Q24H Qty: 15 RF: 0 ondansetron 4 mg tablet,disintegrating 4 mg PO Q8H PRN (Reason: nausea and vomiting) Qty: 20 RF: 0 Narcan 4 mg/actuation spray,non-aerosol 4 mg intranasal Q3M PRN (Reason: opioid overdose) Qty: 2 RF: 0 ketorolac 10 mg tablet 10 mg PO Q6H PRN (Reason: pain) 5 Days Qty: 20 RF: 0 ondansetron HCl [Zofran] 4 mg tablet 4 mg PO Q6H PRN (Reason: nausea and vomiting) Qty: 14 RF: 0 loperamide [Anti-Diarrheal (loperamide)] 2 mg tablet 2 mg PO Q4H PRN (Reason: loose stool) Qty: 10 RF: 0 ibuprofen 600 mg tablet 600 mg PO Q6H PRN (Reason: fever or pain) Qty: 20 RF: 0 lidocaine 5 % adhesive patch,medicated 1 patch topical DAILY PRN (Reason: back pain) Qty: 15 RF: 0 oxycodone 5 mg tablet 5 mg PO Q6H PRN (Reason: pain) Qty: 5 RF: 0 ibuprofen 600 mg tablet 600 mg PO Q6H PRN (Reason: pain) Qty: 14 RF: 0 cyclobenzaprine 5 mg tablet 5 mg PO TID PRN (Reason: muscle spasm) Qty: 10 RF: 0 cyclobenzaprine 10 mg tablet 10 mg PO TID PRN (Reason: muscle spasm) Qty: 10 RF: 0 lidocaine [Aspercreme (lidocaine HCl)] 4 % adhesive patch,medicated 1 patch topical BID PRN (Reason: pain) Qty: 10 RF: 0 naproxen 500 mg tablet 500 mg PO BID PRN (Reason: pain) Qty: 20 RF: 0 cyclobenzaprine 10 mg tablet 10 mg PO TID PRN (Reason: pain) Qty: 15 RF: 0 lidocaine HCl 4 % adhesive patch,medicated 1 patch topical BID PRN (Reason: pain) Qty: 30 RF: 0 doxycycline hyclate 100 mg tablet 100 mg PO BID Qty: 20 RF: 0 Atarax 100 mg Tablet 100 mg PO NEEDED PRN (Reason: Anxiety) RF: 0 hydrocortisone [Anusol-HC] 2.5 % cream with perineal applicator 1 applic IA BEDTIME PRN (Reason: pain) Qty: 30 RF: 0 polyethylene glycol 3350 [Miralax] 17 gram/dose powder 17 g PO DAILY Qty: 119 RF: 0 cyclobenzaprine 10 mg tablet 10 mg PO TID PRN (Reason: muscle spasm) Qty: 30 RF: 0 tramadol 50 mg tablet 50 mg PO Q8H PRN (Reason: pain) Qty: 12 RF: 0 cyclobenzaprine 5 mg tablet 5 mg PO TID PRN (Reason: muscle spasm) Qty: 5 RF: 0 cyclobenzaprine 10 mg tablet 10 mg PO TID PRN (Reason: muscle spasm) Qty: 20 RF: 0 ketorolac 10 mg tablet 10 mg PO QID 5 Days Qty: 20 RF: 0 methocarbamol [Robaxin-750] 750 mg tablet 750 mg PO Q8H PRN (Reason: pain, severe) Qty: 10 RF: 0 acetaminophen [Tylenol Extra Strength] 500 mg tablet 500 mg PO Q6H PRN (Reason: pain or fever) Qty: 20 RF: 0 lidocaine [Lidoderm] 5 % adhesive patch,medicated 1 patch topical DAILY MDD remove after 12 hours PRN (Reason: pain) Qty: 30 RF: 0 naproxen 500 mg tablet 500 mg PO BID PRN (Reason: pain) 10 Days Qty: 20 RF: 0 cyclobenzaprine 10 mg tablet 10 mg PO TID PRN (Reason: muscle spasm) Qty: 14 RF: 0 lidocaine 4 % adhesive patch,medicated 1 patch topical DAILY PRN (Reason: pain) Qty: 10 RF: 0 ibuprofen 600 mg tablet 600 mg PO Q6H PRN (Reason: pain) Qty: 30 RF: 0 ketorolac 10 mg tablet 10 mg PO Q8H PRN (Reason: pain) Qty: 10 RF: 0 cyclobenzaprine 10 mg tablet 10 mg PO TID PRN (Reason: muscle spasm) Qty: 10 RF: 0 pantoprazole [Protonix] 20 mg tablet,delayed release (DR/EC) 20 mg PO DAILY Qty: 30 RF: 0 ondansetron 4 mg tablet,disintegrating 4 mg PO Q6-8H PRN (Reason: nausea and vomiting) Qty: 14 RF: 0 cyclobenzaprine 10 mg tablet 10 mg PO TID PRN (Reason: pain) Qty: 18 RF: 0 naproxen 500 mg tablet 500 mg PO BID PRN (Reason: pain) Qty: 20 RF: 0 lidocaine 4 % adhesive patch,medicated 1 patch topical DAILY PRN (Reason: pain) Qty: 10 RF: 0 cyclobenzaprine 10 mg tablet 10 mg PO TID Qty: 10 RF: 0 naproxen [Naprosyn] 500 mg tablet 500 mg PO BID Qty: 20 RF: 0 doxycycline hyclate 100 mg capsule 100 mg PO BID Qty: 20 RF: 0 triamcinolone acetonide 0.025 % ointment 1 appl topical BID Qty: 15 RF: 0 sucralfate [Carafate] 100 mg/mL suspension 10 ml PO BID Qty: 420 RF: 0 cyclobenzaprine 10 mg tablet 10 mg PO TID Qty: 9 RF: 0 ketorolac 10 mg tablet 10 mg PO TID PRN (Reason: pain) 5 Days RF: 0 cyclobenzaprine 10 mg tablet 10 mg PO TID PRN (Reason: pain) Qty: 14 RF: 0 ketorolac 10 mg tablet 10 mg PO TID PRN (Reason: pain) 5 Days Qty: 15 RF: 0 cyclobenzaprine 10 mg tablet 10 mg PO TID Qty: 10 RF: 0 naproxen [Naprosyn] 500 mg tablet 500 mg PO BID Qty: 20 RF: 0 PMFSH Past Medical History Attestation statement: The following information was validated with the patient. Medical History Anxiety Bipolar 1 disorder Contusion Depression Foot drop, right foot Heart murmur Schizophrenia Surgical History No pertinent past surgical history Social History Social History Alcohol intake: unknown Substance Use Type: Marijuana Advance Directives: No Advance Directives Information Provided: No
[2021-08-12] MEDS: Magnesium Hydrox/Alum Hydrox 30 ML ORAL.SUSP PO (07:39)
[2021-08-12] MEDS: Famotidine 20 MG TABLET PO (07:39)
[2021-08-12] MEDS: Lidocaine HCl Viscous 2 % 15 ML SOLUTION MUCOUS MEM (07:39)
== END 2021-08-12 07:56 | disposition home or self-care (01) ==
PROVIDERS: Emergency Provider Emergency Medicine
DX: K29.00 Acute gastritis without bleeding (principal); R10.13 Epigastric pain; F12.90 Cannabis use, unspecified, uncomplicated; Z79.899 Other long term (current) drug therapy
CPT/HCPCS: 36415; 80053; 82248; 83690; 85025; 99283

== ENCOUNTER 2021-08-19 04:56 | Emergency (ER) | payer OTHER, SELFPAY ==
[2021-08-19 05:37] VITALS: BP 126/63; PULSE 60; RESP 18; TEMP 36.8; O2SAT 100; BMI 25.5
[2021-08-19 06:15] LABS: MANUAL DIFF FLAG NO
[2021-08-19 06:16] LABS: Basophils Percent Auto 0.5 % (0-2); Eosinophils Absolute Auto 0.3 X10*3/uL (0.0-0.4); Eosinophils Percent Auto 3.9 % (0-4); Hemoglobin 13.7 g/dl (14.0-18.0); Imm Gran Abs Auto 0.02 X10*3/uL (0.00-0.03); Imm Gran Pct Auto 0.3 % (0.0-0.4); Lymphocytes Absolute Auto 1.8 X10*3/uL (1.2-4.9); Lymphocytes Percent Auto 28.2 % (20-40); Mean Corpuscular HGB Conc 34.3 g/dl (31.0-36.0); Mean Corpuscular Hemoglobin 33.7 pg (27.0-33.0); Mean Corpuscular Volume 98.5 fL (80-98); Mean Platelet Volume 9.7 fL (9.4-12.4); Monocytes Absolute Auto 0.4 X10*3/uL (0.1-1.2); Monocytes Percent Auto 6.9 % (2-11); Neutrophils Absolute Auto 3.8 X10*3/uL (2.0-8.3); Neutrophils Percent Auto 60.2 % (45-73); Platelet Count 187 X10*3/uL (160-400); Red Blood Count 4.06 X10*6/uL (4.60-5.80); Red Cell Distribution Width 13.1 % (11.0-16.0); White Blood Count 6.3 X10*3/uL (4.8-10.8)
[2021-08-19 06:35] LABS: Alanine Aminotransferase 30 U/L (0-40); Albumin Level 4.3 g/dL (3.5-5.0); Alkaline Phosphatase 61 U/L (39-117); Anion Gap 13 (12-20); Aspartate Amino Transferase 28 U/L (5-37); Bilirubin Total 0.7 mg/dL (0.0-1.0); Blood Urea Nitrogen 10 mg/dL (9-16); Calcium 9.2 mg/dL (8.4-10.2); Carbon Dioxide 28 mmol/L (22-29); Chloride 104 mmol/L (96-108); Creatinine Clr Calc Pharmacy 97.4; Estimated Glomerular Filt Rate > 60; Glucose Random 87 mg/dL (60-115); Potassium 4.1 mmol/L (3.3-5.1); Sodium 141 mmol/L (135-145); Total Protein 6.9 g/dL (6.5-8.0)
--- NOTE | 2021-08-19 06:38 | ED_ITS ---
HPI - Abdominal Pain General Chief Complaint: Abdominal Pain Stated Complaint: back pain/multiple complaints Time Seen by Provider: 08/19/21 06:38 Source: patient Mode of arrival: ambulatory Limitations: no limitations History of Present Illness MD elicited complaint: abdominal pain Pertinent past history: gastritis Onset (ago): week(s) (1) Pain Consistency: intermittent Location: epigastric Severity: mild Quality: dull and burning Radiation: none Migration to: no migration Exacerbating factors: eating Relieving factors: nothing Context: history of similar episodes Associated symptoms: denies other symptoms Related Data Home Medications Medication Instructions Recorded Confirmed hydroxyzine HCl 100 mg tablet 100 mg PO NEEDED PRN 08/03/20 08/03/20 Previous Rx's Medication Instructions Recorded hydrocortisone 2.5 % topical cream 1 applic [place] BEDTIME PRN #30 g 08/13/20 with perineal applicator (Anusol-HC) polyethylene glycol 3350 17 17 g PO DAILY #119 g 08/13/20 gram/dose oral powder (Miralax) cyclobenzaprine 10 mg tablet 10 mg PO TID PRN #30 tab 08/15/20 tramadol 50 mg tablet 50 mg PO Q8H PRN #12 tab 08/15/20 ketorolac 10 mg tablet 10 mg PO Q6H PRN 5 Days #20 tab 08/17/20 cane #1 ea 09/01/20 cyclobenzaprine 5 mg tablet 5 mg PO TID PRN #10 tab 09/01/20 naproxen 500 mg tablet 500 mg PO BID PRN #14 tab 09/01/20 cyclobenzaprine 5 mg tablet 5 mg PO TID PRN #5 tab 09/08/20 cyclobenzaprine 10 mg tablet 10 mg PO BEDTIME PRN #3 tab 09/17/20 cyclobenzaprine 10 mg tablet 10 mg PO TID PRN #20 tab 09/22/20 ketorolac 10 mg tablet 10 mg PO QID 5 Days #20 tab 09/22/20 cephalexin 500 mg capsule (Keflex) 500 mg PO QID 7 Days #28 cap 09/26/20 doxycycline monohydrate 100 mg 100 mg PO BID 7 Days #14 cap 09/26/20 capsule cyclobenzaprine 10 mg tablet 10 mg PO TID PRN #8 tab 09/29/20 ibuprofen 600 mg tablet 600 mg PO Q8H PRN #15 tab 09/29/20 lidocaine 5 % topical patch 1 patch TOPICAL DAILY #15 ea 09/29/20 (Lidoderm) acetaminophen 500 mg tablet 500 mg PO Q6H PRN #20 tab 10/04/20 (Tylenol Extra Strength) lidocaine 5 % topical patch 1 patch TOPICAL DAILY PRN #30 ea 10/04/20 (Lidoderm) MDD remove after 12 hours methocarbamol 750 mg tablet 750 mg PO Q8H PRN #10 tab 10/04/20 (Robaxin-750) naproxen 500 mg tablet 500 mg PO BID PRN 10 Days #20 tab 10/04/20 ibuprofen 400 mg tablet 400 mg PO Q6H PRN #20 tab 10/30/20 lidocaine 5 % topical patch 1 patch TOPICAL DAILY PRN #1 ea 10/30/20 (Lidoderm) omeprazole 40 mg capsule,delayed 40 mg PO DAILY #20 cap 11/04/20 release sucralfate 1 gram tablet (Carafate) 1 g PO BID #30 tab 11/04/20 mupirocin 2 % topical ointment 1 appl TOPICAL BID #15 g 12/04/20 cyclobenzaprine 10 mg tablet 10 mg PO TID PRN #14 tab 12/07/20 ibuprofen 600 mg tablet 600 mg PO Q6H PRN #30 tab 12/07/20 lidocaine 4 % topical patch 1 patch TOPICAL DAILY PRN #10 ea 12/07/20 omeprazole 20 mg capsule,delayed 20 mg PO DAILY #30 cap 12/15/20 release vitamins no.170-iron 1 tab PO DAILY #30 tab 12/15/20 fumarate 27 mg-folic acid 1 mg tablet cyclobenzaprine 10 mg tablet 10 mg PO TID PRN #20 tab 12/27/20 lidocaine 5 % topical patch 1 patch TOPICAL Q24H #15 ea 12/27/20 ondansetron 4 mg disintegrating 4 mg PO Q8H PRN #20 tab 01/02/21 tablet naloxone 4 mg/actuation nasal 4 mg INTRANASAL Q3M PRN #2 ea 01/08/21 spray (Narcan) cyclobenzaprine 10 mg tablet 10 mg PO TID PRN #10 tab 01/16/21 ketorolac 10 mg tablet 10 mg PO Q8H PRN #10 tab 01/16/21 ketorolac 10 mg tablet 10 mg PO Q6H PRN 5 Days #20 tab 01/27/21 ibuprofen 600 mg tablet 600 mg PO Q6H PRN #20 tab 02/10/21 loperamide 2 mg tablet 2 mg PO Q4H PRN #10 tab 02/10/21 (Anti-Diarrheal (loperamide)) ondansetron HCl 4 mg tablet 4 mg PO Q6H PRN #14 tab 02/10/21 (Zofran) ondansetron 4 mg disintegrating 4 mg PO Q6-8H PRN #14 tab 02/13/21 tablet pantoprazole 20 mg tablet,delayed 20 mg PO DAILY #30 tab 02/13/21 release (Protonix) cyclobenzaprine 10 mg tablet 10 mg PO TID PRN #18 tab 02/16/21 naproxen 500 mg tablet 500 mg PO BID PRN #20 tab 02/16/21 lidocaine 4 % topical patch 1 patch TOPICAL DAILY PRN #10 ea 02/19/21 cyclobenzaprine 10 mg tablet 10 mg PO TID #10 tab 02/27/21 naproxen 500 mg tablet (Naprosyn) 500 mg PO BID #20 tab 02/27/21 cyclobenzaprine 5 mg tablet 5 mg PO TID PRN #10 tab 03/02/21 ibuprofen 600 mg tablet 600 mg PO Q6H PRN #14 tab 03/02/21 lidocaine 5 % topical patch 1 patch TOPICAL DAILY PRN #15 ea 03/02/21 oxycodone 5 mg tablet 5 mg PO Q6H PRN #5 tab 03/02/21 cyclobenzaprine 10 mg tablet 10 mg PO TID PRN #10 tab 03/28/21 lidocaine 4 % topical patch 1 patch TOPICAL BID PRN #10 ea 03/28/21 (Aspercreme (lidocaine)) doxycycline hyclate 100 mg capsule 100 mg PO BID #20 cap 03/31/21 triamcinolone acetonide 0.025 % 1 appl TOPICAL BID #15 g 04/12/21 topical ointment cyclobenzaprine 10 mg tablet 10 mg PO TID PRN #15 tab 05/04/21 lidocaine HCl 4 % topical patch 1 patch TOPICAL BID PRN #30 ea 05/04/21 naproxen 500 mg tablet 500 mg PO BID PRN #20 tab 05/04/21 sucralfate 100 mg/mL oral 10 ml PO BID #420 ml 05/31/21 suspension (Carafate) cyclobenzaprine 10 mg tablet 10 mg PO TID #9 tab 06/10/21 ketorolac 10 mg tablet 10 mg PO TID PRN 5 Days tab 06/10/21 doxycycline hyclate 100 mg tablet 100 mg PO BID #20 tab 07/08/21 cyclobenzaprine 10 mg tablet 10 mg PO TID PRN #14 tab 07/26/21 ketorolac 10 mg tablet 10 mg PO TID PRN 5 Days #15 tab 07/26/21 cyclobenzaprine 10 mg tablet 10 mg PO TID #10 tab 08/06/21 naproxen 500 mg tablet (Naprosyn) 500 mg PO BID #20 tab 08/06/21 famotidine 20 mg tablet (Pepcid) 20 mg PO DAILY PRN #30 tab 08/12/21 cyclobenzaprine 10 mg tablet 10 mg PO TID PRN #14 tab 08/19/21 famotidine 20 mg tablet (Pepcid) 20 mg PO DAILY PRN #30 tab 08/19/21 naproxen 500 mg tablet (Naprosyn) 500 mg PO BID PRN #20 tab 08/19/21 Allergies Allergy/AdvReac Type Severity Reaction Status Date / Time Penicillins [PCN] Allergy Mild RASH Verified 08/19/21 05:37 silver AdvReac Intermediate rash Verified 08/19/21 05:37 [From TEGADERM AG MESH] Review of Systems Review of Systems Constitutional : No Weight loss, No Fever, No Chills ENT/Mouth : No sore throat, No Rhinorrhea Eyes: No Swelling, No Redness Cardiovascular : No Chest Pain, No SOB, NoEdema Respiratory : No Cough, No Sputum, No Wheezing Gastrointestinal :no Nausea, no Vomiting, no Diarrhea, positive abdominal Pain, No Hematochezia, No Melena Genitourinary : No Dysuria, No Urinary Frequency, No Hematuria, No Urgency Musculoskeletal : No joint pain, No Myalgias, No Joint Swelling Skin : No Skin Lesions, No rash Neuro : No Weakness, No Numbness, No Dizziness, No Headache Psych : No Anxiety/Panic, No Depression Heme/Lymph: No Bruising, No Lymphadenopathy Endocrine : No Polyuria, No Polydipsia All other systems reviewed and are negative. Physical Exam Vital Signs: Vital Signs: Last Vital Signs Temp 98.3 F 08/19/21 05:37 Pulse 67 08/19/21 07:29 Resp 18 08/19/21 07:29 BP 125/87 08/19/21 07:29 Pulse Ox 100 08/19/21 07:29 Body Mass Index 25.5 Appearance: Alert. Oriented X3. No acute distress. Eyes: Pupils equal, round and reactive to light. ENT: Pharynx normal. Neck: Normal inspection. Neck supple. CVS: Normal heart rate and rhythm. Pulses normal. Respiratory: No respiratory distress. Breath sounds normal. Abdomen: Soft and mild epigastric ttp no rebound or guarding Skin: Skin warm and dry. Normal skin color. Normal skin turgor. Extremities: No lower extremity edema. No calf ttp Neuro: Oriented X 3. No motor deficit. No sensory deficit. Course Course Course Narrative: refuses CT scan for possible pancreatitis, eating food walking around appears not toxic MDM - Abdominal Pain MDM Narrative Medical decision making narrative: 36 yo male with chronic back pain, gastritis, hx of substance abue continues to c/o epigastric pain slight bump in lipase will obtain CT scan of abdomen for pancreatitis though his levels are usually high - PO medications, no distress, no signs of guarding or peritoneal issues. Dispo per results and findings. Lab Data Result diagrams: 08/19/21 06:10 08/19/21 06:10 Labs: Lab Results 08/19/21 08/19/21 08/19/21 Range/Units 06:10 06:10 06:15 WBC 6.3 (4.8-10.8) X10*3/uL RBC 4.06 L (4.60-5.80) X10*6/uL Hgb 13.7 L (14.0-18.0) g/dl Hct 40.0 L (42-52) % MCV 98.5 H (80-98) fL MCH 33.7 H (27.0-33.0) pg MCHC 34.3 (31.0-36.0) g/dl RDW 13.1 (11.0-16.0) % Plt Count 187 (160-400) X10*3/uL MPV 9.7 (9.4-12.4) fL Immature Gran % (Auto) 0.3 (0.0-0.4) % Neut % (Auto) 60.2 (45-73) % Lymph % (Auto) 28.2 (20-40) % [place] % (Auto) 6.9 (2-11) % Eos % (Auto) 3.9 (0-4) % Baso % (Auto) 0.5 (0-2) % Lymph # (Auto) 1.8 (1.2-4.9) X10*3/uL [place] # (Auto) 0.4 (0.1-1.2) X10*3/uL Eos # (Auto) 0.3 (0.0-0.4) X10*3/uL Baso # (Auto) 0.0 (0.0-0.2) X10*3/uL Abs Immat Gran (auto) 0.02 (0.00-0.03) X10*3/uL Absolute Neuts (auto) 3.8 (2.0-8.3) X10*3/uL Absolute Nucleated RBC 0.000 (0.0-0.012) X10*3/uL Nucleated RBC % (auto) 0.0 (0.0-0.2) /100WBC Sodium 141 (135-145) mmol/L Potassium 4.1 (3.3-5.1) mmol/L Chloride 104 (96-108) mmol/L Carbon Dioxide 28 (22-29) mmol/L Anion Gap 13 (12-20) BUN 10 (9-16) mg/dL Creatinine 0.98 (0.5-1.4) mg/dL Estim Creat Clear Calc 97.4 Estimated GFR > 60 Random Glucose 87 (60-115) mg/dL Calcium 9.2 (8.4-10.2) mg/dL Total Bilirubin 0.7 (0.0-1.0) mg/dL AST 28 (5-37) U/L ALT 30 (0-40) U/L Alkaline Phosphatase 61 (39-117) U/L Total Protein 6.9 (6.5-8.0) g/dL Albumin 4.3 (3.5-5.0) g/dL Lipase 277 H (8-78) U/L Urine Color YELLOW Urine Appearance CLEAR Urine pH 6.5 (5.0-8.0) Ur Specific [place] 1.025 (1.005-1.025) Urine Protein NEG (NEG-TRACE) MG/DL Urine Glucose (UA) NEG (NEG) MG/DL Urine Ketones NEG (NEG) MG/DL Urine Blood NEG (NEG) Urine Nitrite NEG (NEG) Ur Leukocyte Esterase NEG (NEG) Discharge Plan Discharge Clinical Impression: Chronic back pain Qualifiers: Back pain location: low back pain Back pain laterality: bilateral Sciatica presence: without sciatica Qualified Code(s): M54.50 - Low back pain, unspecified Gastritis Qualifiers: Gastritis type: unspecified gastritis Chronicity: acute Gastritis bleeding: without bleeding Qualified Code(s): K29.00 - Acute gastritis without bleeding Patient Disposition: Home, Self-Care Instructions: Gastritis (ED), Chronic Back Pain (DC) Additional Instructions: return to ED for any worsening symptoms or concerns you refused CT scan to evaluate your pancreas Prescriptions: New cyclobenzaprine 10 mg tablet 10 mg PO TID PRN (Reason: muscle spasm) Qty: 14 RF: 0 famotidine [Pepcid] 20 mg tablet 20 mg PO DAILY PRN (Reason: abdominal discomfort) Qty: 30 RF: 0 naproxen [Naprosyn] 500 mg tablet 500 mg PO BID PRN (Reason: pain) Qty: 20 RF: 0 No Action ketorolac 10 mg tablet 10 mg PO Q6H PRN (Reason: pain) 5 Days Qty: 20 RF: 0 naproxen 500 mg tablet 500 mg PO BID PRN (Reason: pain) Qty: 14 RF: 0 cyclobenzaprine 5 mg tablet 5 mg PO TID PRN (Reason: muscle spasm) Qty: 10 RF: 0 (DME) cane Device See Rx Instructions .ROUTE .MEDSUPPLY Qty: 1 RF: 0 cyclobenzaprine 10 mg tablet 10 mg PO BEDTIME PRN (Reason: muscle spasm) Qty: 3 RF: 0 doxycycline monohydrate 100 mg capsule 100 mg PO BID 7 Days Qty: 14 RF: 0 cephalexin [Keflex] 500 mg capsule 500 mg PO QID 7 Days Qty: 28 RF: 0 lidocaine [Lidoderm] 5 % adhesive patch,medicated 1 patch topical DAILY Qty: 15 RF: 0 ibuprofen 600 mg tablet 600 mg PO Q8H PRN (Reason: pain) Qty: 15 RF: 0 cyclobenzaprine 10 mg tablet 10 mg PO TID PRN (Reason: muscle spasm) Qty: 8 RF: 0 lidocaine [Lidoderm] 5 % adhesive patch,medicated 1 patch topical DAILY PRN (Reason: pain) Qty: 1 RF: 0 ibuprofen 400 mg tablet 400 mg PO Q6H PRN (Reason: pain) Qty: 20 RF: 0 omeprazole 40 mg capsule,delayed release(DR/EC) 40 mg PO DAILY Qty: 20 RF: 0 sucralfate [Carafate] 1 gram tablet 1 g PO BID Qty: 30 RF: 0 mupirocin 2 % ointment 1 appl topical BID Qty: 15 RF: 0 omeprazole 20 mg capsule,delayed release(DR/EC) 20 mg PO DAILY Qty: 30 RF: 0 PNV no.170-iron fum-folic acid 27 mg iron- 1 mg tablet 1 tab PO DAILY Qty: 30 RF: 0 cyclobenzaprine 10 mg tablet 10 mg PO TID PRN (Reason: muscle pain or spasm) Qty: 20 RF: 0 lidocaine 5 % adhesive patch,medicated 1 patch topical Q24H Qty: 15 RF: 0 ondansetron 4 mg tablet,disintegrating 4 mg PO Q8H PRN (Reason: nausea and vomiting) Qty: 20 RF: 0 Narcan 4 mg/actuation spray,non-aerosol 4 mg intranasal Q3M PRN (Reason: opioid overdose) Qty: 2 RF: 0 ketorolac 10 mg tablet 10 mg PO Q6H PRN (Reason: pain) 5 Days Qty: 20 RF: 0 ondansetron HCl [Zofran] 4 mg tablet 4 mg PO Q6H PRN (Reason: nausea and vomiting) Qty: 14 RF: 0 loperamide [Anti-Diarrheal (loperamide)] 2 mg tablet 2 mg PO Q4H PRN (Reason: loose stool) Qty: 10 RF: 0 ibuprofen 600 mg tablet 600 mg PO Q6H PRN (Reason: fever or pain) Qty: 20 RF: 0 lidocaine 5 % adhesive patch,medicated 1 patch topical DAILY PRN (Reason: back pain) Qty: 15 RF: 0 oxycodone 5 mg tablet 5 mg PO Q6H PRN (Reason: pain) Qty: 5 RF: 0 ibuprofen 600 mg tablet 600 mg PO Q6H PRN (Reason: pain) Qty: 14 RF: 0 cyclobenzaprine 5 mg tablet 5 mg PO TID PRN (Reason: muscle spasm) Qty: 10 RF: 0 cyclobenzaprine 10 mg tablet 10 mg PO TID PRN (Reason: muscle spasm) Qty: 10 RF: 0 lidocaine [Aspercreme (lidocaine HCl)] 4 % adhesive patch,medicated 1 patch topical BID PRN (Reason: pain) Qty: 10 RF: 0 naproxen 500 mg tablet 500 mg PO BID PRN (Reason: pain) Qty: 20 RF: 0 cyclobenzaprine 10 mg tablet 10 mg PO TID PRN (Reason: pain) Qty: 15 RF: 0 lidocaine HCl 4 % adhesive patch,medicated 1 patch topical BID PRN (Reason: pain) Qty: 30 RF: 0 doxycycline hyclate 100 mg tablet 100 mg PO BID Qty: 20 RF: 0 Atarax 100 mg Tablet 100 mg PO NEEDED PRN (Reason: Anxiety) RF: 0 hydrocortisone [Anusol-HC] 2.5 % cream with perineal applicator 1 applic IL BEDTIME PRN (Reason: pain) Qty: 30 RF: 0 polyethylene glycol 3350 [Miralax] 17 gram/dose powder 17 g PO DAILY Qty: 119 RF: 0 cyclobenzaprine 10 mg tablet 10 mg PO TID PRN (Reason: muscle spasm) Qty: 30 RF: 0 tramadol 50 mg tablet 50 mg PO Q8H PRN (Reason: pain) Qty: 12 RF: 0 cyclobenzaprine 5 mg tablet 5 mg PO TID PRN (Reason: muscle spasm) Qty: 5 RF: 0 cyclobenzaprine 10 mg tablet 10 mg PO TID PRN (Reason: muscle spasm) Qty: 20 RF: 0 ketorolac 10 mg tablet 10 mg PO QID 5 Days Qty: 20 RF: 0 methocarbamol [Robaxin-750] 750 mg tablet 750 mg PO Q8H PRN (Reason: pain, severe) Qty: 10 RF: 0 acetaminophen [Tylenol Extra Strength] 500 mg tablet 500 mg PO Q6H PRN (Reason: pain or fever) Qty: 20 RF: 0 lidocaine [Lidoderm] 5 % adhesive patch,medicated 1 patch topical DAILY MDD remove after 12 hours PRN (Reason: pain) Qty: 30 R F: 0 naproxen 500 mg tablet 500 mg PO BID PRN (Reason: pain) 10 Days Qty: 20 RF: 0 cyclobenzaprine 10 mg tablet 10 mg PO TID PRN (Reason: muscle spasm) Qty: 14 RF: 0 lidocaine 4 % adhesive patch,medicated 1 patch topical DAILY PRN (Reason: pain) Qty: 10 RF: 0 ibuprofen 600 mg tablet 600 mg PO Q6H PRN (Reason: pain) Qty: 30 RF: 0 ketorolac 10 mg tablet 10 mg PO Q8H PRN (Reason: pain) Qty: 10 RF: 0 cyclobenzaprine 10 mg tablet 10 mg PO TID PRN (Reason: muscle spasm) Qty: 10 RF: 0 pantoprazole [Protonix] 20 mg tablet,delayed release (DR/EC) 20 mg PO DAILY Qty: 30 RF: 0 ondansetron 4 mg tablet,disintegrating 4 mg PO Q6-8H PRN (Reason: nausea and vomiting) Qty: 14 RF: 0 cyclobenzaprine 10 mg tablet 10 mg PO TID PRN (Reason: pain) Qty: 18 RF: 0 naproxen 500 mg tablet 500 mg PO BID PRN (Reason: pain) Qty: 20 RF: 0 lidocaine 4 % adhesive patch,medicated 1 patch topical DAILY PRN (Reason: pain) Qty: 10 RF: 0 cyclobenzaprine 10 mg tablet 10 mg PO TID Qty: 10 RF: 0 naproxen [Naprosyn] 500 mg tablet 500 mg PO BID Qty: 20 RF: 0 doxycycline hyclate 100 mg capsule 100 mg PO BID Qty: 20 RF: 0 triamcinolone acetonide 0.025 % ointment 1 appl topical BID Qty: 15 RF: 0 sucralfate [Carafate] 100 mg/mL suspension 10 ml PO BID Qty: 420 RF: 0 cyclobenzaprine 10 mg tablet 10 mg PO TID Qty: 9 RF: 0 ketorolac 10 mg tablet 10 mg PO TID PRN (Reason: pain) 5 Days RF: 0 cyclobenzaprine 10 mg tablet 10 mg PO TID PRN (Reason: pain) Qty: 14 RF: 0 ketorolac 10 mg tablet 10 mg PO TID PRN (Reason: pain) 5 Days Qty: 15 RF: 0 cyclobenzaprine 10 mg tablet 10 mg PO TID Qty: 10 RF: 0 naproxen [Naprosyn] 500 mg tablet 500 mg PO BID Qty: 20 RF: 0 famotidine [Pepcid] 20 mg tablet 20 mg PO DAILY PRN (Reason: abdominal discomfort) Qty: 30 RF: 0 Referrals: Physician,Unknown J [Primary Care Provider] - 2 days (if not better) FORMERLY [facility], 1928–1983 Past Medical History Attestation statement: The following information was validated with the patient. Medical History Anxiety Bipolar 1 disorder Contusion Depression Foot drop, right foot Heart murmur Schizophrenia Surgical History No pertinent past surgical history Social History Social History Alcohol intake: current Alcohol intake frequency: does not drink Alcohol type: beer and hard liquor Patient Tobacco Use Status: Current everyday Tobacco user Use of substances other than those prescribed or required for medical reasons: Yes Substance Use Type: Marijuana Substance Use Frequency: Daily Advance Directives: No Advance Directives Information Provided: Yes
[2021-08-19 06:42] LABS: Appearance Urine CLEAR; Color Urine YELLOW; Glucose Urine UA NEG (NEG); Leukocyte Esterase Urine NEG (NEG); Nitrite Urine NEG (NEG); PH 6.5 (5.0-8.0); Specific Gravity - Urine 1.025 (1.005-1.025); Urine Blood NEG (NEG); Urine Ketones NEG (NEG); Urine Protein NEG (NEG-TRACE)
[2021-08-19 06:56] LABS: Lipase 277 U/L (8-78)
[2021-08-19] MEDS: Cyclobenzaprine HCl 10 MG TABLET PO (07:25)
[2021-08-19] MEDS: Lidocaine HCl Viscous 2 % 15 ML SOLUTION MUCOUS MEM (07:26)
[2021-08-19] MEDS: Famotidine 20 MG TABLET PO (07:26)
[2021-08-19] MEDS: Magnesium Hydrox/Alum Hydrox 30 ML ORAL.SUSP PO (07:26)
[2021-08-19 07:29] VITALS: BP 125/87; PULSE 67; RESP 18; O2SAT 100
== END 2021-08-19 08:02 | disposition home or self-care (01) ==
PROVIDERS: Emergency Provider Emergency Medicine
DX: K29.00 Acute gastritis without bleeding (principal); M54.50 Low back pain, unspecified
CPT/HCPCS: 36415; 80053; 81003; 83690; 85025; 99284

== ENCOUNTER 2021-08-24 11:31 | Emergency (ER) | payer OTHER, SELFPAY ==
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
[2021-08-24 11:42] VITALS: BP 139/79; PULSE 100; RESP 18; TEMP 36.6; O2SAT 95; BMI 27.4
[2021-08-24] MEDS: Acetaminophen 325 MG TABLET 650 MG PO (12:28)
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
== END 2021-08-24 13:53 | disposition home or self-care (01) ==
PROVIDERS: Emergency Provider Emergency Medicine
DX: M79.10 Myalgia, unspecified site (principal); M54.2 Cervicalgia; M79.652 Pain in left thigh; R07.81 Pleurodynia; R51.9 Headache, unspecified; Z79.899 Other long term (current) drug therapy
CPT/HCPCS: 70450; 71101; 72125; 73552; 99284

== ENCOUNTER 2021-09-05 05:45 | Emergency (ER) | payer OTHER, SELFPAY ==
--- NOTE | 2021-09-05 06:04 | ED.GENADULT ---
HPI - General Adult General Stated complaint: lower back pain Time Seen by Provider: 09/05/21 05:50 Source: patient Mode of arrival: ambulatory Limitations: no limitations History of Present Illness HPI narrative: Patient comes to emergency room complaining of lower back pain. Patient states that he has had this chronic pain for several years, 3 years ago he had physical therapy, discharge. Patient states that he is trying to get an appointment with his primary care physician to be referred to therapy again. Patient states that what works well for him and is Flexeril. Patient denies fever, no chills, no new symptoms. Denies urinary/fecal retention/incontinence, denies any trauma. Patient is ambulatory within normal limits. Related Data Home Medications Medication Instructions Recorded Confirmed hydroxyzine HCl 100 mg tablet 100 mg PO NEEDED PRN 08/03/20 08/03/20 Previous Rx's Medication Instructions Recorded hydrocortisone 2.5 % topical cream 1 applic ND BEDTIME PRN #30 g 08/13/20 with perineal applicator (Anusol-HC) polyethylene glycol 3350 17 17 g PO DAILY #119 g 08/13/20 gram/dose oral powder (Miralax) cyclobenzaprine 10 mg tablet 10 mg PO TID PRN #30 tab 08/15/20 tramadol 50 mg tablet 50 mg PO Q8H PRN #12 tab 08/15/20 ketorolac 10 mg tablet 10 mg PO Q6H PRN 5 Days #20 tab 08/17/20 cane #1 ea 09/01/20 cyclobenzaprine 5 mg tablet 5 mg PO TID PRN #10 tab 09/01/20 naproxen 500 mg tablet 500 mg PO BID PRN #14 tab 09/01/20 cyclobenzaprine 5 mg tablet 5 mg PO TID PRN #5 tab 09/08/20 cyclobenzaprine 10 mg tablet 10 mg PO BEDTIME PRN #3 tab 09/17/20 cyclobenzaprine 10 mg tablet 10 mg PO TID PRN #20 tab 09/22/20 ketorolac 10 mg tablet 10 mg PO QID 5 Days #20 tab 09/22/20 cephalexin 500 mg capsule (Keflex) 500 mg PO QID 7 Days #28 cap 09/26/20 doxycycline monohydrate 100 mg 100 mg PO BID 7 Days #14 cap 09/26/20 capsule cyclobenzaprine 10 mg tablet 10 mg PO TID PRN #8 tab 09/29/20 ibuprofen 600 mg tablet 600 mg PO Q8H PRN #15 tab 09/29/20 lidocaine 5 % topical patch 1 patch TOPICAL DAILY #15 ea 09/29/20 (Lidoderm) acetaminophen 500 mg tablet 500 mg PO Q6H PRN #20 tab 10/04/20 (Tylenol Extra Strength) lidocaine 5 % topical patch 1 patch TOPICAL DAILY PRN #30 ea 10/04/20 (Lidoderm) MDD remove after 12 hours methocarbamol 750 mg tablet 750 mg PO Q8H PRN #10 tab 10/04/20 (Robaxin-750) naproxen 500 mg tablet 500 mg PO BID PRN 10 Days #20 tab 10/04/20 ibuprofen 400 mg tablet 400 mg PO Q6H PRN #20 tab 10/30/20 lidocaine 5 % topical patch 1 patch TOPICAL DAILY PRN #1 ea 10/30/20 (Lidoderm) omeprazole 40 mg capsule,delayed 40 mg PO DAILY #20 cap 11/04/20 release sucralfate 1 gram tablet (Carafate) 1 g PO BID #30 tab 11/04/20 mupirocin 2 % topical ointment 1 appl TOPICAL BID #15 g 12/04/20 cyclobenzaprine 10 mg tablet 10 mg PO TID PRN #14 tab 12/07/20 ibuprofen 600 mg tablet 600 mg PO Q6H PRN #30 tab 12/07/20 lidocaine 4 % topical patch 1 patch TOPICAL DAILY PRN #10 ea 12/07/20 omeprazole 20 mg capsule,delayed 20 mg PO DAILY #30 cap 12/15/20 release vitamins no.170-iron 1 tab PO DAILY #30 tab 12/15/20 fumarate 27 mg-folic acid 1 mg tablet cyclobenzaprine 10 mg tablet 10 mg PO TID PRN #20 tab 12/27/20 lidocaine 5 % topical patch 1 patch TOPICAL Q24H #15 ea 12/27/20 ondansetron 4 mg disintegrating 4 mg PO Q8H PRN #20 tab 01/02/21 tablet naloxone 4 mg/actuation nasal 4 mg INTRANASAL Q3M PRN #2 ea 01/08/21 spray (Narcan) cyclobenzaprine 10 mg tablet 10 mg PO TID PRN #10 tab 01/16/21 ketorolac 10 mg tablet 10 mg PO Q8H PRN #10 tab 01/16/21 ketorolac 10 mg tablet 10 mg PO Q6H PRN 5 Days #20 tab 01/27/21 ibuprofen 600 mg tablet 600 mg PO Q6H PRN #20 tab 02/10/21 loperamide 2 mg tablet 2 mg PO Q4H PRN #10 tab 02/10/21 (Anti-Diarrheal (loperamide)) ondansetron HCl 4 mg tablet 4 mg PO Q6H PRN #14 tab 02/10/21 (Zofran) ondansetron 4 mg disintegrating 4 mg PO Q6-8H PRN #14 tab 02/13/21 tablet pantoprazole 20 mg tablet,delayed 20 mg PO DAILY #30 tab 02/13/21 release (Protonix) cyclobenzaprine 10 mg tablet 10 mg PO TID PRN #18 tab 02/16/21 naproxen 500 mg tablet 500 mg PO BID PRN #20 tab 02/16/21 lidocaine 4 % topical patch 1 patch TOPICAL DAILY PRN #10 ea 02/19/21 cyclobenzaprine 10 mg tablet 10 mg PO TID #10 tab 02/27/21 naproxen 500 mg tablet (Naprosyn) 500 mg PO BID #20 tab 02/27/21 cyclobenzaprine 5 mg tablet 5 mg PO TID PRN #10 tab 03/02/21 ibuprofen 600 mg tablet 600 mg PO Q6H PRN #14 tab 03/02/21 lidocaine 5 % topical patch 1 patch TOPICAL DAILY PRN #15 ea 03/02/21 oxycodone 5 mg tablet 5 mg PO Q6H PRN #5 tab 03/02/21 cyclobenzaprine 10 mg tablet 10 mg PO TID PRN #10 tab 03/28/21 lidocaine 4 % topical patch 1 patch TOPICAL BID PRN #10 ea 03/28/21 (Aspercreme (lidocaine)) doxycycline hyclate 100 mg capsule 100 mg PO BID #20 cap 03/31/21 triamcinolone acetonide 0.025 % 1 appl TOPICAL BID #15 g 04/12/21 topical ointment cyclobenzaprine 10 mg tablet 10 mg PO TID PRN #15 tab 05/04/21 lidocaine HCl 4 % topical patch 1 patch TOPICAL BID PRN #30 ea 05/04/21 naproxen 500 mg tablet 500 mg PO BID PRN #20 tab 05/04/21 sucralfate 100 mg/mL oral 10 ml PO BID #420 ml 05/31/21 suspension (Carafate) cyclobenzaprine 10 mg tablet 10 mg PO TID #9 tab 06/10/21 ketorolac 10 mg tablet 10 mg PO TID PRN 5 Days tab 06/10/21 doxycycline hyclate 100 mg tablet 100 mg PO BID #20 tab 07/08/21 cyclobenzaprine 10 mg tablet 10 mg PO TID PRN #14 tab 07/26/21 ketorolac 10 mg tablet 10 mg PO TID PRN 5 Days #15 tab 07/26/21 cyclobenzaprine 10 mg tablet 10 mg PO TID #10 tab 08/06/21 naproxen 500 mg tablet (Naprosyn) 500 mg PO BID #20 tab 08/06/21 famotidine 20 mg tablet (Pepcid) 20 mg PO DAILY PRN #30 tab 08/12/21 cyclobenzaprine 10 mg tablet 10 mg PO TID PRN #14 tab 08/19/21 famotidine 20 mg tablet (Pepcid) 20 mg PO DAILY PRN #30 tab 08/19/21 naproxen 500 mg tablet (Naprosyn) 500 mg PO BID PRN #20 tab 08/19/21 cyclobenzaprine 10 mg tablet 10 mg PO TID PRN #10 tab 09/05/21 Allergies Allergy/AdvReac Type Severity Reaction Status Date / Time Penicillins [PCN] Allergy Mild RASH Verified 08/19/21 05:37 silver AdvReac Intermediate rash Verified 08/19/21 05:37 [From TEGADERM AG MESH] Review of Systems Review of Systems: Constitutional : No Weight loss, No Fever, No Chills, No Night Sweats, No Fatigue, No Malaise ENT/Mouth : No Hearing loss, No Ear Pain, No Nasal Congestion, No Sinus Pain, No Hoarseness, No sore throat, No Rhinorrhea, No Swallowing Difficulty Eyes: No Eye Pain, No Swelling, No Redness, No Foreign Body, No Discharge, No Vision Changes Cardiovascular : No Chest Pain, No SOB, No Dyspnea on Exertion, No Orthopnea, No Edema, No Palpitations Respiratory : No Cough, No Sputum, No Wheezing, No Smoke Exposure, No Dyspnea Gastrointestinal : No Nausea, No Vomiting, No Diarrhea, No Constipation, No abdominal Pain, No Hematochezia, No Melena Genitourinary : no irregular bleeding, No Dysuria, No Urinary Frequency, No Hematuria, No Urinary Incontinence, No Urgency, No Flank Pain, No Urinary Flow Changes, No Hesitancy Musculoskeletal : Mild pain to palpation in the bilateral aspects of the lumbar/lower thoracic spine, No Myalgias, No Joint Swelling Skin : No Skin Lesions, No rash Neuro : No Weakness, No Numbness, No Paresthesias, No Loss of Consciousness, No Dizziness, No Headache Psych : No Anxiety/Panic, No Depression, No SI/HI/AH/VH, No Social Issues, Heme/Lymph: No Bruising, No Bleeding,No Lymphadenopathy Endocrine : No Polyuria, No Polydipsia, No Temperature Intolerance [facility] Past Medical History Medical History Anxiety Bipolar 1 disorder Contusion Depression Foot drop, right foot Heart murmur Schizophrenia Surgical History No pertinent past surgical history Social History Social History Alcohol intake: current Alcohol intake frequency: does not drink Alcohol type: beer and hard liquor Patient Tobacco Use Status: Current everyday Tobacco user Substance Use Type: Marijuana Advance Directives: No Advance Directives Information Provided: Yes Physical Exam Const: Other: Appearance: Alert. Oriented X3. No acute distress. Eyes: Pupils equal, round and reactive to light. ENT: Pharynx normal. Neck: Normal inspection. Neck supple. No lymph nodes noted. No crepitus CVS: Normal heart rate and rhythm. Pulses normal. Normal S1 and S2 Respiratory: No respiratory distress. Breath sounds normal. No Wheezing. No rales Abdomen: Soft and nontender. No rigidity. No distention. Back: Mild pain to palpation over the bilateral aspects of the lower thoracic and lumbar spine. No significant tenderness over the spine Skin: Skin warm and dry. Normal skin color. Normal skin turgor. Extremities: No lower extremity edema. No lower extremity edema. No Lacerations. No Rash Neuro: Oriented X 3. No motor deficit. No sensory deficit. Moving all extermities. No slurred speech. Course Course Course Narrative: Patient likely having musculoskeletal pain, chronic. Patient is trying to get an appointment with his PCP to be referred to physical therapy. Patient does not have any fever, no significant tenderness in the spine, spinal abscess not suspected at this time. Patient is ambulatory at baseline, normal steady gait. Discharge Plan Discharge Clinical Impression: Chronic back pain Qualifiers: Back pain location: low back pain Back pain laterality: bilateral Sciatica presence: unspecified whether sciatica present Qualified Code(s): M54.50 - Low back pain, unspecified Patient Disposition: Home, Self-Care Instructions: Chronic Back Pain (DC), Lower Back Exercises (ED) Additional Instructions: Please follow-up with your primary care physician tomorrow. If you have any worsening or new symptoms, please return to the emergency room or call 911 Prescriptions: New cyclobenzaprine 10 mg tablet 10 mg PO TID PRN (Reason: muscle spasm) Qty: 10 RF: 0 No Action ketorolac 10 mg tablet 10 mg PO Q6H PRN (Reason: pain) 5 Days Qty: 20 RF: 0 naproxen 500 mg tablet 500 mg PO BID PRN (Reason: pain) Qty: 14 RF: 0 cyclobenzaprine 5 mg tablet 5 mg PO TID PRN (Reason: muscle spasm) Qty: 10 RF: 0 (DME) cane Device See Rx Instructions .ROUTE .MEDSUPPLY Qty: 1 RF: 0 cyclobenzaprine 10 mg tablet 10 mg PO BEDTIME PRN (Reason: muscle spasm) Qty: 3 RF: 0 doxycycline monohydrate 100 mg capsule 100 mg PO BID 7 Days Qty: 14 RF: 0 cephalexin [Keflex] 500 mg capsule 500 mg PO QID 7 Days Qty: 28 RF: 0 lidocaine [Lidoderm] 5 % adhesive patch,medicated 1 patch topical DAILY Qty: 15 RF: 0 ibuprofen 600 mg tablet 600 mg PO Q8H PRN (Reason: pain) Qty: 15 RF: 0 cyclobenzaprine 10 mg tablet 10 mg PO TID PRN (Reason: muscle spasm) Qty: 8 RF: 0 lidocaine [Lidoderm] 5 % adhesive patch,medicated 1 patch topical DAILY PRN (Reason: pain) Qty: 1 RF: 0 ibuprofen 400 mg tablet 400 mg PO Q6H PRN (Reason: pain) Qty: 20 RF: 0 omeprazole 40 mg capsule,delayed release(DR/EC) 40 mg PO DAILY Qty: 20 RF: 0 sucralfate [Carafate] 1 gram tablet 1 g PO BID Qty: 30 RF: 0 mupirocin 2 % ointment 1 appl topical BID Qty: 15 RF: 0 omeprazole 20 mg capsule,delayed release(DR/EC) 20 mg PO DAILY Qty: 30 RF: 0 PNV no.170-iron fum-folic acid 27 mg iron- 1 mg tablet 1 tab PO DAILY Qty: 30 RF: 0 cyclobenzaprine 10 mg tablet 10 mg PO TID PRN (Reason: muscle pain or spasm) Qty: 20 RF: 0 lidocaine 5 % adhesive patch,medicated 1 patch topical Q24H Qty: 15 RF: 0 ondansetron 4 mg tablet,disintegrating 4 mg PO Q8H PRN (Reason: nausea and vomiting) Qty: 20 RF: 0 Narcan 4 mg/actuation spray,non-aerosol 4 mg intranasal Q3M PRN (Reason: opioid overdose) Qty: 2 RF: 0 ketorolac 10 mg tablet 10 mg PO Q6H PRN (Reason: pain) 5 Days Qty: 20 RF: 0 ondansetron HCl [Zofran] 4 mg tablet 4 mg PO Q6H PRN (Reason: nausea and vomiting) Qty: 14 RF: 0 loperamide [Anti-Diarrheal (loperamide)] 2 mg tablet 2 mg PO Q4H PRN (Reason: loose stool) Qty: 10 RF: 0 ibuprofen 600 mg tablet 600 mg PO Q6H PRN (Reason: fever or pain) Qty: 20 RF: 0 lidocaine 5 % adhesive patch,medicated 1 patch topical DAILY PRN (Reason: back pain) Qty: 15 RF: 0 oxycodone 5 mg tablet 5 mg PO Q6H PRN (Reason: pain) Qty: 5 RF: 0 ibuprofen 600 mg tablet 600 mg PO Q6H PRN (Reason: pain) Qty: 14 RF: 0 cyclobenzaprine 5 mg tablet 5 mg PO TID PRN (Reason: muscle spasm) Qty: 10 RF: 0 cyclobenzaprine 10 mg tablet 10 mg PO TID PRN (Reason: muscle spasm) Qty: 10 RF: 0 lidocaine [Aspercreme (lidocaine HCl)] 4 % adhesive patch,medicated 1 patch topical BID PRN (Reason: pain) Qty: 10 RF: 0 naproxen 500 mg tablet 500 mg PO BID PRN (Reason: pain) Qty: 20 RF: 0 cyclobenzaprine 10 mg tablet 10 mg PO TID PRN (Reason: pain) Qty: 15 RF: 0 lidocaine HCl 4 % adhesive patch,medicated 1 patch topical BID PRN (Reason: pain) Qty: 30 RF: 0 doxycycline hyclate 100 mg tablet 100 mg PO BID Qty: 20 RF: 0 Atarax 100 mg Tablet 100 mg PO NEEDED PRN (Reason: Anxiety) RF: 0 hydrocortisone [Anusol-HC] 2.5 % cream with perineal applicator 1 applic ND BEDTIME PRN (Reason: pain) Qty: 30 RF: 0 polyethylene glycol 3350 [Miralax] 17 gram/dose powder 17 g PO DAILY Qty: 119 RF: 0 cyclobenzaprine 10 mg tablet 10 mg PO TID PRN (Reason: muscle spasm) Qty: 30 RF: 0 tramadol 50 mg tablet 50 mg PO Q8H PRN (Reason: pain) Qty: 12 RF: 0 cyclobenzaprine 5 mg tablet 5 mg PO TID PRN (Reason: muscle spasm) Qty: 5 RF: 0 cyclobenzaprine 10 mg tablet 10 mg PO TID PRN (Reason: muscle spasm) Qty: 20 RF: 0 ketorolac 10 mg tablet 10 mg PO QID 5 Days Qty: 20 RF: 0 methocarbamol [Robaxin-750] 750 mg tablet 750 mg PO Q8H PRN (Reason: pain, severe) Qty: 10 RF: 0 acetaminophen [Tylenol Extra Strength] 500 mg tablet 500 mg PO Q6H PRN (Reason: pain or fever) Qty: 20 RF: 0 lidocaine [Lidoderm] 5 % adhesive patch,medicated 1 patch topical DAILY MDD remove after 12 hours PRN (Reason: pain) Qty: 30 RF: 0 naproxen 500 mg tablet 500 mg PO BID PRN (Reason: pain) 10 Days Qty: 20 RF: 0 cyclobenzaprine 10 mg tablet 10 mg PO TID PRN (Reason: muscle spasm) Qty: 14 RF: 0 lidocaine 4 % adhesive patch,medicated 1 patch topical DAILY PRN (Reason: pain) Qty: 10 RF: 0 ibuprofen 600 mg tablet 600 mg PO Q6H PRN (Reason: pain) Qty: 30 RF: 0 ketorolac 10 mg tablet 10 mg PO Q8H PRN (Reason: pain) Qty: 10 RF: 0 cyclobenzaprine 10 mg tablet 10 mg PO TID PRN (Reason: muscle spasm) Qty: 10 RF: 0 pantoprazole [Protonix] 20 mg tablet,delayed release (DR/EC) 20 mg PO DAILY Qty: 30 RF: 0 ondansetron 4 mg tablet,disintegrating 4 mg PO Q6-8H PRN (Reason: nausea and vomiting) Qty: 14 RF: 0 cyclobenzaprine 10 mg tablet 10 mg PO TID PRN (Reason: pain) Qty: 18 RF: 0 naproxen 500 mg tablet 500 mg PO BID PRN (Reason: pain) Qty: 20 RF: 0 lidocaine 4 % adhesive patch,medicated 1 patch topical DAILY PRN (Reason: pain) Qty: 10 RF: 0 cyclobenzaprine 10 mg tablet 10 mg PO TID Qty: 10 RF: 0 naproxen [Naprosyn] 500 mg tablet 500 mg PO BID Qty: 20 RF: 0 doxycycline hyclate 100 mg capsule 100 mg PO BID Qty: 20 RF: 0 triamcinolone acetonide 0.025 % ointment 1 appl topical BID Qty: 15 RF: 0 sucralfate [Carafate] 100 mg/mL suspension 10 ml PO BID Qty: 420 RF: 0 cyclobenzaprine 10 mg tablet 10 mg PO TID Qty: 9 RF: 0 ketorolac 10 mg tablet 10 mg PO TID PRN (Reason: pain) 5 Days RF: 0 cyclobenzaprine 10 mg tablet 10 mg PO TID PRN (Reason: pain) Qty: 14 RF: 0 ketorolac 10 mg tablet 10 mg PO TID PRN (Reason: pain) 5 Days Qty: 15 RF: 0 cyclobenzaprine 10 mg tablet 10 mg PO TID PRN (Reason: muscle spasm) Qty: 14 RF: 0 famotidine [Pepcid] 20 mg tablet 20 mg PO DAILY PRN (Reason: abdominal discomfort) Qty: 30 RF: 0 naproxen [Naprosyn] 500 mg tablet 500 mg PO BID PRN (Reason: pain) Qty: 20 RF: 0 cyclobenzaprine 10 mg tablet 10 mg PO TID Qty: 10 RF: 0 naproxen [Naprosyn] 500 mg tablet 500 mg PO BID Qty: 20 RF: 0 famotidine [Pepcid] 20 mg tablet 20 mg PO DAILY PRN (Reason: abdominal discomfort) Qty: 30 RF: 0
[2021-09-05 06:19] VITALS: BP 132/72; PULSE 86; RESP 18; TEMP 37; O2SAT 97; BMI 25.8
== END 2021-09-05 06:23 | disposition home or self-care (01) ==
PROVIDERS: Emergency Provider Emergency Medicine
DX: G89.29 Other chronic pain (principal); M54.50 Low back pain, unspecified; I10 Essential (primary) hypertension
CPT/HCPCS: 99283; 99284

== ENCOUNTER 2021-09-09 02:39 | Emergency (ER) | payer OTHER, SELFPAY ==
[2021-09-09 02:48] VITALS: BP 129/73; PULSE 78; RESP 18; TEMP 36; O2SAT 98; BMI 28.1
--- NOTE | 2021-09-09 02:51 | ED.EXTPRO ---
HPI - Extremity Problem General Chief complaint: Extremity Injury, Lower Stated complaint: R Leg pain Time Seen by Provider: 09/09/21 02:50 Source: patient Mode of arrival: ambulatory Limitations: no limitations History of Present Illness MD Complaint: extremity pain Onset (ago): year(s) Pain Consistency: constant Location: right and knee Quality: aching Radiation: none Relieving factors: nothing Exacerbating factors: weight bearing and walking Associated symptoms: denies other symptoms Context: other (chronic knee pain) Related Data Home Medications Medication Instructions Recorded Confirmed hydroxyzine HCl 100 mg tablet 100 mg PO NEEDED PRN 08/03/20 08/03/20 Previous Rx's Medication Instructions Recorded hydrocortisone 2.5 % topical cream 1 applic [place] BEDTIME PRN #30 g 08/13/20 with perineal applicator (Anusol-HC) polyethylene glycol 3350 17 17 g PO DAILY #119 g 08/13/20 gram/dose oral powder (Miralax) cyclobenzaprine 10 mg tablet 10 mg PO TID PRN #30 tab 08/15/20 tramadol 50 mg tablet 50 mg PO Q8H PRN #12 tab 08/15/20 ketorolac 10 mg tablet 10 mg PO Q6H PRN 5 Days #20 tab 08/17/20 cane #1 ea 09/01/20 cyclobenzaprine 5 mg tablet 5 mg PO TID PRN #10 tab 09/01/20 naproxen 500 mg tablet 500 mg PO BID PRN #14 tab 09/01/20 cyclobenzaprine 5 mg tablet 5 mg PO TID PRN #5 tab 09/08/20 cyclobenzaprine 10 mg tablet 10 mg PO BEDTIME PRN #3 tab 09/17/20 cyclobenzaprine 10 mg tablet 10 mg PO TID PRN #20 tab 09/22/20 ketorolac 10 mg tablet 10 mg PO QID 5 Days #20 tab 09/22/20 cephalexin 500 mg capsule (Keflex) 500 mg PO QID 7 Days #28 cap 09/26/20 doxycycline monohydrate 100 mg 100 mg PO BID 7 Days #14 cap 09/26/20 capsule cyclobenzaprine 10 mg tablet 10 mg PO TID PRN #8 tab 09/29/20 ibuprofen 600 mg tablet 600 mg PO Q8H PRN #15 tab 09/29/20 lidocaine 5 % topical patch 1 patch TOPICAL DAILY #15 ea 09/29/20 (Lidoderm) acetaminophen 500 mg tablet 500 mg PO Q6H PRN #20 tab 10/04/20 (Tylenol Extra Strength) lidocaine 5 % topical patch 1 patch TOPICAL DAILY PRN #30 ea 10/04/20 (Lidoderm) MDD remove after 12 hours methocarbamol 750 mg tablet 750 mg PO Q8H PRN #10 tab 10/04/20 (Robaxin-750) naproxen 500 mg tablet 500 mg PO BID PRN 10 Days #20 tab 10/04/20 ibuprofen 400 mg tablet 400 mg PO Q6H PRN #20 tab 10/30/20 lidocaine 5 % topical patch 1 patch TOPICAL DAILY PRN #1 ea 10/30/20 (Lidoderm) omeprazole 40 mg capsule,delayed 40 mg PO DAILY #20 cap 11/04/20 release sucralfate 1 gram tablet (Carafate) 1 g PO BID #30 tab 11/04/20 mupirocin 2 % topical ointment 1 appl TOPICAL BID #15 g 12/04/20 cyclobenzaprine 10 mg tablet 10 mg PO TID PRN #14 tab 12/07/20 ibuprofen 600 mg tablet 600 mg PO Q6H PRN #30 tab 12/07/20 lidocaine 4 % topical patch 1 patch TOPICAL DAILY PRN #10 ea 12/07/20 omeprazole 20 mg capsule,delayed 20 mg PO DAILY #30 cap 12/15/20 release vitamins no.170-iron 1 tab PO DAILY #30 tab 12/15/20 fumarate 27 mg-folic acid 1 mg tablet cyclobenzaprine 10 mg tablet 10 mg PO TID PRN #20 tab 12/27/20 lidocaine 5 % topical patch 1 patch TOPICAL Q24H #15 ea 12/27/20 ondansetron 4 mg disintegrating 4 mg PO Q8H PRN #20 tab 01/02/21 tablet naloxone 4 mg/actuation nasal 4 mg INTRANASAL Q3M PRN #2 ea 01/08/21 spray (Narcan) cyclobenzaprine 10 mg tablet 10 mg PO TID PRN #10 tab 01/16/21 ketorolac 10 mg tablet 10 mg PO Q8H PRN #10 tab 01/16/21 ketorolac 10 mg tablet 10 mg PO Q6H PRN 5 Days #20 tab 01/27/21 ibuprofen 600 mg tablet 600 mg PO Q6H PRN #20 tab 02/10/21 loperamide 2 mg tablet 2 mg PO Q4H PRN #10 tab 02/10/21 (Anti-Diarrheal (loperamide)) ondansetron HCl 4 mg tablet 4 mg PO Q6H PRN #14 tab 02/10/21 (Zofran) ondansetron 4 mg disintegrating 4 mg PO Q6-8H PRN #14 tab 02/13/21 tablet pantoprazole 20 mg tablet,delayed 20 mg PO DAILY #30 tab 02/13/21 release (Protonix) cyclobenzaprine 10 mg tablet 10 mg PO TID PRN #18 tab 02/16/21 naproxen 500 mg tablet 500 mg PO BID PRN #20 tab 02/16/21 lidocaine 4 % topical patch 1 patch TOPICAL DAILY PRN #10 ea 02/19/21 cyclobenzaprine 10 mg tablet 10 mg PO TID #10 tab 02/27/21 naproxen 500 mg tablet (Naprosyn) 500 mg PO BID #20 tab 02/27/21 cyclobenzaprine 5 mg tablet 5 mg PO TID PRN #10 tab 03/02/21 ibuprofen 600 mg tablet 600 mg PO Q6H PRN #14 tab 03/02/21 lidocaine 5 % topical patch 1 patch TOPICAL DAILY PRN #15 ea 03/02/21 oxycodone 5 mg tablet 5 mg PO Q6H PRN #5 tab 03/02/21 cyclobenzaprine 10 mg tablet 10 mg PO TID PRN #10 tab 03/28/21 lidocaine 4 % topical patch 1 patch TOPICAL BID PRN #10 ea 03/28/21 (Aspercreme (lidocaine)) doxycycline hyclate 100 mg capsule 100 mg PO BID #20 cap 03/31/21 triamcinolone acetonide 0.025 % 1 appl TOPICAL BID #15 g 04/12/21 topical ointment cyclobenzaprine 10 mg tablet 10 mg PO TID PRN #15 tab 05/04/21 lidocaine HCl 4 % topical patch 1 patch TOPICAL BID PRN #30 ea 05/04/21 naproxen 500 mg tablet 500 mg PO BID PRN #20 tab 05/04/21 sucralfate 100 mg/mL oral 10 ml PO BID #420 ml 05/31/21 suspension (Carafate) cyclobenzaprine 10 mg tablet 10 mg PO TID #9 tab 06/10/21 ketorolac 10 mg tablet 10 mg PO TID PRN 5 Days tab 06/10/21 doxycycline hyclate 100 mg tablet 100 mg PO BID #20 tab 07/08/21 cyclobenzaprine 10 mg tablet 10 mg PO TID PRN #14 tab 07/26/21 ketorolac 10 mg tablet 10 mg PO TID PRN 5 Days #15 tab 07/26/21 cyclobenzaprine 10 mg tablet 10 mg PO TID #10 tab 08/06/21 naproxen 500 mg tablet (Naprosyn) 500 mg PO BID #20 tab 08/06/21 famotidine 20 mg tablet (Pepcid) 20 mg PO DAILY PRN #30 tab 08/12/21 cyclobenzaprine 10 mg tablet 10 mg PO TID PRN #14 tab 08/19/21 famotidine 20 mg tablet (Pepcid) 20 mg PO DAILY PRN #30 tab 08/19/21 naproxen 500 mg tablet (Naprosyn) 500 mg PO BID PRN #20 tab 08/19/21 cyclobenzaprine 10 mg tablet 10 mg PO TID PRN #10 tab 09/05/21 Allergies Allergy/AdvReac Type Severity Reaction Status Date / Time Penicillins [PCN] Allergy Mild RASH Verified 08/19/21 05:37 silver AdvReac Intermediate rash Verified 08/19/21 05:37 [From TEGADERM AG MESH] Review of Systems Review of Systems: Constitutional : No Fever, No Chills Cardiovascular : No Chest Pain, No SOB Respiratory : No Cough, No Dyspnea Gastrointestinal : No Nausea, No Vomiting Genitourinary : No Dysuria, No Hematuria Musculoskeletal : positive joint pain, No Myalgias, No Joint Swelling Skin : No Skin lacerations, No rash Neuro : No Weakness, No Numbness PMFSH Past Medical History Medical History Anxiety Bipolar 1 disorder Contusion Depression Foot drop, right foot Heart murmur Schizophrenia Surgical History No pertinent past surgical history Social History Social History Alcohol intake: current Alcohol intake frequency: does not drink Alcohol type: beer and hard liquor Patient Tobacco Use Status: Current everyday Tobacco user Substance Use Type: Marijuana Advance Directives: No Physical Exam Vital Signs: Appearance: Alert. Oriented X3. No acute distress. Eyes: Pupils equal, round and reactive to light. ENT: Pharynx normal. Neck: Normal inspection. Neck supple. CVS: Pulses normal. Respiratory: No respiratory distress. Abdomen: no trauma Skin: Skin warm and dry. Normal skin color. Extremities: No lower extremity edema. R knee appears normal. He is not limping Neuro: Oriented X 3. No motor deficit. No sensory deficit. MDM - Extremity (Nontraumatic) MDM Narrative Medical decision making narrative: 36 yo male with chronic mental illness, gastritis, various aches and pains who comes to the ED frequently for chronic pain complaints - came today with chronic R knee pain - no injury, no swelling, no signs of infection, will offer DEANNE wrap and PCP follow up. Discharge Plan Discharge Clinical Impression: Chronic knee pain Qualifiers: Laterality: right Qualified Code(s): M25.561 - Pain in right knee Patient Disposition: Home, Self-Care Instructions: Arthralgia (ED) Additional Instructions: return to ED for any worsening symptoms or concerns wear deanne wrap as needed for comfort Prescriptions: No Action ketorolac 10 mg tablet 10 mg PO Q6H PRN (Reason: pain) 5 Days Qty: 20 RF: 0 naproxen 500 mg tablet 500 mg PO BID PRN (Reason: pain) Qty: 14 RF: 0 cyclobenzaprine 5 mg tablet 5 mg PO TID PRN (Reason: muscle spasm) Qty: 10 RF: 0 (DME) cane Device See Rx Instructions .ROUTE .MEDSUPPLY Qty: 1 RF: 0 cyclobenzaprine 10 mg tablet 10 mg PO BEDTIME PRN (Reason: muscle spasm) Qty: 3 RF: 0 doxycycline monohydrate 100 mg capsule 100 mg PO BID 7 Days Qty: 14 RF: 0 cephalexin [Keflex] 500 mg capsule 500 mg PO QID 7 Days Qty: 28 RF: 0 lidocaine [Lidoderm] 5 % adhesive patch,medicated 1 patch topical DAILY Qty: 15 RF: 0 ibuprofen 600 mg tablet 600 mg PO Q8H PRN (Reason: pain) Qty: 15 RF: 0 cyclobenzaprine 10 mg tablet 10 mg PO TID PRN (Reason: muscle spasm) Qty: 8 RF: 0 lidocaine [Lidoderm] 5 % adhesive patch,medicated 1 patch topical DAILY PRN (Reason: pain) Qty: 1 RF: 0 ibuprofen 400 mg tablet 400 mg PO Q6H PRN (Reason: pain) Qty: 20 RF: 0 omeprazole 40 mg capsule,delayed release(DR/EC) 40 mg PO DAILY Qty: 20 RF: 0 sucralfate [Carafate] 1 gram tablet 1 g PO BID Qty: 30 RF: 0 mupirocin 2 % ointment 1 appl topical BID Qty: 15 RF: 0 omeprazole 20 mg capsule,delayed release(DR/EC) 20 mg PO DAILY Qty: 30 RF: 0 PNV no.170-iron fum-folic acid 27 mg iron- 1 mg tablet 1 tab PO DAILY Qty: 30 RF: 0 cyclobenzaprine 10 mg tablet 10 mg PO TID PRN (Reason: muscle pain or spasm) Qty: 20 RF: 0 lidocaine 5 % adhesive patch,medicated 1 patch topical Q24H Qty: 15 RF: 0 ondansetron 4 mg tablet,disintegrating 4 mg PO Q8H PRN (Reason: nausea and vomiting) Qty: 20 RF: 0 Narcan 4 mg/actuation spray,non-aerosol 4 mg intranasal Q3M PRN (Reason: opioid overdose) Qty: 2 RF: 0 ketorolac 10 mg tablet 10 mg PO Q6H PRN (Reason: pain) 5 Days Qty: 20 RF: 0 ondansetron HCl [Zofran] 4 mg tablet 4 mg PO Q6H PRN (Reason: nausea and vomiting) Qty: 14 RF: 0 loperamide [Anti-Diarrheal (loperamide)] 2 mg tablet 2 mg PO Q4H PRN (Reason: loose stool) Qty: 10 RF: 0 ibuprofen 600 mg tablet 600 mg PO Q6H PRN (Reason: fever or pain) Qty: 20 RF: 0 lidocaine 5 % adhesive patch,medicated 1 patch topical DAILY PRN (Reason: back pain) Qty: 15 RF: 0 oxycodone 5 mg tablet 5 mg PO Q6H PRN (Reason: pain) Qty: 5 RF: 0 ibuprofen 600 mg tablet 600 mg PO Q6H PRN (Reason: pain) Qty: 14 RF: 0 cyclobenzaprine 5 mg tablet 5 mg PO TID PRN (Reason: muscle spasm) Qty: 10 RF: 0 cyclobenzaprine 10 mg tablet 10 mg PO TID PRN (Reason: muscle spasm) Qty: 10 RF: 0 lidocaine [Aspercreme (lidocaine HCl)] 4 % adhesive patch,medicated 1 patch topical BID PRN (Reason: pain) Qty: 10 RF: 0 naproxen 500 mg tablet 500 mg PO BID PRN (Reason: pain) Qty: 20 RF: 0 cyclobenzaprine 10 mg tablet 10 mg PO TID PRN (Reason: pain) Qty: 15 RF: 0 lidocaine HCl 4 % adhesive patch,medicated 1 patch topical BID PRN (Reason: pain) Qty: 30 RF: 0 doxycycline hyclate 100 mg tablet 100 mg PO BID Qty: 20 RF: 0 Atarax 100 mg Tablet 100 mg PO NEEDED PRN (Reason: Anxiety) RF: 0 hydrocortisone [Anusol-HC] 2.5 % cream with perineal applicator 1 applic [place] BEDTIME PRN (Reason: pain) Qty: 30 RF: 0 polyethylene glycol 3350 [Miralax] 17 gram/dose powder 17 g PO DAILY Qty: 119 RF: 0 cyclobenzaprine 10 mg tablet 10 mg PO TID PRN (Reason: muscle spasm) Qty: 30 RF: 0 tramadol 50 mg tablet 50 mg PO Q8H PRN (Reason: pain) Qty: 12 RF: 0 cyclobenzaprine 5 mg tablet 5 mg PO TID PRN (Reason: muscle spasm) Qty: 5 RF: 0 cyclobenzaprine 10 mg tablet 10 mg PO TID PRN (Reason: muscle spasm) Qty: 20 RF: 0 ketorolac 10 mg tablet 10 mg PO QID 5 Days Qty: 20 RF: 0 methocarbamol [Robaxin-750] 750 mg tablet 750 mg PO Q8H PRN (Reason: pain, severe) Qty: 10 RF: 0 acetaminophen [Tylenol Extra Strength] 500 mg tablet 500 mg PO Q6H PRN (Reason: pain or fever) Qty: 20 RF: 0 lidocaine [Lidoderm] 5 % adhesive patch,medicated 1 patch topical DAILY MDD remove after 12 hours PRN (Reason: pain) Qty: 30 RF: 0 naproxen 500 mg tablet 500 mg PO BID PRN (Reason: pain) 10 Days Qty: 20 RF: 0 cyclobenzaprine 10 mg tablet 10 mg PO TID PRN (Reason: muscle spasm) Qty: 14 RF: 0 lidocaine 4 % adhesive patch,medicated 1 patch topical DAILY PRN (Reason: pain) Qty: 10 RF: 0 ibuprofen 600 mg tablet 600 mg PO Q6H PRN (Reason: pain) Qty: 30 RF: 0 ketorolac 10 mg tablet 10 mg PO Q8H PRN (Reason: pain) Qty: 10 RF: 0 cyclobenzaprine 10 mg tablet 10 mg PO TID PRN (Reason: muscle spasm) Qty: 10 RF: 0 pantoprazole [Protonix] 20 mg tablet,delayed release (DR/EC) 20 mg PO DAILY Qty: 30 RF: 0 ondansetron 4 mg tablet,disintegrating 4 mg PO Q6-8H PRN (Reason: nausea and vomiting) Qty: 14 RF: 0 cyclobenzaprine 10 mg tablet 10 mg PO TID PRN (Reason: pain) Qty: 18 RF: 0 naproxen 500 mg tablet 500 mg PO BID PRN (Reason: pain) Qty: 20 RF: 0 lidocaine 4 % adhesive patch,medicated 1 patch topical DAILY PRN (Reason: pain) Qty: 10 RF: 0 cyclobenzaprine 10 mg tablet 10 mg PO TID Qty: 10 RF: 0 naproxen [Naprosyn] 500 mg tablet 500 mg PO BID Qty: 20 RF: 0 doxycycline hyclate 100 mg capsule 100 mg PO BID Qty: 20 RF: 0 triamcinolone acetonide 0.025 % ointment 1 appl topical BID Qty: 15 RF: 0 sucralfate [Carafate] 100 mg/mL suspension 10 ml PO BID Qty: 420 RF: 0 cyclobenzaprine 10 mg tablet 10 mg PO TID Qty: 9 RF: 0 ketorolac 10 mg tablet 10 mg PO TID PRN (Reason: pain) 5 Days RF: 0 cyclobenzaprine 10 mg tablet 10 mg PO TID PRN (Reason: pain) Qty: 14 RF: 0 ketorolac 10 mg tablet 10 mg PO TID PRN (Reason: pain) 5 Days Qty: 15 RF: 0 cyclobenzaprine 10 mg tablet 10 mg PO TID PRN (Reason: muscle spasm) Qty: 14 RF: 0 famotidine [Pepcid] 20 mg tablet 20 mg PO DAILY PRN (Reason: abdominal discomfort) Qty: 30 RF: 0 naproxen [Naprosyn] 500 mg tablet 500 mg PO BID PRN (Reason: pain) Qty: 20 RF: 0 cyclobenzaprine 10 mg tablet 10 mg PO TID PRN (Reason: muscle spasm) Qty: 10 RF: 0 cyclobenzaprine 10 mg tablet 10 mg PO TID Qty: 10 RF: 0 naproxen [Naprosyn] 500 mg tablet 500 mg PO BID Qty: 20 RF: 0 famotidine [Pepcid] 20 mg tablet 20 mg PO DAILY PRN (Reason: abdominal discomfort) Qty: 30 RF: 0 Referrals: Juan J Wong PA-C [[facility]] - 2 weeks (call for appointment - non emergent)
== END 2021-09-09 02:59 | disposition home or self-care (01) ==
PROVIDERS: Emergency Provider Emergency Medicine
DX: G89.29 Other chronic pain (principal); M25.561 Pain in right knee; F99 Mental disorder, not otherwise specified; I10 Essential (primary) hypertension; F19.10 Other psychoactive substance abuse, uncomplicated; F20.9 Schizophrenia, unspecified
CPT/HCPCS: 99283

== ENCOUNTER 2021-09-16 04:46 | Emergency (ER) | payer OTHER, SELFPAY ==
--- NOTE | 2021-09-16 | ECG_ITS ---
Test Reason : cp Blood Pressure : / mmHG Vent. Rate : 067 BPM Atrial Rate : 067 BPM P-R Int : 178 ms QRS Dur : 072 ms QT Int : 380 ms P-R-T Axes : 069 046 039 degrees QTc Int : 401 ms Normal sinus rhythm Normal ECG No previous ECGs available Referred By: Kenyetta Del Troo Electronically Signed By:ANAIS MEDRANO MD
--- NOTE | ~2021-09-16 | CT_ITS ---
EXAMINATION: CT CHEST WITHOUT CONTRAST CLINICAL INFORMATION: Chest pain. COMPARISON: Left RIBS and chest x-ray 08/24/2021 TECHNIQUE: Multidetector volumetric CT imaging of the chest was done. Axial MIP volume rendering provided. Sagittal and coronal reformatted images were obtained. This CT examination was performed using dose optimization techniques as appropriate, variously including the following: *Automated exposure control *Adjustment of mA and/or kV according to patient size (this includes techniques or standardized protocols for targeted exams where dose is matched to indication/reason for exam; i.e. 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 LUNGS: The lungs are expanded without acute pneumonic process. There is 4 mm nodule in the right upper lobe adjacent to the major fissure axial image 301/5. There is a subpleural right upper lobe 2 mm nodule image 341/5. MEDIASTINUM: The thyroid lobes are symmetric and normal. The central trachea and the bronchi widely patent. Heart size and the great vessels are normal caliber. No pericardial effusion seen. No abnormal size mediastinal or hilar lymphadenopathy. PLEURA: There is no pleural effusion. No pleural mass or thickening. AXILLA: No lymphadenopathy. UPPER ABDOMEN: Visualized liver, spleen, pancreas and bilateral adrenal glands unremarkable. Limited visualization of gallbladder and upper pole kidneys are unremarkable. OSSEOUS STRUCTURES: There is no visible fracture or bony abnormality. CT/CT chest wo con IMPRESSION: Small subpleural 2 mm nodule and a 4 mm nodule right upper lobe adjacent to major fissure, nonspecific. Otherwise unremarkable CT chest exam. No bony abnormality seen.
[2021-09-16 05:04] VITALS: BP 102/48; PULSE 70; RESP 15; TEMP 36.7; O2SAT 97; BMI 27.3
--- NOTE | 2021-09-16 05:22 | PC.NURSE ---
PT TO ROOM, PT IS PACING AROUND THE ROOM IN NAD. PT WATCHING TV. RESPIRATIONS EASY, N/L. SKIN W/D. WILL CONTINUE TO MONITOR PT.
--- NOTE | 2021-09-16 05:26 | PC.NURSE ---
PT AWAITING FOR CT OF CHEST.
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
--- NOTE | 2021-09-16 05:52 | PC.NURSE ---
pt to ct ambulatory in nad.
== END 2021-09-16 07:08 | disposition home or self-care (01) ==
PROVIDERS: Emergency Provider Student in an Organized Health Care Education/Training Program
DX: R07.89 Other chest pain (principal); M79.601 Pain in right arm; F17.200 Nicotine dependence, unspecified, uncomplicated; Z71.6 Tobacco abuse counseling
CPT/HCPCS: 71250; 93005; 99283; 99284

== ENCOUNTER 2021-09-21 07:29 | Emergency (ER) | payer OTHER, SELFPAY ==
[2021-09-21 07:30] VITALS: BP 133/76; PULSE 71; RESP 19; TEMP 36.6; O2SAT 98; BMI 28.1
--- NOTE | 2021-09-21 08:45 | ED.GENADULT ---
HPI - General Adult General Chief complaint: General Medical Stated complaint: neck pain Time Seen by Provider: 09/21/21 08:11 Source: patient Mode of arrival: ambulatory Limitations: no limitations History of Present Illness HPI narrative: 36-year-old male who presents emergency department for evaluation of neck and back pain. Patient states that he has chronic pain in his neck and his back. He states that the pain is gotten worse over the past 3 days. Describes as a constant, sharp pain which is 10/10 and worse with movement. He denied fever, chills, nausea, vomiting, numbness or weakness. He denied loss of bowel or bladder control. He states that in the past he has gone relief his pain with oral Toradol and oral cyclobenzaprine. Related Data Previous Rx's Medication Instructions Recorded cyclobenzaprine 10 mg tablet 10 mg PO TID PRN #20 tab 09/21/21 ketorolac 10 mg tablet 10 mg PO TID 5 Days #15 tab 09/21/21 Allergies Allergy/AdvReac Type Severity Reaction Status Date / Time Penicillins [PCN] Allergy Mild RASH Verified 08/19/21 05:37 silver AdvReac Intermediate rash Verified 08/19/21 05:37 [From [employer] AG MESH] Review of Systems Review of Systems: Yes all other systems are reviewed and are negative [facility] Past Medical History [facility] Narrative: Social history: The patient does smoke cigarettes, he drinks alcohol daily, denies drug use. Medical History Anxiety Bipolar 1 disorder Contusion Depression Foot drop, right foot Heart murmur Schizophrenia Surgical History No pertinent past surgical history Social History Social History Alcohol intake: current Alcohol intake frequency: does not drink Alcohol type: beer and hard liquor Patient Tobacco Use Status: Current everyday Tobacco user Substance Use Type: Marijuana Advance Directives: No Physical Exam Vital Signs: Vital Signs: Last Vital Signs Temp 98 F 09/21/21 07:30 Pulse 71 09/21/21 07:30 Resp 19 09/21/21 07:30 BP 133/76 09/21/21 07:30 Pulse Ox 98 09/21/21 07:30 Body Mass Index 28.1 Const: General: cooperative and no acute distress Orientation/consciousness: oriented to person and oriented to place Limitations: no limitations HENMT: Head: Yes normal to inspection, Yes normocephalic and Yes atraumatic Ears: external ears normal General nose exam: Normal external nose present Face and sinus: Yes normal facial exam Mouth: Normal oral and palatal mucosa present Throat: Yes posterior oropharynx normal Eyes: General: appearance normal, both eyes and all related structures Pupils: Equal, round and reactive pupils present Neck: Other: Tender C-spine and trapezius muscles bilaterally Neck: Yes normal visual inspection, Yes no lymphadenopathy, Yes trachea midline and Yes supple Chest: Chest palpation & inspection: normal inspection of the chest and normal palpation of entire chest wall Resp: Effort & Inspection: normal respiratory effort and able to speak in complete sentences Auscultation: clear to auscultation bilaterally Cardio: Rate: regular rate Rhythm: regular rhythm Heart sounds: S1 normal heart sound present, S2 normal heart sound present and no murmurs GI: Inspection: Yes normal to inspection Palpation (GI): Soft to palpation, nontender and no guarding Auscultation: normal bowel sounds : General: Yes no CVA tenderness Back/Spine/Pelvis: Other: Tender over all of his vertebrae and paraspinal muscles in the thoracic and lumbar area. Back: no CVA tenderness Skin: General skin exam: no rashes or lesions noted Neuro: General: oriented to person and oriented to place Cranial nerves: Yes CN's II-XII intact bilaterally and Yes Equal, round and reactive pupils present Cognition (Neuro): normal cognition Motor exam (neuro): 5/5 motor strength present throughout Extrem: General: Yes normal to inspection Psych: Appearance: grossly normal Speech and movement: Normal speech and movement present Affect: normal affect Attitude: cooperative Thought process: Normal thought process present Thought content: Normal thought content present Course Course Course Narrative: 36-year-old male with a history of chronic neck and back pain presents emergency department for evaluation of pain x3 days. Patient denied fever, chills, numbness, weakness, loss of bowel or bladder control. Physical examination did reveal diffuse tenderness with palpation of his cervical thoracic and lumbar spine as well as the paraspinal muscles in these areas. The patient will be prescribed cyclobenzaprine and Toradol. He was given printed and verbal instructions and discharged home. Discharge Plan Discharge Clinical Impression: Acute neck pain, Back pain, Strain of neck muscle Patient Disposition: Home, Self-Care Instructions: Acute Low Back Pain (ED) Prescriptions: New cyclobenzaprine 10 mg tablet 10 mg PO TID PRN (Reason: muscle pain or spasm) Qty: 20 RF: 0 ketorolac 10 mg tablet 10 mg PO TID 5 Days Qty: 15 RF: 0
== END 2021-09-21 09:16 | disposition home or self-care (01) ==
PROVIDERS: Emergency Provider Emergency Medicine Emergency Medical Services
DX: M54.2 Cervicalgia (principal); M54.50 Low back pain, unspecified
CPT/HCPCS: 99283

== ENCOUNTER 2021-09-28 06:52 | Emergency (ER) | payer OTHER, SELFPAY ==
[2021-09-28 07:04] VITALS: BP 134/72; PULSE 67; RESP 16; TEMP 36.6; O2SAT 100; BMI 29.0
--- NOTE | 2021-09-28 08:06 | ED.BACK ---
HPI - Back Pain/Injury General Chief Complaint: Back Pain/Injury Stated Complaint: back pain Time Seen by Provider: 09/28/21 08:06 Source: patient Mode of arrival: ambulatory Limitations: no limitations History of Present Illness HPI Narrative: 36-year-old male presented to the emergency department for evaluation of chronic neck and back pain. Patient had frequent ED visits for chronic neck and back pain, pain has gotten worse lately, describes the pain as constant, sharp pain, severe 10/10, worse with movement, no relieving factor, no other associated symptoms, no fever, no chills, no nausea, no vomiting, no numbness, no weakness, no urinary or stool incontinence. Patient has been seen by Physical therapy for chronic pain without improvement. Patient declined any new injury recently. Patient declined any SI, HI, or hallucination. Related Data Previous Rx's Medication Instructions Recorded cyclobenzaprine 10 mg tablet 10 mg PO TID PRN #20 tab 09/21/21 ketorolac 10 mg tablet 10 mg PO TID 5 Days #15 tab 09/21/21 Allergies Allergy/AdvReac Type Severity Reaction Status Date / Time Penicillins [PCN] Allergy Mild RASH Verified 08/19/21 05:37 silver AdvReac Intermediate rash Verified 08/19/21 05:37 [From [employer] MESH] Review of Systems Review of Systems: All other systems are reviewed and are negative Constitutional: Reports as per HPI and Reports no additional constitutional complaints Eyes: Reports as per HPI and Reports no additional eye complaints Reports system reviewed and no additional complaints, except as documented Cardiovascular: Reports as per HPI and Reports no additional cardiovascular complaints Respiratory: Reports as per HPI and Reports no additional respiratory complaints Gastrointestinal: Reports as per HPI and Reports no additional gastrointestinal complaints Genitourinary: Reports no additional female genitourinary complaints Musculoskeletal: Reports no additional musculoskeletal complaints Skin/Breast: Reports system reviewed and no additional complaints, except as docu Psychiatric: Reports no additional psychiatric complaints Endocrine: Reports no additional endocrine complaints Hematologic/Lymphatic: Reports no additional hematologic/lymphatic complaints Allergic/Immunologic: Reports no additional allergic/immunologic complaints Reports system reviewed and no additional complaints, except as documented and Reports Abnormal speech present PMFSH Past Medical History Medical History Anxiety Bipolar 1 disorder Contusion Depression Foot drop, right foot Heart murmur Schizophrenia Surgical History No pertinent past surgical history Social History Social History Alcohol intake: current Alcohol intake frequency: a few times a week Alcohol type: beer and hard liquor Patient Tobacco Use Status: Current everyday Tobacco user Use of substances other than those prescribed or required for medical reasons: Yes Substance Use Type: Marijuana Advance Directives: No Advance Directives Information Provided: No Physical Exam Vital Signs: Vital Signs: Last Vital Signs Temp 98 F 09/28/21 07:04 Pulse 67 09/28/21 07:04 Resp 16 09/28/21 07:04 BP 134/72 09/28/21 07:04 Pulse Ox 100 09/28/21 07:04 Body Mass Index 29.0 Vital signs have been reviewed as appeared to be correct. Blood pressure normal. Heart rate normal. Respiration rate normal. Temperature normal. Oxygen saturation normal. Appearance: Alert. Oriented X3. No acute distress. Head: Normal external exam. Normocephalic. Atraumatic. No Hernandez signs noted. No raccoon eyes noted Eyes: PERRLA. EOMI. Conjunctiva and sclera normal. Eyelids normal. ENT: TM's Normal. Pharynx normal. Uvula midline. Moist mucous membranes. No trismus noted. No drooling noted. No muffled voice noted. Neck: Normal inspection. Neck supple. FROM. No adenopathy. Thyroid Normal. No meningeal signs. No neck mass noted. CVS: Normal heart rate and rhythm. Heart sound normal. No murmurs noted. Pulses normal throughout. Respiratory: No respiratory distress. Painless inspiration. Breath sounds normal. No wheezes/rales/rhonchi noted. Chest nontender. No accessory muscle usage noted or decreased air movement noted. Abdomen: Soft and nontender. Bowel sounds normal in all 4 quadrants. No distention noted. No organomegaly noted. No visible injury noted. Back: No CVA tenderness. Full range of motion noted. Skin: Skin warm and dry. Normal skin color. Normal skin turgor. No rashes/lesions/lacerations noted. Extremities: No lower extremity edema. Extremities exhibit normal range of motion. Extremities nontender. Neuro: Oriented X 3. Cranial nerve exam: II-XII are grossly intact No motor deficit. No sensory deficit. Reflexes normal. Course Course Course Narrative: Assessment and plan. 36-year-old male history of acute on chronic neck and back pain, no new history, no neurological symptoms, patient need chronic pain management control to be referred by his PCP. Discharge Plan Discharge Clinical Impression: Chronic back pain Patient Disposition: Home, Self-Care Instructions: Acute Low Back Pain (ED) Prescriptions: No Action cyclobenzaprine 10 mg tablet 10 mg PO TID PRN (Reason: muscle pain or spasm) Qty: 20 RF: 0 ketorolac 10 mg tablet 10 mg PO TID 5 Days Qty: 15 RF: 0 Referrals: Amanda Lamas NP [Primary Care Provider] - 2 days
[2021-09-28] MEDS: Ibuprofen 800 MG TABLET PO (08:42)
== END 2021-09-28 08:43 | disposition home or self-care (01) ==
PROVIDERS: Emergency Provider Emergency Medicine; PCP Nurse Practitioner Adult Health
DX: M54.50 Low back pain, unspecified (principal); G89.4 Chronic pain syndrome; F17.200 Nicotine dependence, unspecified, uncomplicated
CPT/HCPCS: 99283; 99284

== ENCOUNTER 2021-11-07 06:01 | Emergency (ER) | payer OTHER, SELFPAY ==
--- NOTE | ~2021-11-07 | XR_ITS ---
EXAMINATION: XR SHOULDER, LEFT CLINICAL INFORMATION: Left shoulder pain. No trauma. COMPARISON: 01/16/2021 TECHNIQUE: AP external rotation, Grashey, scapular Y, and axillary views of the left shoulder. FINDINGS: Glenohumeral joint space and alignment are maintained. No arthritic deformity, fracture or subluxation at the glenohumeral joint. The humeral head is well positioned over the intact glenoid. An old 0.2 cm calcification projects inferior to the glenoid. This is unchanged compared to 01/16/2021. Acromioclavicular joint is normal. No hook-shaped acromion or acromiohumeral distance narrowing. The visualized portion of the left lung is normal. XR/XR shoulder LT min 2V IMPRESSION: * No acute abnormality of the left shoulder. No fracture or malalignment. * Small 0.2 cm calcification at the inferior glenoid could be the sequela of remote trauma or might represent focus of calcium hydroxyapatite deposition. This is unchanged compared to 01/16/2021.
[2021-11-07 06:38] VITALS: BP 106/77; PULSE 81; RESP 16; TEMP 36.7; O2SAT 96; BMI 28.8
== END 2021-11-07 09:40 | disposition left against medical advice (07) ==
PROVIDERS: Emergency Provider Emergency Medicine
DX: M54.50 Low back pain, unspecified (principal); M25.512 Pain in left shoulder
CPT/HCPCS: 73030; 99281; 99283

== ENCOUNTER 2021-11-25 19:55 | Emergency (ER) | payer OTHER, SELFPAY ==
[2021-11-25 20:03] VITALS: BP 140/87; PULSE 73; RESP 18; TEMP 36.5; O2SAT 100
--- NOTE | 2021-11-25 20:06 | ED_ITS ---
HPI - Overdose General Chief Complaint: Overdose Stated Complaint: OD Time Seen by Provider: 11/25/21 20:00 Source: patient Mode of arrival: EMS Limitations: no limitations History of Present Illness HPI Narrative: Patient comes to the emergency room complaining of an overdose. Patient states that he used heroin and alcohol. EMS called to the radio that they were coming in with an overdose. They dropped the patient off in the room and did not give report to anyone. Unknown if patient received Narcan, patient does not remember anything. Patient denies suicidal homicidal ideation. Patient states that he is hungry, requesting turkey sandwiches and general. Patient denies chest pain, no shortness of breath or abdominal pain. Related Data Previous Rx's Medication Instructions Recorded cyclobenzaprine 10 mg tablet 10 mg PO TID PRN #20 tab 09/21/21 ketorolac 10 mg tablet 10 mg PO TID 5 Days #15 tab 09/21/21 Allergies Allergy/AdvReac Type Severity Reaction Status Date / Time Penicillins [PCN] Allergy Mild RASH Verified 11/25/21 20:17 silver AdvReac Intermediate rash Verified 11/25/21 20:17 [From [employer] AG MESH] Review of Systems Review of Systems: Constitutional : No Weight loss, No Fever, No Chills, No Night Sweats, No Fatigue, No Malaise ENT/Mouth : No Hearing loss, No Ear Pain, No Nasal Congestion, No Sinus Pain, No Hoarseness, No sore throat, No Rhinorrhea, No Swallowing Difficulty Eyes: No Eye Pain, No Swelling, No Redness, No Foreign Body, No Discharge, No Vision Changes Cardiovascular : No Chest Pain, No SOB, No Dyspnea on Exertion, No Orthopnea, No Edema, No Palpitations Respiratory : No Cough, No Sputum, No Wheezing, No Smoke Exposure, No Dyspnea Gastrointestinal : No Nausea, No Vomiting, No Diarrhea, No Constipation, No abdominal Pain, No Hematochezia, No Melena Genitourinary : no irregular bleeding, No Dysuria, No Urinary Frequency, No Hematuria, No Urinary Incontinence, No Urgency, No Flank Pain, No Urinary Flow Changes, No Hesitancy Musculoskeletal : No joint pain, No Myalgias, No Joint Swelling Skin : No Skin Lesions, No rash Neuro : No Weakness, No Numbness, No Paresthesias, No Loss of Consciousness, No Dizziness, No Headache Psych : No Anxiety/Panic, No Depression, No SI/HI/AH/VH, No Social Issues, Heme/Lymph: No Bruising, No Bleeding,No Lymphadenopathy Endocrine : No Polyuria, No Polydipsia, No Temperature Intolerance PMF Past Medical History Medical History Anxiety Bipolar 1 disorder Contusion Depression Foot drop, right foot Heart murmur Schizophrenia Surgical History No pertinent past surgical history Social History Social History Alcohol intake: current Alcohol intake frequency: a few times a week Alcohol type: beer and hard liquor Patient Tobacco Use Status: Current everyday Tobacco user Substance Use Type: Marijuana Advance Directives: No Advance Directives Information Provided: Yes Physical Exam Vital Signs: Vital Signs: Last Vital Signs Temp 97.7 F 11/25/21 20:03 Pulse 73 11/25/21 20:03 Resp 18 11/25/21 20:03 BP 140/87 H 11/25/21 20:03 Pulse Ox 100 11/25/21 20:03 BMI result Body Mass Index 29.0 Const: Other: Appearance: Alert. Oriented X3. No acute distress. Eyes: Pupils equal, round and reactive to light. ENT: Pharynx normal. Neck: Normal inspection. Neck supple. No lymph nodes noted. No crepitus CVS: Normal heart rate and rhythm. Pulses normal. Normal S1 and S2 Respiratory: No respiratory distress. Breath sounds normal. No Wheezing. No rales Abdomen: Soft and nontender. No rigidity. No distention. Skin: Skin warm and dry. Normal skin color. Normal skin turgor. Extremities: No lower extremity edema. No Lacerations. No Rash Neuro: Oriented X 3. No motor deficit. No sensory deficit. Moving all extermities. No slurred speech. Patient is ambulatory with steady gait Course Course Course Narrative: We as action to send the paramedics back. [place] report that [place] give the patient 1 dose of intranasal Narcan. By the time they arrived, patient was awake, alert, patient ambulated by himself to the ambulance Patient is talking to the assistant men's lacrosse coach. Patient declined any help. Patient had peaked good p.o. intake. Tolerated well. Patient is clinically sober. Patient being discharged. Patient's oxygen saturation remains 100% on room air. Patient awake and alert and oriented x4 Discharge Plan Discharge Clinical Impression: Accidental overdose Patient Disposition: Home, Self-Care Instructions: Adult Overdose (ED) Additional Instructions: Please follow-up with your primary care physician tomorrow. If you have any worsening or new symptoms, please return to the emergency room or call 911 Prescriptions: No Action cyclobenzaprine 10 mg tablet 10 mg PO TID PRN (Reason: muscle pain or spasm) Qty: 20 RF: 0 ketorolac 10 mg tablet 10 mg PO TID 5 Days Qty: 15 RF: 0
[2021-11-25 20:12] VITALS: BMI 29.0
[2021-11-25 20:17] VITALS: BP 118/58; PULSE 72; O2SAT 97
--- NOTE | 2021-11-25 20:19 | PC.NURSE ---
MD and recovery couch at bedside. Pt requesting to leave MD VANDANA aware.
--- NOTE | 2021-11-25 20:37 | PC.NURSE ---
Pt provided with food/drink, ambulating to the bathroom with a steady gait. Awaiting DC paperwork.
--- NOTE | 2021-11-25 20:50 | MHC.RECOVSUP ---
? Reason for consult:Detox o?? Current location ?[facility] o?? Identified substance use concern ?Heroin ?? Overdose ?? Seeking ATS (detox) ?? Support ? Intervention: o?? ATS bed search started/completed/in process o?? Community resources provided o?? Harm reduction discussion ? Plan: o?? Follow up tomorrow? o?? Patient awaiting crisis evaluation o?? Patient to follow up with [facility] after discharge ? Additional information: Met with Pt. he states that he use 3 bags of heroin. I ask if he was interested in going to detox Pt. refused to go. He stated that he will go tomorrow to [facility] and talk to someone there to help him get into treatment.?
== END 2021-11-25 21:24 | disposition home or self-care (01) ==
PROVIDERS: Emergency Provider Emergency Medicine
DX: T40.1X1A Poisoning by heroin, accidental (unintentional), initial encounter (principal); T51.0X1A Toxic effect of ethanol, accidental (unintentional), initial encounter; F11.19 Opioid abuse with unspecified opioid-induced disorder; Y92.9 Unspecified place or not applicable; Z79.899 Other long term (current) drug therapy
CPT/HCPCS: 99282; 99283

== ENCOUNTER 2021-12-03 01:10 | Emergency (ER) | payer OTHER, SELFPAY ==
[2021-12-03 01:21] VITALS: BP 112/48; PULSE 87; RESP 16; TEMP 36.8; O2SAT 98; BMI 25.8
--- NOTE | 2021-12-03 01:29 | ED_ITS ---
HPI - General Adult General Chief complaint: General Medical Stated complaint: Shoulder/Neck/Back pain Time Seen by Provider: 12/03/21 01:25 Source: patient and EMS Mode of arrival: EMS Limitations: no limitations History of Present Illness HPI narrative: Patient comes emergency room complaining of left-sided back pain for 5 years. 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 Patient denies chest pain, no shortness of breath. Patient requesting ibuprofen and muscle relaxants Related Data Previous Rx's Medication Instructions Recorded cyclobenzaprine 10 mg tablet 10 mg PO TID PRN #20 tab 09/21/21 ketorolac 10 mg tablet 10 mg PO TID 5 Days #15 tab 09/21/21 cyclobenzaprine 10 mg tablet 10 mg PO TID PRN #14 tab 12/03/21 ibuprofen 600 mg tablet 600 mg PO TID PRN #14 tab 12/03/21 Allergies Allergy/AdvReac Type Severity Reaction Status Date / Time Penicillins [PCN] Allergy Mild RASH Verified 11/25/21 20:17 silver AdvReac Intermediate rash Verified 11/25/21 20:17 [From [employer] MESH] Review of Systems Verdana 4l Review of Systems: Verdana 4d Verdana 4d Constitutional : No Weight loss, No Fever, No Chills, No Night Sweats, No Fatigue, No Malaise ENT/Mouth : No Hearing loss, No Ear Pain, No Nasal Congestion, No Sinus Pain, No Hoarseness, No sore throat, No Rhinorrhea, No Swallowing DifficultyDifficulty Eyes: No Eye Pain, No Swelling, No Redness, No Foreign Body, No Discharge, No Vision Changes Cardiovascular : No Chest Pain, No SOB, No Dyspnea on Exertion, No Orthopnea, No Edema, No Palpitations Respiratory : No Cough, No Sputum, No Wheezing, No Smoke Exposure, No Dyspnea Gastrointestinal : No Nausea, No Vomiting, No Diarrhea, No Constipation, No abdominal Pain, No Hematochezia, No Melena Genitourinary : no irregular bleeding, No Dysuria, No Urinary Frequency, No Hematuria, No Urinary Incontinence, No Urgency, No Flank Pain, No Urinary Flow Changes, No Hesitancy Musculoskeletal : No joint pain, chronic back pain, No Joint Swelling Skin : No Skin Lesions, No rash Neuro : No Weakness, No Numbness, No Paresthesias, No Loss of Consciousness, No Dizziness, No Headache Psych : No Anxiety/Panic, No Depression, No SI/HI/AH/VH, No Social Issues, Heme/Lymph: No Bruising, No Bleeding,No Lymphadenopathy Endocrine : No Polyuria, No Polydipsia, No Temperature Intolerance [facility] Past Medical History Medical History Anxiety Bipolar 1 disorder Contusion Depression Foot drop, right foot Heart murmur Schizophrenia Surgical History No pertinent past surgical history Social History Social History Alcohol intake: current Alcohol intake frequency: a few times a week Alcohol type: beer and hard liquor Patient Tobacco Use Status: Current everyday Tobacco user Substance Use Type: Marijuana Advance Directives: No Physical Exam Verdana 4l Vital Signs: Verdana 4d Verdana 4d Vital Signs: Verdana 4d Verdana 4Bd Last Vital Signs Verdana 4d Director Speech New 4d Director Speech New 4d Temp 98.2 F 12/03/21 01:21 Director Speech New 4d Pulse 87 12/03/21 01:21 Director Speech New 4d Resp 16 12/03/21 01:21 BP 112/48 L 12/03/21 01:21 Pulse Ox 98 12/03/21 01:21 BMI result Body Mass Index 25.8 Const: Other: Appearance: Alert. Oriented X3. No acute distress. Eyes: Pupils equal, round and reactive to light. ENT: Pharynx normal. Neck: Normal inspection. Neck supple. No lymph nodes noted. No crepitus CVS: Normal heart rate and rhythm. Pulses normal. Normal S1 and S2 Respiratory: No respiratory distress. Breath sounds normal. No Wheezing. No rales Abdomen: Soft and nontender. Back: Mild pain to palpation over the suprascapular area on the left side and paraspinal muscles on the left side Skin: Skin warm and dry. Normal skin color. Normal skin turgor. Extremities: No lower extremity edema. No lower extremity edema. No Lacerations. No Rash Neuro: Oriented X 3. No motor deficit. No sensory deficit. Moving all extermities. No slurred speech. Course Course Course Narrative: Patient declined Toradol injection. Patient states that he will do well with ibuprofen and muscle relaxant Discharge Plan Discharge Clinical Impression: Chronic back pain Patient Disposition: Home, Self-Care Instructions: Back Pain (ED) Additional Instructions: Please follow-up with your primary care physician tomorrow. If you have any worsening or new symptoms, please return to the emergency room or call 911 Prescriptions: New cyclobenzaprine 10 mg tablet 10 mg PO TID PRN (Reason: muscle spasm) Qty: 14 0RF Rx Instructions: Do not use before working with machinery or driving ibuprofen 600 mg tablet 600 mg PO TID PRN (Reason: pain) Qty: 14 0RF No Action cyclobenzaprine 10 mg tablet 10 mg PO TID PRN (Reason: muscle pain or spasm) Qty: 20 0RF ketorolac 10 mg tablet 10 mg PO TID 5 Days Qty: 15 0RF
== END 2021-12-03 01:42 | disposition home or self-care (01) ==
PROVIDERS: Emergency Provider Emergency Medicine
DX: M54.50 Low back pain, unspecified (principal); F17.200 Nicotine dependence, unspecified, uncomplicated; F12.90 Cannabis use, unspecified, uncomplicated; Z71.6 Tobacco abuse counseling; Z79.899 Other long term (current) drug therapy
CPT/HCPCS: 99283

== ENCOUNTER 2021-12-12 17:49 | Emergency (ER) | payer OTHER, SELFPAY ==
[2021-12-12 17:59] VITALS: BP 122/83; PULSE 86; RESP 16; O2SAT 99
[2021-12-12 18:00] VITALS: BP 122/83; PULSE 86; RESP 14; TEMP 36.8; O2SAT 99; BMI 25.8
--- NOTE | 2021-12-12 18:01 | PC.NURSE ---
pt denies si/ hi
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
[2021-12-12] MEDS: Naloxone HCl Nasal TAKE HOME 4 MG SPRAY NOSTRILALT (18:15)
== END 2021-12-12 18:16 | disposition left against medical advice (07) ==
PROVIDERS: Emergency Provider Internal Medicine
DX: T40.2X1A Poisoning by other opioids, accidental (unintentional), initial encounter (principal); R40.20 Unspecified coma; Y92.521 Bus station as the place of occurrence of the external cause; F11.10 Opioid abuse, uncomplicated; F17.200 Nicotine dependence, unspecified, uncomplicated
CPT/HCPCS: 99283; 99284

== ENCOUNTER 2021-12-13 06:18 | Emergency (ER) | payer OTHER, SELFPAY ==
[2021-12-13 06:26] VITALS: BP 119/71; PULSE 78; RESP 16; TEMP 37; O2SAT 96; BMI 28.1
== END 2021-12-13 07:49 | disposition left against medical advice (07) ==
PROVIDERS: Emergency Provider Emergency Medicine
DX: G89.29 Other chronic pain (principal); M54.50 Low back pain, unspecified
CPT/HCPCS: 99282

== ENCOUNTER 2021-12-27 02:49 | Emergency (ER) | payer OTHER, SELFPAY ==
[2021-12-27 03:11] VITALS: PULSE 80; RESP 16; TEMP 37; O2SAT 100; BMI 24.3
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
== END 2021-12-27 04:28 | disposition home or self-care (01) ==
PROVIDERS: Emergency Provider Emergency Medicine
DX: S20.222A Contusion of left back wall of thorax, initial encounter (principal); Y00.XXXA Assault by blunt object, initial encounter; G89.29 Other chronic pain; M54.6 Pain in thoracic spine; F12.90 Cannabis use, unspecified, uncomplicated; Y93.9 Activity, unspecified; Y92.9 Unspecified place or not applicable; Y99.9 Unspecified external cause status
CPT/HCPCS: 99283; 99284

== ENCOUNTER 2022-01-01 21:39 | Emergency (ER) | payer OTHER, SELFPAY ==
[2022-01-01 22:09] VITALS: BP 134/78; BP 137/58; PULSE 78; PULSE 88; RESP 16; TEMP 36.2; O2SAT 98; BMI 26.6
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
[2022-01-01] MEDS: Naloxone HCl Nasal 4 MG SPRAY NOSTRILALT (22:37)
--- NOTE | 2022-01-01 22:37 | PC.NURSE ---
PT O2 SAT DOWN TO 68% RA, PT DIFFICULT TO AROUSE BUT AWAKE AFTER STERNAL RUB. PER PROVIDER PUT ON 4L NC AND ADMIN 4MG NASAL NARCAN.
--- NOTE | 2022-01-01 22:38 | MHC.CARE ---
CARE Team met with pt to offer SUDE and detox resources. Pt reports that he started using heroin and ETOH at [age] years old. He reports that his is sick and he needs to return home to help his sick . He is interested in contact information for detoxes. He reports a psychiatric history of schizoaffective d/o and has a outpatient therapist who is in the process of referring him to a psychiatrist. CARE Team provided pt with phone numbers for detoxes and attempted to contact pt's to determine if she could leaf size picker pt from hospital upon discharge, but received a message that her phone is not accepting calls at this time. CARE Team informed ED provider, Dr. Del Toro.
== END 2022-01-02 00:34 | disposition home or self-care (01) ==
PROVIDERS: Emergency Provider Student in an Organized Health Care Education/Training Program
DX: F19.10 Other psychoactive substance abuse, uncomplicated (principal); F17.200 Nicotine dependence, unspecified, uncomplicated
CPT/HCPCS: 99283

== ENCOUNTER 2022-01-09 16:11 | Emergency (ER) | payer OTHER, SELFPAY ==
[2022-01-09 16:17] VITALS: BP 140/68; BP 153/95; PULSE 104; PULSE 76; RESP 18; TEMP 36.3; O2SAT 97; O2SAT 98; BMI 25.0
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
[2022-01-09 17:09] LABS: COVID-19 Test Negative (Negative)
--- NOTE | 2022-01-09 17:30 | MHC.RECOVSUP ---
? Reason for consult Recovery Support o Current location: 06 o Identified substance use concern: states Alcohol <del>-</del> <del>Overdose</del> <del>-</del> <del>Withdrawal</del> <del>-</del> <del>Seeking</del> <del>ATS</del> <del>(detox)</del> <del>-</del> <del>Support</del> <del>?</del> <del>Intervention:</del> <del>o</del> <del>ATS</del> <del>bed</del> <del>search</del> <del>started/completed/in</del> <del>process</del> <del>o</del> <del>MAT</del> <del>started</del> <del>or</del> <del>to</del> <del>be</del> <del>started</del> <del>o</del> <del>Community</del> <del>resources</del> <del>provided</del> <del>o</del> <del>Harm</del> <del>reduction</del> <del>discussion</del> <del>?</del> <del>Plan:</del> <del>o</del> <del>Referral</del> <del>to</del> <del>[facility]</del> <del>o</del> <del>Bed</del> <del>search</del> <del>in</del> <del>progress</del> <del>to</del> <del>o</del> <del>Follow</del> <del>up</del> <del>tomorrow</del> <del>o</del> <del>Patient</del> <del>awaiting</del> <del>crisis</del> <del>evaluation</del> <del>o</del> <del>Patient</del> <del>to</del> <del>follow</del> <del>up</del> <del>with</del> <del>[facility]</del> <del>after</del> <del>discharge</del> ? Additional information: Tried to interview patient and patient did not want to talk.. All he wants to do is go home..
== END 2022-01-09 18:26 | disposition home or self-care (01) ==
PROVIDERS: Emergency Provider Emergency Medicine
DX: F10.920 Alcohol use, unspecified with intoxication, uncomplicated (principal); Y90.9 Presence of alcohol in blood, level not specified; Z20.822 Contact with and (suspected) exposure to COVID-19; I10 Essential (primary) hypertension; F99 Mental disorder, not otherwise specified; F19.10 Other psychoactive substance abuse, uncomplicated; F12.90 Cannabis use, unspecified, uncomplicated; F17.200 Nicotine dependence, unspecified, uncomplicated
CPT/HCPCS: 87635; 99283

== ENCOUNTER 2022-01-26 01:40 | Emergency (ER) | payer OTHER, SELFPAY ==
[2022-01-26 01:57] VITALS: BP 145/82; PULSE 75; RESP 18; TEMP 37.1; O2SAT 97; BMI 22.8
--- NOTE | 2022-01-26 04:01 | PC.NURSE ---
Pt ambulated in from waiting room with a steady gait.
--- NOTE | 2022-01-26 06:36 | ED.BACK ---
HPI - Back Pain/Injury General Chief Complaint: Back Pain/Injury Stated Complaint: lower back pain Time Seen by Provider: 01/26/22 06:00 Source: patient and old records reviewed Mode of arrival: ambulatory Limitations: no limitations Related Data Previous Rx's Medication Instructions Recorded cyclobenzaprine 10 mg tablet 10 mg PO TID PRN #20 tab 09/21/21 ketorolac 10 mg tablet 10 mg PO TID 5 Days #15 tab 09/21/21 cyclobenzaprine 10 mg tablet 10 mg PO TID PRN #14 tab 12/03/21 ibuprofen 600 mg tablet 600 mg PO TID PRN #14 tab 12/03/21 cyclobenzaprine 10 mg tablet 10 mg PO TID PRN #10 tab 12/27/21 ibuprofen 600 mg tablet 600 mg PO Q6H PRN #20 tab 12/27/21 Allergies Allergy/AdvReac Type Severity Reaction Status Date / Time Penicillins [PCN] Allergy Mild RASH Verified 12/13/21 06:30 silver AdvReac Intermediate rash Verified 12/13/21 06:30 [From TEGADERM AG MESH] [facility] Past Medical History Attestation statement: The following information was validated with the patient. Medical History Anxiety Bipolar 1 disorder Contusion Depression Foot drop, right foot Heart murmur Schizophrenia Surgical History No pertinent past surgical history Social History Social History Alcohol intake: current Alcohol intake frequency: a few times a week Alcohol type: beer and hard liquor Patient Tobacco Use Status: Current everyday Tobacco user Substance Use Type: Marijuana Advance Directives: No Advance Directives Information Provided: Yes Physical Exam Vital Signs: Vital Signs: Last Vital Signs Temp 98.8 F 01/26/22 01:57 Pulse 75 01/26/22 01:57 Resp 18 01/26/22 01:57 BP 145/82 H 01/26/22 01:57 Pulse Ox 97 01/26/22 01:57 BMI result Body Mass Index 22.8 Discharge Plan Discharge Prescriptions: No Action cyclobenzaprine 10 mg tablet 10 mg PO TID PRN (Reason: muscle pain or spasm) Qty: 20 0RF ketorolac 10 mg tablet 10 mg PO TID 5 Days Qty: 15 0RF cyclobenzaprine 10 mg tablet 10 mg PO TID PRN (Reason: muscle spasm) Qty: 14 0RF Rx Instructions: Do not use before working with machinery or driving ibuprofen 600 mg tablet 600 mg PO TID PRN (Reason: pain) Qty: 14 0RF cyclobenzaprine 10 mg tablet 10 mg PO TID PRN (Reason: muscle spasm) Qty: 10 0RF ibuprofen 600 mg tablet 600 mg PO Q6H PRN (Reason: pain) Qty: 20 0RF
== END 2022-01-26 06:43 | disposition left against medical advice (07) ==
PROVIDERS: Emergency Provider Emergency Medicine
DX: M54.50 Low back pain, unspecified (principal)
CPT/HCPCS: 99281; 99282

== ENCOUNTER 2022-02-01 09:17 | Emergency (ER) | payer OTHER, SELFPAY ==
[2022-02-01 09:29] VITALS: BP 141/83; PULSE 69; RESP 18; TEMP 36.2; O2SAT 99; BMI 23.6
--- NOTE | 2022-02-01 09:53 | ED_ITS ---
HPI - Extremity Injury (Lower) General Chief Complaint: Extremity Injury, Lower Stated Complaint: r toes issue Time Seen by Provider: 02/01/22 09:39 Source: patient Mode of arrival: ambulatory Limitations: no limitations History of Present Illness HPI Narrative: 37 yo male here with reports of pain in between his 3rd and 4th digit on his right foot x several weeks. No known injury or trauma. No redness, swelling, drainage, fevers, chills. Related Data Previous Rx's Medication Instructions Recorded cyclobenzaprine 10 mg tablet 10 mg PO TID PRN #20 tab 09/21/21 ketorolac 10 mg tablet 10 mg PO TID 5 Days #15 tab 09/21/21 cyclobenzaprine 10 mg tablet 10 mg PO TID PRN #14 tab 12/03/21 ibuprofen 600 mg tablet 600 mg PO TID PRN #14 tab 12/03/21 cyclobenzaprine 10 mg tablet 10 mg PO TID PRN #10 tab 12/27/21 ibuprofen 600 mg tablet 600 mg PO Q6H PRN #20 tab 12/27/21 Allergies Allergy/AdvReac Type Severity Reaction Status Date / Time Penicillins [PCN] Allergy Mild RASH Verified 12/13/21 06:30 silver AdvReac Intermediate rash Verified 12/13/21 06:30 [From TEGADERM AG MESH] Review of Systems Review of Systems: Yes all other systems are reviewed and are negative Constitutional: Constitutional: Reports no additional constitutional complaints, Denies body ache(s), Denies chills, Denies fever(s), Denies headache(s) and Denies weakness Eyes: Eyes: Reports no additional eye complaints and Denies change in vision ENT: Reports system reviewed and no additional complaints, except as documented, Denies dizziness, Denies headache(s), Denies nasal congestion, Denies nasal discharge and Denies neck pain Cardiovascular: Cardiovascular: Reports no additional cardiovascular complaints, Denies chest pain, Denies leg edema and Denies dyspnea Respiratory: Respiratory: Reports no additional respiratory complaints, Denies cough and Denies dyspnea Gastrointestinal: Gastrointestinal: Reports no additional gastrointestinal complaints, Denies abdominal pain, Denies diarrhea, Denies nausea and Denies vomiting Genitourinary: Genitourinary: Denies urinary incontinence Musculoskeletal: Musculoskeletal: Reports no additional musculoskeletal complaints, Denies back pain, Denies arthralgias, Denies joint swelling, Denies neck pain, Denies numbness and Denies tingling Integumentary/Breasts: Skin/Breast: Reports system reviewed and no additional complaints, except as docu and Denies rash Neurologic: Reports system reviewed and no additional complaints, except as documented, Denies Abnormal speech present, Denies dizziness, Denies headache(s), Denies numbness, Denies tingling and Denies weakness PMFSH Past Medical History Attestation statement: The following information was validated with the patient. Source: old records reviewed and nursing notes reviewed Medical History Anxiety Bipolar 1 disorder Contusion Depression Foot drop, right foot Heart murmur Schizophrenia Surgical History No pertinent past surgical history Social History Social History Alcohol intake: current Alcohol intake frequency: a few times a week Alcohol type: beer and hard liquor Patient Tobacco Use Status: Current everyday Tobacco user Substance Use Type: Marijuana Advance Directives: Yes Advance Directives Information Provided: Yes Advance Directives on File: No Physical Exam Vital Signs: Vital Signs: Last Vital Signs Temp 97.1 F 02/01/22 09:29 Pulse 69 02/01/22 09:29 Resp 18 02/01/22 09:29 BP 141/83 H 02/01/22 09:29 Pulse Ox 99 02/01/22 09:29 BMI result Body Mass Index 23.6 Const: General: cooperative, healthy appearing, comfortable and no acute distress Orientation/consciousness: patient oriented x3 Limitations: no limitations HEENT: Head: Yes normal to inspection Ears: hearing grossly normal bilat erally General nose exam: Normal external nose present Face and sinus: Yes normal facial exam Mouth: Normal oral and palatal mucosa present Throat: Yes posterior oropharynx normal Eyes: General: appearance normal, both eyes and all related structures Pupils: Equal, round and reactive pupils present Neck: Neck: Yes normal visual inspection Chest: Chest palpation & inspection: normal inspection of the chest Resp: Effort & Inspection: normal respiratory effort Auscultation: clear to auscultation bilaterally Cardio: Rate: regular rate Rhythm: regular rhythm Peripheral pulses: Peripheral pulses 2+ throughout GI: Inspection: Yes normal to inspection Palpation (GI): Soft to palpation and nontender Auscultation: normal bowel sounds Back/Spine/Pelvis: Thoracic/Lumbar Spine: thoracic and lumbar spine normal to inspection Skin: General skin exam: no rashes or lesions noted Neuro: General: patient oriented x3, no focal motor deficits and normal sensation to monofilament Cranial nerves: Yes Equal, round and reactive pupils present Cognition (Neuro): normal cognition Speech: No Abnormal speech present Gait exam (Neuro): Normal gait present Motor exam (neuro): 5/5 motor strength present throughout Extrem: General: Yes normal to inspection Ankle/foot/toe images: 1. on the lateral aspect of the 3rd digit there is raised rough area that is firm and tender to touch. No warmth, redness, swelling. Course Course Course Narrative: 37 yo male here with reports of tenderness in between the 3rd and 4th digit x several weeks. Exam is c/w with callus with no s/s of infection. Recommended cushioning, wearing well fitting shoes. Reviewed worrisome signs/symptoms with patient and when to seek additional care. Comfortable with plan for discharge home. MDM - Extremity Injury (Lower) Medical Records Attestation: I reviewed the patient's medical records. Lab Data Attestation: I reviewed the patient's lab results. Discharge Plan Discharge Clinical Impression: Callus between toes Patient Disposition: Home, Self-Care Instructions: Contusion in Adults (ED) Additional Instructions: You have a callus in between your toes. The goal is to keep the pressure off of it. Buy foam cushions at local drug store to put in between your toes Prescriptions: No Action cyclobenzaprine 10 mg tablet 10 mg PO TID PRN (Reason: muscle pain or spasm) Qty: 20 0RF ketorolac 10 mg tablet 10 mg PO TID 5 Days Qty: 15 0RF cyclobenzaprine 10 mg tablet 10 mg PO TID PRN (Reason: muscle spasm) Qty: 14 0RF Rx Instructions: Do not use before working with machinery or driving ibuprofen 600 mg tablet 600 mg PO TID PRN (Reason: pain) Qty: 14 0RF cyclobenzaprine 10 mg tablet 10 mg PO TID PRN (Reason: muscle spasm) Qty: 10 0RF ibuprofen 600 mg tablet 600 mg PO Q6H PRN (Reason: pain) Qty: 20 0RF Referrals: Physician,Unknown J [Primary Care Provider] - 1 week (as needed) Interventions: ED Discharge Assessment Last Done: 02/01/22 10:01 Discharge Date/Time: 02/01/22 10:02
--- NOTE | 2022-02-01 10:00 | PC.NURSE ---
CALLUS RIGHT FOOT IN BETWEEN 3RD TOE. NAD.
== END 2022-02-01 10:02 | disposition home or self-care (01) ==
PROVIDERS: Emergency Provider Emergency Medicine
DX: L84 Corns and callosities (principal); F17.200 Nicotine dependence, unspecified, uncomplicated; F12.90 Cannabis use, unspecified, uncomplicated; Z79.899 Other long term (current) drug therapy; Z71.6 Tobacco abuse counseling
CPT/HCPCS: 99283

== ENCOUNTER 2022-02-08 10:32 | Emergency (ER) | payer OTHER, SELFPAY ==
[2022-02-08 11:08] VITALS: BP 128/82; PULSE 74; RESP 16; TEMP 36.1; O2SAT 100; BMI 23.6
--- NOTE | 2022-02-08 11:39 | ED.GENADULT ---
HPI - General Adult General Chief complaint: Dental/Oral Stated complaint: Blister in mouth Time Seen by Provider: 02/08/22 11:12 Source: patient Mode of arrival: ambulatory Limitations: no limitations History of Present Illness HPI narrative: 37-year-old male presents to ED blister on right inner cheek. Patient states he bit his cheek by accident 2 days ago and since then has had painful blister. Patient denies any facial swelling, neck swelling, drooling, fever, chills, sore throat, change in voice, chest pain, or shortness of breath. Related Data Previous Rx's Medication Instructions Recorded cyclobenzaprine 10 mg tablet 10 mg PO TID PRN #20 tab 09/21/21 ketorolac 10 mg tablet 10 mg PO TID 5 Days #15 tab 09/21/21 cyclobenzaprine 10 mg tablet 10 mg PO TID PRN #14 tab 12/03/21 ibuprofen 600 mg tablet 600 mg PO TID PRN #14 tab 12/03/21 cyclobenzaprine 10 mg tablet 10 mg PO TID PRN #10 tab 12/27/21 ibuprofen 600 mg tablet 600 mg PO Q6H PRN #20 tab 12/27/21 benzocaine 10 % mucosal gel 1 appl MUCOUS MEMBRANE QID PRN #9 g 02/08/22 (Anbesol (benzocaine)) Allergies Allergy/AdvReac Type Severity Reaction Status Date / Time Penicillins [PCN] Allergy Mild RASH Verified 12/13/21 06:30 silver AdvReac Intermediate rash Verified 12/13/21 06:30 [From TEGADERM AG MESH] Review of Systems Review of Systems: Right cheek sore Yes all other systems are reviewed and are negative PMFSH Past Medical History Medical History Anxiety Bipolar 1 disorder Contusion Depression Foot drop, right foot Heart murmur Schizophrenia Surgical History No pertinent past surgical history Social History Social History Alcohol intake: current Alcohol intake frequency: a few times a week Alcohol type: beer and hard liquor Patient Tobacco Use Status: Current everyday Tobacco user Substance Use Type: Marijuana Advance Directives: No Advance Directives Information Provided: No Physical Exam ED Vital Signs: Vital Signs - 24 hr 02/08/22 11:08 Temperature 97.0 F Pulse Rate 74 Respiratory Rate 16 Blood Pressure 128/82 Pulse Oximetry 100 BMI result Body Mass Index 23.6 Const General: cooperative, healthy appearing, comfortable, no acute distress, well developed, alert, awake and Physically active Orientation/consciousness: patient oriented x3 HENMT Other: Negative for any facial swelling or neck swelling Head: Yes normal to inspection, Yes No palpable skull fracture present, Yes normocephalic, Yes atraumatic and No abrasion Teeth image: 1. Small canker sore. Negative for any pus discharge, drooling, dental infections, trismus, or signs of abscess. Eyes General: appearance normal, both eyes and all related structures Neck Neck: Yes normal visual inspection, Yes full ROM, Yes no lymphadenopathy, Yes no meningeal signs, Yes trachea midline, Yes supple, No anterior neck swelling and No tender Chest Chest palpation & inspection: normal inspection of the chest and normal palpation of entire chest wall Resp Effort & Inspection: normal respiratory effort and able to speak in complete sentences Auscultation: clear to auscultation bilaterally Cardio Jugular venous distension: no JVD Heart sounds: S1 normal heart sound present and S2 normal heart sound present GI Inspection: Yes normal to inspection and No abdominal wall ecchymosis Palpation (GI): Soft to palpation, not firm, nontender, no guarding and not rigid General: No CVA tenderness and Yes no CVA tenderness Back/Spine/Pelvis Back: no CVA tenderness, No CVA tenderness and No back tenderness Skin General skin exam: no rashes or lesions noted and elasticity normal Neuro General: patient oriented x3, gait normal, moves all extremities, no meningeal signs and CN's II-XI intact bilaterally Extrem General: Yes normal to inspection and Yes full ROM Psych Appearance: grossly normal, well kempt and not disheveled Course Course Course Narrative: Canker sore. Reevaluation(s) Reevaluation #1: Negative for signs of abscess, thrush, cellulitis, or any medical/surgical etiology oral cavity. Time: 11:46 Medical Decision Making MDM Narrative Medical decision making narrative: 11:46 Discharge Plan Discharge Clinical Impression: Canker sores oral Patient Disposition: Home, Self-Care Instructions: Canker Sores (ED) Additional Instructions: Return to ED for any facial swelling, neck swelling, drooling, change in voice, chest pain, shortness of breath, dental pain, fever, chills, pus discharge, foul odor, worsening or lesions, or any other concerning symptoms. Please follow up with primary care provider. Prescriptions: New Anbesol (benzocaine) 10 % gel 1 appl mucous membrane QID PRN (Reason: mouth irritation) Qty: 9 0RF No Action cyclobenzaprine 10 mg tablet 10 mg PO TID PRN (Reason: muscle pain or spasm) Qty: 20 0RF ketorolac 10 mg tablet 10 mg PO TID 5 Days Qty: 15 0RF cyclobenzaprine 10 mg tablet 10 mg PO TID PRN (Reason: muscle spasm) Qty: 14 0RF Rx Instructions: Do not use before working with machinery or driving ibuprofen 600 mg tablet 600 mg PO TID PRN (Reason: pain) Qty: 14 0RF cyclobenzaprine 10 mg tablet 10 mg PO TID PRN (Reason: muscle spasm) Qty: 10 0RF ibuprofen 600 mg tablet 600 mg PO Q6H PRN (Reason: pain) Qty: 20 0RF Interventions: ED Discharge Assessment Last Done: 02/08/22 11:55 Discharge Date/Time: 02/08/22 11:57 Print Language: [place]
== END 2022-02-08 11:57 | disposition home or self-care (01) ==
PROVIDERS: Emergency Provider Emergency Medicine
DX: S00.522A Blister (nonthermal) of oral cavity, initial encounter (principal); K12.0 Recurrent oral aphthae; X58.XXXA Exposure to other specified factors, initial encounter; Y93.9 Activity, unspecified; Y92.9 Unspecified place or not applicable; Y99.9 Unspecified external cause status; Z79.899 Other long term (current) drug therapy
CPT/HCPCS: 99283

== ENCOUNTER 2022-02-15 10:03 | Emergency (ER) | payer OTHER, SELFPAY ==
--- NOTE | ~2022-02-15 | XR_ITS ---
EXAMINATION: XR ABDOMEN WITH DECUBITUS VIEWS CLINICAL INDICATION: Abdominal pain. Evaluate for free air. COMPARISON: None TECHNIQUE: Abdomen, 2 views FINDINGS: Lung bases are normal. The visualized cardiomediastinal silhouette is normal in size and contour. Bowel gas pattern is normal. No dilated bowel loops or pneumoperitoneum. No pathologic calcifications in the abdomen or pelvis. The visualized bones are normal. XR/XR abdomen w decubitus IMPRESSION: Normal radiographic examination of the abdomen. No evidence of bowel obstruction or pneumoperitoneum.
[2022-02-15 10:12] VITALS: BP 115/75; PULSE 66; RESP 16; TEMP 36.4; O2SAT 100; BMI 22.6
--- NOTE | 2022-02-15 10:30 | ED.ABDPAIN ---
HPI - Abdominal Pain General Chief Complaint: Abdominal Pain Stated Complaint: Abd pain Time Seen by Provider: 02/15/22 10:26 Source: patient and family Mode of arrival: ambulatory Limitations: no limitations History of Present Illness HPI narrative: 37-year-old male came in for evaluation of abdominal pain and vomiting with streaks of blood. Patient with known history of peptic ulcer disease (reportedly diagnosed by upper endoscopy at [facility]), patient was upset last week drink most of the week last drink was 3 days ago started to have upper abdominal pain and nausea with vomiting, this morning patient vomited with streaks of blood, patient admitted also to using cocaine. Pain was described as epigastric, dull aching pain, constant for the past 3-4 days, no radiation, no relieving factor, pain is worsening with food, associated with nausea and vomiting with streaks of blood sometimes but no diarrhea. No dysuria, no frequency, no blood in the urine. Deny any past surgical history. Related Data Previous Rx's Medication Instructions Recorded cyclobenzaprine 10 mg tablet 10 mg PO TID PRN #20 tab 09/21/21 ketorolac 10 mg tablet 10 mg PO TID 5 Days #15 tab 09/21/21 cyclobenzaprine 10 mg tablet 10 mg PO TID PRN #14 tab 12/03/21 ibuprofen 600 mg tablet 600 mg PO TID PRN #14 tab 12/03/21 cyclobenzaprine 10 mg tablet 10 mg PO TID PRN #10 tab 12/27/21 ibuprofen 600 mg tablet 600 mg PO Q6H PRN #20 tab 12/27/21 benzocaine 10 % mucosal gel 1 appl MUCOUS MEMBRANE QID PRN #9 g 02/08/22 (Anbesol (benzocaine)) omeprazole magnesium 20 mg 20 mg PO BID #30 tab 02/15/22 tablet,delayed release (Prilosec OTC) Allergies Allergy/AdvReac Type Severity Reaction Status Date / Time Penicillins [PCN] Allergy Mild RASH Verified 12/13/21 06:30 silver AdvReac Intermediate rash Verified 12/13/21 06:30 [From TEGADERM AG MESH] Review of Systems Review of Systems All other systems are reviewed and are negative Constitutional: Reports as per HPI and Reports no additional constitutional complaints Eyes: Reports as per HPI and Reports no additional eye complaints Reports system reviewed and no additional complaints, except as documented Cardiovascular: Reports as per HPI and Reports no additional cardiovascular complaints Respiratory: Reports as per HPI and Reports no additional respiratory complaints Gastrointestinal: Reports as per HPI and Reports no additional gastrointestinal complaints Genitourinary: Reports no additional female genitourinary complaints Musculoskeletal: Reports no additional musculoskeletal complaints Skin/Breast: Reports system reviewed and no additional complaints, except as docu Psychiatric: Reports no additional psychiatric complaints Endocrine: Reports no additional endocrine complaints Hematologic/Lymphatic: Reports no additional hematologic/lymphatic complaints Allergic/Immunologic: Reports no additional allergic/immunologic complaints Reports system reviewed and no additional complaints, except as documented and Reports Abnormal speech present [facility] Past Medical History Medical History Anxiety Bipolar 1 disorder Contusion Depression Foot drop, right foot Heart murmur Schizophrenia Surgical History No pertinent past surgical history Social History Social History Alcohol intake: current Alcohol intake frequency: a few times a week Alcohol type: beer and hard liquor Patient Tobacco Use Status: Current everyday Tobacco user Substance Use Type: Marijuana Advance Directives: No Advance Directives Information Provided: No Physical Exam ED Vital Signs: Vital Signs - 24 hr 02/15/22 10:12 02/15/22 12:31 Temperature 97.5 F 98.5 F Pulse Rate 66 59 Respiratory Rate 16 15 Blood Pressure 115/75 118/67 Pulse Oximetry 100 100 BMI result Body Mass Index 22.6 Vital signs have been reviewed as appeared to be correct. Blood pressure normal. Heart rate normal. Respiration rate normal. Temperature normal. Oxygen saturation normal. Appearance: Alert. Oriented X3. No acute distress. Head: Normal external exam. Normocephalic. Atraumatic. No Hernandez signs noted. No raccoon eyes noted Eyes: PERRLA. EOMI. Conjunctiva and sclera normal. Eyelids normal. ENT: TM's Normal. Pharynx normal. Uvula midline. Moist mucous membranes. No trismus noted. No drooling noted. No muffled voice noted. Neck: Normal inspection. Neck supple. FROM. No adenopathy. Thyroid Normal. No meningeal signs. No neck mass noted. CVS: Normal heart rate and rhythm. Heart sound normal. No murmurs noted. Pulses normal throughout. Respiratory: No respiratory distress. Painless inspiration. Breath sounds normal. No wheezes/rales/rhonchi noted. Chest nontender. No accessory muscle usage noted or decreased air movement noted. Abdomen: Soft, epigastric tenderness, no rebound tenderness, no guarding Bowel sounds normal in all 4 quadrants. No distention noted. No organomegaly noted. No visible injury noted. Back: No CVA tenderness. Full range of motion noted. Skin: Skin warm and dry. Normal skin color. Normal skin turgor. No rashes/lesions/lacerations noted. Extremities: No lower extremity edema. Extremities exhibit normal range of motion. Extremities nontender. Neuro: Oriented X 3. Cranial nerve exam: II-XII are grossly intact No motor deficit. No sensory deficit. Reflexes normal. Course Course Course Narrative: Assessment and plan. 37-year-old male history of alcohol abuse and substance abuse presenting after bingeing drinking alcohol last week with upper abdominal pain, patient is known to have PUD, labs today is consistent with non complicated pancreatitis, patient has chronic elevation of lipase, patient's symptoms improved after IV fluids, able to tolerate p.o. challenge, patient was instructed to refrain from drinking alcohol or eating greasy food. MDM - Abdominal Pain Medical Records Attestation: I reviewed the patient's medical records. Lab Data Attestation: I reviewed the patient's lab results. Result diagrams: 02/15/22 10:55 02/15/22 10:55 Labs: Lab Results 02/15/22 02/15/22 Range/Units 10:55 10:55 WBC 8.1 (4.8-10.8) X10*3/uL RBC 4.68 (4.60-5.80) X10*6/uL Hgb 15.3 (14.0-18.0) g/dl Hct 45.2 (42.0-52.0) % MCV 96.6 (80.0-98.0) fL MCH 32.7 (27.0-33.0) pg MCHC 33.8 (31.0-36.0) g/dl RDW 12.5 (11.0-16.0) % Plt Count 241 (160-400) X10*3/uL MPV 9.6 (9.4-12.4) fL Immature Gran % (Auto) 0.2 (0.0-0.4) % Neut % (Auto) 67.8 (45-73) % Lymph % (Auto) 23.6 (20-40) % [place] % (Auto) 6.1 (2-11) % Eos % (Auto) 1.9 (0-4) % Baso % (Auto) 0.4 (0-2) % Lymph # (Auto) 1.9 (1.2-4.9) X10*3/uL [place] # (Auto) 0.5 (0.1-1.2) X10*3/uL Eos # (Auto) 0.2 (0.0-0.4) X10*3/uL Baso # (Auto) 0.0 (0.0-0.2) X10*3/uL Abs Immat Gran (auto) 0.02 (0.00-0.03) X10*3/uL Absolute Neuts (auto) 5.5 (2.0-8.3) x10*3/uL Absolute Nucleated RBC 0.000 (0.0-0.012) X10*3/uL Nucleated RBC % (auto) 0.0 (0.0-0.2) /100WBC Sodium 140 (135-145) mmol/L Potassium 4.9 (3.3-5.1) mmol/L Chloride 102 (96-108) mmol/L Carbon Dioxide 30 H (22-29) mmol/L Anion Gap 13 (12-20) BUN 13 (9-16) mg/dL Creatinine 1.09 (0.5-1.4) mg/dL Estim Creat Clear Calc 88.7 Estimated GFR > 60 Random Glucose 93 (60-115) mg/dL Calcium 9.9 D (8.4-10.2) mg/dL Total Bilirubin 1.0 (0.0-1.0) mg/dL Direct Bilirubin 0.3 (0.0-0.5) mg/dL AST 36 (5-37) U/L ALT 63 H (0-40) U/L Alkaline Phosphatase 64 (39-117) U/L Total Protein 7.5 (6.5-8.0) g/dL Albumin 4.5 (3.5-5.0) g/dL Lipase 240 H (8-78) U/L Imaging Data Abdominal x-ray: Attestation: I personally reviewed and interpreted this imaging study as follows: Radiologist's impression: Normal radiographic examination of the abdomen. No evidence of bowel obstruction or pneumoperitoneum. ? Discharge Plan Discharge Clinical Impression: Pancreatitis, alcoholic, acute, Gastritis Patient Disposition: Home, Self-Care Instructions: Pancreatitis (ED) Prescriptions: New omeprazole magnesium [Prilosec OTC] 20 mg tablet,delayed release (DR/EC) 20 mg PO BID Qty: 30 0RF No Action Anbesol (benzocaine) 10 % gel 1 appl mucous membrane QID PRN (Reason: mouth irritation) Qty: 9 0RF cyclobenzaprine 10 mg tablet 10 mg PO TID PRN (Reason: muscle pain or spasm) Qty: 20 0RF ketorolac 10 mg tablet 10 mg PO TID 5 Days Qty: 15 0RF cyclobenzaprine 10 mg tablet 10 mg PO TID PRN (Reason: muscle spasm) Qty: 14 0RF Rx Instructions: Do not use before working with machinery or driving ibuprofen 600 mg tablet 600 mg PO TID PRN (Reason: pain) Qty: 14 0RF cyclobenzaprine 10 mg tablet 10 mg PO TID PRN (Reason: muscle spasm) Qty: 10 0RF ibuprofen 600 mg tablet 600 mg PO Q6H PRN (Reason: pain) Qty: 20 0RF Referrals: Olman Castillo MD [Physician] - Physician,Unknown J [Primary Care Provider] -
[2022-02-15] MEDS: Famotidine/PF 20 MG/2 ML VIAL IVPUSH (10:51)
[2022-02-15] MEDS: Magnesium Hydrox/Alum Hydrox 30 ML ORAL.SUSP PO (10:51)
[2022-02-15] MEDS: ondansetron HCL 4 MG/2 ML VIAL IVPUSH (10:51)
[2022-02-15] MEDS: 0.9 % Sodium Chloride 1,000 ML 999 ML IV (10:52)
[2022-02-15 10:59] LABS: MANUAL DIFF FLAG NO
[2022-02-15 11:03] LABS: Basophils Percent Auto 0.4 % (0-2); Eosinophils Absolute Auto 0.2 X10*3/uL (0.0-0.4); Eosinophils Percent Auto 1.9 % (0-4); Hematocrit 45.2 % (42.0-52.0); Hemoglobin 15.3 g/dl (14.0-18.0); Imm Gran Abs Auto 0.02 X10*3/uL (0.00-0.03); Imm Gran Pct Auto 0.2 % (0.0-0.4); Lymphocytes Absolute Auto 1.9 X10*3/uL (1.2-4.9); Lymphocytes Percent Auto 23.6 % (20-40); Mean Corpuscular HGB Conc 33.8 g/dl (31.0-36.0); Mean Corpuscular Hemoglobin 32.7 pg (27.0-33.0); Mean Corpuscular Volume 96.6 fL (80.0-98.0); Mean Platelet Volume 9.6 fL (9.4-12.4); Monocytes Absolute Auto 0.5 X10*3/uL (0.1-1.2); Monocytes Percent Auto 6.1 % (2-11); Neutrophils Absolute Auto 5.5 x10*3/uL (2.0-8.3); Neutrophils Percent Auto 67.8 % (45-73); Platelet Count 241 X10*3/uL (160-400); Red Blood Count 4.68 X10*6/uL (4.60-5.80); Red Cell Distribution Width 12.5 % (11.0-16.0); White Blood Count 8.1 X10*3/uL (4.8-10.8)
[2022-02-15 11:15] LABS: Alanine Aminotransferase 63 U/L (0-40); Albumin Level 4.5 g/dL (3.5-5.0); Alkaline Phosphatase 64 U/L (39-117); Anion Gap 13 (12-20); Aspartate Amino Transferase 36 U/L (5-37); Bilirubin Direct 0.3 mg/dL (0.0-0.5); Blood Urea Nitrogen 13 mg/dL (9-16); Calcium 9.9 mg/dL (8.4-10.2); Carbon Dioxide 30 mmol/L (22-29); Chloride 102 mmol/L (96-108); Creatinine Clr Calc Pharmacy 88.7; Estimated Glomerular Filt Rate > 60; Glucose Random 93 mg/dL (60-115); Lipase 240 U/L (8-78); Potassium 4.9 mmol/L (3.3-5.1); Sodium 140 mmol/L (135-145); Total Protein 7.5 g/dL (6.5-8.0)
[2022-02-15 12:31] VITALS: BP 118/67; PULSE 59; RESP 15; TEMP 36.9; O2SAT 100
--- NOTE | 2022-02-15 13:58 | MHC.RECOVSUP ---
? Reason for consult Recovery Support o Current location: ED12 o Identified substance use concern: Alcohol <del>-</del> <del>Overdose</del> <del>-</del> <del>Withdrawal</del> - Seeking ATS (detox) - Support ? Intervention: <del>o</del> <del>ATS</del> <del>bed</del> <del>search</del> <del>started/completed/in</del> <del>process</del> <del>o</del> <del>MAT</del> <del>started</del> <del>or</del> <del>to</del> <del>be</del> <del>started</del> o Community resources provided o Harm reduction discussion ? Plan: <del>o</del> <del>Referral</del> <del>to</del> <del>[facility]</del> <del>o</del> <del>Bed</del> <del>search</del> <del>in</del> <del>progress</del> <del>to</del> <del>o</del> <del>Follow</del> <del>up</del> <del>tomorrow</del> <del>o</del> <del>Patient</del> <del>awaiting</del> <del>crisis</del> <del>evaluation</del> o Patient to follow up with [facility] after discharge ? Additional information: Met with patient and we talked about recovery & Harm Reduction.. Shannan stated that he wants to go to a detox then a correction program 6 months or better... We talk about the process and what needs to be done... But patient concern is the side pain
== END 2022-02-15 14:19 | disposition home or self-care (01) ==
PROVIDERS: Emergency Provider Emergency Medicine
DX: K85.20 Alcohol induced acute pancreatitis without necrosis or infection (principal); K29.20 Alcoholic gastritis without bleeding; F10.10 Alcohol abuse, uncomplicated; Z87.11 Personal history of peptic ulcer disease
CPT/HCPCS: 36415; 74021; 80048; 80076; 83690; 85025; 99283; J2405

== ENCOUNTER 2022-03-10 08:12 | Emergency (ER) | payer OTHER, SELFPAY ==
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
[2022-03-10 08:44] VITALS: BP 104/61; PULSE 64; RESP 15; TEMP 36.7; O2SAT 97
[2022-03-10 08:46] VITALS: BMI 23.6
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
== END 2022-03-10 10:58 | disposition home or self-care (01) ==
PROVIDERS: Emergency Provider Emergency Medicine
DX: S59.912A Unspecified injury of left forearm, initial encounter (principal); Y33.XXXA Other specified events, undetermined intent, initial encounter; Y93.9 Activity, unspecified; Y92.9 Unspecified place or not applicable; Y99.9 Unspecified external cause status; F17.200 Nicotine dependence, unspecified, uncomplicated; Z71.6 Tobacco abuse counseling; Z79.899 Other long term (current) drug therapy
CPT/HCPCS: 73030; 73090; 99283

== ENCOUNTER 2022-05-04 22:08 | Emergency (ER) | payer OTHER, SELFPAY ==
[2022-05-04 22:23] VITALS: BP 144/90; PULSE 108; O2SAT 99; BMI 26.6
--- NOTE | 2022-05-04 22:34 | ED.ABDPAIN ---
HPI - Abdominal Pain General Chief Complaint: Abdominal Pain Stated Complaint: abd pain Time Seen by Provider: 05/04/22 22:17 Source: patient Mode of arrival: ambulatory Limitations: no limitations History of Present Illness HPI narrative: Patient with history of alcohol abuse with recurrent pancreatitis last episode was 2 months ago today patient came here for 3 days of upper abdominal pain with nausea and vomiting got worse today patient drinking for same duration no diarrhea no fever no chills Related Data Previous Rx's Medication Instructions Recorded cyclobenzaprine 10 mg tablet 10 mg PO TID PRN muscle pain or 09/21/21 spasm #20 tabs ketorolac 10 mg tablet 10 mg PO TID 5 days #15 tabs 09/21/21 cyclobenzaprine 10 mg tablet 10 mg PO TID PRN muscle spasm #14 12/03/21 tabs ibuprofen 600 mg tablet 600 mg PO TID PRN pain #14 tabs 12/03/21 cyclobenzaprine 10 mg tablet 10 mg PO TID PRN muscle spasm #10 12/27/21 tabs ibuprofen 600 mg tablet 600 mg PO Q6H PRN pain #20 tabs 12/27/21 benzocaine 10 % mucosal gel 1 appl mucous membrane QID PRN 02/08/22 (Anbesol (benzocaine)) mouth irritation #9 grams omeprazole magnesium 20 mg 20 mg PO BID #30 tabs 02/15/22 tablet,delayed release (Prilosec OTC) naproxen 500 mg tablet (Naprosyn) 500 mg PO BID #20 tabs 03/10/22 Allergies Allergy/AdvReac Type Severity Reaction Status Date / Time Penicillins [PCN] Allergy Mild RASH Verified 12/13/21 06:30 silver AdvReac Intermediate rash Verified 12/13/21 06:30 [From TEGADERM AG MESH] Review of Systems Review of Systems Yes all other systems are reviewed and are negative [facility] Past Medical History Medical History Anxiety Bipolar 1 disorder Contusion Depression Foot drop, right foot Heart murmur Schizophrenia Surgical History No pertinent past surgical history Social History Social History Alcohol intake: current Alcohol intake frequency: a few times a week Alcohol type: beer and hard liquor Patient Tobacco Use Status: Current everyday Tobacco user Substance Use Type: Marijuana Advance Directives: No Advance Directives Information Provided: No Physical Exam ED Vital Signs: BMI result Body Mass Index 26.6 Appearance: Alert. Oriented X3. In mild distress. Eyes: No pallor or icterus ENT: Pharynx normal. Oral Mucosa moist Neck: Normal inspection. Neck supple. CVS: Normal heart rate and rhythm. Pulses normal. Respiratory: No respiratory distress. Equal air entry bilateral, no wheezing/rales/rhonchi Abdomen: Soft, mid abdomen tenderness no guarding no rebound tenderness. Bowel sounds are present, no mass palpable, no CVA tenderness Skin: Skin warm and dry. Normal skin color. Normal skin turgor. Extremities: No lower extremity edema. No calf tenderness Neuro: Oriented X 3. No motor deficit. MDM - Abdominal Pain MDM Narrative Medical decision making narrative: [id number] patient eloped from the ER refused any lab work Lab Data Labs: Lab Results 05/04/22 Range/Units 23:33 COVID-19 (SURYA) Negative (Negative) COVID-19 Clin Com See Note Discharge Plan Discharge Clinical Impression: Abdominal pain Patient Disposition: Elopement Prescriptions: No Action Anbesol (benzocaine) 10 % gel 1 appl mucous membrane QID PRN (Reason: mouth irritation) Qty: 9 0RF omeprazole magnesium [Prilosec OTC] 20 mg tablet,delayed release (DR/EC) 20 mg PO BID Qty: 30 0RF cyclobenzaprine 10 mg tablet 10 mg PO TID PRN (Reason: muscle pain or spasm) Qty: 20 0RF ketorolac 10 mg tablet 10 mg PO TID 5 Days Qty: 15 0RF cyclobenzaprine 10 mg tablet 10 mg PO TID PRN (Reason: muscle spasm) Qty: 14 0RF Rx Instructions: Do not use before working with machinery or driving ibuprofen 600 mg tablet 600 mg PO TID PRN (Reason: pain) Qty: 14 0RF cyclobenzaprine 10 mg tablet 10 mg PO TID PRN (Reason: muscle spasm) Qty: 10 0RF ibuprofen 600 mg tablet 600 mg PO Q6H PRN (Reason: pain) Qty: 20 0RF naproxen [Naprosyn] 500 mg tablet 500 mg PO BID Qty: 20 0RF Discharge Date/Time: 05/05/22 00:21
[2022-05-05 00:03] LABS: COVID-19 Test Negative (Negative); IDNOW Serial# 55D5AD1C
--- NOTE | 2022-05-05 00:12 | PC.NURSE ---
Alex, since he arrived, has been resting in a hallway stretcher drinking a liter of Pepsi, despite being encouraged not to. He had to wait approximately one hour from the time of initial provider eval until I had the time to place an IV and obtain labs. At that time the pt expressed his frustration re: wait time and insisted that you need to understand my situation, i need to be out of here by 230 or 3. I informed Alex that I would not be able to stick to that schedule and offered to place an IV and administer ordered meds but he refused and left the ED at this time. Alex ambulated out independently and with steady gait. During his ER visit he remained alert, oriented x 3, ambulating independently throughout the department, respirations non-labored, continuously taking PO Pepsi.
== END 2022-05-05 00:21 | disposition left against medical advice (07) ==
PROVIDERS: Emergency Provider Internal Medicine
DX: R10.10 Upper abdominal pain, unspecified (principal); Z20.822 Contact with and (suspected) exposure to COVID-19; R11.0 Nausea; I10 Essential (primary) hypertension; F17.200 Nicotine dependence, unspecified, uncomplicated; F12.90 Cannabis use, unspecified, uncomplicated
CPT/HCPCS: 87635; 96361; 96374; 96375; 99281; 99284

== ENCOUNTER 2022-05-17 07:47 | Emergency (ER) | payer OTHER, SELFPAY ==
--- NOTE | ~2022-05-17 | XR_ITS ---
EXAMINATION: XR CHEST CLINICAL INFORMATION: Rib injury COMPARISON: Previous chest x-ray January and August [address] September 2021 TECHNIQUE: 2 views of the chest were obtained. FINDINGS: No significant abnormality is noted involving the heart, lungs, mediastinum, bony thorax or soft tissues. XR/XR chest 2V IMPRESSION: Unremarkable examination.
[2022-05-17 08:20] VITALS: BP 115/62; PULSE 73; RESP 18; TEMP 36.9; O2SAT 98; BMI 22.8
--- NOTE | 2022-05-17 09:27 | ECG_ITS ---
Test Reason : cp Blood Pressure : / mmHG Vent. Rate : 051 BPM Atrial Rate : 051 BPM P-R Int : 198 ms QRS Dur : 070 ms QT Int : 394 ms P-R-T Axes : 051 055 033 degrees QTc Int : 363 ms Sinus bradycardia Otherwise normal ECG When compared with ECG of 16-SEP-2021 04:57, No significant change was found Referred By: Alicia Dunn Electronically Signed By:Davonte Garcia
--- NOTE | 2022-05-17 09:30 | ED_ITS ---
HPI - General Adult General Chief complaint: General Medical Stated complaint: Fall Time Seen by Provider: 05/17/22 09:19 Source: patient Mode of arrival: ambulatory History of Present Illness HPI narrative: 37-year-old male with past medical history of anxiety, bipolar, depression, schizophrenia, presenting to the ED complaining of bilateral rib pain s/p mechanical slip and fall in shower 4-5 days ago. Reports falling on bilateral ribs, denies head trauma or LOC. reports pain worse with movement and deep breathing. Denies hematuria, dysuria. has not been taking anything for pain. Denies taking AC Onset (ago): day(s) Related Data Previous Rx's Medication Instructions Recorded cyclobenzaprine 10 mg tablet 10 mg PO TID PRN muscle pain or 09/21/21 spasm #20 tabs ketorolac 10 mg tablet 10 mg PO TID 5 days #15 tabs 09/21/21 cyclobenzaprine 10 mg tablet 10 mg PO TID PRN muscle spasm #14 12/03/21 tabs ibuprofen 600 mg tablet 600 mg PO TID PRN pain #14 tabs 12/03/21 cyclobenzaprine 10 mg tablet 10 mg PO TID PRN muscle spasm #10 12/27/21 tabs ibuprofen 600 mg tablet 600 mg PO Q6H PRN pain #20 tabs 12/27/21 benzocaine 10 % mucosal gel 1 appl mucous membrane QID PRN 02/08/22 (Anbesol (benzocaine)) mouth irritation #9 grams omeprazole magnesium 20 mg 20 mg PO BID #30 tabs 02/15/22 tablet,delayed release (Prilosec OTC) naproxen 500 mg tablet (Naprosyn) 500 mg PO BID #20 tabs 03/10/22 acetaminophen 500 mg tablet 500 mg PO Q6H PRN fever or pain 05/17/22 (Tylenol Extra Strength) #14 tabs lidocaine 5 % topical patch 1 patch topical DAILY PRN pain #30 05/17/22 (Lidoderm) ea naproxen 500 mg tablet 500 mg PO BID PRN pain 10 days #20 05/17/22 tabs Allergies Allergy/AdvReac Type Severity Reaction Status Date / Time Penicillins [PCN] Allergy Mild RASH Verified 12/13/21 06:30 silver AdvReac Intermediate rash Verified 12/13/21 06:30 [From TEGADERM AG MESH] Review of Systems Review of Systems: Constitutional: No Fever, No Chills ENT/Mouth: No Ear Pain, No Nasal Congestion, No Sinus Pain, No Swallowing Difficulty Cardiovascular: + Chest wall Pain, +mild SOB Respiratory: No Cough, No Sputum, No Wheezing Gastrointestinal: No Nausea, No Vomiting, No Diarrhea, No Constipation, No Abdominal pain Genitourinary: No Dysuria, No Urinary Frequency, No Hematuria, No Urinary Incontinence/retention, No Urgency, No Flank Pain Musculoskeletal: No joint pain, No Myalgias, No Joint Swelling Skin: No Skin Lesions, No rash Neuro: No Weakness, No Numbness, No Paresthesias Yes all other systems are reviewed and are negative Constitutional: Constitutional: Reports as per [facility] Past Medical History Attestation statement: The following information was validated with the patient. Medical History Anxiety Bipolar 1 disorder Contusion Depression Foot drop, right foot Heart murmur Schizophrenia Surgical History No pertinent past surgical history Social History Social History Alcohol intake: current Alcohol intake frequency: a few times a week Alcohol type: beer and hard liquor Patient Tobacco Use Status: Current everyday Tobacco user Substance Use Type: Marijuana Advance Directives: No Advance Directives Information Provided: Yes Physical Exam ED Vital Signs: Vital Signs - 24 hr 05/17/22 08:20 Temperature 98.5 F Pulse Rate 73 Respiratory Rate 18 Blood Pressure 115/62 Pulse Oximetry 98 Oxygen Delivery Method Room Air BMI result Body Mass Index 22.8 Const General: cooperative, healthy appearing and no acute distress Orientation/consciousness: patient oriented x3 Limitations: no limitations HENMT Head: Yes normal to inspection and Yes atraumatic Ears: hearing grossly normal bilaterally General nose exam: Normal external nose present Face and sinus: Yes normal facial exam Eyes General: appearance normal, both eyes and all related structures EOM: EOMs intact bilaterally Neck Neck: Yes normal visual inspection and Yes no meningeal signs Chest Other: + healing abrasion noted to right posterior lateral ribs with tenderness to palpation. + tenderness to palpation to left posterior lateral ribs No ecchymosis/erythema or crepitus. No flail chest Chest palpation & inspection: no crepitus and tenderness Resp Effort & Inspection: normal respiratory effort and no respiratory distress Auscultation: clear to auscultation bilaterally, no crackles, no rales, no rhonchi and no wheezes Cardio Rate: regular rate Heart sounds: S1 normal heart sound present and S2 normal heart sound present GI Inspection: Yes normal to inspection Palpation (GI): Soft to palpation, nontender, no guarding and not rigid General: Yes no CVA tenderness Back/Spine/Pelvis Other: No midline thoracic/lumbar spinous tenderness/step-off or deformity Back: no CVA tenderness Skin Rashes: no rashes Wounds: no wounds Neuro General: patient oriented x3, tone normal and no meningeal signs Gait exam (Neuro): Normal gait present Extrem General: Yes normal to inspection Course Course Course Narrative: XR chest 2V IMPRESSION: Unremarkable examination. -EKG nonischemic Medical Decision Making MDM Narrative Medical decision making narrative: 37-year-old male with past medical history of anxiety, bipolar, depression, schizophrenia, presenting to the ED complaining of bilateral rib pain s/p mechanical slip and fall in shower 4-5 days ago. On exam vital signs stable, NAD, nontoxic appearing, physical exam as above. Concern for rib fracture versus Contusion. Low concern for internal injury/bleeding Plan: X-ray. Patient requesting EKG Medical Records Medical records reviewed: Yes I reviewed the patient's medical records. Lab Data Lab results reviewed: Yes I reviewed the patient's lab results. ECG Data Attestation: I personally reviewed and interpreted this ECG as follows: Interpretation: EKG sinus bradycardia rate of 51. AL interval 198. QTC 363. No STEMI. Discharge Plan Discharge Clinical Impression: Bilateral contusion of ribs Patient Disposition: Home, Self-Care Instructions: Rib Contusion (ED) Additional Instructions: Your x-ray does not show any fracture. You have a rib contusion/bruise. Ice. Naproxen as an anti-inflammatory/pain medication, take with food. In addition take Tylenol. Also apply Lidoderm patches. If symptoms persist or worsen, pain becomes unbearable return to the emergency department Prescriptions: New acetaminophen [Tylenol Extra Strength] 500 mg tablet 500 mg PO Q6H PRN (Reason: fever or pain) Qty: 14 0RF lidocaine [Lidoderm] 5 % adhesive patch,medicated 1 patch topical DAILY MDD remove after 12 hours PRN (Reason: pain) Qty: 30 0RF Rx Instructions: leave on most painful area for up to 12 hrs naproxen 500 mg tablet 500 mg PO BID PRN (Reason: pain) 10 Days Qty: 20 0RF No Action Anbesol (benzocaine) 10 % gel 1 appl mucous membrane QID PRN (Reason: mouth irritation) Qty: 9 0RF omeprazole magnesium [Prilosec OTC] 20 mg tablet,delayed release (DR/EC) 20 mg PO BID Qty: 30 0RF cyclobenzaprine 10 mg tablet 10 mg PO TID PRN (Reason: muscle pain or spasm) Qty: 20 0RF ketorolac 10 mg tablet 10 mg PO TID 5 Days Qty: 15 0RF cyclobenzaprine 10 mg tablet 10 mg PO TID PRN (Reason: muscle spasm) Qty: 14 0RF Rx Instructions: Do not use before working with machinery or driving ibuprofen 600 mg tablet 600 mg PO TID PRN (Reason: pain) Qty: 14 0RF cyclobenzaprine 10 mg tablet 10 mg PO TID PRN (Reason: muscle spasm) Qty: 10 0RF ibuprofen 600 mg tablet 600 mg PO Q6H PRN (Reason: pain) Qty: 20 0RF naproxen [Naprosyn] 500 mg tablet 500 mg PO BID Qty: 20 0RF Referrals: Physician,Unknown J [Primary Care Provider] -
[2022-05-17] MEDS: Ketorolac Tromethamine 30 MG/ML VIAL IM (10:15)
[2022-05-17] MEDS: Lidocaine 4 % Patch ADH..PATCH 1 PATCH TRANSDERMA (10:16)
== END 2022-05-17 10:34 | disposition home or self-care (01) ==
PROVIDERS: Emergency Provider Emergency Medicine
DX: S20.213A Contusion of bilateral front wall of thorax, initial encounter (principal); R07.89 Other chest pain; F31.9 Bipolar disorder, unspecified; W18.2XXA Fall in (into) shower or empty bathtub, initial encounter; Y93.E1 Activity, personal bathing and showering; Y92.002 Bathroom of unspecified non-institutional (private) residence as the place of occurrence of the external cause; Y99.9 Unspecified external cause status; Z79.899 Other long term (current) drug therapy
CPT/HCPCS: 71046; 93005; 96372; 99283; 99284; J1885

== ENCOUNTER 2022-06-15 05:44 | Emergency (ER) | payer OTHER, SELFPAY ==
[2022-06-15 06:05] VITALS: BP 121/61; PULSE 69; RESP 18; TEMP 36.6; O2SAT 100; BMI 19.8
== END 2022-06-15 07:30 | disposition left against medical advice (07) ==
PROVIDERS: Emergency Provider Emergency Medicine
DX: F19.10 Other psychoactive substance abuse, uncomplicated (principal)
CPT/HCPCS: 99281

== ENCOUNTER 2022-06-16 18:38 | Emergency (ER) | payer OTHER, SELFPAY | END 2022-06-16 19:45 | disposition left against medical advice (07) | PROVIDERS: Emergency Provider Emergency Medicine | DX: Z04.9 Encounter for examination and observation for unspecified reason (principal) ==

== ENCOUNTER 2022-06-17 02:35 | Emergency (ER) | payer OTHER, SELFPAY ==
--- NOTE | ~2022-06-17 | XR_ITS ---
EXAMINATION: XR CHEST CLINICAL INFORMATION: Fall with rib pain COMPARISON: 05/17/2022 TECHNIQUE: 2 views of the chest were obtained. FINDINGS: The lungs are well expanded. There is no focal consolidation, edema, or effusion. No pneumothorax. The cardiomediastinal silhouette is within normal limits. No acute osseous abnormality. Rounded density overlies the proximal right humeral diaphysis. This is likely external to the patient. XR/XR chest 2V IMPRESSION: Clear lungs. No displaced fractures are seen.
--- NOTE | ~2022-06-17 | XR_ITS ---
EXAMINATION: XR SCAPULA, LEFT CLINICAL INFORMATION: Fall with pain COMPARISON: None TECHNIQUE: AP and scapular Y views of the left scapula. FINDINGS: No fracture or cortical disruption. Appropriate alignment at the glenohumeral and acromioclavicular joints. The visualized lung is clear. The visualized ribs are intact. XR/XR scapula LT IMPRESSION: No fracture or malalignment.
[2022-06-17 02:44] VITALS: BP 107/52; PULSE 63; RESP 15; TEMP 35.7; O2SAT 98; BMI 19.8
--- NOTE | 2022-06-17 03:20 | ED.GENADULT ---
HPI - General Adult General Chief complaint: Back Pain/Injury Stated complaint: back & shoulder pain Time Seen by Provider: 06/17/22 03:17 Source: patient Limitations: no limitations History of Present Illness HPI narrative: This is a 37-year-old male with a history of schizophrenia, substance abuse, who states that he was ?under the influence? a few days ago and had a fall, injuring his left shoulder blade area and right posterior chest. Patient denies any shortness of breath. Has had ongoing pain to the area. He denies any abdominal pain. He denies any head injury, neck pain. He has not had any nausea or vomiting. Related Data Previous Rx's Medication Instructions Recorded cyclobenzaprine 10 mg tablet 10 mg PO TID PRN muscle pain or 09/21/21 spasm #20 tabs ketorolac 10 mg tablet 10 mg PO TID 5 days #15 tabs 09/21/21 cyclobenzaprine 10 mg tablet 10 mg PO TID PRN muscle spasm #14 12/03/21 tabs ibuprofen 600 mg tablet 600 mg PO TID PRN pain #14 tabs 12/03/21 cyclobenzaprine 10 mg tablet 10 mg PO TID PRN muscle spasm #10 12/27/21 tabs ibuprofen 600 mg tablet 600 mg PO Q6H PRN pain #20 tabs 12/27/21 benzocaine 10 % mucosal gel 1 appl mucous membrane QID PRN 02/08/22 (Anbesol (benzocaine)) mouth irritation #9 grams omeprazole magnesium 20 mg 20 mg PO BID #30 tabs 02/15/22 tablet,delayed release (Prilosec OTC) naproxen 500 mg tablet (Naprosyn) 500 mg PO BID #20 tabs 03/10/22 acetaminophen 500 mg tablet 500 mg PO Q6H PRN fever or pain 05/17/22 (Tylenol Extra Strength) #14 tabs lidocaine 5 % topical patch 1 patch topical DAILY PRN pain #30 05/17/22 (Lidoderm) ea naproxen 500 mg tablet 500 mg PO BID PRN pain 10 days #20 05/17/22 tabs ibuprofen 600 mg tablet 600 mg PO Q6H PRN pain #30 tabs 06/17/22 Allergies Allergy/AdvReac Type Severity Reaction Status Date / Time Penicillins [PCN] Allergy Mild RASH Verified 12/13/21 06:30 silver AdvReac Intermediate rash Verified 12/13/21 06:30 [From TEGADERM AG MESH] Review of Systems Review of Systems: Yes all other systems are reviewed and are negative Constitutional: Constitutional: Reports as per HPI and Denies fever(s) Eyes: Eyes: Reports as per HPI and Reports no additional eye complaints ENT: Reports system reviewed and no additional complaints, except as documented, Reports as per HPI, Denies nasal congestion, Denies nasal discharge and Denies sore throat Cardiovascular: Cardiovascular: Reports as per HPI, Denies chest pain and Denies dyspnea Respiratory: Respiratory: Reports as per HPI, Denies cough and Denies dyspnea Gastrointestinal: Gastrointestinal: Reports as per HPI, Denies abdominal pain, Denies diarrhea and Denies vomiting Genitourinary: Genitourinary: Reports as per HPI, Denies hematuria, Denies dysuria and Denies urinary frequency Musculoskeletal: Musculoskeletal: Reports as per HPI and Denies numbness Integumentary/Breasts: Skin/Breast: Reports as per HPI and Denies rash Comments: Abrasions to back Neurologic: Reports as per HPI, Denies focal weakness and Denies numbness Psychiatric: Psychiatric: Reports no additional psychiatric complaints and Reports as per HPI Endocrine: Endocrine: Reports no additional endocrine complaints and Reports as per HPI Hematologic/Lymphatic: Hematologic/Lymphatic: Reports no additional hematologic/lymphatic complaints, Reports as per HPI and Reports other (No peripheral edema) [facility] Past Medical History Medical History Anxiety Bipolar 1 disorder Contusion Depression Foot drop, right foot Heart murmur Schizophrenia Surgical History No pertinent past surgical history Social History Social History Alcohol intake: current Alcohol intake frequency: a few times a week Alcohol type: beer and hard liquor Patient Tobacco Use Status: Current everyday Tobacco user Substance Use Type: Marijuana Advance Directives: No Physical Exam ED Vital Signs: Vital Signs - 24 hr 06/17/22 02:44 Temperature 96.2 F L Pulse Rate 63 Respiratory Rate 15 Blood Pressure 107/52 L Pulse Oximetry 98 Oxygen Delivery Method Room Air BMI result Body Mass Index 19.8 Const General: no acute distress Orientation/consciousness: patient oriented x3 [facility] Head: Yes normal to inspection General nose exam: Normal external nose present Mouth: moist mucous membranes Throat: Yes posterior oropharynx normal, Yes tonsils normal and Yes uvula midline Eyes Eyelids: Yes eyelids normal Conjunctivae: conjunctivae normal Pupils: Equal, round and reactive pupils present Neck Neck: Yes supple Resp Effort & Inspection: normal respiratory effort Auscultation: clear to auscultation bilaterally Cardio Rate: regular rate Rhythm: regular rhythm Heart sounds: S1 normal heart sound present, S2 normal heart sound present, no gallops, no murmurs and no rubs GI Inspection: No distended Palpation (GI): Soft to palpation and nontender Auscultation: normal bowel sounds Back/Spine/Pelvis Other: Superficial abrasions left posterior shoulder area, right posterior mid chest. Tenderness over the left scapula. Patient does however seem to take his shirt off pulling off over his head without difficulty using both hands. Thoracic/Lumbar Spine: thoracic and lumbar spine normal to inspection Skin General skin exam: other (Warm and dry) Neuro General: patient oriented x3 and CN's II-XI intact bilaterally Cranial nerves: Yes Equal, round and reactive pupils present Extrem General: Yes no pedal edema Psych Affect: normal affect Attitude: cooperative Medical Decision Making MDM Narrative Medical decision making narrative: Patient with a reported fall a few days ago, does have some healing abrasions, had tenderness especially around his left scapula but a full range of motion of his shoulders. X-ray of the left scapula, as well as of the chest two views, were negative. Patient take ibuprofen for pain. Imaging Data Chest x-ray: Radiologist's impression: IMPRESSION: Clear lungs. No displaced fractures are seen. Left scapula x-ray: Radiologist's impression: No fracture or malalignment Discharge Plan Discharge Clinical Impression: Contusion of upper back Instructions: Contusion in Adults (ED) Additional Instructions: Use ibuprofen for pain. You can also use acetaminophen. Follow up with your primary care physician Prescriptions: New ibuprofen 600 mg tablet 600 mg PO Q6H PRN (Reason: pain) Qty: 30 0RF No Action Anbesol (benzocaine) 10 % gel 1 appl mucous membrane QID PRN (Reason: mouth irritation) Qty: 9 0RF omeprazole magnesium [Prilosec OTC] 20 mg tablet,delayed release (DR/EC) 20 mg PO BID Qty: 30 0RF acetaminophen [Tylenol Extra Strength] 500 mg tablet 500 mg PO Q6H PRN (Reason: fever or pain) Qty: 14 0RF lidocaine [Lidoderm] 5 % adhesive patch,medicated 1 patch topical DAILY MDD remove after 12 hours PRN (Reason: pain) Qty: 30 0RF Rx Instructions: leave on most painful area for up to 12 hrs naproxen 500 mg tablet 500 mg PO BID PRN (Reason: pain) 10 Days Qty: 20 0RF cyclobenzaprine 10 mg tablet 10 mg PO TID PRN (Reason: muscle pain or spasm) Qty: 20 0RF ketorolac 10 mg tablet 10 mg PO TID 5 Days Qty: 15 0RF cyclobenzaprine 10 mg tablet 10 mg PO TID PRN (Reason: muscle spasm) Qty: 14 0RF Rx Instructions: Do not use before working with machinery or driving ibuprofen 600 mg tablet 600 mg PO TID PRN (Reason: pain) Qty: 14 0RF cyclobenzaprine 10 mg tablet 10 mg PO TID PRN (Reason: muscle spasm) Qty: 10 0RF ibuprofen 600 mg tablet 600 mg PO Q6H PRN (Reason: pain) Qty: 20 0RF naproxen [Naprosyn] 500 mg tablet 500 mg PO BID Qty: 20 0RF
[2022-06-17] MEDS: Ibuprofen 600 MG TABLET PO (03:55)
== END 2022-06-17 04:27 | disposition home or self-care (01) ==
PROVIDERS: Emergency Provider Emergency Medicine
DX: S20.222A Contusion of left back wall of thorax, initial encounter (principal); W19.XXXA Unspecified fall, initial encounter; F17.200 Nicotine dependence, unspecified, uncomplicated; F12.90 Cannabis use, unspecified, uncomplicated; F19.10 Other psychoactive substance abuse, uncomplicated; Y93.9 Activity, unspecified; Y92.9 Unspecified place or not applicable; Y99.9 Unspecified external cause status
CPT/HCPCS: 71046; 73010; 99283; 99284

== ENCOUNTER 2022-07-03 05:48 | Emergency (ER) | payer OTHER, SELFPAY ==
[2022-07-03 06:24] VITALS: BP 136/85; PULSE 86; RESP 16; TEMP 36.8; O2SAT 99; BMI 22.8
[2022-07-03 06:30] VITALS: BP 105/56; PULSE 65; RESP 18; TEMP 36.8; O2SAT 98
--- NOTE | 2022-07-03 06:38 | ED_ITS ---
HPI - Back Pain/Injury General Chief Complaint: Back Pain/Injury Stated Complaint: pain in back and side Time Seen by Provider: 07/03/22 06:38 Source: patient Mode of arrival: ambulatory Limitations: no limitations History of Present Illness HPI Narrative: no new injury here stating he needs refill of flexeril which helps his chronic pain no other new complaints MD elicited complaint: back pain Pertinent past history: prior back pain Onset (ago): year(s) Timing: intermittent Severity: moderate Quality: dull and aching Location: lumbar spine Radiation: none Exacerbating factors: movement Relieving factors: medication Context: unknown Associated symptoms: denies other symptoms Work related injury: No Related Data Previous Rx's Medication Instructions Recorded cyclobenzaprine 10 mg tablet 10 mg PO TID PRN muscle pain or 09/21/21 spasm #20 tabs ketorolac 10 mg tablet 10 mg PO TID 5 days #15 tabs 09/21/21 cyclobenzaprine 10 mg tablet 10 mg PO TID PRN muscle spasm #14 12/03/21 tabs ibuprofen 600 mg tablet 600 mg PO TID PRN pain #14 tabs 12/03/21 cyclobenzaprine 10 mg tablet 10 mg PO TID PRN muscle spasm #10 12/27/21 tabs ibuprofen 600 mg tablet 600 mg PO Q6H PRN pain #20 tabs 12/27/21 benzocaine 10 % mucosal gel 1 appl mucous membrane QID PRN 02/08/22 (Anbesol (benzocaine)) mouth irritation #9 grams omeprazole magnesium 20 mg 20 mg PO BID #30 tabs 02/15/22 tablet,delayed release (Prilosec OTC) naproxen 500 mg tablet (Naprosyn) 500 mg PO BID #20 tabs 03/10/22 acetaminophen 500 mg tablet 500 mg PO Q6H PRN fever or pain 05/17/22 (Tylenol Extra Strength) #14 tabs lidocaine 5 % topical patch 1 patch topical DAILY PRN pain #30 05/17/22 (Lidoderm) ea naproxen 500 mg tablet 500 mg PO BID PRN pain 10 days #20 05/17/22 tabs ibuprofen 600 mg tablet 600 mg PO Q6H PRN pain #30 tabs 06/17/22 cyclobenzaprine 10 mg tablet 10 mg PO TID PRN muscle spasm #14 07/03/22 tabs Allergies Allergy/AdvReac Type Severity Reaction Status Date / Time Penicillins [PCN] Allergy Mild RASH Verified 12/13/21 06:30 silver AdvReac Intermediate rash Verified 12/13/21 06:30 [From TEGADESDI-Solution AG MESH] Review of Systems Review of Systems: Constitutional : No Weight loss, No Fever, No Chills, ENT/Mouth : No Hearing loss, No Ear Pain, No Nasal Congestion, No Sinus Pain, No Hoarseness, No sore throat, No Rhinorrhea, No Swallowing Difficulty Cardiovascular : No Chest Pain, No SOB Respiratory : No Cough, No Dyspnea Gastrointestinal : No Nausea, No Vomiting, No Diarrhea, No abdominal Pain, No Hematochezia, No Melena Genitourinary : No Dysuria, No Urinary Frequency, No Hematuria, No Urinary Incontinence, Musculoskeletal : positive back pain Skin : No Skin Lesions, No rash Neuro : No Weakness, No Numbness, No Paresthesias, no loss of bowel or bladder incontinence, no saddle anesthesia [facility] Past Medical History Attestation statement: The following information was validated with the patient. Medical History Anxiety Bipolar 1 disorder Contusion Depression Foot drop, right foot Heart murmur Schizophrenia Surgical History No pertinent past surgical history Social History Social History Alcohol intake: current Alcohol intake frequency: a few times a week Alcohol type: beer and hard liquor Patient Tobacco Use Status: Current everyday Tobacco user Substance Use Type: Marijuana Physical Exam Vital Signs: Vital Signs: Last Vital Signs Temp 98.2 F 07/03/22 06:30 Pulse 65 07/03/22 06:30 Resp 18 07/03/22 06:30 BP 105/56 L 07/03/22 06:30 Pulse Ox 98 07/03/22 06:30 O2 Del Method 07/03/22 06:30 BMI result Body Mass Index 22.8 Appearance: Alert. Oriented X3. No acute distress. Eyes: Pupils equal, round and reactive to light. ENT: Pharynx normal. Neck: Normal inspection. Neck supple. CVS: Normal heart rate and rhythm. Pulses normal. Respiratory: No respiratory distress. Breath sounds normal. Abdomen: Soft and non-tender. Back: ttp along lower lumbar area patient is moving fine on stretcher Skin: Skin warm and dry. Normal skin color. Normal skin turgor. Extremities: No lower extremity edema. No calf ttp Neuro: Oriented X 3. No motor deficit. No sensory deficit. NV intact distally MDM - Back Pain/Injury MDM Narrative Medical decision making narrative: 37 yo male with hx of bipolar, schizophrenia, chronic back pain here with c/o back pain no new injuries - he is NV intact, no b/b incontinence, no saddle anesthesia. No signs of CE syndrome. Will refill his flexeril and refer to PCP if not better. Discharge Plan Discharge Clinical Impression: Chronic back pain Qualifiers: Back pain location: low back pain Back pain laterality: bilateral Sciatica presence: without sciatica Qualified Code(s): M54.50 - Low back pain, unspecified Patient Disposition: Home, Self-Care Instructions: Chronic Back Pain (DC) Additional Instructions: return to ED for any worsening symptoms or concerns follow up with your doctor if not better in 3 days Prescriptions: New cyclobenzaprine 10 mg tablet 10 mg PO TID PRN (Reason: muscle spasm) Qty: 14 0RF No Action Anbesol (benzocaine) 10 % gel 1 appl mucous membrane QID PRN (Reason: mouth irritation) Qty: 9 0RF omeprazole magnesium [Prilosec OTC] 20 mg tablet,delayed release (DR/EC) 20 mg PO BID Qty: 30 0RF acetaminophen [Tylenol Extra Strength] 500 mg tablet 500 mg PO Q6H PRN (Reason: fever or pain) Qty: 14 0RF lidocaine [Lidoderm] 5 % adhesive patch,medicated 1 patch topical DAILY MDD remove after 12 hours PRN (Reason: pain) Qty: 30 0RF Rx Instructions: leave on most painful area for up to 12 hrs naproxen 500 mg tablet 500 mg PO BID PRN (Reason: pain) 10 Days Qty: 20 0RF ibuprofen 600 mg tablet 600 mg PO Q6H PRN (Reason: pain) Qty: 30 0RF cyclobenzaprine 10 mg tablet 10 mg PO TID PRN (Reason: muscle pain or spasm) Qty: 20 0RF ketorolac 10 mg tablet 10 mg PO TID 5 Days Qty: 15 0RF cyclobenzaprine 10 mg tablet 10 mg PO TID PRN (Reason: muscle spasm) Qty: 14 0RF Rx Instructions: Do not use before working with machinery or driving ibuprofen 600 mg tablet 600 mg PO TID PRN (Reason: pain) Qty: 14 0RF cyclobenzaprine 10 mg tablet 10 mg PO TID PRN (Reason: muscle spasm) Qty: 10 0RF ibuprofen 600 mg tablet 600 mg PO Q6H PRN (Reason: pain) Qty: 20 0RF naproxen [Naprosyn] 500 mg tablet 500 mg PO BID Qty: 20 0RF Referrals: Physician,Unknown J [Primary Care Provider] - 3 days
[2022-07-03] MEDS: Cyclobenzaprine HCl 10 MG TABLET PO (07:00)
== END 2022-07-03 07:11 | disposition home or self-care (01) ==
PROVIDERS: Emergency Provider Emergency Medicine
DX: M54.50 Low back pain, unspecified (principal); Z79.899 Other long term (current) drug therapy
CPT/HCPCS: 99283

== ENCOUNTER 2022-07-13 05:36 | Emergency (ER) | payer OTHER, SELFPAY ==
[2022-07-13 05:58] VITALS: BP 113/58; PULSE 74; RESP 17; TEMP 36.8; O2SAT 99; BMI 22.8
== END 2022-07-13 08:17 | disposition left against medical advice (07) ==
LOC: HO.ED 08:09
PROVIDERS: Emergency Provider Emergency Medicine
DX: M79.672 Pain in left foot (principal); R22.42 Localized swelling, mass and lump, left lower limb; I10 Essential (primary) hypertension; F17.200 Nicotine dependence, unspecified, uncomplicated; F12.90 Cannabis use, unspecified, uncomplicated
CPT/HCPCS: 99281

== ENCOUNTER 2022-07-22 19:39 | Emergency (ER) | payer OTHER, SELFPAY ==
[2022-07-22 20:22] VITALS: BP 140/95; PULSE 82; RESP 18; TEMP 38.1; O2SAT 96; BMI 20.8
== END 2022-07-22 21:21 | disposition left against medical advice (07) ==
LOC: HO.ED 21:13
PROVIDERS: Emergency Provider Emergency Medicine
DX: M79.605 Pain in left leg (principal); M79.672 Pain in left foot; F19.10 Other psychoactive substance abuse, uncomplicated
CPT/HCPCS: 99281

== ENCOUNTER 2022-07-23 04:26 | Emergency (ER) | payer OTHER, SELFPAY ==
[2022-07-23 04:41] VITALS: BP 135/81; PULSE 66; RESP 16; TEMP 36.6; O2SAT 97; BMI 20.8
== END 2022-07-23 06:02 | disposition left against medical advice (07) ==
PROVIDERS: Emergency Provider Emergency Medicine
DX: M79.672 Pain in left foot (principal)
CPT/HCPCS: 99281

== ENCOUNTER 2022-08-03 21:24 | Emergency (ER) | payer OTHER, SELFPAY ==
--- NOTE | ~2022-08-03 | XR_ITS ---
EXAMINATION: XR FOOT, LEFT CLINICAL INFORMATION: Foot pain COMPARISON: None TECHNIQUE: AP, lateral, and oblique views of the left foot. FINDINGS: No acute fracture or dislocation. Joint spaces are maintained. Punctate 2 mm radiodense linear object overlying the plantar soft tissues of the foot could reflect a tiny radiopaque foreign body if any history of trauma to the area. No joint effusion. XR/XR foot LT min 3V IMPRESSION: Punctate 2 mm radiodense linear object overlying the plantar soft tissues of the foot could reflect a tiny radiopaque foreign body if any history of trauma to the area.
[2022-08-03 21:48] VITALS: BP 139/94; PULSE 102; RESP 20; TEMP 37.1; O2SAT 96
--- NOTE | 2022-08-03 22:17 | ED_ITS ---
HPI - Extremity Problem General Chief complaint: Extremity Injury, Lower Stated complaint: foot pain Time Seen by Provider: 08/03/22 22:17 Source: patient Mode of arrival: ambulatory Limitations: no limitations History of Present Illness HPI Narrative: Patient presents emergency department for evaluation of left foot pain. Pain is present to the midfoot, in his cell with prolonged walking. He states he has had this pain for approximately 2 years, it typically gets worse when he overdoes it as far as walking. He states he has been evaluated before for this in the past, and has had a negative x-rays. He states he is unable to take ibuprofen, he thinks he might develop a rash with this. Has not taken any Tylenol for this. Denies any numbness or tingling to the foot. Denies any redness, swelling, warmth, wounds, lesions, rashes. Denies any fall, or traumatic injury. Related Data Previous Rx's Medication Instructions Recorded cyclobenzaprine 10 mg tablet 10 mg PO TID PRN muscle pain or 09/21/21 spasm #20 tabs ketorolac 10 mg tablet 10 mg PO TID 5 days #15 tabs 09/21/21 cyclobenzaprine 10 mg tablet 10 mg PO TID PRN muscle spasm #14 12/03/21 tabs ibuprofen 600 mg tablet 600 mg PO TID PRN pain #14 tabs 12/03/21 cyclobenzaprine 10 mg tablet 10 mg PO TID PRN muscle spasm #10 12/27/21 tabs ibuprofen 600 mg tablet 600 mg PO Q6H PRN pain #20 tabs 12/27/21 benzocaine 10 % mucosal gel 1 appl mucous membrane QID PRN 02/08/22 (Anbesol (benzocaine)) mouth irritation #9 grams omeprazole magnesium 20 mg 20 mg PO BID #30 tabs 02/15/22 tablet,delayed release (Prilosec OTC) naproxen 500 mg tablet (Naprosyn) 500 mg PO BID #20 tabs 03/10/22 acetaminophen 500 mg tablet 500 mg PO Q6H PRN fever or pain 05/17/22 (Tylenol Extra Strength) #14 tabs lidocaine 5 % topical patch 1 patch topical DAILY PRN pain #30 05/17/22 (Lidoderm) ea naproxen 500 mg tablet 500 mg PO BID PRN pain 10 days #20 05/17/22 tabs ibuprofen 600 mg tablet 600 mg PO Q6H PRN pain #30 tabs 06/17/22 cyclobenzaprine 10 mg tablet 10 mg PO TID PRN muscle spasm #14 07/03/22 tabs Allergies Allergy/AdvReac Type Severity Reaction Status Date / Time Penicillins [PCN] Allergy Mild RASH Verified 08/03/22 21:47 silver AdvReac Intermediate rash Verified 12/13/21 06:30 [From TEGADERM AG MESH] Review of Systems Review of Systems: Musculoskeletal: positive foot pain Yes all other systems are reviewed and are negative [facility] Past Medical History Attestation statement: The following information was validated with the patient. Source: old records reviewed Medical History Anxiety Bipolar 1 disorder Contusion Depression Foot drop, right foot Heart murmur Schizophrenia Surgical History No pertinent past surgical history Social History Social History Alcohol intake: current Alcohol intake frequency: a few times a week Alcohol type: beer and hard liquor Patient Tobacco Use Status: Current everyday Tobacco user Substance Use Type: Marijuana Advance Directives: No Advance Directives Information Provided: No Physical Exam Vital Signs: Vital Signs: Last Vital Signs Temp 98.7 F 08/03/22 21:48 Pulse 102 H 08/03/22 21:48 Resp 20 08/03/22 21:48 BP 139/94 H 08/03/22 21:48 Pulse Ox 96 08/03/22 21:48 BMI result Body Mass Index 20.0 Appearance: Alert.?Oriented to person, place and time. No acute distress.?Normal affect. Eyes: Pupils equal, round and reactive to light.? ENT: Pharynx normal.?? Neck: Normal inspection.? Neck supple.?? CVS: Heart sounds normal. Normal heart rate and rhythm.? Pulses normal.?? Respiratory: No respiratory distress.? Lung sounds clear to auscultation bilaterally?? Abdomen: Soft and non-tender. Normoactive bowel sounds. Skin: Skin warm and dry.? Normal skin color.? ? Extremities: No lower extremity edema.? No calf ttp. 2+ DP/PT pulse bilaterally. Left foot is without erythema, warmth, rash, lesion/wound. Tenderness with palpation over the metatarsals. No obvious deformity. Neuro: Moves all extremities spontaneously. Sensation intact bilaterally. No focal neuro deficits. Ambulates with normal steady gait. Course Course Course Narrative: Patient is a 37-year-old male who presents emergency department for evaluation of atraumatic left foot pain. He is overall well-appearing. Noted to be ambulating with steady gait throughout the halls. X-ray reveals no acute fracture dislocation. There is mention of a 2 mm radiodense linear object overlying the plantar soft tissue of foot. Patient with no recent trauma, laceration, no wound is present, there is no erythema, warmth, swelling to suggest infection. Do not suspect this to be the cause for his pain at this time, as pain is felt only dorsally by his report, and upon palpation over the 3-5 metatarsals. Discharge Plan Discharge Clinical Impression: Metatarsalgia of left foot Patient Disposition: Home, Self-Care Instructions: Metatarsalgia (DC) Additional Instructions: The x-ray of your left foot does not show any cause for the pain that you are experiencing. You can take Tylenol 500 mg, 2 tablets (1,000mg) every 4-6 hours as needed for pain, but not to exceed 3 doses daily (3,000mg).? Since excessive walking makes your pain worse you should avoid this if possible, consider taking a few days to rest, apply ice to the area for 10-15 minutes 3-4 times daily. You could also consider changing your foot wear as this may be contributing to the pain. Follow-up with your primary care provider as needed. Prescriptions: No Action Anbesol (benzocaine) 10 % gel 1 appl mucous membrane QID PRN (Reason: mouth irritation) Qty: 9 0RF omeprazole magnesium [Prilosec OTC] 20 mg tablet,delayed release (DR/EC) 20 mg PO BID Qty: 30 0RF acetaminophen [Tylenol Extra Strength] 500 mg tablet 500 mg PO Q6H PRN (Reason: fever or pain) Qty: 14 0RF lidocaine [Lidoderm] 5 % adhesive patch,medicated 1 patch topical DAILY MDD remove after 12 hours PRN (Reason: pain) Qty: 30 0RF Rx Instructions: leave on most painful area for up to 12 hrs naproxen 500 mg tablet 500 mg PO BID PRN (Reason: pain) 10 Days Qty: 20 0RF ibuprofen 600 mg tablet 600 mg PO Q6H PRN (Reason: pain) Qty: 30 0RF cyclobenzaprine 10 mg tablet 10 mg PO TID PRN (Reason: muscle pain or spasm) Qty: 20 0RF ketorolac 10 mg tablet 10 mg PO TID 5 Days Qty: 15 0RF cyclobenzaprine 10 mg tablet 10 mg PO TID PRN (Reason: muscle spasm) Qty: 14 0RF Rx Instructions: Do not use before working with machinery or driving ibuprofen 600 mg tablet 600 mg PO TID PRN (Reason: pain) Qty: 14 0RF cyclobenzaprine 10 mg tablet 10 mg PO TID PRN (Reason: muscle spasm) Qty: 10 0RF ibuprofen 600 mg tablet 600 mg PO Q6H PRN (Reason: pain) Qty: 20 0RF naproxen [Naprosyn] 500 mg tablet 500 mg PO BID Qty: 20 0RF cyclobenzaprine 10 mg tablet 10 mg PO TID PRN (Reason: muscle spasm) Qty: 14 0RF
--- OUTSIDE RECORDS SUMMARY | 2022-08-03 22:18 | XMS_ITS | Continuity of Care Document ---
:1985 Author Organization [facility] Address [address] [place] [address]- Care Team Providers Name Role Phone Not on Staff, PCP Primary Care Physician Unavailable [place] [facility] [place] - 01/04/[address] [address]- Discharge Disposition: A-D/C AMA Attending Physician: Kenny Gomez DO Admitting Physician: Kenny Gomez DO Referring Physician: Not on Staff, Referring MD Allergies, Adverse Reactions, Alerts Substance Reaction Severity Status penicillin O/E - lip swelling Active Immunizations Given and Recorded Vaccine Date Status Refusal Reason pneumococcal 23-valent vaccine 02/18/18 Given influenza virus vaccine, inactivated1 09/29/13 Given Not Given Vaccine Date Status Refusal Reason pneumococcal 23-valent vaccine 11/28/17 Not Given P atient Refuses pneumococcal 23-valent vaccine 11/14/15 Not Given P atient Refuses influenza virus vaccine, inactivated2 02/18/18 Not Given Patient Refuses influenza virus vaccine, inactivated 11/28/17 Not Given Patient Refuses influenza virus vaccine, inactivated 11/14/15 Not Given Patient Refuses influenza virus vaccine, inactivated 09/11/15 Not Given Patient Refuses 1Result Comment: [09/29/2013] Ordered by [id number] Note: Pt educated on why this medication was ordered and its therapuetic effect. pt refused after education Medications hydroxychloroquine 200 mg oral tablet 200 mg, 1, tablet, By Mouth, Daily, Refills 0, Maintenance, 07/14/18 13:29:21 EDT Start Date: 07/14/18 Status: Orderedmirtazapine 15 mg oral tablet 1 tablet = 15 mg, By Mouth, Daily at bedtime, 0 Refills, Maintenance, 02/22/18 9:48:33 EDT Start Date: 02/22/18 Status: Orderedomeprazole 20 mg oral enteric coated capsule 1 capsule = 20 mg, By Mouth, Daily, before breakfast, # 30 capsule, 5 Refills, Maintenance, 07/14/1815:07:16 EDT, EC Capsule Start Date: 07/14/18 Status: Orderedprazosin 1 mg oral capsule 1 mg, 1, capsule, By Mouth, Daily at bedtime, Refills 0, Maintenance, 02/22/18 9:48:32 EDT Start Date: 02/22/18 Status: OrderedRisperidone 2 times a day, 0 Refills, Maintenance, 05/19/18 14:02:47 EDT Start Date: 05/19/18 Status: Ordered Problem List Condition Effective Dates Status Health Status Informant Depressive disorder(Confirmed) Active Low back pain(Confirmed) Active Vital Signs Most recent to oldest [Reference Range]: 1 Oxygen Saturation [94-100 %] 100 % (01/04/21 4:02 PM) Pulse Rate [55-90 bpm] 82 bpm (01/04/21 4:02 PM) Blood Pressure [90-138/55-84 mm Hg] 125/76 mm Hg (01/04/21 4:02 PM) Respiratory Rate [16-30 br/min] 17 br/min (01/04/21 4:02 PM) Temperature [96.8-100.4 DegF] 98.2 DegF (01/04/21 4:02 PM) Mode of Delivery (Oxygen) Room air (01/04/21 4:02 PM) Blood pressure sites Arm, left (01/04/21 4:02 PM) Temperature Route Oral (01/04/21 4:02 PM) Social History Social History Type Response Smoking Status Former smoker; Tobacco user in household: No entered on: 05/19/18 Sex
--- OUTSIDE RECORDS SUMMARY | 2022-08-03 22:18 | XMS_ITS | Continuity of Care Document ---
:1985 Author Organization [facility] Address [address] [place] [address]- Care Team Providers Name Role Phone Not on Staff, PCP Primary Care Physician Unavailable Encounter [facility] [place] Date(s): 03/04/21 - 03/04/[address] [address]- Discharge Disposition: A-D/C Home Attending Physician: Kleber Faith MD Admitting Physician: Kleber Faith MD Referring Physician: Not on Staff, Referring MD [...] Patient Refuses 1Result Comment: [09/29/2013] Ordered by Anuel Note: Pt educated on why this medication was ordered and its therapuetic effect. pt refused after education Medications hydroxychloroquine 200 mg oral tablet 200 mg, 1, tablet, By Mouth, Daily, Refills 0, Maintenance, 07/14/18 13:29:21 EDT Start Date: 07/14/18 Status: Orderedmirtazapine 15 mg oral tablet 1 tablet = 15 mg, By Mouth, Daily at bedtime, 0 Refills, Maintenance, 02/22/18 9:48:33 EDT Start Date: 4/24/18 Status: Orderedomeprazole 20 mg oral enteric coated [...] 1 Oxygen Saturation [94-100 %] 100 % (03/04/21 4:06 PM) Pulse Rate [55-90 bpm] 74 bpm (03/04/21 4:06 PM) Blood Pressure [90-138/55-84 mm Hg] 138/84 mm Hg (03/04/21 4:06 PM) Respiratory Rate [16-30 br/min] 17 br/min (03/04/21 4:06 PM) Temperature [96.8-100.4 DegF] 98 DegF (03/04/21 4:06 PM) Mode of Delivery (Oxygen) Room air (03/04/21 4:06 PM) Temperature Route Oral (03/04/21 4:06 PM) Social History Social History Type Response Smoking Status Former smoker; Tobacco user in household: No entered on: 05/19/18 Sex
[2022-08-03] MEDS: Acetaminophen 325 MG TABLET 975 MG PO (22:39)
== END 2022-08-03 22:46 | disposition home or self-care (01) ==
PROVIDERS: Emergency Provider Emergency Medicine Emergency Medical Services
DX: M77.42 Metatarsalgia, left foot (principal); I10 Essential (primary) hypertension; F19.10 Other psychoactive substance abuse, uncomplicated; F12.90 Cannabis use, unspecified, uncomplicated; F17.200 Nicotine dependence, unspecified, uncomplicated
CPT/HCPCS: 73630; 99283

== ENCOUNTER 2022-09-21 05:52 | Emergency (ER) | payer OTHER, SELFPAY ==
--- NOTE | ~2022-09-21 | XR_ITS ---
EXAMINATION: XR CHEST CLINICAL INFORMATION: SOB COMPARISON: None TECHNIQUE: Frontal view of the chest was obtained. FINDINGS: No significant abnormality is noted involving the heart, lungs, mediastinum, bony thorax or soft tissues. XR/XR chest 1V IMPRESSION: Unremarkable chest examination.
[2022-09-21 05:59] VITALS: BP 81/45; PULSE 71; RESP 18; TEMP 36.6; O2SAT 98; BMI 20.5
[2022-09-21 06:19] LABS: MANUAL DIFF FLAG NO
[2022-09-21 06:20] VITALS: BP 90/30; PULSE 69; RESP 16; O2SAT 100
[2022-09-21] MEDS: 0.9 % Sodium Chloride 1,000 ML 999 ML IV (06:20)
[2022-09-21 06:24] LABS: Basophils Percent Auto 0.5 % (0-2); Eosinophils Absolute Auto 0.4 X10*3/uL (0.0-0.4); Hematocrit 38.9 % (42.0-52.0); Hemoglobin 13.1 g/dl (14.0-18.0); Imm Gran Abs Auto 0.02 X10*3/uL (0.00-0.03); Imm Gran Pct Auto 0.2 % (0.0-0.4); Lymphocytes Absolute Auto 2.5 X10*3/uL (1.2-4.9); Lymphocytes Percent Auto 29.7 % (20-40); Mean Corpuscular HGB Conc 33.7 g/dl (31.0-36.0); Mean Corpuscular Hemoglobin 32.8 pg (27.0-33.0); Mean Corpuscular Volume 97.3 fL (80.0-98.0); Mean Platelet Volume 9.7 fL (9.4-12.4); Monocytes Absolute Auto 0.8 X10*3/uL (0.1-1.2); Monocytes Percent Auto 9.5 % (2-11); Neutrophils Absolute Auto 4.7 x10*3/uL (2.0-8.3); Neutrophils Percent Auto 55.1 % (45-73); Platelet Count 216 X10*3/uL (160-400); Red Cell Distribution Width 12.9 % (11.0-16.0); White Blood Count 8.5 X10*3/uL (4.8-10.8)
--- NOTE | 2022-09-21 06:25 | PC.NURSE ---
dr machado updated on pt status and vitals, ivf infusing and labs pending. pt is alert and oriented with low bp
[2022-09-21 06:36] VITALS: BP 90/32; PULSE 67; RESP 13; TEMP 36.8; O2SAT 100
[2022-09-21 06:36] LABS: Alanine Aminotransferase 23 U/L (0-40); Albumin Level 4.4 g/dL (3.5-5.0); Alkaline Phosphatase 62 U/L (39-117); Anion Gap 11 (12-20); Aspartate Amino Transferase 19 U/L (5-37); Bilirubin Total 0.9 mg/dL (0.0-1.0); Blood Urea Nitrogen 13 mg/dL (9-16); Carbon Dioxide 30 mmol/L (22-29); Chloride 105 mmol/L (96-108); Estimated Glomerular Filt Rate > 60; Glucose Random 88 mg/dL (60-115); Potassium 3.8 mmol/L (3.3-5.1); Sodium 142 mmol/L (135-145)
[2022-09-21 06:42] VITALS: BP 87/49; PULSE 69; RESP 9; O2SAT 100
[2022-09-21 06:59] LABS: Influenza A PCR NEGATIVE (Negative); Influenza B PCR NEGATIVE (Negative); Resp Syncy Virus RNA Qual PCR NEGATIVE (Negative); SARS COV2 PCR INHOUSE NEGATIVE (Negative)
--- NOTE | 2022-09-21 07:02 | ED_ITS ---
HPI - Back Pain/Injury General Chief Complaint: Back Pain/Injury Stated Complaint: back pain, leg pain Time Seen by Provider: 09/21/22 06:50 Source: patient Mode of arrival: ambulatory Limitations: no limitations History of Present Illness HPI Narrative: 37-year-old male came in for evaluation of low back pain, low back pain for few days, patient had a history of back injury 6 years ago while he was working in [employer], no fever, no chills, no urinary or stool incontinence, patient feels the pain radiating to both lower extremities with no weakness, patient actively use heroin sometimes IV but mostly by sniffing. Decline chest pain or shortness of breath. Patient found to be hypotensive but patient complained of no dizziness or feeling of lightheadedness. Reviewing patient's old chart his blood pressure runs on the lower side. Patient declined any fever chills. Related Data Previous Rx's Medication Instructions Recorded cyclobenzaprine 10 mg tablet 10 mg PO TID PRN muscle pain or 09/21/21 spasm #20 tabs ketorolac 10 mg tablet 10 mg PO TID 5 days #15 tabs 09/21/21 cyclobenzaprine 10 mg tablet 10 mg PO TID PRN muscle spasm #14 12/03/21 tabs ibuprofen 600 mg tablet 600 mg PO TID PRN pain #14 tabs 12/03/21 cyclobenzaprine 10 mg tablet 10 mg PO TID PRN muscle spasm #10 12/27/21 tabs ibuprofen 600 mg tablet 600 mg PO Q6H PRN pain #20 tabs 12/27/21 benzocaine 10 % mucosal gel 1 appl mucous membrane QID PRN 02/08/22 (Anbesol (benzocaine)) mouth irritation #9 grams omeprazole magnesium 20 mg 20 mg PO BID #30 tabs 02/15/22 tablet,delayed release (Prilosec OTC) naproxen 500 mg tablet (Naprosyn) 500 mg PO BID #20 tabs 03/10/22 acetaminophen 500 mg tablet 500 mg PO Q6H PRN fever or pain 05/17/22 (Tylenol Extra Strength) #14 tabs lidocaine 5 % topical patch 1 patch topical DAILY PRN pain #30 05/17/22 (Lidoderm) ea naproxen 500 mg tablet 500 mg PO BID PRN pain 10 days #20 05/17/22 tabs ibuprofen 600 mg tablet 600 mg PO Q6H PRN pain #30 tabs 06/17/22 cyclobenzaprine 10 mg tablet 10 mg PO TID PRN muscle spasm #14 07/03/22 tabs Allergies Allergy/AdvReac Type Severity Reaction Status Date / Time Penicillins [PCN] Allergy Mild RASH Verified 09/21/22 05:59 silver AdvReac Intermediate rash Verified 09/21/22 05:59 [From TEGADERM AG MESH] Review of Systems Review of Systems: All other systems are reviewed and are negative Constitutional: Reports as per HPI and Reports no additional constitutional complaints Eyes: Reports as per HPI and Reports no additional eye complaints Reports system reviewed and no additional complaints, except as documented Cardiovascular: Reports as per HPI and Reports no additional cardiovascular complaints Respiratory: Reports as per HPI and Reports no additional respiratory complaints Gastrointestinal: Reports as per HPI and Reports no additional gastrointestinal complaints Genitourinary: Reports no additional female genitourinary complaints Musculoskeletal: Reports no additional musculoskeletal complaints Skin/Breast: Reports system reviewed and no additional complaints, except as docu Psychiatric: Reports no additional psychiatric complaints Endocrine: Reports no additional endocrine complaints Hematologic/Lymphatic: Reports no additional hematologic/lymphatic complaints Allergic/Immunologic: Reports no additional allergic/immunologic complaints Reports system reviewed and no additional complaints, except as documented and Reports Abnormal speech present [facility] Past Medical History Medical History Anxiety Bipolar 1 disorder Contusion Depression Foot drop, right foot Heart murmur Schizophrenia Surgical History No pertinent past surgical history Social History Social History Alcohol intake: never Patient Tobacco Use Status: Current everyday Tobacco user Smoked in Last 30 Days: Yes Substance Use Type: Heroin and Marijuana Last Used Substance: Hours (ago) Advance Directives: No Advance Directives Information Provided: Yes Physical Exam Vital Signs: Vital Signs: Last Vital Signs Temp 98.2 F 09/21/22 07:18 Pulse 65 09/21/22 07:18 Resp 11 L 09/21/22 07:18 BP 90/44 L 09/21/22 07:18 Pulse Ox 100 09/21/22 07:18 O2 Del Method 09/21/22 07:18 BMI result Body Mass Index 20.5 Vital signs have been reviewed as appeared to be correct. Blood pressure low. Heart rate normal. Respiration rate normal. Temperature normal. Oxygen saturation normal. Appearance: Alert. Oriented X3. No acute distress. Head: Normal external exam. Normocephalic. Atraumatic. No Hernandez signs noted. No raccoon eyes noted Eyes: PERRLA. EOMI. Conjunctiva and sclera normal. Eyelids normal. ENT: TM's Normal. Pharynx normal. Uvula midline. Moist mucous membranes. No trismus noted. No drooling noted. No muffled voice noted. Neck: Normal inspection. Neck supple. FROM. No adenopathy. Thyroid Normal. No meningeal signs. No neck mass noted. CVS: Normal heart rate and rhythm. Heart sound normal. No murmurs noted. Pulses normal throughout. Respiratory: No respiratory distress. Painless inspiration. Breath sounds normal. No wheezes/rales/rhonchi noted. Chest nontender. No accessory muscle usage noted or decreased air movement noted. Abdomen: Soft and nontender. Bowel sounds normal in all 4 quadrants. No distention noted. No organomegaly noted. No visible injury noted. Back: No CVA tenderness. Full range of motion noted. Skin: Skin warm and dry. Normal skin color. Normal skin turgor. No rashes/lesions/lacerations noted. Extremities: No lower extremity edema. Extremities exhibit normal range of motion. Extremities nontender. Neuro: Oriented X 3. Cranial nerve exam: II-XII are grossly intact No motor deficit. No sensory deficit. Reflexes normal. Course Course Course Narrative: 37-year-old male history of drug abuse came in with back pain found to be hyp otensive in the emergency department reviewing old chart patient's blood pressure usually runs low patient is asymptomatic, there is a low concern of epidural abscess involvement MRI was ordered patient now is awake, alert, oriented x3 and wanted to be discharged from the hospital, I explained to the patient my concern of the epidural abscess and complication of causing long-term paralysis or neurological damage patient fully understand my concern and still signing against medical advise patient is not giving reason why he insists to leave. Medications Administered Discontinued Medications Generic Name Dose Route Start Last Admin Trade Name Freq PRN Reason Stop Dose Admin Sodium Chloride 1,000 mls @ 999 mls/hr 09/21/22 06:30 09/21/22 06:20 Ns IV 09/21/22 07:30 999 mls/hr .Q1H1M MEAGAN Administration MDM - Back Pain/Injury Lab Data Attestation: I reviewed the patient's lab results. Result diagrams: 09/21/22 06:09 09/21/22 06:09 Labs: Lab Results 09/21/22 09/21/22 09/21/22 Range/Units 06:09 06:09 06:09 WBC 8.5 (4.8-10.8) X10*3/uL RBC 4.00 L (4.60-5.80) X10*6/uL Hgb 13.1 L (14.0-18.0) g/dl Hct 38.9 L (42.0-52.0) % MCV 97.3 (80.0-98.0) fL MCH 32.8 (27.0-33.0) pg MCHC 33.7 (31.0-36.0) g/dl RDW 12.9 (11.0-16.0) % Plt Count 216 (160-400) X10*3/uL MPV 9.7 (9.4-12.4) fL Immature Gran % (Auto) 0.2 (0.0-0.4) % Neut % (Auto) 55.1 (45-73) % Lymph % (Auto) 29.7 (20-40) % [place] % (Auto) 9.5 (2-11) % Eos % (Auto) 5.0 H (0-4) % Baso % (Auto) 0.5 (0-2) % Lymph # (Auto) 2.5 (1.2-4.9) X10*3/uL [place] # (Auto) 0.8 (0.1-1.2) X10*3/uL Eos # (Auto) 0.4 (0.0-0.4) X10*3/uL Baso # (Auto) 0.0 (0.0-0.2) X10*3/uL Abs Immat Gran (auto) 0.02 (0.00-0.03) X10*3/uL Absolute Neuts (auto) 4.7 (2.0-8.3) x10*3/uL Absolute Nucleated RBC 0.000 (0.0-0.012) X10*3/uL Nucleated RBC % (auto) 0.0 (0.0-0.2) /100WBC D-Dimer High Sensitivty NG/ML Sodium 142 (135-145) mmol/L Potassium 3.8 D (3.3-5.1) mmol/L Chloride 105 (96-108) mmol/L Carbon Dioxide 30 H (22-29) mmol/L Anion Gap 11 L (12-20) BUN 13 (9-16) mg/dL Creatinine 1.25 (0.5-1.4) mg/dL Estim Creat Clear Calc 70.0 Estimated GFR > 60 Random Glucose 88 (60-115) mg/dL Lactic Acid (0.5-2.0) mmol/L Calcium 9.0 D (8.4-10.2) mg/dL Magnesium 2.0 (1.6-2.6) mg/dL Total Bilirubin 0.9 (0.0-1.0) mg/dL AST 19 (5-37) U/L ALT 23 (0-40) U/L Alkaline Phosphatase 62 (39-117) U/L Total Creatine Kinase 159 (38-174) U/L Total Protein 7.0 (6.5-8.0) g/dL Albumin 4.4 (3.5-5.0) g/dL Lipase 80 H (8-78) U/L Influenza Type A (PCR) NEGATIVE (Negative) Influenza Type B (PCR) NEGATIVE (Negative) RSV RNA Qual (PCR) NEGATIVE (Negative) SARS-CoV-2 RNA (RT-PCR) NEGATIVE (Negative) 09/21/22 09/21/22 Range/Units 06:56 07:08 WBC (4.8-10.8) X10*3/uL RBC (4.60-5.80) X10*6/uL Hgb (14.0-18.0) g/dl Hct (42.0-52.0) % MCV (80.0-98.0) fL MCH (27.0-33.0) pg MCHC (31.0-36.0) g/dl RDW (11.0-16.0) % Plt Count (160-400) X10*3/uL MPV (9.4-12.4) fL Immature Gran % (Auto) (0.0-0.4) % Neut % (Auto) (45-73) % Lymph % (Auto) (20-40) % [place] % (Auto) (2-11) % Eos % (Auto) (0-4) % Baso % (Auto) (0-2) % Lymph # (Auto) (1.2-4.9) X10*3/uL [place] # (Auto) (0.1-1.2) X10*3/uL Eos # (Auto) (0.0-0.4) X10*3/uL Baso # (Auto) (0.0-0.2) X10*3/uL Abs Immat Gran (auto) (0.00-0.03) X10*3/uL Absolute Neuts (auto) (2.0-8.3) x10*3/uL Absolute Nucleated RBC (0.0-0.012) X10*3/uL Nucleated RBC % (auto) (0.0-0.2) /100WBC D-Dimer High Sensitivty < 150 NG/ML Sodium (135-145) mmol/L Potassium (3.3-5.1) mmol/L Chloride (96-108) mmol/L Carbon Dioxide (22-29) mmol/L Anion Gap (12-20) BUN (9-16) mg/dL Creatinine (0.5-1.4) mg/dL Estim Creat Clear Calc Estimated GFR Random Glucose (60-115) mg/dL Lactic Acid 0.6 (0.5-2.0) mmol/L Calcium (8.4-10.2) mg/dL Magnesium (1.6-2.6) mg/dL Total Bilirubin (0.0-1.0) mg/dL AST (5-37) U/L ALT (0-40) U/L Alkaline Phosphatase (39-117) U/L Total Creatine Kinase (38-174) U/L Total Protein (6.5-8.0) g/dL Albumin (3.5-5.0) g/dL Lipase (8-78) U/L Influenza Type A (PCR) (Negative) Influenza Type B (PCR) (Negative) RSV RNA Qual (PCR) (Negative) SARS-CoV-2 RNA (RT-PCR) (Negative) Imaging Data Chest x-ray: Attestation: I personally reviewed and interpreted this imaging study as follows: Radiologist's impression: Unremarkable chest examination. Discharge Plan Discharge Clinical Impression: Back pain, Substance abuse Patient Disposition: Left Against Medical Advice Instructions: Polysubstance Abuse (ED), Back Pain (ED) Prescriptions: No Action Anbesol (benzocaine) 10 % gel 1 appl mucous membrane QID PRN (Reason: mouth irritation) Qty: 9 0RF omeprazole magnesium [Prilosec OTC] 20 mg tablet,delayed release (DR/EC) 20 mg PO BID Qty: 30 0RF acetaminophen [Tylenol Extra Strength] 500 mg tablet 500 mg PO Q6H PRN (Reason: fever or pain) Qty: 14 0RF lidocaine [Lidoderm] 5 % adhesive patch,medicated 1 patch topical DAILY MDD remove after 12 hours PRN (Reason: pain) Qty: 30 0RF Rx Instructions: leave on most painful area for up to 12 hrs naproxen 500 mg tablet 500 mg PO BID PRN (Reason: pain) 10 Days Qty: 20 0RF ibuprofen 600 mg tablet 600 mg PO Q6H PRN (Reason: pain) Qty: 30 0RF cyclobenzaprine 10 mg tablet 10 mg PO TID PRN (Reason: muscle pain or spasm) Qty: 20 0RF ketorolac 10 mg tablet 10 mg PO TID 5 Days Qty: 15 0RF cyclobenzaprine 10 mg tablet 10 mg PO TID PRN (Reason: muscle spasm) Qty: 14 0RF Rx Instructions: Do not use before working with machinery or driving ibuprofen 600 mg tablet 600 mg PO TID PRN (Reason: pain) Qty: 14 0RF cyclobenzaprine 10 mg tablet 10 mg PO TID PRN (Reason: muscle spasm) Qty: 10 0RF ibuprofen 600 mg tablet 600 mg PO Q6H PRN (Reason: pain) Qty: 20 0RF naproxen [Naprosyn] 500 mg tablet 500 mg PO BID Qty: 20 0RF cyclobenzaprine 10 mg tablet 10 mg PO TID PRN (Reason: muscle spasm) Qty: 14 0RF Referrals: Physician,Unknown J [Primary Care Provider] -
[2022-09-21 07:18] VITALS: BP 90/44; PULSE 65; RESP 11; TEMP 36.8; O2SAT 100
[2022-09-21 07:26] LABS: Lactic Acid 0.6 mmol/L (0.5-2.0)
[2022-09-21 07:32] LABS: Lipase 80 U/L (8-78)
[2022-09-21 07:52] LABS: D Dimer High Sensitivity < 150 NG/ML
--- NOTE | 2022-09-21 08:31 | PC.NURSE ---
PT WANTS TO LEAVE DR OWENS AWARE PT IS LEAVING AMA
== END 2022-09-21 08:42 | disposition left against medical advice (07) ==
PROVIDERS: Student in an Organized Health Care Education/Training Program; Emergency Provider Emergency Medicine
DX: M54.50 Low back pain, unspecified (principal); F19.10 Other psychoactive substance abuse, uncomplicated; I10 Essential (primary) hypertension; Z20.822 Contact with and (suspected) exposure to COVID-19; Z79.899 Other long term (current) drug therapy
CPT/HCPCS: 0241U; 36415; 71045; 80053; 82550; 83605; 83690; 83735; 85025; 85379; 87040; 99283; 99284

== ENCOUNTER 2022-10-02 01:05 | Emergency (ER) | payer OTHER, SELFPAY ==
[2022-10-02 01:18] VITALS: BP 113/79; PULSE 97; RESP 20; TEMP 36.7; O2SAT 96; BMI 24.3
[2022-10-02 01:56] VITALS: BP 116/71; PULSE 94; RESP 18; TEMP 36.9; O2SAT 95
[2022-10-02] MEDS: Ibuprofen 600 MG TABLET PO (02:36)
[2022-10-02] MEDS: Cyclobenzaprine HCl 10 MG TABLET PO (02:36)
--- NOTE | 2022-10-02 03:00 | ED.EXTPRO ---
HPI - Extremity Problem General Chief complaint: Extremity Problem Stated complaint: L Leg pain/Back pain Time Seen by Provider: 10/02/22 02:18 Source: patient Mode of arrival: ambulatory Limitations: no limitations History of Present Illness HPI Narrative: Patient has history of chronic left thigh muscular pain having pain again for last 2 days history of remote injury 3 years ago patient able to ambulate without any significant distress no swelling of the muscles no bone pain Related Data Previous Rx's Medication Instructions Recorded cyclobenzaprine 10 mg tablet 10 mg PO TID PRN muscle pain or 09/21/21 spasm #20 tabs ketorolac 10 mg tablet 10 mg PO TID 5 days #15 tabs 09/21/21 cyclobenzaprine 10 mg tablet 10 mg PO TID PRN muscle spasm #14 12/03/21 tabs ibuprofen 600 mg tablet 600 mg PO TID PRN pain #14 tabs 12/03/21 cyclobenzaprine 10 mg tablet 10 mg PO TID PRN muscle spasm #10 12/27/21 tabs ibuprofen 600 mg tablet 600 mg PO Q6H PRN pain #20 tabs 12/27/21 benzocaine 10 % mucosal gel 1 appl mucous membrane QID PRN 02/08/22 (Anbesol (benzocaine)) mouth irritation #9 grams omeprazole magnesium 20 mg 20 mg PO BID #30 tabs 02/15/22 tablet,delayed release (Prilosec OTC) naproxen 500 mg tablet (Naprosyn) 500 mg PO BID #20 tabs 03/10/22 acetaminophen 500 mg tablet 500 mg PO Q6H PRN fever or pain 05/17/22 (Tylenol Extra Strength) #14 tabs lidocaine 5 % topical patch 1 patch topical DAILY PRN pain #30 05/17/22 (Lidoderm) ea naproxen 500 mg tablet 500 mg PO BID PRN pain 10 days #20 05/17/22 tabs ibuprofen 600 mg tablet 600 mg PO Q6H PRN pain #30 tabs 06/17/22 cyclobenzaprine 10 mg tablet 10 mg PO TID PRN muscle spasm #14 07/03/22 tabs cyclobenzaprine 10 mg tablet 10 mg PO Q8H #20 tabs 10/02/22 ibuprofen 600 mg tablet 600 mg PO Q6H PRN fever or pain 10/02/22 #30 tabs Allergies Allergy/AdvReac Type Severity Reaction Status Date / Time Penicillins [PCN] Allergy Mild RASH Verified 10/02/22 01:22 silver AdvReac Intermediate rash Verified 10/02/22 01:22 [From TEGADERM AG MESH] Review of Systems Review of Systems: Yes all other systems are reviewed and are negative [facility] Past Medical History Medical History Anxiety Bipolar 1 disorder Contusion Depression Foot drop, right foot Heart murmur Schizophrenia Surgical History No pertinent past surgical history Social History Social History Alcohol intake: current Alcohol intake frequency: a few times a week Alcohol type: beer and hard liquor Patient Tobacco Use Status: Current everyday Tobacco user Smoked in Last 30 Days: Yes Use of substances other than those prescribed or required for medical reasons: Yes Substance Use Type: Crack/Cocaine Advance Directives: No Advance Directives Information Provided: Yes Physical Exam Vital Signs: Vital Signs: Last Vital Signs Temp 98.5 F 10/02/22 01:56 Pulse 94 10/02/22 01:56 Resp 18 10/02/22 01:56 BP 116/71 10/02/22 01:56 Pulse Ox 95 10/02/22 01:56 O2 Del Method 10/02/22 01:56 BMI result Body Mass Index 24.3 Appearance: Alert. Oriented X3. No acute distress. Eyes: PERRLA, ENT: Pharynx normal. Oral Mucosa moist Neck: Normal inspection. Neck supple. CVS: Normal heart rate and rhythm. Pulses normal. Respiratory: No respiratory distress. Equal air entry bilateral, Abdomen: Soft and nontender. Bowel sounds are present, no mass palpable, no CVA tenderness Skin: Skin warm and dry. Normal skin color. Normal skin turgor. Extremities: No lower extremity edema. No calf tenderness mild muscular tenderness left quads no swelling good range of movement Neuro: Oriented X 3. No motor deficit. Medications Administered Discontinued Medications Generic Name Dose Route Start Last Admin Trade Name Freq PRN Reason Stop Dose Admin Cyclobenzaprine HCl 10 mg 10/02/22 02:30 10/02/22 02:36 Cyclobenzaprine Hcl 10 Mg Tablet PO 10/02/22 02:31 10 mg ONCE ONE Administration Ibuprofen 600 mg 10/02/22 02:30 10/02/22 02:36 Ibuprofen 600 Mg Tablet PO 10/02/22 02:31 600 mg ONCE ONE Administration Discharge Plan Discharge Clinical Impression: Myalgia Patient Disposition: Home, Self-Care Instructions: Musculoskeletal Pain (ED) Additional Instructions: Take ibuprofen and muscle relaxant as prescribed Follow with PCP Prescriptions: New cyclobenzaprine 10 mg tablet 10 mg PO Q8H Qty: 20 0RF ibuprofen 600 mg tablet 600 mg PO Q6H PRN (Reason: fever or pain) Qty: 30 0RF No Action Anbesol (benzocaine) 10 % gel 1 appl mucous membrane QID PRN (Reason: mouth irritation) Qty: 9 0RF omeprazole magnesium [Prilosec OTC] 20 mg tablet,delayed release (DR/EC) 20 mg PO BID Qty: 30 0RF acetaminophen [Tylenol Extra Strength] 500 mg tablet 500 mg PO Q6H PRN (Reason: fever or pain) Qty: 14 0RF lidocaine [Lidoderm] 5 % adhesive patch,medicated 1 patch topical DAILY MDD remove after 12 hours PRN (Reason: pain) Qty: 30 0RF Rx Instructions: leave on most painful area for up to 12 hrs naproxen 500 mg tablet 500 mg PO BID PRN (Reason: pain) 10 Days Qty: 20 0RF ibuprofen 600 mg tablet 600 mg PO Q6H PRN (Reason: pain) Qty: 30 0RF cyclobenzaprine 10 mg tablet 10 mg PO TID PRN (Reason: muscle pain or spasm) Qty: 20 0RF ketorolac 10 mg tablet 10 mg PO TID 5 Days Qty: 15 0RF cyclobenzaprine 10 mg tablet 10 mg PO TID PRN (Reason: muscle spasm) Qty: 14 0RF Rx Instructions: Do not use before working with machinery or driving ibuprofen 600 mg tablet 600 mg PO TID PRN (Reason: pain) Qty: 14 0RF cyclobenzaprine 10 mg tablet 10 mg PO TID PRN (Reason: muscle spasm) Qty: 10 0RF ibuprofen 600 mg tablet 600 mg PO Q6H PRN (Reason: pain) Qty: 20 0RF naproxen [Naprosyn] 500 mg tablet 500 mg PO BID Qty: 20 0RF cyclobenzaprine 10 mg tablet 10 mg PO TID PRN (Reason: muscle spasm) Qty: 14 0RF Interventions: ED Discharge Assessment Last Done: 10/02/22 03:13 Discharge Date/Time: 10/02/22 03:13
== END 2022-10-02 03:13 | disposition home or self-care (01) ==
PROVIDERS: Emergency Provider Internal Medicine
DX: M79.605 Pain in left leg (principal); M54.50 Low back pain, unspecified; F17.200 Nicotine dependence, unspecified, uncomplicated; Z71.6 Tobacco abuse counseling; Z79.899 Other long term (current) drug therapy
CPT/HCPCS: 99283; 99284

== ENCOUNTER 2022-10-15 01:34 | Emergency (ER) | payer OTHER, SELFPAY ==
[2022-10-15 01:42] VITALS: BP 122/84; PULSE 74; RESP 20; TEMP 37.1; O2SAT 99; BMI 20.5
--- NOTE | 2022-10-15 01:58 | ED.ABDPAIN ---
HPI - Abdominal Pain General Chief Complaint: Abdominal Pain Stated Complaint: stomach pain Time Seen by Provider: 10/15/22 01:50 Source: patient Mode of arrival: ambulatory Limitations: no limitations History of Present Illness HPI narrative: 37-year-old male who presents emergency department for evaluation of abdominal pain. States the pain started approximately 20 minutes prior to coming to the emergency department. He describes the pain is a gas like pain. He points to his epigastric area. States the pain is constant and 8/10 at its worst. The patient denied nausea, vomiting, diarrhea, fever or chills. He states he has had similar pains in the past. He believes that the pain is related to eating pizza earlier in the day. MD elicited complaint: abdominal pain Pertinent past history: gastritis (Pancreatitis) Onset (ago): minute(s) (20) Pain Consistency: constant Location: epigastric Severity: severe Pain scale (0-10): 8 Quality: other (Gas like pain) Radiation: none Migration to: no migration Exacerbating factors: eating (Peds) Relieving factors: nothing Associated symptoms: denies other symptoms Related Data Previous Rx's Medication Instructions Recorded cyclobenzaprine 10 mg tablet 10 mg PO TID PRN muscle pain or 09/21/21 spasm #20 tabs ketorolac 10 mg tablet 10 mg PO TID 5 days #15 tabs 09/21/21 cyclobenzaprine 10 mg tablet 10 mg PO TID PRN muscle spasm #14 12/03/21 tabs ibuprofen 600 mg tablet 600 mg PO TID PRN pain #14 tabs 12/03/21 cyclobenzaprine 10 mg tablet 10 mg PO TID PRN muscle spasm #10 12/27/21 tabs ibuprofen 600 mg tablet 600 mg PO Q6H PRN pain #20 tabs 12/27/21 benzocaine 10 % mucosal gel 1 appl mucous membrane QID PRN 02/08/22 (Anbesol (benzocaine)) mouth irritation #9 grams omeprazole magnesium 20 mg 20 mg PO BID #30 tabs 02/15/22 tablet,delayed release (Prilosec OTC) naproxen 500 mg tablet (Naprosyn) 500 mg PO BID #20 tabs 03/10/22 acetaminophen 500 mg tablet 500 mg PO Q6H PRN fever or pain 05/17/22 (Tylenol Extra Strength) #14 tabs lidocaine 5 % topical patch 1 patch topical DAILY PRN pain #30 05/17/22 (Lidoderm) ea naproxen 500 mg tablet 500 mg PO BID PRN pain 10 days #20 05/17/22 tabs ibuprofen 600 mg tablet 600 mg PO Q6H PRN pain #30 tabs 06/17/22 cyclobenzaprine 10 mg tablet 10 mg PO TID PRN muscle spasm #14 07/03/22 tabs cyclobenzaprine 10 mg tablet 10 mg PO Q8H #20 tabs 10/02/22 ibuprofen 600 mg tablet 600 mg PO Q6H PRN fever or pain 10/02/22 #30 tabs Allergies Allergy/AdvReac Type Severity Reaction Status Date / Time Penicillins [PCN] Allergy Mild RASH Verified 10/02/22 01:22 silver AdvReac Intermediate rash Verified 10/02/22 01:22 [From [employer] MESH] Review of Systems Review of Systems Yes all other systems are reviewed and are negative [facility] Past Medical History Medical History Anxiety Bipolar 1 disorder Contusion Depression Foot drop, right foot Heart murmur Schizophrenia Surgical History No pertinent past surgical history Social History Social History Alcohol intake: current Alcohol intake frequency: a few times a week Alcohol type: beer and hard liquor Patient Tobacco Use Status: Current everyday Tobacco user Substance Use Type: Crack/Cocaine Advance Directives: No Physical Exam ED Vital Signs: Vital Signs - 24 hr 10/15/22 01:42 Temperature 98.7 F Pulse Rate 74 Respiratory Rate 20 Blood Pressure 122/84 Pulse Oximetry 99 Oxygen Delivery Method Room Air BMI result Body Mass Index 20.5 Const General: cooperative and no acute distress Orientation/consciousness: oriented to person and oriented to place Limitations: no limitations HENMT Head: Yes normal to inspection, Yes normocephalic and Yes atraumatic Ears: external ears normal General nose exam: Normal external nose present Face and sinus: Yes normal facial exam Mouth: Normal oral and palatal mucosa present Throat: Yes posterior oropharynx normal Eyes General: appearance normal, both eyes and all related structures Pupils: Equal, round and reactive pupils present Neck Neck: Yes normal visual inspection, Yes no lymphadenopathy, Yes trachea midline and Yes supple Chest Chest palpation & inspection: normal inspection of the chest and normal palpation of entire chest wall Resp Effort & Inspection: normal respiratory effort and able to speak in complete sentences Auscultation: clear to auscultation bilaterally Cardio Rate: regular rate Rhythm: regular rhythm Heart sounds: S1 normal heart sound present, S2 normal heart sound present and no murmurs GI Inspection: Yes normal to inspection Palpation (GI): Soft to palpation, Tenderness to palpation present (GI) in the epigastrum (Moderate) and no guarding Auscultation: normal bowel sounds General: Yes no CVA tenderness Back/Spine/Pelvis Back: no CVA tenderness Skin General skin exam: no rashes or lesions noted Neuro General: oriented to person and oriented to place Cranial nerves: Yes CN's II-XII intact bilaterally and Yes Equal, round and reactive pupils present Cognition (Neuro): normal cognition Extrem General: Yes normal to inspection Psych Appearance: grossly normal Speech and movement: Normal speech and movement present Affect: normal affect Attitude: cooperative Course Course Course Narrative: 37-year-old male who presents emergency department for evaluation of epigastric pain started 20 minutes prior to arrival. Patient has had similar pain in the past. Physical examination did reveal epigastric tenderness. Patient's presentation is consistent with gastritis. The patient was treated with Maalox 30 cc, viscous lidocaine 10 cc and 10 cc orally. Patient was discharged home. He is advised to continue taking his medications as prescribed by his providers. Discharge Plan Discharge Clinical Impression: Gastritis Qualifiers: Chronicity: acute Gastritis bleeding: without bleeding Patient Disposition: Home, Self-Care Instructions: Gastritis (ED) Additional Instructions: Your symptoms are consistent with inflammation of your stomach (gastritis) Take Maalox 30 cc up to 4 times a day as needed for burning sensation in her stomach Follow-up with your doctor in 2 days. Please return to the emergency department if your symptoms get worse or if you develop any symptoms that are concerning to you. Prescriptions: No Action Anbesol (benzocaine) 10 % gel 1 appl mucous membrane QID PRN (Reason: mouth irritation) Qty: 9 0RF omeprazole magnesium [Prilosec OTC] 20 mg tablet,delayed release (DR/EC) 20 mg PO BID Qty: 30 0RF acetaminophen [Tylenol Extra Strength] 500 mg tablet 500 mg PO Q6H PRN (Reason: fever or pain) Qty: 14 0RF lidocaine [Lidoderm] 5 % adhesive patch,medicated 1 patch topical DAILY MDD remove after 12 hours PRN (Reason: pain) Qty: 30 0RF Rx Instructions: leave on most painful area for up to 12 hrs naproxen 500 mg tablet 500 mg PO BID PRN (Reason: pain) 10 Days Qty: 20 0RF ibuprofen 600 mg tablet 600 mg PO Q6H PRN (Reason: pain) Qty: 30 0RF cyclobenzaprine 10 mg tablet 10 mg PO TID PRN (Reason: muscle pain or spasm) Qty: 20 0RF ketorolac 10 mg tablet 10 mg PO TID 5 Days Qty: 15 0RF cyclobenzaprine 10 mg tablet 10 mg PO TID PRN (Reason: muscle spasm) Qty: 14 0RF Rx Instructions: Do not use before working with machinery or driving ibuprofen 600 mg tablet 600 mg PO TID PRN (Reason: pain) Qty: 14 0RF cyclobenzaprine 10 mg tablet 10 mg PO TID PRN (Reason: muscle spasm) Qty: 10 0RF ibuprofen 600 mg tablet 600 mg PO Q6H PRN (Reason: pain) Qty: 20 0RF naproxen [Naprosyn] 500 mg tablet 500 mg PO BID Qty: 20 0RF cyclobenzaprine 10 mg tablet 10 mg PO TID PRN (Reason: muscle spasm) Qty: 14 0RF cyclobenzaprine 10 mg tablet 10 mg PO Q8H Qty: 20 0RF ibuprofen 600 mg tablet 600 mg PO Q6H PRN (Reason: fever or pain) Qty: 30 0RF
[2022-10-15] MEDS: PHENobarb/Hyoscy/Atropine/Scop 10 ML ELIXIR PO (03:23)
[2022-10-15] MEDS: Magnesium Hydrox/Alum Hydrox 30 ML ORAL.SUSP PO (03:23)
[2022-10-15] MEDS: Lidocaine HCl Viscous 2 % 15 ML SOLUTION 10 ML PO (03:23)
== END 2022-10-15 03:30 | disposition home or self-care (01) ==
PROVIDERS: Emergency Provider Emergency Medicine Emergency Medical Services
DX: K29.00 Acute gastritis without bleeding (principal); F17.210 Nicotine dependence, cigarettes, uncomplicated; Z71.6 Tobacco abuse counseling; Z79.899 Other long term (current) drug therapy
CPT/HCPCS: 99283

== ENCOUNTER 2022-10-29 00:45 | Emergency (ER) | payer OTHER, SELFPAY ==
--- NOTE | ~2022-10-29 | XR_ITS ---
EXAMINATION: XR ANKLE, RIGHT CLINICAL INFORMATION: Pain COMPARISON: None TECHNIQUE: AP, lateral, and mortise views of the right ankle. FINDINGS: The bones and soft tissues are normal. No fracture. Alignment is anatomic. Joint spaces are maintained. No joint effusion. XR/XR ankle RT 2V IMPRESSION: Normal right ankle.
[2022-10-29 00:48] VITALS: BP 125/71; PULSE 97; RESP 18; TEMP 36.6; O2SAT 96; BMI 18.2
--- NOTE | 2022-10-29 01:03 | ED_ITS ---
HPI - Extremity Injury (Lower) General Chief Complaint: Extremity Injury, Lower Stated Complaint: R ankle pain Time Seen by Provider: 10/29/22 01:02 Source: patient Mode of arrival: ambulatory Limitations: no limitations History of Present Illness HPI Narrative: Is 37-year-old history of chronic back pain, chronic mental illness, hypertension, substance abuse, schizophrenia presenting to the emergency department with complaints of right ankle pain times a few days worsening over the past day. Patient reports 6/10 ankle pain worse with movement better at rest. Denies trauma or injury to that ankle. He denies rolling his ankle. Tells me he has rolled his ankle a lot however throughout the years because he plays basketball however not recently. Denies numbness, tingling, fevers, chills, chest pain, shortness of breath, nausea, vomiting, abdominal pain, changes in urination, headache, vision changes and dizziness. Patient ambulatory without difficulty into the room. Appears well. Related Data Previous Rx's Medication Instructions Recorded cyclobenzaprine 10 mg tablet 10 mg PO TID PRN muscle pain or 09/21/21 spasm #20 tabs ketorolac 10 mg tablet 10 mg PO TID 5 days #15 tabs 09/21/21 cyclobenzaprine 10 mg tablet 10 mg PO TID PRN muscle spasm #14 12/03/21 tabs ibuprofen 600 mg tablet 600 mg PO TID PRN pain #14 tabs 12/03/21 cyclobenzaprine 10 mg tablet 10 mg PO TID PRN muscle spasm #10 12/27/21 tabs ibuprofen 600 mg tablet 600 mg PO Q6H PRN pain #20 tabs 12/27/21 benzocaine 10 % mucosal gel 1 appl mucous membrane QID PRN 02/08/22 (Anbesol (benzocaine)) mouth irritation #9 grams omeprazole magnesium 20 mg 20 mg PO BID #30 tabs 02/15/22 tablet,delayed release (Prilosec OTC) naproxen 500 mg tablet (Naprosyn) 500 mg PO BID #20 tabs 03/10/22 acetaminophen 500 mg tablet 500 mg PO Q6H PRN fever or pain 05/17/22 (Tylenol Extra Strength) #14 tabs lidocaine 5 % topical patch 1 patch topical DAILY PRN pain #30 05/17/22 (Lidoderm) ea naproxen 500 mg tablet 500 mg PO BID PRN pain 10 days #20 05/17/22 tabs ibuprofen 600 mg tablet 600 mg PO Q6H PRN pain #30 tabs 06/17/22 cyclobenzaprine 10 mg tablet 10 mg PO TID PRN muscle spasm #14 07/03/22 tabs cyclobenzaprine 10 mg tablet 10 mg PO Q8H #20 tabs 10/02/22 ibuprofen 600 mg tablet 600 mg PO Q6H PRN fever or pain 10/02/22 #30 tabs ketorolac 10 mg tablet 10 mg PO TID PRN pain 5 days #15 10/29/22 tabs prednisone 20 mg tablet 40 mg PO DAILY 5 days #10 tabs 10/29/22 Allergies Allergy/AdvReac Type Severity Reaction Status Date / Time Penicillins [PCN] Allergy Mild RASH Verified 10/02/22 01:22 silver AdvReac Intermediate rash Verified 10/02/22 01:22 [From [employer] MESH] Review of Systems Review of Systems: Constitutional : No Weight loss, No Fever, No Chills, No Fatigue, No Malaise ENT/Mouth : No sore throat, No Rhinorrhea Eyes: No Eye Pain, No Swelling, No Redness Cardiovascular : No Chest Pain, No SOB, No Dyspnea on Exertion, No Orthopnea, No Edema, No Palpitations Respiratory : No Cough, No Sputum, No Wheezing Gastrointestinal : No Nausea, No Vomiting, No Diarrhea, No Constipation, No abdominal Pain, No Hematochezia, No Melena Genitourinary : No Dysuria, No Urinary Frequency, No Hematuria, Musculoskeletal : + joint pain, No Myalgias, No Joint Swelling Skin : No Skin Lesions, No rash Neuro : No Weakness, No Numbness, No Dizziness, No Headache Psych : No Anxiety/Panic, No Depression All other systems reviewed and are negative Yes all other systems are reviewed and are negative [facility] Past Medical History Attestation statement: The following information was validated with the patient. Source: old records reviewed and nursing notes reviewed Medical History Anxiety Bipolar 1 disorder Contusion Depression Foot drop, right foot Heart murmur Schizophrenia Surgical History No pertinent past surgical history Social History Social History Alcohol intake: current Alcohol intake frequency: a few times a week Alcohol type: beer and hard liquor Patient Tobacco Use Status: Current everyday Tobacco user Substance Use Type: Crack/Cocaine Advance Directives: No Advance Directives Information Provided: Yes Physical Exam 2 Vital Signs: Vital Signs: Last Vital Signs Temp 97.9 F 10/29/22 00:48 Pulse 97 10/29/22 00:48 Resp 18 10/29/22 00:48 BP 125/71 10/29/22 00:48 Pulse Ox 96 10/29/22 00:48 O2 Del Method 10/29/22 00:48 BMI result Body Mass Index 18.2 vss Appearance: Alert.? Oriented X3.? No acute distress.? Head: Normocephalic, atraumatic, no step-offs or deformities Eyes: Pupils equal, round and reactive to light.? CVS: Normal heart rate and rhythm.? Pulses normal.? Respiratory: No respiratory distress.? Breath sounds normal.? Abdomen: Soft and nontender.? Skin: Skin warm and dry.? Normal skin color.? Normal skin turgor.? Extremities: No lower extremity edema.? No calf ttp. 5/5 strength to bilateral upper and lower extremities. Full range of motion to bilateral ankles pain- free. No overlying skin changes, or edema. 2+ dorsalis pedis, posterior tibialis and anterior tibialis pulses equal bilateral. No cellulitis. Normal capillary refill less than 2 seconds. No foot drop. Normal sensation to lower extremities. Patient ambulating with steady gait normal coordination, no limping. Back: No midline tenderness, no C-spine tenderness, full range of motion, no CVA tenderness bilaterally Neuro: Oriented X 3.? No motor deficit.? No sensory deficit. CN 2-12 intact Course Reevaluation(s) Reevaluation #1: Patient will be given an Ousmane wrap, and will be discharged home with prednisone for suspected inflammatory arthritis. Will give him follow-up with orthopedics. Educated patient on diagnosis and treatment plan, answered all question, patient verbalizes understanding. At this time patient will be discharged home, advised to return with new or worsening symptoms. Educated on worrisome signs and symptoms and when to return. At this time I feel comfortable discharge home. Time: :04 Reevaluation #2: I looked at patient's x-ray preliminary read without fractures or dislocations. Will discharge patient home will call him if Radiology notes a positive reading. Will give him an [place] wrap for comfort. Time: 01:13 Medical Decision Making Medical Decision Making [facility] Narrative: 0103 This is a 37-year-old male presenting with atraumatic right ankle pain times a few days worsening today. Physical exam Likely inflammatory arthritis. Unlikely Zachary's syndrome, migratory arthritis, septic joint, gout or pseudogout. Plan at this time is imaging. Critical Care Time Critical Care Time Critical Care Time: No Discharge Plan Discharge Clinical Impression: Ankle pain, right Patient Disposition: Home, Self-Care Instructions: Arthralgia (ED), R.I.C.E. Treatment (ED) Additional Instructions: Take your medications as prescribed. If you were prescribed antibiotics today, it is important that you take your medication to their entirety, do not skip any doses, do not finish them early. Follow-up with your primary care provider this week. Follow-up with orthopedics if needed. Information below. Return to the emergency department with new or worsening symptoms. Such as fevers, chills, chest pain, shortness of breath, nausea, vomiting, dizziness, headache, vision changes, lethargy In case of emergency call 911 You can take Toradol which has been sent to her pharmacy. Do not mix this medication with other NSAIDs or ibuprofen. Do not drink while taking this medication. Possible side effects include increased risk for bleeding and kidney injury. Rest, ice, compress and elevate extremity. Do not apply O[place]mane wrap on too tightly. Prednisone has also been sent to her pharmacy please take this as prescribed Prescriptions: New ketorolac 10 mg tablet 10 mg PO TID PRN (Reason: pain) 5 Days Qty: 15 0RF Rx Instructions: Tolerated IM in the department prednisone 20 mg tablet 40 mg PO DAILY 5 Days Qty: 10 0RF No Action Anbesol (benzocaine) 10 % gel 1 appl mucous membrane QID PRN (Reason: mouth irritation) Qty: 9 0RF omeprazole magnesium [Prilosec OTC] 20 mg tablet,delayed release (DR/EC) 20 mg PO BID Qty: 30 0RF acetaminophen [Tylenol Extra Strength] 500 mg tablet 500 mg PO Q6H PRN (Reason: fever or pain) Qty: 14 0RF lidocaine [Lidoderm] 5 % adhesive patch,medicated 1 patch topical DAILY MDD remove after 12 hours PRN (Reason: pain) Qty: 30 0RF Rx Instructions: leave on most painful area for up to 12 hrs naproxen 500 mg tablet 500 mg PO BID PRN (Reason: pain) 10 Days Qty: 20 0RF ibuprofen 600 mg tablet 600 mg PO Q6H PRN (Reason: pain) Qty: 30 0RF cyclobenzaprine 10 mg tablet 10 mg PO TID PRN (Reason: muscle pain or spasm) Qty: 20 0RF ketorolac 10 mg tablet 10 mg PO TID 5 Days Qty: 15 0RF cyclobenzaprine 10 mg tablet 10 mg PO TID PRN (Reason: muscle spasm) Qty: 14 0RF Rx Instructions: Do not use before working with machinery or driving ibuprofen 600 mg tablet 600 mg PO TID PRN (Reason: pain) Qty: 14 0RF cyclobenzaprine 10 mg tablet 10 mg PO TID PRN (Reason: muscle spasm) Qty: 10 0RF ibuprofen 600 mg tablet 600 mg PO Q6H PRN (Reason: pain) Qty: 20 0RF naproxen [Naprosyn] 500 mg tablet 500 mg PO BID Qty: 20 0RF cyclobenzaprine 10 mg tablet 10 mg PO TID PRN (Reason: muscle spasm) Qty: 14 0RF cyclobenzaprine 10 mg tablet 10 mg PO Q8H Qty: 20 0RF ibuprofen 600 mg tablet 600 mg PO Q6H PRN (Reason: fever or pain) Qty: 30 0RF Referrals: Immanuel Lamas MD [Primary Care Provider] - 2 days [facility] [Provider Group] - 2 weeks
[2022-10-29] MEDS: Ketorolac Tromethamine 30 MG/ML VIAL IM (01:20)
== END 2022-10-29 01:29 | disposition home or self-care (01) ==
PROVIDERS: Emergency Provider Emergency Medicine; PCP Internal Medicine
DX: M25.571 Pain in right ankle and joints of right foot (principal); I10 Essential (primary) hypertension; F19.10 Other psychoactive substance abuse, uncomplicated; F17.200 Nicotine dependence, unspecified, uncomplicated
CPT/HCPCS: 73600; 96372; 99283; 99284; J1885

== ENCOUNTER 2022-11-07 04:55 | Emergency (ER) | payer OTHER, SELFPAY ==
[2022-11-07 04:59] VITALS: BP 122/69; PULSE 75; RESP 16; TEMP 36.6; O2SAT 97; BMI 22.0
[2022-11-07 05:07] VITALS: BP 119/74; PULSE 68; RESP 18; TEMP 37; O2SAT 98
--- NOTE | 2022-11-07 05:57 | PC.NURSE ---
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 pt stated that is getting late for him to go to work. pt left ambulatory independently alert and oriented no acute signs of distress notice breathing equally unlabored and nurse discharge made aware
== END 2022-11-07 05:59 | disposition left against medical advice (07) ==
PROVIDERS: Emergency Provider Emergency Medicine; PCP Internal Medicine
DX: M54.9 Dorsalgia, unspecified (principal); M79.606 Pain in leg, unspecified
CPT/HCPCS: 99282

== ENCOUNTER 2022-11-19 00:15 | Emergency (ER) | payer OTHER, SELFPAY ==
[2022-11-19 00:17] VITALS: BP 138/84; PULSE 89; RESP 18; TEMP 36.7; O2SAT 96; BMI 20.2
--- NOTE | 2022-11-19 00:38 | ED_ITS ---
HPI - Abdominal Pain General Chief Complaint: Abdominal Pain Stated Complaint: abd pain Time Seen by Provider: 11/19/22 00:31 Source: patient Mode of arrival: ambulatory Limitations: no limitations History of Present Illness HPI narrative: Patient history of chronic recurrent pancreatitis with severe alcohol use been here multiple times for with abdominal pain which is going on this time for 2 weeks no nausea no vomiting had alcohol today. No fever no chills no diarrhea Related Data Previous Rx's Medication Instructions Recorded cyclobenzaprine 10 mg tablet 10 mg PO TID PRN muscle pain or 09/21/21 spasm #20 tabs ketorolac 10 mg tablet 10 mg PO TID 5 days #15 tabs 09/21/21 cyclobenzaprine 10 mg tablet 10 mg PO TID PRN muscle spasm #14 12/03/21 tabs ibuprofen 600 mg tablet 600 mg PO TID PRN pain #14 tabs 12/03/21 cyclobenzaprine 10 mg tablet 10 mg PO TID PRN muscle spasm #10 12/27/21 tabs ibuprofen 600 mg tablet 600 mg PO Q6H PRN pain #20 tabs 12/27/21 benzocaine 10 % mucosal gel 1 appl mucous membrane QID PRN 02/08/22 (Anbesol (benzocaine)) mouth irritation #9 grams omeprazole magnesium 20 mg 20 mg PO BID #30 tabs 02/15/22 tablet,delayed release (Prilosec OTC) naproxen 500 mg tablet (Naprosyn) 500 mg PO BID #20 tabs 03/10/22 acetaminophen 500 mg tablet 500 mg PO Q6H PRN fever or pain 05/17/22 (Tylenol Extra Strength) #14 tabs lidocaine 5 % topical patch 1 patch topical DAILY PRN pain #30 05/17/22 (Lidoderm) ea naproxen 500 mg tablet 500 mg PO BID PRN pain 10 days #20 05/17/22 tabs ibuprofen 600 mg tablet 600 mg PO Q6H PRN pain #30 tabs 06/17/22 cyclobenzaprine 10 mg tablet 10 mg PO TID PRN muscle spasm #14 07/03/22 tabs cyclobenzaprine 10 mg tablet 10 mg PO Q8H #20 tabs 10/02/22 ibuprofen 600 mg tablet 600 mg PO Q6H PRN fever or pain 10/02/22 #30 tabs ketorolac 10 mg tablet 10 mg PO TID PRN pain 5 days #15 10/29/22 tabs prednisone 20 mg tablet 40 mg PO DAILY 5 days #10 tabs 10/29/22 Allergies Allergy/AdvReac Type Severity Reaction Status Date / Time Penicillins [PCN] Allergy Mild RASH Verified 10/02/22 01:22 silver AdvReac Intermediate rash Verified 10/02/22 01:22 [From TEGADERM AG MESH] Review of Systems Review of Systems Yes all other systems are reviewed and are negative COUNT INCLUDES [facility] Past Medical History Medical History Anxiety Bipolar 1 disorder Contusion Depression Foot drop, right foot Heart murmur Schizophrenia Surgical History No pertinent past surgical history Social History Social History Alcohol intake: current Alcohol intake frequency: a few times a week Alcohol type: beer and hard liquor Patient Tobacco Use Status: Current everyday Tobacco user Substance Use Type: Crack/Cocaine Advance Directives: No Advance Directives Information Provided: Yes Physical Exam ED Vital Signs: Vital Signs - 24 hr 11/19/22 00:17 Temperature 98.1 F Pulse Rate 89 Respiratory Rate 18 Blood Pressure 138/84 Pulse Oximetry 96 Oxygen Delivery Method Room Air BMI result Body Mass Index 20.2 Appearance: Alert. Oriented X3. No acute distress. ENT: Pharynx normal. Oral Mucosa moist Neck: Normal inspection. Neck supple. CVS: Normal heart rate and rhythm. Pulses normal. Respiratory: No respiratory distress. Equal air entry bilateral, no wheezing/rales/rhonchi Abdomen: Soft mid abdominal tenderness no rebound tenderness or guarding Bowel sounds are present, no mass palpable, no CVA tenderness Skin: Skin warm and dry. Normal skin color. Normal skin turgor. Extremities: No lower extremity edema. No calf tenderness Neuro: Oriented X 3. No motor deficit. Medical Decision Making Medical Decision Making [facility] Narrative: Patient with full substance abuse chronic pain alcohol use eating food in the ER no active vomiting labs are stable discharge patient home advised to follow detox Lab Data MDM Lab Attestation statement: I reviewed the patient's lab results. 11/19/22 00:40 11/19/22 00:40 Labs: Lab Results 11/19/22 11/19/22 11/19/22 Range/Units 00:40 00:40 00:40 WBC 7.8 (4.8-10.8) X10*3/uL RBC 4.27 L (4.60-5.80) X10*6/uL Hgb 13.8 L (14.0-18.0) g/dl Hct 39.4 L (42.0-52.0) % MCV 92.3 (80.0-98.0) fL MCH 32.3 (27.0-33.0) pg MCHC 35.0 (31.0-36.0) g/dl RDW 12.6 (11.0-16.0) % Plt Count 237 (160-400) X10*3/uL MPV 9.5 (9.4-12.4) fL Immature Gran % (Auto) 0.1 (0.0-0.4) % Neut % (Auto) 60.2 (45-73) % Lymph % (Auto) 33.8 (20-40) % Dickey % (Auto) 4.5 (2-11) % Eos % (Auto) 0.9 (0-4) % Baso % (Auto) 0.5 (0-2) % Lymph # (Auto) 2.6 (1.2-4.9) X10*3/uL Dickey # (Auto) 0.4 (0.1-1.2) X10*3/uL Eos # (Auto) 0.1 (0.0-0.4) X10*3/uL Baso # (Auto) 0.0 (0.0-0.2) X10*3/uL Abs Immat Gran (auto) 0.01 (0.00-0.03) X10*3/uL Absolute Neuts (auto) 4.7 (2.0-8.3) x10*3/uL Absolute Nucleated RBC 0.000 (0.0-0.012) X10*3/uL Nucleated RBC % (auto) 0.0 (0.0-0.2) /100WBC Sodium 137 (135-145) mmol/L Potassium 3.9 (3.3-5.1) mmol/L Chloride 105 (96-108) mmol/L Carbon Dioxide 23 (22-29) mmol/L Anion Gap 13 (12-20) BUN 7 L (9-16) mg/dL Creatinine 1.04 (0.5-1.4) mg/dL Estim Creat Clear Calc 83.3 Estimated GFR > 60 Random Glucose 102 (60-115) mg/dL Calcium 8.8 (8.4-10.2) mg/dL Total Bilirubin 0.4 (0.0-1.0) mg/dL AST 42 H (5-37) U/L ALT 60 H (0-40) U/L Alkaline Phosphatase 73 (39-117) U/L Total Protein 7.1 (6.5-8.0) g/dL Albumin 4.5 (3.5-5.0) g/dL Lipase 86 H (8-78) U/L Urine Color Yellow Urine Appearance Clear Urine pH 5.5 (5.0-9.0) Ur Specific [place] 1.015 (1.005-1.025) Urine Protein Negative (Neg-Trace) mg/dL Urine Glucose (UA) Negative (Negative) mg/dL Urine Ketones Negative (Negative) mg/dL Urine Blood Negative (Negative) Urine Nitrite Negative (Negative) Ur Leukocyte Esterase Negative (Negative) Urine Opiates Screen (Not Detect) Urine Fentanyl Screen (Not Detect) Ur Barbiturates Screen (Not Detect) Ur Phencyclidine Scrn (Not Detect) Ur Amphetamines Screen (Not Detect) U Benzodiazepines Scrn (Not Detect) Urine Cocaine Screen (Not Detect) U Marijuana (THC) Screen (Not Detect) 11/19/22 Range/Units 00:40 WBC (4.8-10.8) X10*3/uL RBC (4.60-5.80) X10*6/uL Hgb (14.0-18.0) g/dl Hct (42.0-52.0) % MCV (80.0-98.0) fL MCH (27.0-33.0) pg MCHC (31.0-36.0) g/dl RDW (11.0-16.0) % Plt Count (160-400) X10*3/uL MPV (9.4-12.4) fL Immature Gran % (Auto) (0.0-0.4) % Neut % (Auto) (45-73) % Lymph % (Auto) (20-40) % Dickey % (Auto) (2-11) % Eos % (Auto) (0-4) % Baso % (Auto) (0-2) % Lymph # (Auto) (1.2-4.9) X10*3/uL Dickey # (Auto) (0.1-1.2) X10*3/uL Eos # (Auto) (0.0-0.4) X10*3/uL Baso # (Auto) (0.0-0.2) X10*3/uL Abs Immat Gran (auto) (0.00-0.03) X10*3/uL Absolute Neuts (auto) (2.0-8.3) x10*3/uL Absolute Nucleated RBC (0.0-0.012) X10*3/uL Nucleated RBC % (auto) (0.0-0.2) /100WBC Sodium (135-145) mmol/L Potassium (3.3-5.1) mmol/L Chloride (96-108) mmol/L Carbon Dioxide (22-29) mmol/L Anion Gap (12-20) BUN (9-16) mg/dL Creatinine (0.5-1.4) mg/dL Estim Creat Clear Calc Estimated GFR Random Glucose (60-115) mg/dL Calcium (8.4-10.2) mg/dL Total Bilirubin (0.0-1.0) mg/dL AST (5-37) U/L ALT (0-40) U/L Alkaline Phosphatase (39-117) U/L Total Protein (6.5-8.0) g/dL Albumin (3.5-5.0) g/dL Lipase (8-78) U/L Urine Color Urine Appearance Urine pH (5.0-9.0) Ur Specific [place] (1.005-1.025) Urine Protein (Neg-Trace) mg/dL Urine Glucose (UA) (Negative) mg/dL Urine Ketones (Negative) mg/dL Urine Blood (Negative) Urine Nitrite (Negative) Ur Leukocyte Esterase (Negative) Urine Opiates Screen Not Detected (Not Detect) Urine Fentanyl Screen POSITIVE H (Not Detect) Ur Barbiturates Screen Not Detected (Not Detect) Ur Phencyclidine Scrn Not Detected (Not Detect) Ur Amphetamines Screen Not Detected (Not Detect) U Benzodiazepines Scrn Not Detected (Not Detect) Urine Cocaine Screen POSITIVE H (Not Detect) U Marijuana (THC) Screen POSITIVE H (Not Detect) Medications Administered Discontinued Medications Generic Name Dose Route Start Last Admin Trade Name Freq PRN Reason Stop Dose Admin Tramadol HCl 50 mg 11/19/22 00:43 11/19/22 00:47 Tramadol Hcl 50 Mg Tablet PO 11/19/22 00:44 50 mg ONCE ONE Administration Discharge Plan Discharge Clinical Impression: Chronic abdominal pain, Multiple substance abuse Patient Disposition: Home, Self-Care Instructions: Abdominal Pain (ED), Polysubstance Abuse (ED) Additional Instructions: Stop using fentanyl, cocaine and alcohol Follow-up with detox Prescriptions: No Action Anbesol (benzocaine) 10 % gel 1 appl mucous membrane QID PRN (Reason: mouth irritation) Qty: 9 0RF omeprazole magnesium [Prilosec OTC] 20 mg tablet,delayed release (DR/EC) 20 mg PO BID Qty: 30 0RF acetaminophen [Tylenol Extra Strength] 500 mg tablet 500 mg PO Q6H PRN (Reason: fever or pain) Qty: 14 0RF lidocaine [Lidoderm] 5 % adhesive patch,medicated 1 patch topical DAILY MDD remove after 12 hours PRN (Reason: pain) Qty: 30 0RF Rx Instructions: leave on most painful area for up to 12 hrs naproxen 500 mg tablet 500 mg PO BID PRN (Reason: pain) 10 Days Qty: 20 0RF ibuprofen 600 mg tablet 600 mg PO Q6H PRN (Reason: pain) Qty: 30 0RF ketorolac 10 mg tablet 10 mg PO TID PRN (Reason: pain) 5 Days Qty: 15 0RF Rx Instructions: Tolerated IM in the department prednisone 20 mg tablet 40 mg PO DAILY 5 Days Qty: 10 0RF cyclobenzaprine 10 mg tablet 10 mg PO TID PRN (Reason: muscle pain or spasm) Qty: 20 0RF ketorolac 10 mg tablet 10 mg PO TID 5 Days Qty: 15 0RF cyclobenzaprine 10 mg tablet 10 mg PO TID PRN (Reason: muscle spasm) Qty: 14 0RF Rx Instructions: Do not use before working with machinery or driving ibuprofen 600 mg tablet 600 mg PO TID PRN (Reason: pain) Qty: 14 0RF cyclobenzaprine 10 mg tablet 10 mg PO TID PRN (Reason: muscle spasm) Qty: 10 0RF ibuprofen 600 mg tablet 600 mg PO Q6H PRN (Reason: pain) Qty: 20 0RF naproxen [Naprosyn] 500 mg tablet 500 mg PO BID Qty: 20 0RF cyclobenzaprine 10 mg tablet 10 mg PO TID PRN (Reason: muscle spasm) Qty: 14 0RF cyclobenzaprine 10 mg tablet 10 mg PO Q8H Qty: 20 0RF ibuprofen 600 mg tablet 600 mg PO Q6H PRN (Reason: fever or pain) Qty: 30 0RF
[2022-11-19 00:45] LABS: MANUAL DIFF FLAG NO
[2022-11-19 00:47] LABS: Basophils Percent Auto 0.5 % (0-2); Eosinophils Absolute Auto 0.1 X10*3/uL (0.0-0.4); Eosinophils Percent Auto 0.9 % (0-4); Hematocrit 39.4 % (42.0-52.0); Hemoglobin 13.8 g/dl (14.0-18.0); Imm Gran Abs Auto 0.01 X10*3/uL (0.00-0.03); Imm Gran Pct Auto 0.1 % (0.0-0.4); Lymphocytes Absolute Auto 2.6 X10*3/uL (1.2-4.9); Lymphocytes Percent Auto 33.8 % (20-40); Mean Corpuscular Hemoglobin 32.3 pg (27.0-33.0); Mean Corpuscular Volume 92.3 fL (80.0-98.0); Mean Platelet Volume 9.5 fL (9.4-12.4); Monocytes Absolute Auto 0.4 X10*3/uL (0.1-1.2); Monocytes Percent Auto 4.5 % (2-11); Neutrophils Absolute Auto 4.7 x10*3/uL (2.0-8.3); Neutrophils Percent Auto 60.2 % (45-73); Platelet Count 237 X10*3/uL (160-400); Red Blood Count 4.27 X10*6/uL (4.60-5.80); Red Cell Distribution Width 12.6 % (11.0-16.0); White Blood Count 7.8 X10*3/uL (4.8-10.8)
[2022-11-19] MEDS: traMADoL HCL 50 MG TABLET PO (00:47)
[2022-11-19 00:54] LABS: Appearance Urine Clear; Color Urine Yellow; Glucose Urine UA Negative (Negative); Leukocyte Esterase Urine Negative (Negative); Nitrite Urine Negative (Negative); PH 5.5 (5.0-9.0); Specific Gravity - Urine 1.015 (1.005-1.025); Urine Blood Negative (Negative); Urine Ketones Negative (Negative); Urine Protein Negative (Neg-Trace)
[2022-11-19 00:58] LABS: Amphetamine Screen Urine Not Detected (Not Detect); Barbiturates, Urine Not Detected (Not Detect); Benzodiazepines Screen Urine Not Detected (Not Detect); Cannabinoid Screen Urine POSITIVE (Not Detect); Cocaine Screen Urine POSITIVE (Not Detect); Fentanyl, urine POSITIVE (Not Detect); Opiate Screen Urine Not Detected (Not Detect); Phencyclidine Screen Urine Not Detected (Not Detect)
[2022-11-19 01:15] LABS: Alanine Aminotransferase 60 U/L (0-40); Albumin Level 4.5 g/dL (3.5-5.0); Alkaline Phosphatase 73 U/L (39-117); Anion Gap 13 (12-20); Aspartate Amino Transferase 42 U/L (5-37); Bilirubin Total 0.4 mg/dL (0.0-1.0); Blood Urea Nitrogen 7 mg/dL (9-16); Calcium 8.8 mg/dL (8.4-10.2); Carbon Dioxide 23 mmol/L (22-29); Chloride 105 mmol/L (96-108); Creatinine Clr Calc Pharmacy 83.3; Estimated Glomerular Filt Rate > 60; Glucose Random 102 mg/dL (60-115); Lipase 86 U/L (8-78); Potassium 3.9 mmol/L (3.3-5.1); Sodium 137 mmol/L (135-145); Total Protein 7.1 g/dL (6.5-8.0)
== END 2022-11-19 01:48 | disposition home or self-care (01) ==
PROVIDERS: Emergency Provider Internal Medicine; PCP Internal Medicine
DX: R10.9 Unspecified abdominal pain (principal); F14.10 Cocaine abuse, uncomplicated; F12.10 Cannabis abuse, uncomplicated; F17.200 Nicotine dependence, unspecified, uncomplicated; Z71.6 Tobacco abuse counseling; Z79.899 Other long term (current) drug therapy
CPT/HCPCS: 36415; 80053; 80307; 81003; 83690; 85025; 99283

== ENCOUNTER 2022-11-28 23:07 | Emergency (ER) | payer OTHER, SELFPAY ==
[2022-11-28 23:18] VITALS: BP 135/90; PULSE 93; RESP 20; TEMP 36.8; O2SAT 96; BMI 20.5
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
--- NOTE | 2022-11-29 00:36 | PC.NURSE ---
Security at bedside for changeover, belongings secured.
[2022-11-29 01:05] LABS: Ethanol 102 mg/dL
[2022-11-29 01:22] LABS: COVID-19 Test Negative (Negative); IDNOW Serial# 16C4AD1C
[2022-11-29 02:03] LABS: Amphetamine Screen Urine Not Detected (Not Detect); Barbiturates, Urine Not Detected (Not Detect); Benzodiazepines Screen Urine Not Detected (Not Detect); Cannabinoid Screen Urine POSITIVE (Not Detect); Cocaine Screen Urine POSITIVE (Not Detect); Fentanyl, urine POSITIVE (Not Detect); Opiate Screen Urine POSITIVE (Not Detect); Phencyclidine Screen Urine Not Detected (Not Detect)
[2022-11-29] MEDS: Diphth,Pertus(ACell),Tet Adult 0.5 ML SYRINGE IM (02:13)
[2022-11-29] MEDS: Doxycycline Monohydrate 100 MG CAPSULE PO ×2 (02:13→12:07)
[2022-11-29 02:35] VITALS: BP 114/68; PULSE 83; RESP 18; TEMP 37.2; O2SAT 96
--- NOTE | 2022-11-29 07:14 | PC.NURSE ---
Patient resting comfortably no distress noted, tolerated PO food and drink. No complaint of chest pain or SOB, patient ambulates with steady gait neuros intact.
[2022-11-29 07:41] VITALS: BP 114/64; PULSE 68; RESP 16; TEMP 36.7; O2SAT 99
[2022-11-29 10:00] VITALS: BP 103/64; PULSE 66; RESP 16; TEMP 36.6; O2SAT 99
--- NOTE | 2022-11-29 10:45 | PC.NURSE ---
spoke with care team, pt will be seen by [facility] recovery operator-ana, later today
--- NOTE | 2022-11-29 10:52 | PC.NURSE ---
AOx3, vss stable. will continue to monitor
[2022-11-29] MEDS: Ibuprofen 800 MG TABLET PO (12:15)
[2022-11-29] MEDS: hydrOXYzine HCL 25 MG TABLET PO (12:16)
--- NOTE | 2022-11-29 12:18 | PC.NURSE ---
Addendum entered by Elisa Mackey 11/29/22 12:21: gave mediation for pain, pt states pain is through his whole body. Original Note: pt AOx3, medicated per order. left wrist redness and swelling has improved.
--- NOTE | 2022-11-29 14:09 | PC.NURSE ---
patient a&ox3, has been speaking with the assistant women's basketball coach, pt ambulating independently to bathroom, call hunter within reach, will continue to monitor
--- NOTE | 2022-11-29 16:36 | MHC.RECOVSUP ---
? Reason for consult:Recovery Support o Current location:ED2? o Identified substance use concern: DANIEL/Herione? - Seeking ATS (detox) - Support ? ?Intervention: o ATS bed search started/completed/in process o Community resources provided o Harm reduction discussion ? Additional information:?Consultation with team prior to entry. I connected with pt. and he stated he wanted detox so I called numerous facilities in and around the area. There were no beds available at [facility], [facility] declined his admittance and [facility] was willing to admit him. I sent over his report and about an hour an half later, Mimi from intake was able to speak with pt. Pt became inpatient with the process and refused to complete the intake.Pt. was discharged with community resources.
== END 2022-11-29 15:52 | disposition home or self-care (01) ==
PROVIDERS: Nurse Practitioner Family; Emergency Provider Internal Medicine; PCP Internal Medicine
DX: F20.9 Schizophrenia, unspecified (principal); F19.10 Other psychoactive substance abuse, uncomplicated; L03.114 Cellulitis of left upper limb; S60.512A Abrasion of left hand, initial encounter; S60.511A Abrasion of right hand, initial encounter; S00.81XA Abrasion of other part of head, initial encounter; Y04.2XXA Assault by strike against or bumped into by another person, initial encounter; Z20.822 Contact with and (suspected) exposure to COVID-19; F41.9 Anxiety disorder, unspecified; F31.9 Bipolar disorder, unspecified; I10 Essential (primary) hypertension; F17.200 Nicotine dependence, unspecified, uncomplicated; Y93.89 Activity, other specified; Y92.511 Restaurant or cafe as the place of occurrence of the external cause; Y99.9 Unspecified external cause status; Z79.899 Other long term (current) drug therapy
CPT/HCPCS: 36415; 80307; 82077; 87635; 90471; 90715; 99284

== ENCOUNTER 2022-12-06 00:52 | Emergency (ER) | payer OTHER, SELFPAY ==
[2022-12-06 00:55] VITALS: BP 137/91; PULSE 82; RESP 18; TEMP 36.7; O2SAT 97; BMI 19.8
[2022-12-06 01:59] LABS: MANUAL DIFF FLAG NO
[2022-12-06 02:00] LABS: Basophils Percent Auto 0.4 % (0-2); Eosinophils Absolute Auto 0.2 X10*3/uL (0.0-0.4); Eosinophils Percent Auto 2.1 % (0-4); Hematocrit 42.8 % (42.0-52.0); Hemoglobin 14.5 g/dl (14.0-18.0); Imm Gran Abs Auto 0.02 X10*3/uL (0.00-0.03); Imm Gran Pct Auto 0.2 % (0.0-0.4); Lymphocytes Absolute Auto 3.6 X10*3/uL (1.2-4.9); Lymphocytes Percent Auto 39.2 % (20-40); Mean Corpuscular HGB Conc 33.9 g/dl (31.0-36.0); Mean Corpuscular Hemoglobin 32.4 pg (27.0-33.0); Mean Corpuscular Volume 95.5 fL (80.0-98.0); Mean Platelet Volume 9.5 fL (9.4-12.4); Monocytes Absolute Auto 0.5 X10*3/uL (0.1-1.2); Monocytes Percent Auto 5.6 % (2-11); Neutrophils Absolute Auto 4.8 x10*3/uL (2.0-8.3); Neutrophils Percent Auto 52.5 % (45-73); Platelet Count 247 X10*3/uL (160-400); Red Blood Count 4.48 X10*6/uL (4.60-5.80); Red Cell Distribution Width 12.7 % (11.0-16.0); White Blood Count 9.1 X10*3/uL (4.8-10.8)
[2022-12-06 02:19] LABS: Alanine Aminotransferase 71 U/L (0-40); Albumin Level 4.5 g/dL (3.5-5.0); Alkaline Phosphatase 66 U/L (39-117); Anion Gap 16 (12-20); Aspartate Amino Transferase 48 U/L (5-37); Bilirubin Total 0.3 mg/dL (0.0-1.0); Blood Urea Nitrogen 8 mg/dL (9-16); Calcium 9.4 mg/dL (8.4-10.2); Carbon Dioxide 27 mmol/L (22-29); Chloride 103 mmol/L (96-108); Creatinine Clr Calc Pharmacy 75.9; Estimated Glomerular Filt Rate > 60; Glucose Random 76 mg/dL (60-115); Lipase 9 U/L (8-78); Potassium 4.4 mmol/L (3.3-5.1); Sodium 142 mmol/L (135-145); Total Protein 7.2 g/dL (6.5-8.0)
[2022-12-06] MEDS: Sucralfate Oral Suspension 1 GM/10 ML ORAL.SUSP PO (02:56)
[2022-12-06] MEDS: Lidocaine HCl Viscous 2 % 15 ML SOLUTION 10 ML MUCOUS MEM (02:57)
[2022-12-06] MEDS: Magnesium Hydrox/Alum Hydrox 30 ML ORAL.SUSP PO (02:57)
--- NOTE | 2022-12-06 03:05 | ED.ABDPAIN ---
HPI - Abdominal Pain General Chief Complaint: ETOH/Substance Use Stated Complaint: Pancreas pain? Time Seen by Provider: 12/06/22 01:38 Source: patient Mode of arrival: ambulatory History of Present Illness HPI narrative: 37-year-old male who presents with concerns that he may be having pancreatitis as he is having epigastric discomfort but denies any fever, chills, shortness of breath, chest pain/palpitations denies any GI or symptoms Related Data Previous Rx's Medication Instructions Recorded cyclobenzaprine 10 mg tablet 10 mg PO TID PRN muscle pain or 09/21/21 spasm #20 tabs ketorolac 10 mg tablet 10 mg PO TID 5 days #15 tabs 09/21/21 cyclobenzaprine 10 mg tablet 10 mg PO TID PRN muscle spasm #14 12/03/21 tabs ibuprofen 600 mg tablet 600 mg PO TID PRN pain #14 tabs 12/03/21 cyclobenzaprine 10 mg tablet 10 mg PO TID PRN muscle spasm #10 12/27/21 tabs ibuprofen 600 mg tablet 600 mg PO Q6H PRN pain #20 tabs 12/27/21 benzocaine 10 % mucosal gel 1 appl mucous membrane QID PRN 02/08/22 (Anbesol (benzocaine)) mouth irritation #9 grams omeprazole magnesium 20 mg 20 mg PO BID #30 tabs 02/15/22 tablet,delayed release (Prilosec OTC) naproxen 500 mg tablet (Naprosyn) 500 mg PO BID #20 tabs 03/10/22 acetaminophen 500 mg tablet 500 mg PO Q6H PRN fever or pain 05/17/22 (Tylenol Extra Strength) #14 tabs lidocaine 5 % topical patch 1 patch topical DAILY PRN pain #30 05/17/22 (Lidoderm) ea naproxen 500 mg tablet 500 mg PO BID PRN pain 10 days #20 05/17/22 tabs ibuprofen 600 mg tablet 600 mg PO Q6H PRN pain #30 tabs 06/17/22 cyclobenzaprine 10 mg tablet 10 mg PO TID PRN muscle spasm #14 07/03/22 tabs cyclobenzaprine 10 mg tablet 10 mg PO Q8H #20 tabs 10/02/22 ibuprofen 600 mg tablet 600 mg PO Q6H PRN fever or pain 10/02/22 #30 tabs ketorolac 10 mg tablet 10 mg PO TID PRN pain 5 days #15 10/29/22 tabs prednisone 20 mg tablet 40 mg PO DAILY 5 days #10 tabs 10/29/22 doxycycline monohydrate 100 mg 100 mg PO BID 10 days #20 caps 11/29/22 capsule Allergies Allergy/AdvReac Type Severity Reaction Status Date / Time Penicillins [PCN] Allergy Mild RASH Verified 11/28/22 23:22 silver AdvReac Intermediate rash Verified 11/28/22 23:22 [From [employer] MESH] Review of Systems Review of Systems Pertinent positives and negatives as stated in HPI [facility] Past Medical History Source: nursing notes reviewed Medical History Anxiety Bipolar 1 disorder Contusion Depression Foot drop, right foot Heart murmur Schizophrenia Surgical History No pertinent past surgical history Social History Social History Alcohol intake: current Alcohol intake frequency: a few times a week Alcohol type: beer and hard liquor Patient Tobacco Use Status: Current everyday Tobacco user Substance Use Type: Crack/Cocaine Advance Directives: No Physical Exam ED Vital Signs: Vital Signs - 24 hr 12/06/22 00:55 Temperature 98.0 F Pulse Rate 82 Respiratory Rate 18 Blood Pressure 137/91 H Pulse Oximetry 97 Oxygen Delivery Method Room Air BMI result Body Mass Index 19.8 VITAL SIGNS: Reviewed. GENERAL: Well developed, well nourished, in no acute distress. HEAD: Normocephalic/atraumatic EYES: PERRLA, EOMI LUNGS: Normal breath sounds. No adventitious sounds or accessory muscle use. SpO2<97> CARDIOVASCULAR: Regular rate and rhythm without noted murmurs ABDOMEN: Soft, mild tenderness sub palpation at the epigastric, non-distended with bowel sounds. NEUROLOGIC: Alert and oriented x 4. Strength and sensation to light touch were grossly intact x 4. Medical Decision Making Medical Decision Making MDM Narrative: 37-year-old male with history of gastritis but will evaluate for possible pancreatitis, basic labs. Patient is noted to be eating without difficulty both solids and liquids. He received a GI cocktail as well as Carafate. I re-evaluated his lab workup and my interpretation is gastritis and patient will be discharged to the waiting room pending discussion with the wrestling coach. He is otherwise medically cleared for this. Differential Diagnosis Differential Diagnoses: The differential diagnosis associated with the presentation includes Please see the discussion above Lab Data MDM Lab Attestation statement: I reviewed the patient's lab results. Please see the discussion above 12/06/22 01:55 12/06/22 01:55 Labs: Lab Results 12/06/22 12/06/22 Range/Units 01:55 01:55 WBC 9.1 (4.8-10.8) X10*3/uL RBC 4.48 L (4.60-5.80) X10*6/uL Hgb 14.5 (14.0-18.0) g/dl Hct 42.8 (42.0-52.0) % MCV 95.5 (80.0-98.0) fL MCH 32.4 (27.0-33.0) pg MCHC 33.9 (31.0-36.0) g/dl RDW 12.7 (11.0-16.0) % Plt Count 247 (160-400) X10*3/uL MPV 9.5 (9.4-12.4) fL Immature Gran % (Auto) 0.2 (0.0-0.4) % Neut % (Auto) 52.5 (45-73) % Lymph % (Auto) 39.2 (20-40) % Ogle % (Auto) 5.6 (2-11) % Eos % (Auto) 2.1 (0-4) % Baso % (Auto) 0.4 (0-2) % Lymph # (Auto) 3.6 (1.2-4.9) X10*3/uL Ogle # (Auto) 0.5 (0.1-1.2) X10*3/uL Eos # (Auto) 0.2 (0.0-0.4) X10*3/uL Baso # (Auto) 0.0 (0.0-0.2) X10*3/uL Abs Immat Gran (auto) 0.02 (0.00-0.03) X10*3/uL Absolute Neuts (auto) 4.8 (2.0-8.3) x10*3/uL Absolute Nucleated RBC 0.000 (0.0-0.012) X10*3/uL Nucleated RBC % (auto) 0.0 (0.0-0.2) /100WBC Sodium 142 (135-145) mmol/L Potassium 4.4 (3.3-5.1) mmol/L Chloride 103 (96-108) mmol/L Carbon Dioxide 27 (22-29) mmol/L Anion Gap 16 (12-20) BUN 8 L (9-16) mg/dL Creatinine 1.11 (0.5-1.4) mg/dL Estim Creat Clear Calc 75.9 Estimated GFR > 60 Random Glucose 76 (60-115) mg/dL Calcium 9.4 D (8.4-10.2) mg/dL Total Bilirubin 0.3 (0.0-1.0) mg/dL AST 48 H (5-37) U/L ALT 71 H (0-40) U/L Alkaline Phosphatase 66 (39-117) U/L Total Protein 7.2 (6.5-8.0) g/dL Albumin 4.5 (3.5-5.0) g/dL Lipase 9 (8-78) U/L External Record Review External record reviewed: Outpatient record and Prior outpatient labs Medications Administered Discontinued Medications Generic Name Dose Route Start Last Admin Trade Name Freq PRN Reason Stop Dose Admin Al Hydroxide/Mg Hydroxide 30 ml 12/06/22 01:39 12/06/22 02:57 Magnesium Hydrox/Alum Hydrox 30 Ml Oral.Susp PO 12/06/22 01:40 30 ml ONCE ONE Administration Lidocaine HCl 10 ml 12/06/22 01:39 12/06/22 02:57 Lidocaine Hcl Viscous 2 % 15 Ml Solution MUCOUS MEM 12/06/22 01:40 10 ml ONCE ONE Administration Sucralfate 1 gm 12/06/22 02:38 12/06/22 02:56 Sucralfate Oral Suspension 1 Gm/10 Ml Oral.Susp PO 12/06/22 02:39 1 gm ONCE ONE Administration Discharge Plan Discharge Clinical Impression: Gastritis, Substance use disorder Patient Disposition: Home, Self-Care Instructions: Gastritis (ED), Diet for Stomach Ulcers and Gastritis (ED), Polysubstance Abuse (ED) Additional Instructions: 1. Resume all home medications as prescribed. 2. Please wait for the wrestling coach to see you in the morning. You may wait in the waiting room. Return to the emergency room for any worsening symptoms. Prescriptions: No Action Anbesol (benzocaine) 10 % gel 1 appl mucous membrane QID PRN (Reason: mouth irritation) Qty: 9 0RF omeprazole magnesium [Prilosec OTC] 20 mg tablet,delayed release (DR/EC) 20 mg PO BID Qty: 30 0RF acetaminophen [Tylenol Extra Strength] 500 mg tablet 500 mg PO Q6H PRN (Reason: fever or pain) Qty: 14 0RF lidocaine [Lidoderm] 5 % adhesive patch,medicated 1 patch topical DAILY MDD remove after 12 hours PRN (Reason: pain) Qty: 30 0RF Rx Instructions: leave on most painful area for up to 12 hrs naproxen 500 mg tablet 500 mg PO BID PRN (Reason: pain) 10 Days Qty: 20 0RF ibuprofen 600 mg tablet 600 mg PO Q6H PRN (Reason: pain) Qty: 30 0RF ketorolac 10 mg tablet 10 mg PO TID PRN (Reason: pain) 5 Days Qty: 15 0RF Rx Instructions: Tolerated IM in the department prednisone 20 mg tablet 40 mg PO DAILY 5 Days Qty: 10 0RF doxycycline monohydrate 100 mg capsule 100 mg PO BID 10 Days Qty: 20 0RF cyclobenzaprine 10 mg tablet 10 mg PO TID PRN (Reason: muscle pain or spasm) Qty: 20 0RF ketorolac 10 mg tablet 10 mg PO TID 5 Days Qty: 15 0RF cyclobenzaprine 10 mg tablet 10 mg PO TID PRN (Reason: muscle spasm) Qty: 14 0RF Rx Instructions: Do not use before working with machinery or driving ibuprofen 600 mg tablet 600 mg PO TID PRN (Reason: pain) Qty: 14 0RF cyclobenzaprine 10 mg tablet 10 mg PO TID PRN (Reason: muscle spasm) Qty: 10 0RF ibuprofen 600 mg tablet 600 mg PO Q6H PRN (Reason: pain) Qty: 20 0RF naproxen [Naprosyn] 500 mg tablet 500 mg PO BID Qty: 20 0RF cyclobenzaprine 10 mg tablet 10 mg PO TID PRN (Reason: muscle spasm) Qty: 14 0RF cyclobenzaprine 10 mg tablet 10 mg PO Q8H Qty: 20 0RF ibuprofen 600 mg tablet 600 mg PO Q6H PRN (Reason: fever or pain) Qty: 30 0RF
[2022-12-06 03:42] VITALS: BP 116/58; PULSE 82; RESP 16; O2SAT 98
== END 2022-12-06 03:39 | disposition home or self-care (01) ==
PROVIDERS: Emergency Provider Student in an Organized Health Care Education/Training Program
DX: K29.00 Acute gastritis without bleeding (principal); F14.10 Cocaine abuse, uncomplicated; Z79.899 Other long term (current) drug therapy
CPT/HCPCS: 36415; 80053; 83690; 85025; 99284

== ENCOUNTER 2022-12-20 07:41 | Emergency (ER) | payer OTHER, SELFPAY ==
--- NOTE | ~2022-12-20 | XR_ITS ---
EXAMINATION: XR SHOULDER, RIGHT CLINICAL INFORMATION: Rule out fracture COMPARISON: None TECHNIQUE: Three views of the right shoulder. FINDINGS: No evidence of acute fracture or dislocation. Glenohumeral and acromioclavicular articulation is maintained. No abnormal soft tissue calcification. Intact right clavicle and ribs. XR/XR shoulder RT min 2V IMPRESSION: No evidence of acute fracture or dislocation.
[2022-12-20 07:47] VITALS: BP 128/84; PULSE 76; RESP 18; TEMP 36.7; O2SAT 99; BMI 22.4
--- NOTE | 2022-12-20 09:01 | ED_ITS ---
HPI - Extremity Problem General Chief complaint: Extremity Injury, Upper Stated complaint: R shoulder pain Time Seen by Provider: 12/20/22 08:23 Source: patient Mode of arrival: ambulatory Limitations: no limitations History of Present Illness HPI Narrative: Patient is a 37-year-old male who presents emergency department for evaluation of diffuse right shoulder pain. It is mostly felt to the top of the shoulder, and along the trapezius muscle. Reports onset of pain 1 month ago after he was lifting a heavy bag with cans over his right shoulder. Pain is made particularly worse by Rear shoulder extension, and overhead abduction. He is able to externally rotate the shoulder. Denies any numbness, tingling, cold sensation to the hand, neck pain. Related Data Previous Rx's Medication Instructions Recorded cyclobenzaprine 10 mg tablet 10 mg PO TID PRN muscle pain or 09/21/21 spasm #20 tabs ketorolac 10 mg tablet 10 mg PO TID 5 days #15 tabs 09/21/21 cyclobenzaprine 10 mg tablet 10 mg PO TID PRN muscle spasm #14 12/03/21 tabs ibuprofen 600 mg tablet 600 mg PO TID PRN pain #14 tabs 12/03/21 cyclobenzaprine 10 mg tablet 10 mg PO TID PRN muscle spasm #10 12/27/21 tabs ibuprofen 600 mg tablet 600 mg PO Q6H PRN pain #20 tabs 12/27/21 benzocaine 10 % mucosal gel 1 appl mucous membrane QID PRN 02/08/22 (Anbesol (benzocaine)) mouth irritation #9 grams omeprazole magnesium 20 mg 20 mg PO BID #30 tabs 02/15/22 tablet,delayed release (Prilosec OTC) naproxen 500 mg tablet (Naprosyn) 500 mg PO BID #20 tabs 03/10/22 acetaminophen 500 mg tablet 500 mg PO Q6H PRN fever or pain 05/17/22 (Tylenol Extra Strength) #14 tabs lidocaine 5 % topical patch 1 patch topical DAILY PRN pain #30 05/17/22 (Lidoderm) ea naproxen 500 mg tablet 500 mg PO BID PRN pain 10 days #20 05/17/22 tabs ibuprofen 600 mg tablet 600 mg PO Q6H PRN pain #30 tabs 06/17/22 cyclobenzaprine 10 mg tablet 10 mg PO TID PRN muscle spasm #14 07/03/22 tabs cyclobenzaprine 10 mg tablet 10 mg PO Q8H #20 tabs 10/02/22 ibuprofen 600 mg tablet 600 mg PO Q6H PRN fever or pain 10/02/22 #30 tabs ketorolac 10 mg tablet 10 mg PO TID PRN pain 5 days #15 10/29/22 tabs prednisone 20 mg tablet 40 mg PO DAILY 5 days #10 tabs 10/29/22 doxycycline monohydrate 100 mg 100 mg PO BID 10 days #20 caps 11/29/22 capsule cyclobenzaprine 10 mg tablet 10 mg PO TID PRN muscle spasm #14 12/20/22 tabs Allergies Allergy/AdvReac Type Severity Reaction Status Date / Time Penicillins [PCN] Allergy Mild RASH Verified 11/28/22 23:22 silver AdvReac Intermediate rash Verified 11/28/22 23:22 [From [employer] AG MESH] Review of Systems Review of Systems: Yes all other systems are reviewed and are negative [facility] Past Medical History Attestation statement: The following information was validated with the patient. Source: old records reviewed Medical History Anxiety Bipolar 1 disorder Contusion Depression Foot drop, right foot Heart murmur Schizophrenia Surgical History No pertinent past surgical history Social History Social History Alcohol intake: current Alcohol intake frequency: a few times a week Alcohol type: beer and hard liquor Patient Tobacco Use Status: Current everyday Tobacco user Substance Use Type: Crack/Cocaine Advance Directives: No Advance Directives Information Provided: Yes Physical Exam Vital Signs: Vital Signs: Last Vital Signs Temp 98.0 F 12/20/22 07:47 Pulse 76 12/20/22 07:47 Resp 18 12/20/22 07:47 BP 128/84 12/20/22 07:47 Pulse Ox 99 12/20/22 07:47 O2 Del Method 12/20/22 07:47 BMI result Body Mass Index 22.4 Appearance: Alert.?Oriented to person, place and time. No acute distress.?Normal affect. Neck: Normal inspection.? Neck supple.??No midline cervical spine tenderness, step-offs, deformities CVS: Heart sounds normal. Normal heart rate and rhythm.? Pulses normal.?? Respiratory: No respiratory distress.? Lung sounds clear to auscultation bilaterally?? Skin: Skin warm and dry.? Normal skin color.? Extremities: Near full active range of motion to right shoulder. Palpable tenderness along the trapezius muscle. No point tenderness over bicep tendon. No weakness. 2+ radial pulse bilaterally. Neuro: Moves all extremities spontaneously. Sensation intact bilaterally. Ambulates with normal steady gait. Medical Decision Making Medical Decision Making MDM Narrative: Patient is a 37-year-old male who presents emergency department for evaluation of right shoulder pain x1 month. Overall he is well-appearing. Extremity is neurovascularly intact distally. X-ray obtained reveals no acute fracture or dislocation. There is no weakness to the arm. Discussed with patient that it is not recommended to place arm in a sling, as immobilization of this joint may ultimately lead to decreased function and worsening of his symptoms. Discussed rest, ice, elevation, acetaminophen/ibuprofen, Flexeril, and outpatient follow- up with primary care provider. Patient verbalized understanding. Differential Diagnosis Differential Diagnoses: The differential diagnosis associated with the presentation includes (Fracture, dislocation, rotator cuff injury, shoulder strain, trapezius muscle strain, chronic myalgias) Independent Interpretation I performed an independent interpretation of an: Plain X-Ray (Have personally interpreted x-ray of the right shoulder and agree with radiologist impression) Radiology Impression Discussion of test interpretation with radiology: I have reviewed the radiologist's reading. Radiologist Impression: XR/XR shoulder RT min 2V IMPRESSION: No evidence of acute fracture or dislocation. Prescription Management I considered prescription management with: Pain Medication (As noted above) Discharge Plan Discharge Clinical Impression: Right shoulder strain Patient Disposition: Home, Self-Care Instructions: Muscle Strain (ED), R.I.C.E. Treatment (ED) Additional Instructions: You can take ibuprofen 200 mg, 3 tablets (600mg) every 6-8 hours as needed for pain, in addition to Tylenol 500 mg, 2 tablets (1,000mg) every 4-6 hours as needed for pain, but not to exceed 3 doses daily (3,000mg).? A prescription for muscle relaxant, Flexeril was sent to your pharmacy to use as needed every 8 hours for pain unrelieved by Tylenol or ibuprofen. This medication may make you drowsy, do not drive, drink alcohol, or work while taking this medication Follow-up with primary care provider for persistent symptoms. Prescriptions: New cyclobenzaprine 10 mg tablet 10 mg PO TID PRN (Reason: muscle spasm) Qty: 14 0RF No Action Anbesol (benzocaine) 10 % gel 1 appl mucous membrane QID PRN (Reason: mouth irritation) Qty: 9 0RF omeprazole magnesium [Prilosec OTC] 20 mg tablet,delayed release (DR/EC) 20 mg PO BID Qty: 30 0RF acetaminophen [Tylenol Extra Strength] 500 mg tablet 500 mg PO Q6H PRN (Reason: fever or pain) Qty: 14 0RF lidocaine [Lidoderm] 5 % adhesive patch,medicated 1 patch topical DAILY MDD remove after 12 hours PRN (Reason: pain) Qty: 30 0RF Rx Instructions: leave on most painful area for up to 12 hrs naproxen 500 mg tablet 500 mg PO BID PRN (Reason: pain) 10 Days Qty: 20 0RF ibuprofen 600 mg tablet 600 mg PO Q6H PRN (Reason: pain) Qty: 30 0RF ketorolac 10 mg tablet 10 mg PO TID PRN (Reason: pain) 5 Days Qty: 15 0RF Rx Instructions: Tolerated IM in the department prednisone 20 mg tablet 40 mg PO DAILY 5 Days Qty: 10 0RF doxycycline monohydrate 100 mg capsule 100 mg PO BID 10 Days Qty: 20 0RF cyclobenzaprine 10 mg tablet 10 mg PO TID PRN (Reason: muscle pain or spasm) Qty: 20 0RF ketorolac 10 mg tablet 10 mg PO TID 5 Days Qty: 15 0RF cyclobenzaprine 10 mg tablet 10 mg PO TID PRN (Reason: muscle spasm) Qty: 14 0RF Rx Instructions: Do not use before working with machinery or driving ibuprofen 600 mg tablet 600 mg PO TID PRN (Reason: pain) Qty: 14 0RF cyclobenzaprine 10 mg tablet 10 mg PO TID PRN (Reason: muscle spasm) Qty: 10 0RF ibuprofen 600 mg tablet 600 mg PO Q6H PRN (Reason: pain) Qty: 20 0RF naproxen [Naprosyn] 500 mg tablet 500 mg PO BID Qty: 20 0RF cyclobenzaprine 10 mg tablet 10 mg PO TID PRN (Reason: muscle spasm) Qty: 14 0RF cyclobenzaprine 10 mg tablet 10 mg PO Q8H Qty: 20 0RF ibuprofen 600 mg tablet 600 mg PO Q6H PRN (Reason: fever or pain) Qty: 30 0RF Referrals: Physician,Unknown J [Primary Care Provider] -
--- NOTE | 2022-12-20 09:26 | PC.NURSE ---
PT CONFRONTATIONAL WITH STAFF HE IS STATING COMPLAINTS ABOUT NOT GETTING BREAKFAST OFFERED. HE HAS BEEN SEEN AND IS READY FOR DISCHARGE. 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 HE WAS IS MOVING HIS SHOULDER WITHOUT GUARDING OR OUTWARD DISTRESS.
== END 2022-12-20 09:30 | disposition home or self-care (01) ==
PROVIDERS: Emergency Provider Emergency Medicine
DX: S46.911A Strain of unspecified muscle, fascia and tendon at shoulder and upper arm level, right arm, initial encounter (principal); X50.0XXA Overexertion from strenuous movement or load, initial encounter; X50.9XXA Other and unspecified overexertion or strenuous movements or postures, initial encounter; Y93.9 Activity, unspecified; Y92.9 Unspecified place or not applicable; Y99.9 Unspecified external cause status; Z79.899 Other long term (current) drug therapy
CPT/HCPCS: 73030; 99282

== ENCOUNTER 2022-12-27 09:27 | Emergency (ER) | payer OTHER, SELFPAY ==
[2022-12-27 09:31] VITALS: BP 127/61; PULSE 81; RESP 18; TEMP 36.6; O2SAT 100; BMI 24.6
--- NOTE | 2022-12-27 09:35 | ED.EXTPRO ---
HPI - Extremity Problem General Chief complaint: Extremity Injury, Upper Stated complaint: Shoulder pain Time Seen by Provider: 12/27/22 09:34 Source: patient Mode of arrival: ambulatory Limitations: no limitations History of Present Illness HPI Narrative: Patient is a 37-year-old male who presents emergency department for evaluation of diffuse right shoulder pain.? It is mostly felt to the top of the shoulder, and along the trapezius muscle.? Reports onset of pain approximately 5 weeks ago after he was lifting a heavy bag with cans over his right shoulder.? Pain is made particularly worse by Rear shoulder extension, and overhead abduction.? He is able to externally rotate the shoulder.? Denies any numbness, tingling, cold sensation to the hand, neck pain. Was seen here 1 week ago for the same, has ran out of cyclobenzaprine that was prescribed, this did help his pain however he would like a prescription for 20 or 30mg instead Related Data Previous Rx's Medication Instructions Recorded cyclobenzaprine 10 mg tablet 10 mg PO TID PRN muscle pain or 09/21/21 spasm #20 tabs ketorolac 10 mg tablet 10 mg PO TID 5 days #15 tabs 09/21/21 cyclobenzaprine 10 mg tablet 10 mg PO TID PRN muscle spasm #14 12/03/21 tabs ibuprofen 600 mg tablet 600 mg PO TID PRN pain #14 tabs 12/03/21 cyclobenzaprine 10 mg tablet 10 mg PO TID PRN muscle spasm #10 12/27/21 tabs ibuprofen 600 mg tablet 600 mg PO Q6H PRN pain #20 tabs 12/27/21 benzocaine 10 % mucosal gel 1 appl mucous membrane QID PRN 02/08/22 (Anbesol (benzocaine)) mouth irritation #9 grams omeprazole magnesium 20 mg 20 mg PO BID #30 tabs 02/15/22 tablet,delayed release (Prilosec OTC) naproxen 500 mg tablet (Naprosyn) 500 mg PO BID #20 tabs 03/10/22 acetaminophen 500 mg tablet 500 mg PO Q6H PRN fever or pain 05/17/22 (Tylenol Extra Strength) #14 tabs lidocaine 5 % topical patch 1 patch topical DAILY PRN pain #30 05/17/22 (Lidoderm) ea naproxen 500 mg tablet 500 mg PO BID PRN pain 10 days #20 05/17/22 tabs ibuprofen 600 mg tablet 600 mg PO Q6H PRN pain #30 tabs 06/17/22 cyclobenzaprine 10 mg tablet 10 mg PO TID PRN muscle spasm #14 07/03/22 tabs cyclobenzaprine 10 mg tablet 10 mg PO Q8H #20 tabs 10/02/22 ibuprofen 600 mg tablet 600 mg PO Q6H PRN fever or pain 10/02/22 #30 tabs ketorolac 10 mg tablet 10 mg PO TID PRN pain 5 days #15 10/29/22 tabs prednisone 20 mg tablet 40 mg PO DAILY 5 days #10 tabs 10/29/22 doxycycline monohydrate 100 mg 100 mg PO BID 10 days #20 caps 11/29/22 capsule cyclobenzaprine 10 mg tablet 10 mg PO TID PRN muscle spasm #14 12/20/22 tabs cyclobenzaprine 10 mg tablet 10 mg PO TID PRN muscle spasm #10 12/27/22 tabs lidocaine 5 % topical patch 1 patch topical DAILY #15 ea 12/27/22 (Lidoderm) Allergies Allergy/AdvReac Type Severity Reaction Status Date / Time Penicillins [PCN] Allergy Mild RASH Verified 11/28/22 23:22 silver AdvReac Intermediate rash Verified 11/28/22 23:22 [From TEGADERM AG MESH] Review of Systems Review of Systems: Yes all other systems are reviewed and are negative [facility] Past Medical History Attestation statement: The following information was validated with the patient. Source: old records reviewed Medical History Anxiety Bipolar 1 disorder Contusion Depression Foot drop, right foot Heart murmur Schizophrenia Surgical History No pertinent past surgical history Social History Social History Alcohol intake: current Alcohol intake frequency: a few times a week Alcohol type: beer and hard liquor Patient Tobacco Use Status: Current everyday Tobacco user Substance Use Type: Crack/Cocaine Advance Directives: No Advance Directives Information Provided: Yes Physical Exam Vital Signs: Vital Signs: Last Vital Signs Temp 98 F 12/27/22 09:31 Pulse 81 02/26/23 09:31 Resp 18 12/27/22 09:31 BP 127/61 12/27/22 09:31 Pulse Ox 100 12/27/22 09:31 O2 Del Method 12/27/22 09:31 BMI result Body Mass Index 24.6 Appearance:?Alert.?Oriented? to person, place and time. No acute distress.?Normal affect. Neck:?Normal inspection.? Neck supple.??No midline cervical spine tenderness, step-offs, deformities CVS:? Heart sounds normal. Normal heart rate and rhythm.? Pulses normal.?? Respiratory:?No respiratory distress.? Lung sounds clear to auscultation bilaterally?? Skin:?Skin warm and dry.? Normal skin color.? Extremities:? Mild decreased AROM with with shoulder extension overhead abduction to right shoulder.? Able to externally rotate. Palpable tenderness along the trapezius muscle.? No point tenderness over bicep tendon.? No weakness.? 2+ radial pulse bilaterally. Neuro:?Moves all extremities spontaneously. Sensation intact bilaterally.? Ambulates with normal steady gait. Medical Decision Making Medical Decision Making MDM Narrative: Patient is a 37-year-old male who presents emergency department for evaluation of right shoulder pain with onset 5 weeks ago? Overall he is well-appearing.? Extremity is neurovascularly intact distally.? Patient was seen in the emergency department 12/20/2022 an x-ray at that time revealed no acute fracture dislocation, there is no weakness to the arm, he does have some decreased range of motion as noted in physical examination. He has not followed up with his primary care provider regarding this, has not called to make an appointment as he has not had time . Discussed with patient, will prescribe short course of cyclobenzaprine 10mg tablet and lidoderm patches and provide him with contact information for orthopedics to follow-up, he demands that I make this appointment for him. Advised that he will need to call the office himself tomorrow when they are open to arrange for follow-up. Departed in stable condition. Differential Diagnosis Differential Diagnoses: The differential diagnosis associated with the presentation includes (Rotator cuff injury, shoulder strain, trapezius muscle strain, chronic myalgias) Tests considered The following testing was considered but not selected: I considered XR imaging, however recent x-ray obtained 12/20/2022 without evidence of acute findings. Considered additional imaging such as MRI, at this time no indication for emergent MRI. Discharge Plan Discharge Clinical Impression: Muscle strain of right shoulder Patient Disposition: Home, Self-Care Additional Instructions: You can take ibuprofen 200 mg, 3 tablets (600mg) every 6-8 hours as needed for pain, in addition to Tylenol 500 mg, 2 tablets (1,000mg) every 4-6 hours as needed for pain, but not to exceed 3 doses daily (3,000mg).? Engage in gentle stretching exercises to the right shoulder. Apply lidoderm patches daily for 12 hours. A prescription for cyclobenzaprine was sent to your pharmacy, for a short course As we discussed, given that this is an ongoing problem, it is most appropriate at this time for you to follow-up with either your primary care provider, or the orthopedic office. You have been provided with the contact information for the orthopedic office. Please call them first thing Wednesday morning to arrange for follow-up. Prescriptions: New cyclobenzaprine 10 mg tablet 10 mg PO TID PRN (Reason: muscle spasm) Qty: 10 0RF lidocaine [Lidoderm] 5 % adhesive patch,medicated 1 patch topical DAILY Qty: 15 0RF Rx Instructions: leave on most painful area for up to 12 hrs No Action Anbesol (benzocaine) 10 % gel 1 appl mucous membrane QID PRN (Reason: mouth irritation) Qty: 9 0RF omeprazole magnesium [Prilosec OTC] 20 mg tablet,delayed release (DR/EC) 20 mg PO BID Qty: 30 0RF acetaminophen [Tylenol Extra Strength] 500 mg tablet 500 mg PO Q6H PRN (Reason: fever or pain) Qty: 14 0RF lidocaine [Lidoderm] 5 % adhesive patch,medicated 1 patch topical DAILY MDD remove after 12 hours PRN (Reason: pain) Qty: 30 0RF Rx Instructions: leave on most painful area for up to 12 hrs naproxen 500 mg tablet 500 mg PO BID PRN (Reason: pain) 10 Days Qty: 20 0RF ibuprofen 600 mg tablet 600 mg PO Q6H PRN (Reason: pain) Qty: 30 0RF ketorolac 10 mg tablet 10 mg PO TID PRN (Reason: pain) 5 Days Qty: 15 0RF Rx Instructions: Tolerated IM in the department prednisone 20 mg tablet 40 mg PO DAILY 5 Days Qty: 10 0RF doxycycline monohydrate 100 mg capsule 100 mg PO BID 10 Days Qty: 20 0RF cyclobenzaprine 10 mg tablet 10 mg PO TID PRN (Reason: muscle pain or spasm) Qty: 20 0RF ketorolac 10 mg tablet 10 mg PO TID 5 Days Qty: 15 0RF cyclobenzaprine 10 mg tablet 10 mg PO TID PRN (Reason: muscle spasm) Qty: 14 0RF Rx Instructions: Do not use before working with machinery or driving ibuprofen 600 mg tablet 600 mg PO TID PRN (Reason: pain) Qty: 14 0RF cyclobenzaprine 10 mg tablet 10 mg PO TID PRN (Reason: muscle spasm) Qty: 10 0RF ibuprofen 600 mg tablet 600 mg PO Q6H PRN (Reason: pain) Qty: 20 0RF naproxen [Naprosyn] 500 mg tablet 500 mg PO BID Qty: 20 0RF cyclobenzaprine 10 mg tablet 10 mg PO TID PRN (Reason: muscle spasm) Qty: 14 0RF cyclobenzaprine 10 mg tablet 10 mg PO Q8H Qty: 20 0RF ibuprofen 600 mg tablet 600 mg PO Q6H PRN (Reason: fever or pain) Qty: 30 0RF cyclobenzaprine 10 mg tablet 10 mg PO TID PRN (Reason: muscle spasm) Qty: 14 0RF Referrals: Kaylie Giron PA-C [[facility]] -
== END 2022-12-27 10:05 | disposition home or self-care (01) ==
LOC: HO.ED 09:59
PROVIDERS: Emergency Provider Emergency Medicine
DX: S46.911A Strain of unspecified muscle, fascia and tendon at shoulder and upper arm level, right arm, initial encounter (principal); X50.0XXA Overexertion from strenuous movement or load, initial encounter; X50.9XXA Other and unspecified overexertion or strenuous movements or postures, initial encounter; Y93.9 Activity, unspecified; Y92.9 Unspecified place or not applicable; Y99.9 Unspecified external cause status; Z79.899 Other long term (current) drug therapy
CPT/HCPCS: 99283

== ENCOUNTER 2022-12-31 07:21 | Emergency (ER) | payer OTHER, SELFPAY ==
--- NOTE | 2022-12-31 08:48 | PC.NURSE ---
PT SIGNED IN AT 0725 AND TOLD REGISTRATION/[facility] THAT HE NEEDED TO BE SEEN BY 8AM. PT LEFT WITH ED WITHIN SHORT TIME FRAME.
== END 2022-12-31 08:20 | disposition left against medical advice (07) ==
LOC: HO.ED 08:23
PROVIDERS: Emergency Provider Emergency Medicine
DX: R07.9 Chest pain, unspecified (principal)

== ENCOUNTER 2023-01-23 19:07 | Emergency (ER) | payer OTHER, SELFPAY ==
--- NOTE | ~2023-01-23 | XR_ITS ---
EXAMINATION: XR KNEE, LEFT CLINICAL INFORMATION: Left knee pain COMPARISON: None available. TECHNIQUE: Four views of the left knee. FINDINGS: Bones and soft tissues are normal. No fracture or joint effusion. Alignment is anatomic. Joint spaces are well maintained. No abnormal soft tissue calcification. XR/XR knee LT 3V IMPRESSION: Normal left knee.
[2023-01-23 19:14] VITALS: BP 130/73; PULSE 86; RESP 18; TEMP 36.6; O2SAT 99; BMI 25.0
--- NOTE | 2023-01-23 19:14 | ED.BACK ---
HPI - Back Pain/Injury General Chief Complaint: Back Pain/Injury <RADHA Lim - Last Filed: 01/23/23 19:17> Stated Complaint: back pain <RADHA Lim - Last Filed: 01/23/23 19:17> Time Seen by Provider: 01/23/23 19:54 <RADHA Lim - Last Filed: 01/23/23 19:17> Source: patient <Taryn Cesar MD - Last Filed: 01/23/23 20:03> Mode of arrival: ambulatory <Taryn Cesar MD - Last Filed: 01/23/23 20:03> Limitations: no limitations <Taryn Cesar MD - Last Filed: 01/23/23 20:03> History of Present Illness HPI Narrative: Patient comes emergency room complaining of chronic left shoulder and knee pain. Patient denies any injury. Patient states that hurting for over a month. Patient recently was discharged from detox. <Taryn Cesar MD - Last Filed: 01/23/23 20:03> Related Data Home Medications: Previous Rx's Medication Instructions Recorded cyclobenzaprine 10 mg tablet 10 mg PO TID PRN muscle pain or 09/21/21 spasm #20 tabs ketorolac 10 mg tablet 10 mg PO TID 5 days #15 tabs 09/21/21 cyclobenzaprine 10 mg tablet 10 mg PO TID PRN muscle spasm #14 12/03/21 tabs ibuprofen 600 mg tablet 600 mg PO TID PRN pain #14 tabs 12/03/21 cyclobenzaprine 10 mg tablet 10 mg PO TID PRN muscle spasm #10 12/27/21 tabs ibuprofen 600 mg tablet 600 mg PO Q6H PRN pain #20 tabs 12/27/21 benzocaine 10 % mucosal gel 1 appl mucous membrane QID PRN 02/08/22 (Anbesol (benzocaine)) mouth irritation #9 grams omeprazole magnesium 20 mg 20 mg PO BID #30 tabs 02/15/22 tablet,delayed release (Prilosec OTC) naproxen 500 mg tablet (Naprosyn) 500 mg PO BID #20 tabs 03/10/22 acetaminophen 500 mg tablet 500 mg PO Q6H PRN fever or pain 05/17/22 (Tylenol Extra Strength) #14 tabs lidocaine 5 % topical patch 1 patch topical DAILY PRN pain #30 05/17/22 (Lidoderm) ea naproxen 500 mg tablet 500 mg PO BID PRN pain 10 days #20 05/17/22 tabs ibuprofen 600 mg tablet 600 mg PO Q6H PRN pain #30 tabs 06/17/22 cyclobenzaprine 10 mg tablet 10 mg PO TID PRN muscle spasm #14 07/03/22 tabs cyclobenzaprine 10 mg tablet 10 mg PO Q8H #20 tabs 10/02/22 ibuprofen 600 mg tablet 600 mg PO Q6H PRN fever or pain 10/02/22 #30 tabs ketorolac 10 mg tablet 10 mg PO TID PRN pain 5 days #15 10/29/22 tabs prednisone 20 mg tablet 40 mg PO DAILY 5 days #10 tabs 10/29/22 doxycycline monohydrate 100 mg 100 mg PO BID 10 days #20 caps 11/29/22 capsule cyclobenzaprine 10 mg tablet 10 mg PO TID PRN muscle spasm #14 12/20/22 tabs cyclobenzaprine 10 mg tablet 10 mg PO TID PRN muscle spasm #10 12/27/22 tabs lidocaine 5 % topical patch 1 patch topical DAILY #15 ea 12/27/22 (Lidoderm) ibuprofen 400 mg tablet 400 mg PO Q8H PRN fever or pain 01/23/23 #14 tabs <RADHA iLm - Last Filed: 01/23/23 19:17> Allergies/Adverse Reactions: Allergies Allergy/AdvReac Type Severity Reaction Status Date / Time Penicillins [PCN] Allergy Mild RASH Verified 11/28/22 23:22 silver AdvReac Intermediate rash Verified 11/28/22 23:22 [From TEGADERM AG MESH] <RADHA Lim - Last Filed: 01/23/23 19:17> Review of Systems Review of Systems: Constitutional : No Weight loss, No Fever, No Chills, No Night Sweats, No Fatigue, No Malaise ENT/Mouth : No Hearing loss, No Ear Pain, No Nasal Congestion, No Sinus Pain, No Hoarseness, No sore throat, No Rhinorrhea, No Swallowing Difficulty Eyes: No Eye Pain, No Swelling, No Redness, No Foreign Body, No Discharge, No Vision Changes Cardiovascular : No Chest Pain, No SOB, No Dyspnea on Exertion, No Orthopnea, No Edema, No Palpitations Respiratory : No Cough, No Sputum, No Wheezing, No Smoke Exposure, No Dyspnea Gastrointestinal : No Nausea, No Vomiting, No Diarrhea, No Constipation, No abdominal Pain, No Hematochezia, No Melena Genitourinary : no irregular bleeding, No Dysuria, No Urinary Frequency, No Hematuria, No Urinary Incontinence, No Urgency, No Flank Pain, No Urinary Flow Changes, No Hesitancy Musculoskeletal : Patient complaining of chronic back pain, left knee pain, left shoulder pain, no injury, No Myalgias, No Joint Swelling Skin : No Skin Lesions, No rash Neuro : No Weakness, No Numbness, No Paresthesias, No Loss of Consciousness, No Dizziness, No Headache Psych : No Anxiety/Panic, No Depression, No SI/HI/AH/VH, No Social Issues, Heme/Lymph: No Bruising, No Bleeding,No Lymphadenopathy Endocrine : No Polyuria, No Polydipsia, No Temperature Intolerance <Taryn Cesar MD - Last Filed: 01/23/23 20:03> [facility] Past Medical History Medical History: Medical History Anxiety Bipolar 1 disorder Contusion Depression Foot drop, right foot Heart murmur Schizophrenia <RADHA Lim - Last Filed: 01/23/23 19:17> Surgical History: Surgical History No pertinent past surgical history <RADHA Lim - Last Filed: 01/23/23 19:17> Social History Social History: Social History Alcohol intake: current Alcohol intake frequency: a few times a week Alcohol type: beer and hard liquor Patient Tobacco Use Status: Current everyday Tobacco user Substance Use Type: Crack/Cocaine <RADHA Lim - Last Filed: 01/23/23 19:17> Physical Exam Vital Signs: Vital Signs: Last Vital Signs Temp 97.9 F 01/23/23 19:14 Pulse 86 01/23/23 19:14 Resp 18 01/23/23 19:14 BP 130/73 01/23/23 19:14 Pulse Ox 99 01/23/23 19:14 O2 Del Method Room Air 01/23/23 19:14 BMI result Body Mass Index 25.0 <RADHA Lim - Last Filed: 01/23/23 19:17> Vital Signs: Last Vital Signs Temp 97.9 F 01/23/23 19:14 Pulse 86 01/23/23 19:14 Resp 18 01/23/23 19:14 BP 130/73 01/23/23 19:14 Pulse Ox 99 01/23/23 19:14 O2 Del Method Room Air 01/23/23 19:14 BMI result Body Mass Index 25.0 <Taryn Cesar MD - Last Filed: 01/23/23 20:03> Const: Other: Appearance: Alert. Oriented X3. No acute distress. Eyes: Pupils equal, round and reactive to light. ENT: Pharynx normal. Neck: Normal inspection. Neck supple. No lymph nodes noted. No crepitus CVS: Normal heart rate and rhythm. Pulses normal. Normal S1 and S2 Respiratory: No respiratory distress. Breath sounds normal. No Wheezing. No rales Abdomen: Soft and nontender. No rigidity. No distention. Skin: Skin warm and dry. Normal skin color. Normal skin turgor. Extremities: No lower extremity edema. No Lacerations. No Rash patient able to flex extend bilateral knees with normal range of motion, patient able to abduct both arms to 180 degrees. Cross-sectional extension of the back. No pain to palpation over the cervical/thoracic/lumbar spine. Neuro: Oriented X 3. No motor deficit. No sensory deficit. Moving all extremities. No slurred speech. CN 2 through 12 grossly intact Psych: calm, cooperative, normal affect <Taryn Cesar MD - Last Filed: 01/23/23 20:03> Course Course Course Narrative: RME--37yo M w/PMHx HTN, substance abuse, HTN, schizophrenia presenting to ED complaining of back and left knee pain x3 days. Reports recently got out of detox. Denies injury, fall, incontinence/retention Ambulating with steady gait. No midline spinous tenderness. Left knee without noted deformity, mild proximal tenderness X-ray ordered <RADHA Lim - Last Filed: 01/23/23 19:17> Medical Decision Making Medical Decision Making MDM Narrative: -patient's knee x-ray is unremarkable. -patient has chronic pain, discussed with the patient that if his shoulder keeps hurting, he needs to follow up with Orthopedics, it may be worth doing an MRI to rule out a rotator cuff injury or tendinous injury. -patient states that he feels well, patient requesting to be discharged home with several sandwiches and Jell-O <Taryn Cesar MD - Last Filed: 01/23/23 20:03> Differential Diagnosis Differential Diagnoses: The differential diagnosis associated with the presentation includes (Chronic pain syndrome, bursitis, tendonitis) <Taryn Cesar MD - Last Filed: 01/23/23 20:03> Radiology Impression Discussion of test interpretation with radiology: I have reviewed the radiologist's reading. <Taryn Cesar MD - Last Filed: 01/23/23 20:03> Radiologist Impression: Bones and soft tissues are normal. No fracture or joint effusion. Alignment is anatomic. Joint spaces are well maintained. No abnormal soft tissue calcification.? XR/XR knee LT 3V IMPRESSION: Normal left knee. <Taryn Cesar MD - Last Filed: 01/23/23 20:03> Discharge Plan Discharge Clinical Impression: Arthralgia <RADHA Lim - Last Filed: 01/23/23 19:17> Patient Disposition: Home, Self-Care <RADHA Lim - Last Filed: 01/23/23 19:17> Instructions: Arthralgia (ED), Shoulder Pain (ED) <RADHA Lim - Last Filed: 01/23/23 19:17> Additional Instructions: Please follow-up with your primary care physician tomorrow. If you have any worsening or new symptoms, please return to the emergency room or call 911 <RADHA Lim - Last Filed: 01/23/23 19:17> Prescriptions: New ibuprofen 400 mg tablet 400 mg PO Q8H PRN (Reason: fever or pain) Qty: 14 0RF No Action Anbesol (benzocaine) 10 % gel 1 appl mucous membrane QID PRN (Reason: mouth irritation) Qty: 9 0RF omeprazole magnesium [Prilosec OTC] 20 mg tablet,delayed release (DR/EC) 20 mg PO BID Qty: 30 0RF acetaminophen [Tylenol Extra Strength] 500 mg tablet 500 mg PO Q6H PRN (Reason: fever or pain) Qty: 14 0RF lidocaine [Lidoderm] 5 % adhesive patch,medicated 1 patch topical DAILY MDD remove after 12 hours PRN (Reason: pain) Qty: 30 0RF Rx Instructions: leave on most painful area for up to 12 hrs naproxen 500 mg tablet 500 mg PO BID PRN (Reason: pain) 10 Days Qty: 20 0RF ibuprofen 600 mg tablet 600 mg PO Q6H PRN (Reason: pain) Qty: 30 0RF ketorolac 10 mg tablet 10 mg PO TID PRN (Reason: pain) 5 Days Qty: 15 0RF Rx Instructions: Tolerated IM in the department prednisone 20 mg tablet 40 mg PO DAILY 5 Days Qty: 10 0RF doxycycline monohydrate 100 mg capsule 100 mg PO BID 10 Days Qty: 20 0RF cyclobenzaprine 10 mg tablet 10 mg PO TID PRN (Reason: muscle spasm) Qty: 10 0RF lidocaine [Lidoderm] 5 % adhesive patch,medicated 1 patch topical DAILY Qty: 15 0RF Rx Instructions: leave on most painful area for up to 12 hrs cyclobenzaprine 10 mg tablet 10 mg PO TID PRN (Reason: muscle pain or spasm) Qty: 20 0RF ketorolac 10 mg tablet 10 mg PO TID 5 Days Qty: 15 0RF cyclobenzaprine 10 mg tablet 10 mg PO TID PRN (Reason: muscle spasm) Qty: 14 0RF Rx Instructions: Do not use before working with machinery or driving ibuprofen 600 mg tablet 600 mg PO TID PRN (Reason: pain) Qty: 14 0RF cyclobenzaprine 10 mg tablet 10 mg PO TID PRN (Reason: muscle spasm) Qty: 10 0RF ibuprofen 600 mg tablet 600 mg PO Q6H PRN (Reason: pain) Qty: 20 0RF naproxen [Naprosyn] 500 mg tablet 500 mg PO BID Qty: 20 0RF cyclobenzaprine 10 mg tablet 10 mg PO TID PRN (Reason: muscle spasm) Qty: 14 0RF cyclobenzaprine 10 mg tablet 10 mg PO Q8H Qty: 20 0RF ibuprofen 600 mg tablet 600 mg PO Q6H PRN (Reason: fever or pain) Qty: 30 0RF cyclobenzaprine 10 mg tablet 10 mg PO TID PRN (Reason: muscle spasm) Qty: 14 0RF <RADHA Lim - Last Filed: 01/23/23 19:17>
[2023-01-23] MEDS: Ibuprofen 400 MG TABLET PO (20:06)
== END 2023-01-23 20:10 | disposition home or self-care (01) ==
PROVIDERS: Emergency Provider Emergency Medicine
DX: G89.29 Other chronic pain (principal); M25.512 Pain in left shoulder; M25.562 Pain in left knee
CPT/HCPCS: 73562; 99283

== ENCOUNTER 2023-02-17 20:17 | Emergency (ER) | payer MEDICAID, SELFPAY ==
--- NOTE | ~2023-02-17 | XR_ITS ---
EXAMINATION: XR ABDOMEN KUB CLINICAL INDICATION: Evaluate for stool burden COMPARISON: 02/15/2022 TECHNIQUE: AP view of the abdomen. FINDINGS: Nonobstructive bowel gas pattern. Gas and stool throughout the colon with moderate diffuse colonic stool burden. No suspicious calcification. No acute osseous abnormality. XR/XR KUB IMPRESSION: Moderate colonic stool burden.
[2023-02-17 20:32] VITALS: BP 99/54; PULSE 66; RESP 15; TEMP 36.5; O2SAT 99; BMI 24.9
--- NOTE | 2023-02-17 20:33 | ED.ABDPAIN ---
HPI - Abdominal Pain General Chief Complaint: Abdominal Pain <Lisa Cummins NP - Last Filed: 02/17/23 20:39> Stated Complaint: abdominal pain <Lisa Cummins NP - Last Filed: 02/17/23 20:39> Time Seen by Provider: 02/17/23 21:06 <Lisa Cummins NP - Last Filed: 02/17/23 20:39> Source: patient <Kenyetta Del Toro MD - Last Filed: 02/17/23 21:39> Mode of arrival: ambulatory <Kenyetta Del Toro MD - Last Filed: 02/17/23 21:39> History of Present Illness HPI narrative: 38-year-old male who presents with diffuse abdominal discomfort that is not been associated with nausea, vomiting, fever, chills and states his last bowel movement was 2 days ago. <Kenyetta Del Toro MD - Last Filed: 02/17/23 21:39> Related Data Home Medications: Previous Rx's Medication Instructions Recorded cyclobenzaprine 10 mg tablet 10 mg PO TID PRN muscle pain or 09/21/21 spasm #20 tabs ketorolac 10 mg tablet 10 mg PO TID 5 days #15 tabs 09/21/21 cyclobenzaprine 10 mg tablet 10 mg PO TID PRN muscle spasm #14 12/03/21 tabs ibuprofen 600 mg tablet 600 mg PO TID PRN pain #14 tabs 12/03/21 cyclobenzaprine 10 mg tablet 10 mg PO TID PRN muscle spasm #10 12/27/21 tabs ibuprofen 600 mg tablet 600 mg PO Q6H PRN pain #20 tabs 12/27/21 benzocaine 10 % mucosal gel 1 appl mucous membrane QID PRN 02/08/22 (Anbesol (benzocaine)) mouth irritation #9 grams omeprazole magnesium 20 mg 20 mg PO BID #30 tabs 02/15/22 tablet,delayed release (Prilosec OTC) naproxen 500 mg tablet (Naprosyn) 500 mg PO BID #20 tabs 03/10/22 acetaminophen 500 mg tablet 500 mg PO Q6H PRN fever or pain 05/17/22 (Tylenol Extra Strength) #14 tabs lidocaine 5 % topical patch 1 patch topical DAILY PRN pain #30 05/17/22 (Lidoderm) ea naproxen 500 mg tablet 500 mg PO BID PRN pain 10 days #20 05/17/22 tabs ibuprofen 600 mg tablet 600 mg PO Q6H PRN pain #30 tabs 06/17/22 cyclobenzaprine 10 mg tablet 10 mg PO TID PRN muscle spasm #14 07/03/22 tabs cyclobenzaprine 10 mg tablet 10 mg PO Q8H #20 tabs 10/02/22 ibuprofen 600 mg tablet 600 mg PO Q6H PRN fever or pain 10/02/22 #30 tabs ketorolac 10 mg tablet 10 mg PO TID PRN pain 5 days #15 10/29/22 tabs prednisone 20 mg tablet 40 mg PO DAILY 5 days #10 tabs 10/29/22 doxycycline monohydrate 100 mg 100 mg PO BID 10 days #20 caps 11/29/22 capsule cyclobenzaprine 10 mg tablet 10 mg PO TID PRN muscle spasm #14 12/20/22 tabs cyclobenzaprine 10 mg tablet 10 mg PO TID PRN muscle spasm #10 12/27/22 tabs lidocaine 5 % topical patch 1 patch topical DAILY #15 ea 12/27/22 (Lidoderm) ibuprofen 400 mg tablet 400 mg PO Q8H PRN fever or pain 01/23/23 #14 tabs polyethylene glycol 3350 17 17 g PO BID #238 grams 02/17/23 gram/dose oral powder (Miralax) <Lisa Cummins NP - Last Filed: 02/17/23 20:39> Allergies/Adverse Reactions: Allergies Allergy/AdvReac Type Severity Reaction Status Date / Time Penicillins [PCN] Allergy Mild RASH Verified 11/28/22 23:22 silver AdvReac Intermediate rash Verified 11/28/22 23:22 [From TEGADERM AG MESH] <Lisa Cummins NP - Last Filed: 02/17/23 20:39> Review of Systems Review of Systems Pertinent positives and negatives as stated in HPI <Kenyetta Del Toro MD - Last Filed: 02/17/23 21:39> PMFSH Past Medical History Source: nursing notes reviewed <Kenyetta Del Toro MD - Last Filed: 02/17/23 21:39> Medical History: Medical History Anxiety Bipolar 1 disorder Contusion Depression Foot drop, right foot Heart murmur Schizophrenia <Lisa Cummins NP - Last Filed: 02/17/23 20:39> Surgical History: Surgical History No pertinent past surgical history <Lisa Cummins NP - Last Filed: 02/17/23 20:39> Social History Social History: Social History Alcohol intake: current Alcohol intake frequency: holidays/special occasions only Alcohol type: beer and hard liquor Patient Tobacco Use Status: Current everyday Tobacco user Smoked in Last 30 Days: Yes Use of substances other than those prescribed or required for medical reasons: No Substance Use Type: Crack/Cocaine <Lisa Cummins NP - Last Filed: 02/17/23 20:39> Physical Exam ED Vital Signs: Vital Signs - 24 hr 02/17/23 20:32 Temperature 97.7 F Pulse Rate 66 Respiratory Rate 15 Blood Pressure 99/54 L Pulse Oximetry 99 Oxygen Delivery Method Room Air BMI result Body Mass Index 24.9 <Lisa Cummins NP - Last Filed: 02/17/23 20:39> Vital Signs - 24 hr 02/17/23 20:32 Temperature 97.7 F Pulse Rate 66 Respiratory Rate 15 Blood Pressure 99/54 L Pulse Oximetry 99 Oxygen Delivery Method Room Air BMI result Body Mass Index 24.9 VITAL SIGNS: Reviewed. GENERAL: Well developed, well nourished, in no acute distress. HEAD: Normocephalic/atraumatic EYES: PERRLA, EOMI EARS: Ext canals without abnormality NOSE: Nares patent bilateral OROPHARYNX: no oral lesions noted, posterior pharynx clear NECK: Supple, no adenopathy LUNGS: Normal breath sounds. No adventitious sounds or accessory muscle use. SpO2<99> CARDIOVASCULAR: Regular rate and rhythm without noted murmurs ABDOMEN: Soft, non-tender, non-distended with bowel sounds. MUSCULOSKELETAL: No tenderness, deformities, or effusions noted on gross inspection. EXTREMITIES: No cyanosis, clubbing or edema. SKIN: Inspection of the skin reveals no rashes NEUROLOGIC: Alert and oriented x 4. Strength and sensation to light touch were grossly intact x 4. <Kenyetta Del Toro MD - Last Filed: 02/17/23 21:39> Course Course Course Narrative: This is a rapid medical exam. deferred additional HPI, ROS, PE to primary provider. 38 yo male heart murmur, schizophrenia, polysubstance use here with constipation, abdominal pain w/ no vomiting or fever. Last BM yesterday. WIll obtain labs, UA, KUB VSS <Lisa Cummins NP - Last Filed: 02/17/23 20:39> Medical Decision Making Medical Decision Making MDM Narrative: Is a 38-year-old male with history and clinical presentation consistent with acute on chronic constipation as patient has been seen here previously for similar presentation. I reviewed all investigations and my interpretation is as patient has constipation likely secondary to medication side effect. <Kenyetta Del Toro MD - Last Filed: 02/17/23 21:39> Differential Diagnosis Please see the discussion above <Kenyetta Del Toro MD - Last Filed: 02/17/23 21:39> Lab Data Please see the discussion above <Kenyetta Del Toro MD - Last Filed: 02/17/23 21:39> Result Diagrams: 02/17/23 20:45 02/17/23 20:45 <Lisa Cummins NP - Last Filed: 02/17/23 20:39> Labs: Lab Results 02/17/23 02/17/23 02/17/23 Range/Units 20:45 20:45 21:03 WBC 10.1 (4.8-10.8) X10*3/uL RBC 3.73 L (4.60-5.80) X10*6/uL Hgb 12.1 L (14.0-18.0) g/dl Hct 36.3 L (42.0-52.0) % MCV 97.3 (80.0-98.0) fL MCH 32.4 (27.0-33.0) pg MCHC 33.3 (31.0-36.0) g/dl RDW 13.0 (11.0-16.0) % Plt Count 230 (160-400) X10*3/uL MPV 10.0 (9.4-12.4) fL Immature Gran % (Auto) 0.2 (0.0-0.4) % Neut % (Auto) 68.3 (45-73) % Lymph % (Auto) 24.7 (20-40) % Pine % (Auto) 4.7 (2-11) % Eos % (Auto) 1.7 (0-4) % Baso % (Auto) 0.4 (0-2) % Lymph # (Auto) 2.5 (1.2-4.9) X10*3/uL Pine # (Auto) 0.5 (0.1-1.2) X10*3/uL Eos # (Auto) 0.2 (0.0-0.4) X10*3/uL Baso # (Auto) 0.0 (0.0-0.2) X10*3/uL Abs Immat Gran (auto) 0.02 (0.00-0.03) X10*3/uL Absolute Neuts (auto) 6.9 (2.0-8.3) x10*3/uL Absolute Nucleated RBC 0.000 (0.0-0.012) X10*3/uL Nucleated RBC % (auto) 0.0 (0.0-0.2) /100WBC Sodium 142 (135-145) mmol/L Potassium 4.2 (3.3-5.1) mmol/L Chloride 103 (96-108) mmol/L Carbon Dioxide 33 H (22-29) mmol/L Anion Gap 10 L (12-20) BUN 15 (9-16) mg/dL Creatinine 1.13 (0.5-1.4) mg/dL Estim Creat Clear Calc 85.7 Estimated GFR > 60 Random Glucose 92 (60-115) mg/dL Calcium 9.0 (8.4-10.2) mg/dL Total Bilirubin 0.5 (0.0-1.0) mg/dL Direct Bilirubin 0.2 (0.0-0.5) mg/dL AST 45 H (5-37) U/L ALT 71 H (0-40) U/L Alkaline Phosphatase 70 (39-117) U/L Total Protein 6.6 (6.5-8.0) g/dL Albumin 4.2 (3.5-5.0) g/dL Lipase 23 (8-78) U/L Urine Color Yellow Urine Appearance Clear Urine pH 6.0 (5.0-9.0) Ur Specific [place] 1.020 (1.005-1.025) Urine Protein Negative (Neg-Trace) mg/dL Urine Glucose (UA) Negative (Negative) mg/dL Urine Ketones Negative (Negative) mg/dL Urine Blood Negative (Negative) Urine Nitrite Negative (Negative) Ur Leukocyte Esterase Trace H (Negative) Urine RBC 0-2 (0-2) /HPF Urine WBC 0-5 (0-5) /HPF Ur Squamous Epith Cells 0-2 (0-2) /HPF Urine Bacteria None Seen (None Seen) Hyaline Casts 0-2 (0-2) /LPF <Lisa Cummins [employer]NAGER [employer] - Last Filed: 02/17/23 20:39> Lab Results 02/17/23 02/17/23 02/17/23 Range/Units 20:45 20:45 21:03 WBC 10.1 (4.8-10.8) X10*3/uL RBC 3.73 L (4.60-5.80) X10*6/uL Hgb 12.1 L (14.0-18.0) g/dl Hct 36.3 L (42.0-52.0) % MCV 97.3 (80.0-98.0) fL MCH 32.4 (27.0-33.0) pg MCHC 33.3 (31.0-36.0) g/dl RDW 13.0 (11.0-16.0) % Plt Count 230 (160-400) X10*3/uL MPV 10.0 (9.4-12.4) fL Immature Gran % (Auto) 0.2 (0.0-0.4) % Neut % (Auto) 68.3 (45-73) % Lymph % (Auto) 24.7 (20-40) % Pine % (Auto) 4.7 (2-11) % Eos % (Auto) 1.7 (0-4) % Baso % (Auto) 0.4 (0-2) % Lymph # (Auto) 2.5 (1.2-4.9) X10*3/uL Pine # (Auto) 0.5 (0.1-1.2) X10*3/uL Eos # (Auto) 0.2 (0.0-0.4) X10*3/uL Baso # (Auto) 0.0 (0.0-0.2) X10*3/uL Abs Immat Gran (auto) 0.02 (0.00-0.03) X10*3/uL Absolute Neuts (auto) 6.9 (2.0-8.3) x10*3/uL Absolute Nucleated RBC 0.000 (0.0-0.012) X10*3/uL Nucleated RBC % (auto) 0.0 (0.0-0.2) /100WBC Sodium 142 (135-145) mmol/L Potassium 4.2 (3.3-5.1) mmol/L Chloride 103 (96-108) mmol/L Carbon Dioxide 33 H (22-29) mmol/L Anion Gap 10 L (12-20) BUN 15 (9-16) mg/dL Creatinine 1.13 (0.5-1.4) mg/dL Estim Creat Clear Calc 85.7 Estimated GFR > 60 Random Glucose 92 (60-115) mg/dL Calcium 9.0 (8.4-10.2) mg/dL Total Bilirubin 0.5 (0.0-1.0) mg/dL Direct Bilirubin 0.2 (0.0-0.5) mg/dL AST 45 H (5-37) U/L ALT 71 H (0-40) U/L Alkaline Phosphatase 70 (39-117) U/L Total Protein 6.6 (6.5-8.0) g/dL Albumin 4.2 (3.5-5.0) g/dL Lipase 23 (8-78) U/L Urine Color Yellow Urine Appearance Clear Urine pH 6.0 (5.0-9.0) Ur Specific [place] 1.020 (1.005-1.025) Urine Protein Negative (Neg-Trace) mg/dL Urine Glucose (UA) Negative (Negative) mg/dL Urine Ketones Negative (Negative) mg/dL Urine Blood Negative (Negative) Urine Nitrite Negative (Negative) Ur Leukocyte Esterase Trace H (Negative) Urine RBC 0-2 (0-2) /HPF Urine WBC 0-5 (0-5) /HPF Ur Squamous Epith Cells 0-2 (0-2) /HPF Urine Bacteria None Seen (None Seen) Hyaline Casts 0-2 (0-2) /LPF <Kenyetta Del Toro MD - Last Filed: 02/17/23 21:39> Radiology Impression Radiologist Impression: My interpretation is in agreement with radiology's impression of the imaging studies. <Kenyetta Del Toro MD - Last Filed: 02/17/23 21:39> External Record Review External record reviewed: Outpatient record and Prior outpatient labs <Kenyetta Del Toro MD - Last Filed: 02/17/23 21:39> Discharge Plan Discharge Clinical Impression: Constipation, Polysubstance use disorder <Lisa Cummins NP - Last Filed: 02/17/23 20:39> Patient Disposition: Home, Self-Care <Lisa Cummins NP - Last Filed: 02/17/23 20:39> Instructions: Constipation (ED), High Fiber Diet (ED), Polysubstance Abuse (ED), Fleet Enema (ED) <Lisa Cummins NP - Last Filed: 02/17/23 20:39> Additional Instructions: 1. I have sent a prescription for MiraLax to your pharmacy, you should start by taking an twice a day until you have soft formed stools and then reduce the frequency of the medication to once daily. If you develop diarrhea please stop taking immediately. 2. Follow-up with primary care provider in the next 2-3 days. Return to the ER for any worsening symptoms. <Lisa Cummins NP - Last Filed: 02/17/23 20:39> Prescriptions: New polyethylene glycol 3350 [Miralax] 17 gram/dose powder 17 g PO BID Qty: 238 0RF Rx Instructions: Use twice daily until you have daily, soft formed stools then reduce frequency to daily. Stop if you develop diarrhea. No Action Anbesol (benzocaine) 10 % gel 1 appl mucous membrane QID PRN (Reason: mouth irritation) Qty: 9 0RF omeprazole magnesium [Prilosec OTC] 20 mg tablet,delayed release (DR/EC) 20 mg PO BID Qty: 30 0RF acetaminophen [Tylenol Extra Strength] 500 mg tablet 500 mg PO Q6H PRN (Reason: fever or pain) Qty: 14 0RF lidocaine [Lidoderm] 5 % adhesive patch,medicated 1 patch topical DAILY MDD remove after 12 hours PRN (Reason: pain) Qty: 30 0RF Rx Instructions: leave on most painful area for up to 12 hrs naproxen 500 mg tablet 500 mg PO BID PRN (Reason: pain) 10 Days Qty: 20 0RF ibuprofen 600 mg tablet 600 mg PO Q6H PRN (Reason: pain) Qty: 30 0RF ketorolac 10 mg tablet 10 mg PO TID PRN (Reason: pain) 5 Days Qty: 15 0RF Rx Instructions: Tolerated IM in the department prednisone 20 mg tablet 40 mg PO DAILY 5 Days Qty: 10 0RF doxycycline monohydrate 100 mg capsule 100 mg PO BID 10 Days Qty: 20 0RF cyclobenzaprine 10 mg tablet 10 mg PO TID PRN (Reason: muscle spasm) Qty: 10 0RF lidocaine [Lidoderm] 5 % adhesive patch,medicated 1 patch topical DAILY Qty: 15 0RF Rx Instructions: leave on most painful area for up to 12 hrs cyclobenzaprine 10 mg tablet 10 mg PO TID PRN (Reason: muscle pain or spasm) Qty: 20 0RF ketorolac 10 mg tablet 10 mg PO TID 5 Days Qty: 15 0RF cyclobenzaprine 10 mg tablet 10 mg PO TID PRN (Reason: muscle spasm) Qty: 14 0RF Rx Instructions: Do not use before working with machinery or driving ibuprofen 600 mg tablet 600 mg PO TID PRN (Reason: pain) Qty: 14 0RF cyclobenzaprine 10 mg tablet 10 mg PO TID PRN (Reason: muscle spasm) Qty: 10 0RF ibuprofen 600 mg tablet 600 mg PO Q6H PRN (Reason: pain) Qty: 20 0RF naproxen [Naprosyn] 500 mg tablet 500 mg PO BID Qty: 20 0RF cyclobenzaprine 10 mg tablet 10 mg PO TID PRN (Reason: muscle spasm) Qty: 14 0RF cyclobenzaprine 10 mg tablet 10 mg PO Q8H Qty: 20 0RF ibuprofen 600 mg tablet 600 mg PO Q6H PRN (Reason: fever or pain) Qty: 30 0RF cyclobenzaprine 10 mg tablet 10 mg PO TID PRN (Reason: muscle spasm) Qty: 14 0RF ibuprofen 400 mg tablet 400 mg PO Q8H PRN (Reason: fever or pain) Qty: 14 0RF <Lisa Cummins [employer]GER [employer] - Last Filed: 02/17/23 20:39>
[2023-02-17 20:49] LABS: MANUAL DIFF FLAG NO
[2023-02-17 20:53] LABS: Basophils Percent Auto 0.4 % (0-2); Eosinophils Absolute Auto 0.2 X10*3/uL (0.0-0.4); Eosinophils Percent Auto 1.7 % (0-4); Hematocrit 36.3 % (42.0-52.0); Hemoglobin 12.1 g/dl (14.0-18.0); Imm Gran Abs Auto 0.02 X10*3/uL (0.00-0.03); Imm Gran Pct Auto 0.2 % (0.0-0.4); Lymphocytes Absolute Auto 2.5 X10*3/uL (1.2-4.9); Lymphocytes Percent Auto 24.7 % (20-40); Mean Corpuscular HGB Conc 33.3 g/dl (31.0-36.0); Mean Corpuscular Hemoglobin 32.4 pg (27.0-33.0); Mean Corpuscular Volume 97.3 fL (80.0-98.0); Monocytes Absolute Auto 0.5 X10*3/uL (0.1-1.2); Monocytes Percent Auto 4.7 % (2-11); Neutrophils Absolute Auto 6.9 x10*3/uL (2.0-8.3); Neutrophils Percent Auto 68.3 % (45-73); Platelet Count 230 X10*3/uL (160-400); Red Blood Count 3.73 X10*6/uL (4.60-5.80); White Blood Count 10.1 X10*3/uL (4.8-10.8)
[2023-02-17 21:05] LABS: Alanine Aminotransferase 71 U/L (0-40); Albumin Level 4.2 g/dL (3.5-5.0); Alkaline Phosphatase 70 U/L (39-117); Anion Gap 10 (12-20); Aspartate Amino Transferase 45 U/L (5-37); Bilirubin Direct 0.2 mg/dL (0.0-0.5); Bilirubin Total 0.5 mg/dL (0.0-1.0); Blood Urea Nitrogen 15 mg/dL (9-16); Carbon Dioxide 33 mmol/L (22-29); Chloride 103 mmol/L (96-108); Creatinine Clr Calc Pharmacy 85.7; Estimated Glomerular Filt Rate > 60; Glucose Random 92 mg/dL (60-115); Lipase 23 U/L (8-78); Potassium 4.2 mmol/L (3.3-5.1); Sodium 142 mmol/L (135-145); Total Protein 6.6 g/dL (6.5-8.0)
[2023-02-17 21:09] LABS: Appearance Urine Clear; Color Urine Yellow; Glucose Urine UA Negative (Negative); Leukocyte Esterase Urine Trace (Negative); Nitrite Urine Negative (Negative); UMIC TRIGGER UACC YES; Urine Blood Negative (Negative); Urine Ketones Negative (Negative); Urine Protein Negative (Neg-Trace)
[2023-02-17 21:13] LABS: Bacteria Urine None Seen (None Seen); Hyaline Casts Urine 0-2 /LPF (0-2); RBC Urine 0-2 /HPF (0-2); Squamous Epithelial Cell Urine 0-2 /HPF (0-2); WBC Urine 0-5 /HPF (0-5)
== END 2023-02-17 21:49 | disposition home or self-care (01) ==
LOC: HO.ED 21:47
PROVIDERS: Nurse Practitioner Family; Emergency Provider Student in an Organized Health Care Education/Training Program
DX: K59.00 Constipation, unspecified (principal); R10.13 Epigastric pain; F14.10 Cocaine abuse, uncomplicated; F17.200 Nicotine dependence, unspecified, uncomplicated; Z71.6 Tobacco abuse counseling; Z79.899 Other long term (current) drug therapy
CPT/HCPCS: 36415; 74018; 80048; 80076; 81001; 83690; 85025; 99283; 99284

== ENCOUNTER 2023-03-23 15:54 | Emergency (ER) | payer MEDICAID, SELFPAY | END 2023-03-23 16:28 | disposition left against medical advice (07) | LOC: HO.ED 16:21 | PROVIDERS: Emergency Provider Emergency Medicine | DX: M54.50 Low back pain, unspecified (principal) ==

== ENCOUNTER 2023-05-23 01:36 | Emergency (ER) | payer MEDICAID, SELFPAY ==
[2023-05-23 01:47] VITALS: BP 111/68; PULSE 66; RESP 18; TEMP 36.9; O2SAT 99; BMI 19.3
--- NOTE | 2023-05-23 04:43 | ED.GENADULT ---
HPI - General Adult General Chief complaint: General Medical Stated complaint: Detox Time Seen by Provider: 05/23/23 04:28 Source: patient Mode of arrival: ambulatory Limitations: no limitations History of Present Illness HPI narrative: Patients of alcohol and cocaine abuse comes here to go to detox. Last time patient was in detox was 08/22 states sober for a month patient been drinking beer and using cocaine last use was 21:00 yesterday. No history of DTs feel little anxious at this time no chest pain or palpitation or shortness of breath Related Data Previous Rx's Medication Instructions Recorded cyclobenzaprine 10 mg tablet 10 mg PO TID PRN muscle pain or 09/21/21 spasm #20 tabs ketorolac 10 mg tablet 10 mg PO TID 5 days #15 tabs 09/21/21 cyclobenzaprine 10 mg tablet 10 mg PO TID PRN muscle spasm #14 12/03/21 tabs ibuprofen 600 mg tablet 600 mg PO TID PRN pain #14 tabs 12/03/21 cyclobenzaprine 10 mg tablet 10 mg PO TID PRN muscle spasm #10 12/27/21 tabs ibuprofen 600 mg tablet 600 mg PO Q6H PRN pain #20 tabs 12/27/21 benzocaine 10 % mucosal gel 1 appl mucous membrane QID PRN 02/08/22 (Anbesol (benzocaine)) mouth irritation #9 grams omeprazole magnesium 20 mg 20 mg PO BID #30 tabs 02/15/22 tablet,delayed release (Prilosec OTC) naproxen 500 mg tablet (Naprosyn) 500 mg PO BID #20 tabs 03/10/22 acetaminophen 500 mg tablet 500 mg PO Q6H PRN fever or pain 05/17/22 (Tylenol Extra Strength) #14 tabs lidocaine 5 % topical patch 1 patch topical DAILY PRN pain #30 05/17/22 (Lidoderm) ea naproxen 500 mg tablet 500 mg PO BID PRN pain 10 days #20 05/17/22 tabs ibuprofen 600 mg tablet 600 mg PO Q6H PRN pain #30 tabs 06/17/22 cyclobenzaprine 10 mg tablet 10 mg PO TID PRN muscle spasm #14 07/03/22 tabs cyclobenzaprine 10 mg tablet 10 mg PO Q8H #20 tabs 10/02/22 ibuprofen 600 mg tablet 600 mg PO Q6H PRN fever or pain 10/02/22 #30 tabs ketorolac 10 mg tablet 10 mg PO TID PRN pain 5 days #15 10/29/22 tabs prednisone 20 mg tablet 40 mg PO DAILY 5 days #10 tabs 10/29/22 doxycycline monohydrate 100 mg 100 mg PO BID 10 days #20 caps 11/29/22 capsule cyclobenzaprine 10 mg tablet 10 mg PO TID PRN muscle spasm #14 12/20/22 tabs cyclobenzaprine 10 mg tablet 10 mg PO TID PRN muscle spasm #10 12/27/22 tabs lidocaine 5 % topical patch 1 patch topical DAILY #15 ea 12/27/22 (Lidoderm) ibuprofen 400 mg tablet 400 mg PO Q8H PRN fever or pain 01/23/23 #14 tabs polyethylene glycol 3350 17 17 g PO BID #238 grams 02/17/23 gram/dose oral powder (Miralax) Allergies Allergy/AdvReac Type Severity Reaction Status Date / Time Penicillins [PCN] Allergy Mild RASH Verified 11/28/22 23:22 silver AdvReac Intermediate rash Verified 11/28/22 23:22 [From TEGADERM AG MESH] Review of Systems Review of Systems: Yes all other systems are reviewed and are negative PMFSH Past Medical History Medical History Anxiety Bipolar 1 disorder Contusion Depression Foot drop, right foot Heart murmur Schizophrenia Surgical History No pertinent past surgical history Social History Social History Alcohol intake: current Alcohol intake frequency: a few times a week Alcohol type: beer and hard liquor Patient Tobacco Use Status: Current everyday Tobacco user Smoked in Last 30 Days: Yes Use of substances other than those prescribed or required for medical reasons: Yes Substance Use Type: Crack/Cocaine and Heroin Advance Directives: No Advance Directives Information Provided: Yes Physical Exam ED Vital Signs: Vital Signs - 24 hr 05/23/23 01:47 05/23/23 06:08 Temperature 98.4 F 98.3 F Pulse Rate 66 60 Respiratory Rate 18 12 Blood Pressure 111/68 103/60 Pulse Oximetry 99 100 Oxygen Delivery Method Room Air Room Air BMI result Body Mass Index 19.3 Appearance: Alert. Oriented X3. No acute distress. Eyes: PERRLA, No Nystagmus ENT: Pharynx normal. Oral Mucosa moist Neck: Normal inspection. Neck supple. CVS: Normal heart rate and rhythm. Pulses normal. Respiratory: No respiratory distress. Equal air entry bilateral, no wheezing/rales/rhonchi Abdomen: Soft and nontender. Bowel sounds are present, no mass palpable, no CVA tenderness Skin: Skin warm and dry. Normal skin color. Normal skin turgor. Extremities: No lower extremity edema. No calf tenderness Neuro: Oriented X 3. No motor deficit. No sensory deficit.No cerebellar signs , cranial nerves II-XII intact Medications Administered Discontinued Medications Generic Name Dose Route Start Last Admin Trade Name Freq PRN Reason Stop Dose Admin Lorazepam 2 mg 05/23/23 04:45 05/23/23 05:05 Lorazepam 1 Mg Tablet PO 05/23/23 04:46 2 mg ONCE ONE Administration Medical Decision Making Medical Decision Making [facility] Narrative: Patient's cocaine alcohol abuse looking for detox placement get care team involved labs stable medically cleared Lab Data [facility] Lab Attestation statement: I reviewed the patient's lab results. 05/23/23 04:50 05/23/23 04:50 Labs: Lab Results 05/23/23 05/23/23 05/23/23 Range/Units 04:50 04:50 04:50 WBC 12.2 H (4.8-10.8) X10*3/uL RBC 3.89 L (4.60-5.80) X10*6/uL Hgb 12.4 L (14.0-18.0) g/dl Hct 37.5 L (42.0-52.0) % MCV 96.4 (80.0-98.0) fL MCH 31.9 (27.0-33.0) pg MCHC 33.1 (31.0-36.0) g/dl RDW 13.8 (11.0-16.0) % Plt Count 177 (160-400) X10*3/uL MPV 9.8 (9.4-12.4) fL Immature Gran % (Auto) 0.3 (0.0-0.4) % Neut % (Auto) 76.9 H (45-73) % Lymph % (Auto) 18.1 L (20-40) % [place] % (Auto) 3.9 (2-11) % Eos % (Auto) 0.6 (0-4) % Baso % (Auto) 0.2 (0-2) % Lymph # (Auto) 2.2 (1.2-4.9) X10*3/uL [place] # (Auto) 0.5 (0.1-1.2) X10*3/uL Eos # (Auto) 0.1 (0.0-0.4) X10*3/uL Baso # (Auto) 0.0 (0.0-0.2) X10*3/uL Abs Immat Gran (auto) 0.04 H (0.00-0.03) X10*3/uL Absolute Neuts (auto) 9.4 H (2.0-8.3) x10*3/uL Absolute Nucleated RBC 0.000 (0.0-0.012) X10*3/uL Nucleated RBC % (auto) 0.0 (0.0-0.2) /100WBC Sodium 139 (135-145) mmol/L Potassium 4.4 (3.3-5.1) mmol/L Chloride 106 (96-108) mmol/L Carbon Dioxide 24 (22-29) mmol/L Anion Gap 13 (12-20) BUN 13 (9-16) mg/dL Creatinine 0.88 (0.5-1.4) mg/dL Estim Creat Clear Calc 92.8 Estimated GFR > 60 Random Glucose 93 (60-115) mg/dL Calcium 8.7 (8.4-10.2) mg/dL Magnesium 1.9 (1.6-2.6) mg/dL Total Bilirubin 0.4 (0.0-1.0) mg/dL AST 54 H (5-37) U/L ALT 92 H (0-40) U/L Alkaline Phosphatase 72 (39-117) U/L Total Protein 6.5 (6.5-8.0) g/dL Albumin 4.0 (3.5-5.0) g/dL Urine Opiates Screen (Not Detect) Urine Fentanyl Screen (Not Detect) Ur Barbiturates Screen (Not Detect) Ur Phencyclidine Scrn (Not Detect) Ur Amphetamines Screen (Not Detect) U Benzodiazepines Scrn (Not Detect) Urine Cocaine Screen (Not Detect) U Marijuana (THC) Screen (Not Detect) Ethyl Alcohol mg/dL COVID-19 (SURYA) Negative (Negative) COVID-19 Clin Com See Note 05/23/23 05/23/23 Range/Units 04:50 06:11 WBC (4.8-10.8) X10*3/uL RBC (4.60-5.80) X10*6/uL Hgb (14.0-18.0) g/dl Hct (42.0-52.0) % MCV (80.0-98.0) fL MCH (27.0-33.0) pg MCHC (31.0-36.0) g/dl RDW (11.0-16.0) % Plt Count (160-400) X10*3/uL MPV (9.4-12.4) fL Immature Gran % (Auto) (0.0-0.4) % Neut % (Auto) (45-73) % Lymph % (Auto) (20-40) % [place] % (Auto) (2-11) % Eos % (Auto) (0-4) % Baso % (Auto) (0-2) % Lymph # (Auto) (1.2-4.9) X10*3/uL [place] # (Auto) (0.1-1.2) X10*3/uL Eos # (Auto) (0.0-0.4) X10*3/uL Baso # (Auto) (0.0-0.2) X10*3/uL Abs Immat Gran (auto) (0.00-0.03) X10*3/uL Absolute Neuts (auto) (2.0-8.3) x10*3/uL Absolute Nucleated RBC (0.0-0.012) X10*3/uL Nucleated RBC % (auto) (0.0-0.2) /100WBC Sodium (135-145) mmol/L Potassium (3.3-5.1) mmol/L Chloride (96-108) mmol/L Carbon Dioxide (22-29) mmol/L Anion Gap (12-20) BUN (9-16) mg/dL Creatinine (0.5-1.4) mg/dL Estim Creat Clear Calc Estimated GFR Random Glucose (60-115) mg/dL Calcium (8.4-10.2) mg/dL Magnesium (1.6-2.6) mg/dL Total Bilirubin (0.0-1.0) mg/dL AST (5-37) U/L ALT (0-40) U/L Alkaline Phosphatase (39-117) U/L Total Protein (6.5-8.0) g/dL Albumin (3.5-5.0) g/dL Urine Opiates Screen Not Detected (Not Detect) Urine Fentanyl Screen Not Detected (Not Detect) Ur Barbiturates Screen Not Detected (Not Detect) Ur Phencyclidine Scrn Not Detected (Not Detect) Ur Amphetamines Screen Not Detected (Not Detect) U Benzodiazepines Scrn Not Detected (Not Detect) Urine Cocaine Screen POSITIVE H (Not Detect) U Marijuana (THC) Screen POSITIVE H (Not Detect) Ethyl Alcohol 13 mg/dL COVID-19 (SURYA) (Negative) COVID-19 Clin Com Discharge Plan Discharge Clinical Impression: Alcohol abuse Patient Disposition: Still a Patient Prescriptions: No Action Anbesol (benzocaine) 10 % gel 1 appl mucous membrane QID PRN (Reason: mouth irritation) Qty: 9 0RF omeprazole magnesium [Prilosec OTC] 20 mg tablet,delayed release (DR/EC) 20 mg PO BID Qty: 30 0RF acetaminophen [Tylenol Extra Strength] 500 mg tablet 500 mg PO Q6H PRN (Reason: fever or pain) Qty: 14 0RF lidocaine [Lidoderm] 5 % adhesive patch,medicated 1 patch topical DAILY MDD remove after 12 hours PRN (Reason: pain) Qty: 30 0RF Rx Instructions: leave on most painful area for up to 12 hrs naproxen 500 mg tablet 500 mg PO BID PRN (Reason: pain) 10 Days Qty: 20 0RF ibuprofen 600 mg tablet 600 mg PO Q6H PRN (Reason: pain) Qty: 30 0RF ketorolac 10 mg tablet 10 mg PO TID PRN (Reason: pain) 5 Days Qty: 15 0RF Rx Instructions: Tolerated IM in the department prednisone 20 mg tablet 40 mg PO DAILY 5 Days Qty: 10 0RF doxycycline monohydrate 100 mg capsule 100 mg PO BID 10 Days Qty: 20 0RF cyclobenzaprine 10 mg tablet 10 mg PO TID PRN (Reason: muscle spasm) Qty: 10 0RF lidocaine [Lidoderm] 5 % adhesive patch,medicated 1 patch topical DAILY Qty: 15 0RF Rx Instructions: leave on most painful area for up to 12 hrs cyclobenzaprine 10 mg tablet 10 mg PO TID PRN (Reason: muscle pain or spasm) Qty: 20 0RF ketorolac 10 mg tablet 10 mg PO TID 5 Days Qty: 15 0RF cyclobenzaprine 10 mg tablet 10 mg PO TID PRN (Reason: muscle spasm) Qty: 14 0RF Rx Instructions: Do not use before working with machinery or driving ibuprofen 600 mg tablet 600 mg PO TID PRN (Reason: pain) Qty: 14 0RF cyclobenzaprine 10 mg tablet 10 mg PO TID PRN (Reason: muscle spasm) Qty: 10 0RF ibuprofen 600 mg tablet 600 mg PO Q6H PRN (Reason: pain) Qty: 20 0RF naproxen [Naprosyn] 500 mg tablet 500 mg PO BID Qty: 20 0RF cyclobenzaprine 10 mg tablet 10 mg PO TID PRN (Reason: muscle spasm) Qty: 14 0RF cyclobenzaprine 10 mg tablet 10 mg PO Q8H Qty: 20 0RF ibuprofen 600 mg tablet 600 mg PO Q6H PRN (Reason: fever or pain) Qty: 30 0RF cyclobenzaprine 10 mg tablet 10 mg PO TID PRN (Reason: muscle spasm) Qty: 14 0RF ibuprofen 400 mg tablet 400 mg PO Q8H PRN (Reason: fever or pain) Qty: 14 0RF polyethylene glycol 3350 [Miralax] 17 gram/dose powder 17 g PO BID Qty: 238 0RF Rx Instructions: Use twice daily until you have daily, soft formed stools then reduce frequency to daily. Stop if you develop diarrhea.
[2023-05-23 04:56] LABS: Basophils Percent Auto 0.2 % (0-2); Eosinophils Absolute Auto 0.1 X10*3/uL (0.0-0.4); Eosinophils Percent Auto 0.6 % (0-4); Hematocrit 37.5 % (42.0-52.0); Hemoglobin 12.4 g/dl (14.0-18.0); Imm Gran Abs Auto 0.04 X10*3/uL (0.00-0.03); Imm Gran Pct Auto 0.3 % (0.0-0.4); Lymphocytes Absolute Auto 2.2 X10*3/uL (1.2-4.9); Lymphocytes Percent Auto 18.1 % (20-40); MANUAL DIFF FLAG NO; Mean Corpuscular HGB Conc 33.1 g/dl (31.0-36.0); Mean Corpuscular Hemoglobin 31.9 pg (27.0-33.0); Mean Corpuscular Volume 96.4 fL (80.0-98.0); Mean Platelet Volume 9.8 fL (9.4-12.4); Monocytes Absolute Auto 0.5 X10*3/uL (0.1-1.2); Monocytes Percent Auto 3.9 % (2-11); Neutrophils Absolute Auto 9.4 x10*3/uL (2.0-8.3); Neutrophils Percent Auto 76.9 % (45-73); Platelet Count 177 X10*3/uL (160-400); Red Blood Count 3.89 X10*6/uL (4.60-5.80); Red Cell Distribution Width 13.8 % (11.0-16.0); White Blood Count 12.2 X10*3/uL (4.8-10.8)
[2023-05-23] MEDS: LORazepam 1 MG TABLET 2 MG PO (05:05)
[2023-05-23 05:06] LABS: Ethanol 13 mg/dL
[2023-05-23 05:08] LABS: COVID-19 Test Negative (Negative); IDNOW Serial# BCCEAD1C
[2023-05-23 05:09] LABS: Alanine Aminotransferase 92 U/L (0-40); Alkaline Phosphatase 72 U/L (39-117); Anion Gap 13 (12-20); Aspartate Amino Transferase 54 U/L (5-37); Bilirubin Total 0.4 mg/dL (0.0-1.0); Blood Urea Nitrogen 13 mg/dL (9-16); Calcium 8.7 mg/dL (8.4-10.2); Carbon Dioxide 24 mmol/L (22-29); Chloride 106 mmol/L (96-108); Creatinine Clr Calc Pharmacy 92.8; Estimated Glomerular Filt Rate > 60; Glucose Random 93 mg/dL (60-115); Magnesium 1.9 mg/dL (1.6-2.6); Potassium 4.4 mmol/L (3.3-5.1); Sodium 139 mmol/L (135-145); Total Protein 6.5 g/dL (6.5-8.0)
--- NOTE | 2023-05-23 05:35 | PC.NURSE ---
Pt calm and cooperative, requesting detox, Pt reports smoking crack, and snorting heroine. Pt denies Si/HI, AH/VH. Pt ambulating independently with steady gait.
[2023-05-23 06:08] VITALS: BP 103/60; PULSE 60; RESP 12; TEMP 36.8; O2SAT 100
[2023-05-23 06:29] LABS: Amphetamine Screen Urine Not Detected (Not Detect); Barbiturates, Urine Not Detected (Not Detect); Benzodiazepines Screen Urine Not Detected (Not Detect); Cannabinoid Screen Urine POSITIVE (Not Detect); Cocaine Screen Urine POSITIVE (Not Detect); Fentanyl, urine Not Detected (Not Detect); Opiate Screen Urine Not Detected (Not Detect); Phencyclidine Screen Urine Not Detected (Not Detect)
[2023-05-23 07:32] VITALS: BP 102/59; PULSE 62; RESP 16; TEMP 36.8; O2SAT 99
[2023-05-23 09:24] VITALS: BP 90/58; PULSE 48; RESP 14; TEMP 36.6; O2SAT 99
--- NOTE | 2023-05-23 09:40 | PC.NURSE ---
pt is a/o x 4 no sob/em noted speaks in full sentences. calm/co-op. pt is waiting for recovery team. pt aware of plan of care. breakfast ordered per pt request.
--- NOTE | 2023-05-23 12:24 | MHC.RECOVRN ---
Met with pt in [facility] after pt presented to ED seeking ATS. Pt laying on stretcher, awake, alert, appears comfortable, eating ice cream, easily engages in conversation. Pt reports heroin use, 5-10 bags daily, IN, last use 3 days ago; 9 24 oz beers daily, last use yesterday; cocaine, $60 daily, INH, last use yesterday. Pt reports receiving methadone from [facility], 60 mg daily, has take homes and is expected to return to the [facility] on Wednesday. Pt is interested in ATS, t/w will conduct bedsearch.
[2023-05-23 12:43] VITALS: BP 118/69; PULSE 57; RESP 14; TEMP 36.7; O2SAT 100
--- NOTE | 2023-05-23 13:15 | PC.NURSE ---
pt is eating lunch.
--- NOTE | 2023-05-23 14:39 | MHC.RECOVRN ---
Pt accepted to [facility] for 3PM admission. Per intake, okay for pt to dc, go get clothes, and present to the facility. RN and provider aware.
== END 2023-05-23 14:10 | disposition home or self-care (01) ==
PROVIDERS: Emergency Provider Internal Medicine
DX: F10.10 Alcohol abuse, uncomplicated (principal); Y90.0 Blood alcohol level of less than 20 mg/100 ml; F14.10 Cocaine abuse, uncomplicated; Z20.822 Contact with and (suspected) exposure to COVID-19; I10 Essential (primary) hypertension; F20.9 Schizophrenia, unspecified; Z79.899 Other long term (current) drug therapy
CPT/HCPCS: 36415; 80053; 80307; 83735; 85025; 87635; 99284

== ENCOUNTER 2023-07-14 05:49 | Emergency (ER) | payer MEDICAID, SELFPAY ==
[2023-07-14 05:51] VITALS: BP 115/61; PULSE 53; RESP 16; TEMP 36.8; O2SAT 98; BMI 20.4
== END 2023-07-14 06:26 | disposition left against medical advice (07) ==
PROVIDERS: Emergency Provider Emergency Medicine
DX: M54.50 Low back pain, unspecified (principal); K59.00 Constipation, unspecified
CPT/HCPCS: 99281

== ENCOUNTER 2024-02-07 23:59 | Emergency (ER) | payer OTHER, SELFPAY ==
[2024-02-08 00:10] VITALS: BP 133/80; PULSE 73; RESP 18; TEMP 36.8; O2SAT 97; BMI 21.3
[2024-02-08 00:50] LABS: MANUAL DIFF FLAG NO
--- NOTE | 2024-02-08 00:54 | PC.NURSE ---
supplemental triage note: patient states past dx of schizoaffective d/o off meds for 3 yrs states past on risperdal states [facility] for pharmacyreports used 2 bags and 40 dollars cocaine today, states SI with no plan, reports no hallucinations, states missed dose for mmtp today at [facility] ([facility]) some detixes in last two months at [facility] and [email or web address].
[2024-02-08 01:18] LABS: Basophils Percent Auto 0.4 % (0-2); Eosinophils Percent Auto 0.5 % (0-4); Hematocrit 40.7 % (42.0-52.0); Hemoglobin 13.7 g/dl (14.0-18.0); Imm Gran Abs Auto 0.02 X10*3/uL (0.00-0.03); Imm Gran Pct Auto 0.2 % (0.0-0.4); Lymphocytes Absolute Auto 2.1 X10*3/uL (1.2-4.9); Lymphocytes Percent Auto 25.7 % (20-40); Mean Corpuscular HGB Conc 33.7 g/dl (31.0-36.0); Mean Corpuscular Hemoglobin 31.9 pg (27.0-33.0); Mean Corpuscular Volume 94.9 fL (80.0-98.0); Mean Platelet Volume 10.2 fL (9.4-12.4); Monocytes Absolute Auto 0.4 X10*3/uL (0.1-1.2); Monocytes Percent Auto 4.6 % (2-11); Neutrophils Absolute Auto 5.7 x10*3/uL (2.0-8.3); Neutrophils Percent Auto 68.6 % (45-73); Platelet Count 213 X10*3/uL (160-400); Red Blood Count 4.29 X10*6/uL (4.60-5.80); Red Cell Distribution Width 12.6 % (11.0-16.0); White Blood Count 8.3 X10*3/uL (4.8-10.8)
[2024-02-08 01:32] LABS: Alanine Aminotransferase 55 U/L (0-40); Albumin Level 4.6 g/dL (3.5-5.0); Alkaline Phosphatase 72 U/L (39-117); Anion Gap 13 (12-20); Aspartate Amino Transferase 46 U/L (5-37); Bilirubin Total 0.7 mg/dL (0.0-1.0); Blood Urea Nitrogen 14 mg/dL (9-16); Calcium 9.4 mg/dL (8.4-10.2); Carbon Dioxide 33 mmol/L (22-29); Chloride 101 mmol/L (96-108); Creatinine Clr Calc Pharmacy 85.6; Estimated Glomerular Filt Rate > 60; Ethanol < 10 mg/dL; Glucose Random 113 mg/dL (60-115); Potassium 3.8 mmol/L (3.3-5.1); Sodium 143 mmol/L (135-145); Total Protein 7.6 g/dL (6.5-8.0)
[2024-02-08 02:01] LABS: Appearance Urine Clear; Color Urine Yellow; Glucose Urine UA Negative (Negative); Leukocyte Esterase Urine Trace (Negative); Nitrite Urine Negative (Negative); Specific Gravity - Urine 1.025 (1.005-1.025); UMIC TRIGGER UACC YES; Urine Blood Negative (Negative); Urine Ketones Negative (Negative); Urine Protein Negative (Neg-Trace)
[2024-02-08 02:04] LABS: Amphetamine Screen Urine Not Detected (Not Detect); Barbiturates, Urine Not Detected (Not Detect); Benzodiazepines Screen Urine Not Detected (Not Detect); Cannabinoid Screen Urine POSITIVE (Not Detect); Cocaine Screen Urine POSITIVE (Not Detect); Fentanyl, urine POSITIVE (Not Detect); Opiate Screen Urine POSITIVE (Not Detect); Phencyclidine Screen Urine Not Detected (Not Detect)
[2024-02-08] MEDS: Ondansetron ODT 4 MG TAB.RAPDIS TRANSLINGU (02:04)
[2024-02-08 02:06] LABS: Bacteria Urine None Seen (None Seen); Hyaline Casts Urine 0-2 /LPF (0-2); RBC Urine 0-2 /HPF (0-2); Squamous Epithelial Cell Urine 0-2 /HPF (0-2); WBC Urine 0-5 /HPF (0-5)
[2024-02-08 02:40] LABS: Salicylate < 5.0 mg/dL (15-30)
[2024-02-08 03:12] LABS: Acetaminophen LAB < 3 mcg/mL (<30)
--- NOTE | 2024-02-08 05:38 | ED.PSYCH ---
HPI - Psych General Chief Complaint: Psychiatric Symptoms Stated Complaint: S.I Time Seen by Provider: 02/08/24 06:28 Source: patient Mode of arrival: ambulatory Limitations: no limitations History of Present Illness HPI Narrative: Patient comes to the emergency room complaining of suicidal ideation. Patient reports SI, no plan. Requesting to talk to the care team. Admits to drug use Related Data Home Medications ?Medication ?Instructions ?Recorded ?Confirmed methadone 90 mg PO DAILY 02/08/24 02/08/24 Previous Rx's ?Medication ?Instructions ?Recorded ketorolac 10 mg tablet 10 mg PO TID 5 days #15 tabs 09/21/21 ibuprofen 600 mg tablet 600 mg PO TID PRN pain #14 tabs 12/03/21 ibuprofen 600 mg tablet 600 mg PO Q6H PRN pain #20 tabs 12/27/21 benzocaine 10 % mucosal gel 1 appl mucous membrane QID PRN 02/08/22 (Anbesol (benzocaine)) mouth irritation #9 grams omeprazole magnesium 20 mg 20 mg PO BID #30 tabs 02/15/22 tablet,delayed release (Prilosec OTC) naproxen 500 mg tablet (Naprosyn) 500 mg PO BID #20 tabs 03/10/22 acetaminophen 500 mg tablet 500 mg PO Q6H PRN fever or pain 05/17/22 (Tylenol Extra Strength) #14 tabs lidocaine 5 % topical patch 1 patch topical DAILY PRN pain #30 05/17/22 (Lidoderm) ea naproxen 500 mg tablet 500 mg PO BID PRN pain 10 days #20 05/17/22 tabs ibuprofen 600 mg tablet 600 mg PO Q6H PRN pain #30 tabs 06/17/22 ibuprofen 600 mg tablet 600 mg PO Q6H PRN fever or pain 10/02/22 #30 tabs ketorolac 10 mg tablet 10 mg PO TID PRN pain 5 days #15 10/29/22 tabs prednisone 20 mg tablet 40 mg (2 x 20 mg) PO DAILY 5 days 10/29/22 #10 tabs doxycycline monohydrate 100 mg 100 mg PO BID 10 days #20 caps 11/29/22 capsule cyclobenzaprine 10 mg tablet 10 mg PO TID PRN muscle spasm #14 12/20/22 tabs lidocaine 5 % topical patch 1 patch topical DAILY #15 ea 12/27/22 (Lidoderm) ibuprofen 400 mg tablet 400 mg PO Q8H PRN fever or pain 01/23/23 #14 tabs polyethylene glycol 3350 17 17 g PO BID #238 grams 02/17/23 gram/dose oral powder (Miralax) Allergies Allergy/AdvReac Type Severity Reaction Status Date / Time Penicillins [PCN] Allergy Mild RASH Verified 02/08/24 00:10 silver AdvReac Intermediate rash Verified 02/08/24 00:10 [From TEGADERM AG MESH] Review of Systems Review of Systems: Constitutional : No Weight loss, No Fever, No Chills, No Night Sweats, No Fatigue, No Malaise ENT/Mouth : No Hearing loss, No Ear Pain, No Nasal Congestion, No Sinus Pain, No Hoarseness, No sore throat, No Rhinorrhea, No Swallowing Difficulty Eyes: No Eye Pain, No Swelling, No Redness, No Foreign Body, No Discharge, No Vision Changes Cardiovascular : No Chest Pain, No SOB, No Dyspnea on Exertion, No Orthopnea, No Edema, No Palpitations Respiratory : No Cough, No Sputum, No Wheezing, No Smoke Exposure, No Dyspnea Gastrointestinal : No Nausea, No Vomiting, No Diarrhea, No Constipation, No abdominal Pain, No Hematochezia, No Melena Genitourinary : no irregular bleeding, No Dysuria, No Urinary Frequency, No Hematuria, No Urinary Incontinence, No Urgency, No Flank Pain, No Urinary Flow Changes, No Hesitancy Musculoskeletal : No joint pain, No Myalgias, No Joint Swelling Skin : No Skin Lesions, No rash Neuro : No Weakness, No Numbness, No Paresthesias, No Loss of Consciousness, No Dizziness, No Headache Psych : No Anxiety/Panic, complaining of depression, vague SI, no HI, no plan Heme/Lymph: No Bruising, No Bleeding,No Lymphadenopathy Endocrine : No Polyuria, No Polydipsia, No Temperature Intolerance [facility] Past Medical History Medical History Anxiety Bipolar 1 disorder Contusion Depression Foot drop, right foot Heart murmur Schizophrenia Surgical History No pertinent past surgical history Social History Social History Alcohol intake: current Alcohol intake frequency: a few times a week Alcohol type: beer and hard liquor Patient Tobacco Use Status: Current everyday Tobacco user Substance Use Type: Crack/Cocaine and Heroin Advance Directives: No Advance Directives Information Provided: No Physical Exam Vital Signs: Vital Signs: Last Vital Signs Temp 96.7 F L 02/08/24 07:56 Pulse 60 02/08/24 07:56 Resp 20 02/08/24 07:56 BP 116/71 02/08/24 07:56 Pulse Ox 100 02/08/24 07:56 O2 Del Method Room Air 02/08/24 07:56 BMI result Body Mass Index 21.3 Const: Other: Appearance: Alert. Oriented X3. No acute distress. Eyes: Pupils equal, round and reactive to light. ENT: Pharynx normal. Neck: Normal inspection. Neck supple. No lymph nodes noted. No crepitus CVS: Normal heart rate and rhythm. Pulses normal. Normal S1 and S2 Respiratory: No respiratory distress. Breath sounds normal. No Wheezing. No rales Abdomen: Soft and nontender. No rigidity. No distention. Skin: Skin warm and dry. Normal skin color. Normal skin turgor. Extremities: No lower extremity edema. No Lacerations. No Rash Neuro: Oriented X 3. No motor deficit. No sensory deficit. Moving all extremities. No slurred speech. CN 2 through 12 grossly intact Psych: calm, cooperative, normal affect Course Reevaluation(s) Reevaluation #1: seen and cleared by crisis will go to detox facility Time: 11:01 Medications Administered Generic Name Dose Route Start Last Admin Trade Name Freq PRN Reason Stop Dose Admin Methadone HCl 30 mg 02/08/24 10:18 02/08/24 10:42 Methadone Hcl 20 Mg/2 Ml Oral.Conc PO 30 mg DAILY MEAGAN Administration Discontinued Medications Generic Name Dose Route Start Last Admin Trade Name Freq PRN Reason Stop Dose Admin Ondansetron HCl 4 mg 02/08/24 01:59 02/08/24 02:04 Ondansetron Odt 4 Mg Tab.Rapdis TRANSLINGU 02/08/24 02:00 4 mg ONCE ONE Administration Medical Decision Making Medical Decision Making MDM Narrative: -my interpretation of labs: Urine positive for opiates, fentanyl, cocaine and marijuana, hematology and chemistry at baseline -care team consult pending -patient here voluntarily -physician observation started at 05:00 Differential Diagnosis Differential Diagnoses: The differential diagnosis associated with the presentation includes (Anxiety, depression, suicidal ideation) Admission/Observation Consideration of admission/observation: Escalation of care including admission/observation considered (Patient under physician observation waiting for the care team for disposition) Lab Data 02/08/24 00:44 02/08/24 00:44 Labs: Lab Results 02/08/24 02/08/24 Range/Units 00:44 01:48 WBC 8.3 (4.8-10.8) X10*3/uL RBC 4.29 L (4.60-5.80) X10*6/uL Hgb 13.7 L (14.0-18.0) g/dl Hct 40.7 L (42.0-52.0) % MCV 94.9 (80.0-98.0) fL MCH 31.9 (27.0-33.0) pg MCHC 33.7 (31.0-36.0) g/dl RDW 12.6 (11.0-16.0) % Plt Count 213 (160-400) X10*3/uL MPV 10.2 (9.4-12.4) fL Immature Gran % (Auto) 0.2 (0.0-0.4) % Neut % (Auto) 68.6 (45-73) % Lymph % (Auto) 25.7 (20-40) % [place] % (Auto) 4.6 (2-11) % Eos % (Auto) 0.5 (0-4) % Baso % (Auto) 0.4 (0-2) % Lymph # (Auto) 2.1 (1.2-4.9) X10*3/uL [place] # (Auto) 0.4 (0.1-1.2) X10*3/uL Eos # (Auto) 0.0 (0.0-0.4) X10*3/uL Baso # (Auto) 0.0 (0.0-0.2) X10*3/uL Abs Immat Gran (auto) 0.02 (0.00-0.03) X10*3/uL Absolute Neuts (auto) 5.7 (2.0-8.3) x10*3/uL Absolute Nucleated RBC 0.000 (0.0-0.012) X10*3/uL Nucleated RBC % (auto) 0.0 (0.0-0.2) /100WBC Sodium 143 (135-145) mmol/L Potassium 3.8 (3.3-5.1) mmol/L Chloride 101 (96-108) mmol/L Carbon Dioxide 33 H (22-29) mmol/L Anion Gap 13 (12-20) BUN 14 (9-16) mg/dL Creatinine 1.04 (0.5-1.4) mg/dL Estim Creat Clear Calc 85.6 Estimated GFR > 60 Random Glucose 113 (60-115) mg/dL Calcium 9.4 D (8.4-10.2) mg/dL Total Bilirubin 0.7 (0.0-1.0) mg/dL AST 46 H (5-37) U/L ALT 55 H (0-40) U/L Alkaline Phosphatase 72 (39-117) U/L Total Protein 7.6 (6.5-8.0) g/dL Albumin 4.6 (3.5-5.0) g/dL Urine Color Yellow Urine Appearance Clear Urine pH 6.0 (5.0-9.0) Ur Specific [place] 1.025 (1.005-1.025) Urine Protein Negative (Neg-Trace) mg/dL Urine Glucose (UA) Negative (Negative) mg/dL Urine Ketones Negative (Negative) mg/dL Urine Blood Negative (Negative) Urine Nitrite Negative (Negative) Ur Leukocyte Esterase Trace H (Negative) Urine RBC 0-2 (0-2) /HPF Urine WBC 0-5 (0-5) /HPF Ur Squamous Epith Cells 0-2 (0-2) /HPF Urine Bacteria None Seen (None Seen) Hyaline Casts 0-2 (0-2) /LPF Salicylates < 5.0 L (15-30) mg/dL Urine Opiates Screen POSITIVE H (Not Detect) Urine Fentanyl Screen POSITIVE H (Not Detect) Acetaminophen < 3 (<30) mcg/mL Ur Barbiturates Screen Not Detected (Not Detect) Ur Phencyclidine Scrn Not Detected (Not Detect) Ur Amphetamines Screen Not Detected (Not Detect) U Benzodiazepines Scrn Not Detected (Not Detect) Urine Cocaine Screen POSITIVE H (Not Detect) U Marijuana (THC) Screen POSITIVE H (Not Detect) Ethyl Alcohol < 10 mg/dL Critical Care Time Critical Care Time Critical Care Time: Yes Total Critical Care Time: 35 Attestation: I have personally provided critical care time. Time includes review of lab data, radiology results, discussion with consultants, and monitoring for potential decompensation. Intervention performed as documented. Discharge Plan Discharge Clinical Impression: Suicidal ideation, Depression, Polysubstance abuse Patient Disposition: Home, Self-Care Instructions: Depression (ED), Polysubstance Abuse (ED) Prescriptions: No Action Anbesol (benzocaine) 10 % gel 1 appl mucous membrane QID PRN (Reason: mouth irritation) Qty: 9 0RF omeprazole magnesium [Prilosec OTC] 20 mg tablet,delayed release (DR/EC) 20 mg PO BID Qty: 30 0RF acetaminophen [Tylenol Extra Strength] 500 mg tablet 500 mg PO Q6H PRN (Reason: fever or pain) Qty: 14 0RF lidocaine [Lidoderm] 5 % adhesive patch,medicated 1 patch topical DAILY MDD remove after 12 hours PRN (Reason: pain) Qty: 30 0RF Rx Instructions: leave on most painful area for up to 12 hrs naproxen 500 mg tablet 500 mg PO BID PRN (Reason: pain) 10 Days Qty: 20 0RF ibuprofen 600 mg tablet 600 mg PO Q6H PRN (Reason: pain) Qty: 30 0RF ketorolac 10 mg tablet 10 mg PO TID PRN (Reason: pain) 5 Days Qty: 15 0RF Rx Instructions: Tolerated IM in the department prednisone 20 mg tablet 40 mg PO DAILY 5 Days Qty: 10 0RF doxycycline monohydrate 100 mg capsule 100 mg PO BID 10 Days Qty: 20 0RF lidocaine [Lidoderm] 5 % adhesive patch,medicated 1 patch topical DAILY Qty: 15 0RF Rx Instructions: leave on most painful area for up to 12 hrs ketorolac 10 mg tablet 10 mg PO TID 5 Days Qty: 15 0RF ibuprofen 600 mg tablet 600 mg PO TID PRN (Reason: pain) Qty: 14 0RF ibuprofen 600 mg tablet 600 mg PO Q6H PRN (Reason: pain) Qty: 20 0RF naproxen [Naprosyn] 500 mg tablet 500 mg PO BID Qty: 20 0RF ibuprofen 600 mg tablet 600 mg PO Q6H PRN (Reason: fever or pain) Qty: 30 0RF cyclobenzaprine 10 mg tablet 10 mg PO TID PRN (Reason: muscle spasm) Qty: 14 0RF ibuprofen 400 mg tablet 400 mg PO Q8H PRN (Reason: fever or pain) Qty: 14 0RF polyethylene glycol 3350 [Miralax] 17 gram/dose powder 17 g PO BID Qty: 238 0RF Rx Instructions: Use twice daily until you have daily, soft formed stools then reduce frequency to daily. Stop if you develop diarrhea. methadone 90 mg PO DAILY Referrals: Physician,Unknown J [Primary Care Provider] - 1 week Interventions: Webb-Suicide Risk Severity Scale Last Done: 02/08/24 04:00 Print Language: Luxembourgish
--- NOTE | 2024-02-08 06:16 | HE.PHANOTE ---
RE METHADONE Patient received methadone from [facility] [phone], Verified by Rosanna OLIVEIRA, last dose was 90 mg on 02/02/24
--- NOTE | 2024-02-08 07:35 | MHC.EDTECH ---
This tech set up a shower for pt this AM along with supplies for oral hygiene needs. RN aware
[2024-02-08 07:56] VITALS: BP 116/71; PULSE 60; RESP 20; TEMP 35.9; O2SAT 100
--- NOTE | 2024-02-08 08:00 | PC.NURSE ---
PT IS A/O X 3 NO SOB/BUNNY NOTED SPEAKS IN FULL SENTENCES. PT C/O L SHOULDER/LOWER FOREARM/LEG 10/ PAIN/DISC. PT DENIES ANY SI/HI/HALLUCINATIONS. PT AMB (I) GAIT STEADY IN HALLWAY AND BTB. PT CLEARLY STATES THAT IS HE IS REQUESTING DETOX . PT AWARE OF PLAN OF CARE. WILL CONTINUE TO MONITOR.
--- NOTE | 2024-02-08 09:00 | PC.NURSE ---
PT SEEN BY CARE TEAM, PT AWARE OF PLAN OF CARE.
[2024-02-08] MEDS: methADONE HCl 20 MG/2 ML ORAL.CONC 30 MG PO (10:42)
[2024-02-08 11:12] VITALS: BP 116/71; PULSE 60; RESP 20; TEMP 36.4; O2SAT 100
== END 2024-02-08 11:25 | disposition home or self-care (01) ==
PROVIDERS: Emergency Provider Emergency Medicine
DX: R45.851 Suicidal ideations (principal); F33.9 Major depressive disorder, recurrent, unspecified; F19.10 Other psychoactive substance abuse, uncomplicated; Z88.0 Allergy status to penicillin
CPT/HCPCS: 36415; 80053; 80143; 80179; 80307; 81001; 85025; 99284; S9485

== ENCOUNTER 2024-03-03 04:03 | Emergency (ER) | payer MEDICAID, SELFPAY ==
[2024-03-03 04:27] VITALS: BP 92/41; PULSE 58; RESP 16; TEMP 36.4; O2SAT 98; BMI 20.9
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
== END 2024-03-03 06:28 | disposition left against medical advice (07) ==
PROVIDERS: Emergency Provider Emergency Medicine
DX: M25.562 Pain in left knee (principal); Z53.21 Procedure and treatment not carried out due to patient leaving prior to being seen by health care provider
CPT/HCPCS: 99281

== ENCOUNTER 2024-05-14 13:36 | Emergency (ER) | payer MEDICAID, SELFPAY ==
--- NOTE | ~2024-05-14 | XR_ITS ---
EXAMINATION: XR FEMUR, LEFT CLINICAL INFORMATION: Pain COMPARISON: None available. TECHNIQUE: AP and lateral views of the left femur were obtained. FINDINGS: The bones and soft tissues are normal. No fracture. No osseous lesions. XR/XR femur LT 2V IMPRESSION: Normal left femur.
[2024-05-14 13:38] VITALS: BP 128/77; BP 128/84; PULSE 72; PULSE 82; RESP 14; TEMP 37.4; O2SAT 92; O2SAT 97; BMI 20.4
[2024-05-14 13:49] VITALS: BP 128/77; PULSE 72; RESP 14; TEMP 37.4; O2SAT 92
--- NOTE | 2024-05-14 13:50 | ED_ITS ---
HPI - Alcohol General Chief Complaint: ETOH/Substance Use Stated Complaint: etoh, cocaine use Time Seen by Provider: 05/14/24 13:42 Source: EMS and old records reviewed Mode of arrival: EMS Limitations: other (intoxication) History of Present Illness ED Provider: MARIA T CAMARA narrative: 39 yo male with PMH of ETOH abuse, gastritis, substance abuse, bipolar - here with c/o using crack today, took his methadone this AM, drank ETOH then was stumbling around no falls seen by bystanders he initially denied fall but now states he fell on left leg - he denies LOC or head trauma. He has no SI states he might want detox he is really hungry and wants food as well. MD complaint: alcohol intoxication and desires rehab Last drink: Just prior to admission Chronic alcohol use: Yes Previous visits for alcohol intoxication: Yes Recent trauma: Yes Associated symptoms: denies other symptoms Treatments prior to arrival: none Related Data Home Medications ?Medication ?Instructions ?Recorded ?Confirmed methadone 90 mg PO DAILY 02/08/24 02/08/24 Previous Rx's ?Medication ?Instructions ?Recorded ketorolac 10 mg tablet 10 mg PO TID 5 days #15 tabs 09/21/21 ibuprofen 600 mg tablet 600 mg PO TID PRN pain #14 tabs 12/03/21 ibuprofen 600 mg tablet 600 mg PO Q6H PRN pain #20 tabs 12/27/21 benzocaine 10 % mucosal gel 1 appl mucous membrane QID PRN 02/08/22 (Anbesol (benzocaine)) mouth irritation #9 grams omeprazole magnesium 20 mg 20 mg PO BID #30 tabs 02/15/22 tablet,delayed release (Prilosec OTC) naproxen 500 mg tablet (Naprosyn) 500 mg PO BID #20 tabs 03/10/22 acetaminophen 500 mg tablet 500 mg PO Q6H PRN fever or pain 05/17/22 (Tylenol Extra Strength) #14 tabs lidocaine 5 % topical patch 1 patch topical DAILY PRN pain #30 05/17/22 (Lidoderm) ea naproxen 500 mg tablet 500 mg PO BID PRN pain 10 days #20 05/17/22 tabs ibuprofen 600 mg tablet 600 mg PO Q6H PRN pain #30 tabs 06/17/22 ibuprofen 600 mg tablet 600 mg PO Q6H PRN fever or pain 10/02/22 #30 tabs ketorolac 10 mg tablet 10 mg PO TID PRN pain 5 days #15 10/29/22 tabs prednisone 20 mg tablet 40 mg (2 x 20 mg) PO DAILY 5 days 10/29/22 #10 tabs doxycycline monohydrate 100 mg 100 mg PO BID 10 days #20 caps 11/29/22 capsule cyclobenzaprine 10 mg tablet 10 mg PO TID PRN muscle spasm #14 12/20/22 tabs lidocaine 5 % topical patch 1 patch topical DAILY #15 ea 12/27/22 (Lidoderm) ibuprofen 400 mg tablet 400 mg PO Q8H PRN fever or pain 01/23/23 #14 tabs polyethylene glycol 3350 17 17 g PO BID #238 grams 02/17/23 gram/dose oral powder (Miralax) Allergies Allergy/AdvReac Type Severity Reaction Status Date / Time Penicillins [PCN] Allergy Mild RASH Verified 05/14/24 13:48 silver AdvReac Intermediate rash Verified 05/14/24 13:48 [From [employer] AG MESH] Review of Systems Review of Systems: Constitutional : No Fever, No Chills, No Fatigue ENT/Mouth : No sore throat, No Rhinorrhea Eyes: No Eye Pain, No Swelling, No Redness Cardiovascular : No Chest Pain, No SOB, No Dyspnea on Exertion Respiratory : No Cough, No Sputum Gastrointestinal : No Nausea, No Vomiting, No Diarrhea, No abdominal Pain Genitourinary : No Dysuria, No Urinary Frequency, No Hematuria, Musculoskeletal : No joint pain, No Myalgias, No Joint Swelling, pos leg pain Skin : No Skin Lesions, No rash Neuro : No Weakness, No Numbness, No Dizziness, no Headache Psych : No Anxiety/Panic, No Depression All other systems reviewed and are negative [facility] Past Medical History Attestation statement: The following information was validated with the patient. Source: old records reviewed Medical History Anxiety Depression Bipolar 1 disorder Heart murmur Contusion Foot drop, right foot Schizophrenia Surgical History No pertinent past surgical history Social History Social History Alcohol intake: current Alcohol intake frequency: a few times a week Alcohol type: beer and hard liquor Patient Tobacco Use Status: Current everyday Tobacco user Substance Use Type: Crack/Cocaine and Heroin Advance Directives: No Do you have a plan to hurt others: No Plan Physical Exam ED Vital Signs: Vital Signs - 24 hr 05/14/24 13:38 05/14/24 13:49 05/14/24 14:00 Temperature 99.3 F 99.3 F Pulse Rate 72 72 69 Respiratory Rate 14 14 13 Blood Pressure 128/77 128/77 119/75 Pulse Oximetry 92 92 100 Oxygen Delivery Method Room Air Room Air BMI result Body Mass Index 20.4 Appearance: Alert. Oriented X3. No acute distress. ETOH odor, slurred speech Eyes: Pupils equal, round and reactive to light. ENT: Pharynx normal. atraumatic Neck: Normal inspection. Neck supple. CVS: Normal heart rate and rhythm. Pulses normal. Respiratory: No respiratory distress. Breath sounds normal. Abdomen: Soft and nontender. Skin: Skin warm and dry. Normal skin color. Normal skin turgor. Extremities: No lower extremity edema. ttp L femur but distal NV Intact no deformity and normal ROM Neuro: Oriented X 3. No motor deficit. No sensory deficit. Course Course Course Narrative: signed out to Cookie pending clinical sobriety Medical Decision Making Medical Decision Making [facility] Narrative: 39 yo male with PMH of ETOH abuse, gastritis, substance abuse, bipolar - here with c/o ETOH use, crack use - he denies falls but then states he hurt his L leg no signs of trauma, no headstrike noted or reported atraumatic exam - at this time he is asking for food on arrival will monitor until sober obtain xray of L leg and reassess. Anticipate sign out to oncoming provider Cookie at 4pm pending clinical sobriety Differential Diagnosis Differential Diagnoses: The differential diagnosis associated with the presentation includes ETOH abuse, polysubstance abuse, intoxication Admission/Observation Consideration of admission/observation: Escalation of care including admission/observation considered physician observation started at 205pm pending clinical sobriety and reassessment Lab Data [facility] Lab Attestation statement: I reviewed the patient's lab results. Independent Interpretation I performed an independent interpretation of an: Plain X-Ray (no fx) Radiology Impression Discussion of test interpretation with radiology: I have reviewed the radiologist's reading. Independent Historian Clinical information obtained from an independent historian. History obtained from or confirmed by: EMS External Record Review External record reviewed: Inpatient record Social Determinants Patient?s care significantly limited by Social Determinants of Health including: Problems related to primary support group Discharge Plan Discharge Clinical Impression: Substance abuse Patient Disposition: Still a Patient Instructions: Polysubstance Abuse (ED) Prescriptions: No Action Anbesol (benzocaine) 10 % gel 1 appl mucous membrane QID PRN (Reason: mouth irritation) Qty: 9 0RF omeprazole magnesium [Prilosec OTC] 20 mg tablet,delayed release (DR/EC) 20 mg PO BID Qty: 30 0RF acetaminophen [Tylenol Extra Strength] 500 mg tablet 500 mg PO Q6H PRN (Reason: fever or pain) Qty: 14 0RF lidocaine [Lidoderm] 5 % adhesive patch,medicated 1 patch topical DAILY MDD remove after 12 hours PRN (Reason: pain) Qty: 30 0RF Rx Instructions: leave on most painful area for up to 12 hrs naproxen 500 mg tablet 500 mg PO BID PRN (Reason: pain) 10 Days Qty: 20 0RF ibuprofen 600 mg tablet 600 mg PO Q6H PRN (Reason: pain) Qty: 30 0RF ketorolac 10 mg tablet 10 mg PO TID PRN (Reason: pain) 5 Days Qty: 15 0RF Rx Instructions: Tolerated IM in the department prednisone 20 mg tablet 40 mg PO DAILY 5 Days Qty: 10 0RF doxycycline monohydrate 100 mg capsule 100 mg PO BID 10 Days Qty: 20 0RF lidocaine [Lidoderm] 5 % adhesive patch,medicated 1 patch topical DAILY Qty: 15 0RF Rx Instructions: leave on most painful area for up to 12 hrs ketorolac 10 mg tablet 10 mg PO TID 5 Days Qty: 15 0RF ibuprofen 600 mg tablet 600 mg PO TID PRN (Reason: pain) Qty: 14 0RF ibuprofen 600 mg tablet 600 mg PO Q6H PRN (Reason: pain) Qty: 20 0RF naproxen [Naprosyn] 500 mg tablet 500 mg PO BID Qty: 20 0RF ibuprofen 600 mg tablet 600 mg PO Q6H PRN (Reason: fever or pain) Qty: 30 0RF cyclobenzaprine 10 mg tablet 10 mg PO TID PRN (Reason: muscle spasm) Qty: 14 0RF ibuprofen 400 mg tablet 400 mg PO Q8H PRN (Reason: fever or pain) Qty: 14 0RF polyethylene glycol 3350 [Miralax] 17 gram/dose powder 17 g PO BID Qty: 238 0RF Rx Instructions: Use twice daily until you have daily, soft formed stools then reduce frequency to daily. Stop if you develop diarrhea. methadone 90 mg PO DAILY Print Language: Serbian
[2024-05-14 14:00] VITALS: BP 119/75; PULSE 69; RESP 13; O2SAT 100
--- NOTE | 2024-05-14 15:13 | PC.NURSE ---
Pt arrives ED via EMS for wandering/stumbling in the community. Reports ETOH and crack use 1 hour prior to arrival. C/o LLE pain. Pt having difficulty staying awake for courier information/worklists. Will allow Pt time to rest before continuing to gather worklist information for accuracy pruposes. Pt being monitored visually and via monitor. VSS NAD noted at this time.
[2024-05-14 16:00] VITALS: BP 101/43; PULSE 58; RESP 11; TEMP 37.1; O2SAT 99
--- NOTE | 2024-05-14 16:16 | MHC.EDTECH ---
pt given urinal, sample sent to the lab, call hunter within reach.
[2024-05-14 16:18] LABS: Amphetamine Screen Urine Not Detected (Not Detect); Barbiturates, Urine Not Detected (Not Detect); Benzodiazepines Screen Urine Not Detected (Not Detect); Buprenorphine Scr Not Detected (Not Detect); Cannabinoid Screen Urine POSITIVE (Not Detect); Cocaine Screen Urine POSITIVE (Not Detect); Fentanyl, urine POSITIVE (Not Detect); Methadone Screen, Urine Positive (Not Detect); Opiate Screen Urine POSITIVE (Not Detect); Oxycodone Screen Urine Not Detected (Not Detect); Phencyclidine Screen Urine Not Detected (Not Detect)
--- NOTE | 2024-05-14 16:32 | MHC.EDTECH ---
pt asked for food- given turkey and ham sandwiches, pudding and apple juice, call hunter within reach.
[2024-05-14] MEDS: Naloxone HCl Nasal TAKE HOME 4 MG SPRAY 8 MG NOSTRILALT (17:52)
--- NOTE | 2024-05-14 17:53 | PC.NURSE ---
Pt awake and eating. VSS and NAD noted. Pt cleared for D/C at this time.
[2024-05-14 17:58] VITALS: BP 102/70; PULSE 61; RESP 14; TEMP 37.1; O2SAT 98
== END 2024-05-14 17:58 | disposition home or self-care (01) ==
PROVIDERS: Emergency Provider Emergency Medicine
DX: F10.129 Alcohol abuse with intoxication, unspecified (principal); Y90.8 Blood alcohol level of 240 mg/100 ml or more; F14.10 Cocaine abuse, uncomplicated; F11.10 Opioid abuse, uncomplicated; Z79.899 Other long term (current) drug therapy
CPT/HCPCS: 73552; 80307; 99284

== ENCOUNTER 2025-03-12 04:31 | Emergency (ER) | payer MEDICAID, SELFPAY ==
--- NOTE | ~2025-03-12 | XR_ITS ---
EXAMINATION: XR SHOULDER, LEFT CLINICAL INFORMATION: pain COMPARISON: None available. TECHNIQUE: AP external rotation, Grashey, scapular Y, and axillary views of the left shoulder. FINDINGS: Glenohumeral and AC joint space is maintained normal. No visible acute fracture, dislocation or subluxation seen. Mild soft tissue swelling is noted. XR/XR shoulder LT min 2V IMPRESSION: Unremarkable left shoulder exam. Electronically signed by: Kendall Johnson MD 03/12/2025 09:53 AM EDT
[2025-03-12 04:39] VITALS: BP 118/80; PULSE 103; O2SAT 97
[2025-03-12 04:43] VITALS: BP 108/72; PULSE 65; RESP 18; TEMP 36.7; O2SAT 100; BMI 19.8
[2025-03-12 04:45] VITALS: PULSE 65
--- OUTSIDE RECORDS SUMMARY | 2025-03-12 04:53 | XMS_ITS ---
Author Organization [facility] Address [address] [place], [place] [id number] Care Team Providers Care Trucker Hand Name Role Phone [facility] Primary Care Provi julian Columba GonzalezaceSarahDebra Cox Unavailable [phone] Kenny Alex Unavailable [phone] Encounters Encounter Location Date Provider Diagnosis [facility] [address] [place] [id number] 01/28/2024 Alex Cox Plan Of Treatment No Information Progress Notes * Alex DOE Marshall B:1985 (40 yo M)Acc No.[id number]:01/28/2024 Case Management Patient:?Alex DOE Provider:Rachael Leung :1985???Age:39 Y???Sex:Male Jose e:01/28/2024 Address:[address], [place], [place] Pcp:[facility] nter Subjective: * Chief Complaints: * ??? * HPI: ???Adolescent Depression Screening:? Client was a N/S. * Medical History:? Objective: Assessment: Plan: * Treatment: * Images: Billing Information: * Visit Code:? * Procedure Codes:? Care Plan Details* * Electronic signature of Alex Cox on 03/12/2025 at 04:52 AM EDT Sign off status: Pending * Provider:Rachael Leung Date:?01/28/2024 Generated for Amrik miles/eGraldo/eTransmitting on:?03/12/2025 04:52 AM EDT History and Physical Notes * HPI (History of Present Illness) Category Sub-Category Detail Notes Category Not es Adolescent Depression Screening Client was a N/S
[2025-03-12 05:01] LABS: MANUAL DIFF FLAG NO
[2025-03-12 05:08] LABS: Basophils Percent Auto 0.3 % (0-2); Eosinophils Absolute Auto 0.1 X10*3/uL (0.0-0.4); Eosinophils Percent Auto 1.3 % (0-4); Hematocrit 38.2 % (42.0-52.0); Hemoglobin 12.9 g/dl (14.0-18.0); Imm Gran Abs Auto 0.03 X10*3/uL (0.00-0.03); Imm Gran Pct Auto 0.3 % (0.0-0.4); Lymphocytes Absolute Auto 1.4 X10*3/uL (1.2-4.9); Lymphocytes Percent Auto 16.5 % (20-40); Mean Corpuscular HGB Conc 33.8 g/dl (31.0-36.0); Mean Corpuscular Volume 94.8 fL (80.0-98.0); Mean Platelet Volume 9.9 fL (9.4-12.4); Monocytes Absolute Auto 0.5 X10*3/uL (0.1-1.2); Monocytes Percent Auto 5.3 % (2-11); Neutrophils Absolute Auto 6.6 x10*3/uL (2.0-8.3); Neutrophils Percent Auto 76.3 % (45-73); Platelet Count 199 X10*3/uL (160-400); Red Blood Count 4.03 X10*6/uL (4.60-5.80); Red Cell Distribution Width 13.1 % (11.0-16.0); White Blood Count 8.7 X10*3/uL (4.8-10.8)
[2025-03-12 05:25] LABS: Acetaminophen LAB < 3 mcg/mL (<30); Alanine Aminotransferase 86 U/L (0-40); Albumin Level 3.9 g/dL (3.5-5.0); Alkaline Phosphatase 72 U/L (39-117); Anion Gap 11 (12-20); Aspartate Amino Transferase 53 U/L (5-37); Bilirubin Total 0.2 mg/dL (0.0-1.0); Blood Urea Nitrogen 13 mg/dL (9-16); Calcium 8.6 mg/dL (8.4-10.2); Carbon Dioxide 28 mmol/L (22-29); Chloride 106 mmol/L (96-108); Creatinine Clr Calc Pharmacy 106.3; Estimated Glomerular Filt Rate > 60; Ethanol < 10 mg/dL; Glucose Random 96 mg/dL (60-115); Potassium 3.9 mmol/L (3.3-5.1); Salicylate < 5.0 mg/dL (15-30); Sodium 141 mmol/L (135-145); Total Protein 6.5 g/dL (6.5-8.0)
--- NOTE | 2025-03-12 05:38 | PC.NURSE ---
safety search was done by security on pt arrival, data conversion developer and vape taken to security locker, no other contraband found.
--- NOTE | 2025-03-12 05:40 | PC.NURSE ---
ham sandwich, crackers, gingerale and cheese stick given per pt request.
--- NOTE | 2025-03-12 07:35 | ED.ALCOHOL ---
HPI - Alcohol General Chief Complaint: ETOH/Substance Use Stated Complaint: L SHOULDER PAIN/FALL/SEEKING DETOX Time Seen by Provider: 03/12/25 07:03 History of Present Illness HPI narrative: Patient is a 40-year-old male presents today complaining of pain to the shoulder. Use heroin use cocaine drank alcohol came to the ED wanting to go to detox denies any SI HI. Related Data Home Medications ?Medication ?Instructions ?Recorded ?Confirmed methadone 90 mg PO DAILY 02/08/24 02/08/24 Previous Rx's ?Medication ?Instructions ?Recorded ketorolac 10 mg tablet 10 mg PO TID 5 days #15 tabs 09/21/21 ibuprofen 600 mg tablet 600 mg PO TID PRN pain #14 tabs 12/03/21 ibuprofen 600 mg tablet 600 mg PO Q6H PRN pain #20 tabs 12/27/21 benzocaine 10 % mucosal gel 1 appl mucous membrane QID PRN 02/08/22 (Anbesol (benzocaine)) mouth irritation #9 grams omeprazole magnesium 20 mg 20 mg PO BID #30 tabs 02/15/22 tablet,delayed release (Prilosec OTC) naproxen 500 mg tablet (Naprosyn) 500 mg PO BID #20 tabs 03/10/22 acetaminophen 500 mg tablet 500 mg PO Q6H PRN fever or pain 05/17/22 (Tylenol Extra Strength) #14 tabs lidocaine 5 % topical patch 1 patch topical DAILY PRN pain #30 05/17/22 (Lidoderm) ea naproxen 500 mg tablet 500 mg PO BID PRN pain 10 days #20 05/17/22 tabs ibuprofen 600 mg tablet 600 mg PO Q6H PRN pain #30 tabs 06/17/22 ibuprofen 600 mg tablet 600 mg PO Q6H PRN fever or pain 10/02/22 #30 tabs ketorolac 10 mg tablet 10 mg PO TID PRN pain 5 days #15 10/29/22 tabs prednisone 20 mg tablet 40 mg (2 x 20 mg) PO DAILY 5 days 10/29/22 #10 tabs doxycycline monohydrate 100 mg 100 mg PO BID 10 days #20 caps 11/29/22 capsule cyclobenzaprine 10 mg tablet 10 mg PO TID PRN muscle spasm #14 12/20/22 tabs lidocaine 5 % topical patch 1 patch topical DAILY #15 ea 12/27/22 (Lidoderm) ibuprofen 400 mg tablet 400 mg PO Q8H PRN fever or pain 01/23/23 #14 tabs polyethylene glycol 3350 17 17 g PO BID #238 grams 02/17/23 gram/dose oral powder (Miralax) Allergies Allergy/AdvReac Type Severity Reaction Status Date / Time Penicillins [PCN] Allergy Mild RASH Verified 03/12/25 04:45 silver AdvReac Intermediate rash Verified 03/12/25 04:45 [From TEGADERM AG MESH] Review of Systems Review of Systems: Denies any SI HI. Positive EtOH yesterday. Positive heroin positive cocaine Yes all other systems are reviewed and are negative [facility] Past Medical History Attestation statement: The following information was validated with the patient. Medical History Anxiety Depression Bipolar 1 disorder Heart murmur Contusion Foot drop, right foot Schizophrenia Surgical History No pertinent past surgical history Social History Social History Alcohol intake: current Alcohol intake frequency: 3 or more drinks per day Alcohol type: beer Patient Tobacco Use Status: Current everyday Tobacco user Smoked in Last 30 Days: Yes Use of substances other than those prescribed or required for medical reasons: Yes Substance Use Type: Crack/Cocaine and Heroin Last Used Substance: Hours (ago) Advance Directives: No Advance Directives Information Provided: No Do you have a plan to hurt others: No Plan Physical Exam ED Vital Signs: Vital Signs - 24 hr 03/12/25 04:43 Temperature 98.1 F Pulse Rate 65 Respiratory Rate 18 Blood Pressure 108/72 Pulse Oximetry 100 Oxygen Delivery Method Room Air BMI result Body Mass Index 19.8 Appearance: Alert. Oriented X3. No acute distress. Eyes: Pupils equal, round and reactive to light. ENT: Pharynx normal. Neck: Normal inspection. Neck supple. No lymph nodes noted. No crepitus CVS: Normal heart rate and rhythm. Pulses normal. Normal S1 and S2 Respiratory: No respiratory distress. Breath sounds normal. No Wheezing. No rales Abdomen: Soft and nontender. No rigidity. No distention. good BS x4 Skin: Skin warm and dry. Normal skin color. Normal skin turgor. Extremities: No lower extremity edema. Neurovascular intact to all extremities. No Lacerations. No Rash. Good range of motion in the left shoulder. Able to abduct adduct internal and externally rotate. There is good pulses distally there is good sensation is good hand grasp is no anatomical snuffbox tenderness there is good sensation over the axillary median radial and ulnar nerves. Skin intact. Neuro: Oriented X 3. No motor deficit. No sensory deficit. Moving all extermities. No slurred speech Medical Decision Making Medical Decision Making [facility] Narrative: Well-appearing no acute distress. Will get x-ray of the shoulder to rule out the possibility of fracture. Recovery team was consulted. At approximately 10:00 patient did not want to wait anymore does not want detox. My interpretation of patient's shoulder x-ray is grossly negative. Patient to be discharged home explained the need to stop using recreational drugs. Patient states understanding Differential Diagnosis Differential Diagnoses: The differential diagnosis associated with the presentation includes Admission/Observation Consideration of admission/observation: Escalation of care including admission/observation considered Consult Healthcare Provider Management of the patient was discussed with: Guide Tour (defensive line coach) Lab Data [facility] Lab Attestation statement: I reviewed the patient's lab results. 03/12/25 04:57 03/12/25 04:57 Labs: Lab Results 03/12/25 Range/Units 04:57 WBC 8.7 (4.8-10.8) X10*3/uL RBC 4.03 L (4.60-5.80) X10*6/uL Hgb 12.9 L (14.0-18.0) g/dl Hct 38.2 L (42.0-52.0) % MCV 94.8 (80.0-98.0) fL MCH 32.0 (27.0-33.0) pg MCHC 33.8 (31.0-36.0) g/dl RDW 13.1 (11.0-16.0) % Plt Count 199 (160-400) X10*3/uL MPV 9.9 (9.4-12.4) fL Immature Gran % (Auto) 0.3 (0.0-0.4) % Neut % (Auto) 76.3 H (45-73) % Lymph % (Auto) 16.5 L (20-40) % [place] % (Auto) 5.3 (2-11) % Eos % (Auto) 1.3 (0-4) % Baso % (Auto) 0.3 (0-2) % Lymph # (Auto) 1.4 (1.2-4.9) X10*3/uL [place] # (Auto) 0.5 (0.1-1.2) X10*3/uL Eos # (Auto) 0.1 (0.0-0.4) X10*3/uL Baso # (Auto) 0.0 (0.0-0.2) X10*3/uL Abs Immat Gran (auto) 0.03 (0.00-0.03) X10*3/uL Absolute Neuts (auto) 6.6 (2.0-8.3) x10*3/uL Absolute Nucleated RBC 0.000 (0.0-0.012) X10*3/uL Nucleated RBC % (auto) 0.0 (0.0-0.2) /100WBC Sodium 141 (135-145) mmol/L Potassium 3.9 (3.3-5.1) mmol/L Chloride 106 (96-108) mmol/L Carbon Dioxide 28 (22-29) mmol/L Anion Gap 11 L (12-20) BUN 13 (9-16) mg/dL Creatinine 0.77 (0.5-1.4) mg/dL Estim Creat Clear Calc 106.3 Estimated GFR > 60 Random Glucose 96 (60-115) mg/dL Calcium 8.6 D (8.4-10.2) mg/dL Total Bilirubin 0.2 (0.0-1.0) mg/dL AST 53 H (5-37) U/L ALT 86 H (0-40) U/L Alkaline Phosphatase 72 (39-117) U/L Total Protein 6.5 (6.5-8.0) g/dL Albumin 3.9 (3.5-5.0) g/dL Salicylates < 5.0 L (15-30) mg/dL Acetaminophen < 3 (<30) mcg/mL Ethyl Alcohol < 10 mg/dL Independent Interpretation I performed an independent interpretation of an: Plain X-Ray (X-ray negative for fracture) Social Determinants Patient?s care significantly limited by Social Determinants of Health including: Alcoholism and drug addiction in family and Problems related to primary support group Discharge Plan Discharge Clinical Impression: Polysubstance abuse Patient Disposition: Home, Self-Care Instructions: Polysubstance Use Disorder (ED) Prescriptions: No Action Anbesol (benzocaine) 10 % gel 1 appl mucous membrane QID PRN (Reason: mouth irritation) Qty: 9 0RF omeprazole magnesium [Prilosec OTC] 20 mg tablet,delayed release (DR/EC) 20 mg PO BID Qty: 30 0RF acetaminophen [Tylenol Extra Strength] 500 mg tablet 500 mg PO Q6H PRN (Reason: fever or pain) Qty: 14 0RF lidocaine [Lidoderm] 5 % adhesive patch,medicated 1 patch topical DAILY MDD remove after 12 hours PRN (Reason: pain) Qty: 30 0RF Rx Instructions: leave on most painful area for up to 12 hrs naproxen 500 mg tablet 500 mg PO BID PRN (Reason: pain) 10 Days Qty: 20 0RF ibuprofen 600 mg tablet 600 mg PO Q6H PRN (Reason: pain) Qty: 30 0RF ketorolac 10 mg tablet 10 mg PO TID PRN (Reason: pain) 5 Days Qty: 15 0RF Rx Instructions: Tolerated IM in the department prednisone 20 mg tablet 40 mg PO DAILY 5 Days Qty: 10 0RF doxycycline monohydrate 100 mg capsule 100 mg PO BID 10 Days Qty: 20 0RF lidocaine [Lidoderm] 5 % adhesive patch,medicated 1 patch topical DAILY Qty: 15 0RF Rx Instructions: leave on most painful area for up to 12 hrs ketorolac 10 mg tablet 10 mg PO TID 5 Days Qty: 15 0RF ibuprofen 600 mg tablet 600 mg PO TID PRN (Reason: pain) Qty: 14 0RF ibuprofen 600 mg tablet 600 mg PO Q6H PRN (Reason: pain) Qty: 20 0RF naproxen [Naprosyn] 500 mg tablet 500 mg PO BID Qty: 20 0RF ibuprofen 600 mg tablet 600 mg PO Q6H PRN (Reason: fever or pain) Qty: 30 0RF cyclobenzaprine 10 mg tablet 10 mg PO TID PRN (Reason: muscle spasm) Qty: 14 0RF ibuprofen 400 mg tablet 400 mg PO Q8H PRN (Reason: fever or pain) Qty: 14 0RF polyethylene glycol 3350 [Miralax] 17 gram/dose powder 17 g PO BID Qty: 238 0RF Rx Instructions: Use twice daily until you have daily, soft formed stools then reduce frequency to daily. Stop if you develop diarrhea. methadone 90 mg PO DAILY Referrals: [facility] [Primary Care Provider] - 03/14/25 (Please go to detox.) Print Language: Faroese
[2025-03-12 09:54] VITALS: BP 108/72; PULSE 65; RESP 18; TEMP 36.7; O2SAT 100
[2025-03-12 10:22] LABS: Amphetamine Screen Urine Not Detected (Not Detect); Barbiturates, Urine Not Detected (Not Detect); Benzodiazepines Screen Urine Not Detected (Not Detect); Buprenorphine Scr Not Detected (Not Detect); Cannabinoid Screen Urine POSITIVE (Not Detect); Cocaine Screen Urine POSITIVE (Not Detect); Fentanyl, urine POSITIVE (Not Detect); Methadone Screen, Urine Not Detected (Not Detect); Opiate Screen Urine Not Detected (Not Detect); Oxycodone Screen Urine Not Detected (Not Detect); Phencyclidine Screen Urine Not Detected (Not Detect)
== END 2025-03-12 09:54 | disposition home or self-care (01) ==
PROVIDERS: Emergency Provider Emergency Medicine Emergency Medical Services; PCP Dentist General Practice
DX: F19.10 Other psychoactive substance abuse, uncomplicated (principal); M25.512 Pain in left shoulder; F11.20 Opioid dependence, uncomplicated; F17.210 Nicotine dependence, cigarettes, uncomplicated
CPT/HCPCS: 36415; 73030; 80053; 80143; 80179; 80307; 85025; 99284

== ENCOUNTER → 2025-03-12 07:36 | Outpatient (BNV) | payer MEDICAID, SELFPAY | PROVIDERS: Emergency Provider Emergency Medicine Emergency Medical Services; PCP Dentist General Practice; Visit Provider Radiology Diagnostic Radiology | DX: M25.512 Pain in left shoulder (principal) | CPT/HCPCS: 73030 ==

== ENCOUNTER 2025-04-11 03:31 | Emergency (ER) | payer MEDICAID, SELFPAY ==
[2025-04-11 03:36] VITALS: BP 131/69; PULSE 70; RESP 16; TEMP 36.1; O2SAT 94; BMI 19.5
--- OUTSIDE RECORDS SUMMARY | 2025-04-11 07:29 | XMS_ITS | Patient Health Record ---
Author Organization [facility] Address [address] [place], [place] [phone] Care Team Providers Care Sanitation Inspector Name Role Phone [facility] Care Prov julian Unavailable Debra Mckenzie Reason For Referral No Information Encounters Encounter Location Date Provider Diagnosis [facility] [address] [place], [place] [phone] 07/26/2024 Debra Mckenzie Plan Of Treatment No Information Insurance Providers Payer Name Payer Address Payer Phone Subscriber Number Group Number Insured Name Patient Relationship to Insured Coverage Start Date Coverage End Date [place] [address] [place] [phone] [id number] Alex Navarrete Self - patient is the insured [employer] [place] [facility] [employer] [address] [place] [phone] LeungSarah Alex Posada Self - patient is the insured 0 0
== END 2025-04-11 07:43 | disposition left against medical advice (07) ==
PROVIDERS: Emergency Provider Emergency Medicine
DX: M25.511 Pain in right shoulder (principal); Z53.21 Procedure and treatment not carried out due to patient leaving prior to being seen by health care provider
CPT/HCPCS: 99281

== ENCOUNTER 2025-04-22 01:32 | Emergency (ER) | payer MEDICAID, SELFPAY ==
--- NOTE | ~2025-04-22 | XR_ITS ---
CLINICAL HISTORY: pain, injury 3 view right shoulder Comparison: None provided Findings: No fractures or dislocations. No significant arthritic change. No erosions. No radiopaque foreign body. IMPRESSION: 1. No acute findings This document has been electronically signed by: Ashley Garvin MD on 04/22/2025 04:03:24
[2025-04-22 01:37] VITALS: BP 120/72; PULSE 80; RESP 16; TEMP 37.1; O2SAT 96; BMI 19.4
--- NOTE | 2025-04-22 01:55 | ED_ITS ---
HPI - Extremity Problem General Chief complaint: Extremity Injury, Upper Stated complaint: right shoulder pain Time Seen by Provider: 04/22/25 01:55 Source: patient Mode of arrival: ambulatory Limitations: no limitations History of Present Illness ED Provider: Rupinder Bell PA-C HPI Narrative: Patient is a 40 year old assigned male at with no reported medical history presenting to the emergency department today with right shoulder pain. Patient states that over the last week he has had right shoulder pain. Patient states that a week ago he fell and injured his right shoulder but has not yet been evaluated for it. Patient denies any dizziness, lightheadedness, abdominal pain, nausea, vomiting, fever, chills, blurry vision, double vision, loss of vision, chest pain, difficulty breathing, shortness of breath, back pain, night sweats, pain with urination, increased urinary frequency, increased urinary urgency, blood in his urine or stool, syncope or a near syncopal episode, bowel incontinence, bladder incontinence, or any other complaints at this time. Onset (ago): week(s) (1) Location: right and upper extremity Relieving factors: nothing Exacerbating factors: nothing Associated symptoms: denies other symptoms Related Data Allergies Allergy/AdvReac Type Severity Reaction Status Date / Time Penicillins Allergy Itching Verified 04/22/25 01:39 Review of Systems Constitutional: Constitutional: Reports no additional constitutional complaints, Denies chills, Denies fever(s) and Denies night sweats Eyes: Eyes: Reports no additional eye complaints, Denies blurry vision, Denies change in vision, Denies diplopia, Denies eye discharge, Denies loss of vision and Denies eye pain ENT: Denies dizziness Cardiovascular: Cardiovascular: Reports no additional cardiovascular complaints, Denies chest pain, Denies lightheadedness, Denies Loss of Consciousness and Denies dyspnea Respiratory: Respiratory: Reports no additional respiratory complaints and Denies dyspnea Gastrointestinal: Gastrointestinal: Reports no additional gastrointestinal complaints, Denies abdominal pain, Denies melena, Denies hematochezia, Denies change in bowel habits and Denies change in stool character Genitourinary: Genitourinary: Reports no additional male genitourinary complaints, Denies hematuria, Denies oliguria, Denies difficulty urinating, Denies dysuria, Denies urinary frequency, Denies urinary hesitancy, Denies urinary incontinence and Denies urinary urgency Musculoskeletal: Musculoskeletal: Reports no additional musculoskeletal complaints, Denies numbness and Denies tingling Comments: right shoulder pain Neurologic: Denies dizziness, Denies loss of vision, Denies numbness and Denies tingling Psychiatric: Psychiatric: Reports no additional psychiatric complaints Endocrine: Endocrine: Reports no additional endocrine complaints Hematologic/Lymphatic: Hematologic/Lymphatic: Reports no additional hematologic/lymphatic complaints Allergic/Immunologic: Allergic/Immunologic: Reports no additional allergic/immunologic complaints PMFSH Past Medical History Attestation statement: The following information was validated with the patient. Source: old records reviewed and nursing notes reviewed Social History Social History Advance Directives: No Physical Exam Vital Signs: Vital Signs: Last Vital Signs Temp 98.6 F 04/22/25 04:07 Pulse 72 04/22/25 04:07 Resp 16 04/22/25 04:07 BP 116/64 04/22/25 04:07 Pulse Ox 97 04/22/25 04:07 O2 Del Method Room Air 04/22/25 04:07 BMI result Body Mass Index 19.4 Const: General: cooperative, no acute distress, alert and awake Nutritional Appearance: well nourished Orientation/consciousness: patient oriented x3 HEENT: Head: Yes normal to inspection and Yes atraumatic Ears: hearing grossly normal bilaterally and external ears normal General nose exam: Normal external nose present, no nasal discharge noted and no epistaxis Face and sinus: Yes normal facial exam, No abrasion and No laceration Mouth: Normal oral and palatal mucosa present, no drooling and no muffled voice Eyes: General: appearance normal, both eyes and all related structures Periorbital: periorbital findings normal Eyelids: Yes eyelids normal Conjunctivae: conjunctivae normal Pupils: Equal, round and reactive pupils present EOM: EOMs intact bilaterally Neck: Neck: Yes normal visual inspection, Yes full ROM and Yes no lymphadenopathy Resp: Effort & Inspection: normal respiratory effort and able to speak in complete sentences Neuro: General: patient oriented x3, moves all extremities and CN's II-XI intact bilaterally Cranial nerves: Yes Equal, round and reactive pupils present Cognition (Neuro): normal cognition Extrem: General: Yes normal to inspection, Yes full ROM and Yes capillary refill normal Psych: Appearance: grossly normal Mental Status: mental status grossly normal Affect: normal affect Attitude: cooperative Thought process: Normal thought process present Thought content: Normal thought content present Insight: Good insight present (Psych) Medications Administered Discontinued Medications Generic Name Dose Route Start Last Admin Trade Name Jairo PRN Reason Stop Dose Admin Oxycodone HCl 10 mg 04/22/25 02:05 04/22/25 02:30 Oxycodone Hcl Immed Release 5 Mg Tablet PO 04/22/25 02:06 10 mg ONCE ONE Administration Medical Decision Making Medical Decision Making MDM Narrative: Patient is a 40 year old assigned male at with no reported medical history presenting to the emergency department today with right shoulder pain. Patient's physical exam was unremarkable. Patient's right shoulder x-ray showed no acute process. I explained my physical exam findings as well as all test results to the patient. I answered all questions asked by the patient. I stressed the importance of the patient taking his medication as directed (either prescribed or as the over the counter packaging recommends). I stressed the importance of the patient following up with his primary care provider. I stressed the importance of the patient returning to the emergency department immediately if his symptoms were to worsen or if he were to develop any dizziness, shortness of breath, difficulty breathing, chest pain, blurry vision, loss of vision, nausea, vomiting, abdominal pain, fever, chills, back pain, or any other complaints. Patient verbalized agreement and understanding with this treatment plan and discharge. Differential Diagnosis Differential Diagnoses: The differential diagnosis associated with the presentation includes Right shoulder pain Right shoulder contusion Admission/Observation Consideration of admission/observation: Escalation of care including admission/observation considered Patient would have been admitted to the hospital had his work up had any findings where hospital admission was appropriate and his clinical presentation warranted hospital admission. Independent Interpretation I performed an independent interpretation of an: Plain X-Ray Interpretation: My interpretation is in agreement with the radiologist's impression of this imaging study. CLINICAL HISTORY: pain, injury 3 view right shoulder Comparison: None provided Findings: No fractures or dislocations. No significant arthritic change. No erosions. No radiopaque foreign body. IMPRESSION: 1. No acute findings This document has been electronically signed by: Ashley Garvin MD on 04/22/2025 04:03:24 Dictated By: Ashley Garvin MD Signed By: Electronically signed by Ashley Garvin MD 04/22/25 0404 Radiology Impression Discussion of test interpretation with radiology: I have reviewed the radiologist's reading. Discharge Plan Discharge Clinical Impression: Acute shoulder pain Qualifiers: Laterality: right Qualified Code(s): M25.511 - Pain in right shoulder Patient Disposition: Home, Self-Care Instructions: Shoulder Pain (ED) Additional Instructions: Follow up with your primary care provider. Return to the emergency department immediately if your symptoms worsen or if you develop any numbness, tingling, dizziness, shortness of breath, difficulty breathing, chest pain, blurry vision, loss of vision, nausea, vomiting, abdominal pain, fever, chills, back pain, or any other complaints. Please see the information below about our Patient Portal. If you are not yet enrolled in the [facility] Patient Portal, you will receive an enrollment email invitation following your visit to any [facility] setting. You may also self-enroll in the Patient Portal by visiting our website: [email or web address] The following information is required to access the Patient Portal: - Your [facility] Medical Record Number - Your personal home email address (must match what is in your electronic medical record, Registration staff can assist with this) - Name - Date of Capabilities of the Patient Portal: - Message some providers - View upcoming appointments - Access your health summary, medical history, and visit history - View current conditions and allergies - View procedure and lab results - View your medications, including guidelines, side effects, and precautions - Complete pre-appointment questionnaires requested by your provider - Ready summary reports of your office visits and procedures To access the Patient Portal Mobile Leila, follow these directions: - Search [employer] in the Leila Store or Google Play Store - Download the Leila - Search for [facility] - Enter your login/password Referrals: [place],[facility] [Primary Care Provider, Primary Care] Interventions: ED Discharge Assessment Last Done: 04/22/25 04:07 Discharge Date/Time: 04/22/25 04:07 Print Language: Hungarian
[2025-04-22] MEDS: oxyCODONE HCl Immed Release 5 MG TABLET 10 MG PO (02:30)
[2025-04-22 04:07] VITALS: BP 116/64; PULSE 72; RESP 16; TEMP 37; O2SAT 97
== END 2025-04-22 04:07 | disposition home or self-care (01) ==
PROVIDERS: Emergency Provider Internal Medicine; PCP Dentist General Practice
DX: M25.511 Pain in right shoulder (principal)
CPT/HCPCS: 73030; 99283

== ENCOUNTER → 2025-04-22 01:56 | Outpatient (BNV) | payer MEDICAID, SELFPAY | PROVIDERS: Emergency Provider Internal Medicine; PCP Dentist General Practice; Visit Provider Radiology Diagnostic Radiology | DX: M25.511 Pain in right shoulder (principal) | CPT/HCPCS: 73030 ==

== ENCOUNTER 2025-05-03 14:01 | Emergency (ER) | payer MEDICAID, SELFPAY ==
[2025-05-03] VITALS (9 sets, daily range): BP systolic 98–122; BP diastolic 49–78; PULSE 52–66; RESP 13–25; TEMP 36.3–36.9; O2SAT 96–100; BMI 21.3
--- NOTE | ~2025-05-03 | CT_ITS ---
EXAMINATION: CT HEAD WITHOUT CONTRAST CLINICAL INFORMATION: Altered mental status COMPARISON: 08/24/2021 TECHNIQUE: Contiguous axial imaging was performed from the skull base to vertex without intravenous administration of contrast. This CT examination was performed using dose optimization techniques as appropriate, variously including the following: *Automated exposure control *Adjustment of mA and/or kV according to patient size (this includes techniques or standardized protocols for targeted exams where dose is matched to indication/reason for exam; i.e. extremities or head) *Use of iterative reconstruction technique DLP: 910 mGY*cm FINDINGS: There is no acute ischemic change. There is no intracranial hemorrhage. There is no mass-effect or midline shift. Basal cisterns and ventricles are within normal limits for age/cerebral volume. Orbits are symmetrical and unremarkable. Paranasal sinuses and mastoid air cells are pneumatized. There are no bony abnormalities. CT/CT head/brain wo IV con IMPRESSION: No acute intracranial abnormality. Electronically signed by: Emir Pereira MD 05/03/2025 03:40 PM EDT
--- NOTE | ~2025-05-03 | XR_ITS ---
EXAMINATION: XR CHEST 1 VIEW HISTORY: sob COMPARISON: Comparison is made with the prior examination dated 09/21/2022. FINDINGS: A single AP portable view of the chest performed at 2:29 PM is submitted. The lungs are expanded and clear. There is no pleural effusion, pneumothorax, or pulmonary vascular congestion. The heart is normal in size. The bones are intact. XR/XR chest 1V IMPRESSION: No acute cardiopulmonary abnormality. Electronically signed by: Kirt Weiss MD 05/03/2025 02:42 PM EDT
[2025-05-03] MEDS: Naloxone HCl Nasal 4 MG SPRAY NOSTRILALT ×2 (14:10→14:15)
[2025-05-03 14:22] LABS: Glucose, Whole Blood 144 mg/dL (60-115)
--- NOTE | 2025-05-03 14:26 | ECG_ITS ---
Test Reason : od Blood Pressure : */* mmHG Vent. Rate : 56 BPM Atrial Rate : 56 BPM P-R Int : 226 ms QRS Dur : 72 ms QT Int : 422 ms P-R-T Axes : 80 77 63 degrees QTcB Int : 407 ms Sinus bradycardia with 1st degree A-V block Otherwise normal ECG When compared with ECG of 17-May-2022 09:52, No significant change was found Referred By: Yesenia Frazier Electronically Signed By: DOUG COOK MD
--- NOTE | 2025-05-03 14:28 | PC.NURSE ---
Ptarrived vomiting by EMS then rapidly became unresponsive. Provider called to room 4 mg Narcan administered intranasally X2 without effect. Pt responsive after IV narcan administered. States he tok crack and when asked about how much pt only states enough
--- NOTE | 2025-05-03 14:29 | ED.OVERDOSE ---
HPI - Overdose General Chief Complaint: Altered Mental Status Stated Complaint: OD, Narcan given Time Seen by Provider: 05/03/25 14:11 History of Present Illness HPI Narrative: Patient is a 40-year-old male abuse. History of schizophrenia. Patient found unresponsive. Decreased respiratory rate. Was given Narcan 4 mg which woke him up. Then patient became lethargic again. Related Data Home Medications ?Medication ?Instructions ?Recorded ?Confirmed methadone 90 mg PO DAILY 02/08/24 02/08/24 Previous Rx's ?Medication ?Instructions ?Recorded ketorolac 10 mg tablet 10 mg PO TID 5 days #15 tabs 09/21/21 ibuprofen 600 mg tablet 600 mg PO TID PRN pain #14 tabs 12/03/21 ibuprofen 600 mg tablet 600 mg PO Q6H PRN pain #20 tabs 12/27/21 benzocaine 10 % mucosal gel 1 appl mucous membrane QID PRN 02/08/22 (Anbesol (benzocaine)) mouth irritation #9 grams omeprazole magnesium 20 mg 20 mg PO BID #30 tabs 02/15/22 tablet,delayed release (Prilosec OTC) naproxen 500 mg tablet (Naprosyn) 500 mg PO BID #20 tabs 03/10/22 acetaminophen 500 mg tablet 500 mg PO Q6H PRN fever or pain 05/17/22 (Tylenol Extra Strength) #14 tabs lidocaine 5 % topical patch 1 patch topical DAILY PRN pain #30 05/17/22 (Lidoderm) ea naproxen 500 mg tablet 500 mg PO BID PRN pain 10 days #20 05/17/22 tabs ibuprofen 600 mg tablet 600 mg PO Q6H PRN pain #30 tabs 06/17/22 ibuprofen 600 mg tablet 600 mg PO Q6H PRN fever or pain 10/02/22 #30 tabs ketorolac 10 mg tablet 10 mg PO TID PRN pain 5 days #15 10/29/22 tabs prednisone 20 mg tablet 40 mg (2 x 20 mg) PO DAILY 5 days 10/29/22 #10 tabs doxycycline monohydrate 100 mg 100 mg PO BID 10 days #20 caps 11/29/22 capsule cyclobenzaprine 10 mg tablet 10 mg PO TID PRN muscle spasm #14 12/20/22 tabs lidocaine 5 % topical patch 1 patch topical DAILY #15 ea 12/27/22 (Lidoderm) ibuprofen 400 mg tablet 400 mg PO Q8H PRN fever or pain 01/23/23 #14 tabs polyethylene glycol 3350 17 17 g PO BID #238 grams 02/17/23 gram/dose oral powder (Miralax) Allergies Allergy/AdvReac Type Severity Reaction Status Date / Time Penicillins (PCN) Allergy Mild RASH Verified 05/03/25 14:52 silver (From TEG[employer]ER[employer] AG AdvReac Intermediate rash Verified 05/03/25 14:52 MESH) Review of Systems Review of Systems: Unable to obtain review of systems secondary to patient's condition [facility] Past Medical History Medical History Anxiety Depression Bipolar 1 disorder Heart murmur Contusion Foot drop, right foot Schizophrenia Surgical History No pertinent past surgical history Social History Social History Alcohol intake: current Alcohol intake frequency: 3 or more drinks per day Alcohol type: beer Patient Tobacco Use Status: Current everyday Tobacco user Substance Use Type: Crack/Cocaine and Heroin Physical Exam Vital Signs: Vital Signs: Last Vital Signs Temp 97.3 F 05/03/25 14:46 Pulse 54 05/03/25 15:25 Resp 19 05/03/25 15:25 BP 101/59 L 05/03/25 15:25 Pulse Ox 100 05/03/25 15:25 O2 Del Method Room Air 05/03/25 15:25 BMI result Body Mass Index 21.3 Appearance: Lethargic minimally breathing Eyes: Pupils equal, round and reactive to light. ENT: Pharynx normal. Neck: Normal inspection. Neck supple. No lymph nodes noted. No crepitus CVS: Normal heart rate and rhythm. Pulses normal. Normal S1 and S2 Respiratory: Shallow breathing Abdomen: Soft and nontender. No rigidity. No distention. good BS x4 Skin: Skin warm and dry. Normal skin color. Normal skin turgor. Extremities: No lower extremity edema. Neurovascular intact to all extremities. No Lacerations. No Rash Neuro: Minimal response to painful stimuli Reexamination at 03:48 grossly arousable moving all extremity cranial nerves grossly intact Medications Administered Discontinued Medications Generic Name Dose Route Start Last Admin Trade Name Jairo PRN Reason Stop Dose Admin Sodium Chloride 1,000 mls @ 999 mls/hr 05/03/25 14:30 05/03/25 14:44 Ns IV 05/03/25 15:30 999 mls/hr .Q1H1M MEAGAN Administration Sodium Chloride 1,000 mls @ 999 mls/hr 05/03/25 14:30 05/03/25 14:44 Ns IV 05/03/25 15:30 999 mls/hr .Q1H1M MEAGAN Administration Naloxone HCl 4 mg 05/03/25 14:23 05/03/25 14:10 Naloxone Hcl Nasal 4 Mg [place] NOSTRILALT 05/03/25 14:24 4 mg ONCE ONE Administration Naloxone HCl 4 mg 05/03/25 14:24 05/03/25 14:15 Naloxone Hcl Nasal 4 Mg [place] NOSTRILALT 05/03/25 14:25 4 mg ONCE ONE Administration Naloxone HCl 2 mg 05/03/25 14:24 05/03/25 14:20 Naloxone Hcl 2 Mg/2 Ml Syringe IVPUSH 05/03/25 14:25 2 mg ONCE ONE Administration Medical Decision Making Medical Decision Making MDM Narrative: Patient's sugar was over 100 no evidence for hypoglycemia. Prior to my arrival at bedside patient had decreased respiratory rate was given additional dose of Narcan. This is a total of 8 mg for from EMS for from us. Still no response. Additional 4 was given. Respiratory rate is still low. Patient shallow breathing. O2 sat was normal. Pupils were pinpoint by my exam. Additional 2 mg IV was given. Labs ordered. EKG ordered. After 14 mg of Narcan altogether for nasal followed by another 4 nasal in the ED followed by another 4 nasal in the ED. followed by 2 mg of IV Narcan. Patient was awake enough to tell us that he took some crack cocaine along with the narcotics. Still very lethargic. Will still get CT scan and labs. Will monitor very closely for airway closure. Now arousable to painful stimuli. Localizes to pain. A chest x-ray is done. My interpretation patient's chest x-ray is grossly negative there is no pneumonia there is no pneumothorax. Patient's vital signs showed a normal O2 sat 98 % on room air. Blood pressure is 109/66. Will be going to CAT scan CT scan head was grossly negative. No acute evidence of bleeding. Patient became more arousable asking for girlfriend now is talkative. Still lethargic. Will get substance abuse athletic coach to evaluate patient. Discharged when ambulatory. Differential Diagnosis Differential Diagnoses: The differential diagnosis associated with the presentation includes Polysubstance abuse Admission/Observation Consideration of admission/observation: Escalation of care including admission/observation considered Consult Healthcare Provider Management of the patient was discussed with: Supervisor Varnish (Recovery team) Lab Data MDM Lab Attestation statement: I reviewed the patient's lab results. Labs: Lab Results 05/03/25 Range/Units 14:18 POC Glucose 144 H (60-115) mg/dL Independent Interpretation I performed an independent interpretation of an: EKG (Sinus heart rate is 60 [place] QRS QTC normal no chew ST segment elevation), Plain X-Ray (Chest x-ray negative for pneumonia) and CT Scan (CT head grossly negative) Radiology Impression Discussion of test interpretation with radiology: I have reviewed the radiologist's reading. Chronic Conditions Polysubstance abuse, schizophrenia Social Determinants Patient?s care significantly limited by Social Determinants of Health including: Alcoholism and drug addiction in family and Problems related to primary support group Critical Care Time Critical Care Time Critical Care Time: Yes Total Critical Care Time: 40 Attestation: I have personally provided 40 minutes of critical care time exclusive of time spent on separately billable procedures. ?Time includes review of lab data, radiology results, discussion with consultants, and monitoring for potential decompensation. ?Interventions were performed as documented above Discharge Plan Discharge Clinical Impression: Schizophrenia, Polysubstance abuse Patient Disposition: Still a Patient Instructions: Schizophrenia (ED), Polysubstance Use Disorder (ED) Prescriptions: No Action Anbesol (benzocaine) 10 % gel 1 appl mucous membrane QID PRN (Reason: mouth irritation) Qty: 9 0RF omeprazole magnesium [Prilosec OTC] 20 mg tablet,delayed release (DR/EC) 20 mg PO BID Qty: 30 0RF acetaminophen [Tylenol Extra Strength] 500 mg tablet 500 mg PO Q6H PRN (Reason: fever or pain) Qty: 14 0RF lidocaine [Lidoderm] 5 % adhesive patch,medicated 1 patch topical DAILY MDD remove after 12 hours PRN (Reason: pain) Qty: 30 0RF Rx Instructions: leave on most painful area for up to 12 hrs naproxen 500 mg tablet 500 mg PO BID PRN (Reason: pain) 10 Days Qty: 20 0RF ibuprofen 600 mg tablet 600 mg PO Q6H PRN (Reason: pain) Qty: 30 0RF ketorolac 10 mg tablet 10 mg PO TID PRN (Reason: pain) 5 Days Qty: 15 0RF Rx Instructions: Tolerated IM in the department prednisone 20 mg tablet 40 mg PO DAILY 5 Days Qty: 10 0RF doxycycline monohydrate 100 mg capsule 100 mg PO BID 10 Days Qty: 20 0RF lidocaine [Lidoderm] 5 % adhesive patch,medicated 1 patch topical DAILY Qty: 15 0RF Rx Instructions: leave on most painful area for up to 12 hrs ketorolac 10 mg tablet 10 mg PO TID 5 Days Qty: 15 0RF ibuprofen 600 mg tablet 600 mg PO TID PRN (Reason: pain) Qty: 14 0RF ibuprofen 600 mg tablet 600 mg PO Q6H PRN (Reason: pain) Qty: 20 0RF naproxen [Naprosyn] 500 mg tablet 500 mg PO BID Qty: 20 0RF ibuprofen 600 mg tablet 600 mg PO Q6H PRN (Reason: fever or pain) Qty: 30 0RF cyclobenzaprine 10 mg tablet 10 mg PO TID PRN (Reason: muscle spasm) Qty: 14 0RF ibuprofen 400 mg tablet 400 mg PO Q8H PRN (Reason: fever or pain) Qty: 14 0RF polyethylene glycol 3350 [Miralax] 17 gram/dose powder 17 g PO BID Qty: 238 0RF Rx Instructions: Use twice daily until you have daily, soft formed stools then reduce frequency to daily. Stop if you develop diarrhea. methadone 90 mg PO DAILY Print Language: Unable To Collect
--- NOTE | 2025-05-03 14:58 | PC.NURSE ---
Pt seen by provider again. Remains unresponsive at times but VS remain stable. HOB elevated- Pt maintaining airway well. Pt with IVF infusing as ordered.
[2025-05-03 15:50] LABS: Hematocrit 37.1 % (42.0-52.0); Hemoglobin 12.8 g/dl (14.0-18.0); Imm Gran Abs Auto 0.04 X10*3/uL (0.00-0.03); Imm Gran Pct Auto 0.4 % (0.0-0.4); Lymphocytes Absolute Auto 1.9 X10*3/uL (1.2-4.9); MANUAL DIFF FLAG NO; Mean Corpuscular HGB Conc 34.5 g/dl (31.0-36.0); Mean Corpuscular Hemoglobin 32.6 pg (27.0-33.0); Mean Corpuscular Volume 94.4 fL (80.0-98.0); NRBC Abs Auto 0.000 X10*3/uL (0.0-0.012); NRBC Pct Auto 0.0 /100WBC (0.0-0.2); Platelet Count 200 X10*3/uL (160-400); Red Blood Count 3.93 X10*6/uL (4.60-5.80); White Blood Count 10.6 X10*3/uL (4.8-10.8)
[2025-05-03 15:52] LABS: Venous Blood Gas Refer to POC result
[2025-05-03 15:53] LABS: VBG HCO3 35 mmol/L (22-26); VBG O2 % Saturation 37.0 %
[2025-05-03 16:05] LABS: Alanine Aminotransferase 72 U/L (0-40); Albumin Level 3.4 g/dL (3.5-5.0); Alkaline Phosphatase 68 U/L (39-117); Anion Gap 10 (12-20); Aspartate Amino Transferase 72 U/L (5-37); Blood Urea Nitrogen 11 mg/dL (9-16); Calcium 7.5 mg/dL (8.4-10.2); Carbon Dioxide 30 mmol/L (22-29); Chloride 105 mmol/L (96-108); Creatinine Clr Calc Pharmacy 95.8; Estimated Glomerular Filt Rate > 60; Lipase 15 U/L (8-78); Potassium 3.8 mmol/L (3.3-5.1); Sodium 141 mmol/L (135-145); Total Protein 5.6 g/dL (6.5-8.0)
[2025-05-03 16:25] LABS: Ammonia 42 umol/L (13-55)
[2025-05-03] MEDS: Naloxone HCl Nasal TAKE HOME 4 MG SPRAY 8 MG NOSTRILALT ×2 (16:41→16:42)
[2025-05-03 19:19] LABS: Appearance Urine Clear; Glucose Urine UA Negative (Negative); PH 8.0 (5.0-9.0); Specific Gravity - Urine 1.015 (1.005-1.025)
== END 2025-05-03 21:00 | disposition still patient (30) ==
PROVIDERS: Emergency Medicine Emergency Medical Services; Emergency Provider Emergency Medicine; PCP Dentist General Practice
DX: F19.10 Other psychoactive substance abuse, uncomplicated (principal); F20.9 Schizophrenia, unspecified; R53.83 Other fatigue; F11.20 Opioid dependence, uncomplicated; F17.200 Nicotine dependence, unspecified, uncomplicated; Z79.899 Other long term (current) drug therapy
CPT/HCPCS: 36415; 70450; 71045; 80048; 80076; 80307; 81001; 82140; 82550; 82803; 82947; 83690; 85025; 93005; 96361; 96374; 99285; 99291; J2312; S9485

== ENCOUNTER → 2025-05-03 14:26 | Outpatient (BNV) | payer MEDICAID, SELFPAY | PROVIDERS: Emergency Provider Emergency Medicine; Visit Provider Internal Medicine Cardiovascular Disease | DX: I44.0 Atrioventricular block, first degree (principal); R00.1 Bradycardia, unspecified | CPT/HCPCS: 93010 ==

== ENCOUNTER → 2025-05-03 14:28 | Outpatient (BNV) | payer MEDICAID, SELFPAY | PROVIDERS: Emergency Provider Emergency Medicine Emergency Medical Services; Visit Provider Radiology Diagnostic Radiology | DX: R41.82 Altered mental status, unspecified (principal); R06.02 Shortness of breath | CPT/HCPCS: 70450; 71045 ==

== ENCOUNTER 2025-05-04 19:30 | Emergency (ER) | payer MEDICAID, SELFPAY ==
[2025-05-04 19:36] VITALS: BP 123/80; PULSE 84; RESP 16; TEMP 37; O2SAT 97
--- NOTE | 2025-05-04 19:41 | ECG_ITS ---
Test Reason : OD Blood Pressure : */* mmHG Vent. Rate : 79 BPM Atrial Rate : 79 BPM P-R Int : 184 ms QRS Dur : 86 ms QT Int : 368 ms P-R-T Axes : 84 68 56 degrees QTcB Int : 421 ms Normal sinus rhythm Normal ECG When compared with ECG of 03-May-2025 14:40, PA interval has decreased Referred By: Generic ED Physician Electronically Signed By: DOUG COOK MD
[2025-05-04 19:42] VITALS: BP 162/70; PULSE 100; O2SAT 97; BMI 22.8
--- NOTE | 2025-05-04 20:33 | ED_ITS ---
HPI - General Adult General Chief complaint: Overdose Stated complaint: heroin overdose 4mg narcan Time Seen by Provider: 05/04/25 20:32 Source: patient and EMS Mode of arrival: EMS Limitations: no limitations History of Present Illness ED Provider: Pelon GARCIA HPI narrative: Patient is a 40-year-old male presenting to the ED via EMS for reported opiate overdose. Patient admits to snorting heroin earlier today to get high, denies SI, patient does not feel that he overdosed and does not know why EMS gave him Narcan. The patient denies any acute somatic complaint, denies vomiting, fever, chest pain, shortness of breath, abdominal pain or recent injury. The patient is requesting discharge. Related Data Home Medications ?Medication ?Instructions ?Recorded ?Confirmed methadone 90 mg PO DAILY 02/08/2407/25 Previous Rx's ?Medication ?Instructions ?Recorded ketorolac 10 mg tablet 10 mg PO TID 5 days #15 tabs 09/21/21 ibuprofen 600 mg tablet 600 mg PO TID PRN pain #14 t abs 12/03/21 ibuprofen 600 mg tablet 600 mg PO Q6H PRN pain #20 t abs 12/27/21 benzocaine 10 % mucosal gel 1 appl mucous membrane QID PRN 02/08/22 (Anbesol (benzocaine)) mouth irritation #9 grams omeprazole magnesium 20 mg 20 mg PO BID #30 tabs 02/15 tablet,delayed release (Prilosec OTC) naproxen 500 mg tablet (Naprosyn) 500 mg PO BID #20 ta bs 03/10/22 acetaminophen 500 mg tablet 500 mg PO Q6H PRN fever or pain 05/17/22 (Tylenol Extra Strength) #14 tabs lidocaine 5 % topical patch 1 patch topical DAILY PRN pain #30 05/17/22 (Lidoderm) ea naproxen 500 mg tablet 500 mg PO BID PRN pain 10 da ys #20 05/17/22 tabs ibuprofen 600 mg tablet 600 mg PO Q6H PRN pain #30 t abs 06/17/22 ibuprofen 600 mg tablet 600 mg PO Q6H PRN fever or p ain 10/02/22 #30 tabs ketorolac 10 mg tablet 10 mg PO TID PRN pain 5 days #15 10/29/22 tabs prednisone 20 mg tablet 40 mg (2 x 20 mg) PO DAILY 5 days 10/29/22 #10 tabs doxycycline monohydrate 100 mg 100 mg PO BID 10 days # 20 caps 11/29/22 capsule cyclobenzaprine 10 mg tablet 10 mg PO TID PRN muscle s pasm #14 12/20/22 tabs lidocaine 5 % topical patch 1 patch topical DAILY #15 ea 12/27/22 (Lidoderm) ibuprofen 400 mg tablet 400 mg PO Q8H PRN fever or p ain 01/23/23 #14 tabs polyethylene glycol 3350 17 17 g PO BID #238 grams gram/dose oral powder (Miralax) Allergies Allergy/AdvReac Type Severity Reaction Status Date / Time Penicillins (PCN) Allergy Mild RASH Verified 05/04/25 19:46 silver (From TEGADERM AG AdvReac Intermediate rash Verified 05/04/25 19:46 MESH) Review of Systems Review of Systems: Yes all other systems are reviewed and are negative PMFSH Past Medical History Medical History Anxiety Depression Bipolar 1 disorder Heart murmur Contusion Foot drop, right foot Schizophrenia Surgical History No pertinent past surgical history Social History Social History Alcohol intake: current Alcohol intake frequency: 3 or more drinks per day Alcohol type: beer Patient Tobacco Use Status: Current everyday Tobacco user Substance Use Type: Crack/Cocaine and Heroin Advance Directives: No Advance Directives Information Provided: No Do you have a plan to hurt others: No Plan Physical Exam ED Vital Signs: Vital Signs - 24 hr 05/04/25 19:36 Temperature 98.6 F Pulse Rate 84 Respiratory Rate 16 Blood Pressure 123/80 Pulse Oximetry 97 Oxygen Delivery Method Room Air BMI result Body Mass Index 22.8 CONSTITUTIONAL: The patient appears non-toxic, well nourished and in no acute d istress. Vital signs as documented. HEAD: Atraumatic, normocephalic. EYES: EOMs grossly intact, pupils equal, conjunctiva clear, no exudate. ENT: Nares patent, no discharge. Airway patent, no audible stridor, visible mucosa is pink and moist without noted lesions. NECK: Trachea is midline, no obvious masses or gross abnormalities. CHEST: Symmetric movement, normal appearance. LUNGS: LS present and CTAB, no w/r/r. Non-labored work of breathing. CARDIAC: Regular Rhythm, S1/S2 appreciated, no murmurs, rubs or gallops. ABDOMEN: Abdomen soft and non-tender x4 quadrants, no palpable masses or orga nomegaly. : Deferred. EXTREMITIES: Normal tone, moves all extremities spontaneously without reported pain. No obvious acute injury or deformity noted. NEURO: Alert and oriented x3, CN II-XII appear grossly intact. Cerebellar Functioning grossly intact. No obvious sensory or motor deficits. Speech clear and appropriate. Patient ambulates with a steady gait. PSYCH: normal affect, appropriate eye contact, fluid speech, with appropriate response to questioning. No reported suicidality or homicidality. SKIN: Warm, dry, color appropriate, normal turgor. No rashes noted. Medical Decision Making Medical Decision Making MDM Narrative: 8:38 PM 05/04/2025 (Denis GARCIA): The patient is a 40-year-old male with known history of opiate dependency presenting to the ED for evaluation after received Narcan by EMS for suspected overdose. Patient admits to snorting heroin earlier today to get high , denies any suicidal ideation. The patient states he is not believe he needed the Narcan. Patient in the ED is well-appearing, denies any acute somatic complaint, exam is benign, patient is alert and oriented, ambulatory with steady gait. Patient is eating ice cream and sandwiches upon this provider's interview. Patient is requesting discharge, there is no evidence of acute emergent process requiring observation, the patient will be discharged per his request. Admission/Observation Consideration of admission/observation: Escalation of care including admission/observation considered External Record Review External record reviewed: Outpatient record Discharge Plan Discharge Clinical Impression: Drug overdose Patient Disposition: Home, Self-Care Instructions: Adult Overdose (ED) Additional Instructions: Thank you for choosing [facility]'s Emergency Department for your care today. At this time there is no evidence of an acute process requiring admission to the hospital or continued ED observation, and it is safe to discharge you home. You were brought to the emergency department today for evaluation of a suspected opiate overdose. Please do not use heroin or other narcotics as they are generally not good for your health and can put you at risk for respiratory arrest, anoxic brain injury, severely decreased quality of life, and potentially an otherwise avoidable . Please make use of all available personal and community-based resources to attempt to become sober from recreational drugs. Please stay well hydrated and get plenty of rest. Please follow up with your primary care physician for re-evaluation, additional management of your symptoms, and continued preventative care. If you do not have a primary care physician, please call the [facility] at [phone] to establish a new primary care physician. While waiting to establish your new primary care physician, you can call our [facility] at [phone] for non-emergency needs. Please return to the emergency department if you develop a severe or sudden change in your symptoms, a fever over 100.4 that does not improve with Tylenol or Ibuprofen, recurrent vomiting, or any other new or worsening symptoms or concerns. Prescriptions: No Action Anbesol (benzocaine) 10 % gel 1 appl mucous membrane QID PRN (Reason: mouth irritation) Qty: 9 0RF omeprazole magnesium [Prilosec OTC] 20 mg tablet,delayed release (DR/EC) 20 mg PO BID Qty: 30 0RF acetaminophen [Tylenol Extra Strength] 500 mg tablet 500 mg PO Q6H PRN (Reason: fever or pain) Qty: 14 0RF lidocaine [Lidoderm] 5 % adhesive patch,medicated 1 patch topical DAILY MDD remove after 12 hours PRN (Reason: pain) Qty: 30 0RF Rx Instructions: leave on most painful area for up to 12 hrs naproxen 500 mg tablet 500 mg PO BID PRN (Reason: pain) 10 Days Qty: 20 0RF ibuprofen 600 mg tablet 600 mg PO Q6H PRN (Reason: pain) Qty: 30 0RF ketorolac 10 mg tablet 10 mg PO TID PRN (Reason: pain) 5 Days Qty: 15 0RF Rx Instructions: Tolerated IM in the department prednisone 20 mg tablet 40 mg PO DAILY 5 Days Qty: 10 0RF doxycycline monohydrate 100 mg capsule 100 mg PO BID 10 Days Qty: 20 0RF lidocaine [Lidoderm] 5 % adhesive patch,medicated 1 patch topical DAILY Qty: 15 0RF Rx Instructions: leave on most painful area for up to 12 hrs ketorolac 10 mg tablet 10 mg PO TID 5 Days Qty: 15 0RF ibuprofen 600 mg tablet 600 mg PO TID PRN (Reason: pain) Qty: 14 0RF ibuprofen 600 mg tablet 600 mg PO Q6H PRN (Reason: pain) Qty: 20 0RF naproxen [Naprosyn] 500 mg tablet 500 mg PO BID Qty: 20 0RF ibuprofen 600 mg tablet 600 mg PO Q6H PRN (Reason: fever or pain) Qty: 30 0RF cyclobenzaprine 10 mg tablet 10 mg PO TID PRN (Reason: muscle spasm) Qty: 14 0RF ibuprofen 400 mg tablet 400 mg PO Q8H PRN (Reason: fever or pain) Qty: 14 0RF polyethylene glycol 3350 [Miralax] 17 gram/dose powder 17 g PO BID Qty: 238 0RF Rx Instructions: Use twice daily until you have daily, soft formed stools then reduce frequency to daily. Stop if you develop diarrhea. methadone 90 mg PO DAILY Referrals: [facility] [Primary Care Provider, Primary Care] Clinical Impression: Drug overdose Print Language: Unable To Collect
[2025-05-04 20:54] VITALS: BP 119/69; PULSE 75; RESP 16; TEMP 36.8; O2SAT 100
[2025-05-04 20:55] VITALS: BP 119/69; PULSE 75; RESP 16; TEMP 36.8; O2SAT 100
== END 2025-05-04 20:55 | disposition home or self-care (01) ==
PROVIDERS: Emergency Provider Internal Medicine; PCP Dentist General Practice
DX: T40.1X1A Poisoning by heroin, accidental (unintentional), initial encounter (principal); Y92.9 Unspecified place or not applicable; Z71.51 Drug abuse counseling and surveillance of drug abuser; Z79.899 Other long term (current) drug therapy; F17.210 Nicotine dependence, cigarettes, uncomplicated
CPT/HCPCS: 93005; 99283; 99285

== ENCOUNTER → 2025-05-04 19:41 | Outpatient (BNV) | payer MEDICAID, SELFPAY | PROVIDERS: Emergency Provider Internal Medicine; PCP Dentist General Practice; Visit Provider Internal Medicine Cardiovascular Disease | DX: T50.901A Poisoning by unspecified drugs, medicaments and biological substances, accidental (unintentional), initial encounter (principal) | CPT/HCPCS: 93010 ==

== ENCOUNTER 2025-05-18 00:21 | Emergency (ER) | payer MEDICAID, SELFPAY ==
[2025-05-18] VITALS (7 sets, daily range): BP systolic 104–128; BP diastolic 56–80; PULSE 62–70; RESP 14–20; TEMP 36.5–36.9; O2SAT 95–100; BMI 25.8
--- NOTE | 2025-05-18 00:33 | ED_ITS ---
HPI - Alcohol General Chief Complaint: ETOH/Substance Use Stated Complaint: ETOH Time Seen by Provider: 05/18/25 00:32 Source: patient and EMS Mode of arrival: EMS Limitations: no limitations History of Present Illness ED Provider: Dr. Taryn Cesar HPI narrative: Patient comes to the emergency room via ambulance. According to EMS, patient went to a [employer], sat on a manley and when to sleep. Patient did not consume any food therefore EMS was called to bring the patient to the hospital. Patient is very somnolent, arousable to name, states that he has been drinking alcohol and using crack cocaine. Patient states that he did not have any kind of injuries. Denies chest pain or shortness of breath, denies SI or HI. Per EMS, he did not get Narcan Related Data Home Medications ?Medication ?Instructions ?Recorded ?Confirmed methadone 90 mg PO DAILY 02/08/24 0407/25 Previous Rx's ?Medication ?Instructions ?Recorded ketorolac 10 mg tablet 10 mg PO TID 5 days #15 tabs 09/21/21 ibuprofen 600 mg tablet 600 mg PO TID PRN pain #14 t abs 12/03/21 ibuprofen 600 mg tablet 600 mg PO Q6H PRN pain #20 t abs 12/27/21 benzocaine 10 % mucosal gel 1 appl mucous membrane QID PRN 02/08/22 (Anbesol (benzocaine)) mouth irritation #9 grams omeprazole magnesium 20 mg 20 mg PO BID #30 tabs 02/15 tablet,delayed release (Prilosec OTC) naproxen 500 mg tablet (Naprosyn) 500 mg PO BID #20 ta bs 03/10/22 acetaminophen 500 mg tablet 500 mg PO Q6H PRN fever or pain 05/17/22 (Tylenol Extra Strength) #14 tabs lidocaine 5 % topical patch 1 patch topical DAILY PRN pain #30 05/17/22 (Lidoderm) ea naproxen 500 mg tablet 500 mg PO BID PRN pain 10 da ys #20 05/17/22 tabs ibuprofen 600 mg tablet 600 mg PO Q6H PRN pain #30 t abs 06/17/22 ibuprofen 600 mg tablet 600 mg PO Q6H PRN fever or p ain 10/02/22 #30 tabs ketorolac 10 mg tablet 10 mg PO TID PRN pain 5 days #15 10/29/22 tabs prednisone 20 mg tablet 40 mg (2 x 20 mg) PO DAILY 5 days 10/29/22 #10 tabs doxycycline monohydrate 100 mg 100 mg PO BID 10 days # 20 caps 11/29/22 capsule cyclobenzaprine 10 mg tablet 10 mg PO TID PRN muscle s pasm #14 12/20/22 tabs lidocaine 5 % topical patch 1 patch topical DAILY #15 ea 12/27/22 (Lidoderm) ibuprofen 400 mg tablet 400 mg PO Q8H PRN fever or p ain 01/23/23 #14 tabs polyethylene glycol 3350 17 17 g PO BID #238 grams gram/dose oral powder (Miralax) Allergies Allergy/AdvReac Type Severity Reaction Status Date / Time Penicillins (PCN) Allergy Mild RASH Verified 05/18/25 00:30 silver (From TEGADERM AG AdvReac Intermediate rash Verified 05/18/25 00:30 MESH) Review of Systems Review of Systems: Constitutional : No Weight loss, No Fever, No Chills, No Night Sweats, No Fatigue, No Malaise ENT/Mouth : No Hearing loss, No Ear Pain, No Nasal Congestion, No Sinus Pain, No Hoarseness, No sore throat, No Rhinorrhea, No Swallowing Difficulty Eyes: No Eye Pain, No Swelling, No Redness, No Foreign Body, No Discharge, No Vision Changes Cardiovascular : No Chest Pain, No SOB, No Dyspnea on Exertion, No Orthopnea, No Edema, No Palpitations Respiratory : No Cough, No Sputum, No Wheezing, No Smoke Exposure, No Dyspnea Gastrointestinal : No Nausea, No Vomiting, No Diarrhea, No Constipation, No abdominal Pain, No Hematochezia, No Melena Genitourinary : no irregular bleeding, No Dysuria, No Urinary Frequency, No Hematuria, No Urinary Incontinence, No Urgency, No Flank Pain, No Urinary Flow Changes, No Hesitancy Musculoskeletal : No joint pain, No Myalgias, No Joint Swelling Skin : No Skin Lesions, No rash Neuro : No Weakness, No Numbness, No Paresthesias, No Loss of Consciousness, No Dizziness, No Headache Psych : No Anxiety/Panic, No Depression, No SI/HI/AH/VH, admits to using alcohol and crack cocaine Heme/Lymph: No Bruising, No Bleeding,No Lymphadenopathy Endocrine : No Polyuria, No Polydipsia, No Temperature Intolerance [facility] Past Medical History Medical History Anxiety Depression Bipolar 1 disorder Heart murmur Contusion Foot drop, right foot Schizophrenia Surgical History No pertinent past surgical history Social History Social History Alcohol intake: current Alcohol intake frequency: does not drink Alcohol type: beer Patient Tobacco Use Status: Current everyday Tobacco user Use of substances other than those prescribed or required for medical reasons: Yes Substance Use Type: Crack/Cocaine Advance Directives: No Advance Directives Information Provided: Yes Physical Exam ED Vital Signs: Vital Signs - 24 hr 05/18/25 00:53 05/18/25 02:00 05/18/25 04:00 Temperature Pulse Rate 62 66 62 Respiratory Rate 17 20 20 Blood Pressure 106/56 L 104/57 L 105/60 Pulse Oximetry 96 95 96 Oxygen Delivery Method Room Air Room Air Room Air 05/18/25 04:48 05/18/25 06:00 Temperature 97.7 F 98.5 F Pulse Rate 68 70 Respiratory Rate 20 14 Blood Pressure 113/68 128/77 Pulse Oximetry 97 100 Oxygen Delivery Method Room Air Room Air BMI result Body Mass Index 25.8 Const Other: Appearance: Somnolent but easily arousable, answers questions appropriately, falls asleep Eyes: Pupils equal, round and reactive to light. ENT: Pharynx normal. Neck: Normal inspection. Neck supple. No lymph nodes noted. No crepitus CVS: Normal heart rate and rhythm. Pulses normal. Normal S1 and S2 Respiratory: No respiratory distress. Breath sounds normal. No Wheezing. No rales Abdomen: Soft and nontender. No rigidity. No distention. Skin: Skin warm and dry. Normal skin color. Normal skin turgor. No obvious signs of injury Extremities: No lower extremity edema. No Lacerations. No Rash Neuro: Oriented X 3. No motor deficit. No sensory deficit. Moving all extremities. No slurred speech. Patient chronic right-sided foot drop, CN 2 through 12 grossly intact Psych: calm, cooperative, under the influence of drugs +/- alcohol Course Course Course Narrative: Patient reports that he went to a pizza shop to sleep, admits using crack cocaine and alcohol, denies injuries, denies SI or HI Plan: Metabolize to freedom. Patient's vitals are stable Physician observation started at 00:50 Medical Decision Making Medical Decision Making [facility] Narrative: At this time 06:55, patient is awake, alert and oriented x3, ambulatory. Patient ate 5 ice creams couple of sandwiches, patient feels very well. Patient's vitals stable Patient denies SI or HI Patient declined detox/care team Patient feels ready to go home Differential Diagnosis Differential Diagnoses: The differential diagnosis associated with the presentation includes (Alcohol abuse, polysubstance abuse, accidental overdose) Admission/Observation Consideration of admission/observation: Escalation of care including admission/observation considered (Patient is under physician observation waiting to become clinically sober) Critical Care Time Critical Care Time Critical Care Time: Yes Total Critical Care Time: 35 Attestation: I have personally provided critical care time. Time includes review of lab data, radiology results, discussion with consultants, and monitoring for potential decompensation. Intervention performed as documented. Discharge Plan Discharge Clinical Impression: Alcoholic intoxication Patient Disposition: Home, Self-Care Instructions: Abuse of Alcohol (ED) Additional Instructions: Please follow-up with your primary care physician tomorrow. If you have any worsening or new symptoms, please return to the emergency room or call 911 Prescriptions: No Action Anbesol (benzocaine) 10 % gel 1 appl mucous membrane QID PRN (Reason: mouth irritation) Qty: 9 0RF omeprazole magnesium [Prilosec OTC] 20 mg tablet,delayed release (DR/EC) 20 mg PO BID Qty: 30 0RF acetaminophen [Tylenol Extra Strength] 500 mg tablet 500 mg PO Q6H PRN (Reason: fever or pain) Qty: 14 0RF lidocaine [Lidoderm] 5 % adhesive patch,medicated 1 patch topical DAILY MDD remove after 12 hours PRN (Reason: pain) Qty: 30 0RF Rx Instructions: leave on most painful area for up to 12 hrs naproxen 500 mg tablet 500 mg PO BID PRN (Reason: pain) 10 Days Qty: 20 0RF ibuprofen 600 mg tablet 600 mg PO Q6H PRN (Reason: pain) Qty: 30 0RF ketorolac 10 mg tablet 10 mg PO TID PRN (Reason: pain) 5 Days Qty: 15 0RF Rx Instructions: Tolerated IM in the department prednisone 20 mg tablet 40 mg PO DAILY 5 Days Qty: 10 0RF doxycycline monohydrate 100 mg capsule 100 mg PO BID 10 Days Qty: 20 0RF lidocaine [Lidoderm] 5 % adhesive patch,medicated 1 patch topical DAILY Qty: 15 0RF Rx Instructions: leave on most painful area for up to 12 hrs ketorolac 10 mg tablet 10 mg PO TID 5 Days Qty: 15 0RF ibuprofen 600 mg tablet 600 mg PO TID PRN (Reason: pain) Qty: 14 0RF ibuprofen 600 mg tablet 600 mg PO Q6H PRN (Reason: pain) Qty: 20 0RF naproxen [Naprosyn] 500 mg tablet 500 mg PO BID Qty: 20 0RF ibuprofen 600 mg tablet 600 mg PO Q6H PRN (Reason: fever or pain) Qty: 30 0RF cyclobenzaprine 10 mg tablet 10 mg PO TID PRN (Reason: muscle spasm) Qty: 14 0RF ibuprofen 400 mg tablet 400 mg PO Q8H PRN (Reason: fever or pain) Qty: 14 0RF polyethylene glycol 3350 [Miralax] 17 gram/dose powder 17 g PO BID Qty: 238 0RF Rx Instructions: Use twice daily until you have daily, soft formed stools then reduce frequency to daily. Stop if you develop diarrhea. methadone 90 mg PO DAILY Print Language: Amharic
--- OUTSIDE RECORDS SUMMARY | 2025-05-18 05:53 | XMS_ITS | Patient Health Record ---
Author Organization [facility] Address [address] [place], [place] [id number] Care Team Providers Care Battery Checker Name Role Phone [facility] Provi julian [phone] Debra Mckenzie Unavailable [phone] Reason For Referral No Information Encounters Encounter Location Date Provider Diagnosis [facility] [address], [place] [id number] 07/26/2024 Debra Mckenzie Plan Of Treatment No Information Insurance Providers Payer Name Payer Address Payer Phone Subscriber Number Group Number Insured Name Patient Relationship to Insured Coverage Start Date Coverage End Date [place] Standard [address] [place] [id number] LeungAlex Busch Self - patient is the insured 4 [facility] [address] [place] [address] LeungAlex Busch Self - patient is the insured 0 0
== END 2025-05-18 07:44 | disposition home or self-care (01) ==
PROVIDERS: Emergency Provider Emergency Medicine
DX: F10.120 Alcohol abuse with intoxication, uncomplicated (principal); F19.10 Other psychoactive substance abuse, uncomplicated; Y90.9 Presence of alcohol in blood, level not specified; F20.9 Schizophrenia, unspecified; F11.20 Opioid dependence, uncomplicated; Z79.899 Other long term (current) drug therapy
CPT/HCPCS: 99284; 99291

== ENCOUNTER 2025-06-01 11:57 | Emergency (ER) | payer MEDICAID, SELFPAY ==
--- NOTE | 2025-06-01 12:09 | ED_ITS ---
HPI - General Adult General Chief complaint: Overdose Stated complaint: OVERDOSE Time Seen by Provider: 06/01/25 12:08 Source: patient, EMS, RN notes reviewed and old records reviewed Mode of arrival: EMS History of Present Illness ED Provider: Abdirashid CAMARA narrative: Patient is a 40-year-old male with history of schizophrenia, hypertension, substance use disorder presenting to the emergency department via EMS after being found on the street appearing unresponsive. He woke to verbal interaction, was not given any Narcan prior to arrival. He admits to snorting heroin as well as using crack cocaine prior to arrival. He states he was not attempting to intentionally overdose, denies suicidal or homicidal ideation. He states that he is not interested in assistance with recovery. He denies any current physical complaints. MD complaint: found unresponsive Related Data Home Medications ?Medication ?Instructions ?Recorded ?Confirmed methadone 90 mg PO DAILY 02/08/24 0407/25 Previous Rx's ?Medication ?Instructions ?Recorded ketorolac 10 mg tablet 10 mg PO TID 5 days #15 tabs 09/21/21 ibuprofen 600 mg tablet 600 mg PO TID PRN pain #14 t abs 12/03/21 ibuprofen 600 mg tablet 600 mg PO Q6H PRN pain #20 t abs 12/27/21 benzocaine 10 % mucosal gel 1 appl mucous membrane QID PRN 02/08/22 (Anbesol (benzocaine)) mouth irritation #9 grams omeprazole magnesium 20 mg 20 mg PO BID #30 tabs 02/15 tablet,delayed release (Prilosec OTC) naproxen 500 mg tablet (Naprosyn) 500 mg PO BID #20 ta bs 03/10/22 acetaminophen 500 mg tablet 500 mg PO Q6H PRN fever or pain 05/17/22 (Tylenol Extra Strength) #14 tabs lidocaine 5 % topical patch 1 patch topical DAILY PRN pain #30 05/17/22 (Lidoderm) ea naproxen 500 mg tablet 500 mg PO BID PRN pain 10 da ys #20 05/17/22 tabs ibuprofen 600 mg tablet 600 mg PO Q6H PRN pain #30 t abs 06/17/22 ibuprofen 600 mg tablet 600 mg PO Q6H PRN fever or p ain 10/02/22 #30 tabs ketorolac 10 mg tablet 10 mg PO TID PRN pain 5 days #15 10/29/22 tabs prednisone 20 mg tablet 40 mg (2 x 20 mg) PO DAILY 5 days 10/29/22 #10 tabs doxycycline monohydrate 100 mg 100 mg PO BID 10 days # 20 caps 11/29/22 capsule cyclobenzaprine 10 mg tablet 10 mg PO TID PRN muscle s pasm #14 12/20/22 tabs lidocaine 5 % topical patch 1 patch topical DAILY #15 ea 12/27/22 (Lidoderm) ibuprofen 400 mg tablet 400 mg PO Q8H PRN fever or p ain 01/23/23 #14 tabs polyethylene glycol 3350 17 17 g PO BID #238 grams gram/dose oral powder (Miralax) Allergies Allergy/AdvReac Type Severity Reaction Status Date / Time Penicillins (PCN) Allergy Mild RASH Verified 06/01/25 12:36 silver (From TEGADER[employer] AG AdvReac Intermediate rash Verified 06/01/25 12:36 MESH) Review of Systems 2 Review of Systems: As per HPI Yes all other systems are reviewed and are negative Constitutional: Constitutional: Reports as per HPI PMFSH Past Medical History Medical History Anxiety Depression Bipolar 1 disorder Heart murmur Contusion Foot drop, right foot Schizophrenia Surgical History No pertinent past surgical history Social History Social History Alcohol intake: current Alcohol intake frequency: does not drink Alcohol type: beer Patient Tobacco Use Status: Current everyday Tobacco user Substance Use Type: Crack/Cocaine Advance Directives: No Advance Directives Information Provided: Yes Physical Exam ED Vital Signs: Vital Signs - 24 hr 06/01/25 12:33 Temperature 98.4 F Pulse Rate 87 Respiratory Rate 16 Blood Pressure 134/68 Pulse Oximetry 97 Oxygen Delivery Method Room Air BMI result Body Mass Index 21.0 Vital signs have been reviewed and appear to be correct. Blood pressure normal. Heart rate normal. Respiratory rate normal. Temperature normal. Oxygen saturation normal. Const General: cooperative, no acute distress and other (Appears drowsy but wakes easily to voice) Orientation/consciousness: oriented to person, oriented to place, oriented to time and patient oriented x3 Limitations: no limitations [facility] Head: Yes normocephalic and Yes atraumatic Ears: external ears normal General nose exam: Normal external nose present Face and sinus: Yes face symmetric Mouth: oropharynx normal and moist mucous membranes Throat: Yes uvula midline Eyes Pupils: Equal, round and reactive pupils present Neck Neck: Yes normal visual inspection and Yes supple Resp Effort & Inspection: normal respiratory effort and able to speak in complete sentences Auscultation: clear to auscultation bilaterally Cardio Rate: regular rate Rhythm: regular rhythm Heart sounds: S1 normal heart sound present and S2 normal heart sound present GI Palpation (GI): Soft to palpation and nontender Auscultation: normoactive bowel sounds General: Yes no CVA tenderness Back/Spine/Pelvis Back: no CVA tenderness Skin General skin exam: elasticity normal and turgor normal Neuro General: oriented to person, oriented to place, oriented to time, patient oriented x3, moves all extremities, no focal motor deficits and CN's II-XI intact bilaterally Cranial nerves: Yes Equal, round and reactive pupils present Cognition (Neuro): normal cognition Extrem General: Yes full ROM, Yes no pedal edema and Yes no calf tenderness Psych Mental Status: mental status grossly normal Affect: normal affect Thought process: Normal thought process present Medical Decision Making Medical Decision Making [facility] Narrative: Patient is a 40-year-old male with history of schizophrenia, hypertension, substance use disorder presenting to the emergency department via EMS after being found on the street appearing unresponsive. On exam patient is awake, A+Ox3, VS WNL, afebrile, normal neurological exam without focal deficits, physical exam findings as above. Given reported symptoms and physical exam findings, initial differential includes but is not limited to drug overdose, drug or alcohol intoxication or withdrawal. Labs unremarkable. UDS positive for opiates, fentanyl, cocaine, and marijuana, ethanol negative. Patient has become more awake and alert while in the emergency department, has been ambulating with steady gait in the department and has been able to eat and drink independently. He is requesting discharge at this time, feel he is stable for discharge. Patient provided with take home Narcan. Return precautions discussed. Patient verbalized understanding of and agreement with plan. Differential Diagnosis Differential Diagnoses: The differential diagnosis associated with the presentation includes As per [facility] Admission/Observation Consideration of admission/observation: Escalation of care including admission/observation considered Patient would have been admitted to the hospital had their clinical presentation warranted hospital admission. Lab Data [facility] Lab Attestation statement: I reviewed the patient's lab results. as per [facility] 06/01/25 13:10 06/01/25 13:10 Labs: Lab Results 06/01/25 06/01/25 Range/Units 13:10 13:20 WBC 7.0 (4.8-10.8) X10*3/uL RBC 3.87 L (4.60-5.80) X10*6/uL Hgb 12.7 L (14.0-18.0) g/dl Hct 36.2 L (42.0-52.0) % MCV 93.5 (80.0-98.0) fL MCH 32.8 (27.0-33.0) pg MCHC 35.1 (31.0-36.0) g/dl RDW 12.8 (11.0-16.0) % Plt Count 216 (160-400) X10*3/uL MPV 9.3 L (9.4-12.4) fL Immature Gran % (Auto) 0.3 (0.0-0.4) % Neut % (Auto) 77.5 H (45-73) % Lymph % (Auto) 17.2 L (20-40) % Grady % (Auto) 4.3 (2-11) % Eos % (Auto) 0.4 (0-4) % Baso % (Auto) 0.3 (0-2) % Lymph # (Auto) 1.2 (1.2-4.9) X10*3/uL Grady # (Auto) 0.3 (0.1-1.2) X10*3/uL Eos # (Auto) 0.0 (0.0-0.4) X10*3/uL Baso # (Auto) 0.0 (0.0-0.2) X10*3/uL Abs Immat Gran (auto) 0.02 (0.00-0.03) X10*3/uL Absolute Neuts (auto) 5.4 (2.0-8.3) x10*3/uL Absolute Nucleated RBC 0.000 (0.0-0.012) X10*3/uL Nucleated RBC % (auto) 0.0 (0.0-0.2) /100WBC Sodium 142 (135-145) mmol/L Potassium 3.9 (3.3-5.1) mmol/L Chloride 107 (96-108) mmol/L Carbon Dioxide 30 H (22-29) mmol/L Anion Gap 9 L (12-20) BUN 11 (9-16) mg/dL Creatinine 0.96 (0.5-1.4) mg/dL Estim Creat Clear Calc 85.3 Estimated GFR > 60 Random Glucose 120 H (60-115) mg/dL Calcium 8.2 L D (8.4-10.2) mg/dL Total Bilirubin 0.3 (0.0-1.0) mg/dL AST 54 H (5-37) U/L ALT 82 H (0-40) U/L Alkaline Phosphatase 69 (39-117) U/L Total Protein 6.3 L (6.5-8.0) g/dL Albumin 3.8 (3.5-5.0) g/dL Urine Color Yellow Urine Appearance Clear Urine pH 5.5 (5.0-9.0) Ur Specific [place] 1.015 (1.005-1.025) Urine Protein 300 (3+) H (Neg-Trace) mg/dL Urine Glucose (UA) Negative (Negative) mg/dL Urine Ketones Negative (Negative) mg/dL Urine Blood Trace H (Negative) Urine Nitrite Negative (Negative) Ur Leukocyte Esterase Negative (Negative) Urine RBC 0-2 (0-2) /HPF Urine WBC 21-50 H (0-5) /HPF Ur Squamous Epith Cells 11-20 (0-2) /HPF Urine Bacteria None Seen (None Seen) Hyaline Casts 6-10 (0-2) /LPF Urine Opiates Screen POSITIVE H (Not Detect) Ur Buprenorphine Scrn Not Detected (Not Detect) ng/mL Ur Oxycodone Screen Not Detected (Not Detect) ng/mL Urine Methadone Screen Not Detected (Not Detect) ng/mL Urine Fentanyl Screen POSITIVE H (Not Detect) Ur Barbiturates Screen Not Detected (Not Detect) Ur Phencyclidine Scrn Not Detected (Not Detect) Ur Amphetamines Screen Not Detected (Not Detect) U Benzodiazepines Scrn Not Detected (Not Detect) Urine Cocaine Screen POSITIVE H (Not Detect) U Marijuana (THC) Screen POSITIVE H (Not Detect) Ethyl Alcohol < 10 mg/dL External Record Review External record reviewed: Inpatient record, Office record and Outpatient record Prescription Management I considered prescription management with: Other (Narcan) Discharge Plan Discharge Clinical Impression: Drug overdose Patient Disposition: Home, Self-Care Instructions: Adult Overdose (ED) Additional Instructions: Overdose You were seen in our Emergency Department for an overdose today. You received narcan in order to reverse the effects of overdose. Narcan only lasts about 45 min to 1 hour in the system. You may have been given narcan to take home with you today, please keep it near you if you are going to use again, so others can use it if needed.? The number one risk for fatal overdose is using alone? [employer] is a / hotline where you can be on the phone with someone while you use, and they can call for help if they suspect an overdose: [phone] Things to look out for when you leave include severe vomiting or diarrhea, headaches, muscle cramps, fever, coughing, chest pain, or if you feel so short of breath you cannot walk to the bathroom. Please seek care and return any time for worsening symptoms.? You may have been provided with safer injection?items, please take time to take care of YOU and your health. Use new supplies whenever possible to lessen the chances of infections and other illnesses.? If you need more supplies, please go [facility],? [address] [place] [address] OR you can call or text to coordinate delivery of safer supplies. If you decide you want to stop or cut down on how much you?re using, please call the numbers on the list provided to you or you can come to our outpatient Addiction Treatment office [facility] (M-F 9am-5p) [address], [address] [place] [address]. [phone] Prescriptions: No Action Anbesol (benzocaine) 10 % gel 1 appl mucous membrane QID PRN (Reason: mouth irritation) Qty: 9 0RF omeprazole magnesium [Prilosec OTC] 20 mg tablet,delayed release (DR/EC) 20 mg PO BID Qty: 30 0RF acetaminophen [Tylenol Extra Strength] 500 mg tablet 500 mg PO Q6H PRN (Reason: fever or pain) Qty: 14 0RF lidocaine [Lidoderm] 5 % adhesive patch,medicated 1 patch topical DAILY MDD remove after 12 hours PRN (Reason: pain) Qty: 30 0RF Rx Instructions: leave on most painful area for up to 12 hrs naproxen 500 mg tablet 500 mg PO BID PRN (Reason: pain) 10 Days Qty: 20 0RF ibuprofen 600 mg tablet 600 mg PO Q6H PRN (Reason: pain) Qty: 30 0RF ketorolac 10 mg tablet 10 mg PO TID PRN (Reason: pain) 5 Days Qty: 15 0RF Rx Instructions: Tolerated IM in the department prednisone 20 mg tablet 40 mg PO DAILY 5 Days Qty: 10 0RF doxycycline monohydrate 100 mg capsule 100 mg PO BID 10 Days Qty: 20 0RF lidocaine [Lidoderm] 5 % adhesive patch,medicated 1 patch topical DAILY Qty: 15 0RF Rx Instructions: leave on most painful area for up to 12 hrs ketorolac 10 mg tablet 10 mg PO TID 5 Days Qty: 15 0RF ibuprofen 600 mg tablet 600 mg PO TID PRN (Reason: pain) Qty: 14 0RF ibuprofen 600 mg tablet 600 mg PO Q6H PRN (Reason: pain) Qty: 20 0RF naproxen [Naprosyn] 500 mg tablet 500 mg PO BID Qty: 20 0RF ibuprofen 600 mg tablet 600 mg PO Q6H PRN (Reason: fever or pain) Qty: 30 0RF cyclobenzaprine 10 mg tablet 10 mg PO TID PRN (Reason: muscle spasm) Qty: 14 0RF ibuprofen 400 mg tablet 400 mg PO Q8H PRN (Reason: fever or pain) Qty: 14 0RF polyethylene glycol 3350 [Miralax] 17 gram/dose powder 17 g PO BID Qty: 238 0RF Rx Instructions: Use twice daily until you have daily, soft formed stools then reduce frequency to daily. Stop if you develop diarrhea. methadone 90 mg PO DAILY Print Language: Arabic
[2025-06-01 12:33] VITALS: BP 134/68; BP 144/88; PULSE 87; PULSE 88; RESP 16; TEMP 36.9; O2SAT 96; O2SAT 97; BMI 21.0
[2025-06-01 13:17] LABS: MANUAL DIFF FLAG NO
[2025-06-01 13:20] LABS: Hematocrit 36.2 % (42.0-52.0); Hemoglobin 12.7 g/dl (14.0-18.0); Imm Gran Abs Auto 0.02 X10*3/uL (0.00-0.03); Imm Gran Pct Auto 0.3 % (0.0-0.4); Lymphocytes Absolute Auto 1.2 X10*3/uL (1.2-4.9); Mean Corpuscular HGB Conc 35.1 g/dl (31.0-36.0); Mean Corpuscular Hemoglobin 32.8 pg (27.0-33.0); Mean Corpuscular Volume 93.5 fL (80.0-98.0); NRBC Abs Auto 0.000 X10*3/uL (0.0-0.012); NRBC Pct Auto 0.0 /100WBC (0.0-0.2); Platelet Count 216 X10*3/uL (160-400); Red Blood Count 3.87 X10*6/uL (4.60-5.80); White Blood Count 7.0 X10*3/uL (4.8-10.8)
[2025-06-01 13:25] LABS: Appearance Urine Clear; Glucose Urine UA Negative (Negative); PH 5.5 (5.0-9.0); Specific Gravity - Urine 1.015 (1.005-1.025); UMIC TRIGGER UACC YES
--- OUTSIDE RECORDS SUMMARY | 2025-06-01 13:27 | XMS_ITS | Patient Health Record ---
Author Organization [facility] Address [address] [place], [place] [id number] Care Team Providers Care Back Seam Stitcher Name Role Phone [facility] Provi julian [phone] Debra Mckenzie Unavailable Reason For Referral No Information Encounters Encounter Location Date Provider Diagnosis [facility] [address] [place], [place] [phone] 07/26/2024 Debra Mckenzie Plan Of Treatment No Information Insurance Providers Payer Name Payer Address Payer Phone Subscriber Number Group Number Insured Name Patient Relationship to Insured Coverage Start Date Coverage End Date [place] [address] [place] [address] [phone] [id number] LeungAlex Busch Self - patient is the insured 4 [facility] [address] [place] [address] [phone] LeungAlex Busch Self - patient is the insured 0 0
[2025-06-01 13:36] LABS: Cannabinoid Screen Urine POSITIVE (Not Detect)
[2025-06-01 13:37] LABS: Alanine Aminotransferase 82 U/L (0-40); Albumin Level 3.8 g/dL (3.5-5.0); Alkaline Phosphatase 69 U/L (39-117); Anion Gap 9 (12-20); Aspartate Amino Transferase 54 U/L (5-37); Blood Urea Nitrogen 11 mg/dL (9-16); Calcium 8.2 mg/dL (8.4-10.2); Carbon Dioxide 30 mmol/L (22-29); Chloride 107 mmol/L (96-108); Creatinine Clr Calc Pharmacy 85.3; Estimated Glomerular Filt Rate > 60; Potassium 3.9 mmol/L (3.3-5.1); Sodium 142 mmol/L (135-145); Total Protein 6.3 g/dL (6.5-8.0)
[2025-06-01 13:38] LABS: UACC Culture Trigger YES
[2025-06-01 16:25] VITALS: BP 134/68; PULSE 87; RESP 16; TEMP 36.9; O2SAT 97
== END 2025-06-01 16:27 | disposition home or self-care (01) ==
PROVIDERS: Registered Nurse Emergency; Emergency Provider Emergency Medicine Emergency Medical Services; PCP Dentist General Practice
DX: T40.1X1A Poisoning by heroin, accidental (unintentional), initial encounter (principal); T40.5X1A Poisoning by cocaine, accidental (unintentional), initial encounter; Y92.410 Unspecified street and highway as the place of occurrence of the external cause; F20.9 Schizophrenia, unspecified; I10 Essential (primary) hypertension; F14.90 Cocaine use, unspecified, uncomplicated; F11.90 Opioid use, unspecified, uncomplicated
CPT/HCPCS: 36415; 80053; 80307; 81001; 85025; 87086; 99282; 99284

== ENCOUNTER 2025-10-09 13:23 | Emergency (ER) | payer MEDICAID, SELFPAY ==
[2025-10-09 13:41] VITALS: BP 125/64; PULSE 82; RESP 18; TEMP 36.3; O2SAT 98
--- NOTE | 2025-10-09 13:46 | ED.GENADULT ---
HPI - General Adult General Chief complaint: ETOH/Substance Use Stated complaint: substance use, crisis Time Seen by Provider: 10/09/25 14:00 Source: patient Mode of arrival: ambulatory Limitations: no limitations History of Present Illness ED Provider: Renny Wise HPI narrative: 40 yold male presents to the ED wanting detox for heroine, cocaine, and ethanol. patient states no SI or hI. patient states no physical complaints. Related Data Home Medications ?Medication ?Instructions ?Recorded ?Confirmed methadone 90 mg PO DAILY 02/08/24 02/08/24 Previous Rx's ?Medication ?Instructions ?Recorded ketorolac 10 mg tablet 10 mg PO TID 5 days #15 tabs 09/21/21 ibuprofen 600 mg tablet 600 mg PO TID PRN pain #14 tabs 12/03/21 ibuprofen 600 mg tablet 600 mg PO Q6H PRN pain #20 tabs 12/27/21 benzocaine 10 % mucosal gel 1 appl mucous membrane QID PRN 02/08/22 (Anbesol (benzocaine)) mouth irritation #9 grams omeprazole magnesium 20 mg 20 mg PO BID #30 tabs 02/15/22 tablet,delayed release (Prilosec OTC) naproxen 500 mg tablet (Naprosyn) 500 mg PO BID #20 tabs 03/10/22 acetaminophen 500 mg tablet 500 mg PO Q6H PRN fever or pain 05/17/22 (Tylenol Extra Strength) #14 tabs lidocaine 5 % topical patch 1 patch topical DAILY PRN pain #30 05/17/22 (Lidoderm) ea naproxen 500 mg tablet 500 mg PO BID PRN pain 10 days #20 05/17/22 tabs ibuprofen 600 mg tablet 600 mg PO Q6H PRN pain #30 tabs 06/17/22 ibuprofen 600 mg tablet 600 mg PO Q6H PRN fever or pain 10/02/22 #30 tabs ketorolac 10 mg tablet 10 mg PO TID PRN pain 5 days #15 10/29/22 tabs prednisone 20 mg tablet 40 mg (2 x 20 mg) PO DAILY 5 days 10/29/22 #10 tabs doxycycline monohydrate 100 mg 100 mg PO BID 10 days #20 caps 11/29/22 capsule cyclobenzaprine 10 mg tablet 10 mg PO TID PRN muscle spasm #14 02/19/23 tabs lidocaine 5 % topical patch 1 patch topical DAILY #15 ea 12/27/22 (Lidoderm) ibuprofen 400 mg tablet 400 mg PO Q8H PRN fever or pain 01/23/23 #14 tabs polyethylene glycol 3350 17 17 g PO BID #238 grams 02/17/23 gram/dose oral powder (Miralax) Allergies Allergy/AdvReac Type Severity Reaction Status Date / Time Penicillins (PCN) Allergy Mild RASH Verified 10/09/25 13:44 silver (From TEGADER[employer] AG AdvReac Intermediate rash Verified 10/09/25 13:44 MESH) Review of Systems Review of Systems: wants detox Yes all other systems are reviewed and are negative [facility] Past Medical History Medical History Anxiety Depression Bipolar 1 disorder Heart murmur Contusion Foot drop, right foot Schizophrenia Surgical History No pertinent past surgical history Social History Social History Alcohol intake: current Alcohol intake frequency: does not drink Alcohol type: beer Patient Tobacco Use Status: Current everyday Tobacco user Substance Use Type: Crack/Cocaine Advance Directives: No Advance Directives Information Provided: No Physical Exam ED Vital Signs: Vital Signs - 24 hr 10/09/25 13:41 Temperature 97.3 F Pulse Rate 82 Respiratory Rate 18 Blood Pressure 125/64 Pulse Oximetry 98 Oxygen Delivery Method Room Air BMI result Body Mass Index 20.0 Const Orientation/consciousness: patient oriented x3 HENMT Head: Yes normal to inspection, Yes No palpable skull fracture present, Yes normocephalic and Yes atraumatic Eyes General: appearance normal, both eyes and all related structures Neck Neck: Yes normal visual inspection, Yes full ROM, Yes no lymphadenopathy, Yes no meningeal signs, Yes trachea midline, Yes supple, No anterior neck swelling and No tender Chest Chest palpation & inspection: normal inspection of the chest and normal palpation of entire chest wall Resp Effort & Inspection: normal respiratory effort and able to speak in complete sentences Auscultation: clear to auscultation bilaterally Cardio Jugular venous distension: no JVD Heart sounds: S1 normal heart sound present and S2 normal heart sound present GI Inspection: Yes normal to inspection Palpation (GI): Soft to palpation, not firm, nontender, no guarding and not rigid General: Yes no CVA tenderness Back/Spine/Pelvis Back: no CVA tenderness and No back tenderness Skin General skin exam: no rashes or lesions noted, elasticity normal and turgor normal Neuro General: patient oriented x3, gait normal, tone normal, moves all extremities, Normal light touch and pain sensation, no meningeal signs, no focal motor deficits, CN's II-XI intact bilaterally and normal sensation to monofilament Extrem General: Yes normal to inspection, Yes full ROM and Yes capillary refill normal Psych Appearance: grossly normal, well kempt and not disheveled Course Course Course Narrative: RME: 40 year male presents to ED for substance abuse will like to be placed in detox for heroin cocaine and alcohol. Patient's vital signs stable Medical Decision Making Medical Decision Making MDM Narrative: 40 yold male presents to the ED requesting detox, but than changes his mind. patient would like to be discharged. patient states no complaints and would like no intervention. patient is not SI or HI Differential Diagnosis Differential Diagnoses: The differential diagnosis associated with the presentation includes Admission/Observation Consideration of admission/observation: Escalation of care including admission/observation considered Independent Historian Clinical information obtained from an independent historian. History obtained from or confirmed by: Other (patient) Discharge Plan Discharge Clinical Impression: Polysubstance abuse Patient Disposition: Home, Self-Care Instructions: Polysubstance Use Disorder (ED) Additional Instructions: Opiate use disorder You were seen in our Emergency Department today for treatment of opiate use disorder. You may have been dosed with medication for opiate use disorder (MOUD) in the form of suboxone or methadone. You may experience feeling some withdrawal symptoms and this is normal. The? dose in the Emergency Department is a starting dose and meant to be titrated up once you follow up with a clinic. Please do not feel discouraged, it is a process. The nurse has reviewed with you where to follow up and what information to bring with you, to continue treatment. You also may have been given naloxone (narcan) to take home with you. This medication is used to potentially treat opiate overdose. If you decide you want to stop or cut down on how much you?re using, you can call or walk into our outpatient Addiction Treatment office: [facility] (M-F 9am-5p) [address] [place] [address], [address] [phone] You may have been provided with safer injection?items, please take time to take care of YOU and your health. Use new supplies whenever possible to lessen the chances of infections and other illnesses.? ?If you need more supplies, please go [facility],? [address] [place] [address] OR you can call or text to coordinate delivery of safer supplies. You were also provided a list of several treatment providers in the area.? If you experience any worsening symptoms you cannot control please return to the ED or call 911. Please follow up at your next appointment. Things to look out for are fevers, chest pain, shortness of breath, severe pain, dizziness, fainting or any other concerns. Alcohol use disorder You were seen in the Emergency Department today for treatment of alcohol use disorder.? You may have been given medications to help with your withdrawal symptoms.? Please do not drink alcohol with them. This is very dangerous and can cause respiratory depression or other adverse reactions depending on the medication. If you would like to cut down or stop your alcohol use please consider calling our outpatient Addiction Treatment office:? [facility] (M-F 9a-5p) [address] [place] [address] You have also been given a list of treatment providers in the area that can assist as well.? If you experience seizures, vomiting blood, black stools, falls, severe headache, chest pain, fevers, trouble breathing, hallucinations or any other concerns you need to call 911 or seek immediate care. Please stay hydrated. Prescriptions: No Action Anbesol (benzocaine) 10 % gel 1 appl mucous membrane QID PRN (Reason: mouth irritation) Qty: 9 0RF omeprazole magnesium [Prilosec OTC] 20 mg tablet,delayed release (DR/EC) 20 mg PO BID Qty: 30 0RF acetaminophen [Tylenol Extra Strength] 500 mg tablet 500 mg PO Q6H PRN (Reason: fever or pain) Qty: 14 0RF lidocaine [Lidoderm] 5 % adhesive patch,medicated 1 patch topical DAILY MDD remove after 12 hours PRN (Reason: pain) Qty: 30 0RF Rx Instructions: leave on most painful area for up to 12 hrs naproxen 500 mg tablet 500 mg PO BID PRN (Reason: pain) 10 Days Qty: 20 0RF ibuprofen 600 mg tablet 600 mg PO Q6H PRN (Reason: pain) Qty: 30 0RF ketorolac 10 mg tablet 10 mg PO TID PRN (Reason: pain) 5 Days Qty: 15 0RF Rx Instructions: Tolerated IM in the department prednisone 20 mg tablet 40 mg PO DAILY 5 Days Qty: 10 0RF doxycycline monohydrate 100 mg capsule 100 mg PO BID 10 Days Qty: 20 0RF lidocaine [Lidoderm] 5 % adhesive patch,medicated 1 patch topical DAILY Qty: 15 0RF Rx Instructions: leave on most painful area for up to 12 hrs ketorolac 10 mg tablet 10 mg PO TID 5 Days Qty: 15 0RF ibuprofen 600 mg tablet 600 mg PO TID PRN (Reason: pain) Qty: 14 0RF ibuprofen 600 mg tablet 600 mg PO Q6H PRN (Reason: pain) Qty: 20 0RF naproxen [Naprosyn] 500 mg tablet 500 mg PO BID Qty: 20 0RF ibuprofen 600 mg tablet 600 mg PO Q6H PRN (Reason: fever or pain) Qty: 30 0RF cyclobenzaprine 10 mg tablet 10 mg PO TID PRN (Reason: muscle spasm) Qty: 14 0RF ibuprofen 400 mg tablet 400 mg PO Q8H PRN (Reason: fever or pain) Qty: 14 0RF polyethylene glycol 3350 [Miralax] 17 gram/dose powder 17 g PO BID Qty: 238 0RF Rx Instructions: Use twice daily until you have daily, soft formed stools then reduce frequency to daily. Stop if you develop diarrhea. methadone 90 mg PO DAILY Stand Alone Forms: Work/School Release Interventions: ED Discharge Assessment Last Done: 10/09/25 14:13 Discharge Date/Time: 10/09/25 14:14 Print Language: Kyrgyz
[2025-10-09 14:13] VITALS: BP 125/64; PULSE 82; RESP 18; TEMP 36.3; O2SAT 98
--- OUTSIDE RECORDS SUMMARY | 2025-10-09 20:02 | XMS_ITS | Patient Health Record ---
Author Organization [facility] Address [address] [place] [address] Care Team Providers Care Forcer Maker Name Role Phone [facility] Provi julian [phone] Debra Mckenzie Unavailable Reason For Referral No Information Plan Of Treatment No Information Insurance Providers Payer Name Payer Address Payer Phone Subscriber Number Group Number Insured Name Patient Relationship to Insured Coverage Start Date Coverage End Date [place] Standard [address] [place] [id number] LeungSarah Alex Posada Self - patient is the insured [employer] [address] [place] [address] [phone] LeungAlex Busch Self - patient is the insured 0 0
== END 2025-10-09 14:14 | disposition home or self-care (01) ==
PROVIDERS: Emergency Provider Emergency Medicine Emergency Medical Services; PCP Dentist General Practice
DX: F19.10 Other psychoactive substance abuse, uncomplicated (principal); F31.9 Bipolar disorder, unspecified; F17.200 Nicotine dependence, unspecified, uncomplicated; Z71.6 Tobacco abuse counseling
CPT/HCPCS: 99282